=== PATIENT | male | born 1950 | race Caucasian/White ===

== ENCOUNTER 2019-06-16 09:07 | Outpatient (RCR) | payer MEDICAID, SELFPAY | END 2019-07-15 23:59 | disposition home or self-care (01) | LOC: WOUND 09:07 | PROVIDERS: Family Provider Nurse Practitioner; PCP Nurse Practitioner; Visit Provider Nurse Practitioner Family | DX: Z09 Encounter for follow-up examination after completed treatment for conditions other than malignant neoplasm (principal) | CPT/HCPCS: 99214; G0463 ==

== ENCOUNTER 2019-06-28 10:37 | Outpatient (CLI) | payer MEDICAID, SELFPAY ==
--- NOTE | 2019-06-28 10:46 | USCV_ITS ---
Jaime Olivares Age: 69 Gender: M : 1950 Exam Date: 06/28/2019 10:51 Ordering Phys: Marylou Song Technologist: [place] [facility] [place]ication: NON HEALING ULCER RIGHT LEFT Brachial 128.00 mmHg Brachial 127.00 mmHg Pressure (mmHg) Waveform Pressure (mmHg) Waveform 156.00 LOSS PREVENTION ASSOCIATE 128.00 119.00 DPA 146.00 1.22 Ankle/Brachial Index 1.14 113.00 Pre-Exercise Toe Pressure 112.00 0.88 Pre-Exercise Toe/Brachial Index 0.88 FINDINGS Normal resting ABIs bilaterally Normal resting TBIs bilaterally CONCLUSIONS No significant arterial obstruction, based on the above findings Dr Lilly Rowell MD [facility] (Electronically Signed) Final Date: 28 June 2019 19:33 S
== END 2019-06-28 10:38 | disposition home or self-care (01) ==
PROVIDERS: Family Provider Nurse Practitioner; PCP Nurse Practitioner; Visit Provider Nurse Practitioner Family
DX: M79.605 Pain in left leg (principal); M79.604 Pain in right leg
CPT/HCPCS: 93922

== ENCOUNTER → 2019-07-18 09:35 | Outpatient (BNVA) | payer MEDICAID, SELFPAY | PROVIDERS: Family Provider Nurse Practitioner; PCP Nurse Practitioner; Referring Provider Nurse Practitioner Family; Visit Provider Otolaryngology | DX: J38.3 Other diseases of vocal cords (principal); R49.0 Dysphonia; R13.10 Dysphagia, unspecified; J44.9 Chronic obstructive pulmonary disease, unspecified; K21.9 Gastro-esophageal reflux disease without esophagitis; F17.210 Nicotine dependence, cigarettes, uncomplicated | CPT/HCPCS: 31575; 99214 ==

== ENCOUNTER → 2019-08-11 10:08 | Outpatient (BNVA) | payer MEDICAID, SELFPAY | PROVIDERS: Family Provider Nurse Practitioner; PCP Nurse Practitioner; Visit Provider Otolaryngology | DX: J38.3 Other diseases of vocal cords (principal); R49.0 Dysphonia; R13.10 Dysphagia, unspecified; J44.9 Chronic obstructive pulmonary disease, unspecified; K21.9 Gastro-esophageal reflux disease without esophagitis; J30.0 Vasomotor rhinitis; F17.210 Nicotine dependence, cigarettes, uncomplicated | CPT/HCPCS: 99214 ==

== ENCOUNTER → 2019-08-15 15:04 | Outpatient (BNVA) | payer MEDICAID, SELFPAY | PROVIDERS: Family Provider Nurse Practitioner; PCP Nurse Practitioner; Visit Provider Nurse Practitioner Family | DX: Z01.818 Encounter for other preprocedural examination (principal); J43.9 Emphysema, unspecified; R11.0 Nausea | CPT/HCPCS: 71046; 80053; 85025 ==

== ENCOUNTER 2019-08-17 14:00 | Outpatient (RCR) | payer MEDICAID, SELFPAY ==
[2019-08-17 15:20] LABS: ABG PH Result 7.39 (7.35-7.45); Alveolar-Arterial Oxygen Gradi 22.2 mmHg (5-10); Arterial Blood Gas Hematocrit 44.9 % (42-52); Base Excess ABG 7.5 mmol/L (-2.0-2.0); Blood Gas Allen Test Pos; Blood Gas Sample Site Radial, right; Blood Gas Sample Type Arterial; Carboxyhemoglobin 5.9 %THgb (0.4-20.1); HCO3 ABG 34.5 mmol/L (22-26); HGB O2 Sat 86.5 % (95-100); Ionized Calcium Level - ABG 1.2 mmol/L (1.1-1.4); Methemoglobin 0.8 % (0.4-1.5); Oxygen Device ROOM AIR; Oxygen Saturation ABG 92.7; Potassium Level - ABG 3.8 mmol/L (3.5-5.0); Total Hemoglobin 14.7 g/dL (14-18)
--- NOTE | 2019-08-17 16:20 | PFTS_ITS ---
Date of Study:08/17/19 Date of Dictation: MECHANICS: Forced vital capacity (FVC) is reduced. Forced expiratory volume in one second (FEV1) is reduced. FEV1/FVC is reduced. FLOW VOLUME LOOP: Reduced flow at all lung volumes with significant scooping. LUNG VOLUMES: Total lung capacity (TLC) is normal. Residual volume (RV) is increased. DIFFUSING CAPACITY FOR CARBON MONOXIDE: Moderately reduced but not corrected for hemoglobin. INTERPRETATION: The pulmonary function tests are consistent with very severe airflow obstruction. Lung volumes are consistent with air trapping. Gas exchange (DLCO) is moderately reduced. MTDD
== END 2019-09-13 23:59 | disposition home or self-care (01) ==
LOC: RT 14:00
PROVIDERS: Internal Medicine Critical Care Medicine; Family Provider Nurse Practitioner; PCP Nurse Practitioner; Visit Provider Nurse Practitioner Family
DX: J44.9 Chronic obstructive pulmonary disease, unspecified (principal); F17.210 Nicotine dependence, cigarettes, uncomplicated
CPT/HCPCS: 36600; 80051; 82810; 83986; 94010; 94060; 94726; 94729

== ENCOUNTER 2019-08-24 07:53 | Day surgery (SDC) | payer MEDICAID, SELFPAY ==
[2019-08-23 10:16] VITALS: BMI 30.9
[2019-08-24] VITALS (10 sets, daily range): BP systolic 133–150; BP diastolic 63–82; PULSE 77–88; RESP 15–24; TEMP 36.6–36.9; O2SAT 93–98
--- NOTE | 2019-08-24 08:12 | W.PM.OPSUD ---
Surgery/Procedure H&P Update DATE OF PROCEDURE: August 24, 2019 DATE H&P PERFORMED: 08/11/19 H&P UPDATE INFORMATION: I have reviewed H&P completed within last 30 days, I have examined patient prior to procedure and No changes to prior documentation PREOP DIAGNOSIS: Vocal cord lesion PLANNED PROCEDURE: Operation Date: 08/24/19 09:00 Proposed Procedures p Micro Direct Laryngoscopy [facility] ([id number], [id number])(Not Applicable) - Nikunj Benson MD s EGD(Not Applicable) - Nikunj Benson MD
[2019-08-24] MEDS: sodium chloride 0.9% 1,000 ML 30 ML IV (08:21)
--- NOTE | 2019-08-24 09:37 | P.ANESASSM_ITS ---
Pre-Anesthetic Assessment Pre-Anesthetic Assessment: Height/Weight: Height 1.91 m Weight 112.491 kg Temp Pulse Resp BP Pulse Ox 98.1 F 77 24 H 143/82 98 08/24/19 08:16 08/24/19 08:16 08/24/19 08:16 08/24/19 08:16 08/24/19 08:16 Preop Diagnosis: Vocal cord lesion Proposed Procedure: Operation Date: 08/24/19 09:00 Proposed Procedures p Micro Direct Laryngoscopy [facility] ([id number], [id number])(Not Applicable) - Nikunj Benson MD s EGD(Not Applicable) - Nikunj Benson MD Was Beta Soledad taken within 24 hours: N/A Last intake: Intake Last Liquid Date 08/23/19 Last Liquid Time 22:00 Last Solid Date 08/23/19 Last Solid Time 22:00 Social: Social History: Tobacco and No alcohol Exam: Pre-Anes Outpt Exam: alert, oriented x 3, clear to auscultation bilaterally and regular rate & rhythm Airway: Submandibular: WNL Cervical ROM: Other (Limited ROM) Dentition: False Pulmonary: Pulmonary: COPD (Home O2 4L) Comments: Chronic steroids CV/HEM: CV/HEM: CHF Comments: Very limited functional ability, pedal edema : : None reported Hepatic: Hepatic: None reported GI: GI: GERD Metabolic: Metabolic: Morbid obesity Musc/skel: Musc/skel: Lower Back Pain Comments: Chronic opioid Neuropsych: Neuropsych: None reported Anesthetic Plan: ASA status: 4 Anesthesia: General Risk of > 500 ml blood loss (7ml/kg in children): No Meds/Allergies Current Medications: Current Medications Generic Name Dose Route Start Last Admin Trade Name Freq PRN Reason Stop Dose Admin Sodium Chloride 1,000 mls @ 30 ml s/hr 08/24/19 08:00 08/24/19 08:21 Sodium Chloride 0.9% IV 08/25/19 07:59 30 mls/hr .Q24H VIMAL Administration PFSH Anesthesia PFSH: Medical History (Updated 08/23/19 @ 16:35 by Kaila Reyes MD) Acquired bilateral hammer toes Acute diverticulitis Bee sting allergy Bilateral bunions Bulging lumbar disc Chronic bilateral low back pain Chronic low back pain Chronic nausea Chronic respiratory failure with hypoxia COPD (chronic obstructive pulmonary disease) Degenerative disc disease Dysphagia, unspecified Emphysema, unspecified GERD (gastroesophageal reflux disease) GERD (gastroesophageal reflux disease) History of colon cancer Lesion of true vocal cord Lower extremity edema Mixed hyperlipidemia Nicotine dependence, cigarettes, uncomplicated Onychomycosis MANISH (obstructive sleep apnea) Other specified joint disorders, right shoulder PAD (peripheral artery disease) Polyneuropathy, unspecified Sebaceous cyst of scrotum Segmental and somatic dysfunction of rib cage Vasomotor rhinitis Venous reflux Social History Smoking and tobacco status: current every day smoker cigarettes Years cigarettes smoked: 50 [ Other cigarette details: less than 1/2 pack ] and e- cigarettes E-Cigarette Details: vaporizer device, with nicotine and without nicotine Alcohol intake: never Lives independently: Yes Household members: spouse Marital status: Current occupational status: retired History of recent travel: No Current gender identity: Male Data Anesthesia Cardiac Studies: No Data to Display
--- NOTE | 2019-08-24 09:56 | W.PM.OPSUD ---
Surgery/Procedure H&P Update DATE OF PROCEDURE: August 24, 2019 DATE H&P PERFORMED: 08/23/19 H&P UPDATE INFORMATION: I have reviewed H&P completed within last 30 days, I have examined patient prior to procedure and No changes to prior documentation PREOP DIAGNOSIS: Vocal cord lesion PLANNED PROCEDURE: Operation Date: 08/24/19 09:00 Proposed Procedures p Micro Direct Laryngoscopy [facility] ([id number])(Not Applicable) - Nikunj Benson MD s EGD(Not Applicable) - Nikunj Benson MD
--- NOTE | 2019-08-24 11:03 | PM.OP ---
Operative Report Date of procedure: August 24, 2019 Pre-op Diagnosis: Vocal cord lesion Post-op diagnosis: same Post-op Findings: Bilateral vocal cord exophytic lesion Procedure Done: Esophagogastroduodenoscopy with biopsy of gastric and esophageal mucosa, MicroDirect laryngoscopy with removal of vocal cord lesions Specimens removed/disposition: Bilateral vocal cord lesions, mid esophagus, distal esophagus, gastric biopsy Surgeon: Nikunj Benson Anesthesia: General Complications: None Condition: stable Disposition: PACU Brief History: Mr. Olivares is a 69-year-old male with severe COPD who presents with exophytic lesion on the vocal folds Procedure: The patient was taken to the operating room and under satisfactory general endotracheal anesthesia of the gastroscope was introduced into the post cricoid area. The esophagus stomach and duodenum were examined. The exam was significant for an erosive distal esophagitis extending 1 cm superiorly and encompassing about 20% of the circumference of the distal esophagus from 6:00 to 8:00. The gastric mucosa also showed inflammatory changes. The esophagus also demonstrated to regularization without improve movement or resolution with insufflation. The duodenal mucosa was unremarkable. Biopsies were taken of the gastric distal esophageal and mid esophageal mucosa. The laryngoscope was used to examine the posterior pharyngeal wall lateral pharyngeal wall Endo and excellent larynx. The exam was significant for an exophytic lesion on the left vocal fold right vocal fold and anterior cord. Pattern Layout Worker biopsies were taken these were sent separately for analysis. The debrider was used to then remove the bulk of the lesion. Blood loss was minimal the patient tolerated the procedure well no complications occurred he was allowed awaken and taken to the recovery room where he was observed during the observation time postoperative care instructions and counseling were given to the patient and his . Once all parties verbalized understanding of all instructions and once the patient met discharge criteria he was discharged in satisfactory and stable condition.
--- NOTE | 2019-08-24 11:25 | SUR.PHASEI ---
1114 PATIENT TO PACU AT THIS TIME. RR EVEN AND UNLABORED, ORAL AIRWAY IN PLACE. NC O2, SPO2 95%. PATIENT NOTED TO BE SLEEPING, AIRWAY PROTECTED.
--- NOTE | 2019-08-24 11:46 | PC.NURSE ---
1146- ORAL AIRWAY OUT. CANNULA AT 4LPM, SAT 96%
--- NOTE | 2019-08-24 13:13 | PM.PACU ---
PACU note Post-Anesthesia Exam: awake and vital signs stable Disposition: discharged
== END 2019-08-24 13:29 | disposition home or self-care (01) ==
PROVIDERS: Family Provider Nurse Practitioner; Visit Provider Otolaryngology
PROC: 0CJS8ZZ Inspection of Larynx, Via Natural or Artificial Opening Endoscopic (ICD-10-PCS; CPT 31541; principal; 2019-08-24 09:00)
PROC: 0DJ08ZZ Inspection of Upper Intestinal Tract, Via Natural or Artificial Opening Endoscopic (ICD-10-PCS; CPT 43235; 2019-08-24 09:00)
DX: J38.3 Other diseases of vocal cords (principal); Z99.81 Dependence on supplemental oxygen; I50.9 Heart failure, unspecified; K21.9 Gastro-esophageal reflux disease without esophagitis; E66.01 Morbid (severe) obesity due to excess calories; Z68.31 Body mass index [BMI] 31.0-31.9, adult; J43.9 Emphysema, unspecified; Z85.038 Personal history of other malignant neoplasm of large intestine; E78.2 Mixed hyperlipidemia; G47.33 Obstructive sleep apnea (adult) (pediatric); F17.210 Nicotine dependence, cigarettes, uncomplicated
CPT/HCPCS: 31541; 43239; 12345; 88305; J1100; J2405; J2704; J3535; J7030

== ENCOUNTER 2019-11-09 06:50 | Outpatient (RCR) | payer MEDICAID, SELFPAY ==
--- NOTE | 2019-11-09 | CT_ITS ---
Radiation Therapy Planning CT images; total exam DLP: 445.55 mGy-cm MTDD
== END 2019-11-13 23:59 | disposition home or self-care (01) ==
LOC: ONCMED 06:50
PROVIDERS: PCP Nurse Practitioner; Visit Provider Radiology Radiation Oncology
DX: B37.9 Candidiasis, unspecified (principal); J96.10 Chronic respiratory failure, unspecified whether with hypoxia or hypercapnia; J38.7 Other diseases of larynx; Z74.09 Other reduced mobility
CPT/HCPCS: 77290; 77334

== ENCOUNTER 2019-12-13 06:50 | Outpatient (RCR) | payer MEDICAID, SELFPAY ==
--- NOTE | 2019-11-22 11:14 | N.ONRAD NP_ITS ---
Radiation Oncology Weekly Treatment Management Patient: Jaime Olivares MR#: [id number] : 1950> Age: 69> Sex: Male Dictated by: India Gan Date of Service: 11/22/2019 Referring Physician(s) : Dr. 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 The patients has had Course: Glottis 63Gy Treatment Site: Glottis 63Gy, Ref. ID: [id number], Energy: 6X, Dose/Fx (cGy): 225, #Fx: , Dose Correction (cGy): 0, Total Dose (cGy): 1,125, Start Date: 11/16/2019, Elapsed Days: 6. Patient Has complaint of having mouth sores. Patient was seen at the [facility] and prescribed Nystatin with Lidocaine for it. Nursing assessment of patient as follows: Constitutional Complains of mild fatigue. Denies lack of appetite, fever and night sweats. ENMT Complains of stomatitis. Denies dysphagia, ear pain, mouth dryness and altered taste. Respiratory Complains of cough which is non-productive. Complains of dyspnea on 4 L 02. Complains of wheezing. Questions encouraged and answered. I encouraged patient to call with any concerns. Patient verbalized understanding and denied any further needs at this time. Vital Signs: Performed on 11/22/2019 10:53 AM BMI - 32.473 kg/m2 (high), Height - 75.00 in, Weight - 259.8 lbs, Temperature - 97.4 f, Pulse - 80, Respiration - 22, O2 Sat - 97 %, Pain - 0 and BP - 122/ 74 mm(hg). Signed by: India Gan>11/22/2019 11:13:05 AM <<Signature on File>>
--- NOTE | 2019-11-29 12:18 | ONCRAD TMN_ITS ---
Radiation Oncology Weekly Treatment Management Patient: Jaime Olivares MR#: [id number] : 1950> Age: 69> Sex: Male Dictated by: Dr. Markie Swanson Date of Service: 11/29/2019 Referring Physician(s) : Dr. 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 ID: [id number], Energy: 6X, Dose/Fx (cGy): 225, #Fx: , Dose Correction (cGy): 0, Total Dose (cGy): 2,250, Start Date: 11/16/2019, End Date: 11/29/2019, Elapsed Days: 13 Current Complaints/Interval History: Sore throat is his main complaint. He states that his pain was beginning to improve after his biopsy and then it began to worsen again after starting radiation. He has no trouble swallowing but does notice discomfort with swallowing any type of liquid or food. He also notices more irritation and dryness when he awakens in the morning. His oxygen needs are unchanged and he has not experienced any increase in dyspnea. His hoarseness is stable and has been present for at least a few months. Constitutional Complains of mild fatigue. Denies lack of appetite, fever and night sweats. ENMT Complains of dysphagia, mouth dryness and altered taste. Denies ear pain and stomatitis. Neck Denies neck pain. Integumentary No redness to the neck Respiratory Complains of cough, dyspnea on 6 liters of 02 and wheezing. Current Medications: Advair Diskus, albuterol Sulfate, valium, xyzal. Allergies: fentaNYL, Gabapentin, Methadone HCl and Penicillins. Vital Signs: Performed on 11/29/2019 11:04 AM BMI - 32.598 kg/m2 (high), Height - 75.00 in, Weight - 260.8 lbs, Temperature - 98.8 f, Pulse - 66, Respiration - 24, O2 Sat - 93 % (low), Pain - 9 and BP - 113/ 57 mm(hg)(/low). Physical Exam: Appears stable, no skin erythema or desquamation. Chronically ill. Confined to a wheelchair. Skin of his neck has no irritation. Oral cavity and oropharynx exam reveals no evidence of yeast or viral ulcerations. Performance Status: 3 - Capable of only limited self-care, confined to bed or chair more than 50% of waking hours. (ECOG) Lab: None pending in Radiation Oncology. Imaging: No new diagnostic imaging was performed since the last weekly treatment visit. All radiation therapy related imaging (including but not limited to kV, MV, and CBCT generated images) was reviewed. Appropriate changes, if any, were made to assure accurate target localization. Impression/Plan: Tolerating treatment reasonably well with expected sore throat . I discussed that it will last throughout treatment and for at least 2 to 3weeks following the completion of treatment. For treatment we will start with Magic mouthwash. He will probably need narcotics later in treatment.. Continue treatment as planned. Will call a prescription for Magic mouthwash to his pharmacy in [place]. CPT: 60328 Signed by: Dr. Markie Swanson>11/29/2019 12:17:22 PM <<Signature on File>>
--- NOTE | 2019-12-06 10:32 | ONCRAD TMN_ITS ---
Radiation Oncology Weekly Treatment Management Patient: Jaime Olivares MR#: [id number] : 1950> Age: 69> Sex: Male Dictated by: Dr. Markie Swanson Date of Service: 12/06/2019 Referring Physician(s) : Dr. 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 ID: [id number], Energy: 6X, Dose/Fx (cGy): 225, #Fx: , Dose Correction (cGy): 0, Total Dose (cGy): 3,150, Start Date: 11/16/2019, Elapsed Days: 20 Chief Complaint/History of Present Illness: He seemed drowsy when I went in the room, but he then proceeded to discuss his past history of evaluations by Dr. Chavez and Dr. Benson. He questioned whether his pathology is truly cancer. 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 I discussed that with him. His pain with swallowing is stable. His voice continues to be hoarse, although it is better this week than last week. I discussed these problems with him. I told him that he will likely be very hoarse, possibly down to a whisper, by the time he finishes radiation. We discussed that the voice usually recovers slowly over 6 weeks. We then discussed the sore throat. He is getting benefit from Magic mouthwash. He asked about the timing of resolution of the sore throat. I told him it would take 2 to 3 weeks to improve. I told him that there may still be some discomfort even at that point. His throat is clear on examination. His neck is free of lymphadenopathy. He has noticed some swelling on the right at times. I do not detect any today. He is developing a skin reaction with hyperpigmentation and moderate erythema. Aquaphor was recommended. Current Medications: Advair Diskus, albuterol Sulfate, valium, xyzal. Allergies: fentaNYL, Gabapentin, Methadone HCl and Penicillins. Current Complaints/Review of Systems: Constitutional - Complains of lack of appetite off and on. Complains of severe fatigue. Denies fever and night sweats. ENMT - Complains of dysphagia. Denies ear pain, mouth dryness, stomatitis and altered taste. Neck - Complains of swelling of the neck on the right side of the neck. Denies neck pain. Integumentary - Has brisk redness to the neck. Respiratory - Complains of cough which is non-productive. Complains of dyspnea and is on 6 L of 02. Complains of wheezing. Vital Signs: Performed on 12/06/2019 10:01 AM BMI - 33.073 kg/m2 (high), Height - 75.00 in, Weight - 264.6 lbs, Temperature - 98.2 f, Pulse - 79, Respiration - 16, O2 Sat - 93 % (low), Pain - 8 and BP - 100/ 68 mm(hg). Physical Exam: Appears stable, no skin erythema or desquamation. Performance Status: 3 - Capable of only limited self-care, confined to bed or chair more than 50% of waking hours. (ECOG) Lab: None pending in Radiation Oncology. Imaging: No new diagnostic imaging was performed since the last weekly treatment visit. All radiation therapy related imaging (including but not limited to kV, MV, and CBCT generated images) was reviewed. Appropriate changes, if any, were made to assure accurate target localization. Impression/Plan: Tolerating treatment with expected side effects. Continue treatment as planned. CPT: 74380 Signed by: Dr. Markie Swanson>12/06/2019 10:31:07 AM <<Signature on File>>
--- NOTE | 2019-12-13 10:48 | ONCRAD TMN_ITS ---
Radiation Oncology Weekly Treatment Management Patient: Jaime Olivares MR#: [id number] : 1950> Age: 69> Sex: Male Dictated by: Dr. Markie Swanson Date of Service: 12/13/2019 Referring Physician(s) : Dr. 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 ID: [id number], Energy: 6X, Dose/Fx (cGy): 225, #Fx: , Dose Correction (cGy): 0, Total Dose (cGy): 3,933.7, Start Date: 11/16/2019, Elapsed Days: 27 Chief Complaint/History of Present Illness: Mr. Olivares is slightly better than when he was last seen. His voice is stronger. Magic mouthwash is helping his sore throat. He has no discomfort of the skin of the neck. His weight is up about 14 pounds since his last evaluation. He states he is not on any fluid pills. He denies increasing the salt in his diet. The weight gain has not resulted in any pulmonary symptoms. His states that he has had problems with nausea. He was on promethazine in the past. That stopped working and his family physician recently put him on another medication that is not working. They say it is a nausea medication and not an acid teacher vocational training. I asked that they call in the name of the recently prescribed nausea medication. I told Mr. Olivares we will consider calling in an alternate to his drugstore. Current Medications: Advair Diskus, albuterol Sulfate, mouthwash Compounding Base, valium, xyzal. Allergies: fentaNYL, Gabapentin, Methadone HCl and Penicillins. Current Complaints/Review of Systems: Constitutional - Complains of severe fatigue. Complains of change in weight in which his weight is up 14.2 lbs. since last OTV. Denies lack of appetite, fever and night sweats. ENMT - Complains of dysphagia and stomatitis. Denies ear pain, mouth dryness and altered taste. Neck - Denies neck pain. Integumentary - Denies rash. Has small spot of desquamtion to the left side of the neck. Respiratory - Complains of cough which is non-productive. Complains of dyspnea and is on 6L 02. Complains of wheezing. Denies hiccoughs. Vital Signs: Performed on 12/13/2019 9:49 AM BMI - 34.923 kg/m2 (high), Height - 75.00 in, Weight - 279.4 lbs, Temperature - 97.4 f, Pulse - 79, Respiration - 24, O2 Sat - 98 %, Pain - 6 and BP - 113/ 67 mm(hg). Physical Exam: Appears stable, no skin erythema or desquamation. Moderate erythema of the skin of the neck in the treatment area. His oral cavity and oropharynx are free of ulceration, yeast, or lesions. Performance Status: 3 - Capable of only limited self-care, confined to bed or chair more than 50% of waking hours. (ECOG) Lab: None pending in Radiation Oncology. Imaging: No new diagnostic imaging was performed since the last weekly treatment visit. All radiation therapy related imaging (including but not limited to kV, MV, and CBCT generated images) was reviewed. Appropriate changes, if any, were made to assure accurate target localization. Impression/Plan: Tolerating treatment well with expected side effects. Continue treatment as planned. We discussed that his hoarseness is likely to worsen before he finishes treatment. I told him it may take 4 to 6 weeks after treatment for his voice to improve. We will continue Magic mouthwash for the sore throat. He has Aquaphor to apply to the skin reaction. We may give him an alternate nausea medication. CPT: 16249 Signed by: Dr. Markie Swanson>12/13/2019 10:46:51 AM <<Signature on File>>
== END 2019-12-13 23:59 | disposition home or self-care (01) ==
LOC: ONCMED 06:50
PROVIDERS: PCP Nurse Practitioner; Visit Provider Specialist
DX: Z51.0 Encounter for antineoplastic radiation therapy (principal); C32.0 Malignant neoplasm of glottis; I73.9 Peripheral vascular disease, unspecified; G47.33 Obstructive sleep apnea (adult) (pediatric); E87.2 Acidosis; J30.0 Vasomotor rhinitis; J38.3 Other diseases of vocal cords; K21.9 Gastro-esophageal reflux disease without esophagitis; J44.9 Chronic obstructive pulmonary disease, unspecified; Z79.899 Other long term (current) drug therapy
CPT/HCPCS: 77295; 77300; 77334; 77336; 77387; 77412

== ENCOUNTER 2019-12-30 07:29 | Outpatient (RCR) | payer MEDICAID, SELFPAY ==
--- NOTE | 2019-12-21 13:42 | ONCRAD TMN_ITS ---
Radiation Oncology Weekly Treatment Management Patient: Jaime Olivares MR#: [id number] : 1950 Age: 69 Sex: Male Dictated by: Dr. Juan Diego Roe Date of Service: 12/21/2019 Referring Physician(s) : Dr. 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 ID: [id number], Energy: 6X, Dose/Fx (cGy): 225, #Fx: , Dose Correction (cGy): 0, Total Dose (cGy): 4,833.7, Start Date: 11/16/2019, Elapsed Days: 35 Chief Complaint/History of Present Illness: The patient reports that his voice is stronger, and he no longer has painful swallowing. The patient's weight is down 10.4 pounds this prior week while the patient is undergoing Lasix therapy. The patient reports that his appetite is not diminished. Current Medications: Advair Diskus, albuterol Sulfate, mouthwash Compounding Base, prochlorperazine Maleate, valium, xyzal. Allergies: fentaNYL, Gabapentin, Methadone HCl and Penicillins. Current Complaints/Review of Systems: Constitutional - Complains of severe fatigue. Complains of change in weight in which he had a loss 10.4 lbs. from last week related to fluid loss and being prescribed Lasix for 3 days.. Denies lack of appetite, fever and night sweats. ENMT - Complains of mouth dryness. Denies dysphagia but has occasoinal odynophagia, ear pain, stomatitis and altered taste. Neck - Denies neck pain. Integumentary - Has redness to the neck. Vital Signs: Performed on 12/21/2019 9:47 AM BMI - 33.598 kg/m2 (high), Height - 75.00 in, Weight - 268.8 lbs, Temperature - 97.5 f, Pulse - 84, Respiration - 24, O2 Sat - 100 %, Pain - 0 and BP - 122/ 69 mm(hg). Physical Exam: Erythema and dry desquamation is appreciated on the skin overlying the glottic larynx. Performance Status: 3 - Capable of only limited self-care, confined to bed or chair more than 50% of waking hours. (ECOG) Lab: None pending in Radiation Oncology. Imaging: No new diagnostic imaging was performed since the last weekly treatment visit. All radiation therapy related imaging (including but not limited to kV, MV, and CBCT generated images) was reviewed. Appropriate changes, if any, were made to assure accurate target localization. Impression/Plan: Tolerating treatment well with expected side effects. The patient does not require pain medication optimization at this time. Continue treatment as planned. CPT: 34780 Signed by: Dr. Juan Diego Roe>12/21/2019 1:41:49 PM <<Signature on File>>
--- NOTE | 2019-12-27 17:29 | ONCRAD TMN_ITS ---
Radiation Oncology Weekly Treatment Management Patient: Jaime Olivares MR#: [id number] : 1950> Age: 69> Sex: Male Dictated by: Dr. Juan Diego Roe Date of Service: 12/27/2019 Referring Physician(s) : Dr. 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 ID: [id number], Energy: 6X, Dose/Fx (cGy): 225, #Fx: , Dose Correction (cGy): 0, Total Dose (cGy): 5,733.7, Start Date: 11/16/2019, Elapsed Days: 41 Interim History: The patient reports that he has occasional odynophagia, but it is improving. He reports no neck pain. Current Medications: Advair Diskus, albuterol Sulfate, mouthwash Compounding Base, prochlorperazine Maleate, valium, xyzal. Allergies: fentaNYL, Gabapentin, Methadone HCl and Penicillins. Current Complaints/Review of Systems: Vital Signs: Performed on 12/27/2019 11:42 AM BMI - 34.298 kg/m2 (high), Height - 75.00 in, Weight - 274.4 lbs, Temperature - 98.5 f, Pulse - 88, Respiration - 2, O2 Sat - 93 % (low), Pain - 10 and BP - 129/ 64 mm(hg)(/low). Physical Exam: Bright erythema is appreciated on the bilateral neck, there is no evidence of moist desquamation. Performance Status: 3 - Capable of only limited self-care, confined to bed or chair more than 50% of waking hours. (ECOG) Lab: None pending in Radiation Oncology. Imaging: . All radiation therapy related imaging (including but not limited to kV, MV, and CBCT generated images) was reviewed. Appropriate changes, if any, were made to assure accurate target localization. Impression/Plan: Tolerating treatment well with expected side effects. Continue treatment as planned. CPT: 17776 Signed by: Dr. Juan Diego Roe>12/27/2019 5:27:28 PM <<Signature on File>>
== END 2020-01-13 23:59 | disposition home or self-care (01) ==
LOC: ONCMED 07:29
PROVIDERS: PCP Nurse Practitioner; Visit Provider Radiology Radiation Oncology
DX: Z51.0 Encounter for antineoplastic radiation therapy (principal); C32.0 Malignant neoplasm of glottis
CPT/HCPCS: 77336; 77387; 77412

== ENCOUNTER → 2020-01-18 08:47 | Outpatient (BNVA) | payer MEDICAID, SELFPAY | PROVIDERS: PCP Nurse Practitioner; Visit Provider Nurse Practitioner | DX: R60.0 Localized edema (principal) | CPT/HCPCS: 80048; 83735; 83880 ==

== ENCOUNTER 2020-02-06 06:18 | Outpatient (RCR) | payer MEDICAID, SELFPAY ==
--- NOTE | 2020-02-07 12:40 | ONCRAD EPV_ITS ---
Radiation Oncology Established Patient Visit Patient: Elise Sandoval [id number] : 1950> Age: 70> Sex: Male> Dictated by: Dr. Juan Diego Roe Date of Service: 02/06/2020 Referring Physician(s) : Dr. 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 ID: [id number], Energy: 6X, Dose/Fx (cGy): 225, #Fx: , Dose Correction (cGy): 0, Total Dose (cGy): 6,183.7, Start Date: 11/16/2019, End Date: 12/29/2019, Elapsed Days: 43 Treatment Site: Glottis 63Gy, Ref. ID: [id number], Energy: 6X, Dose/Fx (cGy): 116.3, #Fx: , Dose Correction (cGy): 0, Total Dose (cGy): 116.3, Start Date: 12/30/2019, End Date: 12/30/2019, Elapsed Days: 0 Current History: The patient is seen in follow-up approximately 1 month after completing radiation therapy. He reports that his swallowing has significantly improved. He has no complaints aside from fatigue and bilateral lower extremity edema. Current Medications: Advair Diskus, albuterol Sulfate, lasix, mouthwash Compounding Base, valium, xyzal. Allergies: fentaNYL, Gabapentin, Methadone HCl and Penicillins. Current Complaints / Review of Systems: Constitutional - Complains of severe fatigue. Denies lack of appetite, fever, night sweats and change in weight. Eyes - Denies blurred vision. ENMT - Complains of mouth dryness occasionally. Denies dysphagia, ear pain, stomatitis and altered taste. Neck - Denies neck pain. Integumentary - Denies rash. Cardiovascular - Complains of edema in the both feet and ankles. Denies arrhythmias and chest pain. Respiratory - Complains of a moderate cough which is non-productive. Complains of dyspnea on 4 L 02. Complains of wheezing. Denies hemoptysis. Gastrointestinal - Denies abdominal pain, constipation, diarrhea, heartburn / dyspepsia, melena / GI bleeding, nausea and vomiting. Genitourinary (M) - Denies dysuria, frequency, nocturia and urgency. Musculoskeletal - Complains of joint pain genralized all over and muscle weakness. Denies bone pain. Neurologic - Denies dizziness and headaches. Psychiatric - Complains of depression. Endocrine - Denies diabetes and thyroid disease. Hematologic/Lymphatic - Denies tender or enlarged lymph nodes.. Vital Signs: Performed on 02/06/2020 8:22 AM BMI - 34.698 kg/m2 (high), Height - 75.00 in, Weight - 277.6 lbs, Temperature - 98.8 f, Pulse - 82, Respiration - 22, O2 Sat - 93 % (low), Pain - 10 and BP - 138/ 81 mm(hg). Physical Exam: General: Alert and oriented x 3. No acute distress. HEENT: Normocephalic, atraumatic. Extraocular Movements Intact: Pupils Equal, Round, Reactive to Light and Accommodation: Sclerae anicteric. Oral cavity is clear without lesions, masses or ulcers. NECK: Supple without supraclavicular or jugular lymphadenopathy. LUNGS: Clear to auscultation bilaterally without rales, rhonchi or wheeze. HEART: Regular rate and rhythm, normal S1 and S2 without murmur, gallop or rub. MUSCULOSKELETAL: No tenderness or percussion pain over the axial skeleton, scapulae or pelvis. EXTREMITIES: Bilateral lower extremity edema is appreciated. NEUROLOGIC: Cranial nerves II ???XII are grossly intact. Normal sensation, strength 5/5 in all extremities, normal gait, no ataxia. Performance Status: 3 - Capable of only limited self-care, confined to bed or chair more than 50% of waking hours. (ECOG) Lab: None pending. Pathology: Primary, c32.0 - malignant neoplasm of glottis, Diagnosed 10/20/2019 (active) stage 0, tis, n0, m0. Imaging: See HPI Impression: The patient is a 70-year-old male who completed radiation therapy for management of Tis carcinoma of the glottic larynx. His acute side effects from radiation therapy are resolving well. I plan to follow-up in 2 months with a nasolaryngoscopy at that time. Signed by: 02/07/2020 12:40:09 PM <<Signature on File>> Time spent with patient: CPT Code: CPT Code:
== END 2020-02-13 23:59 | disposition home or self-care (01) ==
LOC: ONCMED 06:18
PROVIDERS: PCP Nurse Practitioner; Visit Provider Radiology Radiation Oncology
DX: C32.0 Malignant neoplasm of glottis (principal)

== ENCOUNTER 2020-04-04 08:39 | Outpatient (CLI) | payer MEDICAID, SELFPAY ==
--- NOTE | 2020-04-04 12:04 | ONCRAD EPV_ITS ---
Radiation Oncology Established Patient Visit Patient: Elise Sandoval [id number] : 1950> Age: 70> Sex: Male> Dictated by: Dr. Juan Diego Roe Date of Service: 04/04/2020 Referring Physician(s) : Dr. 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 (Moderate dysplasia was observed on the left true cord, and high-grade dysplasia was observed in the larynx biopsy). Treatment rendered: 63 Gy in 29 fractions. This consisted of 61.837 Gy in 28 fractions of 2.25 Gy/fraction (11/16/19 ??? 12/29/19). Due to a maintenance issue with the treating LINAC, the remaining 1.163 Gy was delivered in 1 fraction on 12/30/2019. Current History: The patient is seen today in follow-up and he reports persistent pain in his throat, and odynophagia to solids and liquids. He reports having recently been diagnosed with oral thrush which was treated with a mouthwash compounding base by his primary care physician. The patient reports that symptoms moderately improved with this medication. Current Medications: Advair Diskus, albuterol Sulfate, clindamycin HCl, lasix, lidocaine HCl, magnesium, mouthwash Compounding Base, markell-Synephrine Cold & Sinus, potassium Chloride ER, valium, xyzal. Allergies: fentaNYL, Gabapentin, Methadone HCl and Penicillins. Current Complaints / Review of Systems: Constitutional - Complains of moderate fatigue. Complains of change in weight down about 30 lbs. from fluid loss in bilateral lower extremity. Denies lack of appetite, fever and night sweats. Eyes - Denies blurred vision. ENMT - Complains of dysphagia and also has odynophagia, mouth dryness and altered taste but is improving. Denies ear pain, problems with hearing, stomatitis and tinnitus. Neck - Denies neck pain, decreased range of motion and swelling of the neck. Integumentary - Denies rash. Cardiovascular - Complains of edema in the left leg. Denies arrhythmias and chest pain. Respiratory - Complains of a mild cough which is productive. Complains of dyspnea on 4 L 02. Complains of wheezing. Denies hemoptysis and hiccoughs. Gastrointestinal - Complains of occasional constipation. Denies abdominal pain, diarrhea, heartburn / dyspepsia, melena / GI bleeding and vomiting. Genitourinary (M) - Complains of nocturia occasionally. Denies dysuria, frequency and urgency. Musculoskeletal - Complains of joint pain in the back and generalized all over. Complains of generalized muscle weakness. Denies bone pain. Neurologic - Denies dizziness and headaches. Endocrine - Denies diabetes and thyroid disease. Hematologic/Lymphatic - Denies tender or enlarged lymph nodes.. Vital Signs: Performed on 04/04/2020 9:00 AM BMI - 29.948 kg/m2 (high), Height - 75.00 in, Weight - 239.6 lbs, Temperature - 98.8 f, Pulse - 97, Respiration - 22, O2 Sat - 95 % (low), Pain - 8 and BP - 106/ 70 mm(hg). Physical Exam: General: Alert and oriented x 3. No acute distress. HEENT: Normocephalic, atraumatic. Extraocular Movements Intact: Pupils Equal, Round, Reactive to Light and Accommodation: Sclerae anicteric. Oral cavity is clear without lesions, masses or ulcers. NECK: Supple without supraclavicular or jugular lymphadenopathy. LUNGS: Clear to auscultation bilaterally without rales, rhonchi or wheeze. HEART: Regular rate and rhythm, normal S1 and S2 without murmur, gallop or rub. MUSCULOSKELETAL: No tenderness or percussion pain over the axial skeleton, scapulae or pelvis. NEUROLOGIC: Cranial nerves II ???XII are grossly intact. Normal sensation, strength 5/5 in all extremities, normal gait, no ataxia. Nasolaryngoscopy: Prior to nasolaryngoscopy, a 50/50 solution of 1% lidocaine and 0.5% Markell-Synephrine was atomized into the bilateral nostrils. Nasolaryngoscopy was completed with entrance into the right naris. There was no mucosal irregularity within the nasopharynx, oropharynx, or supraglottic larynx. There was no exophytic lesion on the right cord, left cord, or anterior commissure. However, there was physical exam findings consistent with Angelina on the bilateral true vocal cords (right greater than left). Vocal cords moved freely bilaterally, and the bilateral piriform sinuses were without mucosal irregularity. Performance Status: 3 - Capable of only limited self-care, confined to bed or chair more than 50% of waking hours. (ECOG) Lab: None pending. Pathology: Primary, c32.0 - malignant neoplasm of glottis, Diagnosed 10/20/2019 (active) stage 0, tis, n0, m0. 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 The patient has no clinical exam findings consistent with disease persistence. However, nasolaryngoscopy revealed physical exam findings consistent with Angelina on the bilateral true vocal cords (right greater than left). A prescription for Diflucan was written, 200 mg day 1, 100 mg/day x 13 days. I plan to follow-up with the patient in 2 weeks with a repeat nasolaryngoscopy. Signed by: 04/04/2020 12:02:46 PM <<Signature on File>> Time spent with patient: CPT Code: CPT Code:
== END 2020-04-04 08:40 | disposition home or self-care (01) ==
PROVIDERS: PCP Nurse Practitioner; Visit Provider Radiology Radiation Oncology
DX: C32.0 Malignant neoplasm of glottis (principal)

== ENCOUNTER 2020-04-19 06:38 | Outpatient (CLI) | payer MEDICAID, SELFPAY ==
--- NOTE | 2020-04-19 11:25 | ONCRAD EPV_ITS ---
Radiation Oncology Established Patient Visit Patient: Elise Sandoval [id number] : 1950 Age: 70 Sex: Male Dictated by: Dr. Juan Diego Roe Date of Service: 04/19/2020 Referring Physician(s) : Dr. 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 (Moderate dysplasia was observed on the left true cord, and high-grade dysplasia was observed in the larynx biopsy). Treatment rendered: 63 Gy in 29 fractions. This consisted of 61.837 Gy in 28 fractions of 2.25 Gy/fraction (11/16/19 ??? 12/29/19). Due to a maintenance issue with the treating LINAC, the remaining 1.163 Gy was delivered in 1 fraction on 12/30/2019. Current History: The patient continues to smoke and he reports odynophagia. However, physical exam demonstrates mild laryngeal swelling, a resolved laryngeal candidal infection, and no evidence of malignancy in the true vocal cords. Current Medications: Advair Diskus, albuterol Sulfate, celeXA, clindamycin HCl, diflucan, lasix, lidocaine HCl, magnesium, mouthwash Compounding Base, markell-Synephrine Cold & Sinus, oxyCONTIN, oxyCONTIN, potassium Chloride ER, promethazine HCl, valium, xyzal. Allergies: fentaNYL, Gabapentin, Methadone HCl and Penicillins. Current Complaints / Review of Systems: Constitutional - Complains of mild fatigue. Denies lack of appetite, fever and night sweats. Eyes - Denies blurred vision and double vision. ENMT - Complains of dysphagia in the morning, mouth dryness and altered taste. Denies ear pain and stomatitis. Neck - Denies neck pain and decreased range of motion. Integumentary - Denies rash. Cardiovascular - Denies chest pain. Respiratory - Complains of a mild cough which is non-productive. Complains of dyspnea on 4 L 02. Complains of wheezing. Denies hiccoughs. Gastrointestinal - Complains of occasional constipation. Complains of nausea. Denies abdominal pain, diarrhea, heartburn / dyspepsia and vomiting. Genitourinary (M) - Denies dysuria, frequency and urgency. Musculoskeletal - Complains of joint pain generalzied all over. Complains of generalized muscle weakness. Denies bone pain. Neurologic - Complains of frequent dizziness. Denies headaches. Endocrine - Denies diabetes and thyroid disease. Hematologic/Lymphatic - Denies tender or enlarged lymph nodes.. Vital Signs: Performed on 04/19/2020 10:40 AM BMI - 30.473 kg/m2 (high), Height - 75.00 in, Weight - 243.8 lbs, Temperature - 98.5 f, Pulse - 96, Respiration - 22, O2 Sat - 92 % (low), Pain - 7 and BP - 105/ 71 mm(hg). Physical Exam: General: Alert and oriented x 3. No acute distress. HEENT: Normocephalic, atraumatic. Extraocular Movements Intact: Pupils Equal, Round, Reactive to Light and Accommodation: Sclerae anicteric. Oral cavity is clear without lesions, masses or ulcers. NECK: Supple without supraclavicular or jugular lymphadenopathy. LUNGS: Clear to auscultation bilaterally without rales, rhonchi or wheeze. HEART: Regular rate and rhythm, normal S1 and S2 without murmur, gallop or rub. MUSCULOSKELETAL: No tenderness or percussion pain over the axial skeleton, scapulae or pelvis. ABDOMEN: Soft, nontender, nondistended without masses or organomegaly. Bowell sounds are present. EXTREMITIES: No peripheral edema is identified. Limited motor and sensory examination are grossly intact and symmetric bilaterally. NEUROLOGIC: Cranial nerves II ???XII are grossly intact. Normal sensation, strength 5/5 in all extremities, normal gait, no ataxia. Nasolaryngoscopy: The nasal cavity and nasopharynx was prepped with a 50-50 solution of 2% lidocaine and 0.5% Markell-Synephrine. The fiberoptic nasolaryngoscopy scope was placed into the right naris, the nasopharynx, oropharynx, supraglottic larynx, and piriform sinuses, were evaluated and there was no mucosal irregularity. The airway was patent, vocal cords were freely mobile bilaterally, and there was no evidence of irregularity on the right or left true vocal cord. Previously observed laryngeal candidal infection has resolved. Performance Status: 3 - Capable of only limited self-care, confined to bed or chair more than 50% of waking hours. 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 He was treated with radiation therapy to a total dose of 63 Gy (completed 12/30/2019). In follow-up today, there is no clinical or radiographic evidence of disease recurrence. The patient was strongly recommended to discontinue smoking, and continue surveillance with nasolaryngoscopy every 3 months. It is my understanding that the new radiation oncologist, Dr Templeton, does not conduct nasolaryngoscopy surveillance, but the [facility] is supposed to get a new ENT specialist in the near future. Our office will help facilitate ensuring that the patient receives adequate routine oncologic surveillance. I recommended that the patient follow-up with us in 3 months. Signed by Juan Diego Roe MD: 04/19/2020 11:23:58 AM <<Signature on File>> Time spent with patient: CPT Code: CPT Code:
== END 2020-04-19 06:39 | disposition home or self-care (01) ==
LOC: ONCMED 06:38
PROVIDERS: PCP Nurse Practitioner; Visit Provider Radiology Radiation Oncology
DX: C32.0 Malignant neoplasm of glottis (principal)

== ENCOUNTER 2020-07-05 14:34 | Inpatient (IN) | payer MEDICAID, SELFPAY ==
[2020-07-05] VITALS (33 sets, daily range): BP systolic 87–147; BP diastolic 57–95; PULSE 57–103; RESP 14–26; TEMP 36.3; O2SAT 92–100; BMI 33.7
--- NOTE | 2020-07-05 14:56 | XR_ITS ---
WS: [id number] Portable AP semiupright chest, 07/05/2020 Clinical Data: dyspnea Comparison: PA and lateral chest, 08/15/2019. Findings: The heart is enlarged. No nodules, masses or effusions are seen. The aortic arch and descen ding aorta shows tortuosity and calcification. There are old right rib fractures of the third through seventh ribs. No pneumonia or pneumothorax is present. The pulmonary vascularity is not increased. T here are monitor leads on the chest wall. There is an orthopedic anchor in the right humeral head. XR/XR chest 1V portable [id number] Impression: 1. Cardiomegaly. 2. Atherosclerosis.
--- NOTE | 2020-07-05 14:56 | CTR_ITS ---
PROCEDURE INFORMATION: Exam: CT Head Without Contrast Exam date and time: 07/05/2020 6:59 PM Age: 70 years old Clinical indication: Altered mental status/memory loss; Patient HX: PT intubated TECHNIQUE: Imaging protocol: Computed tomography of the head without contrast. Total images: 322 Radiation optimization: All CT scans at this facility use at least one of these dose optimization techniques: automated exposure control; mA and/or kV adjustment per patient size (includes targeted exams where dose is matched to clinical indication); or iterative reconstruction. COMPARISON: No relevant prior studies available. RADIATION DOSE METRICS: Total DLP (mGy-cm): 998.29 FINDINGS: Tubes, catheters and devices: Endotracheal tube. Nasogastric tube. Brain: No evidence of active or acute intracranial pathologic process, hemorrhage, or trauma. Cerebral and cerebellar atrophy with ventricular dilatation greater than that anticipated for patient's chronological age. No mass effect. No midline shift. Mild small vessel ischemic disease with senile periventricular leukomalacia. Cerebral ventricles: No ventriculomegaly. Bones/joints: Unremarkable. No acute fracture. Paranasal sinuses: Visualized sinuses are unremarkable. No fluid levels. Mastoid air cells: Visualized mastoid air cells are well aerated. Soft tissues: Unremarkable. CT/CT head wo con* [id number] IMPRESSION: No evidence of active or acute intracranial pathologic process, hemorrhage, or trauma. Radiation Dose CTDIVOL = (mGy): DLP = 998.29 (mGy-cm)
--- NOTE | 2020-07-05 15:02 | ECG_ITS ---
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 Measurements Intervals [place] Rate: 79 P: 81 SC: 152 QRS: -82 QRSD: 121 T: 157 QT: 335 QTc: 386 Interpretive Statements SINUS RHYTHM WITH OCCASIONAL SUPRAVENTRICULAR PREMATURE COMPLEXES POSSIBLE LEFT ATRIAL ENLARGEMENT [-0.1mV P WAVE IN V1/V2] RIGHT BUNDLE BRANCH BLOCK [120+ ms QRS DURATION, UPRIGHT V1, 40+ ms S IN I/aVL/V4/V5/V6] INFERIOR MYOCARDIAL INFARCTION [40+ ms Q WAVE AND/OR ST/T ABNORMALITY IN II/aVF], PROBABLY OLD Compared to ECG 07/05/2020 23:55:29 Right bundle-branch block now present Ventricular premature complex(es) no longer present Left-axis deviation no longer present Myocardial infarct finding still present Electronically Signed On 07-06-2020 19:13:01 MEDICAL HEALTH RESEARCHER by Lilly Rowell M.D. [id number]
[2020-07-05] MEDS: iohexol 350 mg/mL 100 mL Btl IV (15:15)
[2020-07-05 15:25] LABS: Urine Appearance Hazy (CLEAR); Urine Color Dark Yellow (Yellow)
[2020-07-05 15:26] LABS: Add Urine Microscopic? YES; Bilirubin Urine 1+ (Negative); Blood Urine 2+ (Negative); Glucose Urine UA Norm (Normal); Ketones Urine Negative (Negative); Leukocyte Esterase Urine Negative (Negative); Nitrate Urine Negative (Negative); Protein Urine Neg (Negative); Urobilinogen Urine 4 mg/dL (Negative); pH Urine 5 (5-7)
[2020-07-05 15:32] LABS: Basophils % 0.1 %; Hematocrit 44.5 % (42.0-52.0); Lymphocytes # 0.7 10^3/uL (0.8-4.8); Lymphocytes % 6.3 %; Mean Corpuscular HGB Conc 31.5 g/dL (30.0-36.0); Mean Corpuscular Hemoglobin 28.3 pg (28.0-34.0); Mean Corpuscular Volume 89.9 fL (80-94); Mean Platelet Volume 11.4 fL (7.4-10.4); Monocytes # 0.8 10^3/uL (0.2-0.9); Monocytes % 7.5 %; Neutrophils # 9.42 10^3/uL (1.8-7.7); Neutrophils % 85.3 %; Nucleated Red Blood Cells # 0.1 /100WBC; Nucleated Red Blood Cells % 0.5 %; Platelet Count 183 10^3/cmm (130-400); Red Blood Count 4.95 10^6/uL (4.1-5.3); Red Cell Distribution Width 14.4 % (12.1-15.1); White Blood Count 11.1 10^3/uL (4.0-10.0)
[2020-07-05 15:40] LABS: INR 1.65 (0.8-1.2)
[2020-07-05 15:42] LABS: D Dimer 2.84 ug/mIFEU (0-0.59)
[2020-07-05 15:43] LABS: ABG PH Result 7.33 (7.35-7.45); Arterial Blood Gas Hematocrit 43.9 % (42-52); Base Excess ABG 8.8 mmol/L (-2.0-2.0); Blood Gas Allen Test Pos; Blood Gas Operator Identificat BD; Blood Gas Sample Site Brachial, right; Blood Gas Sample Type Arterial; Carboxyhemoglobin 4.6 %THgb (0.4-20.1); HCO3 ABG 37.9 mmol/L (22-26); HGB O2 Sat 91.2 % (95-100); Methemoglobin 0.8 % (0.4-1.5); Oxygen Device BIPAP; PO2 ABG 89.6 mmHg (80.0-100.0); Total Hemoglobin 14.3 g/dL (14-18)
[2020-07-05 15:44] LABS: ABG PCO2 72.8 mmHg (35-45)
[2020-07-05 15:45] LABS: Add Urine Culture? No; Amorphous Sediment Urine 1+ /hpf; Bacteria Urine TRACE /hpf; Hyaline Casts Urine 15-25 /lpf; RBC Urine 0-4 /hpf (0-2); Squamous Epithelial Cell Urine 0-4 /hpf (0-5); WBC Urine 0-4 /hpf (0-5)
[2020-07-05 15:49] LABS: Influenza A by IFA Negative (Negative); Influenza B by IFA Negative (Negative)
[2020-07-05] MEDS: FUROsemide 10 mg/mL SDV 4mL 40 MG IVP (15:54)
[2020-07-05] MEDS: levofloxacin-dextrose 5 % 750 MG/150 ML PREMIX 100 MG IV (15:54)
[2020-07-05] MEDS: LORazepam 2 mg/mL INJ 1 mL 0.5 MG IVP (15:54)
[2020-07-05 16:03] LABS: SARS Covid-2 Antigen Negative (Negative)
[2020-07-05 16:19] LABS: Albumin Level 3.5 g/dL (3.5-5.2); Alcohol Level < 10 mg/dL (0-10); Alkaline Phosphatase 186 IU/L (40-130); Calcium 8.2 mg/dL (8.5-10.5); Carbon Dioxide 32 mmol/L (22-29); Chloride 77 mmol/L (98-107); Glomerular Filtration Rate 20.9 mL/min (90-130); Glucose 149 mg/dL (65-115); NT Pro B Type Natriuretic Pept 20066 pg/mL (0-125); Sodium 125 mmol/L (136-145); Total Bilirubin 1.8 mg/dL (0.15-1.2); Total Protein 6.5 g/dL (6.6-8.7); Troponin(5th) Baseline 474 ng/L (0-15)
[2020-07-05 16:20] LABS: Alanine Aminotransferase 397 U/L (0-41); Anion Gap 20.6 (5-19); Aspartate Amino Transferase 76 U/L (0-40); Potassium 4.6 mmol/L (3.5-5.1)
[2020-07-05 16:33] LABS: Blood Urea Nitrogen 136 mg/dL (8-23); Osmolality Calculated 307 mOsm/kg (285-295)
--- NOTE | 2020-07-05 16:48 | PC.PHAR ---
pt unable to verify medications-called pts and no answer-medications entered are meds that were previously filled at [facility] and there are some meds that were already entered on a previous entered med list- see pharmacy comments for which ones have been filled recently and which meds were already entered
--- NOTE | 2020-07-05 17:02 | ECG_ITS ---
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: : 1950 Requested By: Prakash Maldonado Order Number: [id number] Reading MD: ELIAN SUN Measurements Intervals [place] Rate: 67 P: 83 [place]: 189 QRS: -83 QRSD: 117 T: -4 QT: 422 QTc: 446 Interpretive Statements SINUS RHYTHM WITH OCCASIONAL VENTRICULAR PREMATURE COMPLEXES POSSIBLE LEFT ATRIAL ENLARGEMENT [-0.1mV P WAVE IN V1/V2] PATTERN CONSISTENT WITH PULMONARY DISEASE INFERIOR MYOCARDIAL INFARCTION , PROBABLY OLD [40+ ms Q WAVE AND/OR ST/T ABNORMALITY IN II/aVF] Compared to ECG 02/18/2018 16:17:26 Ventricular premature complex(es) now present Myocardial infarct finding now present Left-axis deviation no longer present Electronically Signed On 07-05-2020 18:02:14 DIRECTOR GOVERNMENT by ELIAN SUN [id number]
[2020-07-05] MEDS: succinylcholine 20 mg/mL SDV 10mL 100 MG IVP (17:03)
--- NOTE | 2020-07-05 17:09 | XR_ITS ---
WS: [id number] Portable AP upright chest, 07/05/2020, 1729 hours Clinical Data: post intubation Comparison: Portable chest, 07/05/2020 1509 hours Findings: The endotracheal tube is above the emily. The nasogastric tube appears to end of the stoma ch. The heart is enlarged but smaller. The old right rib fractures are seen. The pulmonary vasculari ty is not increased. No pneumonia or pneumothorax is seen. Monitor leads are on the chest wall. XR/XR chest 1V portable [id number] Impression: Satisfactory placement of endotracheal tube and nasogastric tube.
[2020-07-05] MEDS: midazolam 1 mg/mL INJ 2 mL 2.5 MG IVP (17:25)
--- NOTE | 2020-07-05 17:27 | PC.NURSE ---
Pt set up for RSI at 1700. Pt given Succ and Etomidate at 1703, 8.0 tube placed at 1704, 22 at the lip. Versed gtt started at 4ml/hr at 1710, Fentanyl gtt started at 25 mcg/hr at 1718, 18Fr OG placed at 1713, post-intubation XR done at 1727. Vent settings: TV 550, peep 10, RR 16, FiO2 50%.
--- NOTE | 2020-07-05 17:33 | W.ED.AMS ---
HPI - Altered Mental Status General: Chief Complaint: Altered Mental Status Stated Complaint: SOB/AMS/ + COUGH Time Seen by Provider: 07/05/20 14:51 History of Present Illness: HPI narrative: The patient is a 70-year-old male with severe COPD and chronic respiratory failure on 5 L of O2 at baseline, obstructive sleep apnea, CHF, peripheral arterial disease. He comes to the ER after he had an episode of altered mental status at home. EMS said his saturation was 70% on his oxygen. On arrival he is pretty lethargic and answers some questions appropriately but gets sleepy and he is satting 92% on his 5 L oxygen. He has shallow respirations and as he tends to fall asleep he respirations even less frequently. BiPAP was placed on him which did help oxygenate and ventilate him however the initial ABG was done right before the BiPAP was placed and still showed elevated CO2. His respiratory status slightly improved after the BiPAP placement and he became altered attempting to strike the nurse. 0.5 mg Ativan was given IV and he quickly fell asleep. His respiratory troubles continued and the decision was made to intubate him. He was sedated with 100 succinylcholine and 20 etomidate and achieved good sedation. During that time I used a [id number] to preoxygenate him with 100% O2. I used a laryngoscope and intubated him on the first attempt with an 8 oh ET tube 23cm at the gumline. Bilateral breath sounds were reduced but audible bilaterally consistent with his severe COPD. Saturating 100%. Postintubation blood pressure 110 systolic and stable. Patient tolerated well. Discussed patient's care and admission to the ICU with Dr. aMlagon who accepted to ICU. Review of Systems General: Reports: ROS unobtainable due to mental status [facility] ED PFSH: Medical History Acquired bilateral hammer toes Acute diverticulitis Bee sting allergy Bilateral bunions Bulging lumbar disc Chronic bilateral low back pain Chronic erythematous candidosis Chronic low back pain Chronic nausea Chronic respiratory failure with hypoxia COPD (chronic obstructive pulmonary disease) Degenerative disc disease Dysphagia, unspecified Emphysema, unspecified GERD (gastroesophageal reflux disease) History of colon cancer Hypersomnia Lesion of true vocal cord Lower extremity edema Mixed hyperlipidemia Nicotine dependence, cigarettes, uncomplicated Nocturia Onychomycosis MANISH (obstructive sleep apnea) Other specified joint disorders, right shoulder PAD (peripheral artery disease) Polyneuropathy, unspecified Sebaceous cyst of scrotum Segmental and somatic dysfunction of rib cage Blanco-Isaac syndrome Vasomotor rhinitis Venous reflux Surgical History H/O foot surgery H/O hernia repair History of back surgery History of cholecystectomy History of esophagogastroduodenoscopy (EGD) History of partial colectomy Family History Mother , Age 73 Hodgkin disease Cancer Father , Age 67 Stroke Social History Smoking and tobacco status: former smoker Quit status (tobacco): has quit using tobacco Year quit tobacco: 2019 - 1PPD x 50 Years Former quit date comment: Smokes non-nicotine vape Alcohol intake: never Desire information about alcohol rehabilitation?: No Counseling given: No Desire information about substance/drug rehabilitation?: No Counseling given: No Lives independently: Yes Household members: spouse Marital status: Highest education level completed: Some College, No Degree service: No Current occupational status: retired History of recent travel: No Current gender identity: Male Physical Exam Const: EXAM LIMITATIONS: altered mental status GENERAL APPEARANCE: in distress, combative, lethargic, ill appearing and Edematous NUTRITIONAL APPEARANCE: obese ORIENTATION/CONSCIOUSNESS: Yes confused and Yes lethargic HENMT: COMMON NORMALS: normocephalic, external ears normal and Normal external nose present HEAD & SCALP: normal to inspection and normocephalic NOSE: Normal external nose present EXTERNAL EAR: Yes external ears normal MOUTH: Normal oral and palatal mucosa present THROAT: posterior oropharynx normal Eye: COMMON NORMALS: Equal, round and reactive pupils present and EOMs intact bilaterally GENERAL EYE: appearance normal, both eyes and all related structures PUPIL: Yes Equal, round and reactive pupils present Neck/C-Spine: COMMON NORMALS: full ROM, no lymphadenopathy, no meningeal signs and no JVD GENERAL: Yes normal visual inspection Lymph: LYMPHATIC: no lymphadenopathy noted Chest: COMMONS NORMALS: normal inspection of the chest and normal palpation of entire chest wall Cardio: COMMON NORMALS: no JVD, regular rate, regular rhythm, S1 normal heart sound present, S2 normal heart sound present and Peripheral pulses 2+ throughout RATE: regular rate RHYTHM: regular rhythm HEART SOUNDS: S1 normal heart sound present and S2 normal heart sound present PERIPHERAL PULSES: Peripheral pulses 2+ throughout GI: COMMON NORMALS: Normal to inspection, nondistended, normoactive bowel sounds present, Soft to palpation, non-tender and no masses INSPECTION: Yes normal to inspection PALPATION: Yes Soft to palpation : COMMON NORMALS: Yes no CVA tenderness BLADDER/KIDNEY EXAM: Yes no CVA tenderness Back/Pelvis: COMMON NORMALS: no CVA tenderness, thoracic and lumbar spine normal to inspection, no thoracic nor lumbar tenderness and thoraco-lumbar ROM normal Extremity: COMMON NORMALS: normal to inspection, full ROM, capillary refill normal, no joint enlargement and no pedal edema GENERAL: Yes normal exam except as noted Neuro: SENSORIUM/ORIENTATION: Yes lethargic, Yes somnolent and Yes fluctuating sensorium MENINGEAL SIGNS: Yes no meningeal signs GAIT: Yes Unable to assess gait and Yes Other gait observations present (He stood to urinat on arrival.) MOTOR EXAM: 5/5 motor strength present throughout Psych: APPEARANCE: Yes unkempt and Yes disheveled ATTITUDE: Yes uncooperative and Yes agitated ACTIVITY/MOTOR BEHAVIOR: Yes psychomotor agitation and Yes restless Skin: NARRATIVE SKIN EXAM: 3+ bilateral lower extremity pitting edema to the mid thigh. Both lower extremities at the feet are erythematous and the left one is warm and erythematous. Possible cellulitis versus vascular congestion related to edema and peripheral vascular disease Urinary Catheter Management^: [place]: Cath Placed During This Visit: yes Urinary Catheter Date of Insertion: 07/05/20 Urinary Catheter Time of Insertion: 15:50 Procedures Intubation Time out performed: Yes sedative: Etomidate Mg Given: 20 paralytic: Succinylcholine Mg Given: 100 Laryngoscope: fiber optic video scope ET Tube Size: 8 ET Tube Uncuffed: No Tube Secured Depth (cm): 23 Tube Secured Location: teeth Tube Placement Confirmation: visualized tube passing through cords, equal breath sounds bilaterally, no breath sounds over epigastrium and confirmation by capnometry Patient Tolerated Procedure: well Intubation Complications: none Course Vital Signs: Vital signs: Vital Signs Temperature 97.4 F L 07/05/20 14:37 Pulse Rate 71 07/05/20 22:00 Respiratory Rate 16 07/05/20 21:00 Blood Pressure 133/84 07/05/20 22:00 Pulse Oximetry 97 07/05/20 22:00 MDM - Altered Mental Status MDM Narrative: Medical decision making narrative: On arrival he is pretty lethargic and answers some questions appropriately but gets sleepy and he is satting 92% on his 5 L oxygen. He has shallow respirations and as he tends to fall asleep he respirations even less frequently. BiPAP was placed on him which did help oxygenate and ventilate him however the initial ABG was done right before the BiPAP was placed and still showed elevated CO2. His respiratory status slightly improved after the BiPAP placement and he became altered attempting to strike the nurse. 0.5 mg Ativan was given IV and he quickly fell asleep. His respiratory troubles continued and the decision was made to intubate him. He was sedated with 100 succinylcholine and 20 etomidate and achieved good sedation. During that time I used a [id number] to preoxygenate him with 100% O2. I used a laryngoscope and intubated him on the first attempt with an 8 oh ET tube 23cm at the gumline. Bilateral breath sounds were reduced but audible bilaterally consistent with his severe COPD. Saturating 100%. Postintubation blood pressure 110 systolic and stable. Patient tolerated well. Discussed patient's care and admission to the ICU with Dr. Malagon who accepted to ICU. Lab Data: Labs: Lab Results 07/05/20 07/05/20 07/05/20 Range/Units 15:00 15:00 15:00 WBC 11.1 H (4.0-10.0) 10^3/ uL RBC 4.95 (4.1-5.3) 10^6/u L Hgb 14.0 (11.7-16.6) g/dL Hct 44.5 (42.0-52.0) % MCV 89.9 (80-94) fL MCH 28.3 (28.0-34.0) pg MCHC 31.5 (30.0-36.0) g/dL RDW 14.4 (12.1-15.1) % Plt Count 183 (130-400) 10^3/c mm MPV 11.4 H (7.4-10.4) fL Neut % (Auto) 85.3 % Lymph % (Auto) 6.3 % [place] % (Auto) 7.5 % Eos % (Auto) 0.0 % Baso % (Auto) 0.1 % Neut # (Auto) 9.42 H (1.8-7.7) 10^3/u L Lymph # (Auto) 0.7 L (0.8-4.8) 10^3/u L [place] # (Auto) 0.8 (0.2-0.9) 10^3/u L Eos # (Auto) 0.0 (0.0-0.8) 10^3/u L Baso # (Auto) 0.0 (0.0-0.1) 10^3/u L Nucleated RBC % (a uto) 0.5 % Nucleated RBCs # 0.1 /100WBC PT 20.10 H (12.1-14.9) SECO NDS INR 1.65 H (0.8-1.2) D-Dimer 2.84 H (0-0.59) ug/mIFE U Specimen Type Sample Site ABG pH (7.35-7.45) ABG pCO2 (35-45) mmHg ABG pO2 (80.0-100.0) mmH g ABG HCO3 (22-26) mmol/L ABG Base Excess (-2.0-2.0) mmol/ L [place] Test Hematocrit (42-52) % Hgb O2 Saturation (95-100) % Carboxyhemoglobin (0.4-20.1) %THgb Methemoglobin (0.4-1.5) % Total Hemoglobin (14-18) g/dL O2 Delivery Device FiO2 % PEEP cmH20 Fire Support Man ID Sodium 125 L (136-145) mmol/L Potassium 4.6 (3.5-5.1) mmol/L Chloride 77 L (98-107) mmol/L Carbon Dioxide 32 H (22-29) mmol/L Anion Gap 20.6 H (5-19) BUN 136 H* D (8-23) mg/dL Creatinine 3.0 H (0.7-1.2) mg/dL GFR Calculation 20.9 L (90-130) mL/min Glucose 149 H (65-115) mg/dL Calculated Osmolal ity 307 H (285-295) mOsm/k g Lactate (0.5-2.2) mmol/L Calcium 8.2 L (8.5-10.5) mg/dL Total Bilirubin 1.8 H (0.15-1.2) mg/dL AST 76 H (0-40) U/L ALT 397 H (0-41) U/L Alkaline Phosphata se 186 H (40-130) IU/L Creatine Kinase Troponin T Baselin e (0-15) ng/L Troponin T 120 Min [place] (0-15) ng/L Delta Troponin T (0-10) ABS# NT-Pro-B Natriuret Pep 36820 H (0-125) pg/mL Total Protein 6.5 L (6.6-8.7) g/dL Albumin 3.5 (3.5-5.2) g/dL Globulin 3.0 (1.3-4.6) g/dL Procalcitonin (0-0.5) ng/mL Urine Color (Yellow) Urine Appearance (CLEAR) Urine pH (5-7) Ur Specific Gravit y (1.005-1.030) Urine Protein (Negative) Urine Glucose (UA) (Normal) Urine Ketones (Negative) Urine Blood (Negative) Urine Nitrate (Negative) Urine Bilirubin (Negative) Urine Urobilinogen (Negative) mg/dL Ur Leukocyte Isabel ase (Negative) Urine RBC (0-2) /hpf Urine WBC (0-5) /hpf Ur Squamous Epith Cells (0-5) /hpf Amorphous Sediment /hpf Urine Bacteria (NONE) /hpf Hyaline Casts /lpf Ethyl Alcohol < 10 (0-10) mg/dL Influenza Type A A g (Negative) Influenza Type B A g (Negative) SARS-CoV-2 Ag (Rap id) (Negative) 07/05/20 07/05/20 07/05/20 Range/Units 15:00 15:00 15:00 WBC (4.0-10.0) 10^3/ uL RBC (4.1-5.3) 10^6/u L Hgb (11.7-16.6) g/dL Hct (42.0-52.0) % MCV (80-94) fL MCH (28.0-34.0) pg MCHC (30.0-36.0) g/dL RDW (12.1-15.1) % Plt Count (130-400) 10^3/c mm MPV (7.4-10.4) fL Neut % (Auto) % Lymph % (Auto) % [place] % (Auto) % Eos % (Auto) % Baso % (Auto) % Neut # (Auto) (1.8-7.7) 10^3/u L Lymph # (Auto) (0.8-4.8) 10^3/u L [place] # (Auto) (0.2-0.9) 10^3/u L Eos # (Auto) (0.0-0.8) 10^3/u L Baso # (Auto) (0.0-0.1) 10^3/u L Nucleated RBC % (a uto) % Nucleated RBCs # /100WBC PT (12.1-14.9) SECO NDS INR (0.8-1.2) D-Dimer (0-0.59) ug/mIFE U Specimen Type Sample Site ABG pH (7.35-7.45) ABG pCO2 (35-45) mmHg ABG pO2 (80.0-100.0) mmH g ABG HCO3 (22-26) mmol/L ABG Base Excess (-2.0-2.0) mmol/ L [place] Test Hematocrit (42-52) % Hgb O2 Saturation (95-100) % Carboxyhemoglobin (0.4-20.1) %THgb Methemoglobin (0.4-1.5) % Total Hemoglobin (14-18) g/dL O2 Delivery Device FiO2 % PEEP cmH20 Fire Support Man ID Sodium (136-145) mmol/L Potassium (3.5-5.1) mmol/L Chloride (98-107) mmol/L Carbon Dioxide (22-29) mmol/L Anion Gap (5-19) BUN (8-23) mg/dL Creatinine (0.7-1.2) mg/dL GFR Calculation (90-130) mL/min Glucose (65-115) mg/dL Calculated Osmolal ity (285-295) mOsm/k g Lactate 2.0 (0.5-2.2) mmol/L Calcium (8.5-10.5) mg/dL Total Bilirubin (0.15-1.2) mg/dL AST (0-40) U/L ALT (0-41) U/L Alkaline Phosphata se (40-130) IU/L Creatine Kinase Troponin T Baselin e 474 H* (0-15) ng/L Troponin T 120 Min [place] (0-15) ng/L Delta Troponin T (0-10) ABS# NT-Pro-B Natriuret Pep (0-125) pg/mL Total Protein (6.6-8.7) g/dL Albumin (3.5-5.2) g/dL Globulin (1.3-4.6) g/dL Procalcitonin (0-0.5) ng/mL Urine Color Dark yellow (Yellow) Urine Appearance Hazy A (CLEAR) Urine pH 5 (5-7) Ur Specific Gravit y 1.020 (1.005-1.030) Urine Protein Neg (Negative) Urine Glucose (UA) Norm (Normal) Urine Ketones Negative (Negative) Urine Blood 2+ H (Negative) Urine Nitrate Negative (Negative) Urine Bilirubin 1+ H (Negative) Urine Urobilinogen 4 H (Negative) mg/dL Ur Leukocyte Isabel ase Negative (Negative) Urine RBC 0-4 H (0-2) /hpf Urine WBC 0-4 H (0-5) /hpf Ur Squamous Epith Cells 0-4 H (0-5) /hpf Amorphous Sediment 1+ /hpf Urine Bacteria Trace (NONE) /hpf Hyaline Casts 15-25 H /lpf Ethyl Alcohol (0-10) mg/dL Influenza Type A A g (Negative) Influenza Type B A g (Negative) SARS-CoV-2 Ag (Rap id) (Negative) 07/05/20 07/05/20 07/05/20 Range/Units 15:00 15:00 15:20 WBC (4.0-10.0) 10^3/ uL RBC (4.1-5.3) 10^6/u L Hgb (11.7-16.6) g/dL Hct (42.0-52.0) % MCV (80-94) fL MCH (28.0-34.0) pg MCHC (30.0-36.0) g/dL RDW (12.1-15.1) % Plt Count (130-400) 10^3/c mm MPV (7.4-10.4) fL Neut % (Auto) % Lymph % (Auto) % [place] % (Auto) % Eos % (Auto) % Baso % (Auto) % Neut # (Auto) (1.8-7.7) 10^3/u L Lymph # (Auto) (0.8-4.8) 10^3/u L [place] # (Auto) (0.2-0.9) 10^3/u L Eos # (Auto) (0.0-0.8) 10^3/u L Baso # (Auto) (0.0-0.1) 10^3/u L Nucleated RBC % (a uto) % Nucleated RBCs # /100WBC PT (12.1-14.9) SECO NDS INR (0.8-1.2) D-Dimer (0-0.59) ug/mIFE U Specimen Type Sample Site ABG pH (7.35-7.45) ABG pCO2 (35-45) mmHg ABG pO2 (80.0-100.0) mmH g ABG HCO3 (22-26) mmol/L ABG Base Excess (-2.0-2.0) mmol/ L [place] Test Hematocrit (42-52) % Hgb O2 Saturation (95-100) % Carboxyhemoglobin (0.4-20.1) %THgb Methemoglobin (0.4-1.5) % Total Hemoglobin (14-18) g/dL O2 Delivery Device FiO2 % PEEP cmH20 Fire Support Man ID Sodium (136-145) mmol/L Potassium (3.5-5.1) mmol/L Chloride (98-107) mmol/L Carbon Dioxide (22-29) mmol/L Anion Gap (5-19) BUN (8-23) mg/dL Creatinine (0.7-1.2) mg/dL GFR Calculation (90-130) mL/min Glucose (65-115) mg/dL Calculated Osmolal ity (285-295) mOsm/k g Lactate (0.5-2.2) mmol/L Calcium (8.5-10.5) mg/dL Total Bilirubin (0.15-1.2) mg/dL AST (0-40) U/L ALT (0-41) U/L Alkaline Phosphata se (40-130) IU/L Creatine Kinase Cancelled 832 H* Troponin T Baselin e (0-15) ng/L Troponin T 120 Min [place] (0-15) ng/L Delta Troponin T (0-10) ABS# NT-Pro-B Natriuret Pep (0-125) pg/mL Total Protein (6.6-8.7) g/dL Albumin (3.5-5.2) g/dL Globulin (1.3-4.6) g/dL Procalcitonin 0.34 (0-0.5) ng/mL Urine Color (Yellow) Urine Appearance (CLEAR) Urine pH (5-7) Ur Specific Gravit y (1.005-1.030) Urine Protein (Negative) Urine Glucose (UA) (Normal) Urine Ketones (Negative) Urine Blood (Negative) Urine Nitrate (Negative) Urine Bilirubin (Negative) Urine Urobilinogen (Negative) mg/dL Ur Leukocyte Isabel ase (Negative) Urine RBC (0-2) /hpf Urine WBC (0-5) /hpf Ur Squamous Epith Cells (0-5) /hpf Amorphous Sediment /hpf Urine Bacteria (NONE) /hpf Hyaline Casts /lpf Ethyl Alcohol (0-10) mg/dL Influenza Type A A g Negative (Negative) Influenza Type B A g Negative (Negative) SARS-CoV-2 Ag (Rap id) (Negative) 07/05/20 07/05/20 07/05/20 Range/Units 15:20 15:32 17:15 WBC (4.0-10.0) 10^3/ uL RBC (4.1-5.3) 10^6/u L Hgb (11.7-16.6) g/dL Hct (42.0-52.0) % MCV (80-94) fL MCH (28.0-34.0) pg MCHC (30.0-36.0) g/dL RDW (12.1-15.1) % Plt Count (130-400) 10^3/c mm MPV (7.4-10.4) fL Neut % (Auto) % Lymph % (Auto) % [place] % (Auto) % Eos % (Auto) % Baso % (Auto) % Neut # (Auto) (1.8-7.7) 10^3/u L Lymph # (Auto) (0.8-4.8) 10^3/u L [place] # (Auto) (0.2-0.9) 10^3/u L Eos # (Auto) (0.0-0.8) 10^3/u L Baso # (Auto) (0.0-0.1) 10^3/u L Nucleated RBC % (a uto) % Nucleated RBCs # /100WBC PT (12.1-14.9) SECO NDS INR (0.8-1.2) D-Dimer (0-0.59) ug/mIFE U Specimen Type Arterial Sample Site Brachial, right ABG pH 7.33 L (7.35-7.45) ABG pCO2 72.8 H* (35-45) mmHg ABG pO2 89.6 (80.0-100.0) mmH g ABG HCO3 37.9 H (22-26) mmol/L ABG Base Excess 8.8 H (-2.0-2.0) mmol/ L [place] Test Pos Hematocrit 43.9 (42-52) % Hgb O2 Saturation 91.2 L (95-100) % Carboxyhemoglobin 4.6 (0.4-20.1) %THgb Methemoglobin 0.8 (0.4-1.5) % Total Hemoglobin 14.3 (14-18) g/dL O2 Delivery Device Bipap FiO2 40.0 % PEEP 10.0 cmH20 Fire Support Man ID Bd Sodium (136-145) mmol/L Potassium (3.5-5.1) mmol/L Chloride (98-107) mmol/L Carbon Dioxide (22-29) mmol/L Anion Gap (5-19) BUN (8-23) mg/dL Creatinine (0.7-1.2) mg/dL GFR Calculation (90-130) mL/min Glucose (65-115) mg/dL Calculated Osmolal ity (285-295) mOsm/k g Lactate (0.5-2.2) mmol/L Calcium (8.5-10.5) mg/dL Total Bilirubin (0.15-1.2) mg/dL AST (0-40) U/L ALT (0-41) U/L Alkaline Phosphata se (40-130) IU/L Creatine Kinase Troponin T Baselin e (0-15) ng/L Troponin T 120 Min [place] 480.6 H (0-15) ng/L Delta Troponin T 6.6 (0-10) ABS# NT-Pro-B Natriuret Pep (0-125) pg/mL Total Protein (6.6-8.7) g/dL Albumin (3.5-5.2) g/dL Globulin (1.3-4.6) g/dL Procalcitonin (0-0.5) ng/mL Urine Color (Yellow) Urine Appearance (CLEAR) Urine pH (5-7) Ur Specific Gravit y (1.005-1.030) Urine Protein (Negative) Urine Glucose (UA) (Normal) Urine Ketones (Negative) Urine Blood (Negative) Urine Nitrate (Negative) Urine Bilirubin (Negative) Urine Urobilinogen (Negative) mg/dL Ur Leukocyte Isabel ase (Negative) Urine RBC (0-2) /hpf Urine WBC (0-5) /hpf Ur Squamous Epith Cells (0-5) /hpf Amorphous Sediment /hpf Urine Bacteria (NONE) /hpf Hyaline Casts /lpf Ethyl Alcohol (0-10) mg/dL Influenza Type A A g (Negative) Influenza Type B A g (Negative) SARS-CoV-2 Ag (Rap id) Negative (Negative) Critical Care Time Critical Care Time: Critical Care Time: Yes Total Critical Care Time: 120 Attestation: Patient in severe respiratory distress and decompensated as well as developed severe hypotension during the process. He was sedated and intubated and drips were managed as well as admitted to the ICU. Approximate time of critical care 2 hours Discharge Plan Discharge Patient Disposition: Admitted As Inpatient Admit Provider: Oliverio Malagon Coding Level of Care Code ED Environmental Adviser for g Fwd Exam Comprehensive
--- NOTE | 2020-07-05 17:45 | PC.NURSE ---
EKG done at 1745 and shown to ER doctor
[2020-07-05 17:55] LABS: Troponin 5 2HR Delta 6.6 ABS# (0-10)
--- NOTE | 2020-07-05 18:09 | PM.HP ---
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 History was obtained from review of records and discussion with ER staff. Patient was apparently found to have oxygen saturation in mid 70s with increasing o2 requirement. Upon arrival to ER he was placed on BiPAP. Initial laboratory work up showed a WBC of 11.1, hemoglobin of 14.0, hematocrit 44.5 and platelet count of 183. Sodium 125, potassium 4.6, chloride 77, bicarb 32, BUN 136 and creatinine of 3.0. Lactic acid of 2.0. AST of 76, ALT of 397 and alkaline phosphatase of 186. Troponin T 474 - > 480.6, Delta troponin T of 6.6. ProBNP of 20,006. INR of 1.65, D-dimer of 2.84. Initial ABG on BiPAP of 7.33, PCO2 of 72.8, Po2 of 89.6, bicarb of 37.9. Patient was not tolerating Bipap due to agitation. He was subsequently intubated on placed on mechanical ventilation. Was noted to have hypotension as well after sedative medications for which he was started on Levophed. He was placed on versed and fentanyl for sedation. Imaging studies included a chest x-ray which showed cardiomegaly, pulmonary vascularity appeared normal with no evidence of pneumothorax or infiltrates. Head CT was also ordered and pending at the time of my eval. In addition to above patient was also given Lasix 40 mg IV x 1 and Levaquin 750 mg IV x 1. Review of Systems General: Reports: ROS unobtainable due to medical condition Medications/Allergies Home Medications Medication Instructions Recorded Confirmed Last Taken Type albuterol sulfate 2.5 mg INHALATION QID PRN 06/21/19 07/05/20 08/23/19 History butenafine 1 % topical cream 1 applic TOPICAL BID PRN 06/21/19 07/05/20 08/23/19 History cyclosporine 0.05 % eye drops 1 drop OPHTHALMIC (EYE) Q12H 06/21/19 07/05/20 08/23/19 History epinephrine 0.3 mg/0.3 mL 0.3 mg IM ONCE 06/21/19 07/05/20 Unknown History injection, auto-injector fluticasone propionate 50 2 spray INTRANASAL BID ml 06/21/19 07/05/20 08/23/19 History mcg/actuation nasal spray,suspension budesonide 0.5 mg/2 mL suspension 0.5 mg INHALATION BID 90 Days #360 09/12/19 07/05/20 Unknown Rx for nebulization ml prochlorperazine maleate 5 mg 5 mg PO QID PRN 12/15/19 07/05/20 Unknown History tablet mupirocin 2 % topical ointment 1 applic TOPICAL BID #22 gm 01/18/20 07/05/20 Unknown Rx walker with seat /wheels #1 ea 01/20/20 07/05/20 Unknown Rx montelukast 10 mg tablet 10 mg PO DAILY #30 tab 01/23/20 07/05/20 Unknown Rx carbamide peroxide 6.5 % ear drops 10 drop EAR-BOTH DAILY 4 Days #30 02/16/20 07/05/20 Unknown Rx ml ipratropium 0.5 mg-albuterol 3 mg See Rx Instructions .ROUTE 02/21/20 07/05/20 Unknown Rx (2.5 mg base)/3 mL nebulization .COMPLEX #360 ml soln cetirizine 10 mg tablet 10 mg PO DAILY PRN 30 Days #30 tab 02/29/20 07/05/20 Unknown Rx albuterol sulfate 90 mcg/actuation See Rx Instructions .ROUTE 03/26/20 07/05/20 Unknown Rx aerosol inhaler .COMPLEX #8.5 gm furosemide 20 mg tablet 40 mg PO DAILY PRN #60 tab 04/03/20 07/05/20 Unknown Rx fluconazole 100 mg tablet 100 mg PO DAILY 04/04/20 07/05/20 Unknown History magnesium L-lactate 84 mg See Rx Instructions .ROUTE 04/13/20 07/05/20 Unknown Rx tablet,extended release .COMPLEX #30 tab potassium chloride 20 mEq See Rx Instructions .ROUTE 04/13/20 07/05/20 Unknown Rx tablet,extended release .COMPLEX #30 tab citalopram 20 mg tablet 20 mg PO DAILY 30 Days #30 tab 05/08/20 07/05/20 Unknown Rx metolazone 2.5 mg tablet See Rx Instructions .ROUTE 05/08/20 07/05/20 Unknown Rx .COMPLEX #30 tab azithromycin 500 mg tablet 500 mg PO .QOD 30 Days #15 tab 05/15/20 07/05/20 Unknown Rx levofloxacin 750 mg tablet 750 mg PO DAILY 5 Days #5 tab 05/15/20 07/05/20 Unknown Rx finasteride 5 mg tablet 5 mg PO DAILY 30 Days #30 tab 05/23/20 07/05/20 Unknown Rx promethazine 25 mg tablet 25 mg PO Q6H PRN #14 tab 05/30/20 07/05/20 Unknown Rx diazepam 10 mg tablet 10 mg PO DAILY PRN 60 Days #60 tab 06/05/20 07/05/20 Unknown Rx prednisone 5 mg tablet 5 mg PO DAILY #30 tab 06/20/20 07/05/20 Unknown Rx lidocaine HCl 2 % mucosal solution See Rx Instructions .ROUTE 06/28/20 07/05/20 Unknown Rx .COMPLEX #100 ml nystatin 100,000 unit/mL oral 5 ml PO QID 30 Days #600 ml 06/28/20 07/05/20 Unknown Rx suspension pantoprazole 40 mg tablet,delayed 40 mg PO DAILY 30 Days #30 tab 06/28/20 07/05/20 Unknown Rx release sucralfate 100 mg/mL oral 10 ml PO QID 30 Days #1200 ml 06/28/20 07/05/20 Unknown Rx suspension azelastine 1 - 2 spray INTRANASAL BID 07/05/20 07/05/20 Unknown History carbamazepine 100 mg PO DAILY 07/05/20 07/05/20 Unknown History morphine 30 mg PO TID PRN 07/05/20 07/05/20 Unknown History ondansetron HCl 8 mg PO BID PRN 07/05/20 07/05/20 Unknown History oxycodone [OxyContin] 60 mg PO Q12H 07/05/20 07/05/20 Unknown History Allergies Allergy/AdvReac Type Severity Reaction Status Date / Time methadone Allergy Severe ALGY-Swell Verified 06/05/20 14:55 Lip/Tongue/Throat bee venom protein (honey bee) Allergy ALGY-Anaphy Verified 06/05/20 14:55 laxis Penicillins Allergy Unknown Verified 06/05/20 14:55 fentanyl AdvReac ADR-Shakine Verified 06/05/20 14:55 ss gabapentin [From Neurontin] AdvReac Unknown Verified 06/05/20 14:55 PFSH Acute PFSH: Medical History (Updated 07/05/20 @ 19:29 by Oliverio Malagon MD) Acquired bilateral hammer toes Acute diverticulitis Bee sting allergy Bilateral bunions Bulging lumbar disc Chronic bilateral low back pain Chronic erythematous candidosis Chronic low back pain Chronic nausea Chronic respiratory failure with hypoxia COPD (chronic obstructive pulmonary disease) Degenerative disc disease Dysphagia, unspecified Emphysema, unspecified GERD (gastroesophageal reflux disease) History of colon cancer Hypersomnia Lesion of true vocal cord Lower extremity edema Mixed hyperlipidemia Nicotine dependence, cigarettes, uncomplicated Nocturia Onychomycosis MANISH (obstructive sleep apnea) Other specified joint disorders, right shoulder PAD (peripheral artery disease) Polyneuropathy, unspecified Sebaceous cyst of scrotum Segmental and somatic dysfunction of rib cage Blanco-Isaac syndrome Vasomotor rhinitis Venous reflux Surgical History H/O foot surgery H/O hernia repair History of back surgery History of cholecystectomy History of esophagogastroduodenoscopy (EGD) History of partial colectomy Family History Mother , Age 73 Hodgkin disease Cancer Father , Age 67 Stroke Social History Smoking and tobacco status: former smoker Quit status (tobacco): has quit using tobacco Year quit tobacco: 2019 - 1PPD x 50 Years Former quit date comment: Smokes non-nicotine vape Alcohol intake: never Desire information about alcohol rehabilitation?: No Counseling given: No Desire information about substance/drug rehabilitation?: No Counseling given: No Lives independently: Yes Household members: spouse Marital status: Highest education level completed: Some College, No Degree service: No Current occupational status: retired History of recent travel: No Current gender identity: Male Vitals/I&O/Wt Last Vital Signs Temp 97.4 F L 07/05/20 14:37 Pulse 62 07/05/20 18:03 Resp 18 07/05/20 18:03 BP 87/59 07/05/20 18:03 Pulse Ox 94 07/05/20 18:03 07/05/20 07/05/20 07/05/20 06:59 14:59 22:59 Intake Total 3.908 / 3.908 Balance 3.908 / 3.908 Weight last 48 hrs Weight 122.47 kg Physical Exam Narrative: EXAM NARRATIVE: General : Intubated on MV HEENT - ET tube at 22 Chest - vented sounds CVS : Distant heart sounds ABD ; Non-distended Ext : Bilateral LE with chronic wound, dependent rubra L>R Neuro: unable to assess Urinary Catheter Management^: [place]: Cath Placed During This Visit: yes Reason for Continuing Indwelling Catheter: Other Urinary Catheter Date of Insertion: 07/05/20 Urinary Catheter Time of Insertion: 15:50 Data : 07/05/20 15:00 07/05/20 15:00 Micro: Microbiology 07/05/20 15:10 Blood Culture - Preliminary Blood SPECIMEN COLLECTED 07/05/20 15:00 Blood Culture - Preliminary Blood SPECIMEN COLLECTED A&P Assessment and plan (1) Acute respiratory failure with hypoxia and hypercapnia: Status: Acute (2) Acute renal failure: Status: Acute (3) Cellulitis: Status: Acute (4) Chronic respiratory failure: Status: Acute (5) PAD (peripheral artery disease): Status: Acute (6) Mixed hyperlipidemia: Status: Acute (7) Lesion of true vocal cord: Status: Acute (8) Chronic bilateral low back pain: Status: Chronic Qualifiers: Sciatica presence: with sciatica Sciatica laterality: bilateral sciatica Qualified Code(s): M54.42 - Lumbago with sciatica, left side; M54.41 - Lumbago with sciatica, right side; G89.29 - Other chronic pain (9) Lower extremity edema: Status: Chronic (10) Transaminitis: Status: Acute (11) COPD (chronic obstructive pulmonary disease): Status: Chronic Qualifiers: COPD type: unspecified COPD Qualified Code(s): J44.9 - Chronic obstructive pulmonary disease, unspecified (12) Hyponatremia: Status: Acute Acute on chronic hypoxemic hypercapnia respiratory failure 02/Steroid dependent COPD exacerbation Sepsis suspected due to left lower extremity cellulitis Acute unspecified HF exacerbation Non-ST elevation AK Acute renal failure / Hyponatrremia Elevated D-Dimer Elevated LFTs Vocal cord malignancy s/p Chemo-radiation Hx of Colon cancer s/p p.colectomy Obstructive sleep apnea Peripheral arterial disease Polyneuropathy Gasteroesophageal reflux disease disease DVT pox Plan: Intubated / Mechanical ventilation Follow up on post intubation ABG Elevated d-dimer Start on heparin get Bronchodilator tx Pulmicort 0.5 mg Inh BID Will consider adding solumedrol Rapid COVID negative PCR ordered pending Repeat chest x-ray and abg in am Consider pulmonary consult Consider adding IV steroids No evidence of pneumonia Suspected fluid overload s/p Lasix 40 mg IV x 1 in ER Will hold further diuresis Ventura inserted Consult Nephrology Renal dose meds Renal US in am Broad spectrum abx Chronic immunosuppression - Vancomycin pharmacy to dose - Primixin 500 mg IV q6r Follow upon blood culture x 2 Sputum culture Check Procalcitonin Follow up on 6hr troponin No sig uptrend possibly related to sepsis/renal failure ECHO ordered - pending Hold on further diuresis Cardiology consulted Trend LFTs Hepatitis panel Abd imaging if worsening Repeat CBC/CMP/ABG/Lactic acid/ procalcitonin/troponin/TSH in AM Attestations Medical Necessity Statement*: Patient require over 2 midnight stay in hospital for evaluation and treatment of hypoxic respiratory failure requiring mechanical ventilation, elevated troponin, acute renal insufficiency, sepsis and elevated troponins. Time Spent in Patient Care: Greater than 35 minutes (>than 50% of time spent in counselling and/or direct pt care on unit). Coding Level of Care Code Acute Customer Service Technician for Chg Fwd Diagnoses Acute respiratory failure with hypoxia and hypercapnia J96.01; J96.02 Acute renal failure N17.9 Cellulitis L03.90 Chronic respiratory failure J96.10 PAD (peripheral artery disease) I73.9 Mixed hyperlipidemia E78.2 Lesion of true vocal cord J38.3 Chronic bilateral low back pain M54.42; M54.41; G89.29 Sciatica presence: with sciatica Sciatica laterality: bilateral sciatica Lower extremity edema R60.0 Transaminitis R74.01 COPD (chronic obstructive pulmonary disease) J44.9 COPD type: unspecified COPD Hyponatremia E87.1
[2020-07-05 18:12] LABS: Troponin 5 2HR 480.6 ng/L (0-15)
--- NOTE | 2020-07-05 18:13 | PC.NURSE ---
ICU called to give report. No report able to be given at this time due to nurse being busy. Will attempt to call report again in a bit.
[2020-07-05] MEDS: heparin 5,000 unit/mL INJ 1 mL 5000 UNIT SUBCUT (18:24)
[2020-07-05] MEDS: famotidine 20 mg/2 mL INJ IVP (18:24)
--- NOTE | 2020-07-05 20:05 | PM.CONSULT ---
Providers/Reason For Consult Consulting Physican/Specialty*: Sienna Gan DO, telenephrology Reason for Consult*: Acute Kidney Injury Attending Physician: Oliverio Malagon History of Present Illness History of Present Illness Jaime Olivares is a 70 year old male presented with respiratory distress, intubated. Review of Systems General: Reports: ROS unobtainable due to endotracheal tube Meds/Allergies Home Medications and Allergies Home Medications Medication Instructions Recorded Confirmed Last Taken Type albuterol sulfate 2.5 mg INHALATION QID PRN 06/21/19 07/05/20 08/23/19 History butenafine 1 % topical cream 1 applic TOPICAL BID PRN 06/21/19 07/05/20 08/23/19 History cyclosporine 0.05 % eye drops 1 drop OPHTHALMIC (EYE) Q12H 06/21/19 07/05/20 08/23/19 History epinephrine 0.3 mg/0.3 mL 0.3 mg IM ONCE 06/21/19 07/05/20 Unknown History injection, auto-injector fluticasone propionate 50 2 spray INTRANASAL BID ml 06/21/19 07/05/20 08/23/19 History mcg/actuation nasal spray,suspension budesonide 0.5 mg/2 mL suspension 0.5 mg INHALATION BID 90 Days #360 09/12/19 07/05/20 Unknown Rx for nebulization ml prochlorperazine maleate 5 mg 5 mg PO QID PRN 12/15/19 07/05/20 Unknown History tablet mupirocin 2 % topical ointment 1 applic TOPICAL BID #22 gm 01/18/20 07/05/20 Unknown Rx walker with seat /wheels #1 ea 01/20/20 07/05/20 Unknown Rx montelukast 10 mg tablet 10 mg PO DAILY #30 tab 01/23/20 07/05/20 Unknown Rx carbamide peroxide 6.5 % ear drops 10 drop EAR-BOTH DAILY 4 Days #30 02/16/20 07/05/20 Unknown Rx ml ipratropium 0.5 mg-albuterol 3 mg See Rx Instructions .ROUTE 02/21/20 07/05/20 Unknown Rx (2.5 mg base)/3 mL nebulization .COMPLEX #360 ml soln cetirizine 10 mg tablet 10 mg PO DAILY PRN 30 Days #30 tab 02/29/20 07/05/20 Unknown Rx albuterol sulfate 90 mcg/actuation See Rx Instructions .ROUTE 03/26/20 07/05/20 Unknown Rx aerosol inhaler .COMPLEX #8.5 gm furosemide 20 mg tablet 40 mg PO DAILY PRN #60 tab 04/03/20 07/05/20 Unknown Rx fluconazole 100 mg tablet 100 mg PO DAILY 04/04/20 07/05/20 Unknown History magnesium L-lactate 84 mg See Rx Instructions .ROUTE 04/13/20 07/05/20 Unknown Rx tablet,extended release .COMPLEX #30 tab potassium chloride 20 mEq See Rx Instructions .ROUTE 04/13/20 07/05/20 Unknown Rx tablet,extended release .COMPLEX #30 tab citalopram 20 mg tablet 20 mg PO DAILY 30 Days #30 tab 05/08/20 07/05/20 Unknown Rx metolazone 2.5 mg tablet See Rx Instructions .ROUTE 05/08/20 07/05/20 Unknown Rx .COMPLEX #30 tab azithromycin 500 mg tablet 500 mg PO .QOD 30 Days #15 tab 05/15/20 07/05/20 Unknown Rx levofloxacin 750 mg tablet 750 mg PO DAILY 5 Days #5 tab 05/15/20 07/05/20 Unknown Rx finasteride 5 mg tablet 5 mg PO DAILY 30 Days #30 tab 05/23/20 07/05/20 Unknown Rx promethazine 25 mg tablet 25 mg PO Q6H PRN #14 tab 05/30/20 07/05/20 Unknown Rx diazepam 10 mg tablet 10 mg PO DAILY PRN 60 Days #60 tab 06/05/20 07/05/20 Unknown Rx prednisone 5 mg tablet 5 mg PO DAILY #30 tab 06/20/20 07/05/20 Unknown Rx lidocaine HCl 2 % mucosal solution See Rx Instructions .ROUTE 06/28/20 07/05/20 Unknown Rx .COMPLEX #100 ml nystatin 100,000 unit/mL oral 5 ml PO QID 30 Days #600 ml 06/28/20 07/05/20 Unknown Rx suspension pantoprazole 40 mg tablet,delayed 40 mg PO DAILY 30 Days #30 tab 06/28/20 07/05/20 Unknown Rx release sucralfate 100 mg/mL oral 10 ml PO QID 30 Days #1200 ml 06/28/20 07/05/20 Unknown Rx suspension azelastine 1 - 2 spray INTRANASAL BID 07/05/20 07/05/20 Unknown History carbamazepine 100 mg PO DAILY 07/05/20 07/05/20 Unknown History morphine 30 mg PO TID PRN 07/05/20 07/05/20 Unknown History ondansetron HCl 8 mg PO BID PRN 07/05/20 07/05/20 Unknown History oxycodone [OxyContin] 60 mg PO Q12H 07/05/20 07/05/20 Unknown History Allergies Allergy/AdvReac Type Severity Reaction Status Date / Time methadone Allergy Severe ALGY-Swell Verified 06/05/20 14:55 Lip/Tongue/Throat bee venom protein (honey bee) Allergy ALGY-Anaphy Verified 06/05/20 14:55 laxis Penicillins Allergy Unknown Verified 06/05/20 14:55 fentanyl AdvReac ADR-Shakine Verified 06/05/20 14:55 ss gabapentin [From Neurontin] AdvReac Unknown Verified 06/05/20 14:55 Current Medications Current Medications Generic Name Dose Route Start Last Admin Trade Name Freq PRN Reason Stop Dose Admin Famotidine 20 mg 07/05/20 18:00 07/05/20 18:24 Famotidine 20 Mg/2 Ml Inj IVP 20 mg Q12H VIMAL Administration Midazolam HCl 100 mg/ Sodium 100 mls @ 0 mls/hr 07/05/20 16:30 07/05/20 18:03 Chloride IV 6 mg/hr .Q0M VIMAL 6 mls/hr Titration Protocol Per Protocol Fentanyl 1,000 mcg/ Sodium 100 mls @ 0 mls/hr 07/05/20 16:30 07/05/20 17:27 Chloride IV 50 mcg/hr .Q0M VIMAL 5 mls/hr Titration Protocol Per Protocol Norepinephrine Bitartrate 4 mg 254 mls @ 0 mls/hr 07/05/20 16:45 07/05/20 16:48 / Dextrose IV 2 mcg/min .Q0M VIMAL 7.6 mls/hr Administration Protocol Per Protocol Imipenem/Cilastatin Sodium 250 100 mls @ 200 mls/hr 07/05/20 20:00 07/05/20 20:04 mg/ Sodium Chloride IV 200 mls/hr Q6H VIMAL Administration Protocol PFSH Acute PFSH: Medical History Acquired bilateral hammer toes Acute diverticulitis Bee sting allergy Bilateral bunions Bulging lumbar disc Chronic bilateral low back pain Chronic erythematous candidosis Chronic low back pain Chronic nausea Chronic respiratory failure with hypoxia COPD (chronic obstructive pulmonary disease) Degenerative disc disease Dysphagia, unspecified Emphysema, unspecified GERD (gastroesophageal reflux disease) History of colon cancer Hypersomnia Lesion of true vocal cord Lower extremity edema Mixed hyperlipidemia Nicotine dependence, cigarettes, uncomplicated Nocturia Onychomycosis MANISH (obstructive sleep apnea) Other specified joint disorders, right shoulder PAD (peripheral artery disease) Polyneuropathy, unspecified Sebaceous cyst of scrotum Segmental and somatic dysfunction of rib cage Blanco-Isaac syndrome Vasomotor rhinitis Venous reflux Surgical History H/O foot surgery H/O hernia repair History of back surgery History of cholecystectomy History of esophagogastroduodenoscopy (EGD) History of partial colectomy Family History Mother , Age 73 Hodgkin disease Cancer Father , Age 67 Stroke Social History Smoking and tobacco status: former smoker Quit status (tobacco): has quit using tobacco Year quit tobacco: 2020 - 1PPD x 50 Years Former quit date comment: Smokes non-nicotine vape Alcohol intake: never Desire information about alcohol rehabilitation?: No Counseling given: No Desire information about substance/drug rehabilitation?: No Counseling given: No Lives independently: Yes Household members: spouse Marital status: Highest education level completed: Some College, No Degree service: No Current occupational status: retired History of recent travel: No Current gender identity: Male Vitals/I&O/Wt Last Vital Signs Temp 97.4 F L 07/05/20 14:37 Pulse 57 L 07/05/20 18:41 Resp 17 07/05/20 18:41 BP 102/72 07/05/20 18:41 Pulse Ox 96 07/05/20 18:41 07/05/20 07/05/20 07/05/20 06:59 14:59 22:59 Intake Total 153.908 / 153.908 Balance 153.908 / 153.908 Weight last 48 hrs Weight 122.47 kg Physical Exam Extremity: GENERAL: Yes edema Urinary Catheter Management^: [place]ru[place]: Cath Placed During This Visit: yes Reason for Continuing Indwelling Catheter: Other Urinary Catheter Date of Insertion: 07/05/20 Urinary Catheter Time of Insertion: 15:50 Data Labs: Other Labs: BNP 20,066 bilirubin 1.8, ALT 397, AST 76 calcium 8.2 7.33/72.8/89.6 BiPAP 405, +10 peep Micro: Micro: Microbiology 07/05/20 15:10 Blood Culture - Pr eliminary Blood SPECIMEN [facility] 07/05/20 15:00 Blood Culture - Pr eliminary Blood SPECIMEN [facility] Imaging^: CXR: Radiologist's impression: cardiomegaly, no infiltrates A&P Additional A&P Information 1. Acute kidney injury, possibly due to volume depletion (furosemide and metalozone). Baseline serum Cr 0.9 mg/dL Jan 2020. Pruitt in, urine output 700 ml 2. Hypovolemic hyponatremia 3. Acute hypercarbic respiratory failure, history of O2 dependent COPD 4. Liver function test abnormalities Rec: IVF hydration with NSS, pruitt, renal ultrasound, urine lytes, CK Consult Attestations Medical Necessity Statement: criticlly ill in ICU Time Spent in Patient Care: 16 - 35 minutes Coding Level of Care Code Acute Learning Design Specialist for Seymour Whitfield
[2020-07-05 20:39] LABS: Procalcitonin 0.34 ng/mL (0-0.5)
[2020-07-05] MEDS: vancomycin 1,500 MG/300 ML PIGGYBACK 200 MG IV (20:39)
[2020-07-05] MEDS: sodium chloride 0.9% 1,000 ML 125 ML IV (20:49)
--- NOTE | 2020-07-05 21:02 | ECG_ITS ---
[facility] Test Date: 2020-07-05 Pat Name: Jaime Olivares Department: Room: [facility] Gender: Male Banking Assistant: : 1950 Requested By: Prakash Maldonado Order Number: [id number] Nora MD: Lilly Rowell M.D. Measurements Intervals [place] Rate: 74 P: 77 TX: 184 QRS: -78 QRSD: 117 T: 43 QT: 379 QTc: 422 Interpretive Statements SINUS RHYTHM WITH OCCASIONAL VENTRICULAR PREMATURE COMPLEXES WITH OCCASIONAL SUPRAVENTRICULAR PREMATURE COMPLEXES Possible right atrial enlargement POSSIBLE LEFT ATRIAL ENLARGEMENT [-0.1mV P WAVE IN V1/V2] MARKED LEFT AXIS DEVIATION [QRS AXIS < -30] INFERIOR MYOCARDIAL INFARCTION [40+ ms Q WAVE AND/OR ST/T ABNORMALITY IN II/aVF], PROBABLY OLD INTERPRETATION BASED ON A DEFAULT AGE OF 40 YEARS Compared to ECG 07/05/2020 17:40:51 Left-axis deviation now present Myocardial infarct finding still present Electronically Signed On 07-06-2020 19:14:28 PROPOSAL SPECIALIST by Lilly Rowell M.D. [id number]
[2020-07-05 21:32] LABS: Partial Thromboplastin Time 31.6 SECONDS (23.9-36.7)
[2020-07-05] MEDS: heparin drip 25,000 UNIT/500 ML PREMIX 34 UNIT IV (21:33)
[2020-07-05 22:06] LABS: Troponin 5 6HR 426.3 ng/L (0-15); Troponin 5 6HR Delta -47.7 ng/L (0-12)
[2020-07-05 22:07] LABS: Creatine Phosphokinase 832 U/L (39-308)
[2020-07-05 23:34] LABS: Creatinine Urine, Random 19 mg/dL (39-259); Urine Random Sodium 45 mmol/L
[2020-07-05] MEDS: budesonide 0.5 mg/2 mL Neb INHALATION (23:48)
[2020-07-06] VITALS (74 sets, daily range): BP systolic 76–141; BP diastolic 50–81; PULSE 60–105; RESP 12–16; TEMP 37.1–37.2; O2SAT 91–97; BMI 32.5
[2020-07-06 03:44] LABS: Basophils % 0.3 %; Hematocrit 40.9 % (42.0-52.0); Hemoglobin 13.3 g/dL (11.7-16.6); Lymphocytes # 1.5 10^3/uL (0.8-4.8); Lymphocytes % 9.6 %; Mean Corpuscular HGB Conc 32.5 g/dL (30.0-36.0); Mean Corpuscular Hemoglobin 28.7 pg (28.0-34.0); Mean Corpuscular Volume 88.3 fL (80-94); Mean Platelet Volume 11.4 fL (7.4-10.4); Monocytes # 1.5 10^3/uL (0.2-0.9); Monocytes % 9.5 %; Neutrophils # 12.32 10^3/uL (1.8-7.7); Neutrophils % 79.4 %; Nucleated Red Blood Cells # 0.1 /100WBC; Nucleated Red Blood Cells % 0.6 %; Red Blood Count 4.63 10^6/uL (4.1-5.3); Red Cell Distribution Width 14.3 % (12.1-15.1); White Blood Count 15.5 10^3/uL (4.0-10.0)
[2020-07-06 03:54] LABS: Platelet Count 132 10^3/cmm (130-400)
[2020-07-06] MEDS: sodium chloride 0.9% 1,000 ML 125 ML IV (04:11)
[2020-07-06 04:12] LABS: Partial Thromboplastin Time 57.2 SECONDS (23.9-36.7)
[2020-07-06 04:16] LABS: Alanine Aminotransferase 257 U/L (0-41); Albumin Level 2.7 g/dL (3.5-5.2); Alkaline Phosphatase 133 IU/L (40-130); Calcium 7.1 mg/dL (8.5-10.5); Carbon Dioxide 33 mmol/L (22-29); Chloride 87 mmol/L (98-107); Globulin 2.2 g/dL (1.3-4.6); Glomerular Filtration Rate 33.4 mL/min (90-130); Glucose 125 mg/dL (65-115); Osmolality Calculated 311 mOsm/kg (285-295); Sodium 134 mmol/L (136-145); Total Bilirubin 1.9 mg/dL (0.15-1.2); Total Protein 4.9 g/dL (6.6-8.7)
[2020-07-06 04:37] LABS: ABG PCO2 55.7 mmHg (35-45); Arterial Blood Gas Hematocrit 44.8 % (42-52); Base Excess ABG 16.9 mmol/L (-2.0-2.0); Blood Gas Allen Test Pos; Blood Gas Operator Identificat JB; Blood Gas Sample Site Brachial, right; Blood Gas Sample Type Arterial; Blood Gas Tidal Volume 0.55; HCO3 ABG 43.2 mmol/L (22-26); Oxygen Device VENT; PO2 ABG 60.7 mmHg (80.0-100.0)
[2020-07-06] MEDS: famotidine 20 mg/2 mL INJ IVP ×2 (05:07→17:51)
[2020-07-06 05:29] LABS: Anion Gap 17.2 (5-19); Aspartate Amino Transferase 59 U/L (0-40); Blood Urea Nitrogen 102 mg/dL (8-23); Potassium 3.2 mmol/L (3.5-5.1)
[2020-07-06 06:18] LABS: Hepatitis A Antibody IgM Non-Reactive (Nonreactive); Hepatitis B Core IgM Non-Reactive (Nonreactive); Hepatitis B Surface Antigen Non-Reactive (Nonreactive); Hepatitis C Virus Antibody Non-Reactive (Nonreactive)
[2020-07-06] MEDS: budesonide 0.5 mg/2 mL Neb INHALATION ×2 (07:27→19:39)
--- NOTE | 2020-07-06 08:38 | PM.PN ---
Subjective Subjective: Interval history: sedated on ventilator Medications: Reviewed: Yes Vitals/I&O/Wt Last Vital Signs Temp 97.4 F L 07/05/20 14:37 Pulse 69 07/06/20 07:35 Resp 12 07/06/20 07:35 BP 91/63 07/06/20 06:00 Pulse Ox 95 07/06/20 07:33 07/05/20 07/06/20 07/06/20 22:59 06:59 14:59 Intake Total 343.905 / 829.315 7607.041 / 2145.946 Output Total 2600 / 2600 Balance 343.905 / 343.905 -797.959 / -454.054 Weight last 48 hrs Weight 117.934 kg Weight 122.47 kg Physical Exam Const: COMMON NORMALS: no acute distress Extremity: GENERAL: Yes edema (1-2+ legs with redness) Urinary Catheter Management^: [place]: Cath Placed During This Visit: yes Reason for Continuing Indwelling Catheter: Accurate Measurement of Urinary Output in Critically Ill Patients Urinary Catheter Date of Insertion: 07/05/20 Urinary Catheter Time of Insertion: 15:50 Data : 07/06/20 03:31 07/06/20 03:31 Other Labs: urine sodium 45 (after IV lasix) CK 832 albumin 2.7, calcium 7.1, sara Ca 8.3 Micro: Microbiology 07/05/20 17:00 Gram Stain - Final Sputum - Endotracheal Tube Aspirate 07/05/20 15:10 Blood Culture - Preliminary Blood SPECIMEN COLLECTED 07/05/20 15:00 Blood Culture - Preliminary Blood SPECIMEN COLLECTED ABG Interpretation 1: 7.50/55.7/60.7 50% + 10 PEEP A&P Additional A&P Information 1. Acute kidney injury, possibly due to volume depletion (furosemide and metalozone). Baseline serum Cr 0.9 mg/dL Jan 2020. Excellent urine output, BUN and Cr improving 2. Hyponatremia improving 3. Hypochloremic metabolic alkalosis, hypokalemia 4. Acute hypercarbic respiratory failure, history of O2 dependent COPD 5. Liver function test abnormalities 6. Mild rhabdomyolysis Rec: Reduce IVF hydration, renal ultrasound, repeat CK, check vanco level (hold vanco and dose by level), replace KCl, check Mg, phos, continue to hold diuretics Attestations Medical Necessity Statement*: critically ill in ICU Time Spent in Patient Care: Greater than 35 minutes Coding Level of Care Code Acute Transplant Rn for Seymour Whitfield
[2020-07-06] MEDS: potassium chloride premix 100 ML 50 MEQ IV (09:56)
[2020-07-06 10:50] LABS: Magnesium 1.5 mg/dL (1.7-2.3)
[2020-07-06] MEDS: ipratropium-albuterol 3 mL Neb INHALATION ×3 (11:26→19:39)
[2020-07-06] MEDS: sodium chloride 0.9% 1,000 ML 50 ML IV (11:48)
--- NOTE | 2020-07-06 11:49 | P.PN_ITS ---
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 History was obtained from review of records and discussion with ER staff. Patient was apparently found to have oxygen saturation in mid 70s with increasing o2 requirement. Upon arrival to ER he was placed on BiPAP. Initial laboratory work up showed a WBC of 11.1, hemoglobin of 14.0, hematocrit 44.5 and platelet count of 183. Sodium 125, potassium 4.6, chloride 77, bicarb 32, BUN 136 and creatinine of 3.0. Lactic acid of 2.0. AST of 76, ALT of 397 and alkaline phosphatase of 186. Troponin T 474 - > 480.6, Delta troponin T of 6.6. ProBNP of 20,006. INR of 1.65, D-dimer of 2.84. Initial ABG on BiPAP of 7.33, PCO2 of 72.8, Po2 of 89.6, bicarb of 37.9. Patient was not tolerating Bipap due to agitation. He was subsequently intubated on placed on mechanical ventilation. Was noted to have hypotension as well after sedative medications for which he was started on Levophed. He was placed on versed and f entanyl for sedation. Imaging studies included a chest x-ray which showed cardiomegaly, pulmonary v ascularity appeared normal with no evidence of pneumothorax or infiltrates. Head CT was also ordered and pending at the time of my eval. In addition to above patient was also given Lasix 40 mg IV x 1 and Levaquin 750 mg IV x 1. Upon admission he was started on broad spectrum antibiotics for suspected R>L cellulitis however patient did have underlying dependent rubra with chronic lymphedema/wounds. Blood cultures were drawn. Due to elevated troponin the trend of which was not indicative of acs he was started on heparin gtt. Also due to elevated d-dimer with inablity to entirely rule out acute PE however given the decrease of hypoxemia with out any chest x-ray findings of pulmonary edema possiblity of acute PE was high. Nephrology was also consulted due to worsening acute renal function. He was given lasix in ER however appeared for me intravascularly dry. Was started on IVF. He continued to require levophed to mantain MAP of greater than 65. 07/06/20 Overnight patient remained intubated on mechanical vent. He was started on broad spectrum antibiotics for suspected R>L cellulitis however patient did have underlying dependent rubra with chronic lymphedema/wounds. Blood cultures were drawn. Due to elevated troponin the trend of which was not indicative of acs he was started on heparin gtt. Also due to elevated d-dimer with inablity to entirely rule out acute PE however given the decrease of hypoxemia with out any chest x-ray findings of pulmonary edema possiblity of acute PE was high. Nephrology was also consulted due to worsening acute renal function. He was given lasix in ER however appeared for me intravascularly dry. Was started on IVF. He continued to require levophed to mantain MAP of greater than 65. Medications: Reviewed: Yes Vitals/I&O/Wt Last Vital Signs Temp 98.7 F 07/06/20 07:00 Pulse 80 07/06/20 11:38 Resp 12 07/06/20 11:39 BP 109/66 07/06/20 10:45 Pulse Ox 93 07/06/20 11:37 07/05/20 07/06/20 07/06/20 22:59 06:59 14:59 Intake Total 343.905 / 428.448 4181.041 / 2145.946 902.083 / 902.083 Output Total 2600 / 2600 Balance 343.905 / 343.905 -797.959 / -454.054 902.083 / 902.083 Weight last 48 hrs Weight 117.934 kg Weight 122.47 kg Physical Exam Narrative: EXAM NARRATIVE: General : Intubated on MV HEENT - ET tube at 22 Chest - vented sounds CVS : Distant heart sounds ABD ; Non-distended Ext : Bilateral LE with chronic wound, dependent rubra L>R Neuro: unable to assess Urinary Catheter Management^: Vent[place]: Cath Placed During This Visit: yes Reason for Continuing Indwelling Catheter: Accurate Measurement of Urinary Outpu t in Critically Ill Patients Urinary Catheter Date of Insertion: 07/05/20 Urinary Catheter Time of Insertion: 15:50 Data : 07/06/20 03:31 07/06/20 03:31 Micro: Microbiology 07/05/20 17:00 Gram Stain - Final Sputum - Endotracheal Tube Aspirate 07/05/20 15:10 Blood Culture - Preliminary Blood SPECIMEN COLLECTED 07/05/20 15:00 Blood Culture - Preliminary Blood SPECIMEN COLLECTED A&P Assessment and plan (1) Acute respiratory failure with hypoxia and hypercapnia: Status: Acute (2) Acute renal failure: Status: Acute (3) Cellulitis: Status: Acute (4) Chronic respiratory failure: Status: Acute (5) PAD (peripheral artery disease): Status: Acute (6) Mixed hyperlipidemia: Status: Acute (7) Lesion of true vocal cord: Status: Acute (8) Chronic bilateral low back pain: Status: Chronic Qualifiers: Sciatica presence: with sciatica Sciatica laterality: bilateral sciatica Qualified Code(s): M54.42 - Lumbago with sciatica, left side; M54.41 - Lumbago with sciatica, right side; G89.29 - Other chronic pain (9) Lower extremity edema: Status: Chronic (10) Transaminitis: Status: Acute (11) COPD (chronic obstructive pulmonary disease): Status: Chronic Qualifiers: COPD type: unspecified COPD Qualified Code(s): J44.9 - Chronic obstructive pulmonary disease, unspecified (12) Hyponatremia: Status: Acute Acute on chronic hypoxemic hypercapnia respiratory failure - Intubated on MV - Fentanyl/versed for sedation - RASS of - 2 - ABG : Ph 7.50, PCO2 of 55.7, Po2 60.7, HCO3 of 43.2 on Fio2 of 50%, PEEP 10 - Chest x-ray in am - Start Duoneb q6r scheduled - Pulmicort 0.5 mg INH BID - Will add Solu-medrol 40 mg IV q8hr - Consider pulmonary consult 02/Steroid dependent COPD exacerbation - Management as noted above - Low suspicion of underlying bacterial pneumonia - Empirically on abx - May consider pulmonary consult Sepsis suspected due to left lower extremity cellulitis - Le cellulitis vs dependent rubra given hx of chronic lymphedema - Continue vancomycin/primixin for now - Follow up on blood culture - Pro-calcitonin negative howver - Will likely de-escalate abx in next 1-2 days if afebrile and culture negative Acute unspecified HF exacerbation - Cardiomegaly noted on chest x-ray - Increasing LE edema - Holding diuresis due to renal failure - Follow upon ECHO - ProBMP - Non-ST elevation HI - Troponin 474 ->480-> 426 - On IV heparin gtt - Cardiology consulted - ECHO pending Acute renal failure / Hyponatremia / Mild rhabdomyolysis - Creatinine 3.0 > 2.0 - CK 832 - NA - 125-134 - U/O improving 0.92 ml/kg/hr - 2600 output since admit - BMP in am - Nephrology on board Hypokalemia, Hypomagnesemia - K 3.2, Mg.1.5 - Replace - BMP in am - Mg level in am Elevated D-Dimer - Possible PE - Heparin gtt - Consider VQ scan Elevated LFTs - Etiology unclear - AST 76-59 - ALT 397-257 - Hepatitis panel negative - Will order RUQ US - CMP in am Additional medical History Vocal cord malignancy s/p Chemo-radiation Hx of Colon cancer s/p p.colectomy Obstructive sleep apnea Peripheral arterial disease Polyneuropathy Gasteroesophageal reflux disease disease DVT ppx on heparin gtt Attestations Medical Necessity Statement*: Continue hospitalization for ongoing evaluation and treatment of hypoxic respiratory failure requiring mechanical ventilation, elevated troponin, acute renal insufficiency, sepsis and elevated troponins. Time Spent in Patient Care: Greater than 35 minutes (>than 50% of time spent in counselling and/or direct pt care on unit) . 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
--- NOTE | 2020-07-06 12:02 | PC.RESP ---
Pulmonary Rehab information sent to patient.
--- NOTE | 2020-07-06 12:10 | US_ITS ---
WS: [id number] Complete ABDOMINAL ULTRASOUND HISTORY: RUQ, elevated LFT COMPARISON: 04/28/2016. Very limited evaluation of the abdominal structures. Liver: 21.5 cm in length. Enlarged liver. Indeterminate for cyst adjacent to the liver. This could be external to the liver. There is a small amount of subcapsular fluid. Gallbladder: Not visualized. May have been surgically removed. Pancreas: Not visualized. CBD: 0.5 cm. Right kidney: 12.4 cm x 6.2 cm x 5.3 cm. Poorly visualized kidney. Increased echogenicity. No obstru ction. Left kidney: 12.4 cm x 5.8 cm x 5.2 cm. Poorly visualized. Increased echogenicity. Lobulated contour to the superior pole may be a renal mass. Spleen: Normal size and echogenicity. Abdominal aorta and IVC are within normal limits. No ascites. US/US abdomen complete* [id number] IMPRESSION: 1. Very limited evaluation of the abdominal structures due to body habitus. 2. Gallbladder not identified. May have been surgically removed. 3. No hydronephrosis. 4. Indeterminate for mass upper pole LEFT kidney. 5. Cystic area adjacent to the liver. This may be within the liver or external to the liver. CT is being performed later today.
[2020-07-06] MEDS: magnesium sulfate premix 2 GM/50 ML PIGGYBACK IV (12:42)
--- NOTE | 2020-07-06 13:10 | XR_ITS ---
WS: [id number] Portable AP upright chest, 07/06/2020 Clinical Data: picc placement Comparison: Portable chest, 07/05/2020 Findings: The right PICC line has been inserted and it ends in the superior vena cava at the level of the right seventh rib. No pneumothorax is seen. The remainder of the chest shows no change. XR/XR chest 1V portable [id number] Impression: Satisfactory placement of right PICC line.
--- NOTE | 2020-07-06 13:27 | CTR_ITS ---
PROCEDURE INFORMATION: Exam: CT Abdomen And Pelvis Without Contrast Exam date and time: 07/06/2020 5:47 PM Age: 70 years old Clinical indication: Abdominal pain; Generalized; Prior surgery; Surgery type: Gb, back, hernia, colectomy; Additional info: Abdominal pain, renal failure, transaminitis TECHNIQUE: Imaging protocol: Computed tomography of the abdomen and pelvis without contrast. Total images: 269 Radiation optimization: All CT scans at this facility use at least one of these dose optimization techniques: automated exposure control; mA and/or kV adjustment per patient size (includes targeted exams where dose is matched to clinical indication); or iterative reconstruction. COMPARISON: CT abdomen pelvis w con* [id number] 11/02/2018 12:29 PM RADIATION DOSE METRICS: Total DLP (mGy-cm): 1818.5 FINDINGS: Tubes, catheters and devices: Nasogastric tube tip at the level of fundus of the stomach. Epidural pain stimulator. Lungs: Near complete left lower lobe atelectasis. Scant left pleural effusion. Evidence of antecedent granulomatous disease. COPD/chronic bronchitis. Liver: No visible hepatic mass or cystic structure. Rare calcified granuloma. Gallbladder and bile ducts: Status post cholecystectomy. Pancreas: Pancreatic atrophy. No visible pancreatic ductal ectasia. Spleen: Splenic calcified granulomas of antecedent disease. Adrenal glands: Stable 27 mm left adrenal adenoma. No follow-up recommended. Kidneys and ureters: Stable simple cyst superior pole left kidney measuring approximately 15 mm in maximum diameter. No follow-up recommended. No visible hydronephrosis or perinephric fluid bilaterally. No very tiny focus of nonobstructing calyceal nephrolithiasis equator left kidney under 2 mm. Stomach and bowel: Nonobstructive bowel pattern. No visible significant adynamic or reactive ileus. Intact transverse colon anastomotic sutures. Minimal diverticulosis coli without visible evidence for acute diverticulitis. Appendix: The appendix is visualized and appears noninflamed. Intraperitoneal space: Small amount of free fluid in the pouch of Anita. No visible pneumoperitoneum. Vasculature: Cardiomegaly with advanced 3 vessel coronary artery disease. No visible pericardial effusion. The abdominal aorta is nonaneurysmal. Advanced arterial sclerotic disease. Lymph nodes: Unremarkable. No enlarged lymph nodes. Urinary bladder: Ventura catheter within the urinary bladder. Tiny amount of free air within the lumen of the urinary bladder which may be iatrogenic. Cannot exclude cystitis. Reproductive: Unremarkable as visualized. Bones/joints: No visible acute osseous abnormality. Old right rib fractures. Inter pedicle screw and side bar fixation L4 and L5. Intervertebral disc prosthesis L4/L5. Soft tissues: Obesity. Other findings: Quantum mottle artifact which degrades image quality in detail. CT/CT abdomen pelvis wo con [id number] IMPRESSION: 1. Currently no visible evidence of acute abdominal or pelvic pathologic process. 2. Near complete left lower lobe atelectasis. 3. Scant left pleural effusion. 4. Stable left adrenal adenoma. No follow-up recommended. 5. Tiny focus of nonobstructing calyceal nephrolithiasis left kidney under 2 mm. 6. Small amount of free fluid the pouch of Harrison. 7. Cardiomegaly with advanced 3 vessel coronary artery disease. 8. Ventura catheter within the urinary bladder. Tiny amount of free air within the lumen of the urinary bladder which may be iatrogenic. Cannot exclude cystitis. 9. Other nonurgent, nonemergent, chronic, postoperative, and age related findings as detailed in text above. Radiation Dose CTDIVOL = (mGy): DLP = 1818.5 (mGy-cm)
[2020-07-06] MEDS: heparin drip 25,000 UNIT/500 ML PREMIX 27 UNIT IV (13:30)
--- NOTE | 2020-07-06 14:28 | P.CONIM_ITS ---
Providers/Reason For Consult Consulting Physican/Specialty*: Luke Rowell MD/cardiology Reason for Consult*: Patient with respiratory distress, elevated troponin T and BNP Attending Physician: Oliverio Malagon History of Present Illness History of Present Illness Jaime Olivares is a 70 year old male who is admitted to hospital through the [facility] room where he presented with complaints of respiratory distress and altered mental status. Patient was found to be hypoxic. He also had features of renal failure. He was intubated in the emergency room and is subsequently admitted to the hospital for further evaluation and management. Patient is ventilator and is sedated. Information is from the medical records. This patient has a history of COPD and obstructive sleep apnea. He has been having worsening shortness of breath lately and is being followed up in pulmonology clinic by Dr. Kam. He also has been having swelling of the lower extremities for the last several months. He has been taking diuretics as an outpatient for the swelling. He has a history of chronic venous stasis and stasis dermatitis. He is on chronic oxygen therapy at home. Apparently his shortness of breath started gradually getting worse. On the day of admission, he was found to have altered mental status. For that reason, the EMS was called in. His oxygen saturation was around 70% based on the EMS records. He was found to be confused and drowsy in the emergency room. He was placed on BiPAP. Initially there was some improvement in his oxygenation. But then it started getting worse again. For that reason, he was intubated in the emergency room. Patient had an elevated BNP in the 4000, in January of this year. He had normal LV ejection fraction in 2010. He has not had a recent cardiac work-up. He also is known to have peripheral artery disease. 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 He is undergoing radiation treatment. He has no documented history for coronary artery disease or myocardial infarction. His initial troponin T was in the 400s. 2-hour delta was 6.0. 6- hour delta was -46. His initial BNP was in the 20,000 range. He had an echocardiogram done which revealed an LV ejection fraction around 30%. He had a concentric left ventricular hypertrophy with a diffuse hypokinesia. Dilated right ventricle with a severe diffuse hypokinesia and somewhat paradoxical interventricular septum. Features may suggest acute pressure overload in the right ventricle. Review of Systems Narrative: CONSTITUTIONAL: No fever or chills. Progressive shortness of breath as mentioned above EYES: No blurring of vision or other visual disturbances lately. ENT: Vocal cord tumor as mentioned above CARDIOVASCULAR: As mentioned above. RESPIRATORY: As mentioned above GASTROINTESTINAL: No hematemesis or melena. GENITOURINARY: Patient was found to be in acute renal failure at the time of admission INTEGUMENTARY: No skin rashes or history of skin cancer. NEURO: Altered mental status as mentioned above PSYCHIATRIC: No history of psychosis or major depression. HEMATOLOGIC: No bleeding disorders or significant anemia. ENDOCRINE: No history for diabetes MUSCULOSKELETAL: No recent joint pain or swelling. ALLERGY/IMMUNOLOGY: As mentioned above. Meds/Allergies Home Medications and Allergies Home Medications Medication Instructions Recorded Confirmed Last Taken Type albuterol sulfate 2.5 mg INHALATION QID PRN 06/21/19 07/05/20 08/23/19 History butenafine 1 % topical cream 1 applic TOPICAL BID PRN 06/21/19 07/05/20 08/23/19 History cyclosporine 0.05 % eye drops 1 drop OPHTHALMIC (EYE) Q12H 06/21/19 07/05/20 08/23/19 History epinephrine 0.3 mg/0.3 mL 0.3 mg IM ONCE 06/21/19 07/05/20 Unknown History injection, auto-injector fluticasone propionate 50 2 spray INTRANASAL BID ml 06/21/19 07/05/20 08/23/19 History mcg/actuation nasal spray,suspension budesonide 0.5 mg/2 mL suspension 0.5 mg INHALATION BID 90 Days #360 09/12/19 07/05/20 Unknown Rx for nebulization ml prochlorperazine maleate 5 mg 5 mg PO QID PRN 12/15/19 07/05/20 Unknown History tablet mupirocin 2 % topical ointment 1 applic TOPICAL BID #22 gm 01/18/20 07/05/20 Unknown Rx walker with seat /wheels #1 ea 01/20/20 07/05/20 Unknown Rx montelukast 10 mg tablet 10 mg PO DAILY #30 tab 01/23/20 07/05/20 Unknown Rx carbamide peroxide 6.5 % ear drops 10 drop EAR-BOTH DAILY 4 Days #30 02/16/20 07/05/20 Unknown Rx ml ipratropium 0.5 mg-albuterol 3 mg See Rx Instructions .ROUTE 02/21/20 07/05/20 Unknown Rx (2.5 mg base)/3 mL nebulization .COMPLEX #360 ml soln cetirizine 10 mg tablet 10 mg PO DAILY PRN 30 Days #30 tab 02/29/20 07/05/20 Unknown Rx albuterol sulfate 90 mcg/actuation See Rx Instructions .ROUTE 03/26/20 07/05/20 Unknown Rx aerosol inhaler .COMPLEX #8.5 gm furosemide 20 mg tablet 40 mg PO DAILY PRN #60 tab 04/03/20 07/05/20 Unknown Rx fluconazole 100 mg tablet 100 mg PO DAILY 04/04/20 07/05/20 Unknown History magnesium L-lactate 84 mg See Rx Instructions .ROUTE 04/13/20 07/05/20 Unknown Rx tablet,extended release .COMPLEX #30 tab potassium chloride 20 mEq See Rx Instructions .ROUTE 04/13/20 07/05/20 Unknown Rx tablet,extended release .COMPLEX #30 tab citalopram 20 mg tablet 20 mg PO DAILY 30 Days #30 tab 05/08/20 07/05/20 Unknown Rx metolazone 2.5 mg tablet See Rx Instructions .ROUTE 05/08/20 07/05/20 Unknown Rx .COMPLEX #30 tab azithromycin 500 mg tablet 500 mg PO .QOD 30 Days #15 tab 05/15/20 07/05/20 Unknown Rx levofloxacin 750 mg tablet 750 mg PO DAILY 5 Days #5 tab 05/15/20 07/05/20 Unknown Rx finasteride 5 mg tablet 5 mg PO DAILY 30 Days #30 tab 05/23/20 07/05/20 Unknown Rx promethazine 25 mg tablet 25 mg PO Q6H PRN #14 tab 05/30/20 07/05/20 Unknown Rx diazepam 10 mg tablet 10 mg PO DAILY PRN 60 Days #60 tab 06/05/20 07/05/20 Unknown Rx prednisone 5 mg tablet 5 mg PO DAILY #30 tab 06/20/20 07/05/20 Unknown Rx lidocaine HCl 2 % mucosal solution See Rx Instructions .ROUTE 06/28/20 07/05/20 Unknown Rx .COMPLEX #100 ml nystatin 100,000 unit/mL oral 5 ml PO QID 30 Days #600 ml 06/28/20 07/05/20 Unknown Rx suspension pantoprazole 40 mg tablet,delayed 40 mg PO DAILY 30 Days #30 tab 06/28/20 07/05/20 Unknown Rx release sucralfate 100 mg/mL oral 10 ml PO QID 30 Days #1200 ml 06/28/20 07/05/20 Unknown Rx suspension azelastine 1 - 2 spray INTRANASAL BID 07/05/20 07/05/20 Unknown History carbamazepine 100 mg PO DAILY 07/05/20 07/05/20 Unknown History morphine 30 mg PO TID PRN 07/05/20 07/05/20 Unknown History ondansetron HCl 8 mg PO BID PRN 07/05/20 07/05/20 Unknown History oxycodone [OxyContin] 60 mg PO Q12H 07/05/20 07/05/20 Unknown History Allergies Allergy/AdvReac Type Severity Reaction Status Date / Time methadone Allergy Severe ALGY-Swell Verified 06/05/20 14:55 Lip/Tongue/Throat bee venom protein (honey bee) Allergy ALGY-Anaphy Verified 06/05/20 14:55 laxis Penicillins Allergy Unknown Verified 06/05/20 14:55 fentanyl AdvReac ADR-Shakine Verified 06/05/20 14:55 ss gabapentin [From Neurontin] AdvReac Unknown Verified 06/05/20 14:55 Current Medications Current Medications Generic Name Dose Route Start Last Admin Trade Name Freq PRN Reason Stop Dose Admin Albuterol/Ipratropium 3 ml 07/06/20 10:17 07/06/20 11:26 Ipratropium-Albuterol 3 Ml Neb INHALATION 3 ml Q4H.RESPIRATORY PRN Administration SHORTNESS OF BREATH Budesonide 0.5 mg 07/05/20 20:00 07/06/20 07:27 Budesonide 0.5 Mg/2 Ml Neb INHALATION 0.5 mg BID.RESPIRATORY VIMAL Administration Famotidine 20 mg 07/05/20 18:00 07/06/20 05:07 Famotidine 20 Mg/2 Ml Inj IVP 20 mg Q12H VIMAL Administration Midazolam HCl 100 mg/ Sodium 100 mls @ 0 mls/hr 07/05/20 16:30 07/06/20 14:23 Chloride IV Infused .Q0M VIMAL Titration Protocol Per Protocol Fentanyl 1,000 mcg/ Sodium 100 mls @ 0 mls/hr 07/05/20 16:30 07/06/20 08:12 Chloride IV 120 mcg/hr .Q0M VIMAL 12 mls/hr Administration Protocol Per Protocol Norepinephrine Bitartrate 4 mg 254 mls @ 0 mls/hr 07/05/20 16:45 07/06/20 05:53 / Dextrose IV 3 mcg/min .Q0M VIMAL 11.4 mls/hr Titration Protocol Per Protocol Heparin Sodium/Sodium Chloride 25,000 unit in 500 mls @ 0 mls/hr 07/05/20 19:00 07/06/20 13:30 Heparin Drip IV 11.02 unit/kg/hr .Q0M VIMAL 27 mls/hr Administration Protocol Per Protocol Vancomycin/PEG/NADA/Lysine/Water 1,500 mg in 300 mls @ 200 mls/hr 07/05/20 20:30 07/05/20 23:36 Vancocin IV Infused Q24H VIMAL Infusion Sodium Chloride 1,000 mls @ 50 mls/hr 07/05/20 20:30 07/06/20 11:48 Sodium Chloride 0.9% IV 50 mls/hr .Q20H VIMAL Administration Imipenem/Cilastatin Sodium 500 100 mls @ 200 mls/hr 07/06/20 14:00 07/06/20 13:59 mg/ Sodium Chloride IV 200 mls/hr Q8H VIMAL Administration Protocol Methylprednisolone Sodium Succinate 40 mg 07/06/20 13:00 07/06/20 12:43 Methylprednisolone Sod Succ 40 Mg/Ml Inj IVP 40 mg Q8H VIMAL Administration PFSH Acute PFSH: Medical History (Updated 07/06/20 @ 15:00 by Lilly Rowell MD) Acquired bilateral hammer toes Acute diverticulitis Bee sting allergy Bilateral bunions Bulging lumbar disc Chronic bilateral low back pain Chronic erythematous candidosis Chronic low back pain Chronic nausea Chronic respiratory failure with hypoxia COPD (chronic obstructive pulmonary disease) Degenerative disc disease Dysphagia, unspecified Emphysema, unspecified GERD (gastroesophageal reflux disease) History of colon cancer Hypersomnia Lesion of true vocal cord Lower extremity edema Mixed hyperlipidemia Nicotine dependence, cigarettes, uncomplicated Nocturia Onychomycosis MANISH (obstructive sleep apnea) Other specified joint disorders, right shoulder PAD (peripheral artery disease) Polyneuropathy, unspecified Sebaceous cyst of scrotum Segmental and somatic dysfunction of rib cage Blanco-Isaac syndrome Vasomotor rhinitis Venous reflux Surgical History H/O foot surgery H/O hernia repair History of back surgery History of cholecystectomy History of esophagogastroduodenoscopy (EGD) History of partial colectomy Family History Mother , Age 73 Hodgkin disease Cancer Father , Age 67 Stroke Social History Smoking and tobacco status: former smoker Quit status (tobacco): has quit using tobacco Year quit tobacco: 2020 - 1PPD x 50 Years Former quit date comment: Smokes non-nicotine vape Alcohol intake: never Desire information about alcohol rehabilitation?: No Counseling given: No Desire information about substance/drug rehabilitation?: No Counseling given: No Lives independently: Yes Household members: spouse Marital status: Highest education level completed: Some College, No Degree service: No Current occupational status: retired History of recent travel: No Current gender identity: Male Vitals/I&O/Wt Last Vital Signs Temp 98.7 F 07/06/20 07:00 Pulse 63 07/06/20 13:15 Resp 12 07/06/20 13:40 BP 100/60 07/06/20 12:30 Pulse Ox 92 07/06/20 13:15 07/05/20 07/06/20 07/06/20 22:59 06:59 14:59 Intake Total 343.905 / 135.319 8707.041 / 2145.946 1448.817 / 1448.817 Output Total 2600 / 2600 1250 / 1250 Balance 343.905 / 343.905 -797.959 / -454.054 198.817 / 198.817 Weight last 48 hrs Weight 260 lb Weight 270 lb Physical Exam Narrative: EXAM NARRATIVE: GENERAL: The patient is intubated and sedated. HEENT: Minimal pallor with no icterus. NECK: Trachea appears to be central. No masses noted. No JVD or thyromegaly appreciated. No carotid bruit. RESPIRATORY: Breath sounds are bilaterally with occasional coarse crackles. BREASTS: Deferred. HEART: Heart sounds are muffled. No significant murmurs appreciated. No pericardial rub. ABDOMEN: No vessel pulsations or distention. No tenderness. No organomegaly appreciated. No abdominal bruit. Bowel sounds are normally heard. : Deferred. RECTAL: Deferred. LYMPHATIC: No lymphadenopathy noted in the neck . EXTREMITIES: 2-3+ edema both lower extremities. Diffuse erythema , features of chronic venous stasis and some blisters in the both lower extremities. Could not feel the peripheral pulses. MUSCULOSKELETAL: No acute joint deformities or swelling SKIN: As mentioned above NEUROPSYCHIATRIC: Patient is intubated and sedated. Urinary Catheter Management^: [place]: Cath Placed During This Visit: yes Reason for Continuing Indwelling Catheter: Accurate Measurement of Urinary Output in Critically Ill Patients Urinary Catheter Date of Insertion: 07/05/20 Urinary Catheter Time of Insertion: 15:50 Data Labs: Other Labs: Laboratory Last Values WBC 15.5 10^3/uL (4.0 -10.0) H 07/06/20 03:31 RBC 4.63 10^6/uL (4.1 -5.3) 07/06/20 03:31 Hgb 13.3 g/dL (11.7-1 6.6) 07/06/20 03:31 Hct 40.9 % (42.0-52.0 ) L 07/06/20 03:31 MCV 88.3 fL (80-94) 07/06/20 03:31 MCH 28.7 pg (28.0-34. 0) 07/06/20 03:31 MCHC 32.5 g/dL (30.0-3 6.0) 07/06/20 03:31 RDW 14.3 % (12.1-15.1 ) 07/06/20 03:31 Plt Count 132 10^3/cmm (130 -400) 07/06/20 03:31 MPV 11.4 fL (7.4-10.4 ) H 07/06/20 03:31 Neut % (Auto) 79.4 % 07/06/20 03:31 Lymph % (Auto) 9.6 % 07/06/20 03:31 [place] % (Auto) 9.5 % 07/06/20 03:31 Eos % (Auto) 0.0 % 07/06/20 03:31 Baso % (Auto) 0.3 % 07/06/20 03:31 Neut # (Auto) 12.32 10^3/uL (1. 8-7.7) H 07/06/20 03:31 Lymph # (Auto) 1.5 10^3/uL (0.8- 4.8) 07/06/20 03:31 [place] # (Auto) 1.5 10^3/uL (0.2- 0.9) H 07/06/20 03:31 Eos # (Auto) 0.0 10^3/uL (0.0- 0.8) 07/06/20 03:31 Baso # (Auto) 0.0 10^3/uL (0.0- 0.1) 07/06/20 03:31 Nucleated RBC % (a uto) 0.6 % 07/06/20 03:31 Nucleated RBCs # 0.1 /100WBC 07/06/20 03:31 PT 20.10 SECONDS (12 .1-14.9) H 07/05/20 15:00 INR 1.65 (0.8-1.2) H 07/05/20 15:00 APTT 117.0 SECONDS (23 .9-36.7) H D 07/06/20 12:20 D-Dimer 2.84 ug/mIFEU (0- 0.59) H 07/05/20 15:00 Specimen Type Arterial 07/06/20 04:23 Sample Site Brachial, right 07/06/20 04:23 ABG pH 7.50 (7.35-7.45) H 07/06/20 04:23 ABG pCO2 55.7 mmHg (35-45) H 07/06/20 04:23 ABG pO2 60.7 mmHg (80.0-1 00.0) L 07/06/20 04:23 ABG HCO3 43.2 mmol/L (22-2 6) H 07/06/20 04:23 ABG Base Excess 16.9 mmol/L (-2.0 -2.0) H 07/06/20 04:23 Placido Test Pos 07/06/20 04:23 Hematocrit 44.8 % (42-52) 07/06/20 04:23 Hgb O2 Saturation 91.2 % (95-100) L 07/05/20 15:32 Carboxyhemoglobin 4.6 %THgb (0.4-20 .1) 07/05/20 15:32 Methemoglobin 0.8 % (0.4-1.5) 07/05/20 15:32 Total Hemoglobin 14.3 g/dL (14-18) 07/05/20 15:32 O2 Delivery Device Vent 07/06/20 04:23 FiO2 50.0 % 07/06/20 04:23 Tidal Volume 0.55 07/06/20 04:23 PEEP 10.0 cmH20 07/06/20 04:23 Floor Coverer Apprentice ID Rich 07/06/20 04:23 Sodium 134 mmol/L (136-1 45) L 07/06/20 03:31 Potassium 3.2 mmol/L (3.5-5 .1) L 07/06/20 03:31 Chloride 87 mmol/L (98-107 ) L 07/06/20 03:31 Carbon Dioxide 33 mmol/L (22-29) H 07/06/20 03:31 Anion Gap 17.2 (5-19) 07/06/20 03:31 BUN 102 mg/dL (8-23) H* 07/06/20 03:31 Creatinine 2.0 mg/dL (0.7-1. 2) H 07/06/20 03:31 GFR Calculation 33.4 mL/min (90-1 30) L 07/06/20 03:31 Glucose 125 mg/dL (65-115 ) H 07/06/20 03:31 Calculated Osmolal ity 311 mOsm/kg (285- 295) H 07/06/20 03:31 Lactate 2.0 mmol/L (0.5-2 .2) 07/05/20 15:00 Calcium 7.1 mg/dL (8.5-10 .5) L 07/06/20 03:31 Magnesium 1.5 mg/dL (1.7-2. 3) L 07/06/20 03:31 Total Bilirubin 1.9 mg/dL (0.15-1 .2) H 07/06/20 03:31 AST 59 U/L (0-40) H 07/06/20 03:31 ALT 257 U/L (0-41) H 07/06/20 03:31 Alkaline Phosphata se 133 IU/L (40-130) H 07/06/20 03:31 Creatine Kinase 832 U/L (39-308) H* 07/05/20 15:00 Creatine Kinase Cancelled 07/05/20 15:00 Troponin T Baselin e 474 ng/L (0-15) H* 07/05/20 15:00 Troponin T 120 Min [place] 480.6 ng/L (0-15) H 07/05/20 17:15 Delta Troponin T 6.6 ABS# (0-10) 07/05/20 17:15 Troponin T Hi Sens 6Hr 426.3 ng/L (0-15) H 07/05/20 20:48 Troponin T Hi Sens 6Hr Delta -47.7 ng/L (0-12) L 07/05/20 20:48 NT-Pro-B Natriuret Pep 98736 pg/mL (0-12 5) H 07/05/20 15:00 Total Protein 4.9 g/dL (6.6-8.7 ) L D 07/06/20 03:31 Albumin 2.7 g/dL (3.5-5.2 ) L 07/06/20 03:31 Globulin 2.2 g/dL (1.3-4.6 ) 07/06/20 03:31 Procalcitonin 0.34 ng/mL (0-0.5 ) 07/05/20 15:00 Urine Color Dark yellow (Yel low) 07/05/20 15:00 Urine Appearance Hazy (CLEAR) A 07/05/20 15:00 Urine pH 5 (5-7) 07/05/20 15:00 Ur Specific Gravit y 1.020 (1.005-1.0 30) 07/05/20 15:00 Urine Protein Neg (Negative) 07/05/20 15:00 Urine Glucose (UA) Norm (Normal) 07/05/20 15:00 Urine Ketones Negative (Negati ve) 07/05/20 15:00 Urine Blood 2+ (Negative) H 07/05/20 15:00 Urine Nitrate Negative (Negati ve) 07/05/20 15:00 Urine Bilirubin 1+ (Negative) H 07/05/20 15:00 Urine Urobilinogen 4 mg/dL (Negative ) H 07/05/20 15:00 Ur Leukocyte Isabel ase Negative (Negati ve) 07/05/20 15:00 Urine RBC 0-4 /hpf (0-2) H 07/05/20 15:00 Urine WBC 0-4 /hpf (0-5) H 07/05/20 15:00 Ur Squamous Epith Cells 0-4 /hpf (0-5) H 07/05/20 15:00 Amorphous Sediment 1+ /hpf 07/05/20 15:00 Urine Bacteria Trace /hpf (NONE) 07/05/20 15:00 Hyaline Casts 15-25 /lpf H 07/05/20 15:00 Ur Random Sodium 45 mmol/L 07/05/20 21:22 Urine Creatinine 19 mg/dL (39-259) L 07/05/20 21:22 Ethyl Alcohol < 10 mg/dL (0-10) 07/05/20 15:00 Hepatitis A IgM Ab Non-reactive (No nreactive) 07/06/20 04:30 Hep Bs Antigen Non-reactive (No nreactive) 07/06/20 04:30 Hep B Core IgM Ab Non-reactive (No nreactive) 07/06/20 04:30 Hepatitis C Antibo dy Non-reactive (No nreactive) 07/06/20 04:30 Influenza Type A A g Negative (Negati ve) 07/05/20 15:20 Influenza Type B A g Negative (Negati ve) 07/05/20 15:20 SARS-CoV-2 Ag (Rap id) Negative (Negati ve) 07/05/20 15:20 Echocardiogram revealed Diffuse hypokinesia of the left ventricle with ejection fraction of around 30%. Moderate left ventricular hypertrophy. Dilated right ventricle with a severe diffuse hypokinesia, features suggesting ventricular pressure overload Mildly dilated right atrium. Could not estimate the PA pressure because of the poor Doppler signals Minimally thickened aortic and mitral valves. There is no pericardial effusion. There are no intracardiac masses. No previous studies available for comparison EKG revealed Sinus rhythm with occasional ventricular and supraventricular ectopics. Features of biatrial enlargement. Left axis deviation. Right ventricular conduction delay Micro: Micro: Microbiology 07/05/20 17:00 Gram Stain - Final Sputum - Endotrac heal Tube Aspirate 07/05/20 15:10 Blood Culture - Pr eliminary Blood [facility] 07/05/20 15:00 Blood Culture - Pr eliminary Blood [facility] A&P Assessment and plan (1) Elevated troponin: The etiology of the elevated troponin T is not clear. The EKG does not show any acute ischemic changes. The severe RV dysfunction, LV dysfunction , acute renal failure, etc. are contributing factors. Most likely it is a type II MA. In view of the history of peripheral artery disease, a non-ST elevation myocardial infarction cannot be excluded. Status: Acute (2) Acute cor pulmonale: Most likely, this patient may have an acute pulmonary embolism. He seems to have all the predisposing factors. Most likely this might have contributed to the current clinical condition. Currently the patient is on a low-dose of Levophed. May consider adding IV Dobutrex 5 mics per KG per minute to improve the cardiac output, if there is any worsening of the hemodynamic status. Status: Acute (3) Cardiomyopathy: It is not clear as to how long this patient had LV dysfunction. He has not had any recent echocardiogram. This need to be closely monitored. Status: Acute Qualifiers: Cardiomyopathy type: unspecified Qualified Code(s): I42.9 - Cardiomyopathy, unspecified (4) Acute renal failure: Right ventricular failure, LV dysfunction, hypoxia, hypotension, etc. are contributing factors. Status: Acute Qualifiers: Acute renal failure type: with acute tubular necrosis Qualified Code(s): N17.0 - Acute kidney failure with tubular necrosis (5) Acute respiratory failure with hypoxia and hypercapnia: Patient is on the ventilator . May continue on the treatment measures. Status: Acute (6) Cellulitis: ? Chronic Status: Acute Qualifiers: Site of cellulitis: extremity Site of cellulitis of extremity: lower ex tremity Laterality: unspecified laterality Qualified Code(s): L03.119 - Cellulitis of unspecified part of limb Additional A&P Information I agree with the IV heparin. Also may be started on p.o. aspirin through NG tube. Discussed with Dr. Aragon This patient may benefit from selective thrombolysis/thrombectomy, if the pulmonary embolism is confirmed. The feasibility of doing a CT angiogram need to be discussed with the nephrology service. To be appropriate to get Dr. Kam, patient's peoplesoft financials also get involved in his care. Patient is a current cardiovascular status was discussed with his . I answered her questions to her satisfaction. Consult Attestations Medical Necessity Statement: Patient's condition is critical. He requires close monitoring in the ICU Coding Level of Care Code Acute Production Sorter for Chg Fwd History Comprehensive Medical Decision Making High Complexity Diagnoses Elevated troponin R77.8 Acute cor pulmonale I26.09 Cardiomyopathy I42.9 Cardiomyopathy type: unspecified Acute renal failure N17.0 Acute renal failure type: with acute tubular necrosis Acute respiratory failure with hypoxia and hypercapnia J96.01; J96.02 Cellulitis L03.119 Site of cellulitis: extremity Site of cellulitis of extremity: lower extremity Laterality: unspecified laterality Time Spent (min) 65
[2020-07-06] MEDS: FUROsemide 10 mg/mL SDV 4mL 40 MG IVP (15:45)
[2020-07-06 18:28] LABS: Partial Thromboplastin Time 57.3 SECONDS (23.9-36.7)
--- NOTE | 2020-07-06 18:58 | PC.NURSE ---
[address] Gan, tele-nephrology, reported potassium level. Discussed swelling, I&O, and plan of care. Orders for replacement and to decrease IVF. 1110 Reported Mg level to Dr. Malagon. Orders for replacement. 1145 Called lab for PTT draw. [address] Malagon to clarify orders for VQ scan, unable to be done because patient is on the ventilator. [address] with RT and DAVID Cisneros. Patient tolerated well.
--- NOTE | 2020-07-06 19:02 | USCV_ITS ---
Jaime Olivares Age: 70 Gender: M : 1950 Exam Date: 07/06/2020 05:56 Ordering Phys: Oliverio Malagon MD Technologist: Yeison Navas [place] [facility] [place]: Cardiomegaly BP: 91 / 63 HR: 74 Rhythm: Sinus Technical Quality: Technically difficult study - limited windows MEASUREMENTS (Male / Female) Normal Values 2D ECHO LV Diastolic Diameter PLAX 4.1 cm 4.2 - 5.9 / 3.9 - 5.3 cm LV Systolic Diameter PLAX 3.5 cm IVS Diastolic Thickness 1.8 cm 0.6 - 1.0 / 0.6 - 0.9 cm IVS Systolic Thickness 2.0 cm LVPW Diastolic Thickness 1.8 cm 0.6 - 1.0 / 0.6 - 0.9 cm LVPW Systolic Thickness 2.3 cm LVOT Diameter 2.0 cm LV Ejection Fraction 2D Teich 28.4 % LA Diameter 3.6 cm Aorta at Sinotubular Diameter 3.4 cm M-MODE LV Diastolic Diameter MM 3.8 cm 4.2 - 5.9 / 3.9 - 5.3 cm LV Systolic Diameter MM 2.8 cm LV Ejection Fraction MM Teich 52.3 % IVS Diastolic Thickness MM 2.1 cm 0.6 - 1.0 / 0.6 - 0.9 cm IVS Systolic Thickness MM 2.3 cm LVPW Diastolic Thickness MM 2.3 cm 0.6 - 1.0 / 0.6 - 0.9 cm LVPW Systolic Thickness MM 2.5 cm Aortic Annulus Diameter 3.9 cm LA Ao Ratio MM 1.0 MV E Point Septal Separation 0.9 cm DOPPLER AV Peak Velocity 102.0 cm/s LVOT Peak Velocity 101.0 cm/s AV Area Cont Eq vti 3.2 cm squared AV Area Cont Eq pk 3.2 cm squared MV Area PHT 4.8 cm squared Mitral E to A Ratio 0.5 MV E' Velocity 16.8 cm/s Mitral E to MV E' Ratio 6.5 Mitral E to LV E' Lateral Ratio 4.7 Mitral E to LV E' Septal Ratio 10.9 TR Peak Velocity 249.0 cm/s TR Peak Gradient 24.8 mmHg TV Peak E Velocity 72.0 cm/s Right Atrial Pressure 15.0 mmHg Pulmonary Artery Systolic Pressu 39.8 mmHg PV Peak Velocity 42.0 cm/s FINDINGS Left Ventricle Moderate concentric left renal hypertrophy with diminished ejection fraction of around 35%. Diffuse hypokinesia left ventrinormal left ventricular cavity size. The interventricular septum appears to be flattened Right Ventricle Mildly dilated left ventricle with markedly diminished ejection fraction Right Atrium Mildly increased right atrial size. Left Atrium Normal left atrial size. Mitral Valve No gross abnormalities noted Aortic Valve Thickened aortic valve. Tricuspid Valve No gross abnormalities noted Pulmonic Valve No gross abnormalities noted Pericardium No pericardial effusion. Aorta Aortic root, measuring 4.3 cm at the level of the sinuses.plaque seen in the ascending aorta. CONCLUSIONS Diffuse hypokinesia of the left ventricle with ejection fraction of around 30%. Moderate left ventricular hypertrophy. Dilated right ventricle with a severe diffuse hypokinesia, features suggesting ventricular pressure overload Mildly dilated right atrium. Could not estimate the PA pressure because of the poor Doppler signals Minimally thickened aortic and mitral valves. There is no pericardial effusion. There are no intracardiac masses. No previous studies available for comparison Dr Lilly Rowell MD FACC (Electronically Signed) Final Date: 06 July 2020 13:29 S
--- NOTE | 2020-07-06 19:57 | PC.NURSE ---
Patient resting in bed with eyes closed. Patient is intubated, tube 8.0 and 24 @ the lip. No s/s of distress. V/S are all WNL. Call light within reach. Continue care.
[2020-07-06 20:48] LABS: Anion Gap 13.3 (5-19); Chloride 86 mmol/L (98-107); Creatinine Clr Calc Pharmacy 69.9097; Glomerular Filtration Rate 50.4 mL/min (90-130); Glucose 161 mg/dL (65-115); Osmolality Calculated 319 mOsm/kg (285-295); Potassium 3.3 mmol/L (3.5-5.1); Sodium 140 mmol/L (136-145)
[2020-07-06 20:50] LABS: Blood Urea Nitrogen 85 mg/dL (8-23); Carbon Dioxide 44 mmol/L (22-29)
[2020-07-06 20:58] LABS: Vancomycin Random 6.5 ug/mL (20.0-40.0)
--- NOTE | 2020-07-06 23:06 | PC.NURSE ---
PAIN PUMP: Patients called to check on patients condition, and pain pump inserted in patients stomach approximately 15 years ago, but pain medication was refilled approximately 5 days before this hospital stay. Patients states morphine and a muscle relaxer is what is in the pump.
--- NOTE | 2020-07-06 23:37 | PC.NURSE ---
Addendum entered by Ron Perez RN 07/06/20 23:40: Verified wasted medication according to documented amount per Radha Grossman RN Original Note: Waste: This nurse wasted 6.2 mL of fentanyl witnessed by Ron Perez RN.
[2020-07-07] VITALS (90 sets, daily range): BP systolic 71–138; BP diastolic 42–78; PULSE 69–105; RESP 12–16; TEMP 36.4–37.9; O2SAT 91–97
[2020-07-07] MEDS: ipratropium-albuterol 3 mL Neb INHALATION ×6 (00:56→20:13)
[2020-07-07] MEDS: FUROsemide 10 mg/mL SDV 4mL 40 MG IVP (01:45)
[2020-07-07 03:26] LABS: Basophils % 0.1 %; Hematocrit 49.6 % (42.0-52.0); Hemoglobin 15.1 g/dL (11.7-16.6); Lymphocytes # 0.2 10^3/uL (0.8-4.8); Lymphocytes % 1.2 %; Mean Corpuscular HGB Conc 30.4 g/dL (30.0-36.0); Mean Corpuscular Hemoglobin 28.2 pg (28.0-34.0); Mean Corpuscular Volume 92.5 fL (80-94); Mean Platelet Volume 10.5 fL (7.4-10.4); Monocytes # 0.3 10^3/uL (0.2-0.9); Monocytes % 1.9 %; Neutrophils % 96.4 %; Nucleated Red Blood Cells % 0.1 %; Platelet Count 161 10^3/cmm (130-400); Red Blood Count 5.36 10^6/uL (4.1-5.3); Red Cell Distribution Width 14.4 % (12.1-15.1); White Blood Count 13.9 10^3/uL (4.0-10.0)
[2020-07-07 04:07] LABS: Alanine Aminotransferase 211 U/L (0-41); Albumin Level 3.2 g/dL (3.5-5.2); Alkaline Phosphatase 158 IU/L (40-130); Anion Gap 14.2 (5-19); Aspartate Amino Transferase 44 U/L (0-40); Blood Urea Nitrogen 76 mg/dL (8-23); Chloride 84 mmol/L (98-107); Creatine Phosphokinase 117 U/L (39-308); Globulin 3.2 g/dL (1.3-4.6); Glomerular Filtration Rate 60.2 mL/min (90-130); Glucose 213 mg/dL (65-115); Magnesium 1.6 mg/dL (1.7-2.3); Osmolality Calculated 311 mOsm/kg (285-295); Phosphorus 4.3 mg/dL (2.5-4.5); Potassium 3.2 mmol/L (3.5-5.1); Sodium 136 mmol/L (136-145); Total Bilirubin 2.1 mg/dL (0.15-1.2); Total Protein 6.4 g/dL (6.6-8.7)
[2020-07-07 04:16] LABS: Carbon Dioxide 41 mmol/L (22-29)
[2020-07-07] MEDS: famotidine 20 mg/2 mL INJ IVP ×2 (05:00→17:56)
[2020-07-07 05:05] LABS: ABG PH Result 7.44 (7.35-7.45); Arterial Blood Gas Hematocrit 47.3 % (42-52); Base Excess ABG 20.8 mmol/L (-2.0-2.0); Blood Gas Allen Test Pos; Blood Gas Sample Site Radial, right; Blood Gas Sample Type Arterial; HCO3 ABG 50.1 mmol/L (22-26); Oxygen Device VENT; PO2 ABG 79.1 mmHg (80.0-100.0)
[2020-07-07 05:16] LABS: ABG PCO2 74.1 mmHg (35-45)
[2020-07-07] MEDS: budesonide 0.5 mg/2 mL Neb INHALATION ×2 (08:28→20:13)
--- NOTE | 2020-07-07 08:31 | PC.NURSE ---
Pt Versed stopped in preparation for sedation vacation and to check mentation. Currently pt does not respond to sternal rub.
[2020-07-07] MEDS: heparin drip 25,000 UNIT/500 ML PREMIX 27 UNIT IV ×2 (08:40→11:37)
--- NOTE | 2020-07-07 10:06 | PM.PN ---
Subjective Subjective: Interval history: remains intubated Medications: Reviewed: Yes Vitals/I&O/Wt Last Vital Signs Temp 99.4 F 07/07/20 04:00 Pulse 86 07/07/20 08:40 Resp 14 07/07/20 09:21 BP 96/57 07/07/20 08:00 Pulse Ox 95 07/07/20 08:30 07/06/20 07/07/20 07/07/20 22:59 06:59 14:59 Intake Total 90.6 / 1639.417 500.625 / 2140.042 500 / 500 Output Total 2900 / 4150 1850 / 6000 Balance -2809.4 / -2510.583 -1349.375 / -3859.958 500 / 500 Weight last 48 hrs Weight 113.2 kg Weight 117.934 kg Weight 122.47 kg Physical Exam Urinary Catheter Management^: [place]: Cath Placed During This Visit: yes Reason for Continuing Indwelling Catheter: Accurate Measurement of Urinary Output in Critically Ill Patients Urinary Catheter Date of Insertion: 07/05/20 Urinary Catheter Time of Insertion: 15:50 Data : 07/07/20 03:07 07/07/20 03:07 Other Labs: CK 117, Ca 9, Mg 1.6, phos 4.3 Micro: Microbiology 07/05/20 15:10 Blood Culture - Preliminary Blood NEGATIVE TO DATE 07/05/20 15:00 Blood Culture - Preliminary Blood NEGATIVE TO DATE 07/05/20 17:00 Gram Stain - Final Sputum - Endotracheal Tube Aspirate Echo: Radiologist's impression: Diffuse hypokinesia of the left ventricle with ejection fraction of around 30%. Moderate left ventricular hypertrophy. Dilated right ventricle with a severe diffuse hypokinesia, features suggesting ventricular pressure overload Mildly dilated right atrium. Could not estimate the PA pressure because of the poor Doppler signals Minimally thickened aortic and mitral valves. There is no pericardial effusion. There are no intracardiac masses. No previous studies available for comparison CT Abd/Pel: Radiologist's impression: Adrenal glands: Stable 27 mm left adrenal adenoma. No follow-up recommended. Kidneys and ureters: Stable simple cyst superior pole left kidney measuring approximately 15 mm in maximum diameter. No follow-up recommended. No visible hydronephrosis or perinephric fluid bilaterally. No very tiny focus of nonobstructing calyceal nephrolithiasis equator left kidney under 2 mm. ABG Interpretation 1: 7.44/74/ AC 12, 50% A&P Additional A&P Information 1. Acute kidney injury, improving. Excellent urine output. 2. Hyponatremia resolved 3. Hypochloremic metabolic alkalosis, hypokalemia 4. Acute hypercarbic respiratory failure, history of O2 dependent COPD 5. Liver function test abnormalities 6. Mild rhabdomyolysis, resolved 7. Biventricular heart failure Rec: Aggressively replace KCl, replace Mg, hold diuretics for now. Increase respiratory rate if possible to reduce pCO2 Attestations Medical Necessity Statement*: critically ill in ICU Time Spent in Patient Care: 16 - 35 minutes Coding Level of Care Code Acute Co Supervisor Grounds [employer] Landscape for Seymour Whitfield
--- NOTE | 2020-07-07 10:14 | XRR_ITS ---
PROCEDURE INFORMATION: Exam: XR Chest, 1 View Exam date and time: 07/07/2020 10:34 AM Age: 70 years old Clinical indication: Device placement; Ett placement (vent status); Additional info: On vent TECHNIQUE: Imaging protocol: XR of the chest Views: 1 view. COMPARISON: CR XR chest 1V portable [id number] 07/06/2020 1:26 PM FINDINGS: Tubes, catheters and devices: Endotracheal tube tip again at the level of the clavicular heads approximately 10 cm cephalad to the emily. Right upper extremity PICC with tip overlying the mid to distal SVC. Enteric tube tip near the gastric fundus. Lungs/pleura: Pulmonary vascular congestion with small left effusion and associated atelectasis redemonstrated. Question trace right effusion. No new consolidation. No visible pneumothorax. Heart/Mediastinum: Cardiac silhouette upper normal. Normal mediastinal contours. Bones/joints: No acute findings appreciated. Old right rib fractures redemonstrated. XR/XR chest 1V portable [id number] IMPRESSION: 1. No significant change in position of lines and tubes. Endotracheal tube tip approximately 10 cm cephalad to the emily. 2. Evidence of mild pulmonary edema and small left effusion with atelectasis.
[2020-07-07 11:05] LABS: Basophils % 0.1 %; Hematocrit 45.7 % (42.0-52.0); Hemoglobin 14.6 g/dL (11.7-16.6); Lymphocytes # 0.3 10^3/uL (0.8-4.8); Mean Corpuscular HGB Conc 31.9 g/dL (30.0-36.0); Mean Corpuscular Hemoglobin 28.4 pg (28.0-34.0); Mean Corpuscular Volume 88.9 fL (80-94); Mean Platelet Volume 11.1 fL (7.4-10.4); Monocytes # 0.5 10^3/uL (0.2-0.9); Monocytes % 3.4 %; Neutrophils # 13.63 10^3/uL (1.8-7.7); Nucleated Red Blood Cells % 0.1 %; Platelet Count 169 10^3/cmm (130-400); Red Blood Count 5.14 10^6/uL (4.1-5.3); Red Cell Distribution Width 14.5 % (12.1-15.1); White Blood Count 14.5 10^3/uL (4.0-10.0)
[2020-07-07 11:24] LABS: Partial Thromboplastin Time 80.1 SECONDS (23.9-36.7)
[2020-07-07] MEDS: potassium chloride premix 100 ML 25 MEQ IV ×2 (11:37→17:56)
[2020-07-07] MEDS: magnesium sulfate premix 2 GM/50 ML PIGGYBACK IV (11:38)
--- NOTE | 2020-07-07 11:53 | PC.NURSE ---
med delay-casualty underwriter did not realize a new order was put in for pt to receive mag or k+ until it was already 1 hour late do to other pt care.
[2020-07-07 13:42] LABS: Alveolar-Arterial Oxygen Gradi 27.3 mmHg (5-10); Arterial Blood Gas Hematocrit 45.9 % (42-52); Base Excess ABG 23.3 mmol/L (-2.0-2.0); Blood Gas Allen Test Pos; Blood Gas Operator Identificat CAK; Blood Gas Sample Site Radial, left; Blood Gas Sample Type Arterial; Carboxyhemoglobin 1.5 %THgb (0.4-20.1); HCO3 ABG 51.4 mmol/L (22-26); HGB O2 Sat 93.2 % (95-100); Ionized Calcium Level - ABG 1.2 mmol/L (1.1-1.4); Methemoglobin 0.2 % (0.4-1.5); Oxygen Device VENT; Oxygen Saturation ABG 94.8; Potassium Level - ABG 3.3 mmol/L (3.5-5.0)
[2020-07-07 13:45] LABS: ABG PCO2 66.6 mmHg (35-45)
--- NOTE | 2020-07-07 13:55 | PC.NURSE ---
Pressure injury noted to left bottom, lateral foot. Area is very boggy and appears to be blistered. Heels have been floated except for the last turn to the left at 1200. Turned again at this time and elevated feet, floated heels at this time.
--- NOTE | 2020-07-07 14:52 | PC.NURSE ---
Pt continues to not respond to verbal stimuli. Sedation remains off.
--- NOTE | 2020-07-07 15:31 | PM.PN ---
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 History was obtained from review of records and discussion with ER staff. Patient was apparently found to have oxygen saturation in mid 70s with increasing o2 requirement. Upon arrival to ER he was placed on BiPAP. Initial laboratory work up showed a WBC of 11.1, hemoglobin of 14.0, hematocrit 44.5 and platelet count of 183. Sodium 125, potassium 4.6, chloride 77, bicarb 32, BUN 136 and creatinine of 3.0. Lactic acid of 2.0. AST of 76, ALT of 397 and alkaline phosphatase of 186. Troponin T 474 - > 480.6, Delta troponin T of 6.6. ProBNP of 20,006. INR of 1.65, D-dimer of 2.84. Initial ABG on BiPAP of 7.33, PCO2 of 72.8, Po2 of 89.6, bicarb of 37.9. Patient was not tolerating Bipap due to agitation. He was subsequently intubated on placed on mechanical ventilation. Was noted to have hypotension as well after sedative medications for which he was started on Levophed. He was placed on versed and fentanyl for sedation. Imaging studies included a chest x-ray which showed cardiomegaly, pulmonary vascularity appeared normal with no evidence of pneumothorax or infiltrates. Head CT was also ordered and pending at the time of my eval. In addition to above patient was also given Lasix 40 mg IV x 1 and Levaquin 750 mg IV x 1. Upon admission he was started on broad spectrum antibiotics for suspected R>L cellulitis however patient did have underlying dependent rubra with chronic lymphedema/wounds. Blood cultures were drawn. Due to elevated troponin the trend of which was not indicative of acs he was started on heparin gtt. Also due to elevated d-dimer with inablity to entirely rule out acute PE however given the decrease of hypoxemia with out any chest x-ray findings of pulmonary edema possiblity of acute PE was high. Nephrology was also consulted due to worsening acute renal function. He was given lasix in ER however appeared for me intravascularly dry. Was started on IVF. He continued to require levophed to mantain MAP of greater than 65. 07/06/20 Overnight patient remained intubated on mechanical vent. He was started on broad spectrum antibiotics for suspected R>L cellulitis however patient did have underlying dependent rubra with chronic lymphedema/wounds. Blood cultures were drawn. Due to elevated troponin the trend of which was not indicative of acs he was started on heparin gtt. Also due to elevated d-dimer with inablity to entirely rule out acute PE however given the decrease of hypoxemia with out any chest x-ray findings of pulmonary edema possiblity of acute PE was high. Nephrology was also consulted due to worsening acute renal function. He was given lasix in ER however was started on IV fluids after seen by Nephrology. 07/07/2020 Patient was started on IV Lasix last evening. Noted to have 6 L urine output. Was weaned off her sed and transition to Precedex. Of 2 sets remained stable. Continue to require IV Levophed. Medications: Reviewed: Yes Vitals/I&O/Wt Last Vital Signs Temp 99.6 F 07/07/20 20:00 Pulse 75 07/07/20 20:15 Resp 12 07/07/20 20:15 BP 100/60 07/07/20 20:15 Pulse Ox 93 07/07/20 20:15 07/07/20 07/07/20 07/07/20 06:59 14:59 22:59 Intake Total 600.625 / 2240.042 799.65 / 799.65 249.905 / 1049.555 Output Total 1850 / 6000 600 / 600 Balance -1249.375 / -3759.958 199.65 / 199.65 249.905 / 449.555 Weight last 48 hrs Weight 113.2 kg Weight 117.934 kg Physical Exam Narrative: EXAM NARRATIVE: General : Intubated on MV HEENT - ET tube at 22 Chest - vented sounds CVS : Distant heart sounds ABD ; Non-distended Ext : Bilateral LE with chronic wound, dependent rubra L>R Neuro: unable to assess Urinary Catheter Management^: [place]: Cath Placed During This Visit: yes Reason for Continuing Indwelling Catheter: Accurate Measurement of Urinary Output in Critically Ill Patients Urinary Catheter Date of Insertion: 07/05/20 Urinary Catheter Time of Insertion: 15:50 Data : 07/07/20 10:20 07/07/20 18:00 Micro: Microbiology 07/05/20 17:00 Gram Stain - Final Sputum - Endotracheal Tube Aspirate Sputum Culture - Preliminary A&P Assessment and plan (1) Acute respiratory failure with hypoxia and hypercapnia: Status: Acute (2) Acute renal failure: Status: Acute Qualifiers: Acute renal failure type: with acute tubular necrosis Qualified Code(s): N17.0 - Acute kidney failure with tubular necrosis (3) Cellulitis: Status: Acute Qualifiers: Site of cellulitis: extremity Site of cellulitis of extremity: lower extremity Laterality: unspecified laterality Qualified Code(s): L03.119 - Cellulitis of unspecified part of limb (4) Chronic respiratory failure: Status: Acute (5) PAD (peripheral artery disease): Status: Acute (6) Mixed hyperlipidemia: Status: Acute (7) Lesion of true vocal cord: Status: Acute (8) Chronic bilateral low back pain: Status: Chronic Qualifiers: Sciatica presence: with sciatica Sciatica laterality: bilateral sciatica Qualified Code(s): M54.42 - Lumbago with sciatica, left side; M54.41 - Lumbago with sciatica, right side; G89.29 - Other chronic pain (9) Lower extremity edema: Status: Chronic (10) Transaminitis: Status: Acute (11) COPD (chronic obstructive pulmonary disease): Status: Chronic Qualifiers: COPD type: unspecified COPD Qualified Code(s): J44.9 - Chronic obstructive pulmonary disease, unspecified (12) Hyponatremia: Status: Acute Acute on chronic hypoxemic hypercapnia respiratory failure - Intubated on MV - Fentanyl at 100 mcg/hr - D/c versed - Started on precedex - Chest x-ray in am - Duoneb q6r scheduled - Pulmicort 0.5 mg INH BID - Solu-medrol 40 mg IV q8hr - Consider pulmonary consult 02/Steroid dependent COPD exacerbation - Management as noted above - Low suspicion of underlying bacterial pneumonia - Empirically on abx - Primexin - May consider pulmonary consult Acute systolic HF with cor pulmonale - Cardiomegaly noted on chest x-ray - Increasing LE edema - Lasix 40 mg IV BID ordered - held by nephro - ECHO - EF 45, with severe RV dysfunction - ProBMP - - Net negative 4L balance - Replace Lytes Non-ST elevation OH - Troponin 474 ->480-> 426 - On IV heparin gtt - Cardiology consulted - ECHO pending Acute renal failure - Resolved - Creatinine 3.0 > 2.0 - > 1.2 - CK 832 - 6L output overnight - BMP in am - Nephrology on board Hypokalemia, Hypomagnesemia - K 3.2, Mg.1.5 - Replaced - BMP in am - Mg level in am Elevated D-Dimer - Possible PE - Heparin gtt - If Cr Remains stable - Will get CTA chest Elevated LFTs - Improving - Etiology likely due to right heart failure/passive congestion - AST 76-59 - ALT 397-257 - Hepatitis panel negative - CT abd/pelvis - stable Additional medical History Vocal cord malignancy s/p Chemo-radiation Hx of Colon cancer s/p p.colectomy Obstructive sleep apnea Peripheral arterial disease Polyneuropathy Gasteroesophageal reflux disease disease DVT ppx on heparin gtt Attestations Medical Necessity Statement*: Continue hospitalization for management of hypoxic respiratory failure requiring mechanical ventilation in fluid over requiring diuresis Time Spent in Patient Care: Greater than 35 minutes (>than 50% of time spent in counselling and/or direct pt care on unit). Critical Care Time: Critical Care Time (min): 75 Coding Level of Care Code Acute Senior Oracle Adf Developer for g Fwd Diagnoses Acute respiratory failure with hypoxia and hypercapnia J96.01; J96.02 Acute renal failure N17.0 Acute renal failure type: with acute tubular necrosis Cellulitis L03.119 Site of cellulitis: extremity Site of cellulitis of extremity: lower extremity Laterality: unspecified laterality Chronic respiratory failure J96.10 PAD (peripheral artery disease) I73.9 Mixed hyperlipidemia E78.2 Lesion of true vocal cord J38.3 Chronic bilateral low back pain M54.42; M54.41; G89.29 Sciatica presence: with sciatica Sciatica laterality: bilateral sciatica Lower extremity edema R60.0 Transaminitis R74.01 COPD (chronic obstructive pulmonary disease) J44.9 COPD type: unspecified COPD Hyponatremia E87.1
--- NOTE | 2020-07-07 17:13 | P.PN_ITS ---
Subjective Subjective: Interval history: Covid test is pending, letter stable. Vitals/I&O/Wt Last Vital Signs Temp 100.2 F H 07/07/20 17:04 Pulse 84 07/07/20 16:15 Resp 12 07/07/20 15:25 BP 112/61 07/07/20 16:15 Pulse Ox 93 07/07/20 16:15 07/07/20 07/07/20 07/07/20 06:59 14:59 22:59 Intake Total 600.625 / 2240.042 799.65 / 799.65 Output Total 1850 / 6000 600 / 600 Balance -1249.375 / -3759.958 199.65 / 199.65 Weight last 48 hrs Weight 249 lb 9 oz Weight 260 lb Physical Exam Narrative: EXAM NARRATIVE: Please note that I have not examined the patient since he is on Covid precautions. Rounding over the patient in the ICU with the nurse and to my colleagues note and labs Urinary Catheter Management^: [place]: Cath Placed During This Visit: yes Reason for Continuing Indwelling Catheter: Accurate Measurement of Urinary Ou tput in Critically Ill Patients Urinary Catheter Date of Insertion: 07/05/20 Urinary Catheter Time of Insertion: 15:50 Data : 07/07/20 10:20 07/07/20 03:07 Micro: Microbiology 07/05/20 17:00 Gram Stain - Final Sputum - Endotracheal Tube Aspirate Sputum Culture - Preliminary 07/05/20 15:10 Blood Culture - Preliminary Blood NEGATIVE TO DATE 07/05/20 15:00 Blood Culture - Preliminary Blood NEGATIVE TO DATE A&P Assessment and plan (1) Cardiomyopathy: Appear to be stable. Biventricular failure with severely depressed LV function and RV function. Currently stable intubated. Continue current regimen. Status: Acute Qualifiers: Cardiomyopathy type: unspecified Qualified Code(s): I42.9 - Cardiomyopathy, unspecified (2) Acute cor pulmonale: Most likely COPD/pulmonary patient is on anticoagulation and pulmonary on board Status: Acute (3) Acute renal failure: Improving. Nephrology on board Status: Acute Qualifiers: Acute renal failure type: with acute tubular necrosis Qualified Code(s): N17.0 - Acute kidney failure with tubular necrosis Attestations Medical Necessity Statement*: Require continuation hospitalization for above defined care. Coding Level of Care Code Established Pt Acute Regional Sales Consultant for Chg Fwd Patient Type Established History Detailed Medical Decision Making High Complexity Diagnoses Cardiomyopathy I42.9 Cardiomyopathy type: unspecified Acute cor pulmonale I26.09 Acute renal failure N17.0 Acute renal failure type: with acute tubular necrosis
[2020-07-07 17:19] LABS: Quest SARS-CoV-2 RNA NOT DETECTED (NOT DETECTED)
[2020-07-07 18:38] LABS: Partial Thromboplastin Time 56.9 SECONDS (23.9-36.7)
[2020-07-07 18:46] LABS: Anion Gap 7.5 (5-19); Blood Urea Nitrogen 72 mg/dL (8-23); Calcium 9.3 mg/dL (8.5-10.5); Chloride 88 mmol/L (98-107); Glomerular Filtration Rate 66.6 mL/min (90-130); Glucose 193 mg/dL (65-115); Osmolality Calculated 316 mOsm/kg (285-295); Potassium 3.5 mmol/L (3.5-5.1); Sodium 140 mmol/L (136-145)
[2020-07-07 18:51] LABS: Carbon Dioxide 48 mmol/L (22-29)
--- NOTE | 2020-07-07 18:52 | PC.NURSE ---
Pt and Dr. Tan notified that pt was negative for covid.
[2020-07-08] VITALS (96 sets, daily range): BP systolic 89–132; BP diastolic 47–84; PULSE 55–81; RESP 12; TEMP 36.4–36.9; O2SAT 88–97
[2020-07-08] MEDS: ipratropium-albuterol 3 mL Neb INHALATION ×7 (00:05→23:26)
[2020-07-08 04:42] LABS: Basophils % 0.1 %; Eosinophils % 0.1 %; Hematocrit 49.5 % (42.0-52.0); Hemoglobin 14.8 g/dL (11.7-16.6); Lymphocytes # 0.5 10^3/uL (0.8-4.8); Lymphocytes % 2.7 %; Mean Corpuscular HGB Conc 29.9 g/dL (30.0-36.0); Mean Corpuscular Hemoglobin 28.4 pg (28.0-34.0); Mean Corpuscular Volume 94.8 fL (80-94); Mean Platelet Volume 10.9 fL (7.4-10.4); Monocytes # 0.7 10^3/uL (0.2-0.9); Monocytes % 4.2 %; Neutrophils # 15.49 10^3/uL (1.8-7.7); Neutrophils % 92.3 %; Nucleated Red Blood Cells % 0 %; Platelet Count 153 10^3/cmm (130-400); Red Blood Count 5.22 10^6/uL (4.1-5.3); Red Cell Distribution Width 14.6 % (12.1-15.1); White Blood Count 16.8 10^3/uL (4.0-10.0)
[2020-07-08] MEDS: famotidine 20 mg/2 mL INJ IVP ×2 (05:02→18:16)
[2020-07-08 05:24] LABS: Procalcitonin 0.13 ng/mL (0-0.5)
[2020-07-08 05:36] LABS: Alanine Aminotransferase 126 U/L (0-41); Albumin Level 2.9 g/dL (3.5-5.2); Alkaline Phosphatase 118 IU/L (40-130); Anion Gap 10.4 (5-19); Aspartate Amino Transferase 31 U/L (0-40); Blood Urea Nitrogen 69 mg/dL (8-23); Calcium 9.4 mg/dL (8.5-10.5); Chloride 91 mmol/L (98-107); Globulin 3.3 g/dL (1.3-4.6); Glomerular Filtration Rate 74.3 mL/min (90-130); Glucose 203 mg/dL (65-115); Magnesium 2.1 mg/dL (1.7-2.3); Osmolality Calculated 322 mOsm/kg (285-295); Phosphorus 2.4 mg/dL (2.5-4.5); Potassium 3.4 mmol/L (3.5-5.1); Sodium 143 mmol/L (136-145); Total Bilirubin 1.6 mg/dL (0.15-1.2); Total Protein 6.2 g/dL (6.6-8.7)
--- NOTE | 2020-07-08 06:05 | PC.NURSE ---
Uneventful Shift: Patient resting in bed at this time, no s/s of distress or pain. Levo currently paused to try to wean patient completely off medication if tolerated. Continue care.
[2020-07-08 06:09] LABS: Carbon Dioxide 45 mmol/L (22-29)
[2020-07-08 06:11] LABS: ABG PCO2 59.5 mmHg (35-45); ABG PH Result 7.55 (7.35-7.45); Base Excess ABG 24.8 mmol/L (-2.0-2.0); Blood Gas Allen Test Pos; Blood Gas Operator Identificat JB; Blood Gas Sample Site Radial, right; Blood Gas Sample Type Arterial; HCO3 ABG 51.8 mmol/L (22-26); Oxygen Device VENT; PO2 ABG 79.6 mmHg (80.0-100.0)
[2020-07-08] MEDS: heparin drip 25,000 UNIT/500 ML PREMIX 25 UNIT IV (06:14)
--- NOTE | 2020-07-08 06:15 | PC.NURSE ---
Patient did not tolerate Levo being paused and MAP dropped below 60. Levo currently back on and running at 1 mcg/min. Continue care.
--- NOTE | 2020-07-08 06:16 | PC.NURSE ---
Critical CO2 level called from lab and reported to Dr. Whiting, no new orders at this time, due to results being an expected finding from previous labs.
--- NOTE | 2020-07-08 07:00 | XRR_ITS ---
PROCEDURE INFORMATION: Exam: XR Chest, 1 View Exam date and time: 07/08/2020 4:04 AM Age: 70 years old Clinical indication: Shortness of breath; Additional info: Respiratory failure TECHNIQUE: Imaging protocol: XR of the chest Views: 1 view. COMPARISON: CR (CHEST, ) 07/07/2020 10:34 AM FINDINGS: Tubes, catheters and devices: There is stable position of life support tubing. Lungs: See Pleural space finding. Pleural space: The hemidiaphragms are obscured likely secondary to small bilateral pleural effusions. There are some linear opacities present predominately in the left lower hemithorax likely representing atelectasis. Heart/Mediastinum: Unremarkable. No cardiomegaly. Bones/joints: There is evidence of healed right rib fractures. XR/XR chest 1V portable [id number] IMPRESSION: 1. There are small bilateral pleural effusions, left slightly larger than right. 2. Linear opacities are seen in the left lower hemithorax likely representing atelectasis.
[2020-07-08] MEDS: budesonide 0.5 mg/2 mL Neb INHALATION ×2 (07:37→20:08)
[2020-07-08 08:17] LABS: Partial Thromboplastin Time 66.6 SECONDS (23.9-36.7)
--- NOTE | 2020-07-08 10:06 | P.PN_ITS ---
Subjective Subjective: Interval history: improving, tapering off pressor and sedation Medications: Reviewed: Yes Vitals/I&O/Wt Last Vital Signs Temp 98.4 F 07/08/20 00:35 Pulse 67 07/08/20 09:00 Resp 12 07/08/20 09:07 BP 96/58 07/08/20 09:00 Pulse Ox 93 07/08/20 09:00 07/07/20 07/08/20 07/08/20 22:59 06:59 14:59 Intake Total 249.905 / 1149.555 822.31 / 1971.865 83.833 / 83.833 Output Total 1000 / 1600 400 / 400 Balance 249.905 / 549.555 -177.69 / 371.865 -316.167 / -316.167 Weight last 48 hrs Weight 113.88 kg Weight 113.2 kg Physical Exam Narrative: EXAM NARRATIVE: intubated Extremity: GENERAL: No edema Urinary Catheter Management^: [place]: Cath Placed During This Visit: yes Reason for Continuing Indwelling Catheter: Accurate Measurement of Urinary Output in Critically Ill Patients Urinary Catheter Date of Insertion: 07/05/20 Urinary Catheter Time of Insertion: 15:50 Data : 07/08/20 04:12 07/08/20 04:12 Other Labs: phos 2.9, calcium 9.4, Mg 2.1 Micro: Microbiology 07/05/20 17:00 Gram Stain - Final Sputum - Endotracheal Tube Aspirate Sputum Culture - Final CXR: Radiologist's impression: 1. There are small bilateral pleural effusions, left slightly larger than right. 2. Linear opacities are seen in the left lower hemithorax likely representing a telectasis. ABG Interpretation 1: 7.55/59.5/79.6 50%, +10 PEEP A&P Additional A&P Information 1. Acute kidney injury, improving. Excellent urine output. 2. Hypochloremic metabolic alkalosis, hypokalemia 3. Acute hypercarbic respiratory failure, history of O2 dependent COPD 4. Biventricular heart failure Rec: Continue to replace KCl, one dose diamox IV ordered. repeat bmp later today Attestations Medical Necessity Statement*: critically ill ICU Time Spent in Patient Care: 16 - 35 minutes Coding Level of Care Code Acute Operating Cost Clerk for Seymour Whitfield
--- NOTE | 2020-07-08 10:50 | CTR_ITS ---
PROCEDURE INFORMATION: Exam: CT Angiography Chest With Contrast Exam date and time: 07/08/2020 11:00 AM Age: 70 years old Clinical indication: Shortness of breath; Additional info: Suspected pe TECHNIQUE: Imaging protocol: Computed tomographic angiography of the chest with intravenous contrast. 3D rendering (Not supervised by radiologist): MIP and/or 3D reconstructed images were created by the technologist. Radiation optimization: All CT scans at this facility use at least one of these dose optimization techniques: automated exposure control; mA and/or kV adjustment per patient size (includes targeted exams where dose is matched to clinical indication); or iterative reconstruction. Contrast material: OMNI 350; Contrast volume: 95 ml; Contrast route: INTRAVENOUS (IV); COMPARISON: CTA Chest-Pulmonary Emb [id number] 10/25/2013 9:12 PM RADIATION DOSE METRICS: Total DLP (mGy-cm): 646.87 FINDINGS: Tubes, catheters and devices: The endotracheal tube tip is in the upper thoracic trachea. The feeding tube enters the stomach with the tip in the mid gastric body. Intraspinal medication catheter in the lower thoracic spine. Pulmonary arteries: Normal. No pulmonary emboli. Aorta: No aortic aneurysm. No aortic dissection. Lungs: Short segment bilateral lower lobe endobronchial occlusions. Left lower lobe partial atelectasis, sparing the superior segment. Bilateral apical pulmonary mild pleuroparenchymal scarring. Mild focal right posterior apical pulmonary paraseptal emphysema. Medial left lower lobe pulmonary calcified granulomas. Right upper lobe calcified pulmonary parenchymal granuloma. Pleural space: Small left pleural effusion. No pneumothorax. Heart: Mitral annular calcification is present. Left main, LAD, LCx and RCA calcified coronary atherosclerosis. Lymph nodes: No enlarged lymph nodes. Liver: Left lobe hepatic calcified granuloma. Gallbladder and bile ducts: The gallbladder is surgically absent, with metallic clips in the gallbladder fossa. Spleen: Calcified splenic granuloma. Adrenals: 2.8 x 2.3 cm left adrenal nodule, stable. Kidneys and ureters: Left renal upper pole 4.8 cm probable cyst. No specific followup required/recommended. Intraperitoneal space: Minimal right subdiaphragmatic ascites. Bones/joints: Multiple healed chronic right rib fractures. Chronic nonunion posterolateral right 7th rib fracture. Diffuse osteopenia. Mild chronic T8 vertebral body compression deformity. Soft tissues: Unremarkable. CT/CT angio chest PE protcl [id number] IMPRESSION: 1. No pulmonary embolism identified. 2. Short segment bilateral lower lobe probable endobronchial mucous plugging. 3. Bilateral lower lobe partial atelectasis, sparing the superior segment. 4. Small left pleural effusion. 5. Coronary atherosclerosis. 6. Left adrenal nodule, stable. 7. Prior cholecystectomy. 8. Minimal nonspecific right subdiaphragmatic ascites. COMMENTS: Consistent with the [employer]'s Incidental Findings Committee white paper (J Am Jeevan Radiol 2018): Any incidental renal lesion less than 1 cm or classified as too small to characterize, or any incidental cystic renal lesion characterized as simple-appearing, is likely benign. No follow-up imaging is recommended for these lesions per consensus recommendations based on imaging criteria. Radiation Dose CTDIVOL = (mGy): DLP = 646.87 (mGy-cm)
--- NOTE | 2020-07-08 11:03 | PC.NURSE ---
K chlor order was cancelled by Dr. Malagon. STating to only given the K phos.
[2020-07-08] MEDS: potassium phosphate (mEq K) 20 MEQ in sodium chloride 0.9% (100 ml) 104.5454 ML 27.3 MEQ IV ×2 (11:13→13:49)
[2020-07-08] MEDS: iohexol 350 mg/mL 100 mL Btl IV (11:43)
--- NOTE | 2020-07-08 12:20 | PC.NURSE ---
med delay do to prepping pt and taking him for CTA
[2020-07-08] MEDS: dexmedetomidine 400 MCG in sodium chloride 0.9% (100 ml) 100 ML 8.8 MCG IV (13:49)
--- NOTE | 2020-07-08 15:26 | PM.PN ---
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 History was obtained from review of records and discussion with ER staff. Patient was apparently found to have oxygen saturation in mid 70s with increasing o2 requirement. Upon arrival to ER he was placed on BiPAP. Initial laboratory work up showed a WBC of 11.1, hemoglobin of 14.0, hematocrit 44.5 and platelet count of 183. Sodium 125, potassium 4.6, chloride 77, bicarb 32, BUN 136 and creatinine of 3.0. Lactic acid of 2.0. AST of 76, ALT of 397 and alkaline phosphatase of 186. Troponin T 474 - > 480.6, Delta troponin T of 6.6. ProBNP of 20,006. INR of 1.65, D-dimer of 2.84. Initial ABG on BiPAP of 7.33, PCO2 of 72.8, Po2 of 89.6, bicarb of 37.9. Patient was not tolerating Bipap due to agitation. He was subsequently intubated on placed on mechanical ventilation. Was noted to have hypotension as well after sedative medications for which he was started on Levophed. He was placed on versed and fentanyl for sedation. Imaging studies included a chest x-ray which showed cardiomegaly, pulmonary vascularity appeared normal with no evidence of pneumothorax or infiltrates. Head CT was also ordered and pending at the time of my eval. In addition to above patient was also given Lasix 40 mg IV x 1 and Levaquin 750 mg IV x 1. Upon admission he was started on broad spectrum antibiotics for suspected R>L cellulitis however patient did have underlying dependent rubra with chronic lymphedema/wounds. Blood cultures were drawn. Due to elevated troponin the trend of which was not indicative of acs he was started on heparin gtt. Also due to elevated d-dimer with inablity to entirely rule out acute PE however given the decrease of hypoxemia with out any chest x-ray findings of pulmonary edema possiblity of acute PE was high. Nephrology was also consulted due to worsening acute renal function. He was given lasix in ER however appeared for me intravascularly dry. Was started on IVF. He continued to require levophed to mantain MAP of greater than 65. 07/06/20 Overnight patient remained intubated on mechanical vent. He was started on broad spectrum antibiotics for suspected R>L cellulitis however patient did have underlying dependent rubra with chronic lymphedema/wounds. Blood cultures were drawn. Due to elevated troponin the trend of which was not indicative of acs he was started on heparin gtt. Also due to elevated d-dimer with inablity to entirely rule out acute PE however given the decrease of hypoxemia with out any chest x-ray findings of pulmonary edema possiblity of acute PE was high. Nephrology was also consulted due to worsening acute renal function. He was given lasix in ER however was started on IV fluids after seen by Nephrology. 07/07/2020 Patient was started on IV Lasix last evening. Noted to have 6 L urine output. Was weaned off her sed and transition to Precedex. Of 2 sets remained stable. Continue to require IV Levophed. 07/08/2020 Overnight no new clinical events. Patient remained on FiO2 of 50%. Noted to have 1400 mL output overnight. In a.m. he was weaned off Precedex. Did not have any fever overnight. Remained on low-dose of Precedex. Lasix were held by nephrology. Was given a dose of diamox. CT chest PE protocol was performed which did not show any evidence of acute embolism. heparin drip was discontinued. Medications: Reviewed: Yes Vitals/I&O/Wt Last Vital Signs Temp 98.4 F 07/08/20 00:35 Pulse 60 07/08/20 15:08 Resp 12 07/08/20 15:04 BP 96/56 07/08/20 12:45 Pulse Ox 90 07/08/20 15:03 07/08/20 07/08/20 07/08/20 06:59 14:59 22:59 Intake Total 822.31 / 1971.865 330.660 / 330.660 Output Total 1000 / 1600 400 / 400 Balance -177.69 / 371.865 -69.340 / -69.340 Weight last 48 hrs Weight 113.88 kg Weight 113.2 kg Physical Exam Narrative: EXAM NARRATIVE: General : Intubated on MV HEENT - ET tube at 22 Chest - vented sounds CVS : Distant heart sounds ABD ; Non-distended Ext : Bilateral LE with chronic wound, dependent rubra L>R Neuro: unable to assess Urinary Catheter Management^: [place]: Cath Placed During This Visit: yes Reason for Continuing Indwelling Catheter: Accurate Measurement of Urinary Output in Critically Ill Patients Urinary Catheter Date of Insertion: 07/05/20 Urinary Catheter Time of Insertion: 15:50 Data : 07/08/20 04:12 07/08/20 04:12 Micro: Microbiology 07/05/20 17:00 Gram Stain - Final Sputum - Endotracheal Tube Aspirate Sputum Culture - Final A&P Assessment and plan (1) Acute respiratory failure with hypoxia and hypercapnia: Status: Acute (2) Acute renal failure: Status: Acute Qualifiers: Acute renal failure type: with acute tubular necrosis Qualified Code(s): N17.0 - Acute kidney failure with tubular necrosis (3) Cellulitis: Status: Acute Qualifiers: Laterality: unspecified laterality Site of cellulitis: extremity Site of cellulitis of extremity: lower extremity Qualified Code(s): L03.119 - Cellulitis of unspecified part of limb (4) Chronic respiratory failure: Status: Acute (5) PAD (peripheral artery disease): Status: Acute (6) Mixed hyperlipidemia: Status: Acute (7) Lesion of true vocal cord: Status: Acute (8) Chronic bilateral low back pain: Status: Chronic Qualifiers: Sciatica laterality: bilateral sciatica Sciatica presence: with sciatica Qualified Code(s): M54.42 - Lumbago with sciatica, left side; M54.41 - Lumbago with sciatica, right side; G89.29 - Other chronic pain (9) Lower extremity edema: Status: Chronic (10) Transaminitis: Status: Acute (11) COPD (chronic obstructive pulmonary disease): Status: Chronic Qualifiers: COPD type: unspecified COPD Qualified Code(s): J44.9 - Chronic obstructive pulmonary disease, unspecified (12) Hyponatremia: Status: Acute Acute on chronic hypoxemic hypercapnia respiratory failure - On 6 L of o2 at baseline - Intubated on MV on arrival - Fentanyl at 100 mcg/hr - Precedex gtt - Chest x-ray in am - Duoneb q6r scheduled - Pulmicort 0.5 mg INH BID - Solu-medrol 40 mg IV q8hr - Wean Fio2 currently at 50%, PCV. RR 12. - Repeat ABG in am 02/Steroid dependent COPD exacerbation - Management as noted above - Low suspicion of underlying bacterial pneumonia - Empirically on abx - Primexin - Will de-escalate baseline on clinical course Acute systolic HF with cor pulmonale - Cardiomegaly noted on chest x-ray - Improving LE edema - Lasix 40 mg IV BID ordered - held by nephro on 07/07 - ECHO - EF 45, with severe RV dysfunction - ProBMP - - Net negative balance - Replace Lytes - Check weight in am Non-ST elevation HI - Likely type 2, trend not consistent with ACS - Troponin 474 ->480-> 426 - On IV heparin gtt - Cardiology consulted - ECHO noted - no RWM abnormality - Will likely require ischemic work up once stable Acute renal failure / Hypochloremic Metabolic alkalosis - Creatinine 3.0 > 2.0 - > 1.2 - 1.0 - CK 832 - 1400 cc outut overnight - BMP in am - Nephrology on board - Was given diamox today per nephrology - Likely compensatory to respiratory with component of diuretics Hypokalemia, Hypomagnesemia - continue replacement - BMP in am - Mg level in am Elevated D-Dimer - PE ruled out - Discontinue Heparin gtt - Start heparin 5000 units Q8hr for dvt ppx Elevated LFTs - Improving - Etiology likely due to right heart failure/passive congestion - AST 76-59 - 31 - ALT 397-257 - 126 - Hepatitis panel negative - CT abd/pelvis - stable Additional medical History Vocal cord malignancy s/p Chemo-radiation Hx of Colon cancer s/p p.colectomy Obstructive sleep apnea Peripheral arterial disease Polyneuropathy Gasteroesophageal reflux disease disease DVT ppx on heparin gtt Attestations Medical Necessity Statement*: Continue hospitalization for management of respiratory failure requiring mechanical ventilation Time Spent in Patient Care: Greater than 35 minutes (>than 50% of time spent in counselling and/or direct pt care on unit). 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01 COPD (chronic obstructive pulmonary disease) J44.9 COPD type: unspecified COPD Hyponatremia E87.1
--- NOTE | 2020-07-08 15:30 | PC.NURSE ---
wasted 90 cc of fentynl
--- NOTE | 2020-07-08 16:18 | PM.PN ---
Subjective Subjective: Interval history: Patient is intubated and sedated FiO2 40% Medications: Reviewed: Yes Vitals/I&O/Wt Last Vital Signs Temp 97.5 F L 07/08/20 14:30 Pulse 63 07/08/20 16:00 Resp 12 07/08/20 15:04 BP 101/47 07/08/20 16:00 Pulse Ox 97 07/08/20 16:00 07/08/20 07/08/20 07/08/20 06:59 14:59 22:59 Intake Total 822.31 / 1971.865 330.660 / 330.660 18.04 / 348.700 Output Total 1000 / 1600 400 / 400 Balance -177.69 / 371.865 -69.340 / -69.340 18.04 / -51.300 Weight last 48 hrs Weight 251 lb 1 oz Weight 249 lb 9 oz Physical Exam Narrative: EXAM NARRATIVE: GENERAL: Patient is intubated on vent. He is sedated NECK: No jugular vein distension. HEENT: No cyanosis. No icterus. No pallor. HEART: Regular S1 and S2. No murmur, rub or gallop. LUNGS: Clear to auscultate bilaterally. ABDOMEN: Soft, nondistended. CENTRAL NERVOUS SYSTEM: Grossly nonfocal. EXTREMITIES: Lower extremities without edema bilaterally. Urinary Catheter Management^: [place]: Cath Placed During This Visit: yes Reason for Continuing Indwelling Catheter: Accurate Measurement of Urinary Output in Critically Ill Patients Urinary Catheter Date of Insertion: 07/05/20 Urinary Catheter Time of Insertion: 15:50 Data : 07/08/20 04:12 07/08/20 04:12 Micro: Microbiology 07/05/20 17:00 Gram Stain - Final Sputum - Endotracheal Tube Aspirate Sputum Culture - Final A&P Assessment and plan (1) Cardiomyopathy: stable biventricular failure, continue current regimen Status: Acute Qualifiers: Cardiomyopathy type: unspecified Qualified Code(s): I42.9 - Cardiomyopathy, unspecified (2) Acute cor pulmonale: Most likely secondary COPD CT scan negative for PE Status: Acute (3) Acute renal failure: Improved. Nephrology is on board Status: Acute Qualifiers: Acute renal failure type: with acute tubular necrosis Qualified Code(s): N17.0 - Acute kidney failure with tubular necrosis Attestations Medical Necessity Statement*: Patient require continuation hospitalization for above defined care. 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
[2020-07-08 16:43] LABS: Partial Thromboplastin Time 64.6 SECONDS (23.9-36.7)
--- NOTE | 2020-07-08 16:56 | PC.NURSE ---
wasted 90 ml Versed with CHARLOTTE Abdi RN.
--- NOTE | 2020-07-08 18:44 | PC.NURSE ---
Pt's Heparin stopped. Messaged Dr. Malagon when order came through to get additional VTE for pt. No new order yet. Additional VOALT sent at this time.
[2020-07-08] MEDS: heparin 5,000 unit/mL INJ 1 mL 5000 UNIT SUBCUT (19:07)
[2020-07-08 19:54] LABS: Anion Gap 7.9 (5-19); Blood Urea Nitrogen 62 mg/dL (8-23); Calcium 9.2 mg/dL (8.5-10.5); Chloride 92 mmol/L (98-107); Glomerular Filtration Rate 112.1 mL/min (90-130); Glucose 178 mg/dL (65-115); Osmolality Calculated 316 mOsm/kg (285-295); Sodium 142 mmol/L (136-145)
[2020-07-08 20:03] LABS: Carbon Dioxide 45 mmol/L (22-29); Potassium 2.9 mmol/L (3.5-5.1)
[2020-07-08] MEDS: potassium chloride premix 100 ML 25 MEQ IV (20:38)
[2020-07-09] VITALS (67 sets, daily range): BP systolic 82–153; BP diastolic 47–86; PULSE 57–75; RESP 7–16; TEMP 36–36.7; O2SAT 75–97
--- NOTE | 2020-07-09 00:01 | PC.NURSE ---
Patient resting in bed, pruitt in place and draining appropriately. No s/s of distress, continue care.
[2020-07-09] MEDS: potassium chloride premix 100 ML 25 MEQ IV (00:21)
--- NOTE | 2020-07-09 02:00 | PC.NURSE ---
Patient still resting quietly, continue care.
[2020-07-09] MEDS: heparin 5,000 unit/mL INJ 1 mL 5000 UNIT SUBCUT ×3 (02:47→18:34)
[2020-07-09] MEDS: ipratropium-albuterol 3 mL Neb INHALATION ×4 (03:20→20:34)
[2020-07-09 04:40] LABS: Basophils % 0.1 %; Hematocrit 51.8 % (42.0-52.0); Hemoglobin 15.4 g/dL (11.7-16.6); Lymphocytes # 0.4 10^3/uL (0.8-4.8); Lymphocytes % 2.7 %; Mean Corpuscular HGB Conc 29.7 g/dL (30.0-36.0); Mean Corpuscular Hemoglobin 27.9 pg (28.0-34.0); Mean Corpuscular Volume 93.8 fL (80-94); Mean Platelet Volume 11.5 fL (7.4-10.4); Monocytes # 0.6 10^3/uL (0.2-0.9); Neutrophils # 14.02 10^3/uL (1.8-7.7); Neutrophils % 92.7 %; Nucleated Red Blood Cells % 0 %; Platelet Count 129 10^3/cmm (130-400); Red Blood Count 5.52 10^6/uL (4.1-5.3); Red Cell Distribution Width 14.6 % (12.1-15.1); White Blood Count 15.1 10^3/uL (4.0-10.0)
[2020-07-09] MEDS: famotidine 20 mg/2 mL INJ IVP ×2 (05:20→18:34)
[2020-07-09 05:23] LABS: Blood Urea Nitrogen 62 mg/dL (8-23); Calcium 9.4 mg/dL (8.5-10.5); Chloride 94 mmol/L (98-107); Glomerular Filtration Rate 96.1 mL/min (90-130); Glucose 196 mg/dL (65-115); Osmolality Calculated 319 mOsm/kg (285-295); Phosphorus 3.4 mg/dL (2.5-4.5); Sodium 143 mmol/L (136-145)
--- NOTE | 2020-07-09 05:48 | PC.NURSE ---
Uneventful shift, linen change, gustavo care, and personal hygiene performed. Continue care.
[2020-07-09 06:01] LABS: Carbon Dioxide 44 mmol/L (22-29)
[2020-07-09 06:03] LABS: Anion Gap 8.4 (5-19); Potassium 3.4 mmol/L (3.5-5.1)
[2020-07-09] MEDS: budesonide 0.5 mg/2 mL Neb INHALATION ×2 (08:20→20:34)
--- NOTE | 2020-07-09 08:54 | PC.NURSE ---
Norepinephrine was restarted by Janel HERNANDEZ, charted under Ava FRY by accident. Unable to undo action. Pharmacy called and notified.
--- NOTE | 2020-07-09 09:07 | PC.CHAP ---
Pastoral Care Encounter/Spiritual Assessment Type of Contact [] Declined heating and ventilating drafter visit [] Patient/Family/Request visit [] Outpatient visit [] Follow-up visit [] Physician referral [] Code/Alert [x] Routine visit [] Staff referral [] Actively dying [] Patient sleeping [] Family support [] [] Out of room [] Palliative care [] [] Receiving care in room [] Pre-surgical visit [] Trauma [] Long length of stay [x] ICU visit [x] Other: outside room Relational/Emotional Strength [] Patient feels connected with others/family/visitors/staff [] Distress [] Loneliness/isolation [] Abandonment Spirituality of Patient [] Person of Jessica [] Attends Spiritism of their Jessica [] Believes in Prayer [] Reads Bible or Denominational materials [] There are Spiritual issues to be addressed Customer Service Assistant Interventions [x] Prayer [] Active listening [] Non-anxious presence [] Spiritual/emotional support [] Crisis/trauma care [] Spiritual counseling [] Bereavement support [] Provided bereavement packet [] Provided Bible/devotional materials [] Provided toy/stuffed animal, coloring book to patient or family member [] Provided Communion [] Anointing/[place] [] Salvation [x] Completed spiritual assessment [] Other: Impact on Illness or Injury [] Angry [] Fearful [] Anxious [] Often cries [] Exhaustion [] Unable to work [] Unable to attend islam [] Unable to walk/stand [] Unable to read [] Unable to drive [] Unable to eat/drink [] Unable to sleep [] Unable to be with family [] Patient intubated [] Other: Summary Time spent with patient
--- NOTE | 2020-07-09 09:22 | PC.NURSE ---
Pt hooked up to melanie, medication not started yet, SBP 98. Medication held at this time.
--- NOTE | 2020-07-09 11:19 | PC.NURSE ---
med not scanned on morning meds do to 4 staff nurses and each nurse has 1 resident and 1 student. Not enough scanners or computers to give medications within the time frame.
[2020-07-09 11:31] LABS: ABG PCO2 59.5 mmHg (35-45); ABG PH Result 7.51 (7.35-7.45); Alveolar-Arterial Oxygen Gradi 20.5 mmHg (5-10); Arterial Blood Gas Hematocrit 47.8 % (42-52); Base Excess ABG 19.7 mmol/L (-2.0-2.0); Blood Gas Allen Test Pos; Blood Gas Operator Identificat CAK; Blood Gas Sample Site Brachial, left; Blood Gas Sample Type Arterial; Carboxyhemoglobin 1.1 %THgb (0.4-20.1); HCO3 ABG 46.8 mmol/L (22-26); HGB O2 Sat 95.6 % (95-100); Ionized Calcium Level - ABG 1.2 mmol/L (1.1-1.4); Methemoglobin 0.7 % (0.4-1.5); Oxygen Device VENT; Oxygen Saturation ABG 97.3; PO2 ABG 86.8 mmHg (80.0-100.0); Potassium Level - ABG 3.1 mmol/L (3.5-5.0); Total Hemoglobin 15.6 g/dL (14-18)
--- NOTE | 2020-07-09 11:44 | PC.NURSE ---
Dr Malagon in room when NS was going to be started. He requested that not be given and states that he will talk to Dr. Ordonez regarding the order.
--- NOTE | 2020-07-09 11:45 | PC.NURSE ---
Pt not responding to verbal stimuli at this time. Black emesis noted in NG tube, this was reported to Dr. Malagon.
--- NOTE | 2020-07-09 11:47 | P.PN_ITS ---
Subjective Subjective: Interval history: interval events noted, remains intubated, mechanically ventilated. Vent settings reviewed, FiO2 45%, PEEP of 5, currently doing well on spontaneous breathing trials. Hemodynamics remain robust. Medications: Reviewed: Yes Vitals/I&O/Wt Last Vital Signs Temp 97.3 F L 07/09/20 10:00 Pulse 66 07/09/20 10:00 Resp 8 L 07/09/20 11:35 BP 106/67 07/09/20 10:00 Pulse Ox 93 07/09/20 10:00 07/08/20 07/09/20 07/09/20 22:59 06:59 14:59 Intake Total 118.04 / 548.700 292.917 / 841.617 0.855 / 0.855 Output Total 650 / 1050 Balance -531.96 / -501.300 292.917 / -208.383 0.855 / 0.855 Weight last 48 hrs Weight 110.421 kg Weight 113.88 kg Physical Exam Narrative: EXAM NARRATIVE: Constitutional: comfortable on the vent HEENT: Wet mucosa, no jvp, non icteric Lungs: Bilaterally clear without discernible wheeze, rales in all lung zones CVS: S1 S2, no murmurs Abdo: Soft, BS ok Ext 4: Minimal edema, peripheral perfusion with no cyanosis Neurological: Grossly non-focal Urinary Catheter Management^: [place]: Cath Placed During This Visit: yes Reason for Continuing Indwelling Catheter: Accurate Measurement of Urinary Output in Critically Ill Patients Urinary Catheter Date of Insertion: 07/05/20 Urinary Catheter Time of Insertion: 15:50 Data : 07/09/20 04:13 07/09/20 04:13 Micro: Microbiology 07/05/20 17:00 Gram Stain - Final Sputum - Endotracheal Tube Aspirate Sputum Culture - Final A&P Additional A&P Information 1. Acute kidney injury renal function remains stable 2. Lytes met alkalosis; redose diamox and will give gentle ivf with NS 3. VDRF; weaning, hopefully will come off the vent today Dhiraj Shi MD Nephrology [phone] Patient seen and examined via telemedicine, with the assistance of the bedside RN > 25 min spent in evaluation and mgmt of patient Attestations Medical Necessity Statement*: eval for JES Coding Level of Care Code Acute Staff Command And Control Officer for Chg Roseann
--- NOTE | 2020-07-09 14:17 | P.PN_ITS ---
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 History was obtained from review of records and discussion with ER staff. Patient was apparently found to have oxygen saturation in mid 70s with increasing o2 requirement. Upon arrival to ER he was placed on BiPAP. Initial laboratory work up showed a WBC of 11.1, hemoglobin of 14.0, hematocrit 44.5 and platelet count of 183. Sodium 125, potassium 4.6, chloride 77, bicarb 32, BUN 136 and creatinine of 3.0. Lactic acid of 2.0. AST of 76, ALT of 397 and alkaline phosphatase of 186. Troponin T 474 - > 480.6, Delta troponin T of 6.6. ProBNP of 20,006. INR of 1.65, D-dimer of 2.84. Initial ABG on BiPAP of 7.33, PCO2 of 72.8, Po2 of 89.6, bicarb of 37.9. Patient was not tolerating Bipap due to agitation. He was subsequently intubated on placed on mechanical ventilation. Was noted to have hypotension as well after sedative medications for which he was started on Levophed. He was placed on versed and f entanyl for sedation. Imaging studies included a chest x-ray which showed cardiomegaly, pulmonary v ascularity appeared normal with no evidence of pneumothorax or infiltrates. Head CT was also ordered and pending at the time of my eval. In addition to above patient was also given Lasix 40 mg IV x 1 and Levaquin 750 mg IV x 1. Upon admission he was started on broad spectrum antibiotics for suspected R>L cellulitis however patient did have underlying dependent rubra with chronic lymphedema/wounds. Blood cultures were drawn. Due to elevated troponin the trend of which was not indicative of acs he was started on heparin gtt. Also due to elevated d-dimer with inablity to entirely rule out acute PE however given the decrease of hypoxemia with out any chest x-ray findings of pulmonary edema possiblity of acute PE was high. Nephrology was also consulted due to worsening acute renal function. He was given lasix in ER however appeared for me intravascularly dry. Was started on IVF. He continued to require levophed to mantain MAP of greater than 65. 07/06/20 Overnight patient remained intubated on mechanical vent. He was started on broad spectrum antibiotics for suspected R>L cellulitis however patient did have underlying dependent rubra with chronic lymphedema/wounds. Blood cultures were drawn. Due to elevated troponin the trend of which was not indicative of acs he was started on heparin gtt. Also due to elevated d-dimer with inablity to entirely rule out acute PE however given the decrease of hypoxemia with out any chest x-ray findings of pulmonary edema possiblity of acute PE was high. Nephrology was also consulted due to worsening acute renal function. He was given lasix in ER however was started on IV fluids after seen by Nephrology. 07/07/2020 Patient was started on IV Lasix last evening. Noted to have 6 L urine output. Was weaned off her sed and transition to Precedex. Of 2 sets remained stable. Continue to require IV Levophed. 07/08/2020 Overnight no new clinical events. Patient remained on FiO2 of 50%. Noted to have 1400 mL output overnight. In a.m. he was weaned off Precedex. Did not have any fever overnight. Remained on low-dose of Precedex. Lasix were held by nephrology. Was given a dose of diamox. CT chest PE protocol was performed whi ch did not show any evidence of acute embolism. heparin drip was discontinued. 07/09/2020 No clinical events overnight, patient was weaned off sedation and on pressure support this am, still very drowsy. Fio2 was weaned to 45%, PEEP of 5. Was arousable however with stimulation and followed commands. Would fall back asleep. Medications: Reviewed: Yes Vitals/I&O/Wt Last Vital Signs Temp 97.3 F L 07/09/20 10:00 Pulse 66 07/09/20 10:00 Resp 8 L 07/09/20 13:32 BP 106/67 07/09/20 10:00 Pulse Ox 93 07/09/20 10:00 07/08/20 07/09/20 07/09/20 22:59 06:59 14:59 Intake Total 118.04 / 548.700 292.917 / 841.617 0.855 / 0.855 Output Total 650 / 1050 Balance -531.96 / -501.300 292.917 / -208.383 0.855 / 0.855 Weight last 48 hrs Weight 110.421 kg Weight 113.88 kg Physical Exam Narrative: EXAM NARRATIVE: General : Intubated on MV HEENT - ET tube at 22 Chest - vented sounds CVS : Distant heart sounds ABD ; Non-distended Ext : Bilateral LE with chronic wound, dependent rubra L>R Neuro: unable to assess Urinary Catheter Management^: [place]: Cath Placed During This Visit: yes Reason for Continuing Indwelling Catheter: Accurate Measurement of Urinary Output in Critically Ill Patients Urinary Catheter Date of Insertion: 07/05/20 Urinary Catheter Time of Insertion: 15:50 Data : 07/09/20 04:13 07/09/20 04:13 Micro: Microbiology 07/05/20 17:00 Gram Stain - Final Sputum - Endotracheal Tube Aspirate Sputum Culture - Final A&P Assessment and plan (1) Acute respiratory failure with hypoxia and hypercapnia: Status: Acute (2) Acute renal failure: Status: Acute Qualifiers: Acute renal failure type: with acute tubular necrosis Qualified Code(s): N17.0 - Acute kidney failure with tubular necrosis (3) Cellulitis: Status: Acute Qualifiers: Site of cellulitis: extremity Site of cellulitis of extremity: lower extremity Laterality: unspecified laterality Qualified Code(s): L03.119 - Cellulitis of unspecified part of limb (4) Chronic respiratory failure: Status: Acute (5) PAD (peripheral artery disease): Status: Acute (6) Mixed hyperlipidemia: Status: Acute (7) Lesion of true vocal cord: Status: Acute (8) Chronic bilateral low back pain: Status: Chronic Qualifiers: Sciatica presence: with sciatica Sciatica laterality: bilateral sciatica Qualified Code(s): M54.42 - Lumbago with sciatica, left side; M54.41 - Lumbago with sciatica, right side; G89.29 - Other chronic pain (9) Lower extremity edema: Status: Chronic (10) Transaminitis: Status: Acute (11) COPD (chronic obstructive pulmonary disease): Status: Chronic Qualifiers: COPD type: unspecified COPD Qualified Code(s): J44.9 - Chronic obstructive pulmonary disease, unspecified (12) Hyponatremia: Status: Acute Acute on chronic hypoxemic hypercapnia respiratory failure - On 6 L of o2 at baseline - Intubated on MV on arrival - Fentanyl / Precedex - Chest x-ray in am - CTA chest - no PE - Duoneb q6r scheduled - Pulmicort 0.5 mg INH BID - Solu-medrol 40 mg IV q8hr - Wean Fio2 currently at 50%, PCV. RR 12. - Weaning trial today, off sedation - Continue on pressure support - Will possible need HFNC post extubation 02/Steroid dependent COPD exacerbation - Management as noted above - Low suspicion of underlying bacterial pneumonia - Empirically on abx - Primexin - Will de-escalate baseline on clinical course Acute systolic HF with cor pulmonale - Cardiomegaly noted on chest x-ray - Improving LE edema - Lasix 40 mg IV BID ordered - held by nephro on 07/07 - On Diamox - ECHO - EF 45, with severe RV dysfunction - ProBMP - - Net negative balance - Replace Lytes - Check weight in am Non-ST elevation VT - Likely type 2, trend not consistent with ACS - Troponin 474 ->480-> 426 - Cardiology consulted - ECHO noted - no RWM abnormality - Will likely require ischemic work up once stable Acute renal failure / Hypochloremic Metabolic alkalosis - Creatinine 3.0 > 2.0 - > 1.2 - 1.0 - 0.8 - CK 832 - 650 cc outut overnight - u/o 0.25 ml/kg/hr - BMP in am - Nephrology on board - Was given diamox today per nephrology - D/w Nephrology - ok to hold IVF Hypokalemia, Hypomagnesemia - continue replacement - BMP in am - Mg level in am Elevated D-Dimer - PE ruled out - Discontinue Heparin gtt -heparin 5000 units Q8hr for dvt ppx Elevated LFTs - Improving - Etiology likely due to right heart failure/passive congestion - AST 76-59 - 31 - ALT 397-257 - 126 - Hepatitis panel negative - CT abd/pelvis - stable Additional medical History Vocal cord malignancy s/p Chemo-radiation Hx of Colon cancer s/p p.colectomy Obstructive sleep apnea Peripheral arterial disease Polyneuropathy Gasteroesophageal reflux disease disease DVT ppx on heparin gtt Attestations Medical Necessity Statement*: Continue hospitalization for management of respiratory failure rq ventilation Time Spent in Patient Care: Greater than 35 minutes (>than 50% of time spent in counselling and/or direct pt care on unit) . Coding Level of Care Code Acute Charge Account Authorizer for Seymour Fwd Diagnoses Acute respiratory failure with hypoxia and hypercapnia J96.01; J96.02 Acute renal failure N17.0 Acute renal failure type: with acute tubular necrosis Cellulitis L03.119 Site of cellulitis: extremity Site of cellulitis of extremity: lower extremity Laterality: unspecified laterality Chronic respiratory failure J96.10 PAD (peripheral artery disease) I73.9 Mixed hyperlipidemia E78.2 Lesion of true vocal cord J38.3 Chronic bilateral low back pain M54.42; M54.41; G89.29 Sciatica presence: with sciatica Sciatica laterality: bilateral sciatica Lower extremity edema R60.0 Transaminitis R74.01 COPD (chronic obstructive pulmonary disease) J44.9 COPD type: unspecified COPD Hyponatremia E87.1
[2020-07-09] MEDS: acetaZOLAMIDE 250 mg Tablet PO (15:25)
--- NOTE | 2020-07-09 15:26 | PC.NURSE ---
Med late do to underwriter solicitation director getting surgical pt back and unable to get away to administer.
--- NOTE | 2020-07-09 21:29 | P.PN_ITS ---
Subjective Subjective: Interval history: 70 yo man with PMHx of severe emphysema oxygen dependent, lung cancer and colon cancer (transverse colon cancer s/p Sx in 08/2017) and h/o preserved LV fun ction, PAD, smoker and chronic leg edema. 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 He presented to [facility] via EMS with complaints of respiratory distress and altered mental status. He was intubated in the emergency room and is subsequently admitted to the hospital for further evaluation and management. He has been having worsening shortness of breath,swelling of the lower extremities for the last several months. He was taking diuretics as an outpatient for the swelling that did not help and as per UO decreased even more. On the day of admission, he was found to have altered mental status. For that reason, the EMS was called in. His oxygen saturation was around 70% based on the EMS records. Cardiology and renal were consulted. He received lasix 40 mg IV x 1 followed by 1 L IVF and then lasix 40 mg IV x1 on 07/06 and 07/07. He underwent echo that showed decreased LV function and RV function. CT chest PE protocol was performed which did not show any evidence of acute embolism. heparin drip was discontinued. 07/09/2020 Overnight no new clinical events. He is -6L LOS. Patient remains on FiO2 of 45%. Lasix d/c ed by nephrology for contraction alkalosis. He has received 2 doses of diamox. Medications: Reviewed: Yes Medication Review Details: Current Medications Albuterol/Ipratropium (Ipratropium-Albuterol 3 Ml Neb) 3 ml INHALATION Q4H.RESPIRATORY PRN PRN Reason: SHORTNESS OF BREATH Last Admin: 07/09/20 20:34 Dose: 3 ml Documented by: Budesonide (Budesonide 0.5 Mg/2 Ml Neb) 0.5 mg INHALATION BID.RESPIRATORY VIMAL Last Admin: 07/09/20 20:34 Dose: 0.5 mg Documented by: Famotidine (Famotidine 20 Mg/2 Ml Inj) 20 mg IVP Q12H VIMAL Last Admin: 07/09/20 18:34 Dose: 20 mg Documented by: Heparin Sodium (Beef Lung) (Heparin 5,000 Unit/Ml Inj 1 Ml) 5,000 unit SUBCUT Q8H VIMAL Last Admin: 07/09/20 18:34 Dose: 5,000 unit Documented by: Rocuronium [place] 250 mg/ (Sodium Chloride) 250 mls @ 0 mls/hr IV .Q0M VIMAL; Protocol Norepinephrine Bitartrate 4 mg (/ Dextrose) 254 mls @ 0 mls/hr IV .Q0M VIMAL; Protocol Last Titration: 07/09/20 09:14 Dose: 0 mcg/min, 0 mls/hr Documented by: Dexmedetomidine HCl 400 mcg/ (Sodium Chloride) 104 mls @ 0 mls/hr IV .Q0M VIMAL; Protocol Last Titration: 07/08/20 15:52 Dose: 0.1 mcg/kg/hr, 2.9 mls/hr Documented by: Imipenem/Cilastatin Sodium 500 (mg/ Sodium Chloride) 100 mls @ 200 mls/hr IV Q6H VIMAL; Protocol Last Admin: 07/09/20 18:34 Dose: 200 mls/hr Documented by: Fentanyl 1,000 mcg/ Sodium (Chloride) 100 mls @ 0 mls/hr IV .Q0M VIMAL; Protocol Methylprednisolone Sodium Succinate (Methylprednisolone Sod Succ 40 Mg/Ml Inj) 40 mg IVP Q8H VIMAL Last Admin: 07/09/20 20:09 Dose: 40 mg Documented by: Ondansetron HCl (Ondansetron 2 Mg/Ml Sdv 2 Ml) 4 mg IVP Q6H PRN PRN Reason: NAUSEA AND VOMITING Vitals/I&O/Wt Last Vital Signs Temp 968 F H 07/09/20 20:00 Pulse 61 07/09/20 20:35 Resp 10 L 07/09/20 20:36 BP 110/56 07/09/20 20:00 Pulse Ox 93 07/09/20 20:35 07/09/20 07/09/20 07/09/20 06:59 14:59 22:59 Intake Total 292.917 / 841.617 100.855 / 100.855 Output Total 350 / 350 350 / 700 Balance 292.917 / -208.383 -249.145 / -249.145 -350 / -599.145 Weight last 48 hrs Weight 243 lb 7 oz Weight 251 lb 1 oz Physical Exam Narrative: EXAM NARRATIVE: GENERAL: Patient is intubated on vent and sedated NECK: No jugular vein distension appreciated. HEENT: No cyanosis. No icterus. No pallor. HEART: Regular S1 and S2. No murmur, rub or gallop. LUNGS: Clear to auscultate bilaterally anteriorly ABDOMEN: Soft, nondistended. CENTRAL NERVOUS SYSTEM: sedated EXTREMITIES: Lower extremities 1-2+ edema bilaterally. Urinary Catheter Management^: [place]: Cath Placed During This Visit: yes Reason for Continuing Indwelling Catheter: Accurate Measurement of Urinary Output in Critically Ill Patients Urinary Catheter Date of Insertion: 07/05/20 Urinary Catheter Time of Insertion: 15:50 Data : 07/09/20 04:13 07/09/20 04:13 Other data: # CTA abdominal aorta with run off (12/2007): Extensive plaque in distal portion of abdominal aorta at level of bifurcation. Extensive plaque in right common illiac and right external illiac as well as left common illiac artery. 40-50% stenosis in common branch feeding right peroneal and posterior tibial artery with narrowing and attenuation of peroneal artery and complete occlusion 8 cm above right ankle. 40% stenosis of right renal artery. # TTE ( 06/2020) CONCLUSIONS Diffuse hypokinesia of the left ventricle with ejection fraction of around 30%. Moderate left ventricular hypertrophy. Dilated right ventricle with a severe diffuse hypokinesia, features suggesting ventricular pressure overload Mildly dilated right atrium. Could not estimate the PA pressure because of the poor Doppler signals Minimally thickened aortic and mitral valves. There is no pericardial effusion. There are no intracardiac masses. No previous studies available for comparison A&P Assessment and plan (1) Cardiomyopathy: newly diagnosed drop in LV function. -echo was ordered as outpatient and was never scheduled as outpatient -He will require further w/u once stable. Status: Acute Qualifiers: Cardiomyopathy type: unspecified Qualified Code(s): I42.9 - Cardiomyopathy, unspecified (2) Acute cor pulmonale: Most likely secondary COPD CT scan negative for PE Status: Acute (3) Acute renal failure: Improved. Nephrology is on board Status: Acute Qualifiers: Acute renal failure type: with acute tubular necrosis Qualified Code(s): N17.0 - Acute kidney failure with tubular necrosis (4) Elevated troponin: Status: Acute Additional A&P Information Acute on chronic respiratory failure HTN Chronic respiratory failure COPD PAD SCC of vocal cord MANISH Abnormal liver enzymes Hypokalemia HYpomagnesemia Attestations Medical Necessity Statement*: remains intubated and in ICU Coding Level of Care Code Acute Hide Inspector for g Fwd Diagnoses Cardiomyopathy I42.9 Cardiomyopathy type: unspecified Acute cor pulmonale I26.09 Acute renal failure N17.0 Acute renal failure type: with acute tubular necrosis Elevated troponin R77.8
[2020-07-10] VITALS (60 sets, daily range): BP systolic 92–153; BP diastolic 51–84; PULSE 52–94; RESP 10–20; TEMP 36.1–37.1; O2SAT 80–96
[2020-07-10] MEDS: dexmedetomidine 400 MCG in sodium chloride 0.9% (100 ml) 100 ML IV (02:21)
[2020-07-10] MEDS: heparin 5,000 unit/mL INJ 1 mL 5000 UNIT SUBCUT ×3 (02:39→17:49)
[2020-07-10 04:45] LABS: ABG PH Result 7.47 (7.35-7.45); Arterial Blood Gas Hematocrit 47.9 % (42-52); Base Excess ABG 18.7 mmol/L (-2.0-2.0); Blood Gas Allen Test Pos; Blood Gas Sample Type Arterial; HCO3 ABG 46.5 mmol/L (22-26); PO2 ABG 70.6 mmHg (80.0-100.0)
[2020-07-10 04:46] LABS: Blood Gas Sample Site Brachial, right
[2020-07-10 04:47] LABS: Blood Gas Operator Identificat JB; Blood Gas Tidal Volume 0.45; Oxygen Device VENT
[2020-07-10 04:48] LABS: ABG PCO2 63.5 mmHg (35-45)
[2020-07-10] MEDS: famotidine 20 mg/2 mL INJ IVP ×2 (05:07→17:44)
--- NOTE | 2020-07-10 05:54 | PC.NURSE ---
Uneventful shift: No changes throughout the night. Continue care.
--- NOTE | 2020-07-10 05:57 | PC.NURSE ---
Patients does not want patient extubated without her present, due to risk of not being able to come off the vent. Also patients would like to be called on her landline if before 0800 due to her cell not loud enough to wake her up.
[2020-07-10] MEDS: ipratropium-albuterol 3 mL Neb INHALATION ×3 (07:58→20:14)
[2020-07-10] MEDS: budesonide 0.5 mg/2 mL Neb INHALATION ×2 (07:58→20:14)
--- NOTE | 2020-07-10 09:15 | PC.CHAP ---
Pastoral Care Encounter/Spiritual Assessment Type of Contact [] Declined vp sales visit [] Patient/Family/Request visit [] Outpatient visit [] Follow-up visit [] Physician referral [] Code/Alert [x] Routine visit [] Staff referral [] Actively dying [] Patient sleeping [] Family support [] [] Out of room [] Palliative care [] [x Receiving care in room [] Pre-surgical visit [] Trauma [] Long length of stay [x] ICU visit [x] Other: patient still on respirator Relational/Emotional Strength [] Patient feels connected with others/family/visitors/staff [] Distress [] Loneliness/isolation [] Abandonment Spirituality of Patient [] Person of Jessica [] Attends Sikh of their Jessica [] Believes in Prayer [] Reads Bible or Sabianist materials [] There are Spiritual issues to be addressed Business Technology Architect Interventions [x] Prayer [] Active listening [] Non-anxious presence [] Spiritual/emotional support [] Crisis/trauma care [] Spiritual counseling [] Bereavement support [] Provided bereavement packet [] Provided Bible/devotional materials [] Provided toy/stuffed animal, coloring book to patient or family member [] Provided Communion [] Anointing/[place] [] Salvation [x] Completed spiritual assessment [] Other: Impact on Illness or Injury [] Angry [] Fearful [] Anxious [] Often cries [] Exhaustion [] Unable to work [] Unable to attend adventism [] Unable to walk/stand [] Unable to read [] Unable to drive [] Unable to eat/drink [] Unable to sleep [] Unable to be with family [] Patient intubated [] Other: Summary Time spent with patient
[2020-07-10] MEDS: acetaZOLAMIDE 250 mg Tablet PO (10:23)
--- NOTE | 2020-07-10 10:42 | PM.PN ---
Subjective Subjective: Interval history: No new issues overnight. Remains stable. Ventilatory settings noted, FiO2 45%, PEEP of 10. Urine output 1600 cc yesterday. Remains clinically euvolemic on appearance. Medications: Reviewed: Yes Medication Review Details: Current Medications Albuterol/Ipratropium (Ipratropium-Albuterol 3 Ml Neb) 3 ml INHALATION Q4H.RESPIRATORY PRN PRN Reason: SHORTNESS OF BREATH Last Admin: 07/09/20 20:34 Dose: 3 ml Documented by: Budesonide (Budesonide 0.5 Mg/2 Ml Neb) 0.5 mg INHALATION BID.RESPIRATORY VIMAL Last Admin: 07/09/20 20:34 Dose: 0.5 mg Documented by: Famotidine (Famotidine 20 Mg/2 Ml Inj) 20 mg IVP Q12H VIMAL Last Admin: 07/09/20 18:34 Dose: 20 mg Documented by: Heparin Sodium (Beef Lung) (Heparin 5,000 Unit/Ml Inj 1 Ml) 5,000 unit SUBCUT Q8H VIMAL Last Admin: 07/09/20 18:34 Dose: 5,000 unit Documented by: Rocuronium [place] 250 mg/ (Sodium Chloride) 250 mls @ 0 mls/hr IV .Q0M VIMAL; Protocol Norepinephrine Bitartrate 4 mg (/ Dextrose) 254 mls @ 0 mls/hr IV .Q0M VIMAL; Protocol Last Titration: 07/09/20 09:14 Dose: 0 mcg/min, 0 mls/hr Documented by: Dexmedetomidine HCl 400 mcg/ (Sodium Chloride) 104 mls @ 0 mls/hr IV .Q0M VIMAL; Protocol Last Titration: 07/08/20 15:52 Dose: 0.1 mcg/kg/hr, 2.9 mls/hr Documented by: Imipenem/Cilastatin Sodium 500 (mg/ Sodium Chloride) 100 mls @ 200 mls/hr IV Q6H VIMAL; Protocol Last Admin: 07/09/20 18:34 Dose: 200 mls/hr Documented by: Fentanyl 1,000 mcg/ Sodium (Chloride) 100 mls @ 0 mls/hr IV .Q0M VIMAL; Protocol Methylprednisolone Sodium Succinate (Methylprednisolone Sod Succ 40 Mg/Ml Inj) 40 mg IVP Q8H VIMAL Last Admin: 07/09/20 20:09 Dose: 40 mg Documented by: Ondansetron HCl (Ondansetron 2 Mg/Ml Sdv 2 Ml) 4 mg IVP Q6H PRN PRN Reason: NAUSEA AND VOMITING Vitals/I&O/Wt Last Vital Signs Temp 98.5 F 07/10/20 08:00 Pulse 59 L 07/10/20 10:30 Resp 11 L 07/10/20 08:09 BP 130/70 07/10/20 10:30 Pulse Ox 91 07/10/20 10:30 07/09/20 07/10/20 07/10/20 22:59 06:59 14:59 Intake Total 185.96 / 286.815 300.048 / 586.863 Output Total 350 / 700 650 / 1350 250 / 250 Balance -164.04 / -413.185 -349.952 / -763.137 -250 / -250 Weight last 48 hrs Weight 115.836 kg Weight 110.421 kg Physical Exam Narrative: EXAM NARRATIVE: Constitutional: comfortable on the vent HEENT: Wet mucosa, no jvp, non icteric Lungs: Bilaterally clear without discernible wheeze, rales in all lung zones CVS: S1 S2, no murmurs Abdo: Soft, BS ok Ext 4: Minimal edema, peripheral perfusion with no cyanosis Neurological: Grossly non-focal Urinary Catheter Management^: [place]: Cath Placed During This Visit: yes Reason for Continuing Indwelling Catheter: Accurate Measurement of Urinary Output in Critically Ill Patients Urinary Catheter Date of Insertion: 07/05/20 Urinary Catheter Time of Insertion: 15:50 Data : 07/09/20 04:13 07/09/20 04:13 A&P Additional A&P Information 1. Acute kidney injury renal function remains stable 2. Lytes Lytes pending, redose diamox 3. VDRF; weaning, hopefully will come off the vent today Dhiraj Shi MD Nephrology [phone] Patient seen and examined via telemedicine, with the assistance of the bedside RN > 25 min spent in evaluation and mgmt of patient Attestations Medical Necessity Statement*: eval for JES Coding Level of Care Code Acute Assistant Food Service Director for Seymour [place]
[2020-07-10 10:46] LABS: Blood Urea Nitrogen 64 mg/dL (8-23); Calcium 9.2 mg/dL (8.5-10.5); Chloride 99 mmol/L (98-107); Glomerular Filtration Rate 96.1 mL/min (90-130); Glucose 144 mg/dL (65-115); Osmolality Calculated 329 mOsm/kg (285-295); Phosphorus 4.5 mg/dL (2.5-4.5); Sodium 149 mmol/L (136-145)
[2020-07-10 10:51] LABS: Carbon Dioxide 45 mmol/L (22-29)
[2020-07-10 10:52] LABS: Anion Gap 8.7 (5-19); Potassium 3.7 mmol/L (3.5-5.1)
--- NOTE | 2020-07-10 11:46 | PM.PN ---
Subjective Subjective: Interval history: 70 yo man with PMHx of severe emphysema oxygen dependent, lung cancer and colon cancer (transverse colon cancer s/p Sx in 08/2017) and h/o preserved LV function, PAD, smoker and chronic leg edema. 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 He presented to [facility] ER via EMS with complaints of respiratory distress and altered mental status. He was intubated in the emergency room and is subsequently admitted to the hospital for further evaluation and management. He has been having worsening shortness of breath,swelling of the lower extremities for the last several months. He was taking diuretics as an outpatient for the swelling that did not help and as per UO decreased even more. On the day of admission, he was found to have altered mental status. For that reason, the EMS was called in. His oxygen saturation was around 70% based on the EMS records. Cardiology and renal were consulted. He received lasix 40 mg IV x 1 followed by 1 L IVF and then lasix 40 mg IV x1 on 07/06 and 07/07. He underwent echo that showed decreased LV function and RV function. CT chest PE protocol was performed which did not show any evidence of acute embolism. heparin drip was discontinued. 07/10/2020 Overnight no new clinical events. Patient remains on FiO2 of 45%. Lasix d/c ed by nephrology for contraction alkalosis. He has received 3 doses of diamox. Urine output 1350 mL yesterday -760 mL. He is -4.5L LOS. ABG today with pH of 7.47, PCO2 63.5, PO2 71 at PEEP of 5 and FiO2 of 0.45. PACs and short runs of PSVT noted on telemetry. Medications: Reviewed: Yes Medication Review Details: Current Medications Albuterol/Ipratropium (Ipratropium-Albuterol 3 Ml Neb) 3 ml INHALATION Q4H.RESPIRATORY PRN PRN Reason: SHORTNESS OF BREATH Last Admin: 07/10/20 07:58 Dose: 3 ml Documented by: Budesonide (Budesonide 0.5 Mg/2 Ml Neb) 0.5 mg INHALATION BID.RESPIRATORY VIMAL Last Admin: 07/10/20 07:58 Dose: 0.5 mg Documented by: Famotidine (Famotidine 20 Mg/2 Ml Inj) 20 mg IVP Q12H VIMAL Last Admin: 07/10/20 05:07 Dose: 20 mg Documented by: Heparin Sodium (Beef Lung) (Heparin 5,000 Unit/Ml Inj 1 Ml) 5,000 unit SUBCUT Q8H [facility] Last Admin: 07/10/20 10:22 Dose: 5,000 unit Documented by: Rocuronium [place] 250 mg/ (Sodium Chloride) 250 mls @ 0 mls/hr IV .Q0M VIMAL; Protocol Norepinephrine Bitartrate 4 mg (/ Dextrose) 254 mls @ 0 mls/hr IV .Q0M VIMAL; Protocol Last Titration: 07/09/20 09:14 Dose: 0 mcg/min, 0 mls/hr Documented by: Dexmedetomidine HCl 400 mcg/ (Sodium Chloride) 104 mls @ 0 mls/hr IV .Q0M VIMAL; Protocol Last Titration: 07/10/20 02:22 Dose: 0 mcg/kg/hr, 0 mls/hr Documented by: Imipenem/Cilastatin Sodium 500 (mg/ Sodium Chloride) 100 mls @ 200 mls/hr IV Q6H VIMAL; Protocol Last Infusion: 07/10/20 11:00 Dose: Infused Documented by: Fentanyl 1,000 mcg/ Sodium (Chloride) 100 mls @ 0 mls/hr IV .Q0M VIMAL; Protocol Methylprednisolone Sodium Succinate (Methylprednisolone Sod Succ 40 Mg/Ml Inj) 40 mg IVP Q8H [facility] Last Admin: 07/10/20 04:43 Dose: 40 mg Documented by: Ondansetron HCl (Ondansetron 2 Mg/Ml Sdv 2 Ml) 4 mg IVP Q6H PRN PRN Reason: NAUSEA AND VOMITING Vitals/I&O/Wt Last Vital Signs Temp 98.5 F 07/10/20 08:00 Pulse 59 L 07/10/20 10:30 Resp 20 H 07/10/20 11:12 BP 130/70 07/10/20 10:30 Pulse Ox 91 07/10/20 10:30 07/09/20 07/10/20 07/10/20 22:59 06:59 14:59 Intake Total 185.96 / 286.815 300.048 / 586.863 Output Total 350 / 700 650 / 1350 250 / 250 Balance -164.04 / -413.185 -349.952 / -763.137 -250 / -250 Weight last 48 hrs Weight 255 lb 6 oz Weight 243 lb 7 oz Physical Exam Narrative: EXAM NARRATIVE: GENERAL: Patient is intubated on vent and sedated. NECK: No jugular vein distension appreciated. HEENT: No cyanosis. No icterus. No pallor. HEART: Regular S1 and S2. No murmur, rub or gallop. LUNGS: Clear to auscultate bilaterally anteriorly ABDOMEN: Soft, nondistended. CENTRAL NERVOUS SYSTEM: sedated EXTREMITIES: Lower extremities trace-1+ edema bilaterally. Bilateral leg chronic discoloration Urinary Catheter Management^: [place]: Cath Placed During This Visit: yes Reason for Continuing Indwelling Catheter: Accurate Measurement of Urinary Output in Critically Ill Patients Urinary Catheter Date of Insertion: 07/05/20 Urinary Catheter Time of Insertion: 15:50 Data : 07/09/20 04:13 07/10/20 10:00 Other Labs: Laboratory Tests 07/05/20 07/05/20 07/08/20 15:00 15:00 04:12 Sodium 125 L Carbon Dioxide 32 H BUN 136 H* D Creatinine 3.0 H AST 76 H 31 ALT 397 H 126 H Alkaline Phosphatase 186 H 118 Troponin T Baseline 474 H* Attestation for Other Data: I personally reviewed and interpreted the following: Other data: # TTE ( 06/2020) CONCLUSIONS Diffuse hypokinesia of the left ventricle with ejection fraction of around 30%. Moderate left ventricular hypertrophy. Dilated right ventricle with a severe diffuse hypokinesia, features suggesting ventricular pressure overload Mildly dilated right atrium. Could not estimate the PA pressure because of the poor Doppler signals Minimally thickened aortic and mitral valves. There is no pericardial effusion. There are no intracardiac masses. No previous studies available for comparison. #CTA chest 08 July 2020 IMPRESSION: 1. No pulmonary embolism identified. 2. Short segment bilateral lower lobe probable endobronchial mucous plugging. 3. Bilateral lower lobe partial atelectasis, sparing the superior segment. 4. Small left pleural effusion. 5. Coronary atherosclerosis. 6. Left adrenal nodule, stable. 7. Prior cholecystectomy. 8. Minimal nonspecific right subdiaphragmatic ascites. A&P Assessment and plan (1) Cardiomyopathy: newly diagnosed drop in LV function. -echo was ordered but was never scheduled as outpatient -He will require further w/u once stable. Status: Acute Qualifiers: Cardiomyopathy type: unspecified Qualified Code(s): I42.9 - Cardiomyopathy, unspecified (2) Acute cor pulmonale: Most likely secondary to COPD; CT scan negative for PE Status: Acute (3) Acute renal failure: Improved. Nephrology is on board Status: Acute Qualifiers: Acute renal failure type: with acute tubular necrosis Qualified Code(s): N17.0 - Acute kidney failure with tubular necrosis (4) Elevated troponin: Status: Acute Additional A&P Information Acute on chronic respiratory failure HTN Chronic respiratory failure COPD PAD SCC of vocal cord MANISH Abnormal liver enzymes Hypokalemia HYpomagnesemia Attestations Medical Necessity Statement*: remains intubated and in ICU Coding Level of Care Code Acute Relationship Management Lead for [facility] Fwd Diagnoses Cardiomyopathy I42.9 Cardiomyopathy type: unspecified Acute cor pulmonale I26.09 Acute renal failure N17.0 Acute renal failure type: with acute tubular necrosis Elevated troponin R77.8
--- NOTE | 2020-07-10 14:13 | PM.PN ---
Subjective Subjective: Interval history: Background: This is a 70-year-old gentleman well-known to me from his multiple office visit in the past. In short, the patient has very severe airflow obstruction on pulmonary function test, gold class D COPD, chronic hypoxic and hypercapnic respiratory failure. As outpatient, the patient is on triple nebulized therapy, chronic antibiotic therapy for suppression of recurrent exacerbation. Over the past few months, the patient has been suffering from cor pulmonale. I had diurese the patient with Lasix and metolazone as outpatient. The patient had reported significant improvement over the months however it appears that lately the patient's respiratory status was getting worse. The patient presented to the hospital on July 05 with acute on chronic hypoxic and hypercapnic respiratory failure requiring intubation mechanical ventilation. An echocardiogram performed at that time revealed reduction of LV function as well as RV dysfunction with suspicion for pressure and volume overload. A diagnosis of pulmonary embolism was suspected. Since then, the patient had been adequately diuresed, a CT angiogram did not reveal any evidence of pulmonary embolism. Currently the patient is on pressure support ventilation. The primary problem right now is metabolic alkalosis secondary to diuresis. The patient baseline CO2 is in the 60s. His baseline bicarbonate level is low 30s. The patient underwent aggressive diuresis with subsequent development of hyponatremia as well as metabolic alkalosis. His bicarbonate level today is 45. The patient had been receiving oral acetazolamide for the past couple of days. His arterial blood gas this morning revealed a pH of 7.47, PCO2 of 63.5, PO2 of 70 on 45% FiO2. The patient was seen and examined in ICU. Was able to respond to my vocal commands. He appeared comfortable. Medications: Reviewed: Yes Vitals/I&O/Wt Last Vital Signs Temp 98.7 F 07/10/20 12:00 Pulse 94 07/10/20 13:52 Resp 15 07/10/20 13:52 BP 108/68 07/10/20 13:00 Pulse Ox 92 07/10/20 13:52 07/09/20 07/10/20 07/10/20 22:59 06:59 14:59 Intake Total 185.96 / 286.815 300.048 / 586.863 100 / 100 Output Total 350 / 700 650 / 1350 500 / 500 Balance -164.04 / -413.185 -349.952 / -763.137 -400 / -400 Weight last 48 hrs Weight 255 lb 6 oz Weight 243 lb 7 oz Physical Exam Narrative: EXAM NARRATIVE: General: Patient is intubated and able to follow simple commands Neck: Jugular venous distention Respiratory: Auscultation: Reduced breath sound bilaterally, no crackles or wheezing occasional rhonchi Cardiovascular: Regular rate and rhythm, S1-S2 present, bilateral peripheral edema Abdomen: Soft, nontender, nondistended, positive bowel sound Skin: Mild redness in bilateral lower extremity Neuro: Patient is intubated and sedated, able to follow simple commands Urinary Catheter Management^: [place]: Cath Placed During This Visit: yes Reason for Continuing Indwelling Catheter: Accurate Measurement of Urinary Output in Critically Ill Patients Urinary Catheter Date of Insertion: 07/05/20 Urinary Catheter Time of Insertion: 15:50 Data : 07/09/20 04:13 07/10/20 10:00 Attestation for Other Data: I personally reviewed and interpreted the following: Other data: I have reviewed the patient laboratory microbiologic and radiologic data. His mild leukocytosis likely secondary to corticosteroid therapy. The patient has hypernatremia and metabolic alkalosis with elevated BUN. A&P Assessment and plan (1) Cor pulmonale: This is a 70-year-old gentleman with severe airflow obstruction, chronic hypoxic and hypercapnic respiratory failure was hospitalized with acute on chronic worsening of cor pulmonale. Initially, there was a concern for pulmonary embolism however on the CT angiogram there was no evidence of that. The patient had initially received full dose anticoagulation therapy and currently on prophylactic dose heparin. The patient had been diuresed well. The patient is several liters negative with the diuresis. He still has moderate degree of bilateral lower extremity swelling. As result of the diuresis, the patient has developed hyponatremia and metabolic alkalosis. Status: Acute (2) Hypernatremia: I am going to start the patient on free water flush to 250cc every 6 hours. We will get a BMP at 10 PM tonight. Status: Acute (3) Metabolic alkalosis: The etiology of the alkalosis is primarily metabolic alkalosis. I have reviewed the patient's past medical record. His baseline CO2 is 60 and baseline bicarb level is low 30s. Given the current bicarb level of 45 and a PCO2 level of 63 the patient is likely trying to compensate for the metabolic alkalosis. At this point, I am going to give the patient a one-time IV dose of acetazolamide which will likely decrease the serum bicarbonate level and the level of the metabolic alkalosis. The patient is on pressure support ventilation and I am hoping that he will be able to compensate and bring his pH down to closer to 7.33 which is his baseline. Status: Acute (4) Acute respiratory failure with hypoxia and hypercapnia: The patient is currently getting treated for an episode of COPD exacerbation. He has been receiving corticosteroid Solu-Medrol 40 mg 3 times a day. I have cut it down to 40 mg daily starting tomorrow morning. There is no evidence of any skin and soft tissue infection. No evidence of resistant gram-negative or MRSA infection. The patient will receive levofloxacin for total of 3 days which will complete a 7-day therapy. Status: Acute (5) COPD (chronic obstructive pulmonary disease): The patient is currently on DuoNeb and Pulmicort. I am hoping to extubate the patient tomorrow morning. Status: Chronic Qualifiers: COPD type: unspecified COPD Qualified Code(s): J44.9 - Chronic obstructive pulmonary disease, unspecified Attestations Medical Necessity Statement*: Defer to the primary team Coding Level of Care Code Acute Otr [employer] for [facility] Diagnoses Cor pulmonale I27.81 Hypernatremia E87.0 Metabolic alkalosis E87.3 Acute respiratory failure with hypoxia and hypercapnia J96.01; J96.02 COPD (chronic obstructive pulmonary disease) J44.9 COPD type: unspecified COPD
--- NOTE | 2020-07-10 14:16 | P.PN_ITS ---
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 History was obtained from review of records and discussion with ER staff. Patient was apparently found to have oxygen saturation in mid 70s with increasing o2 requirement. Upon arrival to ER he was placed on BiPAP. Initial laboratory work up showed a WBC of 11.1, hemoglobin of 14.0, hematocrit 44.5 and platelet count of 183. Sodium 125, potassium 4.6, chloride 77, bicarb 32, BUN 136 and creatinine of 3.0. Lactic acid of 2.0. AST of 76, ALT of 397 and alkaline phosphatase of 186. Troponin T 474 - > 480.6, Delta troponin T of 6.6. ProBNP of 20,006. INR of 1.65, D-dimer of 2.84. Initial ABG on BiPAP of 7.33, PCO2 of 72.8, Po2 of 89.6, bicarb of 37.9. Patient was not tolerating Bipap due to agitation. He was subsequently intubated on placed on mechanical ventilation. Was noted to have hypotension as well after sedative medications for which he was started on Levophed. He was placed on versed and f entanyl for sedation. Imaging studies included a chest x-ray which showed cardiomegaly, pulmonary v ascularity appeared normal with no evidence of pneumothorax or infiltrates. Head CT was also ordered and pending at the time of my eval. In addition to above patient was also given Lasix 40 mg IV x 1 and Levaquin 750 mg IV x 1. Upon admission he was started on broad spectrum antibiotics for suspected R>L cellulitis however patient did have underlying dependent rubra with chronic lymphedema/wounds. Blood cultures were drawn. Due to elevated troponin the trend of which was not indicative of acs he was started on heparin gtt. Also due to elevated d-dimer with inablity to entirely rule out acute PE however given the decrease of hypoxemia with out any chest x-ray findings of pulmonary edema possiblity of acute PE was high. Nephrology was also consulted due to worsening acute renal function. He was given lasix in ER however appeared for me intravascularly dry. Was started on IVF. He continued to require levophed to mantain MAP of greater than 65. 07/06/20 Overnight patient remained intubated on mechanical vent. He was started on broad spectrum antibiotics for suspected R>L cellulitis however patient did have underlying dependent rubra with chronic lymphedema/wounds. Blood cultures were drawn. Due to elevated troponin the trend of which was not indicative of acs he was started on heparin gtt. Also due to elevated d-dimer with inablity to entirely rule out acute PE however given the decrease of hypoxemia with out any chest x-ray findings of pulmonary edema possiblity of acute PE was high. Nephrology was also consulted due to worsening acute renal function. He was given lasix in ER however was started on IV fluids after seen by Nephrology. 07/07/2020 Patient was started on IV Lasix last evening. Noted to have 6 L urine output. Was weaned off her sed and transition to Precedex. Of 2 sets remained stable. Continue to require IV Levophed. 07/08/2020 Overnight no new clinical events. Patient remained on FiO2 of 50%. Noted to have 1400 mL output overnight. In a.m. he was weaned off Precedex. Did not have any fever overnight. Remained on low-dose of Precedex. Lasix were held by nephrology. Was given a dose of diamox. CT chest PE protocol was performed whi ch did not show any evidence of acute embolism. heparin drip was discontinued. 07/09/2020 No clinical events overnight, patient was weaned off sedation and on pressure support this am, still very drowsy. Fio2 was weaned to 45%, PEEP of 5. Was arousable however with stimulation and followed commands. Would fall back asleep. 07/10/2020 No new clinical events overnight. Patient was at MMV. FiO2 of 45%. Peep of 5. Was off sedation. Medications: Reviewed: Yes Medication Review Details: Current Medications Albuterol/Ipratropium (Ipratropium-Albuterol 3 Ml Neb) 3 ml INHALATION Q4H. RESPIRATORY PRN PRN Reason: SHORTNESS OF BREATH Last Admin: 07/10/20 07:58 Dose: 3 ml Documented by: Budesonide (Budesonide 0.5 Mg/2 Ml Neb) 0.5 mg INHALATION BID.RESPIRATORY VIMAL Last Admin: 07/10/20 07:58 Dose: 0.5 mg Documented by: Famotidine (Famotidine 20 Mg/2 Ml Inj) 20 mg IVP Q12H VIMAL Last Admin: 07/10/20 05:07 Dose: 20 mg Documented by: Heparin Sodium (Beef Lung) (Heparin 5,000 Unit/Ml Inj 1 Ml) 5,000 unit SUBCUT Q8H VIMAL Last Admin: 07/10/20 10:22 Dose: 5,000 unit Documented by: Rocuronium [place] 250 mg/ (Sodium Chloride) 250 mls @ 0 mls/hr IV .Q0M VIMAL; Protocol Norepinephrine Bitartrate 4 mg (/ Dextrose) 254 mls @ 0 mls/hr IV .Q0M VIMAL; Protocol Last Titration: 07/09/20 09:14 Dose: 0 mcg/min, 0 mls/hr Documented by: Dexmedetomidine HCl 400 mcg/ (Sodium Chloride) 104 mls @ 0 mls/hr IV .Q0M VIMAL; Protocol Last Titration: 07/10/20 02:22 Dose: 0 mcg/kg/hr, 0 mls/hr Documented by: Imipenem/Cilastatin Sodium 500 (mg/ Sodium Chloride) 100 mls @ 200 mls/hr IV Q6H VIMAL; Protocol Last Infusion: 07/10/20 11:00 Dose: Infused Documented by: Fentanyl 1,000 mcg/ Sodium (Chloride) 100 mls @ 0 mls/hr IV .Q0M VIMAL; Protocol Methylprednisolone Sodium Succinate (Methylprednisolone Sod Succ 40 Mg/Ml Inj) 40 mg IVP Q8H VIMAL Last Admin: 07/10/20 04:43 Dose: 40 mg Documented by: Ondansetron HCl (Ondansetron 2 Mg/Ml Sdv 2 Ml) 4 mg IVP Q6H PRN PRN Reason: NAUSEA AND VOMITING Vitals/I&O/Wt Last Vital Signs Temp 98.7 F 07/10/20 12:00 Pulse 94 07/10/20 13:52 Resp 15 07/10/20 13:52 BP 108/68 07/10/20 13:00 Pulse Ox 92 07/10/20 13:52 07/09/20 07/10/20 07/10/20 22:59 06:59 14:59 Intake Total 185.96 / 286.815 300.048 / 586.863 100 / 100 Output Total 350 / 700 650 / 1350 500 / 500 Balance -164.04 / -413.185 -349.952 / -763.137 -400 / -400 Weight last 48 hrs Weight 115.836 kg Weight 110.421 kg Physical Exam Narrative: EXAM NARRATIVE: General : Intubated on MV HEENT - ET tube at 22 Chest - vented sounds CVS : Distant heart sounds ABD ; Non-distended Ext : Bilateral LE with chronic wound, dependent rubra L>R Neuro: unable to assess Urinary Catheter Management^: [place]: Cath Placed During This Visit: yes Reason for Continuing Indwelling Catheter: Accurate Measurement of Urinary Output in Critically Ill Patients Urinary Catheter Date of Insertion: 07/05/20 Urinary Catheter Time of Insertion: 15:50 Data : 07/09/20 04:13 07/10/20 10:00 A&P Assessment and plan (1) Acute respiratory failure with hypoxia and hypercapnia: Status: Acute (2) Acute renal failure: Status: Acute Qualifiers: Acute renal failure type: with acute tubular necrosis Qualified Code(s): N17.0 - Acute kidney failure with tubular necrosis (3) Cellulitis: Status: Acute Qualifiers: Site of cellulitis: extremity Site of cellulitis of extremity: lower extremity Laterality: unspecified laterality Qualified Code(s): L03.119 - Cellulitis of unspecified part of limb (4) Chronic respiratory failure: Status: Acute (5) PAD (peripheral artery disease): Status: Acute (6) Mixed hyperlipidemia: Status: Acute (7) Lesion of true vocal cord: Status: Acute (8) Chronic bilateral low back pain: Status: Chronic Qualifiers: Sciatica presence: with sciatica Sciatica laterality: bilateral sciatica Qualified Code(s): M54.42 - Lumbago with sciatica, left side; M54.41 - Lumbago with sciatica, right side; G89.29 - Other chronic pain (9) Lower extremity edema: Status: Chronic (10) Transaminitis: Status: Acute (11) COPD (chronic obstructive pulmonary disease): Status: Chronic Qualifiers: COPD type: unspecified COPD Qualified Code(s): J44.9 - Chronic obstructive pulmonary disease, unspecified (12) Hyponatremia: Status: Acute Acute on chronic hypoxemic hypercapnia respiratory failure - On 6 L of o2 at baseline - Intubated on MV on arrival - Fentanyl / Precedex - Chest x-ray in am - CTA chest - no PE - Duoneb q6r scheduled - Pulmicort 0.5 mg INH BID - Solu-medrol 40 mg IV q8hr - Wean Fio2 currently at 45%, PCV. RR 12. - D/w pulmonary - will continue vent - Attempt to extubate in am 02/Steroid dependent COPD exacerbation - Management as noted above - Low suspicion of underlying bacterial pneumonia - Empirically on abx - Primexin - Will de-escalate baseline on clinical course Acute systolic HF with cor pulmonale - Cardiomegaly noted on chest x-ray - Improving LE edema - Lasix 40 mg IV BID ordered - held by nephro on 07/07 - On Diamox - ECHO - EF 45, with severe RV dysfunction - ProBMP - - Net negative balance - Replace Lytes Non-ST elevation NV - Likely type 2, trend not consistent with ACS - Troponin 474 ->480-> 426 - Cardiology consulted - ECHO noted - no RWM abnormality - Will likely require ischemic work up once stable Acute renal failure / Hypochloremic Metabolic alkalosis - Creatinine 3.0 > 2.0 - > 1.2 - 1.0 - 0.8 - CK 832 - 650 cc outut overnight - u/o 0.25 ml/kg/hr - BMP in am - Nephrology on board - lasix was stopped on diamox Hypokalemia, Hypomagnesemia - continue replacement - BMP in am - Mg level in am Elevated D-Dimer - PE ruled out - Discontinue Heparin gtt -heparin 5000 units Q8hr for dvt ppx Elevated LFTs - Improving - Etiology likely due to right heart failure/passive congestion - AST 76-59 - 31 - ALT 397-257 - 126 - Hepatitis panel negative - CT abd/pelvis - stable Additional medical History Vocal cord malignancy s/p Chemo-radiation Hx of Colon cancer s/p p.colectomy Obstructive sleep apnea Peripheral arterial disease Polyneuropathy Gasteroesophageal reflux disease disease DVT ppx on heparin gtt Attestations Medical Necessity Statement*: Continue hospitalization for management of hypox ic respiratory failure requiring mechanical ventilation Time Spent in Patient Care: Greater than 35 minutes Coding Level of Care Code Acute Barometers Calibrator for [facility] Diagnoses Acute respiratory failure with hypoxia and hypercapnia J96.01; J96.02 Acute renal failure N17.0 Acute renal failure type: with acute tubular necrosis Cellulitis L03.119 Site of cellulitis: extremity Site of cellulitis of extremity: lower extremity Laterality: unspecified laterality Chronic respiratory failure J96.10 PAD (peripheral artery disease) I73.9 Mixed hyperlipidemia E78.2 Lesion of true vocal cord J38.3 Chronic bilateral low back pain M54.42; M54.41; G89.29 Sciatica presence: with sciatica Sciatica laterality: bilateral sciatica Lower extremity edema R60.0 Transaminitis R74.01 COPD (chronic obstructive pulmonary disease) J44.9 COPD type: unspecified COPD Hyponatremia E87.1
[2020-07-10] MEDS: acetaZOLAMIDE 250 mg Tablet 500 MG PO (15:43)
[2020-07-10] MEDS: levoFLOXacin 750 mg Tablet PO (17:43)
[2020-07-10 22:37] LABS: Anion Gap 9.8 (5-19); Blood Urea Nitrogen 72 mg/dL (8-23); Calcium 8.9 mg/dL (8.5-10.5); Chloride 102 mmol/L (98-107); Glomerular Filtration Rate 96.1 mL/min (90-130); Glucose 151 mg/dL (65-115); Osmolality Calculated 334 mOsm/kg (285-295); Phosphorus 3.7 mg/dL (2.5-4.5); Sodium 150 mmol/L (136-145)
[2020-07-10 22:41] LABS: Carbon Dioxide 41 mmol/L (22-29); Potassium 2.8 mmol/L (3.5-5.1)
[2020-07-10] MEDS: potassium chloride premix 100 ML 25 MEQ IV (22:52)
[2020-07-11] VITALS (58 sets, daily range): BP systolic 68–161; BP diastolic 42–105; PULSE 53–143; RESP 10–26; TEMP 36.4–38.1; O2SAT 85–94
[2020-07-11] MEDS: heparin 5,000 unit/mL INJ 1 mL 5000 UNIT SUBCUT ×3 (02:43→17:56)
[2020-07-11] MEDS: potassium chloride premix 100 ML 25 MEQ IV (02:43)
[2020-07-11 04:57] LABS: ABG PCO2 58.1 mmHg (35-45); ABG PH Result 7.45 (7.35-7.45); Arterial Blood Gas Hematocrit 48.7 % (42-52); Base Excess ABG 13.6 mmol/L (-2.0-2.0); Blood Gas Sample Site Brachial, left; Blood Gas Sample Type Arterial; Blood Gas Tidal Volume 0.45; HCO3 ABG 40.7 mmol/L (22-26); Oxygen Device VENT; PO2 ABG 74.3 mmHg (80.0-100.0)
[2020-07-11] MEDS: famotidine 20 mg/2 mL INJ IVP ×2 (05:06→17:55)
[2020-07-11] MEDS: levoFLOXacin 750 mg Tablet PO (05:06)
[2020-07-11 05:09] LABS: Basophils % 0.1 %; Eosinophils % 0.1 %; Hematocrit 52.7 % (42.0-52.0); Hemoglobin 15.1 g/dL (11.7-16.6); Lymphocytes # 0.5 10^3/uL (0.8-4.8); Lymphocytes % 2.5 %; Mean Corpuscular HGB Conc 28.7 g/dL (30.0-36.0); Mean Corpuscular Volume 97.6 fL (80-94); Mean Platelet Volume 11.6 fL (7.4-10.4); Monocytes # 0.9 10^3/uL (0.2-0.9); Monocytes % 4.6 %; Neutrophils # 17.55 10^3/uL (1.8-7.7); Neutrophils % 91.4 %; Nucleated Red Blood Cells % 0 %; Platelet Count 98 10^3/cmm (130-400); White Blood Count 19.2 10^3/uL (4.0-10.0)
[2020-07-11 05:38] LABS: Alanine Aminotransferase 43 U/L (0-41); Albumin Level 2.9 g/dL (3.5-5.2); Alkaline Phosphatase 97 IU/L (40-130); Anion Gap 8.4 (5-19); Aspartate Amino Transferase 35 U/L (0-40); Blood Urea Nitrogen 69 mg/dL (8-23); Carbon Dioxide 40 mmol/L (22-29); Chloride 105 mmol/L (98-107); Globulin 2.7 g/dL (1.3-4.6); Glomerular Filtration Rate 96.1 mL/min (90-130); Glucose 133 mg/dL (65-115); Osmolality Calculated 332 mOsm/kg (285-295); Potassium 3.4 mmol/L (3.5-5.1); Sodium 150 mmol/L (136-145); Total Bilirubin 1.1 mg/dL (0.15-1.2); Total Protein 5.6 g/dL (6.6-8.7)
[2020-07-11] MEDS: LORazepam 2 mg/mL INJ 1 mL 4 MG IVP (05:55)
--- NOTE | 2020-07-11 07:00 | XR_ITS ---
WS: [id number] Exam: XR chest 1V portable [id number] Date/Time of Exam: 07/11/2020 7:00 AM Reason For Exam: respiratory failure Comparison 07/08/2020. ET tube is in place in satisfactory position. An NG tube extends to the below the diaphragm but the t ip is not visible. Increasing infiltrate in the left lower lobe since prior study. The heart is enlar ged. Pulmonary vascularity is increased. Small bibasal pleural effusions unchanged. No pneumothorax. A right-sided PICC line ends in the lower one third of the SVC in good position. Monitoring leads sup erimpose the chest. XR/XR chest 1V portable [id number] IMPRESSION: 1. Increasing infiltrate and atelectasis in the left lower lobe since prior ki dy. 2. Cardiac enlargement with increased pulmonary vascularity. Some degree of car diac decompensation is suggested. 3. Small bibasal pleural effusions most marked on the left.
[2020-07-11] MEDS: budesonide 0.5 mg/2 mL Neb INHALATION ×2 (07:24→19:29)
[2020-07-11] MEDS: ipratropium-albuterol 3 mL Neb INHALATION ×4 (07:24→19:29)
--- NOTE | 2020-07-11 08:13 | P.PN_ITS ---
Subjective Subjective: Interval history: The patient was seen and examined this morning. Overnight, the patient did well. He was more awake responsive. Appears that this morning the patient was agitated, wanted to get extubated. He was sedated with fentanyl and Ativan by the overnight team. This morning when I examined the patient he was not responsive. The patient is on pressure support ventilation. His blood gas this morning revealed a pH of 7.45, PCO2 of 58, PO2 of 74 on 45% FiO2. Sodium is 150. Overall, the patient was about 500 cc negative yesterday. He received a total of 750 mg of acetazolamide. Medications: Reviewed: Yes Vitals/I&O/Wt Last Vital Signs Temp 97.6 F 07/11/20 04:00 Pulse 95 07/11/20 07:35 Resp 19 H 07/11/20 07:36 BP 161/104 07/11/20 06:00 Pulse Ox 90 07/11/20 07:35 07/10/20 07/11/20 07/11/20 22:59 06:59 14:59 Intake Total 536.373 / 491.161 7482.25 / 1692.623 Output Total 1250 / 1750 650 / 2400 Balance -713.627 / -1113.627 406.25 / -707.377 Weight last 48 hrs Weight 257 lb Weight 255 lb 6 oz Physical Exam Narrative: EXAM NARRATIVE: General: Patient is intubated, was sedated, not following any commands Neck: Jugular venous distention Respiratory: Auscultation: Reduced breath sound bilaterally, no crackles or wheezing or rhonchi Cardiovascular: Regular rate and rhythm, S1-S2 present, bilateral peripheral edema Abdomen: Soft, nontender, nondistended, positive bowel sound Skin: Mild redness in bilateral lower extremity Neuro: Patient is unresponsive at this time Urinary Catheter Management^: [place]: Cath Placed During This Visit: yes Reason for Continuing Indwelling Catheter: Accurate Measurement of Urinary Output in Critically Ill Patients Urinary Catheter Date of Insertion: 07/05/20 Urinary Catheter Time of Insertion: 15:50 Data : 07/11/20 04:46 07/11/20 04:46 Micro: Microbiology 07/05/20 15:00 Blood Culture - Final Blood NO GROWTH AFTER 5 DAYS 07/05/20 15:10 Blood Culture - Final Blood NO GROWTH AFTER 5 DAYS Attestation for Other Data: I personally reviewed and interpreted the following: Other data: I have reviewed the patient laboratory microbiologic and radiologic data. Overall the metabolic alkalosis is slowly getting better. His serum bicarbonate level today is 40. His serum sodium is 150 this morning. All microbiologic studies have been negative. A&P Assessment and plan (1) Cor pulmonale: This is a 70-year-old gentleman with severe airflow obstruction, chronic hypoxic and hypercapnic respiratory failure was hospitalized with acute on chronic worsening of cor pulmonale. Initially, there was a concern for pulmonary embolism however on the CT angiogram there was no evidence of that. The patient had initially received full dose anticoagulation therapy and currently on prophylactic dose heparin. The patient had been diuresed well. The patient is several liters negative with the diuresis. He still has moderate degree of bilateral lower extremity swelling. As result of the diuresis, the patient has developed hyponatremia and metabolic alkalosis. The metabolic alkalosis is better this morning after he was given acetazolamide yesterday however he still has a component of metabolic alkalosis. He is pH is 7.45 today. Status: Acute (2) Hypernatremia: The patient is going to need optimization of the free water regimen once he is extubated. Status: Acute (3) Metabolic alkalosis: The patient will need further diuresis when he is extubated. This is going to require a combination of loop diuretics and likely as needed acetazolamide. Status: Acute (4) Acute respiratory failure with hypoxia and hypercapnia: The primary objective at this point is to extubate the patient. Unfortunately, the patient had received sedative medications this morning and is unresponsive at this time. All his sedations have been turned off. I am hoping, that the patient will be more awake in the near future and will be ready to extubate him. Once we are able to extubate the patient, will optimize his diuretic regimen. Currently the patient is getting steroid and antibiotic therapy empirically. Status: Acute (5) COPD (chronic obstructive pulmonary disease): The patient is currently on DuoNeb and Pulmicort. Status: Chronic Qualifiers: COPD type: unspecified COPD Qualified Code(s): J44.9 - Chronic obstructive pulmonary disease, unspecified Attestations Medical Necessity Statement*: Will defer to the primary team Coding Level of Care Code Acute Security Systems Administrator for Chg Fwd Diagnoses Cor pulmonale I27.81 Hypernatremia E87.0 Metabolic alkalosis E87.3 Acute respiratory failure with hypoxia and hypercapnia J96.01; J96.02 COPD (chronic obstructive pulmonary disease) J44.9 COPD type: unspecified COPD
[2020-07-11] MEDS: potassium chloride oral liq 20 mEq/15 mL UDC 40 MEQ PO (08:41)
--- NOTE | 2020-07-11 08:52 | PM.PN ---
Subjective Subjective: Interval history: sedated, intubated, low dose pressers. unable to obtain ROS Medications: Reviewed: Yes Medication Review Details: Current Medications Albuterol/Ipratropium (Ipratropium-Albuterol 3 Ml Neb) 3 ml INHALATION Q4H.RESPIRATORY PRN PRN Reason: SHORTNESS OF BREATH Last Admin: 07/11/20 07:24 Dose: 3 ml Documented by: Budesonide (Budesonide 0.5 Mg/2 Ml Neb) 0.5 mg INHALATION BID.RESPIRATORY VIMAL Last Admin: 07/11/20 07:24 Dose: 0.5 mg Documented by: Famotidine (Famotidine 20 Mg/2 Ml Inj) 20 mg IVP Q12H VIMAL Last Admin: 07/11/20 05:06 Dose: 20 mg Documented by: Heparin Sodium (Beef Lung) (Heparin 5,000 Unit/Ml Inj 1 Ml) 5,000 unit SUBCUT Q8H VIMAL Last Admin: 07/11/20 02:43 Dose: 5,000 unit Documented by: Norepinephrine Bitartrate 4 mg (/ Dextrose) 254 mls @ 0 mls/hr IV .Q0M VIMAL; Protocol Last Titration: 07/11/20 08:32 Dose: 1 mcg/min, 3.8 mls/hr Documented by: Dexmedetomidine HCl 400 mcg/ (Sodium Chloride) 104 mls @ 0 mls/hr IV .Q0M VIMAL; Protocol Last Titration: 07/10/20 18:05 Dose: 0.2 mcg/kg/hr, 5.9 mls/hr Documented by: Fentanyl 1,000 mcg/ Sodium (Chloride) 100 mls @ 0 mls/hr IV .Q0M VIMAL; Protocol Last Admin: 07/11/20 01:55 Dose: 25 mcg/hr, 2.5 mls/hr Documented by: Levofloxacin (Levofloxacin 750 Mg Tablet) 750 mg PO DAILY@0600 VIMAL; Protocol Last Admin: 07/11/20 05:06 Dose: 750 mg Documented by: Methylprednisolone Sodium Succinate (Methylprednisolone Sod Succ 40 Mg/Ml Inj) 40 mg IVP DAILY [facility] Vitals/I&O/Wt Last Vital Signs Temp 97.6 F 07/11/20 04:00 Pulse 95 07/11/20 07:35 Resp 19 H 07/11/20 07:36 BP 161/104 07/11/20 06:00 Pulse Ox 90 01/27/21 07:35 07/10/20 07/11/20 07/11/20 22:59 06:59 14:59 Intake Total 536.373 / 943.215 0078.25 / 1692.623 11.653 / 11.653 Output Total 1250 / 1750 650 / 2400 Balance -713.627 / -1113.627 406.25 / -707.377 11.653 / 11.653 Weight last 48 hrs Weight 116.573 kg Weight 115.836 kg Physical Exam Narrative: EXAM NARRATIVE: intubated cpap/ps 10/ peep 5, fio2 45% heent- ncat, eomi anicteric neck supple lungs ronchi, poor air movement heart reg abd soft, nt, nd, + bs ext no edema neuro- sedtaed, responsive skin no rashes Urinary Catheter Management^: [place]: Cath Placed During This Visit: yes Reason for Continuing Indwelling Catheter: Accurate Measurement of Urinary Output in Critically Ill Patients Urinary Catheter Date of Insertion: 07/05/20 Urinary Catheter Time of Insertion: 15:50 Data : 07/11/20 04:46 07/11/20 04:46 Micro: Microbiology 07/05/20 15:00 Blood Culture - Final Blood NO GROWTH AFTER 5 DAYS 07/05/20 15:10 Blood Culture - Final Blood NO GROWTH AFTER 5 DAYS A&P Additional A&P Information 1. Acute kidney injury renal function improved 2. metabolic alkalosis and hypernatremia- effective intravascular volume depletion- please inc water repletion 3. hypokalemia- replete and monitor. keep mag above >2 4. VDRF; weaning per pulm 5. thrombocytopenia meds reviewed Patient seen and examined via telemedicine, with the assistance of the bedside RN > 25 min spent in evaluation and mgmt of patient Attestations Medical Necessity Statement*: electrolyte abnormalities, vdrf, hypokalemia, met alkalosis, vdrf per pulm Time Spent in Patient Care: 16 - 35 minutes Coding Level of Care Code Acute Enterprise Application Architect for Seymour Whitfield
--- NOTE | 2020-07-11 09:14 | PC.NURSE ---
Med verification-headline writer had a [employer] student. Forgot to save med administration and through medication in red bin and trash. Unable to rescan.
--- NOTE | 2020-07-11 09:28 | PC.NURSE ---
Intake 250 mL of free water
--- NOTE | 2020-07-11 09:51 | PC.CHAP ---
Pastoral Care Encounter/Spiritual Assessment Type of Contact [] Declined kiln charger visit [] Patient/Family/Request visit [] Outpatient visit [] Follow-up visit [] Physician referral [] Code/Alert [x] Routine visit [] Staff referral [] Actively dying [] Patient sleeping [] Family support [] [] Out of room [] Palliative care [] [] Receiving care in room [] Pre-surgical visit [] Trauma [] Long length of stay [x] ICU visit [] Other: Relational/Emotional Strength [] Patient feels connected with others/family/visitors/staff [] Distress [] Loneliness/isolation [] Abandonment Spirituality of Patient [] Person of Jessica [] Attends Scientologist of their Jessica [] Believes in Prayer [] Reads Bible or Rastafarian materials [] There are Spiritual issues to be addressed Furnishings Conservator Interventions [x] Prayer [] Active listening [] Non-anxious presence [] Spiritual/emotional support [] Crisis/trauma care [] Spiritual counseling [] Bereavement support [] Provided bereavement packet [] Provided Bible/devotional materials [] Provided toy/stuffed animal, coloring book to patient or family member [] Provided Communion [] Anointing/[place] [] Salvation [x] Completed spiritual assessment [] Other: Impact on Illness or Injury [] Angry [] Fearful [] Anxious [] Often cries [] Exhaustion [] Unable to work [] Unable to attend taoist [] Unable to walk/stand [] Unable to read [] Unable to drive [] Unable to eat/drink [] Unable to sleep [] Unable to be with family [] Patient intubated [] Other: Summary prayer from door entry.. patient unable to respond in any way.. Time spent with patient 5 min
[2020-07-11 13:24] LABS: ABG PH Result 7.33 (7.35-7.45); Alveolar-Arterial Oxygen Gradi 21.5 mmHg (5-10); Base Excess ABG 10.2 mmol/L (-2.0-2.0); Blood Gas Allen Test Pos; Blood Gas Operator Identificat BD; Blood Gas Sample Site Brachial, left; Blood Gas Sample Type Arterial; Carboxyhemoglobin 1.3 %THgb (0.4-20.1); HCO3 ABG 40.2 mmol/L (22-26); Ionized Calcium Level - ABG 1.2 mmol/L (1.1-1.4); Methemoglobin 0.8 % (0.4-1.5); Oxygen Device VENT; Oxygen Saturation ABG 91.9; PO2 ABG 68.8 mmHg (80.0-100.0); Potassium Level - ABG 4.1 mmol/L (3.5-5.0); Total Hemoglobin 16.6 g/dL (14-18)
[2020-07-11 13:25] LABS: ABG PCO2 75.7 mmHg (35-45)
--- NOTE | 2020-07-11 14:03 | P.PN_ITS ---
Subjective Subjective: Interval history: 70 yo man with PMHx of severe emphysema oxygen dependent, lung cancer and colon cancer (transverse colon cancer s/p Sx in 08/2017) and h/o preserved LV function, PAD, smoker and chronic leg edema. 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 [place] [facility] [place] with complaints of resp iratory distress and altered mental status. He was intubated in the emergency room and is subsequently admitted to the hospital for further evaluation and management. He has been having worsening shortness of breath,swelling of the lower extremities for the last several months. He was taking diuretics as an outpatient for the swelling that did not help and as per UO decreased even more. On the day of admission, he was found to have altered mental status. For that reason, the EMS was called in. His oxygen saturation was around 70% based on the EMS records. Cardiology and renal were consulted. He received lasix 40 mg IV x 1 followed by 1 L IVF and then lasix 40 mg IV x1 on 07/06 and 07/07. He underwent echo that showed decreased LV function and RV function. CT chest PE protocol was performed which did not show any evidence of acute embolism. heparin drip was discontinued. 07/11/2020 Overnight no new clinical events. Patient remains on FiO2 of 45%. Lasix d/c ed by nephrology for contraction alkalosis. He received diamox 750 mg yesterday. Urine output 2400 mL yesterday -700 mL. He is -5.9L LOS. ABG this morning pH of 7.45, PCO2 58, PO2 74 on FiO2 0.45, PEEP of 5 PACs and short runs of PSVT noted on telemetry. He is currently in sinus tachycardia He was drowsy this morning after ativan for agitation early this morning and even off sedation his mental status did not improve completely. He is not following any commands and hence extubation was held. Medications: Reviewed: Yes Medication Review Details: Current Medications Albuterol/Ipratropium (Ipratropium-Albuterol 3 Ml Neb) 3 ml INHALATION Q4H.RESPIRATORY PRN PRN Reason: SHORTNESS OF BREATH Last Admin: 07/10/20 07:58 Dose: 3 ml Documented by: Budesonide (Budesonide 0.5 Mg/2 Ml Neb) 0.5 mg INHALATION BID.RESPIRATORY VIMAL Last Admin: 07/10/20 07:58 Dose: 0.5 mg Documented by: Famotidine (Famotidine 20 Mg/2 Ml Inj) 20 mg IVP Q12H VIMAL Last Admin: 07/10/20 05:07 Dose: 20 mg Documented by: Heparin Sodium (Beef Lung) (Heparin 5,000 Unit/Ml Inj 1 Ml) 5,000 unit SUBCUT Q8H VIMAL Last Admin: 07/10/20 10:22 Dose: 5,000 unit Documented by: Rocuronium [place] 250 mg/ (Sodium Chloride) 250 mls @ 0 mls/hr IV .Q0M VIMAL; Protocol Norepinephrine Bitartrate 4 mg (/ Dextrose) 254 mls @ 0 mls/hr IV .Q0M VIMAL; Protocol Last Titration: 07/09/20 09:14 Dose: 0 mcg/min, 0 mls/hr Documented by: Dexmedetomidine HCl 400 mcg/ (Sodium Chloride) 104 mls @ 0 mls/hr IV .Q0M VIMAL; Protocol Last Titration: 07/10/20 02:22 Dose: 0 mcg/kg/hr, 0 mls/hr Documented by: Imipenem/Cilastatin Sodium 500 (mg/ Sodium Chloride) 100 mls @ 200 mls/hr IV Q6H VIMAL; Protocol Last Infusion: 07/10/20 11:00 Dose: Infused Documented by: Fentanyl 1,000 mcg/ Sodium (Chloride) 100 mls @ 0 mls/hr IV .Q0M VIMAL; Protocol Methylprednisolone Sodium Succinate (Methylprednisolone Sod Succ 40 Mg/Ml Inj) 40 mg IVP Q8H VIMAL Last Admin: 07/10/20 04:43 Dose: 40 mg Documented by: Ondansetron HCl (Ondansetron 2 Mg/Ml Sdv 2 Ml) 4 mg IVP Q6H PRN PRN Reason: NAUSEA AND VOMITING Vitals/I&O/Wt Last Vital Signs Temp 99.1 F 07/11/20 13:00 Pulse 123 H 07/11/20 13:00 Resp 12 07/11/20 11:04 BP 134/86 07/11/20 13:00 Pulse Ox 92 07/11/20 13:00 07/10/20 07/11/20 07/11/20 22:59 06:59 14:59 Intake Total 536.373 / 396.139 6102.25 / 1692.623 261.653 / 261.653 Output Total 1250 / 1750 650 / 2400 700 / 700 Balance -713.627 / -1113.627 406.25 / -707.377 -438.347 / -438.347 Weight last 48 hrs Weight 257 lb Weight 255 lb 6 oz Physical Exam Narrative: EXAM NARRATIVE: GENERAL: Patient is intubated on vent. NECK: No jugular vein distension appreciated. HEENT: No cyanosis. No icterus. No pallor. HEART: Regular S1 and S2. No murmur, rub or gallop. LUNGS: Clear to auscultate bilaterally anteriorly ABDOMEN: Soft, nondistended. CENTRAL NERVOUS SYSTEM: Patient is not following commands, spontaneous movements of extremities + EXTREMITIES: Lower extremities 1+ edema bilaterally. Bilateral leg chronic discoloration Urinary Catheter Management^: [place]: Cath Placed During This Visit: yes Reason for Continuing Indwelling Catheter: Accurate Measurement of Urinary Output in Critically Ill Patients Urinary Catheter Date of Insertion: 07/05/20 Urinary Catheter Time of Insertion: 15:50 Data : 07/11/20 04:46 07/11/20 04:46 Micro: Microbiology 07/05/20 15:00 Blood Culture - Final Blood NO GROWTH AFTER 5 DAYS 07/05/20 15:10 Blood Culture - Final Blood NO GROWTH AFTER 5 DAYS A&P Assessment and plan (1) Cardiomyopathy: newly diagnosed drop in LV function. -echo was ordered but was never scheduled as outpatient -He will require further w/u once stable. Status: Acute Qualifiers: Cardiomyopathy type: unspecified Qualified Code(s): I42.9 - Cardiomyopathy, unspecified (2) Acute cor pulmonale: Most likely secondary to COPD; CT scan negative for PE Status: Acute (3) Acute renal failure: Improved. Nephrology is on board Status: Acute Qualifiers: Acute renal failure type: with acute tubular necrosis Qualified Code(s): N17.0 - Acute kidney failure with tubular necrosis (4) Elevated troponin: NSTEMI type II in setting of renal failure and respiratory failure Status: Acute Additional A&P Information Acute on chronic respiratory failure Hypernatremia Metabolic alkalosis HTN COPD PAD SCC of vocal cord MANISH Abnormal liver enzymes Hypokalemia Attestations Medical Necessity Statement*: remains intubated and in ICU Coding Level of Care Code Acute System Integration Engineer for Chg Fwd Diagnoses Cardiomyopathy I42.9 Cardiomyopathy type: unspecified Acute cor pulmonale I26.09 Acute renal failure N17.0 Acute renal failure type: with acute tubular necrosis Elevated troponin R77.8
[2020-07-11] MEDS: dexmedetomidine 400 MCG in sodium chloride 0.9% (100 ml) 100 ML 20.6 MCG IV (16:03)
--- NOTE | 2020-07-11 16:54 | P.PN_ITS ---
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 History was obtained from review of records and discussion with ER staff. Patient was apparently found to have oxygen saturation in mid 70s with increasing o2 requirement. Upon arrival to ER he was placed on BiPAP. Initial laboratory work up showed a WBC of 11.1, hemoglobin of 14.0, hematocrit 44.5 and platelet count of 183. Sodium 125, potassium 4.6, chloride 77, bicarb 32, BUN 136 and creatinine of 3.0. Lactic acid of 2.0. AST of 76, ALT of 397 and alkaline phosphatase of 186. Troponin T 474 - > 480.6, Delta troponin T of 6.6. ProBNP of 20,006. INR of 1.65, D-dimer of 2.84. Initial ABG on BiPAP of 7.33, PCO2 of 72.8, Po2 of 89.6, bicarb of 37.9. Patient was not tolerating Bipap due to agitation. He was subsequently intubated on placed on mechanical ventilation. Was noted to have hypotension as well after sedative medications for which he was started on Levophed. He was placed on versed and f entanyl for sedation. Imaging studies included a chest x-ray which showed cardiomegaly, pulmonary v ascularity appeared normal with no evidence of pneumothorax or infiltrates. Head CT was also ordered and pending at the time of my eval. In addition to above patient was also given Lasix 40 mg IV x 1 and Levaquin 750 mg IV x 1. Upon admission he was started on broad spectrum antibiotics for suspected R>L cellulitis however patient did have underlying dependent rubra with chronic lymphedema/wounds. Blood cultures were drawn. Due to elevated troponin the trend of which was not indicative of acs he was started on heparin gtt. Also due to elevated d-dimer with inablity to entirely rule out acute PE however given the decrease of hypoxemia with out any chest x-ray findings of pulmonary edema possiblity of acute PE was high. Nephrology was also consulted due to worsening acute renal function. He was given lasix in ER however appeared for me intravascularly dry. Was started on IVF. He continued to require levophed to mantain MAP of greater than 65. 07/06/20 Overnight patient remained intubated on mechanical vent. He was started on broad spectrum antibiotics for suspected R>L cellulitis however patient did have underlying dependent rubra with chronic lymphedema/wounds. Blood cultures were drawn. Due to elevated troponin the trend of which was not indicative of acs he was started on heparin gtt. Also due to elevated d-dimer with inablity to entirely rule out acute PE however given the decrease of hypoxemia with out any chest x-ray findings of pulmonary edema possiblity of acute PE was high. Nephrology was also consulted due to worsening acute renal function. He was given lasix in ER however was started on IV fluids after seen by Nephrology. 07/07/2020 Patient was started on IV Lasix last evening. Noted to have 6 L urine output. Was weaned off her sed and transition to Precedex. Of 2 sets remained stable. Continue to require IV Levophed. 07/08/2020 Overnight no new clinical events. Patient remained on FiO2 of 50%. Noted to have 1400 mL output overnight. In a.m. he was weaned off Precedex. Did not have any fever overnight. Remained on low-dose of Precedex. Lasix were held by nephrology. Was given a dose of diamox. CT chest PE protocol was performed whi ch did not show any evidence of acute embolism. heparin drip was discontinued. 07/09/2020 No clinical events overnight, patient was weaned off sedation and on pressure support this am, still very drowsy. Fio2 was weaned to 45%, PEEP of 5. Was arousable however with stimulation and followed commands. Would fall back asleep. 07/10/2020 No new clinical events overnight. Patient was at MMV. FiO2 of 45%. Peep of 5. Was off sedation. 07/11/2020 Patient was again started on weaning trial earlier at the time of my evaluation. Once sedation was weaned off patient had become tachycardic can became tachypneic. Eventually restarted on sedation and full vent support. Noted to have low-grade fevers overnight. Medications: Reviewed: Yes Medication Review Details: Current Medications Albuterol/Ipratropium (Ipratropium-Albuterol 3 Ml Neb) 3 ml INHALATION Q4H.RESPIRATORY PRN PRN Reason: SHORTNESS OF BREATH Last Admin: 07/10/20 07:58 Dose: 3 ml Documented by: Budesonide (Budesonide 0.5 Mg/2 Ml Neb) 0.5 mg INHALATION BID.RESPIRATORY VIMAL Last Admin: 07/10/20 07:58 Dose: 0.5 mg Documented by: Famotidine (Famotidine 20 Mg/2 Ml Inj) 20 mg IVP Q12H VIMAL Last Admin: 07/10/20 05:07 Dose: 20 mg Documented by: Heparin Sodium (Beef Lung) (Heparin 5,000 Unit/Ml Inj 1 Ml) 5,000 unit SUBCUT Q8H VIMAL Last Admin: 07/10/20 10:22 Dose: 5,000 unit Documented by: Rocuronium [place] 250 mg/ (Sodium Chloride) 250 mls @ 0 mls/hr IV .Q0M VMIAL; Protocol Norepinephrine Bitartrate 4 mg (/ Dextrose) 254 mls @ 0 mls/hr IV .Q0M VIMAL; Protocol Last Titration: 07/09/20 09:14 Dose: 0 mcg/min, 0 mls/hr Documented by: Dexmedetomidine HCl 400 mcg/ (Sodium Chloride) 104 mls @ 0 mls/hr IV .Q0M VIMAL; Protocol Last Titration: 07/10/20 02:22 Dose: 0 mcg/kg/hr, 0 mls/hr Documented by: Imipenem/Cilastatin Sodium 500 (mg/ Sodium Chloride) 100 mls @ 200 mls/hr IV Q6H VIMAL; Protocol Last Infusion: 07/10/20 11:00 Dose: Infused Documented by: Fentanyl 1,000 mcg/ Sodium (Chloride) 100 mls @ 0 mls/hr IV .Q0M VIMAL; Protocol Methylprednisolone Sodium Succinate (Methylprednisolone Sod Succ 40 Mg/Ml Inj) 40 mg IVP Q8H VIMAL Last Admin: 07/10/20 04:43 Dose: 40 mg Documented by: Ondansetron HCl (Ondansetron 2 Mg/Ml Sdv 2 Ml) 4 mg IVP Q6H PRN PRN Reason: NAUSEA AND VOMITING Vitals/I&O/Wt Last Vital Signs Temp 99.1 F 07/11/20 13:00 Pulse 115 H 07/11/20 16:02 Resp 25 H 07/11/20 16:02 BP 134/86 07/11/20 13:00 Pulse Ox 92 07/11/20 16:02 07/11/20 07/11/20 07/11/20 06:59 14:59 22:59 Intake Total 1123.829 / 1760.202 261.653 / 261.653 Output Total 650 / 2400 700 / 700 Balance 473.829 / -639.798 -438.347 / -438.347 Weight last 48 hrs Weight 116.573 kg Weight 115.836 kg Physical Exam Narrative: EXAM NARRATIVE: General : Intubated on MV HEENT - ET tube at 22 Chest - vented sounds CVS : Distant heart sounds ABD ; Non-distended Ext : Bilateral LE with chronic wound, dependent rubra L>R Neuro: unable to assess Urinary Catheter Management^: [place]: Cath Placed During This Visit: yes Reason for Continuing Indwelling Catheter: Accurate Measurement of Urinary Output in Critically Ill Patients Urinary Catheter Date of Insertion: 07/05/20 Urinary Catheter Time of Insertion: 15:50 Data : 07/11/20 04:46 07/11/20 04:46 Micro: Microbiology 07/05/20 15:00 Blood Culture - Final Blood NO GROWTH AFTER 5 DAYS 07/05/20 15:10 Blood Culture - Final Blood NO GROWTH AFTER 5 DAYS A&P Assessment and plan (1) Acute respiratory failure with hypoxia and hypercapnia: Status: Acute (2) Acute renal failure: Status: Acute Qualifiers: Acute renal failure type: with acute tubular necrosis Qualified Code(s): N17.0 - Acute kidney failure with tubular necrosis (3) Cellulitis: Status: Acute Qualifiers: Site of cellulitis: extremity Site of cellulitis of extremity: lower extremity Laterality: unspecified laterality Qualified Code(s): L03.119 - Cellulitis of unspecified part of limb (4) Chronic respiratory failure: Status: Acute (5) PAD (peripheral artery disease): Status: Acute (6) Mixed hyperlipidemia: Status: Acute (7) Lesion of true vocal cord: Status: Acute (8) Chronic bilateral low back pain: Status: Chronic Qualifiers: Sciatica presence: with sciatica Sciatica laterality: bilateral s ciatica Qualified Code(s): M54.42 - Lumbago with sciatica, left side; M54.41 - Lumbago with sciatica, right side; G89.29 - Other chronic pain (9) Lower extremity edema: Status: Chronic (10) Transaminitis: Status: Acute (11) COPD (chronic obstructive pulmonary disease): Status: Chronic Qualifiers: COPD type: unspecified COPD Qualified Code(s): J44.9 - Chronic obstructive pulmonary disease, unspecified (12) Hyponatremia: Status: Acute Acute on chronic hypoxemic hypercapnia respiratory failure - On 6 L of o2 at baseline / Trilogy at home - Intubated on MV on arrival - Fentanyl / Precedex - CTA chest - no PE - Duoneb q6r scheduled - Pulmicort 0.5 mg INH BID - Solu-medrol 40 mg IV q8hr - Wean Fio2 currently at 45%, - D/w pulmonary - Did not pass wean trial - Will re-attempt wean in am 02/Steroid dependent COPD exacerbation - Management as noted above - Low suspicion of underlying bacterial pneumonia - Empirically on abx - Primexin - Stopped - Started no Levaquin 750 mg daily - Leukocytosis likely steriod induced Acute systolic HF with cor pulmonale - Cardiomegaly noted on chest x-ray - Improving LE edema - Lasix 40 mg IV BID ordered - held by nephro on 07/07 - S/p Diamox x 4 days - ECHO - EF 45, with severe RV dysfunction - ProBMP - - Net negative balance - Replace Lytes - Hold diuresis for now Non-ST elevation IN - Troponin 474 ->480-> 426 - Cardiology consulted - ECHO noted - no RWM abnormality - Will likely require ischemic work up once stable Acute renal failure / Hypochloremic Metabolic alkalosis - Creatinine 3.0 > 2.0 - > 1.2 - 1.0 - 0.8 - CK 832 on admit - BMP in am - Nephrology on board - Diuresis on hold Hypernatremia - Na 143- > 150 - Started on Free h2o fluses - Repeat BMP in Am Hypokalemia, - Replaced - Repeat in AM - K. 3.4 today Elevated D-Dimer - PE ruled out - Discontinue Heparin gtt -heparin 5000 units Q8hr for dvt ppx Elevated LFTs - Improving - Etiology likely due to right heart failure/passive congestion - AST 76-59 - 31 - ALT 397-257 - 126 - Hepatitis panel negative - CT abd/pelvis - stable Additional medical History Vocal cord malignancy s/p Chemo-radiation Hx of Colon cancer s/p p.colectomy Obstructive sleep apnea Peripheral arterial disease Polyneuropathy Gasteroesophageal reflux disease disease DVT ppx on heparin 5000 units Q8hr Attestations Medical Necessity Statement*: will continue hospitalization for management of respiratory failure requiring mechanical ventilation Time Spent in Patient Care: Greater than 35 minutes (>than 50% of time spent in counselling and/or direct pt care on unit) . 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 [employer] Diagnoses Acute respiratory failure with hypoxia and hypercapnia J96.01; J96.02 Acute renal failure N17.0 Acute renal failure type: with acute tubular necrosis Cellulitis L03.119 Site of cellulitis: extremity Site of cellulitis of extremity: lower extremity Laterality: unspecified laterality Chronic respiratory failure J96.10 PAD (peripheral artery disease) I73.9 Mixed hyperlipidemia E78.2 Lesion of true vocal cord J38.3 Chronic bilateral low back pain M54.42; M54.41; G89.29 Sciatica presence: with sciatica Sciatica laterality: bilateral sciatica Lower extremity edema R60.0 Transaminitis R74.01 COPD (chronic obstructive pulmonary disease) J44.9 COPD type: unspecified COPD Hyponatremia E87.1
[2020-07-11 19:03] LABS: Blood Urea Nitrogen 73 mg/dL (8-23); Calcium 8.8 mg/dL (8.5-10.5); Carbon Dioxide 40 mmol/L (22-29); Chloride 104 mmol/L (98-107); Glomerular Filtration Rate 96.1 mL/min (90-130); Glucose 129 mg/dL (65-115); Osmolality Calculated 331 mOsm/kg (285-295); Sodium 149 mmol/L (136-145)
[2020-07-11 19:15] LABS: Anion Gap 8.9 (5-19); Potassium 3.9 mmol/L (3.5-5.1)
[2020-07-11] MEDS: dexmedetomidine 400 MCG in sodium chloride 0.9% (100 ml) 100 ML 8.8 MCG IV (22:08)
[2020-07-12] VITALS (63 sets, daily range): BP systolic 72–144; BP diastolic 46–100; PULSE 65–120; RESP 8–30; TEMP 37.1–38.1; O2SAT 88–97
[2020-07-12] MEDS: ipratropium-albuterol 3 mL Neb INHALATION ×5 (00:11→20:16)
[2020-07-12] MEDS: dexmedetomidine 400 MCG in sodium chloride 0.9% (100 ml) 100 ML 8.8 MCG IV (02:09)
[2020-07-12] MEDS: heparin 5,000 unit/mL INJ 1 mL 5000 UNIT SUBCUT (02:10)
[2020-07-12 05:00] LABS: ABG PCO2 57.9 mmHg (35-45); ABG PH Result 7.44 (7.35-7.45); Arterial Blood Gas Hematocrit 49.2 % (42-52); Base Excess ABG 12.1 mmol/L (-2.0-2.0); Blood Gas Sample Site Brachial, left; Blood Gas Sample Type Arterial; Blood Gas Tidal Volume 0.45; HCO3 ABG 39.2 mmol/L (22-26); Oxygen Device VENT
[2020-07-12 05:08] LABS: Alanine Aminotransferase 37 U/L (0-41); Albumin Level 3.2 g/dL (3.5-5.2); Alkaline Phosphatase 97 IU/L (40-130); Anion Gap 10.7 (5-19); Aspartate Amino Transferase 32 U/L (0-40); Blood Urea Nitrogen 68 mg/dL (8-23); Calcium 9.3 mg/dL (8.5-10.5); Carbon Dioxide 39 mmol/L (22-29); Chloride 104 mmol/L (98-107); Glomerular Filtration Rate 96.1 mL/min (90-130); Glucose 107 mg/dL (65-115); Osmolality Calculated 330 mOsm/kg (285-295); Phosphorus 3.4 mg/dL (2.5-4.5); Potassium 3.7 mmol/L (3.5-5.1); Sodium 150 mmol/L (136-145); Total Bilirubin 1.5 mg/dL (0.15-1.2); Total Protein 6.2 g/dL (6.6-8.7)
[2020-07-12] MEDS: famotidine 20 mg/2 mL INJ IVP ×2 (05:31→17:19)
[2020-07-12] MEDS: levoFLOXacin 750 mg Tablet PO (05:31)
[2020-07-12] MEDS: budesonide 0.5 mg/2 mL Neb INHALATION ×2 (07:33→20:16)
--- NOTE | 2020-07-12 08:49 | XR_ITS ---
WS: [id number] Exam: XR chest 1V portable [id number] Date/Time of Exam: 07/12/2020 8:52 AM Reason For Exam: respiratory failure Comparison 07/11/2020. Bilateral pulmonary infiltrates are noted. There has been increased infiltrate in the mid right lung since the prior study. The heart is enlarged but unchanged in size. Bibasal pleural effusions. The yehuda ngs are fully inflated. Right-sided PICC line remains in good position. ET tube ends about 5 cm above the emily in satisfactory location. An NG tube barely enters the stomach. The side-port of the tube is probably near the gastroesophageal junction. Old right rib fractures. XR/XR chest 1V portable [id number] IMPRESSION: 1. Bilateral pulmonary infiltrates. There is increasing infiltrate in the mid r ight lung zone since the prior study. 2. ET tube and right PICC line remain in satisfactory position. 3. NG tube barely entering the stomach. Is recommended that the tube be advance d another 4 to 5 cm for optimal position.
--- NOTE | 2020-07-12 08:53 | PM.PN ---
Subjective Subjective: Interval history: The patient was seen and examined this morning. Overnight, the patient was sedated with Versed in addition to fentanyl. Precedex was discontinued. The patient was on volume control mechanical ventilation, tachypneic with severe auto PEEP and air trapping. I had switched the ventilatory mode to pressure support ventilation which resulted in immediate reduction of the respiratory rate, improvement of blood pressure and requirement of oxygen. The ET tube secretion has been thick. The patient also has evidence of left lower lung zone infiltrate on the chest x-ray from yesterday. His white count was also elevated at 19.2 yesterday. Unfortunately, the patient is unable to follow any commands at this point. The serum sodium had been 150 for the past 2 days. He was supposed to receive free water flush however I believe that was not done given his respiratory status. Medications: Reviewed: Yes Vitals/I&O/Wt Last Vital Signs Temp 99.6 F 07/12/20 04:00 Pulse 105 H 07/12/20 07:35 Resp 26 H 07/12/20 07:36 BP 97/58 07/12/20 06:00 Pulse Ox 95 07/12/20 07:35 07/11/20 07/12/20 07/12/20 22:59 06:59 14:59 Intake Total 604 / 865.653 158.520 / 1024.173 172.638 / 172.638 Output Total 1000 / 1700 Balance 604 / 165.653 -841.480 / -675.827 172.638 / 172.638 Weight last 48 hrs Weight 257 lb Physical Exam Narrative: EXAM NARRATIVE: General: Patient is intubated, and sedated, not following any commands Neck: No jugular venous distention observed today while the patient is supine Respiratory: Auscultation: Reduced breath sound bilaterally, almost silent chest, no crackles or wheezing or rhonchi Cardiovascular: Regular rate and rhythm, S1-S2 present, bilateral peripheral edema much improved compared to before Abdomen: Soft, nondistended, positive bowel sound Skin: Mild redness in bilateral lower extremity Neuro: Patient is unable to follow any commands Urinary Catheter Management^: [place]: Cath Placed During This Visit: yes Reason for Continuing Indwelling Catheter: Accurate Measurement of Urinary Output in Critically Ill Patients Urinary Catheter Date of Insertion: 07/05/20 Urinary Catheter Time of Insertion: 15:50 Data : 07/11/20 04:46 07/12/20 03:19 Attestation for Other Data: I personally reviewed and interpreted the following: Other data: I have reviewed the patient laboratory microbiologic and radiologic data. A&P Assessment and plan (1) Acute respiratory failure with hypoxia and hypercapnia: Unfortunately the patient has very severe airflow obstruction and he developed significant air trapping leading to hyperinflation, elevated intrathoracic pressure causing hypotension and tachycardia. The patient was on full control mechanical ventilation and with him being tachypneic that led to escalating degree of hyperinflation. The patient seems to be doing better on pressure support ventilation. I did not need to paralyze the patient. I am hoping that his mental status will improve and will be able to extubate him in the near future. However, there is a significant chance that the patient may fail extubation and might need tracheostomy. Status: Acute (2) Left lower lobe pneumonia: There is a new left lower lobe infiltrate with elevated white cell count. I am going to obtain a new endotracheal aspirate culture. The patient is on Levaquin I am starting him on cefepime. I will obtain a nasal MRSA PCR. Status: Acute (3) Cor pulmonale: This is a 70-year-old gentleman with severe airflow obstruction, chronic hypoxic and hypercapnic respiratory failure was hospitalized with acute on chronic worsening of cor pulmonale. There is no evidence of pulmonary embolism. The patient has been adequately diuresed. Yesterday overall the patient remained mildly negative without any diuretics. The bilateral lower extremity edema has also improved significantly. Status: Acute (4) Hypernatremia: We will continue with the free water flush. Status: Acute (5) Metabolic alkalosis: Slowly improving Status: Acute (6) COPD (chronic obstructive pulmonary disease): The patient is currently on DuoNeb and Pulmicort. I am going to start him on 10 mg of prednisone daily. He has received high-dose steroid since his admission. 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
[2020-07-12] MEDS: enoxaparin 40 mg/0.4 mL Syringe SUBCUT (09:30)
[2020-07-12] MEDS: predniSONE 10 mg Tablet PO (09:30)
--- NOTE | 2020-07-12 10:04 | PM.PN ---
Subjective Subjective: Interval history: intubated, sedated, not able to obtain a ROS Medications: Reviewed: Yes Medication Review Details: Current Medications Albuterol/Ipratropium (Ipratropium-Albuterol 3 Ml Neb) 3 ml INHALATION Q4H.RESPIRATORY PRN PRN Reason: SHORTNESS OF BREATH Last Admin: 07/12/20 07:33 Dose: 3 ml Documented by: Budesonide (Budesonide 0.5 Mg/2 Ml Neb) 0.5 mg INHALATION BID.RESPIRATORY VIMAL Last Admin: 07/12/20 07:33 Dose: 0.5 mg Documented by: Enoxaparin Sodium (Enoxaparin 40 Mg/0.4 Ml Syringe) 40 mg SUBCUT Q24H VIMAL Last Admin: 07/12/20 09:30 Dose: 40 mg Documented by: Famotidine (Famotidine 20 Mg/2 Ml Inj) 20 mg IVP Q12H VIMAL Last Admin: 07/12/20 05:31 Dose: 20 mg Documented by: Norepinephrine Bitartrate 4 mg (/ Dextrose) 254 mls @ 0 mls/hr IV .Q0M VIMAL; Protocol Last Titration: 07/12/20 08:23 Dose: 6 mcg/min, 22.9 mls/hr Documented by: Dexmedetomidine HCl 400 mcg/ (Sodium Chloride) 104 mls @ 0 mls/hr IV .Q0M VIMAL; Protocol Last Titration: 07/12/20 08:23 Dose: 0.2 mcg/kg/hr, 5.9 mls/hr Documented by: Fentanyl 1,000 mcg/ Sodium (Chloride) 100 mls @ 0 mls/hr IV .Q0M VIMAL; Protocol Last Admin: 07/12/20 09:29 Dose: 100 mcg/hr, 10 mls/hr Documented by: Midazolam HCl 100 mg/ Sodium (Chloride) 100 mls @ 0 mls/hr IV .Q0M VIMAL; Protocol Last Admin: 07/12/20 04:38 Dose: 3 mg/hr, 3 mls/hr Documented by: Cefepime HCl 1,000 mg/ Sodium (Chloride) 50 mls @ 100 mls/hr IV Q12H VIMAL; Protocol Levofloxacin (Levofloxacin 750 Mg Tablet) 750 mg PO DAILY@0600 VIMAL; Protocol Last Admin: 07/12/20 05:31 Dose: 750 mg Documented by: Prednisone (Prednisone 10 Mg Tablet) 10 mg PO DAILY [facility] Last Admin: 07/12/20 09:30 Dose: 10 mg Documented by: Vitals/I&O/Wt Last Vital Signs Temp 99.6 F 07/12/20 04:00 Pulse 110 H 07/12/20 09:30 Resp 10 L 07/12/20 09:30 BP 106/62 07/12/20 09:30 Pulse Ox 91 07/12/20 09:30 07/11/20 07/12/20 07/12/20 22:59 06:59 14:59 Intake Total 604 / 865.653 158.520 / 1024.173 430.888 / 430.888 Output Total 1000 / 1700 Balance 604 / 165.653 -841.480 / -675.827 430.888 / 430.888 Weight last 48 hrs Weight 116.573 kg Physical Exam Narrative: EXAM NARRATIVE: intubated cpap/ps 10/ peep 5, fio2 45% heent- ncat, eomi anicteric neck supple lungs ronchi, poor air movement heart reg abd soft, nt, nd, + bs ext no edema neuro- sedtaed, responsive skin no rashes Urinary Catheter Management^: [place]: Cath Placed During This Visit: yes Reason for Continuing Indwelling Catheter: Accurate Measurement of Urinary Output in Critically Ill Patients Urinary Catheter Date of Insertion: 07/05/20 Urinary Catheter Time of Insertion: 15:50 Data : 07/11/20 04:46 07/12/20 03:19 A&P Additional A&P Information 1. Acute kidney injury renal function improved 2. hypernatremia- effective intravascular volume depletion- please inc water repletion- on free water boluses, may benefit from 1/2 ns or D5W 3.hypercapneic resp acidosis per pulm metabolic compensation and likely met alkalosis from volume depletion 4. Left lower lobe pna 5. thrombocytopenia -likely from meds vs infection. 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
[2020-07-12] MEDS: cefepime 1,000 MG in sodium chloride 0.9% (plus) 50 ML 100 MG IV ×2 (10:22→20:34)
[2020-07-12] MEDS: dexmedetomidine 400 MCG in sodium chloride 0.9% (100 ml) 100 ML 17.7 MCG IV (11:15)
--- NOTE | 2020-07-12 12:34 | P.PN_ITS ---
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 History was obtained from review of records and discussion with ER staff. Patient was apparently found to have oxygen saturation in mid 70s with increasing o2 requirement. Upon arrival to ER he was placed on BiPAP. Initial laboratory work up showed a WBC of 11.1, hemoglobin of 14.0, hematocrit 44.5 and platelet count of 183. Sodium 125, potassium 4.6, chloride 77, bicarb 32, BUN 136 and creatinine of 3.0. Lactic acid of 2.0. AST of 76, ALT of 397 and alkaline phosphatase of 186. Troponin T 474 - > 480.6, Delta troponin T of 6.6. ProBNP of 20,006. INR of 1.65, D-dimer of 2.84. Initial ABG on BiPAP of 7.33, PCO2 of 72.8, Po2 of 89.6, bicarb of 37.9. Patient was not tolerating Bipap due to agitation. He was subsequently intubated on placed on mechanical ventilation. Was noted to have hypotension as well after sedative medications for which he was started on Levophed. He was placed on versed and f entanyl for sedation. Imaging studies included a chest x-ray which showed cardiomegaly, pulmonary v ascularity appeared normal with no evidence of pneumothorax or infiltrates. Head CT was also ordered and pending at the time of my eval. In addition to above patient was also given Lasix 40 mg IV x 1 and Levaquin 750 mg IV x 1. Upon admission he was started on broad spectrum antibiotics for suspected R>L cellulitis however patient did have underlying dependent rubra with chronic lymphedema/wounds. Blood cultures were drawn. Due to elevated troponin the trend of which was not indicative of acs he was started on heparin gtt. Also due to elevated d-dimer with inablity to entirely rule out acute PE however given the decrease of hypoxemia with out any chest x-ray findings of pulmonary edema possiblity of acute PE was high. Nephrology was also consulted due to worsening acute renal function. He was given lasix in ER however appeared for me intravascularly dry. Was started on IVF. He continued to require levophed to mantain MAP of greater than 65. 07/06/20 Overnight patient remained intubated on mechanical vent. He was started on broad spectrum antibiotics for suspected R>L cellulitis however patient did have underlying dependent rubra with chronic lymphedema/wounds. Blood cultures were drawn. Due to elevated troponin the trend of which was not indicative of acs he was started on heparin gtt. Also due to elevated d-dimer with inablity to entirely rule out acute PE however given the decrease of hypoxemia with out any chest x-ray findings of pulmonary edema possiblity of acute PE was high. Nephrology was also consulted due to worsening acute renal function. He was given lasix in ER however was started on IV fluids after seen by Nephrology. 07/07/2020 Patient was started on IV Lasix last evening. Noted to have 6 L urine output. Was weaned off her sed and transition to Precedex. Of 2 sets remained stable. Continue to require IV Levophed. 07/08/2020 Overnight no new clinical events. Patient remained on FiO2 of 50%. Noted to have 1400 mL output overnight. In a.m. he was weaned off Precedex. Did not have any fever overnight. Remained on low-dose of Precedex. Lasix were held by nephrology. Was given a dose of diamox. CT chest PE protocol was performed whi ch did not show any evidence of acute embolism. heparin drip was discontinued. 07/09/2020 No clinical events overnight, patient was weaned off sedation and on pressure support this am, still very drowsy. Fio2 was weaned to 45%, PEEP of 5. Was arousable however with stimulation and followed commands. Would fall back asleep. 07/10/2020 No new clinical events overnight. Patient was at MMV. FiO2 of 45%. Peep of 5. Was off sedation. 07/11/2020 Patient was again started on weaning trial earlier at the time of my evaluation. Once sedation was weaned off patient had become tachycardic can became tachypneic. Eventually restarted on sedation and full vent support. Noted to have low-grade fevers overnight. 07/12/20 Patient became agitated, tachypneic on fentanyl and Precedex. He was transitioned to Versed however this morning this was changed back to Precedex. He was also given a one time dose of seth. Patient was arousable and minimally follows commands. Medications: Reviewed: Yes Medication Review Details: Current Medications Albuterol/Ipratropium (Ipratropium-Albuterol 3 Ml Neb) 3 ml INHALATION Q4H.RESPIRATORY PRN PRN Reason: SHORTNESS OF BREATH Last Admin: 07/10/20 07:58 Dose: 3 ml Documented by: Budesonide (Budesonide 0.5 Mg/2 Ml Neb) 0.5 mg INHALATION BID.RESPIRATORY VIMAL Last Admin: 07/10/20 07:58 Dose: 0.5 mg Documented by: Famotidine (Famotidine 20 Mg/2 Ml Inj) 20 mg IVP Q12H VIMAL Last Admin: 07/10/20 05:07 Dose: 20 mg Documented by: Heparin Sodium (Beef Lung) (Heparin 5,000 Unit/Ml Inj 1 Ml) 5,000 unit SUBCUT Q8H VIMAL Last Admin: 07/10/20 10:22 Dose: 5,000 unit Documented by: Rocuronium Spruce 250 mg/ (Sodium Chloride) 250 mls @ 0 mls/hr IV .Q0M VIMAL; Protocol Norepinephrine Bitartrate 4 mg (/ Dextrose) 254 mls @ 0 mls/hr IV .Q0M VIMAL; Protocol Last Titration: 07/09/20 09:14 Dose: 0 mcg/min, 0 mls/hr Documented by: Dexmedetomidine HCl 400 mcg/ (Sodium Chloride) 104 mls @ 0 mls/hr IV .Q0M VIMAL; Protocol Last Titration: 07/10/20 02:22 Dose: 0 mcg/kg/hr, 0 mls/hr Documented by: Imipenem/Cilastatin Sodium 500 (mg/ Sodium Chloride) 100 mls @ 200 mls/hr IV Q6H VIMAL; Protocol Last Infusion: 07/10/20 11:00 Dose: Infused Documented by: Fentanyl 1,000 mcg/ Sodium (Chloride) 100 mls @ 0 mls/hr IV .Q0M VIMAL; Protocol Methylprednisolone Sodium Succinate (Methylprednisolone Sod Succ 40 Mg/Ml Inj) 40 mg IVP Q8H VIMAL Last Admin: 07/10/20 04:43 Dose: 40 mg Documented by: Ondansetron HCl (Ondansetron 2 Mg/Ml Sdv 2 Ml) 4 mg IVP Q6H PRN PRN Reason: NAUSEA AND VOMITING Vitals/I&O/Wt Last Vital Signs Temp 99.6 F 07/12/20 04:00 Pulse 107 H 07/12/20 11:30 Resp 10 L 07/12/20 11:30 BP 113/66 07/12/20 11:30 Pulse Ox 89 L 07/12/20 11:30 07/11/20 07/12/20 07/12/20 22:59 06:59 14:59 Intake Total 604 / 865.653 158.520 / 1024.173 787.106 / 787.106 Output Total 1000 / 1700 1450 / 1450 Balance 604 / 165.653 -841.480 / -675.827 -662.894 / -662.894 Weight last 48 hrs Weight 116.573 kg Physical Exam Narrative: EXAM NARRATIVE: General : Intubated on MV HEENT - ET tube at 22 Chest - vented sounds CVS : Distant heart sounds ABD ; Non-distended Ext : Bilateral LE with chronic wound, dependent rubra L>R Neuro: unable to assess Urinary Catheter Management^: [place]: Cath Placed During This Visit: yes Reason for Continuing Indwelling Catheter: Accurate Measurement of Urinary Output in Critically Ill Patients Urinary Catheter Date of Insertion: 07/05/20 Urinary Catheter Time of Insertion: 15:50 Data : 07/11/20 04:46 07/12/20 03:19 A&P Assessment and plan (1) Acute respiratory failure with hypoxia and hypercapnia: Status: Acute (2) Acute renal failure: Status: Acute Qualifiers: Acute renal failure type: with acute tubular necrosis Qualified Code(s): N17.0 - Acute kidney failure with tubular necrosis (3) Cellulitis: Status: Acute Qualifiers: Site of cellulitis: extremity Site of cellulitis of extremity: lower e xtremity Laterality: unspecified laterality Qualified Code(s): L03.119 - Cellulitis of unspecified part of limb (4) Chronic respiratory failure: Status: Acute (5) PAD (peripheral artery disease): Status: Acute (6) Mixed hyperlipidemia: Status: Acute (7) Lesion of true vocal cord: Status: Acute (8) Chronic bilateral low back pain: Status: Chronic Qualifiers: Sciatica presence: with sciatica Sciatica laterality: bilateral sciatica Qualified Code(s): M54.42 - Lumbago with sciatica, left side; M54.41 - Lumbago with sciatica, right side; G89.29 - Other chronic pain (9) Lower extremity edema: Status: Chronic (10) Transaminitis: Status: Acute (11) COPD (chronic obstructive pulmonary disease): Status: Chronic Qualifiers: COPD type: unspecified COPD Qualified Code(s): J44.9 - Chronic obstructive pulmonary disease, unspecified (12) Hyponatremia: Status: Acute Acute on chronic hypoxemic hypercapnia respiratory failure - On 6 L of o2 at baseline / Trilogy at home - Intubated on MV on arrival - Fentanyl / Precedex - D/C versed - Was given seth as well - CTA chest - no PE - Duoneb q6r scheduled - Pulmicort 0.5 mg INH BID - Solu-medrol 40 mg IV q8hr - changed to prednisone - Wean Fio2 currently at 70% on CPAP settings - Chest x-ray- Bilateral pulmonary infiltrates. There is increasing infiltrate in the mid right lung zone since the prior study. - Pulmonary on board and assisting with managemnt 02/Steroid dependent COPD exacerbation - Management as noted above - Low suspicion of underlying bacterial pneumonia - Empirically on abx - Primexin - Stopped - Started on Levaquin 750 mg daily - Cefepime added to regimen Acute systolic HF with cor pulmonale - Cardiomegaly noted on chest x-ray - Improving LE edema - Lasix 40 mg IV BID ordered - held by nephro on 07/07 - S/p Diamox x 4 days - ECHO - EF 45, with severe RV dysfunction - ProBMP - - Net negative balance -900cc - Replace Lytes Non-ST elevation NM - Troponin 474 ->480-> 426 - Cardiology consulted - ECHO noted - no RWM abnormality - Will likely require ischemic work up once stable Acute renal failure / Hypochloremic Metabolic alkalosis - Creatinine 3.0 > 2.0 - > 1.2 - 1.0 - 0.8 - CK 832 on admit - BMP in am - Nephrology on board - Diuresis on hold Hypernatremia - Na 143- > 150 - Started on Free h2o flushes - Repeat BMP in Am Hypokalemia, - Replaced - Repeat in AM - K. 3.4 - > 3.7 Elevated D-Dimer - PE ruled out - Discontinue Heparin gtt -heparin 5000 units Q8hr for dvt ppx Elevated LFTs - Improving - Etiology likely due to right heart failure/passive congestion - AST 76-59 - 31 - ALT 397-257 - 126 - Hepatitis panel negative - CT abd/pelvis - stable Additional medical History Vocal cord malignancy s/p Chemo-radiation Hx of Colon cancer s/p p.colectomy Obstructive sleep apnea Peripheral arterial disease Polyneuropathy Gasteroesophageal reflux disease disease DVT ppx on heparin 5000 units Q8hr - held Attestations Medical Necessity Statement*: Require further hospitalization for management of respiratory failure Coding Level of Care Code 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01 COPD (chronic obstructive pulmonary disease) J44.9 COPD type: unspecified COPD Hyponatremia E87.1
--- NOTE | 2020-07-12 13:46 | PC.NURSE ---
OG Tube advanced 5cm per CXR recommendation.
[2020-07-12] MEDS: dexmedetomidine 400 MCG in sodium chloride 0.9% (100 ml) 100 ML 23.5 MCG IV ×2 (18:18→22:24)
[2020-07-12 18:28] LABS: Basophils # 0.1 10^3/uL (0.0-0.1); Basophils % 0.3 %; Eosinophils # 0.1 10^3/uL (0.0-0.8); Eosinophils % 0.1 %; Hematocrit 53.2 % (42.0-52.0); Hemoglobin 15.3 g/dL (11.7-16.6); Lymphocytes # 0.7 10^3/uL (0.8-4.8); Lymphocytes % 1.7 %; Mean Corpuscular HGB Conc 28.8 g/dL (30.0-36.0); Mean Corpuscular Hemoglobin 27.9 pg (28.0-34.0); Mean Corpuscular Volume 96.9 fL (80-94); Mean Platelet Volume 11.5 fL (7.4-10.4); Monocytes # 2.3 10^3/uL (0.2-0.9); Monocytes % 5.8 %; Neutrophils # 36.34 10^3/uL (1.8-7.7); Neutrophils % 91.3 %; Nucleated Red Blood Cells % 0 %; Platelet Count 72 10^3/cmm (130-400); Red Blood Count 5.49 10^6/uL (4.1-5.3); Red Cell Distribution Width 14.8 % (12.1-15.1)
[2020-07-12 18:37] LABS: White Blood Count 39.8 10^3/uL (4.0-10.0)
[2020-07-12 18:41] LABS: Anion Gap 10.5 (5-19); Blood Urea Nitrogen 52 mg/dL (8-23); Calcium 8.8 mg/dL (8.5-10.5); Carbon Dioxide 36 mmol/L (22-29); Chloride 107 mmol/L (98-107); Glomerular Filtration Rate 112.1 mL/min (90-130); Glucose 127 mg/dL (65-115); Osmolality Calculated 326 mOsm/kg (285-295); Potassium 3.5 mmol/L (3.5-5.1); Sodium 150 mmol/L (136-145)
--- NOTE | 2020-07-12 19:16 | P.PN_ITS ---
Subjective Subjective: Interval history: Patient could not be extubated today. FiO2 requirement increased Medications: Reviewed: Yes Medication Review Details: Current Medications Albuterol/Ipratropium (Ipratropium-Albuterol 3 Ml Neb) 3 ml INHALATION Q4H.RESPIRATORY PRN PRN Reason: SHORTNESS OF BREATH Last Admin: 07/12/20 15:09 Dose: 3 ml Documented by: Budesonide (Budesonide 0.5 Mg/2 Ml Neb) 0.5 mg INHALATION BID.RESPIRATORY VIMAL Last Admin: 07/12/20 07:33 Dose: 0.5 mg Documented by: Enoxaparin Sodium (Enoxaparin 40 Mg/0.4 Ml Syringe) 40 mg SUBCUT Q24H VIMAL Last Admin: 07/12/20 09:30 Dose: 40 mg Documented by: Famotidine (Famotidine 20 Mg/2 Ml Inj) 20 mg IVP Q12H VIMAL Last Admin: 07/12/20 17:19 Dose: 20 mg Documented by: Norepinephrine Bitartrate 4 mg (/ Dextrose) 254 mls @ 0 mls/hr IV .Q0M VIMAL; Protocol Last Titration: 07/12/20 18:08 Dose: 4 mcg/min, 15.2 mls/hr Documented by: Dexmedetomidine HCl 400 mcg/ (Sodium Chloride) 104 mls @ 0 mls/hr IV .Q0M VIMAL; Protocol Last Admin: 07/12/20 18:18 Dose: 0.8 mcg/kg/hr, 23.5 mls/hr Documented by: Fentanyl 1,000 mcg/ Sodium (Chloride) 100 mls @ 0 mls/hr IV .Q0M VIMAL; Protocol Last Admin: 07/12/20 18:16 Dose: 75 mcg/hr, 7.5 mls/hr Documented by: Midazolam HCl 100 mg/ Sodium (Chloride) 100 mls @ 0 mls/hr IV .Q0M VIMAL; Protocol Last Titration: 07/12/20 15:52 Dose: 0 mg/hr, 0 mls/hr Documented by: Cefepime HCl 1,000 mg/ Sodium (Chloride) 50 mls @ 100 mls/hr IV Q12H VIMAL; Protocol Last Infusion: 07/12/20 13:00 Dose: Infused Documented by: Levofloxacin (Levofloxacin 750 Mg Tablet) 750 mg PO DAILY@0600 VIMAL; Protocol Last Admin: 07/12/20 05:31 Dose: 750 mg Documented by: Prednisone (Prednisone 10 Mg Tablet) 10 mg PO DAILY VIMAL Last Admin: 07/12/20 09:30 Dose: 10 mg Documented by: Vitals/I&O/Wt Last Vital Signs Temp 98.7 F 07/12/20 13:01 Pulse 82 07/12/20 17:00 Resp 12 07/12/20 17:00 BP 128/60 07/12/20 17:00 Pulse Ox 94 07/12/20 17:00 07/12/20 07/12/20 07/12/20 06:59 14:59 22:59 Intake Total 158.520 / 1024.173 986.758 / 986.758 484.969 / 1471.727 Output Total 1000 / 1700 1450 / 1450 650 / 2100 Balance -841.480 / -675.827 -463.242 / -463.242 -165.031 / -628.273 Weight last 48 hrs Weight 257 lb Physical Exam Narrative: EXAM NARRATIVE: GENERAL: Patient is intubated on vent. NECK: No jugular vein distension appreciated. HEENT: No cyanosis. No icterus. No pallor. HEART: Regular S1 and S2. No murmur, rub or gallop. LUNGS:coarse bilateral breath sounds ABDOMEN: Soft, nondistended. CENTRAL NERVOUS SYSTEM: sedated EXTREMITIES: Lower extremities 1+ edema bilaterally. Bilateral leg chronic discoloration Urinary Catheter Management^: [place]: Cath Placed During This Visit: yes Reason for Continuing Indwelling Catheter: Accurate Measurement of Urinary Output in Critically Ill Patients Urinary Catheter Date of Insertion: 07/05/20 Urinary Catheter Time of Insertion: 15:50 Data : 07/12/20 18:02 07/12/20 18:02 Micro: Microbiology 07/12/20 08:40 Gram Stain - Final Sputum - Endotracheal Tube Aspirate A&P Assessment and plan (1) Cardiomyopathy: newly diagnosed drop in LV function. -He will require further w/u once stable. Status: Acute Qualifiers: Cardiomyopathy type: unspecified Qualified Code(s): I42.9 - Cardiomyopathy, unspecified (2) Acute cor pulmonale: Most likely secondary to COPD; CT scan negative for PE Status: Acute (3) Acute renal failure: Improved. 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 Fwd Diagnoses Cardiomyopathy I42.9 Cardiomyopathy type: unspecified Acute cor pulmonale I26.09 Acute renal failure N17.0 Acute renal failure type: with acute tubular necrosis Elevated troponin R77.8
--- NOTE | 2020-07-12 19:35 | PC.NURSE ---
Shift summary Patient having gastric content coming out (onto bed) of OG tube when coughing. Physician notified, ordered to place OG to suction (until resolved, then clamped), 450ml returned. Also noted possible gastric content to be in ETT. Sputum C/S and Ceftinir ordered and given. Ordered to increase free water flushes to 250ml Q4H and Pulmicare bolus 250ml Q6H. Patient FIO2 75% to 45%, RR from 30s to 8-12 (physician order),weened off of versed. Fentanyl gtt had to be titrated up to 125 mcg/hr but down to 75 mcg/hr. Precedex up to 1.0 but down to 0.8. Levo down to 4. Patient turned Q2H. Dr. Kam ordered to use Precedex (1.5 max), titrate down fentanyl (200 mcg/hr max), and to use versed as last resort. VSS, irregular rhythm, did have brief episode for bradycardia (50s) for 3-4 minutes. updated on patient, possible extubation 07/13/20. Primary night nurse DAVID Tay, notified of plan/orders.
--- NOTE | 2020-07-12 21:12 | PC.NURSE ---
Phone call from Dr. Negin Hui stated he would come in clinical consultant tomorrow and check pt. stated pt should be weaned from fentanyl (attempt to reach 25 mcg/hr or less). Precedex may go to 1.5. Morphine 2 mg Q 2 hr was ordered for pain as fentanyl is titrated down. requested the RR not get too high so that extubation could be possible.
[2020-07-12] MEDS: morphine 4 mg/mL SDV 1 mL 2 MG IVP (22:16)
[2020-07-13] VITALS (60 sets, daily range): BP systolic 77–152; BP diastolic 47–87; PULSE 67–106; RESP 10–34; TEMP 36.1–40; O2SAT 86–97; BMI 32.1
[2020-07-13] MEDS: morphine 4 mg/mL SDV 1 mL 2 MG IVP ×2 (00:40→02:39)
[2020-07-13] MEDS: acetaminophen 650 mg Supp PR ×3 (01:18→09:19)
[2020-07-13] MEDS: dexmedetomidine 400 MCG in sodium chloride 0.9% (100 ml) 100 ML 29.4 MCG IV (02:42)
[2020-07-13 03:33] LABS: Alanine Aminotransferase 25 U/L (0-41); Albumin Level 2.4 g/dL (3.5-5.2); Alkaline Phosphatase 78 IU/L (40-130); Blood Urea Nitrogen 49 mg/dL (8-23); Calcium 8.5 mg/dL (8.5-10.5); Carbon Dioxide 31 mmol/L (22-29); Chloride 109 mmol/L (98-107); Globulin 2.8 g/dL (1.3-4.6); Glomerular Filtration Rate 112.1 mL/min (90-130); Glucose 108 mg/dL (65-115); Magnesium 1.7 mg/dL (1.7-2.3); Osmolality Calculated 324 mOsm/kg (285-295); Phosphorus 2.2 mg/dL (2.5-4.5); Sodium 150 mmol/L (136-145); Total Bilirubin 2.2 mg/dL (0.15-1.2); Total Protein 5.2 g/dL (6.6-8.7)
[2020-07-13 03:38] LABS: Anion Gap 14.1 (5-19); Aspartate Amino Transferase 26 U/L (0-40); Potassium 4.1 mmol/L (3.5-5.1)
[2020-07-13] MEDS: vancomycin 1,500 MG/300 ML PIGGYBACK 200 MG IV (03:40)
--- NOTE | 2020-07-13 03:57 | PC.NURSE ---
DR ANDREW PHONE CALL Ordered that fentanyl be turned off for now. Precedex should be slowly weaned. RT will do an ABG. Pt should be checked for responsiveness. will come assess pt and see if extubation will be possible this morning.
[2020-07-13 04:07] LABS: ABG PCO2 38.6 mmHg (35-45); Arterial Blood Gas Hematocrit 50.4 % (42-52); Blood Gas Allen Test Pos; Blood Gas Operator Identificat JB; Blood Gas Sample Site Radial, right; Blood Gas Sample Type Arterial; HCO3 ABG 36.1 mmol/L (22-26); Oxygen Device VENT
[2020-07-13 04:08] LABS: ABG PH Result 7.58 (7.35-7.45)
--- NOTE | 2020-07-13 04:43 | XR_ITS ---
WS: [id number] Exam: XR chest 1V portable [id number] Date/Time of Exam: 07/13/2020 5:04 AM Reason For Exam: respiratory failure Comparison 07/12/2020. Infiltrates again noted in the left lower lung zone in the mid right lung. Left pulmonary infiltrates have improved but no other significant change. Heart size is stable and within normal limits. Small left pleural effusion. The mediastinum is not widened. Endotracheal tube remains in satisfactory posi tion ending about 5 cm above the emily. An enteric tube extends below the diaphragm the tip is not v isible. Right-sided PICC line remains in satisfactory position. XR/XR chest 1V portable [id number] IMPRESSION: 1. Bilateral pulmonary infiltrates. Infiltrates in the left lower lung zones sh ow some improvement. No other change in the overall appearance the chest.
[2020-07-13] MEDS: famotidine 20 mg/2 mL INJ IVP ×2 (05:05→18:31)
[2020-07-13] MEDS: levoFLOXacin 750 mg Tablet PO (05:05)
--- NOTE | 2020-07-13 05:21 | P.PN_ITS ---
Subjective Subjective: Interval history: The patient was seen and examined this morning. Overnight the patient developed high-grade fever up to 104. He has also developed rash in bilateral upper extremity with some degree of swelling. His white count has jumped to 39,000 this morning with reduction in platelet down to 72,000. Interestingly, his blood gas this morning reveals improved oxygenation with development of respiratory alkalosis. Overnight the patient was getting tidal volumes more than a liter intermittently. Chest x-ray this morning reveals bilateral infiltrates predominantly in the left lower lobe. There is some infiltrate in the right lung as well. 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 He has a documented allergy to penicillin however I am unsure exactly what kind of allergy he has. The patient did receive cefepime yesterday for the first time and I wonder whether the rash and the fever is likely secondary to a drug reaction as well. Hemodynamically, the patient has remained more or less stable. He is on a small dose of Levophed. The patient continues to be hypernatremic with a sodium of 150. He is been getting free water flush however he might not have gotten all the doses as there was concern for the NG tube being in the esophagus and possibility of aspiration. Overnight, we are able to come down on fentanyl which was titrated off completely. Currently the patient is only on Precedex and seems to be doing well. He is still on pressure support ventilation with good tidal volume, oxygenation. Respiratory rate is variable between the low teens to 20s. Medications: Reviewed: Yes Vitals/I&O/Wt Last Vital Signs Temp 104 F H 07/13/20 04:56 Pulse 95 07/13/20 04:00 Resp 18 07/13/20 05:01 BP 132/87 07/13/20 04:00 Pulse Ox 96 07/13/20 04:00 07/12/20 07/12/20 07/13/20 14:59 22:59 06:59 Intake Total 986.758 / 986.758 727.039 / 1713.797 133.59 / 1847.387 Output Total 1450 / 1450 650 / 2100 37966 / 58732 Balance -463.242 / -463.242 77.039 / -386.203 -21523.41 / -64179.613 Weight last 48 hrs Weight 257 lb Physical Exam Narrative: EXAM NARRATIVE: General: Patient is intubated, and sedated with Precedex, not following any commands Neck: No jugular venous distention observed this morning Respiratory: Auscultation: Reduced breath sound bilaterally, almost silent chest, no crackles or wheezing or rhonchi Cardiovascular: Regular rate and rhythm, S1-S2 present, bilateral male peripheral edema Abdomen: Soft, nondistended, positive bowel sound Skin: Mild redness in bilateral lower extremity as well as warmth and swelling and redness in bilateral upper extremities Neuro: Patient is unable to follow any commands Urinary Catheter Management^: [place]: Cath Placed During This Visit: yes Reason for Continuing Indwelling Catheter: Accurate Measurement of Urinary Output in Critically Ill Patients Urinary Catheter Date of Insertion: 07/05/20 Urinary Catheter Time of Insertion: 15:50 Data : 07/12/20 18:02 07/13/20 02:30 Micro: Microbiology 07/13/20 02:30 Blood Culture - Preliminary Blood SPECIMEN COLLECTED 07/13/20 02:35 Blood Culture - Preliminary Blood SPECIMEN COLLECTED 07/12/20 08:40 Gram Stain - Final Sputum - Endotracheal Tube Aspirate Attestation for Other Data: I personally reviewed and interpreted the following: Other data: I have reviewed the patient's laboratory, microbiologic and radi ologic data. The chest x-ray from this morning reveals bilateral infiltrate. There is consolidation of the left lower lung zone and alveolar opacity in the right lung. However there is no dense consolidation. His white count has jumped to 39.8 with reduction in platelet which could certainly be in the setting of sepsis. The patient continues to be hyponatremic however the BUN is coming down. The Gram stain culture of the endotracheal aspirate from yesterday did not reveal any [place] organism. Blood cultures had been negative in the past. New cultures were drawn this morning. A&P Assessment and plan (1) Acute respiratory failure with hypoxia and hypercapnia: This morning, it appears that on pressure support ventilation the patient is achieving good tidal volume with a lower respiratory rate. The arterial blood gas this morning revealed respiratory alkalosis with improved oxygenation. Unfortunately, the patient has developed 104 fever likely secondary to pneumonia which is also affecting his mental status as well as making him tachypneic. At this point, patient is only on dexmedetomidine. I will continue to monitor him and if he has a mental status we might still be able to extubate him. Status: Acute (2) Left lower lobe pneumonia: The patient is now broadly covered with linezolid which will be started this evening. He received a dose of vancomycin this morning. He did receive cefepime yesterday. I wonder whether he had an allergic reaction leading to the rash in bilateral upper extremity. I have switched that to imipenem. We will continue with the levofloxacin to complete a 7-day course. Status: Acute (3) Cor pulmonale: The cor pulmonale is well controlled at this point. There is minimal bilateral lower extremity swelling. The patient has not received any diuretics yesterday. He might need gentle diuresis later today. Status: Acute (4) Hypernatremia: The patient has a 4.2 L free water deficit. I am going to start him on D5 drip at 50 cc an hour for 2 L as well as increase the free water flush to 100 cc every 6 hours. I will obtain a BMP at 4 PM today. Status: Acute (5) Metabolic alkalosis: The metabolic alkalosis has improved with withholding loop diuretics. Status: Acute (6) COPD (chronic obstructive pulmonary disease): The patient is currently on DuoNeb and Pulmicort. Given the possibility of a drug reaction, for now I will continue with Solu- Medrol 40 mg IV daily. Overall, this is a 70-year-old gentleman with very severe airflow obstruction from COPD, cor pulmonale has now developed a focal pneumonia with septic shock. The patient is currently on low-dose Levophed, broadly covered with antibiotic. He also has thrombocytopenia which could be secondary to the infection however the time course of thrombocytopenia does follow the time course of heparin- induced thrombocytopenia. I am going to discontinue all heparin products and start him on Arixtra. He also has hyponatremia which will be corrected with IV dextrose and free water flush. He will likely require initiation of diuretic regimen later today. 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
[2020-07-13] MEDS: dextrose 5% 1,000 ML 50 ML IV (05:32)
--- NOTE | 2020-07-13 05:46 | PC.NURSE ---
Addendum entered by Isis Savage RN 07/13/20 05:48: Witnessed waste of 60ml versed with Lillie Haile RN Original Note: VERSED WASTE 60 mL IV versed wasted with DAVID Marinelli
[2020-07-13] MEDS: dexmedetomidine 400 MCG in sodium chloride 0.9% (100 ml) 100 ML 17.7 MCG IV (06:01)
--- NOTE | 2020-07-13 06:59 | PC.NURSE ---
Addendum entered by Isis Savage RN 07/13/20 07:09: to extubate patient this am. Witnessed waste of 100 ml fentanyl gtt with Lillie Haile RN. Original Note: FENTANYL WASTE Wasted 100 mL fentanyl drip with DAVID Marinelli
[2020-07-13] MEDS: ipratropium-albuterol 3 mL Neb INHALATION ×3 (07:26→20:57)
[2020-07-13] MEDS: budesonide 0.5 mg/2 mL Neb INHALATION ×2 (07:26→20:57)
--- NOTE | 2020-07-13 07:27 | PC.NURSE ---
Patient has been extubated to bipap. Precedex stopped. Map is now 108 so nurse has started decreasing levophed. Patient is currently resting comfortably.
[2020-07-13 08:50] LABS: ABG PCO2 44.8 mmHg (35-45); ABG PH Result 7.52 (7.35-7.45); Arterial Blood Gas Hematocrit 47.8 % (42-52); Base Excess ABG 12.4 mmol/L (-2.0-2.0); Blood Gas Allen Test Pos; Blood Gas Operator Identificat CAK; Blood Gas Sample Site Radial, left; Blood Gas Sample Type Arterial; HCO3 ABG 36.9 mmol/L (22-26); Oxygen Device BIPAP; PO2 ABG 62.4 mmHg (80.0-100.0)
--- NOTE | 2020-07-13 09:00 | PM.PN ---
Subjective Subjective: Interval history: No on nasal cannula - states he is feeling better Medications: Reviewed: Yes Vitals/I&O/Wt Last Vital Signs Temp 101.7 F H 07/13/20 08:00 Pulse 100 07/13/20 08:00 Resp 20 H 07/13/20 08:00 BP 97/56 07/13/20 08:00 Pulse Ox 95 07/13/20 08:00 07/12/20 07/13/20 07/13/20 22:59 06:59 14:59 Intake Total 727.039 / 1713.797 647.145 / 2360.942 129.935 / 129.935 Output Total 650 / 2100 900 / 3000 400 / 400 Balance 77.039 / -386.203 -252.855 / -639.058 -270.065 / -270.065 Weight last 48 hrs Weight 116.573 kg Physical Exam Const: COMMON NORMALS: no acute distress GENERAL APPEARANCE: cooperative Extremity: GENERAL: Yes edema (trace) Urinary Catheter Management^: [place]: Cath Placed During This Visit: yes Reason for Continuing Indwelling Catheter: Accurate Measurement of Urinary Output in Critically Ill Patients Urinary Catheter Date of Insertion: 07/05/20 Urinary Catheter Time of Insertion: 15:50 Data : 07/12/20 18:02 07/13/20 02:30 Micro: Microbiology 07/13/20 02:30 Blood Culture - Preliminary Blood SPECIMEN COLLECTED 07/13/20 02:35 Blood Culture - Preliminary Blood SPECIMEN COLLECTED 07/12/20 08:40 Gram Stain - Final Sputum - Endotracheal Tube Aspirate A&P Additional A&P Information 1. Acute kidney injury, good urine output, serum creatinine baseline 2. Hypernatremia, increase IVF D5W, increase oral water intake 3. Hypophosphatemia, replace orally 4. 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
[2020-07-13] MEDS: fondaparinux 2.5 mg/0.5 mL Syringe SUBCUT (10:01)
--- NOTE | 2020-07-13 11:04 | PC.NURSE ---
Rolando removed BIpap mask to perform oral care. oral swabs to the mouth and lips. Patient maintained oxygen saturation of 90-91%. Nurse alerted DR greene and received orders to discontinue bi pap and put on 4 L NC.
--- NOTE | 2020-07-13 15:29 | PM.PN ---
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 History was obtained from review of records and discussion with ER staff. Patient was apparently found to have oxygen saturation in mid 70s with increasing o2 requirement. Upon arrival to ER he was placed on BiPAP. Initial laboratory work up showed a WBC of 11.1, hemoglobin of 14.0, hematocrit 44.5 and platelet count of 183. Sodium 125, potassium 4.6, chloride 77, bicarb 32, BUN 136 and creatinine of 3.0. Lactic acid of 2.0. AST of 76, ALT of 397 and alkaline phosphatase of 186. Troponin T 474 - > 480.6, Delta troponin T of 6.6. ProBNP of 20,006. INR of 1.65, D-dimer of 2.84. Initial ABG on BiPAP of 7.33, PCO2 of 72.8, Po2 of 89.6, bicarb of 37.9. Patient was not tolerating Bipap due to agitation. He was subsequently intubated on placed on mechanical ventilation. Was noted to have hypotension as well after sedative medications for which he was started on Levophed. He was placed on versed and fentanyl for sedation. Imaging studies included a chest x-ray which showed cardiomegaly, pulmonary vascularity appeared normal with no evidence of pneumothorax or infiltrates. Head CT was also ordered and pending at the time of my eval. In addition to above patient was also given Lasix 40 mg IV x 1 and Levaquin 750 mg IV x 1. Upon admission he was started on broad spectrum antibiotics for suspected R>L cellulitis however patient did have underlying dependent rubra with chronic lymphedema/wounds. Blood cultures were drawn. Due to elevated troponin the trend of which was not indicative of acs he was started on heparin gtt. Also due to elevated d-dimer with inablity to entirely rule out acute PE however given the decrease of hypoxemia with out any chest x-ray findings of pulmonary edema possiblity of acute PE was high. Nephrology was also consulted due to worsening acute renal function. He was given lasix in ER however appeared for me intravascularly dry. Was started on IVF. He continued to require levophed to mantain MAP of greater than 65. 07/06/20 Overnight patient remained intubated on mechanical vent. He was started on broad spectrum antibiotics for suspected R>L cellulitis however patient did have underlying dependent rubra with chronic lymphedema/wounds. Blood cultures were drawn. Due to elevated troponin the trend of which was not indicative of acs he was started on heparin gtt. Also due to elevated d-dimer with inablity to entirely rule out acute PE however given the decrease of hypoxemia with out any chest x-ray findings of pulmonary edema possiblity of acute PE was high. Nephrology was also consulted due to worsening acute renal function. He was given lasix in ER however was started on IV fluids after seen by Nephrology. 07/07/2020 Patient was started on IV Lasix last evening. Noted to have 6 L urine output. Was weaned off her sed and transition to Precedex. Of 2 sets remained stable. Continue to require IV Levophed. 07/08/2020 Overnight no new clinical events. Patient remained on FiO2 of 50%. Noted to have 1400 mL output overnight. In a.m. he was weaned off Precedex. Did not have any fever overnight. Remained on low-dose of Precedex. Lasix were held by nephrology. Was given a dose of diamox. CT chest PE protocol was performed which did not show any evidence of acute embolism. heparin drip was discontinued. 07/09/2020 No clinical events overnight, patient was weaned off sedation and on pressure support this am, still very drowsy. Fio2 was weaned to 45%, PEEP of 5. Was arousable however with stimulation and followed commands. Would fall back asleep. 07/10/2020 No new clinical events overnight. Patient was at MMV. FiO2 of 45%. Peep of 5. Was off sedation. 07/11/2020 Patient was again started on weaning trial earlier at the time of my evaluation. Once sedation was weaned off patient had become tachycardic can became tachypneic. Eventually restarted on sedation and full vent support. Noted to have low-grade fevers overnight. 07/12/20 Patient became agitated, tachypneic on fentanyl and Precedex. He was transitioned to Versed however this morning this was changed back to Precedex. He was also given a one time dose of seth. Patient was arousable and minimally follows commands. 07/13/20 Overnight patient was noted to have multiple fevers. T-max of 103.1?. Also suspected to have a possible adverse reaction to cefepime. Early in a.m. he was however extubated. He had transition to BiPAP and subsequently nasal cannula. Was still remaining confused. addition was started on D5. Sodium trended down to 148. Potassium of 3.0 which was replaced. Medications: Reviewed: Yes Medication Review Details: Current Medications Albuterol/Ipratropium (Ipratropium-Albuterol 3 Ml Neb) 3 ml INHALATION Q4H.RESPIRATORY PRN PRN Reason: SHORTNESS OF BREATH Last Admin: 07/10/20 07:58 Dose: 3 ml Documented by: Budesonide (Budesonide 0.5 Mg/2 Ml Neb) 0.5 mg INHALATION BID.RESPIRATORY VIMAL Last Admin: 07/10/20 07:58 Dose: 0.5 mg Documented by: Famotidine (Famotidine 20 Mg/2 Ml Inj) 20 mg IVP Q12H VIMAL Last Admin: 07/10/20 05:07 Dose: 20 mg Documented by: Heparin Sodium (Beef Lung) (Heparin 5,000 Unit/Ml Inj 1 Ml) 5,000 unit SUBCUT Q8H [facility]IMAL Last Admin: 07/10/20 10:22 Dose: 5,000 unit Documented by: Rocuronium [place] 250 mg/ (Sodium Chloride) 250 mls @ 0 mls/hr IV .Q0M [facility]; Protocol Norepinephrine Bitartrate 4 mg (/ Dextrose) 254 mls @ 0 mls/hr IV .Q0M [facility]; Protocol Last Titration: 07/09/20 09:14 Dose: 0 mcg/min, 0 mls/hr Documented by: Dexmedetomidine HCl 400 mcg/ (Sodium Chloride) 104 mls @ 0 mls/hr IV .Q0M [facility]; Protocol Last Titration: 07/10/20 02:22 Dose: 0 mcg/kg/hr, 0 mls/hr Documented by: Imipenem/Cilastatin Sodium 500 (mg/ Sodium Chloride) 100 mls @ 200 mls/hr IV Q6H [facility]; Protocol Last Infusion: 07/10/20 11:00 Dose: Infused Documented by: Fentanyl 1,000 mcg/ Sodium (Chloride) 100 mls @ 0 mls/hr IV .Q0M [facility]; Protocol Methylprednisolone Sodium Succinate (Methylprednisolone Sod Succ 40 Mg/Ml Inj) 40 mg IVP Q8H [facility] Last Admin: 07/10/20 04:43 Dose: 40 mg Documented by: Ondansetron HCl (Ondansetron 2 Mg/Ml Sdv 2 Ml) 4 mg IVP Q6H PRN PRN Reason: NAUSEA AND VOMITING Vitals/I&O/Wt Last Vital Signs Temp 97 F L 07/13/20 16:00 Pulse 86 07/13/20 19:00 Resp 26 H 07/13/20 19:00 BP 103/64 07/13/20 19:00 Pulse Ox 94 07/13/20 19:00 07/13/20 07/13/20 07/13/20 06:59 14:59 22:59 Intake Total 647.145 / 2360.942 651.897 / 651.897 100 / 751.897 Output Total 900 / 3000 400 / 400 600 / 1000 Balance -252.855 / -639.058 251.897 / 251.897 -500 / -248.103 Weight last 48 hrs Weight 116.573 kg Physical Exam Narrative: EXAM NARRATIVE: General : Extubated on NC, Confused HEENT - Grossly unremarkable Chest - Decreased BS bilaterally CVS : NSR ABD ; Non-distended Ext : Bilateral LE with chronic wound, dependent rubra L>R - Improved. Neuro: Moving all extremitis. Urinary Catheter Management^: [place]: Cath Placed During This Visit: yes Reason for Continuing Indwelling Catheter: Accurate Measurement of Urinary Output in Critically Ill Patients Urinary Catheter Date of Insertion: 07/05/20 Urinary Catheter Time of Insertion: 15:50 Data : 07/12/20 18:02 07/13/20 16:15 Micro: Microbiology 07/12/20 08:40 Gram Stain - Final Sputum - Endotracheal Tube Aspirate Sputum Culture - Preliminary 07/13/20 02:30 Blood Culture - Preliminary Blood SPECIMEN COLLECTED 07/13/20 02:35 Blood Culture - Preliminary Blood SPECIMEN COLLECTED A&P Assessment and plan (1) Acute respiratory failure with hypoxia and hypercapnia: Status: Acute (2) Acute renal failure: Status: Acute Qualifiers: Acute renal failure type: with acute tubular necrosis Qualified Code(s): N17.0 - Acute kidney failure with tubular necrosis (3) Cellulitis: Status: Acute Qualifiers: Site of cellulitis: extremity Site of cellulitis of extremity: lower extremity Laterality: unspecified laterality Qualified Code(s): L03.119 - Cellulitis of unspecified part of limb (4) Chronic respiratory failure: Status: Acute (5) PAD (peripheral artery disease): Status: Acute (6) Mixed hyperlipidemia: Status: Acute (7) Lesion of true vocal cord: Status: Acute (8) Chronic bilateral low back pain: Status: Chronic Qualifiers: Sciatica presence: with sciatica Sciatica laterality: bilateral sciatica Qualified Code(s): M54.42 - Lumbago with sciatica, left side; M54.41 - Lumbago with sciatica, right side; G89.29 - Other chronic pain (9) Lower extremity edema: Status: Chronic (10) Transaminitis: Status: Acute (11) COPD (chronic obstructive pulmonary disease): Status: Chronic Qualifiers: COPD type: unspecified COPD Qualified Code(s): J44.9 - Chronic obstructive pulmonary disease, unspecified (12) Hyponatremia: Status: Acute Acute on chronic hypoxemic hypercapnia respiratory failure - On 6 L of o2 at baseline / Trilogy at home - Intubated on MV on arrival - > Extubated on 07/13 - Weaning low dose precedex - CTA chest - no PE - Duoneb q6r scheduled - Pulmicort 0.5 mg INH BID - Solu-medrol 40 mg IV q8h - chnaged to daily - Chest x-ray- Bilateral pulmonary infiltrates. There is increasing infiltrate in the mid right lung zone since the prior study. - Wean o2 as tolerated, Use trilogy q - Pulmonary on board and assisting with management 02/Steroid dependent COPD exacerbation - Management as noted above - Bronchodilators Fevers suspected to possible HCAP - Cefepime stopped - Resumed on imipenum - Levaquin 750 mg daily - Follow up on culture - Procalcitonin in am - Chest x-ray in am Acute systolic HF with cor pulmonale - Cardiomegaly noted on chest x-ray - Improving LE edema - Lasix 40 mg IV BID ordered - held by nephro on 07/07 - S/p Diamox x 4 days - ECHO - EF 45, with severe RV dysfunction - ProBMP - - Net negative balance -900cc - Replace Lytes Non-ST elevation CA - Troponin 474 ->480-> 426 - Cardiology consulted - ECHO noted - no RWM abnormality - Will likely require ischemic work up once stable Acute renal failure - resolved. - Creatinine 3.0 > 2.0 - > 1.2 - 1.0 - 0.8 - CK 832 on admit - BMP in am - Nephrology on board - Diuresis on hold Hypernatremia - Na 143- > 150 - D5w wiht 0.45ns - Repeat BMP in Am Hypokalemia, - Replaced KCL 40 MEq x 1 today - Repeat in AM - K. 3.4 - > 3.7 - > 3.0 Elevated D-Dimer - PE ruled out - Discontinue Heparin gtt -heparin 5000 units Q8hr for dvt ppx Elevated LFTs - Improving - Etiology likely due to right heart failure/passive congestion - AST 76-59 - 31 - ALT 397-257 - 126 - Hepatitis panel negative - CT abd/pelvis - stable Additional medical History Vocal cord malignancy s/p Chemo-radiation Hx of Colon cancer s/p p.colectomy Obstructive sleep apnea Peripheral arterial disease Polyneuropathy Gasteroesophageal reflux disease disease DVT ppx on heparin 5000 units Q8hr - held Attestations Medical Necessity Statement*: continue hospitalization for management of respiratory failure, infectious process, hypernatremia, hypokalemia Time Spent in Patient Care: Greater than 35 minutes Coding Level of Care Code 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 [facility] Diagnoses Acute respiratory failure with hypoxia and hypercapnia J96.01; J96.02 Acute renal failure N17.0 Acute renal failure type: with acute tubular necrosis Cellulitis L03.119 Site of cellulitis: extremity Site of cellulitis of extremity: lower extremity Laterality: unspecified laterality Chronic respiratory failure J96.10 PAD (peripheral artery disease) I73.9 Mixed hyperlipidemia E78.2 Lesion of true vocal cord J38.3 Chronic bilateral low back pain M54.42; M54.41; G89.29 Sciatica presence: with sciatica Sciatica laterality: bilateral sciatica Lower extremity edema R60.0 Transaminitis R74.01 COPD (chronic obstructive pulmonary disease) J44.9 COPD type: unspecified COPD Hyponatremia E87.1
--- NOTE | 2020-07-13 16:34 | PC.NURSE ---
Pt worked with patient today PT stood at bedside. Oxygen saturation improved form 90% to 96% after PT. PT tolerated activity well. Linen changed performed while pt was up.
[2020-07-13 17:02] LABS: Blood Urea Nitrogen 46 mg/dL (8-23); Calcium 8.3 mg/dL (8.5-10.5); Carbon Dioxide 35 mmol/L (22-29); Chloride 105 mmol/L (98-107); Glucose 162 mg/dL (65-115); Osmolality Calculated 321 mOsm/kg (285-295); Sodium 148 mmol/L (136-145)
[2020-07-13] MEDS: potassium chloride premix 100 ML 25 MEQ IV (17:50)
--- NOTE | 2020-07-13 18:07 | P.PN_ITS ---
Subjective Subjective: Interval history: Patient extubated this morning. He is currently on NC and feels well. Medications: Reviewed: Yes Medication Review Details: Current Medications Acetaminophen (Acetaminophen 325 Mg Tablet) 325 - 650 mg PO Q4H PRN PRN Reason: MILD PAIN OR INCREASE TEMP Acetaminophen (Acetaminophen 650 Mg Supp) 650 mg WA Q4H PRN PRN Reason: MILD PAIN OR INCREASE TEMP Last Admin: 07/13/20 09:19 Dose: 650 mg Documented by: Albuterol/Ipratropium (Ipratropium-Albuterol 3 Ml Neb) 3 ml INHALATION Q4H.RESPIRATORY PRN PRN Reason: SHORTNESS OF BREATH Last Admin: 07/13/20 13:47 Dose: 3 ml Documented by: Budesonide (Budesonide 0.5 Mg/2 Ml Neb) 0.5 mg INHALATION BID.RESPIRATORY VIMAL Last Admin: 07/13/20 07:26 Dose: 0.5 mg Documented by: Famotidine (Famotidine 20 Mg/2 Ml Inj) 20 mg IVP Q12H VIMAL Last Admin: 07/13/20 05:05 Dose: 20 mg Documented by: Fondaparinux (Fondaparinux 2.5 Mg/0.5 Ml Syringe) 2.5 mg SUBCUT DAILY VIMAL Last Admin: 07/13/20 10:01 Dose: 2.5 mg Documented by: Norepinephrine Bitartrate 4 mg (/ Dextrose) 254 mls @ 0 mls/hr IV .Q0M VIMAL; Protocol Last Titration: 07/13/20 10:05 Dose: 0 mcg/min, 0 mls/hr Documented by: Dexmedetomidine HCl 400 mcg/ (Sodium Chloride) 104 mls @ 0 mls/hr IV .Q0M VIMAL; Protocol Last Titration: 07/13/20 12:15 Dose: 0 mcg/kg/hr, 0 mls/hr Documented by: Imipenem/Cilastatin Sodium 500 (mg/ Sodium Chloride) 100 mls @ 200 mls/hr IV Q6H VIMAL; Protocol Last Infusion: 07/13/20 16:31 Dose: Infused Documented by: Dextrose (D5w) 1,000 mls @ 75 mls/hr IV .[id number] VIMAL Last Infusion: 07/13/20 12:47 Dose: 75 mls/hr Documented by: Linezolid (Zyvox Premix) 600 mg in 300 mls @ 300 mls/hr IV Q12H [facility]; Protocol Potassium Chloride (K-Petey) 100 mls @ 25 mls/hr IV ONCE ONE Stop: 07/13/20 21:13 Last Admin: 07/13/20 17:50 Dose: 25 mls/hr Documented by: Levofloxacin (Levofloxacin 750 Mg Tablet) 750 mg PO DAILY@0600 [facility]; Protocol Last Admin: 07/13/20 05:05 Dose: 750 mg Documented by: Methylprednisolone Sodium Succinate (Methylprednisolone Sod Succ 40 Mg/Ml Inj) 40 mg IVP DAILY [facility] Last Admin: 07/13/20 08:57 Dose: 40 mg Documented by: Morphine Sulfate (Morphine 4 Mg/Ml Sdv 1 Ml) 2 mg IVP Q2H PRN PRN Reason: SEVERE PAIN Last Admin: 07/13/20 02:39 Dose: 2 mg Documented by: Potassium Phosphate (Phosphorus 250 Mg Tablet) 250 mg PO BID [facility] Vitals/I&O/Wt Last Vital Signs Temp 97 F L 07/13/20 16:00 Pulse 100 07/13/20 16:00 Resp 23 H 07/13/20 16:00 BP 95/47 07/13/20 16:00 Pulse Ox 94 07/13/20 16:00 07/13/20 07/13/20 07/13/20 06:59 14:59 22:59 Intake Total 647.145 / 2360.942 651.897 / 651.897 100 / 751.897 Output Total 900 / 3000 400 / 400 600 / 1000 Balance -252.855 / -639.058 251.897 / 251.897 -500 / -248.103 Weight last 48 hrs Weight 257 lb Physical Exam Narrative: EXAM NARRATIVE: GENERAL: Patient is extubated to MA NECK: No jugular vein distension appreciated. HEENT: No cyanosis. No icterus. No pallor. HEART: Regular S1 and S2. No murmur, rub or gallop. LUNGS:coarse bilateral breath sounds ABDOMEN: Soft, nondistended. CENTRAL NERVOUS SYSTEM: sedated EXTREMITIES: Lower extremities trace edema bilaterally. Bilateral leg chronic discoloration Urinary Catheter Management^: [place]: Cath Placed During This Visit: yes Reason for Continuing Indwelling Catheter: Accurate Measurement of Urinary Output in Critically Ill Patients Urinary Catheter Date of Insertion: 07/05/20 Urinary Catheter Time of Insertion: 15:50 Data : 07/12/20 18:02 07/13/20 16:15 Micro: Microbiology 07/12/20 08:40 Gram Stain - Final Sputum - Endotracheal Tube Aspirate Sputum Culture - Preliminary 07/13/20 02:30 Blood Culture - Preliminary Blood SPECIMEN COLLECTED 07/13/20 02:35 Blood Culture - Preliminary Blood SPECIMEN COLLECTED A&P Assessment and plan (1) Cardiomyopathy: newly diagnosed drop in LV function. -He will require further ischemic w/u once stable. Status: Acute Qualifiers: Cardiomyopathy type: unspecified Qualified Code(s): I42.9 - Cardiomyopathy, unspecified (2) Acute cor pulmonale: Most likely secondary to COPD; CT scan negative for PE Status: Acute (3) Acute renal failure: Improved. Nephrology is on board Status: Acute Qualifiers: Acute renal failure type: with acute tubular necrosis Qualified Code(s): N17.0 - Acute kidney failure with tubular necrosis (4) Elevated troponin: NSTEMI type II in setting of renal failure and respiratory failure Status: Acute Additional A&P Information Acute on chronic respiratory failure on vent Hypernatremia Metabolic alkalosis HTN COPD PAD SCC of vocal cord MANISH Abnormal liver enzymes Hypokalemia Attestations Medical Necessity Statement*: As per primary team Coding Level of Care Code Acute Program Director/Traffic Director for [facility] Diagnoses Cardiomyopathy I42.9 Cardiomyopathy type: unspecified Acute cor pulmonale I26.09 Acute renal failure N17.0 Acute renal failure type: with acute tubular necrosis Elevated troponin R77.8
[2020-07-13] MEDS: linezolid premix 600 MG/300 ML PREMIX 300 MG IV (18:32)
[2020-07-13] MEDS: phosphorus 250 mg Tablet PO (18:32)
[2020-07-14] VITALS (57 sets, daily range): BP systolic 94–146; BP diastolic 55–99; PULSE 84–137; RESP 16–30; TEMP 36.6–37.1; O2SAT 87–97
[2020-07-14] MEDS: dextrose 5% 1,000 ML 75 ML IV ×2 (00:35→14:44)
[2020-07-14] MEDS: ipratropium-albuterol 3 mL Neb INHALATION ×5 (02:04→21:10)
[2020-07-14] MEDS: linezolid premix 600 MG/300 ML PREMIX 300 MG IV ×2 (05:39→17:41)
[2020-07-14 05:40] LABS: Lactate (Lactic Acid level) 1.4 mmol/L (0.5-2.2)
[2020-07-14] MEDS: famotidine 20 mg/2 mL INJ IVP ×2 (05:40→17:41)
[2020-07-14] MEDS: levoFLOXacin 750 mg Tablet PO (05:40)
[2020-07-14 05:50] LABS: Procalcitonin 1.34 ng/mL (0-0.5)
[2020-07-14 06:07] LABS: Alanine Aminotransferase 20 U/L (0-41); Albumin Level 2.1 g/dL (3.5-5.2); Alkaline Phosphatase 61 IU/L (40-130); Anion Gap 12.7 (5-19); Aspartate Amino Transferase 18 U/L (0-40); Blood Urea Nitrogen 36 mg/dL (8-23); Calcium 7.9 mg/dL (8.5-10.5); Carbon Dioxide 30 mmol/L (22-29); Chloride 98 mmol/L (98-107); Globulin 2.5 g/dL (1.3-4.6); Glomerular Filtration Rate 165.4 mL/min (90-130); Glucose 374 mg/dL (65-115); Magnesium 1.4 mg/dL (1.7-2.3); Osmolality Calculated 310 mOsm/kg (285-295); Phosphorus 1.5 mg/dL (2.5-4.5); Sodium 138 mmol/L (136-145); Total Bilirubin 1.6 mg/dL (0.15-1.2); Total Protein 4.6 g/dL (6.6-8.7)
[2020-07-14 06:15] LABS: Potassium 2.7 mmol/L (3.5-5.1)
--- NOTE | 2020-07-14 06:50 | PC.NURSE ---
Critical lab of potassium 2.7 notified to MD customer solutions specialist.
--- NOTE | 2020-07-14 06:51 | PC.NURSE ---
Shift Summary: Pt rested off and on throughout shift. He frequently asks RN to let come and visit/stay with him. stated pt unable to understand why precautions are in place with strict visiting hours. O2 via NC was titrated up to 5L at one point, but has now been titrated back down to 4LNC. Pulse ox remained between 90-93%. Increased dyspnea noted with increased activity. Education given/reinforced on chin tuck when swallowing. RN worked with pt frequently on exercises regarding fingers to nose and mouth, etc. Pt often gets upset with needed assistance regarding pt care, but is easily calmed with reassurance from Nursing staff. 1275 (orange-dark red) u/o Report given to oncoming dayshift RN
--- NOTE | 2020-07-14 07:00 | XRR_ITS ---
PROCEDURE INFORMATION: Exam: XR Chest, 1 View Exam date and time: 07/14/2020 5:27 AM Age: 70 years old Clinical indication: Condition or disease; Lung condition and disease; Respiratory failure TECHNIQUE: Imaging protocol: XR of the chest Views: 1 view. COMPARISON: CR XR chest 1V portable [id number] 07/13/2020 5:18 AM FINDINGS: Tubes, catheters and devices: A right arm PICC is present in the SVC. Lungs: The bilateral pulmonary infiltrates are present especially in the left lung base. The left basilar infiltrate has worsened when compared to the previous study from 07/13/2020. Pleural spaces: Small effusions cannot be excluded. No pneumothorax is seen. Heart/Mediastinum: Unremarkable. No cardiomegaly. Bones/joints: Unremarkable. XR/XR chest 1V portable [id number] IMPRESSION: Bibasilar pulmonary infiltrates are present especially on the left side. The left basilar infiltrate has increased since previous study.
[2020-07-14] MEDS: lidocaine 1% 5 ML in potassium chloride premix 100 ML 25 ML IV (07:43)
[2020-07-14] MEDS: budesonide 0.5 mg/2 mL Neb INHALATION ×2 (07:48→21:11)
[2020-07-14] MEDS: fondaparinux 2.5 mg/0.5 mL Syringe SUBCUT (08:39)
[2020-07-14] MEDS: phosphorus 250 mg Tablet PO ×3 (08:40→20:33)
--- NOTE | 2020-07-14 09:48 | PM.PN ---
Subjective Subjective: Interval history: no new complaints. sitting up on edge of bed + new gross hematuria in [place] Medications: Reviewed: Yes Vitals/I&O/Wt Last Vital Signs Temp 98.5 F 07/14/20 04:30 Pulse 103 H 07/14/20 07:53 Resp 22 H 07/14/20 07:52 BP 94/76 07/14/20 06:00 Pulse Ox 96 07/14/20 07:53 07/13/20 07/14/20 07/14/20 22:59 06:59 14:59 Intake Total 1387.5 / 2039.397 100 / 2139.397 300 / 300 Output Total 1125 / 1525 750 / 2275 Balance 262.5 / 514.397 -650 / -135.603 300 / 300 Weight last 48 hrs Weight 116.574 kg Weight 116.573 kg Physical Exam Const: COMMON NORMALS: no acute distress GENERAL APPEARANCE: cooperative Extremity: GENERAL: No edema Urinary Catheter Management^: [place]: Cath Placed During This Visit: yes Reason for Continuing Indwelling Catheter: Accurate Measurement of Urinary Output in Critically Ill Patients Urinary Catheter Date of Insertion: 07/05/20 Urinary Catheter Time of Insertion: 15:50 Data : 07/12/20 18:02 07/14/20 04:50 Micro: Microbiology 07/12/20 08:40 Gram Stain - Final Sputum - Endotracheal Tube Aspirate Sputum Culture - Final 07/13/20 02:30 Blood Culture - Preliminary Blood NEGATIVE TO DATE 07/13/20 02:35 Blood Culture - Preliminary Blood NEGATIVE TO DATE ABG Interpretation 1: 7.52/44.8/62.4 Phos 1.5, Mg 1.4, albumin 2.1, Calcium Pinky 9.4 A&P Additional A&P Information 1. Acute kidney injury, good urine output, serum creatinine baseline 2. Hypernatremia, resolved 3. Hypophosphatemia, replacing orally, Kphos rider today 4. Hypercapneic respiratory failure, improving 5. Hypokalemia, metabolic alkalosis, IV K riders ordered for today 6. Hypomagnesemia - replace IV Attestations Medical Necessity Statement*: continues to require ICU care Time Spent in Patient Care: Greater than 35 minutes Coding Level of Care Code Acute Rehabilitation Services Manager for [facility] Roseann
--- NOTE | 2020-07-14 10:48 | P.PN_ITS ---
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 History was obtained from review of records and discussion with ER staff. Patient was apparently found to have oxygen saturation in mid 70s with increasing o2 requirement. Upon arrival to ER he was placed on BiPAP. Initial laboratory work up showed a WBC of 11.1, hemoglobin of 14.0, hematocrit 44.5 and platelet count of 183. Sodium 125, potassium 4.6, chloride 77, bicarb 32, BUN 136 and creatinine of 3.0. Lactic acid of 2.0. AST of 76, ALT of 397 and alkaline phosphatase of 186. Troponin T 474 - > 480.6, Delta troponin T of 6.6. ProBNP of 20,006. INR of 1.65, D-dimer of 2.84. Initial ABG on BiPAP of 7.33, PCO2 of 72.8, Po2 of 89.6, bicarb of 37.9. Patient was not tolerating Bipap due to agitation. He was subsequently intubated on placed on mechanical ventilation. Was noted to have hypotension as well after sedative medications for which he was started on Levophed. He was placed on versed and fentanyl for sedation. Imaging studies included a chest x-ray which showed cardiomegaly, pulmonary vascularity appeared normal with no evidence of pneumothorax or infiltrates. Head CT was also ordered and pending at the time of my eval. In addition to above patient was also given Lasix 40 mg IV x 1 and Levaquin 750 mg IV x 1. Upon admission he was started on broad spectrum antibiotics for suspected R>L cellulitis however patient did have underlying dependent rubra with chronic lymphedema/wounds. Blood cultures were drawn. Due to elevated troponin the trend of which was not indicative of acs he was started on heparin gtt. Also due to elevated d-dimer with inablity to entirely rule out acute PE however given the decrease of hypoxemia with out any chest x-ray findings of pulmonary edema possiblity of acute PE was high. Nephrology was also consulted due to worsening acute renal function. He was given lasix in ER however appeared for me intravascularly dry. Was started on IVF. He continued to require levophed to mantain MAP of greater than 65. 07/06/20 Overnight patient remained intubated on mechanical vent. He was started on broad spectrum antibiotics for suspected R>L cellulitis however patient did have underlying dependent rubra with chronic lymphedema/wounds. Blood cultures were drawn. Due to elevated troponin the trend of which was not indicative of acs he was started on heparin gtt. Also due to elevated d-dimer with inablity to entirely rule out acute PE however given the decrease of hypoxemia with out any chest x-ray findings of pulmonary edema possiblity of acute PE was high. Nephrology was also consulted due to worsening acute renal function. He was given lasix in ER however was started on IV fluids after seen by Nephrology. 07/07/2020 Patient was started on IV Lasix last evening. Noted to have 6 L urine output. Was weaned off her sed and transition to Precedex. Of 2 sets remained stable. Continue to require IV Levophed. 07/08/2020 Overnight no new clinical events. Patient remained on FiO2 of 50%. Noted to have 1400 mL output overnight. In a.m. he was weaned off Precedex. Did not have any fever overnight. Remained on low-dose of Precedex. Lasix were held by nephrology. Was given a dose of diamox. CT chest PE protocol was performed wh ich did not show any evidence of acute embolism. heparin drip was discontinued. 07/09/2020 No clinical events overnight, patient was weaned off sedation and on pressure support this am, still very drowsy. Fio2 was weaned to 45%, PEEP of 5. Was arousable however with stimulation and followed commands. Would fall back asleep. 07/10/2020 No new clinical events overnight. Patient was at MMV. FiO2 of 45%. Peep of 5. Was off sedation. 07/11/2020 Patient was again started on weaning trial earlier at the time of my evaluation. Once sedation was weaned off patient had become tachycardic can became tachypneic. Eventually restarted on sedation and full vent support. Noted to have low-grade fevers overnight. 07/12/20 Patient became agitated, tachypneic on fentanyl and Precedex. He was transitioned to Versed however this morning this was changed back to Precedex. He was also given a one time dose of seth. Patient was arousable and minimally follows commands. 07/13/20 Overnight patient was noted to have multiple fevers. T-max of 103.1?. Also suspected to have a possible adverse reaction to cefepime. Early in a.m. he was however extubated. He had transition to BiPAP and subsequently nasal cannula. Was still remaining confused. addition was started on D5. Sodium trended down to 148. Potassium of 3.0 which was replaced. 07/14 Extubated,no distress Medications: Reviewed: Yes Medication Review Details: Current Medications Albuterol/Ipratropium (Ipratropium-Albuterol 3 Ml Neb) 3 ml INHALATION Q4H.RESPIRATORY PRN PRN Reason: SHORTNESS OF BREATH Last Admin: 07/10/20 07:58 Dose: 3 ml Documented by: Budesonide (Budesonide 0.5 Mg/2 Ml Neb) 0.5 mg INHALATION BID.RESPIRATORY VIMAL Last Admin: 07/10/20 07:58 Dose: 0.5 mg Documented by: Famotidine (Famotidine 20 Mg/2 Ml Inj) 20 mg IVP Q12H VIMAL Last Admin: 07/10/20 05:07 Dose: 20 mg Documented by: Heparin Sodium (Beef Lung) (Heparin 5,000 Unit/Ml Inj 1 Ml) 5,000 unit SUBCUT Q8H VIMAL Last Admin: 07/10/20 10:22 Dose: 5,000 unit Documented by: Rocuronium [place] 250 mg/ (Sodium Chloride) 250 mls @ 0 mls/hr IV .Q0M VIMAL; Protocol Norepinephrine Bitartrate 4 mg (/ Dextrose) 254 mls @ 0 mls/hr IV .Q0M VIMAL; Protocol Last Titration: 07/09/20 09:14 Dose: 0 mcg/min, 0 mls/hr Documented by: Dexmedetomidine HCl 400 mcg/ (Sodium Chloride) 104 mls @ 0 mls/hr IV .Q0M VIMAL; Protocol Last Titration: 07/10/20 02:22 Dose: 0 mcg/kg/hr, 0 mls/hr Documented by: Imipenem/Cilastatin Sodium 500 (mg/ Sodium Chloride) 100 mls @ 200 mls/hr IV Q6H VIMAL; Protocol Last Infusion: 07/10/20 11:00 Dose: Infused Documented by: Fentanyl 1,000 mcg/ Sodium (Chloride) 100 mls @ 0 mls/hr IV .Q0M VIMAL; Protocol Methylprednisolone Sodium Succinate (Methylprednisolone Sod Succ 40 Mg/Ml Inj) 40 mg IVP Q8H [facility] Last Admin: 07/10/20 04:43 Dose: 40 mg Documented by: Ondansetron HCl (Ondansetron 2 Mg/Ml Sdv 2 Ml) 4 mg IVP Q6H PRN PRN Reason: NAUSEA AND VOMITING Vitals/I&O/Wt Last Vital Signs Temp 97.2 F L 07/15/20 10:00 Pulse 111 H 07/15/20 10:00 Resp 17 07/15/20 10:00 BP 142/91 07/15/20 10:00 Pulse Ox 96 07/15/20 10:00 07/14/20 07/15/20 07/15/20 22:59 06:59 14:59 Intake Total 814.0909 / 2574.0909 1587.5 / 4161.5909 340 / 340 Output Total 3525 / 3525 2600 / 6125 950 / 950 Balance -2710.9091 / -950.9091 -1012.5 / -1963.4091 -610 / -610 Weight last 48 hrs Weight 108.862 kg Weight 108.862 kg Weight 116.574 kg Physical Exam Narrative: EXAM NARRATIVE: General : Extubated on NC, Confused HEENT - Grossly unremarkable Chest - Decreased BS bilaterally CVS : NSR ABD ; Non-distended Ext : Bilateral LE with chronic wound, dependent rubra L>R - Improved. Neuro: Moving all extremitis. Urinary Catheter Management^: [place]: Cath Placed During This Visit: yes Reason for Continuing Indwelling Catheter: Accurate Measurement of Urinary Output in Critically Ill Patients Urinary Catheter Date of Insertion: 07/05/20 Urinary Catheter Time of Insertion: 15:50 Data : 07/15/20 03:46 07/15/20 03:46 Micro: Microbiology 07/14/20 14:00 Urine Culture - Preliminary Urine Catheterized 07/12/20 08:40 Gram Stain - Final Sputum - Endotracheal Tube Aspirate Sputum Culture - Final A&P Assessment and plan (1) Acute respiratory failure with hypoxia and hypercapnia: Status: Acute (2) Acute renal failure: Status: Acute Qualifiers: Acute renal failure type: with acute tubular necrosis Qualified Code(s): N17.0 - Acute kidney failure with tubular necrosis (3) Cellulitis: Status: Acute Qualifiers: Site of cellulitis: extremity Site of cellulitis of extremity: lower extremity Laterality: unspecified laterality Qualified Code(s): L03.119 - Cellulitis of unspecified part of limb (4) Chronic respiratory failure: Status: Acute (5) PAD (peripheral artery disease): Status: Acute (6) Mixed hyperlipidemia: Status: Acute (7) Lesion of true vocal cord: Status: Acute (8) Chronic bilateral low back pain: Status: Chronic Qualifiers: Sciatica presence: with sciatica Sciatica laterality: bilateral sci atica Qualified Code(s): M54.42 - Lumbago with sciatica, left side; M54.41 - Lumbago with sciatica, right side; G89.29 - Other chronic pain (9) Lower extremity edema: Status: Chronic (10) Transaminitis: Status: Acute (11) COPD (chronic obstructive pulmonary disease): Status: Chronic Qualifiers: COPD type: unspecified COPD Qualified Code(s): J44.9 - Chronic obstructive pulmonary disease, unspecified (12) Hyponatremia: Status: Acute Acute on chronic hypoxemic hypercapnia respiratory failure - On 6 L of o2 at baseline / Trilogy at home - Intubated on MV on arrival - > Extubated on 07/13 - Weaning low dose precedex - CTA chest - no PE - Duoneb q6r scheduled - Pulmicort 0.5 mg INH BID - Solu-medrol 40 mg IV q8h - chnaged to daily - Chest x-ray- Bilateral pulmonary infiltrates. There is increasing infiltrate in the mid right lung zone since the prior study. - Wean o2 as tolerated, Use trilogy q - Pulmonary on board and assisting with management 02/Steroid dependent COPD exacerbation - Management as noted above - Bronchodilators Fevers suspected to possible HCAP - Cefepime stopped - Resumed on imipenum - Levaquin 750 mg daily - Follow up on culture - Procalcitonin in am - Chest x-ray in am Acute systolic HF with cor pulmonale - Cardiomegaly noted on chest x-ray - Improving LE edema - Lasix 40 mg IV BID ordered - held by nephro on 07/07 - S/p Diamox x 4 days - ECHO - EF 45, with severe RV dysfunction - ProBMP - - Net negative balance -900cc - Replace Lytes Non-ST elevation CO - Troponin 474 ->480-> 426 - Cardiology consulted - ECHO noted - no RWM abnormality - Will likely require ischemic work up once stable Acute renal failure - resolved. - Creatinine 3.0 > 2.0 - > 1.2 - 1.0 - 0.8 - CK 832 on admit - BMP in am - Nephrology on board - Diuresis on hold Hypernatremia - Na 143- > 150 - D5w wiht 0.45ns - Repeat BMP in Am Hypokalemia, - Replaced KCL 40 MEq x 1 today - Repeat in AM - K. 3.4 - > 3.7 - > 3.0 Elevated D-Dimer - PE ruled out - Discontinue Heparin gtt -heparin 5000 units Q8hr for dvt ppx Elevated LFTs - Improving - Etiology likely due to right heart failure/passive congestion - AST 76-59 - 31 - ALT 397-257 - 126 - Hepatitis panel negative - CT abd/pelvis - stable Additional medical History Vocal cord malignancy s/p Chemo-radiation Hx of Colon cancer s/p p.colectomy Obstructive sleep apnea Peripheral arterial disease Polyneuropathy Gasteroesophageal reflux disease disease DVT ppx on heparin 5000 units Q8hr - held Attestations Medical Necessity Statement*: wiill need further hospitalization for management of respiratory failure Time Spent in Patient Care: Greater than 35 minutes Coding Level of Care Code Acute Vice President For Instruction for [facility] Fwd Diagnoses Acute respiratory failure with hypoxia and hypercapnia J96.01; J96.02 Acute renal failure N17.0 Acute renal failure type: with acute tubular necrosis Cellulitis L03.119 Site of cellulitis: extremity Site of cellulitis of extremity: lower extremity Laterality: unspecified laterality Chronic respiratory failure J96.10 PAD (peripheral artery disease) I73.9 Mixed hyperlipidemia E78.2 Lesion of true vocal cord J38.3 Chronic bilateral low back pain M54.42; M54.41; G89.29 Sciatica presence: with sciatica Sciatica laterality: bilateral sciatica Lower extremity edema R60.0 Transaminitis R74.01 COPD (chronic obstructive pulmonary disease) J44.9 COPD type: unspecified COPD Hyponatremia E87.1
[2020-07-14] MEDS: magnesium sulfate premix 4 GM/100 ML PREMIX IV (11:48)
[2020-07-14 14:40] LABS: Bilirubin Urine Neg (Negative); Blood Urine 3+ (Negative); Glucose Urine UA Norm (Normal); Ketones Urine Negative (Negative); Leukocyte Esterase Urine Negative (Negative); Nitrate Urine Negative (Negative); Protein Urine 1+ (Negative); RBC Urine TOO NUMEROUS TO CNT /hpf (0-2); Specific Gravity, Urine 1.015 (1.005-1.030); Urine Appearance SL Hazy (CLEAR); Urine Color Red (Yellow); Urobilinogen Urine 1 mg/dL (Negative); pH Urine 7 (5-7)
[2020-07-14 14:41] LABS: Add Urine Culture? Yes; Bacteria Urine 1+ /hpf
--- NOTE | 2020-07-14 16:01 | P.PN_ITS ---
Subjective Subjective: Interval history: Patient was extubated yesterday. He denies any complaints of chest pain. He is short of breath. Has gross hematuria. WBC count is significantly elevated. Has crackles bilaterally. Vitals/I&O/Wt Last Vital Signs Temp 98.5 F 07/14/20 04:30 Pulse 93 07/14/20 15:35 Resp 20 H 07/14/20 15:34 BP 126/70 07/14/20 14:00 Pulse Ox 94 07/14/20 15:34 07/14/20 07/14/20 07/14/20 06:59 14:59 22:59 Intake Total 100 / 2139.397 1760 / 1760 Output Total 750 / 2275 Balance -650 / -058.295 2513 / 1760 Weight last 48 hrs Weight 257 lb 0.034 oz Weight 257 lb Physical Exam Narrative: EXAM NARRATIVE: GENERAL: Patient is alert, awake and oriented x3. [] NECK: No jugular vein distension. [] HEENT: No cyanosis. No icterus. No pallor. [] HEART: Regular S1 and S2. No murmur, rub or gallop. [] LUNGS: Clear to auscultate bilaterally. [] ABDOMEN: Soft, nontender and nondistended. Positive bowel sounds. No guarding, rebound or tenderness. [] CENTRAL NERVOUS SYSTEM: Grossly nonfocal. [] EXTREMITIES: Lower extremities with 1+ edema bilaterally. Pulses palpable in the lower extremities, both dorsalis pedis and posterior tibial. [] Urinary Catheter Management^: [place]: Cath Placed During This Visit: yes Reason for Continuing Indwelling Catheter: Accurate Measurement of Urinary Output in Critically Ill Patients Urinary Catheter Date of Insertion: 07/05/20 Urinary Catheter Time of Insertion: 15:50 Data : 07/12/20 18:02 07/14/20 04:50 Micro: Microbiology 07/12/20 08:40 Gram Stain - Final Sputum - Endotracheal Tube Aspirate Sputum Culture - Final 07/13/20 02:30 Blood Culture - Preliminary Blood NEGATIVE TO DATE 07/13/20 02:35 Blood Culture - Preliminary Blood NEGATIVE TO DATE A&P Assessment and plan (1) Cardiomyopathy: newly diagnosed drop in LV function. -He will require further ischemic w/u once stable. We will start IV Lasix. We will need to monitor potassium and magnesium closely and replace as needed. Strict I&O's. Will titrate Lasix based on response and renal function. Status: Acute Qualifiers: Cardiomyopathy type: unspecified Qualified Code(s): I42.9 - Cardiomyopathy, unspecified (2) Acute cor pulmonale: Most likely secondary to COPD; CT scan negative for PE Status: Acute (3) Acute renal failure: Improved. Nephrology is on board Status: Acute Qualifiers: Acute renal failure type: with acute tubular necrosis Qualified Code(s): N17.0 - Acute kidney failure with tubular necrosis (4) Elevated troponin: NSTEMI type II in setting of renal failure and respiratory failure Status: Acute Additional A&P Information Acute on chronic respiratory failure on vent Hypernatremia Metabolic alkalosis HTN COPD PAD SCC of vocal cord MANISH Abnormal liver enzymes Hypokalemia Attestations Medical Necessity Statement*: Care expected to cross 2 midnights. Coding Level of Care Code Acute Deck And Hull Assembler for [facility] Fwd Diagnoses Cardiomyopathy I42.9 Cardiomyopathy type: unspecified Acute cor pulmonale I26.09 Acute renal failure N17.0 Acute renal failure type: with acute tubular necrosis Elevated troponin R77.8
[2020-07-14] MEDS: FUROsemide 10 mg/mL SDV 10mL 80 MG IVP (16:52)
[2020-07-15] VITALS (39 sets, daily range): BP systolic 109–144; BP diastolic 65–100; PULSE 73–145; RESP 14–38; TEMP 36.2–36.8; O2SAT 91–98; BMI 29.9
[2020-07-15] MEDS: ipratropium-albuterol 3 mL Neb INHALATION ×3 (02:15→20:14)
[2020-07-15] MEDS: dextrose 5% 1,000 ML 75 ML IV ×2 (03:22→17:29)
[2020-07-15 04:34] LABS: Basophils % 0.1 %; Hematocrit 46.8 % (42.0-52.0); Hemoglobin 13.9 g/dL (11.7-16.6); Lymphocytes # 0.8 10^3/uL (0.8-4.8); Lymphocytes % 3.5 %; Mean Corpuscular HGB Conc 29.7 g/dL (30.0-36.0); Mean Corpuscular Hemoglobin 27.5 pg (28.0-34.0); Mean Corpuscular Volume 92.7 fL (80-94); Monocytes # 1.2 10^3/uL (0.2-0.9); Monocytes % 5.5 %; Neutrophils # 20.02 10^3/uL (1.8-7.7); Neutrophils % 89.7 %; Nucleated Red Blood Cells % 0 %; Platelet Count 52 10^3/cmm (130-400); Red Blood Count 5.05 10^6/uL (4.1-5.3); Red Cell Distribution Width 14.2 % (12.1-15.1); White Blood Count 22.3 10^3/uL (4.0-10.0)
[2020-07-15] MEDS: FUROsemide 10 mg/mL SDV 10mL 80 MG IVP ×2 (04:35→15:31)
[2020-07-15 04:56] LABS: Alanine Aminotransferase 23 U/L (0-41); Albumin Level 2.4 g/dL (3.5-5.2); Alkaline Phosphatase 90 IU/L (40-130); Aspartate Amino Transferase 23 U/L (0-40); Blood Urea Nitrogen 26 mg/dL (8-23); Calcium 8.2 mg/dL (8.5-10.5); Carbon Dioxide 35 mmol/L (22-29); Chloride 97 mmol/L (98-107); Globulin 2.6 g/dL (1.3-4.6); Glomerular Filtration Rate 165.4 mL/min (90-130); Glucose 99 mg/dL (65-115); Magnesium 1.7 mg/dL (1.7-2.3); Osmolality Calculated 297 mOsm/kg (285-295); Phosphorus 2.6 mg/dL (2.5-4.5); Sodium 141 mmol/L (136-145); Total Bilirubin 1.6 mg/dL (0.15-1.2)
[2020-07-15 05:13] LABS: Anion Gap 12.4 (5-19); Potassium 3.4 mmol/L (3.5-5.1)
[2020-07-15] MEDS: acetaminophen 325 mg Tablet PO (05:31)
[2020-07-15] MEDS: linezolid premix 600 MG/300 ML PREMIX 300 MG IV ×2 (05:31→17:29)
[2020-07-15] MEDS: famotidine 20 mg/2 mL INJ IVP ×2 (05:32→17:28)
[2020-07-15] MEDS: levoFLOXacin 750 mg Tablet PO (05:32)
[2020-07-15] MEDS: fondaparinux 2.5 mg/0.5 mL Syringe SUBCUT (08:21)
[2020-07-15] MEDS: phosphorus 250 mg Tablet PO ×3 (08:21→21:20)
--- NOTE | 2020-07-15 08:30 | PM.PN ---
Subjective Subjective: Interval history: feels better, eating, pruitt w/ hematuria Medications: Reviewed: Yes Medication Review Details: Current Medications Acetaminophen (Acetaminophen 325 Mg Tablet) 325 - 650 mg PO Q4H PRN PRN Reason: MILD PAIN OR INCREASE TEMP Last Admin: 07/15/20 05:31 Dose: 650 mg Documented by: Acetaminophen (Acetaminophen 650 Mg Supp) 650 mg TX Q4H PRN PRN Reason: MILD PAIN OR INCREASE TEMP Last Admin: 07/13/20 09:19 Dose: 650 mg Documented by: Albuterol/Ipratropium (Ipratropium-Albuterol 3 Ml Neb) 3 ml INHALATION Q4H.RESPIRATORY PRN PRN Reason: SHORTNESS OF BREATH Last Admin: 07/15/20 02:15 Dose: 3 ml Documented by: Budesonide (Budesonide 0.5 Mg/2 Ml Neb) 0.5 mg INHALATION BID.RESPIRATORY VIMAL Last Admin: 07/15/20 07:52 Dose: Not Given Documented by: Famotidine (Famotidine 20 Mg/2 Ml Inj) 20 mg IVP Q12H VIMAL Last Admin: 07/15/20 05:32 Dose: 20 mg Documented by: Fondaparinux (Fondaparinux 2.5 Mg/0.5 Ml Syringe) 2.5 mg SUBCUT DAILY VIMAL Last Admin: 07/15/20 08:21 Dose: 2.5 mg Documented by: Furosemide (Furosemide 10 Mg/Ml Sdv 10ml) 80 mg IVP Q12H VIMAL Last Admin: 07/15/20 04:35 Dose: 80 mg Documented by: Norepinephrine Bitartrate 4 mg (/ Dextrose) 254 mls @ 0 mls/hr IV .Q0M VIMAL; Protocol Last Titration: 07/13/20 19:09 Dose: Infused Documented by: Dexmedetomidine HCl 400 mcg/ (Sodium Chloride) 104 mls @ 0 mls/hr IV .Q0M VIMAL; Protocol Last Titration: 07/13/20 19:08 Dose: Infused Documented by: Imipenem/Cilastatin Sodium 500 (mg/ Sodium Chloride) 100 mls @ 200 mls/hr IV Q6H VIMAL; Protocol Last Admin: 07/15/20 08:21 Dose: 200 mls/hr Documented by: Dextrose (D5w) 1,000 mls @ 75 mls/hr IV .[id number] VIMAL Last Admin: 07/15/20 03:22 Dose: 75 mls/hr Documented by: Linezolid (Zyvox Premix) 600 mg in 300 mls @ 300 mls/hr IV Q12H [facility]; Protocol Last Infusion: 07/15/20 06:31 Dose: Infused Documented by: Levofloxacin (Levofloxacin 750 Mg Tablet) 750 mg PO DAILY@0600 [facility]; Protocol Last Admin: 07/15/20 05:32 Dose: 750 mg Documented by: Methylprednisolone Sodium Succinate (Methylprednisolone Sod Succ 40 Mg/Ml Inj) 40 mg IVP DAILY [facility] Last Admin: 07/15/20 08:22 Dose: 40 mg Documented by: Morphine Sulfate (Morphine 4 Mg/Ml Sdv 1 Ml) 2 mg IVP Q2H PRN PRN Reason: SEVERE PAIN Last Admin: 07/13/20 02:39 Dose: 2 mg Documented by: Potassium Phosphate (Phosphorus 250 Mg Tablet) 250 mg PO TID [facility] Last Admin: 07/15/20 08:21 Dose: 250 mg Documented by: Vitals/I&O/Wt Last Vital Signs Temp 98.3 F 07/15/20 08:00 Pulse 133 H 07/15/20 08:00 Resp 21 H 07/15/20 08:00 BP 144/72 07/15/20 08:00 Pulse Ox 93 07/15/20 08:00 07/14/20 07/15/20 07/15/20 22:59 06:59 14:59 Intake Total 814.0909 / 2574.0909 1587.5 / 4161.5909 Output Total 3525 / 3525 2600 / 6125 Balance -2710.9091 / -950.9091 -1012.5 / -1963.4091 Weight last 48 hrs Weight 108.862 kg Weight 108.862 kg Weight 116.574 kg Physical Exam Narrative: EXAM NARRATIVE: extubated, comfortable, on liquid diet, hungry heent- ncat, eomi anicteric neck supple lungs ronchi, but improved b/l air movement heart reg abd soft, nt, nd, + bs ext 1+ b/l edema neuro- a,a, o x 2, responsive skin no rashes Urinary Catheter Management^: [place]: Cath Placed During This Visit: yes Reason for Continuing Indwelling Catheter: Accurate Measurement of Urinary Output in Critically Ill Patients Urinary Catheter Date of Insertion: 07/05/20 Urinary Catheter Time of Insertion: 15:50 Data : 07/15/20 03:46 07/15/20 03:46 Micro: Microbiology 07/12/20 08:40 Gram Stain - Final Sputum - Endotracheal Tube Aspirate Sputum Culture - Final 07/13/20 02:30 Blood Culture - Preliminary Blood NEGATIVE TO DATE 07/13/20 02:35 Blood Culture - Preliminary Blood NEGATIVE TO DATE A&P Additional A&P Information 1. Acute kidney injury, good urine output, serum creatinine normalized 2. Hypernatremia, resolved 3. Hypophosphatemia, improved- will likely need k-phos w/ diuretics 4. Hypercapneic respiratory failure, improving 5. Hypokalemia, metabolic alkalosis- from diuretics- replace k, mag, phos as needed will see PRN seen w/ RN- telehealth visit Attestations Medical Necessity Statement*: new drop in EF, electrolyte abnormalities from diuretics- per hospitalist Time Spent in Patient Care: 16 - 35 minutes Coding Level of Care Code Acute Emergency Planning And Response Manager for Liannag Roseann
--- NOTE | 2020-07-15 10:35 | PM.PN ---
Subjective Subjective: Interval history: Patient has been feeling better. He was started on IV Lasix 80mg BID yesterday and has responded well, putting out about 7 L UO over last 24 hours. Overall he is 10+Liter in negative fluid balance. He denies chest pain, says shortness of breath has been improving Vitals/I&O/Wt Last Vital Signs Temp 98.3 F 07/15/20 08:00 Pulse 133 H 07/15/20 08:00 Resp 21 H 07/15/20 08:00 BP 144/72 07/15/20 08:00 Pulse Ox 93 07/15/20 08:00 07/14/20 07/15/20 07/15/20 22:59 06:59 14:59 Intake Total 814.0909 / 2574.0909 1587.5 / 4161.5909 340 / 340 Output Total 3525 / 3525 2600 / 6125 950 / 950 Balance -2710.9091 / -950.9091 -1012.5 / -1963.4091 -610 / -610 Weight last 48 hrs Weight 240 lb Weight 240 lb Weight 257 lb 0.034 oz Physical Exam Narrative: EXAM NARRATIVE: GENERAL: Patient is alert, awake and oriented x3. [] NECK: No jugular vein distension. [] HEENT: No cyanosis. No icterus. No pallor. [] HEART: Regular S1 and S2. No murmur, rub or gallop. [] LUNGS:Wheezing ABDOMEN: Soft, nontender and nondistended. Positive bowel sounds. No guarding, rebound or tenderness. [] CENTRAL NERVOUS SYSTEM: Grossly nonfocal. [] EXTREMITIES: Lower extremities with 1+ edema bilaterally. Pulses palpable in the lower extremities, both dorsalis pedis and posterior tibial. [] Urinary Catheter Management^: [place]: Cath Placed During This Visit: yes Reason for Continuing Indwelling Catheter: Accurate Measurement of Urinary Output in Critically Ill Patients Urinary Catheter Date of Insertion: 07/05/20 Urinary Catheter Time of Insertion: 15:50 Data : 07/15/20 03:46 07/15/20 03:46 Micro: Microbiology 07/14/20 14:00 Urine Culture - Preliminary Urine Catheterized 07/12/20 08:40 Gram Stain - Final Sputum - Endotracheal Tube Aspirate Sputum Culture - Final A&P Assessment and plan (1) Cardiomyopathy: newly diagnosed drop in LV function. -He will require further ischemic w/u once stable. Responding well to IV Lasix. Will decrease to 40mg BID starting tomorrow. We will need to monitor potassium and magnesium closely and replace as needed. Strict I&O's. Follow creatinine closely Status: Acute Qualifiers: Cardiomyopathy type: unspecified Qualified Code(s): I42.9 - Cardiomyopathy, unspecified (2) Acute cor pulmonale: Most likely secondary to COPD; CT scan negative for PE Status: Acute (3) Acute renal failure: Improved. Nephrology is on board Status: Acute Qualifiers: Acute renal failure type: with acute tubular necrosis Qualified Code(s): N17.0 - Acute kidney failure with tubular necrosis (4) Elevated troponin: NSTEMI type II in setting of renal failure and respiratory failure Status: Acute (5) Atrial fibrillation: New onset. Patient will need to be started on full antiacoagulation. 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
--- NOTE | 2020-07-15 13:16 | PC.NURSE ---
Patient requested to lay down. Patient sat on the edge of the bed for over 4 hours with no complaints.
[2020-07-15] MEDS: morphine 4 mg/mL SDV 1 mL 2 MG IVP ×2 (13:20→16:30)
--- NOTE | 2020-07-15 13:55 | PM.PN ---
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 History was obtained from review of records and discussion with ER staff. Patient was apparently found to have oxygen saturation in mid 70s with increasing o2 requirement. Upon arrival to ER he was placed on BiPAP. Initial laboratory work up showed a WBC of 11.1, hemoglobin of 14.0, hematocrit 44.5 and platelet count of 183. Sodium 125, potassium 4.6, chloride 77, bicarb 32, BUN 136 and creatinine of 3.0. Lactic acid of 2.0. AST of 76, ALT of 397 and alkaline phosphatase of 186. Troponin T 474 - > 480.6, Delta troponin T of 6.6. ProBNP of 20,006. INR of 1.65, D-dimer of 2.84. Initial ABG on BiPAP of 7.33, PCO2 of 72.8, Po2 of 89.6, bicarb of 37.9. Patient was not tolerating Bipap due to agitation. He was subsequently intubated on placed on mechanical ventilation. Was noted to have hypotension as well after sedative medications for which he was started on Levophed. He was placed on versed and fentanyl for sedation. Imaging studies included a chest x-ray which showed cardiomegaly, pulmonary vascularity appeared normal with no evidence of pneumothorax or infiltrates. Head CT was also ordered and pending at the time of my eval. In addition to above patient was also given Lasix 40 mg IV x 1 and Levaquin 750 mg IV x 1. Upon admission he was started on broad spectrum antibiotics for suspected R>L cellulitis however patient did have underlying dependent rubra with chronic lymphedema/wounds. Blood cultures were drawn. Due to elevated troponin the trend of which was not indicative of acs he was started on heparin gtt. Also due to elevated d-dimer with inablity to entirely rule out acute PE however given the decrease of hypoxemia with out any chest x-ray findings of pulmonary edema possiblity of acute PE was high. Nephrology was also consulted due to worsening acute renal function. He was given lasix in ER however appeared for me intravascularly dry. Was started on IVF. He continued to require levophed to mantain MAP of greater than 65. 07/06/20 Overnight patient remained intubated on mechanical vent. He was started on broad spectrum antibiotics for suspected R>L cellulitis however patient did have underlying dependent rubra with chronic lymphedema/wounds. Blood cultures were drawn. Due to elevated troponin the trend of which was not indicative of acs he was started on heparin gtt. Also due to elevated d-dimer with inablity to entirely rule out acute PE however given the decrease of hypoxemia with out any chest x-ray findings of pulmonary edema possiblity of acute PE was high. Nephrology was also consulted due to worsening acute renal function. He was given lasix in ER however was started on IV fluids after seen by Nephrology. 07/07/2020 Patient was started on IV Lasix last evening. Noted to have 6 L urine output. Was weaned off her sed and transition to Precedex. Of 2 sets remained stable. Continue to require IV Levophed. 07/08/2020 Overnight no new clinical events. Patient remained on FiO2 of 50%. Noted to have 1400 mL output overnight. In a.m. he was weaned off Precedex. Did not have any fever overnight. Remained on low-dose of Precedex. Lasix were held by nephrology. Was given a dose of diamox. CT chest PE protocol was performed which did not show any evidence of acute embolism. heparin drip was discontinued. 07/09/2020 No clinical events overnight, patient was weaned off sedation and on pressure support this am, still very drowsy. Fio2 was weaned to 45%, PEEP of 5. Was arousable however with stimulation and followed commands. Would fall back asleep. 07/10/2020 No new clinical events overnight. Patient was at MMV. FiO2 of 45%. Peep of 5. Was off sedation. 07/11/2020 Patient was again started on weaning trial earlier at the time of my evaluation. Once sedation was weaned off patient had become tachycardic can became tachypneic. Eventually restarted on sedation and full vent support. Noted to have low-grade fevers overnight. 07/12/20 Patient became agitated, tachypneic on fentanyl and Precedex. He was transitioned to Versed however this morning this was changed back to Precedex. He was also given a one time dose of seth. Patient was arousable and minimally follows commands. 07/13/20 Overnight patient was noted to have multiple fevers. T-max of 103.1?. Also suspected to have a possible adverse reaction to cefepime. Early in a.m. he was however extubated. He had transition to BiPAP and subsequently nasal cannula. Was still remaining confused. addition was started on D5. Sodium trended down to 148. Potassium of 3.0 which was replaced. 07/14 Extubated,no distress 07/15 Patient was noted to have atrial fibrillation with uncontrlled rate otherwise was alert awake with no acute distress. No fever overnight issues. Medications: Reviewed: Yes Medication Review Details: Current Medications Albuterol/Ipratropium (Ipratropium-Albuterol 3 Ml Neb) 3 ml INHALATION Q4H.RESPIRATORY PRN PRN Reason: SHORTNESS OF BREATH Last Admin: 07/10/20 07:58 Dose: 3 ml Documented by: Budesonide (Budesonide 0.5 Mg/2 Ml Neb) 0.5 mg INHALATION BID.RESPIRATORY VIMAL Last Admin: 07/10/20 07:58 Dose: 0.5 mg Documented by: Famotidine (Famotidine 20 Mg/2 Ml Inj) 20 mg IVP Q12H VIMAL Last Admin: 07/10/20 05:07 Dose: 20 mg Documented by: Heparin Sodium (Beef Lung) (Heparin 5,000 Unit/Ml Inj 1 Ml) 5,000 unit SUBCUT Q8H VIMAL Last Admin: 07/10/20 10:22 Dose: 5,000 unit Documented by: Rocuronium [place] 250 mg/ (Sodium Chloride) 250 mls @ 0 mls/hr IV .Q0M VIMAL; Protocol Norepinephrine Bitartrate 4 mg (/ Dextrose) 254 mls @ 0 mls/hr IV .Q0M [facility]IMAL; Protocol Last Titration: 07/09/20 09:14 Dose: 0 mcg/min, 0 mls/hr Documented by: Dexmedetomidine HCl 400 mcg/ (Sodium Chloride) 104 mls @ 0 mls/hr IV .Q0M VIMAL; Protocol Last Titration: 07/10/20 02:22 Dose: 0 mcg/kg/hr, 0 mls/hr Documented by: Imipenem/Cilastatin Sodium 500 (mg/ Sodium Chloride) 100 mls @ 200 mls/hr IV Q6H REPLACED BY [facility]; Protocol Last Infusion: 07/10/20 11:00 Dose: Infused Documented by: Fentanyl 1,000 mcg/ Sodium (Chloride) 100 mls @ 0 mls/hr IV .Q0M REPLACED BY [facility]; Protocol Methylprednisolone Sodium Succinate (Methylprednisolone Sod Succ 40 Mg/Ml Inj) 40 mg IVP Q8H REPLACED BY [facility] Last Admin: 07/10/20 04:43 Dose: 40 mg Documented by: Ondansetron HCl (Ondansetron 2 Mg/Ml Sdv 2 Ml) 4 mg IVP Q6H PRN PRN Reason: NAUSEA AND VOMITING Vitals/I&O/Wt Last Vital Signs Temp 98.3 F 07/15/20 12:00 Pulse 121 H 07/15/20 12:00 Resp 17 07/15/20 13:20 BP 111/79 07/15/20 12:00 Pulse Ox 94 07/15/20 12:00 07/14/20 07/15/20 07/15/20 22:59 06:59 14:59 Intake Total 814.0909 / 2574.0909 1587.5 / 4161.5909 512 / 512 Output Total 3525 / 3525 2600 / 6125 950 / 950 Balance -2710.9091 / -950.9091 -1012.5 / -1963.4091 -438 / -438 Weight last 48 hrs Weight 108.862 kg Weight 108.862 kg Weight 116.574 kg Physical Exam Narrative: EXAM NARRATIVE: General : Extubated on NC, Confused however pleseant HEENT - Grossly unremarkable Chest - Decreased BS bilaterally CVS : NSR ABD ; Non-distended Ext : Bilateral LE with chronic wound, dependent rubra L>R - Improved. Neuro: Moving all extremitis. Urinary Catheter Management^: [place]: Cath Placed During This Visit: yes Reason for Continuing Indwelling Catheter: Accurate Measurement of Urinary Output in Critically Ill Patients Urinary Catheter Date of Insertion: 07/05/20 Urinary Catheter Time of Insertion: 15:50 Data : 07/15/20 03:46 07/15/20 03:46 Micro: Microbiology 07/14/20 14:00 Urine Culture - Preliminary Urine Catheterized 07/12/20 08:40 Gram Stain - Final Sputum - Endotracheal Tube Aspirate Sputum Culture - Final A&P Assessment and plan (1) Acute respiratory failure with hypoxia and hypercapnia: Status: Acute (2) Acute renal failure: Status: Acute Qualifiers: Acute renal failure type: with acute tubular necrosis Qualified Code(s): N17.0 - Acute kidney failure with tubular necrosis (3) Cellulitis: Status: Acute Qualifiers: Site of cellulitis: extremity Site of cellulitis of extremity: lower extremity Laterality: unspecified laterality Qualified Code(s): L03.119 - Cellulitis of unspecified part of limb (4) Chronic respiratory failure: Status: Acute (5) PAD (peripheral artery disease): Status: Acute (6) Mixed hyperlipidemia: Status: Acute (7) Lesion of true vocal cord: Status: Acute (8) Chronic bilateral low back pain: Status: Chronic Qualifiers: Sciatica presence: with sciatica Sciatica laterality: bilateral sciatica Qualified Code(s): M54.42 - Lumbago with sciatica, left side; M54.41 - Lumbago with sciatica, right side; G89.29 - Other chronic pain (9) Lower extremity edema: Status: Chronic (10) Transaminitis: Status: Acute (11) COPD (chronic obstructive pulmonary disease): Status: Chronic Qualifiers: COPD type: unspecified COPD Qualified Code(s): J44.9 - Chronic obstructive pulmonary disease, unspecified (12) Hyponatremia: Status: Acute Acute on chronic hypoxemic hypercapnia respiratory failure - On 6 L of o2 at baseline / Trilogy at home - Intubated on MV on arrival - > Extubated on 07/13 - CTA chest - no PE - Duoneb q6r scheduled - Pulmicort 0.5 mg INH BID - Solu-medrol 40 mg IV q8h - changed to daily - Chest x-ray- Bilateral pulmonary infiltrates. There is increasing infiltrate in the mid right lung zone since the prior study. - Wean o2 as tolerated, Use trilogy qhs - Pulmonary on board and assisting with management - Chest -xray in am 02/Steroid dependent COPD exacerbation - Management as noted above - Bronchodilators Fevers suspected to possible HCAP - WBC improving - Cefepime stopped - Resumed on imipenum - Levaquin 750 mg daily - Zyvox 600 mg iv q12 added - Fever curve improved - Follow up on culture - If improved will transition to oral abx - Chest x-ray in am - Procalcitonin 1.34 Acute systolic HF with cor pulmonale - Cardiomegaly noted on chest x-ray - Improving LE edema - Lasix 40 mg IV BID ordered - held by nephro on 07/07 - S/p Diamox x 4 days - ECHO - EF 45, with severe RV dysfunction - ProBMP - - Net negative balance -900cc - Replace Lytes Non-ST elevation TX - Troponin 474 ->480-> 426 - Cardiology consulted - ECHO noted - no RWM abnormality - Will likely require ischemic work up once stable - Awaiting further recs from cardiology Acute renal failure - resolved. - Creatinine 3.0 > 2.0 - > 1.2 - 1.0 - 0.8 - CK 832 on admit - BMP in am - Nephrology on board - Diuresis on hold Hypernatremia - Na 143- > 150 - 141 - Would d/c IVF - Repeat BMP in Am Hypokalemia, - Replaced KCL 40 MEq x 1 today - Repeat in AM - K. 3.4 - > 3.7 - > 3.0 Hypomag - Mg 1.4 -> 1.7 Elevated D-Dimer - PE ruled out - Discontinue Heparin gtt -heparin 5000 units Q8hr for dvt ppx Elevated LFTs - Improving - Etiology likely due to right heart failure/passive congestion - AST 76-59 - 31 - ALT 397-257 - 126 - Hepatitis panel negative - CT abd/pelvis - stable Additional medical History - Vocal cord malignancy s/p Chemo-radiation - Hx of Colon cancer s/p p.colectomy - Obstructive sleep apnea - Peripheral arterial disease - Polyneuropathy - Gasteroesophageal reflux disease disease - DVT ppx Attestations Medical Necessity Statement*: Continue hospitalization for management of respiratory, infection, and atrial fib Time Spent in Patient Care: Greater than 35 minutes Coding Level of Care Code Acute 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01 COPD (chronic obstructive pulmonary disease) J44.9 COPD type: unspecified COPD Hyponatremia E87.1
--- NOTE | 2020-07-15 15:52 | PC.NURSE ---
Patient's reports patient is sick to his stomach and in alot of pain. When asked previously patient reported no pain. Gave PRN Morphine since patient reported nausea and stated he could not swallow pills at this time. No PRN on chart for nausea. Left message for Doctor to call me back for orders.
[2020-07-15] MEDS: budesonide 0.5 mg/2 mL Neb INHALATION (20:14)
[2020-07-16] VITALS (33 sets, daily range): BP systolic 97–123; BP diastolic 57–96; PULSE 87–130; RESP 15–32; TEMP 36.4–37.1; O2SAT 82–96
[2020-07-16] MEDS: ipratropium-albuterol 3 mL Neb INHALATION ×5 (00:24→20:03)
[2020-07-16] MEDS: morphine 4 mg/mL SDV 1 mL 2 MG IVP (02:52)
--- NOTE | 2020-07-16 03:00 | PC.NURSE ---
Patient requesting something for pain et help with sleep. Called Dr. Whiting et updated on patient status et requests. New orders noted et implemented. Will continue to monitor.
[2020-07-16] MEDS: FUROsemide 10 mg/mL SDV 10mL 80 MG IVP (03:37)
[2020-07-16 04:57] LABS: Basophils # 0.1 10^3/uL (0.0-0.1); Basophils % 0.3 %; Hematocrit 48.4 % (42.0-52.0); Hemoglobin 14.7 g/dL (11.7-16.6); Lymphocytes % 4.2 %; Mean Corpuscular HGB Conc 30.4 g/dL (30.0-36.0); Mean Corpuscular Hemoglobin 27.7 pg (28.0-34.0); Mean Corpuscular Volume 91.1 fL (80-94); Monocytes # 1.3 10^3/uL (0.2-0.9); Monocytes % 5.2 %; Neutrophils # 21.33 10^3/uL (1.8-7.7); Neutrophils % 89.4 %; Nucleated Red Blood Cells % 0 %; Platelet Count 61 10^3/cmm (130-400); Red Blood Count 5.31 10^6/uL (4.1-5.3); Red Cell Distribution Width 14.1 % (12.1-15.1); White Blood Count 23.9 10^3/uL (4.0-10.0)
[2020-07-16] MEDS: linezolid premix 600 MG/300 ML PREMIX 300 MG IV ×2 (05:26→18:43)
[2020-07-16] MEDS: famotidine 20 mg/2 mL INJ IVP (05:27)
[2020-07-16] MEDS: levoFLOXacin 750 mg Tablet PO (05:27)
--- NOTE | 2020-07-16 08:31 | PM.PN ---
Subjective Subjective: Interval history: pleasently confused, good uop. no n/v/c/f/franco/sob/cp Medications: Reviewed: Yes Medication Review Details: Current Medications Acetaminophen (Acetaminophen 325 Mg Tablet) 325 - 650 mg PO Q4H PRN PRN Reason: MILD PAIN OR INCREASE TEMP Last Admin: 07/15/20 05:31 Dose: 650 mg Documented by: Acetaminophen (Acetaminophen 650 Mg Supp) 650 mg OR Q4H PRN PRN Reason: MILD PAIN OR INCREASE TEMP Last Admin: 07/13/20 09:19 Dose: 650 mg Documented by: Albuterol/Ipratropium (Ipratropium-Albuterol 3 Ml Neb) 3 ml INHALATION Q4H.RESPIRATORY PRN PRN Reason: SHORTNESS OF BREATH Last Admin: 07/16/20 04:06 Dose: 3 ml Documented by: Budesonide (Budesonide 0.5 Mg/2 Ml Neb) 0.5 mg INHALATION BID.RESPIRATORY VIMAL Last Admin: 07/15/20 20:14 Dose: 0.5 mg Documented by: Famotidine (Famotidine 20 Mg/2 Ml Inj) 20 mg IVP Q12H [facility] Last Admin: 07/16/20 05:27 Dose: 20 mg Documented by: Fondaparinux (Fondaparinux 2.5 Mg/0.5 Ml Syringe) 2.5 mg SUBCUT DAILY VIMAL Last Admin: 07/15/20 08:21 Dose: 2.5 mg Documented by: Norepinephrine Bitartrate 4 mg (/ Dextrose) 254 mls @ 0 mls/hr IV .Q0M [facility]; Protocol Last Titration: 07/13/20 19:09 Dose: Infused Documented by: Dexmedetomidine HCl 400 mcg/ (Sodium Chloride) 104 mls @ 0 mls/hr IV .Q0M [facility]; Protocol Last Titration: 07/13/20 19:08 Dose: Infused Documented by: Imipenem/Cilastatin Sodium 500 (mg/ Sodium Chloride) 100 mls @ 200 mls/hr IV Q6H [facility]; Protocol Last Infusion: 07/16/20 04:04 Dose: Infused Documented by: Dextrose (D5w) 1,000 mls @ 75 mls/hr IV .[id number] VIMAL Last Admin: 07/15/20 17:29 Dose: 75 mls/hr Documented by: Linezolid (Zyvox Premix) 600 mg in 300 mls @ 300 mls/hr IV Q12H [facility]; Protocol Last Admin: 07/16/20 05:26 Dose: 300 mls/hr Documented by: Levofloxacin (Levofloxacin 750 Mg Tablet) 750 mg PO DAILY@0600 [facility]; Protocol Last Admin: 07/16/20 05:27 Dose: 750 mg Documented by: Methylprednisolone Sodium Succinate (Methylprednisolone Sod Succ 40 Mg/Ml Inj) 40 mg IVP DAILY [facility] Last Admin: 07/16/20 07:53 Dose: 40 mg Documented by: Morphine Sulfate (Morphine 4 Mg/Ml Sdv 1 Ml) 2 mg IVP Q2H PRN PRN Reason: SEVERE PAIN Last Admin: 07/16/20 02:52 Dose: 2 mg Documented by: Oxycodone HCl (Oxycodone 5 Mg Ir Tab/Cap) 15 mg PO Q4H PRN PRN Reason: SEVERE PAIN Potassium Phosphate (Phosphorus 250 Mg Tablet) 250 mg PO TID [facility] Last Admin: 07/15/20 21:20 Dose: 250 mg Documented by: Vitals/I&O/Wt Last Vital Signs Temp 98.7 F 07/16/20 04:00 Pulse 88 07/16/20 06:00 Resp 30 H 07/16/20 06:00 BP 123/75 07/16/20 06:00 Pulse Ox 90 07/16/20 06:00 07/15/20 07/16/20 07/16/20 22:59 06:59 14:59 Intake Total 1740 / 2252 450 / 2702 Output Total 3100 / 4050 2000 / 6050 Balance -1360 / -1798 -1550 / -3348 Weight last 48 hrs Weight 99.926 kg Weight 108.862 kg Weight 108.862 kg Physical Exam Narrative: EXAM NARRATIVE: extubated, comfortable, NARD, pleasantly confused heent- ncat, eomi anicteric neck supple lungs ronchi b/l heart reg abd soft, nt, nd, + bs ext 1+ b/l edema neuro- a,a, o x 1- 2, responsive skin no rashes Urinary Catheter Management^: [place]: Cath Placed During This Visit: yes Reason for Continuing Indwelling Catheter: Acute Urinary Retention or Obstruction Urinary Catheter Date of Insertion: 07/05/20 Urinary Catheter Time of Insertion: 15:50 Data : 07/16/20 04:31 07/16/20 07:38 Micro: Microbiology 07/14/20 14:00 Urine Culture - Preliminary Urine Catheterized A&P Additional A&P Information 1. Acute kidney injury, good urine output, serum creatinine normalized - early am labs- likely an error 2. Hyponatremia from diuretics - now on hold. consider giving ns ivf, free water restrict 3. hypokalemia- replete lytes and monitor 4.met alkalosis- dec diuresis- check abg 5. leukpocytosis per medicine- on levaquin and linezolid seen w/ RN- telehealth visit Attestations Medical Necessity Statement*: per medicine- replace k Time Spent in Patient Care: 16 - 35 minutes Coding Level of Care Code Acute Production Control Scheduler for [facility]
[2020-07-16] MEDS: budesonide 0.5 mg/2 mL Neb INHALATION ×2 (08:44→20:03)
[2020-07-16 08:56] LABS: ABG PCO2 46.1 mmHg (35-45); Arterial Blood Gas Hematocrit 49.8 % (42-52); Blood Gas Allen Test Pos; Blood Gas Sample Type Arterial; Carboxyhemoglobin 1.7 %THgb (0.4-20.1); HCO3 ABG 42.7 mmol/L (22-26); HGB O2 Sat 90.5 % (95-100); Methemoglobin 0.7 % (0.4-1.5); Oxygen Saturation ABG 92.7; Potassium Level - ABG 3.1 mmol/L (3.5-5.0); Total Hemoglobin 16.2 g/dL (14-18)
[2020-07-16 08:57] LABS: ABG PH Result 7.58 (7.35-7.45)
[2020-07-16 08:58] LABS: Alveolar-Arterial Oxygen Gradi 18.7 mmHg (5-10); Blood Gas Operator Identificat BD; Blood Gas Sample Site Radial, left; Oxygen Device NC
--- NOTE | 2020-07-16 09:26 | PC.CHAP ---
Pastoral Care Encounter/Spiritual Assessment Type of Contact [] Declined iron handler visit [] Patient/Family/Request visit [] Outpatient visit [] Follow-up visit [] Physician referral [] Code/Alert [x] Routine visit [] Staff referral [] Actively dying [] Patient sleeping [] Family support [] [] Out of room [] Palliative care [] [] Receiving care in room [] Pre-surgical visit [] Trauma [] Long length of stay [x] ICU visit [] Other: Relational/Emotional Strength [] Patient feels connected with others/family/visitors/staff [] Distress [] Loneliness/isolation [] Abandonment Spirituality of Patient [] Person of Jessica [] Attends Denominational of their Jessica [] Believes in Prayer [] Reads Bible or Buddhist materials [] There are Spiritual issues to be addressed Director Of Database Marketing Interventions x[] Prayer [x] Active listening [x] Non-anxious presence [x] Spiritual/emotional support [] Crisis/trauma care [] Spiritual counseling [] Bereavement support [] Provided bereavement packet [] Provided Bible/devotional materials [] Provided toy/stuffed animal, coloring book to patient or family member [] Provided Communion [] Anointing/Haiku [] Salvation [x] Completed spiritual assessment [] Other: Impact on Illness or Injury [] Angry [] Fearful [] Anxious [] Often cries [] Exhaustion [] Unable to work [] Unable to attend moravian [] Unable to walk/stand [] Unable to read [] Unable to drive [] Unable to eat/drink [] Unable to sleep [] Unable to be with family [] Patient intubated [] Other: Summary patient setting up and having breakfast... so excited to see patient responding.. Time spent with patient 15 min
[2020-07-16] MEDS: potassium chloride oral liq 20 mEq/15 mL UDC 40 MEQ PO (09:42)
[2020-07-16] MEDS: dextrose 5% 1,000 ML 75 ML IV (09:43)
[2020-07-16] MEDS: phosphorus 250 mg Tablet PO ×3 (09:43→21:49)
[2020-07-16] MEDS: metoprolol tartrate 25 mg Tablet PO ×2 (09:44→21:49)
--- NOTE | 2020-07-16 10:23 | PC.NURSE ---
Pt assisted up to chair. Max assist with Staff and gait belt.
[2020-07-16] MEDS: sodium chloride 0.9% 1,000 ML 50 ML IV (11:10)
[2020-07-16 11:15] LABS: Sodium 134 mmol/L (136-145)
[2020-07-16 11:16] LABS: Chloride 86 mmol/L (98-107); Potassium 3.1 mmol/L (3.5-5.1)
[2020-07-16 11:17] LABS: Anion Gap 10.1 (5-19); Blood Urea Nitrogen 23 mg/dL (8-23); Carbon Dioxide 41 mmol/L (22-29)
[2020-07-16 11:18] LABS: Calcium 8.1 mg/dL (8.5-10.5); Glomerular Filtration Rate 213.9 mL/min (90-130); Glucose 117 mg/dL (65-115); Osmolality Calculated 283 mOsm/kg (285-295); Phosphorus 2.7 mg/dL (2.5-4.5)
[2020-07-16 11:19] LABS: Alanine Aminotransferase 28 U/L (0-41); Aspartate Amino Transferase 30 U/L (0-40); Total Bilirubin 2.1 mg/dL (0.15-1.2); Total Protein 5.6 g/dL (6.6-8.7)
[2020-07-16 11:20] LABS: Albumin Level 2.8 g/dL (3.5-5.2); Alkaline Phosphatase 122 IU/L (40-130); Globulin 2.8 g/dL (1.3-4.6)
[2020-07-16 11:21] LABS: Creatine Phosphokinase 43 U/L (39-308)
--- NOTE | 2020-07-16 12:53 | PM.PN ---
Subjective Subjective: Interval history: History and physical was reviewed as well as daily progress notes. Patient reports he is feeling okay today. Denies being significantly short of breath. Intermittently coughs during the interview. Medications: Reviewed: Yes Vitals/I&O/Wt Last Vital Signs Temp 98.7 F 07/16/20 04:00 Pulse 106 H 07/16/20 11:00 Resp 23 H 07/16/20 11:00 BP 107/77 07/16/20 09:00 Pulse Ox 96 07/16/20 11:00 07/15/20 07/16/20 07/16/20 22:59 06:59 14:59 Intake Total 1740 / 2252 1450 / 3702 120 / 120 Output Total 3100 / 4050 2000 / 6050 1000 / 1000 Balance -1360 / -1798 -550 / -2348 -880 / -880 Weight last 48 hrs Weight 99.926 kg Weight 108.862 kg Weight 108.862 kg Physical Exam Narrative: EXAM NARRATIVE: General exam is no apparent distress, intermittently coughing HEENT: Atraumatic, normocephalic. Neck is supple no lymphadenopathy, thyromegaly Cardiovascular irregular, irregular with accelerated rate. No murmur Lungs coarse at both bases with markedly diminished breath sounds Abdomen is soft with positive bowel sounds Extremities no cyanosis clubbing or edema. Urinary Catheter Management^: [place]: Cath Placed During This Visit: yes Reason for Continuing Indwelling Catheter: Acute Urinary Retention or Obstruction Urinary Catheter Date of Insertion: 07/05/20 Urinary Catheter Time of Insertion: 15:50 Data : 07/16/20 04:31 07/16/20 04:14 Micro: Microbiology 07/14/20 14:00 Urine Culture - Final Urine Catheterized A&P Assessment and plan (1) Acute respiratory failure with hypoxia and hypercapnia: He was extubated July 13. Multifactorial etiology secondary to pneumonia, COPD, renal failure Status: Acute (2) Acute renal failure: Resolved. Does have some significant metabolic alkalosis currently. Discussed with nephrology and have started saline at a low rate and will reassess. Status: Acute Qualifiers: Acute renal failure type: with acute tubular necrosis Qualified Code(s): N17.0 - Acute kidney failure with tubular necrosis (3) Cardiomyopathy: Ejection fraction around 30% Add low-dose beta-ayla Status: Acute Qualifiers: Cardiomyopathy type: unspecified Qualified Code(s): I42.9 - Cardiomyopathy, unspecified (4) Atrial fibrillation: Metoprolol added Currently on Arixtra for DVT prophylaxis. There was some concern thrombocytopenia may be secondary to heparin products. Status: Acute (5) Elevated troponin: Type II Status: Acute (6) Left lower lobe pneumonia: Currently on Levaquin, Primaxin, linezolid MRSA PCR not reported secondary to inhibitors present. Status: Acute (7) COPD (chronic obstructive pulmonary disease): Currently on Solu-Medrol 40 mg IV daily Status: Chronic Qualifiers: COPD type: unspecified COPD Qualified Code(s): J44.9 - Chronic obstructive pulmonary disease, unspecified (8) Anemia: Stable Status: Acute (9) Thrombocytopenia: Appears to have stabilized Status: Acute Attestations Medical Necessity Statement*: Needs continued hospital stay for IV antibiotics related to pneumonia. Coding Level of Care Code Acute Business Office Coordinator for [facility] Diagnoses Acute respiratory failure with hypoxia and hypercapnia J96.01; J96.02 Acute renal failure N17.0 Acute renal failure type: with acute tubular necrosis Cardiomyopathy I42.9 Cardiomyopathy type: unspecified Atrial fibrillation I48.91 Elevated troponin R77.8 Left lower lobe pneumonia J18.9 COPD (chronic obstructive pulmonary disease) J44.9 COPD type: unspecified COPD Anemia D64.9 Thrombocytopenia D69.6
--- NOTE | 2020-07-16 12:58 | PM.PN ---
Subjective Subjective: Interval history: wrongly reported creatinine this morning that has been corrected to 0.4 now. started on low dose metoprolol. -intermittent confusion noted. Medications: Reviewed: Yes Vitals/I&O/Wt Last Vital Signs Temp 98.7 F 07/16/20 04:00 Pulse 106 H 07/16/20 11:00 Resp 23 H 07/16/20 11:00 BP 107/77 07/16/20 09:00 Pulse Ox 96 07/16/20 11:00 07/15/20 07/16/20 07/16/20 22:59 06:59 14:59 Intake Total 1740 / 2252 1450 / 3702 120 / 120 Output Total 3100 / 4050 2000 / 6050 1000 / 1000 Balance -1360 / -1798 -550 / -2348 -880 / -880 Weight last 48 hrs Weight 220 lb 4.8 oz Weight 240 lb Weight 240 lb Physical Exam Narrative: EXAM NARRATIVE: GENERAL: Patient is extubated to MD NECK: No jugular vein distension appreciated. HEENT: No cyanosis. No icterus. No pallor. HEART: Regular S1 and S2. No murmur, rub or gallop. LUNGS:coarse bilateral breath sounds ABDOMEN: Soft, nondistended. CENTRAL NERVOUS SYSTEM: sedated EXTREMITIES: Lower extremities trace edema bilaterally. Bilateral leg chronic discoloration Urinary Catheter Management^: [place]: Cath Placed During This Visit: yes Reason for Continuing Indwelling Catheter: Acute Urinary Retention or Obstruction Urinary Catheter Date of Insertion: 07/05/20 Urinary Catheter Time of Insertion: 15:50 Data : 07/16/20 04:31 07/16/20 04:14 Micro: Microbiology 07/14/20 14:00 Urine Culture - Final Urine Catheterized A&P Assessment and plan (1) Cardiomyopathy: newly diagnosed drop in LV function. -He will require further ischemic w/u once stable. -UO 6L, -2.3 L from yesterday and -12L from LOS. -lasix 80 mg IV Q 12h since 07/14/20 and held after this morning. -started on low dose metoprolol tartrate 25 mg BID Status: Acute Qualifiers: Cardiomyopathy type: unspecified Qualified Code(s): I42.9 - Cardiomyopathy, unspecified (2) Acute cor pulmonale: Most likely secondary to COPD; CT scan negative for PE Status: Acute (3) Acute renal failure: Improved. Nephrology is on board Status: Acute Qualifiers: Acute renal failure type: with acute tubular necrosis Qualified Code(s): N17.0 - Acute kidney failure with tubular necrosis (4) Elevated troponin: NSTEMI type II in setting of renal failure and respiratory failure Status: Acute Additional A&P Information Acute on chronic respiratory failure: now extubated Hyponatremia Metabolic alkalosis HTN COPD PAD SCC of vocal cord MANISH Abnormal liver enzymes Hypokalemia Attestations Medical Necessity Statement*: As per primary team Coding Level of Care Code Acute Manuscripts Curator for [facility] Diagnoses Cardiomyopathy I42.9 Cardiomyopathy type: unspecified Acute cor pulmonale I26.09 Acute renal failure N17.0 Acute renal failure type: with acute tubular necrosis Elevated troponin R77.8
[2020-07-16] MEDS: lidocaine 1% 5 ML in potassium chloride premix 100 ML 25 ML IV (13:18)
[2020-07-16] MEDS: fondaparinux 2.5 mg/0.5 mL Syringe SUBCUT (13:39)
--- NOTE | 2020-07-16 13:39 | PC.NURSE ---
med delay, called pharmacy x 2 for medication.
[2020-07-16] MEDS: lanolin oint 7 gm 1 APPLIC TOPICAL (18:12)
[2020-07-16] MEDS: pantoprazole DR 40 mg Tablet PO (18:13)
[2020-07-17] VITALS (31 sets, daily range): BP systolic 84–136; BP diastolic 56–88; PULSE 54–112; RESP 16–29; TEMP 28.3–36.8; O2SAT 88–100; BMI 27.5
[2020-07-17 04:03] LABS: Basophils # 0.1 10^3/uL (0.0-0.1); Basophils % 0.3 %; Hematocrit 46.2 % (42.0-52.0); Hemoglobin 14.2 g/dL (11.7-16.6); Lymphocytes % 3.8 %; Mean Corpuscular HGB Conc 30.7 g/dL (30.0-36.0); Mean Corpuscular Hemoglobin 27.9 pg (28.0-34.0); Mean Corpuscular Volume 90.8 fL (80-94); Mean Platelet Volume 12.4 fL (7.4-10.4); Monocytes # 1.4 10^3/uL (0.2-0.9); Monocytes % 5.2 %; Neutrophils # 23.81 10^3/uL (1.8-7.7); Neutrophils % 89.6 %; Nucleated Red Blood Cells % 0 %; Platelet Count 56 10^3/cmm (130-400); Red Blood Count 5.09 10^6/uL (4.1-5.3); Red Cell Distribution Width 14.1 % (12.1-15.1); White Blood Count 26.6 10^3/uL (4.0-10.0)
[2020-07-17 04:23] LABS: Alanine Aminotransferase 33 U/L (0-41); Albumin Level 2.8 g/dL (3.5-5.2); Alkaline Phosphatase 139 IU/L (40-130); Anion Gap 10.4 (5-19); Aspartate Amino Transferase 36 U/L (0-40); Blood Urea Nitrogen 32 mg/dL (8-23); Calcium 7.9 mg/dL (8.5-10.5); Carbon Dioxide 37 mmol/L (22-29); Chloride 93 mmol/L (98-107); Globulin 2.7 g/dL (1.3-4.6); Glucose 91 mg/dL (65-115); Magnesium 1.3 mg/dL (1.7-2.3); Osmolality Calculated 290 mOsm/kg (285-295); Phosphorus 2.8 mg/dL (2.5-4.5); Potassium 3.4 mmol/L (3.5-5.1); Sodium 137 mmol/L (136-145); Total Bilirubin 2.2 mg/dL (0.15-1.2); Total Protein 5.5 g/dL (6.6-8.7)
[2020-07-17] MEDS: linezolid premix 600 MG/300 ML PREMIX 300 MG IV ×2 (06:29→19:22)
--- NOTE | 2020-07-17 06:56 | XRR_ITS ---
PROCEDURE INFORMATION: Exam: XR Chest, 1 View Exam date and time: 07/17/2020 7:05 AM Age: 70 years old Clinical indication: Condition or disease; Lung condition and disease; Pneumonia; Other: Not specified; Additional info: Follow up pneumonia TECHNIQUE: Imaging protocol: XR of the chest Views: 1 view. COMPARISON: CR XR chest 1V portable [id number] 07/14/2020 5:14 AM FINDINGS: Tubes, catheters and devices: PICC line from the right with the tip projecting over the central venous structures/superior vena cava. Lungs: Alveolar airspace consolidation within the left lower lobe. Left pleural effusion. Severe emphysema Pleural spaces: See Lungs finding. Heart/Mediastinum: Cardiac silhouette is enlarged. Bones/joints: Rib fractures posteriorly on the right XR/XR chest 1V portable [id number] IMPRESSION: Alveolar airspace consolidation within the left lower lobe. Left pleural effusion.
--- NOTE | 2020-07-17 07:50 | P.PN_ITS ---
Subjective Subjective: Interval history: sleepy, dec sob. Medications: Reviewed: Yes Medication Review Details: Current Medications Acetaminophen (Acetaminophen 325 Mg Tablet) 325 - 650 mg PO Q4H PRN PRN Reason: MILD PAIN OR INCREASE TEMP Last Admin: 07/15/20 05:31 Dose: 650 mg Documented by: Acetaminophen (Acetaminophen 650 Mg Supp) 650 mg RI Q4H PRN PRN Reason: MILD PAIN OR INCREASE TEMP Last Admin: 07/13/20 09:19 Dose: 650 mg Documented by: Albuterol/Ipratropium (Ipratropium-Albuterol 3 Ml Neb) 3 ml INHALATION Q4H.RESPIRATORY PRN PRN Reason: SHORTNESS OF BREATH Last Admin: 07/16/20 20:03 Dose: 3 ml Documented by: Budesonide (Budesonide 0.5 Mg/2 Ml Neb) 0.5 mg INHALATION BID.RESPIRATORY VIMAL Last Admin: 07/16/20 20:03 Dose: 0.5 mg Documented by: Fondaparinux (Fondaparinux 2.5 Mg/0.5 Ml Syringe) 2.5 mg SUBCUT DAILY [facility] Last Admin: 07/16/20 13:39 Dose: 2.5 mg Documented by: Imipenem/Cilastatin Sodium 500 (mg/ Sodium Chloride) 100 mls @ 200 mls/hr IV Q6H [facility]; Protocol Last Admin: 07/17/20 03:26 Dose: 200 mls/hr Documented by: Linezolid (Zyvox Premix) 600 mg in 300 mls @ 300 mls/hr IV Q12H [facility]; Protocol Last Admin: 07/17/20 06:29 Dose: 300 mls/hr Documented by: Potassium Chloride/Sodium Chloride (Sodium Chlor 0.9% + Kcl 40 Meq) 40 meq in 1,000 mls @ 60 mls/hr IV .[id number] [facility] Fluconazole (Diflucan Premix) 200 mg in 100 mls @ 100 mls/hr IV Q24H [facility] Lanolin (Lanolin Oint 7 Gm) 1 applic TOPICAL PRN PRN PRN Reason: DRYNESS Last Admin: 07/16/20 18:12 Dose: 1 applic Documented by: Levofloxacin (Levofloxacin 750 Mg Tablet) 750 mg PO DAILY@0600 [facility]; Protocol Last Admin: 07/16/20 05:27 Dose: 750 mg Documented by: Metoprolol Tartrate (Metoprolol Tartrate 25 Mg Tablet) 25 mg PO BID@0900,2100 [facility] Last Admin: 07/16/20 21:49 Dose: 25 mg Documented by: Oxycodone HCl (Oxycodone 5 Mg Ir Tab/Cap) 15 mg PO Q4H PRN PRN Reason: SEVERE PAIN Pantoprazole Sodium (Pantoprazole Dr 40 Mg Tablet) 40 mg PO BID [facility] Last Admin: 07/16/20 18:13 Dose: 40 mg Documented by: Potassium Phosphate (Phosphorus 250 Mg Tablet) 250 mg PO TID [facility] Last Admin: 07/16/20 21:49 Dose: 250 mg Documented by: Vitals/I&O/Wt Last Vital Signs Temp 97.5 F L 07/16/20 20:00 Pulse 90 07/17/20 07:00 Resp 20 H 07/17/20 07:00 BP 136/88 07/17/20 07:00 Pulse Ox 100 07/17/20 07:00 07/16/20 07/17/20 07/17/20 22:59 06:59 14:59 Intake Total 2004 / 5 120 / 2365 Output Total 1650 / 3450 Balance 355 / -1205 120 / -1085 Weight last 48 hrs Weight 104.553 kg Weight 99.926 kg Weight 99.926 kg Physical Exam Narrative: EXAM NARRATIVE: extubated, comfortable, NARD heent- ncat, eomi anicteric neck supple lungs ronchi b/l heart reg abd soft, nt, nd, + bs ext 1+ b/l edema neuro- a,a, o x 1- 2, responsive skin no rashes Urinary Catheter Management^: [place]: Cath Placed During This Visit: yes Reason for Continuing Indwelling Catheter: Accurate Measurement of Urinary Output in Critically Ill Patients Urinary Catheter Date of Insertion: 07/05/20 Urinary Catheter Time of Insertion: 15:50 Data : 07/17/20 03:42 07/17/20 03:42 Micro: Microbiology 07/14/20 14:00 Urine Culture - Final Urine Catheterized A&P Additional A&P Information 1. Acute kidney injury, good urine output, serum creatinine normalized 2. Hyponatremia from diuretics - na impeoved 3. hypokalemia- replete k and mag and monitor 4.met alkalosis- improving on lower dose diuresis and gentle ivf- cont ns ivf today - abg yesterday 7.58/46/59- monitor oxygenation w/ chf and ns ivf. 5. leukpocytosis per medicine- on levaquin and linezolid 6. Cardiomyopathy w/ eF 30%- will d/c ivf soon seen w/ RN- telehealth visit discussed w/ Dr. Valentine yesterday Attestations Medical Necessity Statement*: per hospitalist Time Spent in Patient Care: 16 - 35 minutes Coding Level of Care Code Acute Shake Splitter for [facility]
[2020-07-17] MEDS: ipratropium-albuterol 3 mL Neb INHALATION ×3 (08:02→20:19)
[2020-07-17] MEDS: budesonide 0.5 mg/2 mL Neb INHALATION ×2 (08:02→20:19)
--- NOTE | 2020-07-17 08:06 | PC.NURSE ---
Pt HR dropping to 40-60's. Urine red shelly aid in color. Let Dr. Valentine know. No orders at this time.
[2020-07-17] MEDS: fluconazole premix 200 MG/100 ML PREMIX 100 MG IV (08:13)
[2020-07-17] MEDS: sodium chlor 0.9% + KCl 40 mEq 40 MEQ/1,000 ML BAG 60 MEQ IV (08:13)
--- NOTE | 2020-07-17 09:29 | PC.CHAP ---
Pastoral Care Encounter/Spiritual Assessment Type of Contact [] Declined packing and final assembly supervisor visit [] Patient/Family/Request visit [] Outpatient visit [] Follow-up visit [] Physician referral [] Code/Alert [x] Routine visit [] Staff referral [] Actively dying [x] Patient sleeping [] Family support [] [] Out of room [] Palliative care [] [] Receiving care in room [] Pre-surgical visit [] Trauma [] Long length of stay [x] ICU visit [] Other: Relational/Emotional Strength [] Patient feels connected with others/family/visitors/staff [] Distress [] Loneliness/isolation [] Abandonment Spirituality of Patient [] Person of Jessica [] Attends Bahai of their Jessica [] Believes in Prayer [] Reads Bible or Shinto materials [] There are Spiritual issues to be addressed Preparation Room Worker Interventions [x] Prayer [] Active listening [] Non-anxious presence [] Spiritual/emotional support [] Crisis/trauma care [] Spiritual counseling [] Bereavement support [] Provided bereavement packet [] Provided Bible/devotional materials [] Provided toy/stuffed animal, coloring book to patient or family member [] Provided Communion [] Anointing/[place] [] Salvation [x] Completed spiritual assessment [] Other: Impact on Illness or Injury [] Angry [] Fearful [] Anxious [] Often cries [] Exhaustion [] Unable to work [] Unable to attend christian [] Unable to walk/stand [] Unable to read [] Unable to drive [] Unable to eat/drink [] Unable to sleep [] Unable to be with family [] Patient intubated [] Other: Summary patient resting... hasnt address breakfast yet... wanted just to sleep Time spent with patient
[2020-07-17] MEDS: levoFLOXacin 750 mg Tablet PO (09:38)
[2020-07-17] MEDS: pantoprazole DR 40 mg Tablet PO ×2 (09:38→19:22)
[2020-07-17] MEDS: metoprolol tartrate 25 mg Tablet PO ×2 (09:40→21:36)
[2020-07-17] MEDS: fondaparinux 2.5 mg/0.5 mL Syringe SUBCUT (09:47)
--- NOTE | 2020-07-17 09:50 | PC.NURSE ---
1000 on IS, was pulling 1250 yesterday.
--- NOTE | 2020-07-17 10:26 | PM.PN ---
Subjective Subjective: Interval history: Jaime is confused but can answer a few questions when I visited with him this morning. Medications: Reviewed: Yes Vitals/I&O/Wt Last Vital Signs Temp 97.5 F L 07/16/20 20:00 Pulse 93 07/17/20 10:03 Resp 23 H 07/17/20 10:00 BP 127/86 07/17/20 10:00 Pulse Ox 92 07/17/20 10:03 07/16/20 07/17/20 07/17/20 22:59 06:59 14:59 Intake Total 2004 / 5 120 / 2365 1100 / 1100 Output Total 1650 / 3450 Balance 355 / -1205 120 / -1085 1100 / 1100 Weight last 48 hrs Weight 104.553 kg Weight 99.926 kg Weight 99.926 kg Physical Exam Narrative: EXAM NARRATIVE: General exam is no apparent distress, intermittently coughing HEENT: Atraumatic, normocephalic. Neck is supple no lymphadenopathy, thyromegaly Cardiovascular irregular, irregular with controlled rate. No murmur Lungs coarse at both bases with markedly diminished breath sounds Abdomen is soft with positive bowel sounds Extremities no cyanosis clubbing or edema. Urinary Catheter Management^: [place]: Cath Placed During This Visit: yes Reason for Continuing Indwelling Catheter: Accurate Measurement of Urinary Output in Critically Ill Patients Urinary Catheter Date of Insertion: 07/05/20 Urinary Catheter Time of Insertion: 15:50 Data : 07/17/20 03:42 07/17/20 03:42 Micro: Microbiology 07/14/20 14:00 Urine Culture - Final Urine Catheterized A&P Assessment and plan (1) Acute respiratory failure with hypoxia and hypercapnia: He was extubated July 13. Multifactorial etiology secondary to pneumonia, COPD, renal failure White blood cell count continues to increase Reviewed past history and apparently he is supposed to be using trilogy at home secondary to hypercapnic chronic respiratory failure. We will have him attempt to use BiPAP here. This could be used on discharge to skilled care. With persistently increasing white blood cell count cannot rule out aspiration. Changed to pur?ed diet with nectar thick liquids. Status: Acute (2) Acute renal failure: Resolved. Does have some significant metabolic alkalosis currently. Discussed with nephrology and have started saline at a low rate and will reassess. Metabolic alkalosis has improved. He probably has some of this chronically secondary to his chronic respiratory acidosis. Status: Acute Qualifiers: Acute renal failure type: with acute tubular necrosis Qualified Code(s): N17.0 - Acute kidney failure with tubular necrosis (3) Cardiomyopathy: Ejection fraction around 30% Low-dose beta-ayla added. Will eventually need low-dose ELYSIA inhibitor added if he can tolerate. Status: Acute Qualifiers: Cardiomyopathy type: unspecified Qualified Code(s): I42.9 - Cardiomyopathy, unspecified (4) Atrial fibrillation: Metoprolol added We will hold anticoagulation secondary to hematuria Status: Acute (5) Elevated troponin: Type II Status: Acute (6) Left lower lobe pneumonia: Currently on Levaquin, Primaxin, linezolid MRSA PCR not reported secondary to inhibitors present. Status: Acute (7) COPD (chronic obstructive pulmonary disease): Steroids discontinued at this point. He has some confusion and cannot rule out steroid psychosis. Status: Chronic Qualifiers: COPD type: unspecified COPD Qualified Code(s): J44.9 - Chronic obstructive pulmonary disease, unspecified (8) Anemia: Stable Status: Acute (9) Thrombocytopenia: Appears to have stabilized Status: Acute Additional A&P Information Hypokalemia. Supplemented. Hypomagnesemia. Supplement. Thrush noted on exam. Add fluconazole IV. Cannot rule out esophageal candidiasis. Full code SCDs for DVT prophylaxis. Arixtra will be held secondary to hematuria. Attestations Medical Necessity Statement*: Needs continued hospitalization secondary to pneumonia requiring IV antibiotics. Potential transfer this afternoon depending upon clinical course. If transferred will need to go to stepdown unit and will need one-on-one initially secondary to his confusion. Coding Level of Care Code Acute Manager Client Service for [facility]wd Diagnoses Acute respiratory failure with hypoxia and hypercapnia J96.01; J96.02 Acute renal failure N17.0 Acute renal failure type: with acute tubular necrosis Cardiomyopathy I42.9 Cardiomyopathy type: unspecified Atrial fibrillation I48.91 Elevated troponin R77.8 Left lower lobe pneumonia J18.9 COPD (chronic obstructive pulmonary disease) J44.9 COPD type: unspecified COPD Anemia D64.9 Thrombocytopenia D69.6
--- NOTE | 2020-07-17 10:49 | PC.SLP ---
Patient not seen per nursing request since he has not been able to sleep and has been given some medication to sleep.
--- NOTE | 2020-07-17 17:38 | PM.PN ---
Subjective Subjective: Interval history: - started on low dose metoprolol. no new complaints. -intermittent confusion noted. Medications: Reviewed: Yes Medication Review Details: Current Medications Acetaminophen (Acetaminophen 325 Mg Tablet) 325 - 650 mg PO Q4H PRN PRN Reason: MILD PAIN OR INCREASE TEMP Acetaminophen (Acetaminophen 650 Mg Supp) 650 mg [place] Q4H PRN PRN Reason: MILD PAIN OR INCREASE TEMP Last Admin: 07/13/20 09:19 Dose: 650 mg Documented by: Albuterol/Ipratropium (Ipratropium-Albuterol 3 Ml Neb) 3 ml INHALATION Q4H.RESPIRATORY PRN PRN Reason: SHORTNESS OF BREATH Last Admin: 07/13/20 13:47 Dose: 3 ml Documented by: Budesonide (Budesonide 0.5 Mg/2 Ml Neb) 0.5 mg INHALATION BID.RESPIRATORY VIMAL Last Admin: 07/13/20 07:26 Dose: 0.5 mg Documented by: Famotidine (Famotidine 20 Mg/2 Ml Inj) 20 mg IVP Q12H VIMAL Last Admin: 07/13/20 05:05 Dose: 20 mg Documented by: Fondaparinux (Fondaparinux 2.5 Mg/0.5 Ml Syringe) 2.5 mg SUBCUT DAILY VIMAL Last Admin: 07/13/20 10:01 Dose: 2.5 mg Documented by: Norepinephrine Bitartrate 4 mg (/ Dextrose) 254 mls @ 0 mls/hr IV .Q0M [facility]; Protocol Last Titration: 07/13/20 10:05 Dose: 0 mcg/min, 0 mls/hr Documented by: Dexmedetomidine HCl 400 mcg/ (Sodium Chloride) 104 mls @ 0 mls/hr IV .Q0M [facility]; Protocol Last Titration: 07/13/20 12:15 Dose: 0 mcg/kg/hr, 0 mls/hr Documented by: Imipenem/Cilastatin Sodium 500 (mg/ Sodium Chloride) 100 mls @ 200 mls/hr IV Q6H [facility]; Protocol Last Infusion: 07/13/20 16:31 Dose: Infused Documented by: Dextrose (D5w) 1,000 mls @ 75 mls/hr IV .[id number] VIMAL Last Infusion: 07/13/20 12:47 Dose: 75 mls/hr Documented by: Linezolid (Zyvox Premix) 600 mg in 300 mls @ 300 mls/hr IV Q12H [facility]; Protocol Potassium Chloride (K-Petey) 100 mls @ 25 mls/hr IV ONCE ONE Stop: 07/13/20 21:13 Last Admin: 07/13/20 17:50 Dose: 25 mls/hr Documented by: Levofloxacin (Levofloxacin 750 Mg Tablet) 750 mg PO DAILY@0600 [facility]; Protocol Last Admin: 07/13/20 05:05 Dose: 750 mg Documented by: Methylprednisolone Sodium Succinate (Methylprednisolone Sod Succ 40 Mg/Ml Inj) 40 mg IVP DAILY [facility] Last Admin: 07/13/20 08:57 Dose: 40 mg Documented by: Morphine Sulfate (Morphine 4 Mg/Ml Sdv 1 Ml) 2 mg IVP Q2H PRN PRN Reason: SEVERE PAIN Last Admin: 07/13/20 02:39 Dose: 2 mg Documented by: Potassium Phosphate (Phosphorus 250 Mg Tablet) 250 mg PO BID [facility] Vitals/I&O/Wt Last Vital Signs Temp 83 F L 07/17/20 10:00 Pulse 87 07/17/20 14:38 Resp 20 H 07/17/20 14:30 BP 96/58 07/17/20 13:00 Pulse Ox 91 07/17/20 14:30 07/17/20 07/17/20 07/17/20 06:59 14:59 22:59 Intake Total 120 / 2365 1727 / 1727 Output Total 1100 / 1100 Balance 120 / -1085 627 / 627 Weight last 48 hrs Weight 230 lb 8 oz Weight 220 lb 4.8 oz Weight 220 lb 4.8 oz Physical Exam Narrative: EXAM NARRATIVE: GENERAL: Patient currently on [place] NECK: No jugular vein distension appreciated. HEENT: No cyanosis. No icterus. No pallor. HEART: Regular S1 and S2. No murmur, rub or gallop. LUNGS:coarse bilateral breath sounds ABDOMEN: Soft, non distended. CENTRAL NERVOUS SYSTEM: awake and alert, moving all extremities and answering questions appropriately EXTREMITIES: Lower extremities w/o edema bilaterally. Bilateral leg chronic discoloration Urinary Catheter Management^: [place]: Cath Placed During This Visit: yes Reason for Continuing Indwelling Catheter: Accurate Measurement of Urinary Output in Critically Ill Patients Urinary Catheter Date of Insertion: 07/05/20 Urinary Catheter Time of Insertion: 15:50 Data : 07/17/20 03:42 07/17/20 03:42 A&P Assessment and plan (1) Cardiomyopathy: newly diagnosed drop in LV function. -He will require further ischemic w/u once stable as an outpatient. -started on low dose metoprolol tartrate 25 mg BID. -If labs are ok tomorrow, may add low dose aldactone tomorrow. This was discussed with patient and his , they are agreeable with the plan Status: Acute Qualifiers: Cardiomyopathy type: unspecified Qualified Code(s): I42.9 - Cardiomyopathy, unspecified (2) Acute cor pulmonale: Most likely secondary to COPD; CT scan negative for PE Status: Acute (3) Acute renal failure: Improved. Nephrology is on board Status: Acute Qualifiers: Acute renal failure type: with acute tubular necrosis Qualified Code(s): N17.0 - Acute kidney failure with tubular necrosis (4) Elevated troponin: NSTEMI type II in setting of renal failure and respiratory failure Status: Acute Additional A&P Information Acute on chronic respiratory failure: now extubated to NC Hyponatremia: resolved Metabolic alkalosis HTN COPD PAD SCC of vocal cord MANISH Abnormal liver enzymes Hypokalemia: replaced Thrombocytopenia Attestations Medical Necessity Statement*: As per primary team Time Spent in Patient Care: 16 - 35 minutes (>than 50% of time spent in counselling and/or direct pt care on unit). Coding Level of Care Code Acute Tenter Frame Back Tender for [facility] Diagnoses Cardiomyopathy I42.9 Cardiomyopathy type: unspecified Acute cor pulmonale I26.09 Acute renal failure N17.0 Acute renal failure type: with acute tubular necrosis Elevated troponin R77.8
[2020-07-17] MEDS: sennosides-docusate Tablet 2 TAB PO (19:21)
[2020-07-17] MEDS: zolpidem 5 mg Tablet PO (21:36)
[2020-07-18] VITALS (20 sets, daily range): BP systolic 85–136; BP diastolic 47–87; PULSE 59–92; RESP 16–27; TEMP 36.3–37.1; O2SAT 90–99
[2020-07-18] MEDS: sodium chlor 0.9% + KCl 40 mEq 40 MEQ/1,000 ML BAG 60 MEQ IV (01:37)
[2020-07-18 03:57] LABS: Basophils # 0.1 10^3/uL (0.0-0.1); Basophils % 0.3 %; Eosinophils % 0.1 %; Hematocrit 45.2 % (42.0-52.0); Hemoglobin 13.4 g/dL (11.7-16.6); Lymphocytes # 1.1 10^3/uL (0.8-4.8); Lymphocytes % 4.8 %; Mean Corpuscular HGB Conc 29.6 g/dL (30.0-36.0); Mean Corpuscular Hemoglobin 27.8 pg (28.0-34.0); Mean Corpuscular Volume 93.8 fL (80-94); Monocytes % 4.2 %; Neutrophils # 20.49 10^3/uL (1.8-7.7); Neutrophils % 89.6 %; Nucleated Red Blood Cells % 0 %; Platelet Count 42 10^3/cmm (130-400); Red Blood Count 4.82 10^6/uL (4.1-5.3); Red Cell Distribution Width 14.2 % (12.1-15.1); White Blood Count 22.9 10^3/uL (4.0-10.0)
[2020-07-18 04:03] LABS: Alanine Aminotransferase 25 U/L (0-41); Albumin Level 2.7 g/dL (3.5-5.2); Alkaline Phosphatase 129 IU/L (40-130); Anion Gap 8.3 (5-19); Aspartate Amino Transferase 21 U/L (0-40); Blood Urea Nitrogen 26 mg/dL (8-23); Calcium 7.7 mg/dL (8.5-10.5); Carbon Dioxide 37 mmol/L (22-29); Chloride 97 mmol/L (98-107); Globulin 2.3 g/dL (1.3-4.6); Glomerular Filtration Rate 165.4 mL/min (90-130); Glucose 79 mg/dL (65-115); Magnesium 1.4 mg/dL (1.7-2.3); Osmolality Calculated 292 mOsm/kg (285-295); Phosphorus 2.4 mg/dL (2.5-4.5); Potassium 3.3 mmol/L (3.5-5.1); Sodium 139 mmol/L (136-145); Total Bilirubin 1.6 mg/dL (0.15-1.2)
[2020-07-18 05:52] LABS: Slide Review Slide Review Perform
[2020-07-18] MEDS: linezolid premix 600 MG/300 ML PREMIX 300 MG IV (06:13)
[2020-07-18] MEDS: fluconazole premix 200 MG/100 ML PREMIX 100 MG IV (07:11)
--- NOTE | 2020-07-18 07:20 | PC.NURSE ---
Pt agitated last part of shift. Attempted to deescalate. Phoned after 0700 with no answer.
[2020-07-18] MEDS: budesonide 0.5 mg/2 mL Neb INHALATION ×2 (08:01→20:40)
[2020-07-18] MEDS: ipratropium-albuterol 3 mL Neb INHALATION ×2 (08:01→20:40)
[2020-07-18] MEDS: pantoprazole DR 40 mg Tablet PO (08:23)
[2020-07-18] MEDS: sennosides-docusate Tablet 2 TAB PO ×2 (08:23→17:21)
[2020-07-18] MEDS: metoprolol tartrate 25 mg Tablet PO ×2 (08:34→21:49)
--- NOTE | 2020-07-18 09:21 | PC.CHAP ---
Pastoral Care Encounter/Spiritual Assessment Type of Contact [] Declined audit manager visit [] Patient/Family/Request visit [] Outpatient visit [] Follow-up visit [] Physician referral [] Code/Alert [x] Routine visit [] Staff referral [] Actively dying [] Patient sleeping [] Family support [] [] Out of room [] Palliative care [] [] Receiving care in room [] Pre-surgical visit [] Trauma [] Long length of stay [x] ICU visit [] Other: Relational/Emotional Strength [] Patient feels connected with others/family/visitors/staff [] Distress [] Loneliness/isolation [] Abandonment Spirituality of Patient [] Person of Jessica [] Attends Latter-Day of their Jessica [] Believes in Prayer [] Reads Bible or Hindu materials [] There are Spiritual issues to be addressed Stay Cutter Interventions [x] Prayer [] Active listening [] Non-anxious presence [] Spiritual/emotional support [] Crisis/trauma care [] Spiritual counseling [] Bereavement support [] Provided bereavement packet [] Provided Bible/devotional materials [] Provided toy/stuffed animal, coloring book to patient or family member [] Provided Communion [] Anointing/[place] [] Salvation [x] Completed spiritual assessment [] Other: Impact on Illness or Injury [] Angry [] Fearful [] Anxious [] Often cries [] Exhaustion [] Unable to work [] Unable to attend episcopalian [] Unable to walk/stand [] Unable to read [] Unable to drive [] Unable to eat/drink [] Unable to sleep [] Unable to be with family [] Patient intubated [] Other: Summary audit manager continuing to pray for healing and strength... receiving meds during visit.. patient goes in and out of sleep Time spent with patient 5 min
[2020-07-18] MEDS: fondaparinux 2.5 mg/0.5 mL Syringe SUBCUT (10:55)
[2020-07-18] MEDS: oxyCODONE 5 mg IR Tab/Cap 15 MG PO (10:56)
--- NOTE | 2020-07-18 11:28 | P.PN_ITS ---
Subjective Subjective: Interval history: Jaime reports he is feeling okay. Breathing is not a big issue. Wonders if he can get his catheter out. Medications: Reviewed: Yes Vitals/I&O/Wt Last Vital Signs Temp 98.2 F 07/18/20 10:00 Pulse 67 07/18/20 10:00 Resp 18 07/18/20 10:56 BP 90/61 07/18/20 10:00 Pulse Ox 93 07/18/20 10:00 07/17/20 07/18/20 07/18/20 22:59 06:59 14:59 Intake Total 520 / 2247 1220 / 3467 1052 / 1052 Output Total 650 / 1750 650 / 650 Balance 520 / 1147 570 / 1717 402 / 402 Weight last 48 hrs Weight 107.592 kg Weight 104.553 kg Weight 99.926 kg Physical Exam Narrative: EXAM NARRATIVE: General exam is no apparent distress, intermittently coughing HEENT: Atraumatic, normocephalic. Neck is supple no lymphadenopathy, thyromegaly Cardiovascular irregular, irregular with controlled rate. No murmur Lungs coarse at both bases with markedly diminished breath sounds Abdomen is soft with positive bowel sounds Extremities no cyanosis clubbing or edema. Urinary Catheter Management^: [place]: Cath Placed During This Visit: yes, but has since been removed by the nurse Reason for Continuing Indwelling Catheter: Decision to DC Catheter Urinary Catheter Date of Insertion: 07/05/20 Urinary Catheter Time of Insertion: 15:50 Date Urinary Catheter Removed: 07/18/20 Time Urinary Catheter Discontinued: 10:19 Data : 07/18/20 03:20 07/18/20 03:20 Micro: Microbiology 07/13/20 02:35 Blood Culture - Final Blood NO GROWTH AFTER 5 DAYS 07/13/20 02:30 Blood Culture - Final Blood NO GROWTH AFTER 5 DAYS A&P Assessment and plan (1) Acute respiratory failure with hypoxia and hypercapnia: He was extubated July 13. Multifactorial etiology secondary to pneumonia, COPD, renal failure White blood cell count has improved today. No evidence of diarrhea suggesting C. difficile colitis. Reviewed past history and apparently he is supposed to be using trilogy at home secondary to hypercapnic chronic respiratory failure. Attempting to have him use BiPAP here. This could be used on discharge to skilled care. With persistently increasing white blood cell count cannot rule out aspiration. Diet changed to pur?ed diet with nectar thick liquids. Family gives a history of aspiration and coughing at home. Status: Acute (2) Acute renal failure: Resolved. Does have some significant metabolic alkalosis currently. Discussed with nephrology and have started saline at a low rate and will reassess. Metabolic alkalosis has improved. He probably has some of this chronically secondary to his chronic respiratory acidosis.. Saline has since been discontinued Status: Acute Qualifiers: Acute renal failure type: with acute tubular necrosis Qualified Code(s): N17.0 - Acute kidney failure with tubular necrosis (3) Cardiomyopathy: Ejection fraction around 30% Low-dose beta-ayla added. Will eventually need low-dose ELYSIA inhibitor added if he can tolerate. Status: Acute Qualifiers: Cardiomyopathy type: unspecified Qualified Code(s): I42.9 - Cardiomyopathy, unspecified (4) Atrial fibrillation: Metoprolol added Status: Acute (5) Elevated troponin: Type II Status: Acute (6) Left lower lobe pneumonia: Currently on Levaquin, Primaxin, linezolid MRSA PCR not reported secondary to inhibitors present. With clinical improvement linezolid will be discontinued today Status: Acute (7) COPD (chronic obstructive pulmonary disease): Steroids discontinued at this point. He has some confusion and cannot rule out steroid psychosis. Status: Chronic Qualifiers: COPD type: unspecified COPD Qualified Code(s): J44.9 - Chronic obstructive pulmonary disease, unspecified (8) Anemia: Stable Status: Acute (9) Thrombocytopenia: Slightly lower counts today. There was a consideration for heparin- induced thrombocytopenia. I will order a heparin antibody testing so this would be available for future hospitalizations. As his hematuria has significantly improved we will discontinue his catheter and restart his Arixtra. Protonix changed to Pepcid in case this is playing a role in thrombocytopenia. Status: Acute Additional A&P Information Hypokalemia. Supplemented by nephrology Hypomagnesemia. Supplement. Thrush noted on exam. Fluconazole added yesterday. Full code SCDs for DVT prophylaxis. Currently on Arixtra. Attestations Medical Necessity Statement*: Needs continued hospitalization for IV antibiotics secondary to pneumonia Coding Level of Care Code Acute Pest Controller Assistant for [facility] Diagnoses Acute respiratory failure with hypoxia and hypercapnia J96.01; J96.02 Acute renal failure N17.0 Acute renal failure type: with acute tubular necrosis Cardiomyopathy I42.9 Cardiomyopathy type: unspecified Atrial fibrillation I48.91 Elevated troponin R77.8 Left lower lobe pneumonia J18.9 COPD (chronic obstructive pulmonary disease) J44.9 COPD type: unspecified COPD Anemia D64.9 Thrombocytopenia D69.6
[2020-07-18] MEDS: predniSONE 5 mg Tablet PO ×2 (11:55→17:22)
--- NOTE | 2020-07-18 16:10 | P.PN_ITS ---
Subjective Subjective: Interval history: - no new complaints. Transferred out of unit. Medications: Reviewed: Yes Medication Review Details: Current Medications Acetaminophen (Acetaminophen 325 Mg Tablet) 325 - 650 mg PO Q4H PRN PRN Reason: MILD PAIN OR INCREASE TEMP Acetaminophen (Acetaminophen 650 Mg Supp) 650 mg [place] Q4H PRN PRN Reason: MILD PAIN OR INCREASE TEMP Last Admin: 07/13/20 09:19 Dose: 650 mg Documented by: Albuterol/Ipratropium (Ipratropium-Albuterol 3 Ml Neb) 3 ml INHALATION Q4H.RESPIRATORY PRN PRN Reason: SHORTNESS OF BREATH Last Admin: 07/13/20 13:47 Dose: 3 ml Documented by: Budesonide (Budesonide 0.5 Mg/2 Ml Neb) 0.5 mg INHALATION BID.RESPIRATORY VIMAL Last Admin: 07/13/20 07:26 Dose: 0.5 mg Documented by: Famotidine (Famotidine 20 Mg/2 Ml Inj) 20 mg IVP Q12H [facility] Last Admin: 07/13/20 05:05 Dose: 20 mg Documented by: Fondaparinux (Fondaparinux 2.5 Mg/0.5 Ml Syringe) 2.5 mg SUBCUT DAILY [facility]IMAL Last Admin: 07/13/20 10:01 Dose: 2.5 mg Documented by: Norepinephrine Bitartrate 4 mg (/ Dextrose) 254 mls @ 0 mls/hr IV .Q0M [facility]; Protocol Last Titration: 07/13/20 10:05 Dose: 0 mcg/min, 0 mls/hr Documented by: Dexmedetomidine HCl 400 mcg/ (Sodium Chloride) 104 mls @ 0 mls/hr IV .Q0M [facility]; Protocol Last Titration: 07/13/20 12:15 Dose: 0 mcg/kg/hr, 0 mls/hr Documented by: Imipenem/Cilastatin Sodium 500 (mg/ Sodium Chloride) 100 mls @ 200 mls/hr IV Q6H [facility]; Protocol Last Infusion: 07/13/20 16:31 Dose: Infused Documented by: Dextrose (D5w) 1,000 mls @ 75 mls/hr IV .[id number] [facility] Last Infusion: 07/13/20 12:47 Dose: 75 mls/hr Documented by: Linezolid (Zyvox Premix) 600 mg in 300 mls @ 300 mls/hr IV Q12H [facility]; Protocol Potassium Chloride (K-Petey) 100 mls @ 25 mls/hr IV ONCE ONE Stop: 07/13/20 21:13 Last Admin: 07/13/20 17:50 Dose: 25 mls/hr Documented by: Levofloxacin (Levofloxacin 750 Mg Tablet) 750 mg PO DAILY@0600 [facility]; Protocol Last Admin: 07/13/20 05:05 Dose: 750 mg Documented by: Methylprednisolone Sodium Succinate (Methylprednisolone Sod Succ 40 Mg/Ml Inj) 40 mg IVP DAILY [facility] Last Admin: 07/13/20 08:57 Dose: 40 mg Documented by: Morphine Sulfate (Morphine 4 Mg/Ml Sdv 1 Ml) 2 mg IVP Q2H PRN PRN Reason: SEVERE PAIN Last Admin: 07/13/20 02:39 Dose: 2 mg Documented by: Potassium Phosphate (Phosphorus 250 Mg Tablet) 250 mg PO BID [facility] Vitals/I&O/Wt Last Vital Signs Temp 98.2 F 07/18/20 12:00 Pulse 67 07/18/20 10:00 Resp 16 07/18/20 12:00 BP 92/47 07/18/20 12:00 Pulse Ox 97 07/18/20 12:00 07/18/20 07/18/20 07/18/20 06:59 14:59 22:59 Intake Total 1220 / 3467 1172 / 1172 100 / 1272 Output Total 650 / 1750 650 / 650 Balance 570 / 1717 522 / 522 100 / 622 Weight last 48 hrs Weight 237 lb 3.2 oz Weight 230 lb 8 oz Weight 220 lb 4.8 oz Physical Exam Narrative: EXAM NARRATIVE: GENERAL: Patient currently on NC NECK: No jugular vein distension appreciated. HEENT: No cyanosis. No icterus. No pallor. HEART: Regular S1 and S2. No murmur, rub or gallop. LUNGS:coarse bilateral breath sounds ABDOMEN: Soft, non distended. CENTRAL NERVOUS SYSTEM: awake and alert, moving all extremities and answering questions appropriately EXTREMITIES: Lower extremities w/o edema bilaterally. Bilateral leg chronic discoloration Urinary Catheter Management^: [place]: Cath Placed During This Visit: yes, but has since been removed by the nurse Reason for Continuing Indwelling Catheter: Decision to DC Catheter Urinary Catheter Date of Insertion: 07/05/20 Urinary Catheter Time of Insertion: 15:50 Date Urinary Catheter Removed: 07/18/20 Time Urinary Catheter Discontinued: 10:19 Data : 07/18/20 03:20 07/18/20 03:20 Micro: Microbiology 07/13/20 02:35 Blood Culture - Final Blood NO GROWTH AFTER 5 DAYS 07/13/20 02:30 Blood Culture - Final Blood NO GROWTH AFTER 5 DAYS A&P Assessment and plan (1) Cardiomyopathy: newly diagnosed drop in LV function. -He will require further ischemic w/u once stable as an outpatient. -currently on low dose metoprolol tartrate 25 mg BID. -may add low dose aldactone. This was discussed with patient and his , they are agreeable with the plan Status: Acute Qualifiers: Cardiomyopathy type: unspecified Qualified Code(s): I42.9 - Cardiomyopathy, unspecified (2) Acute cor pulmonale: Most likely secondary to COPD; CT scan negative for PE Status: Acute (3) Acute renal failure: Improved. Nephrology is on board Status: Acute Qualifiers: Acute renal failure type: with acute tubular necrosis Qualified Code(s): N17.0 - Acute kidney failure with tubular necrosis (4) Elevated troponin: NSTEMI type II in setting of renal failure and respiratory failure Status: Acute Additional A&P Information Acute on chronic respiratory failure: now extubated to NC Hyponatremia: resolved Metabolic alkalosis HTN COPD PAD SCC of vocal cord MANISH Hypomagnesemia: replaced. Hypokalemia: replaced Thrombocytopenia Attestations Medical Necessity Statement*: As per primary team Time Spent in Patient Care: 16 - 35 minutes (>than 50% of time spent in counselling and/or direct pt care on unit) . Coding Level of Care Code Acute Database Consultant for [facility] Fwd Diagnoses Cardiomyopathy I42.9 Cardiomyopathy type: unspecified Acute cor pulmonale I26.09 Acute renal failure N17.0 Acute renal failure type: with acute tubular necrosis Elevated troponin R77.8
[2020-07-18] MEDS: famotidine 20 mg Tablet PO (17:22)
[2020-07-19] VITALS (12 sets, daily range): BP systolic 90–118; BP diastolic 50–77; PULSE 65–93; RESP 16–18; TEMP 36.4–36.9; O2SAT 88–99
[2020-07-19 06:47] LABS: Hemoglobin 13.2 g/dL (11.7-16.6); Mean Corpuscular HGB Conc 29.3 g/dL (30.0-36.0); Mean Corpuscular Hemoglobin 27.4 pg (28.0-34.0); Mean Corpuscular Volume 93.6 fL (80-94); Mean Platelet Volume 13.5 fL (7.4-10.4); Platelet Count 50 10^3/cmm (130-400); Red Blood Count 4.81 10^6/uL (4.1-5.3); Red Cell Distribution Width 14.1 % (12.1-15.1); White Blood Count 16.5 10^3/uL (4.0-10.0)
[2020-07-19] MEDS: levoFLOXacin 750 mg Tablet PO (06:51)
[2020-07-19 07:20] LABS: Alanine Aminotransferase 21 U/L (0-41); Albumin Level 2.7 g/dL (3.5-5.2); Alkaline Phosphatase 127 IU/L (40-130); Anion Gap 7.8 (5-19); Aspartate Amino Transferase 16 U/L (0-40); Blood Urea Nitrogen 19 mg/dL (8-23); Calcium 8.2 mg/dL (8.5-10.5); Carbon Dioxide 37 mmol/L (22-29); Chloride 98 mmol/L (98-107); Globulin 2.8 g/dL (1.3-4.6); Glomerular Filtration Rate 213.9 mL/min (90-130); Glucose 82 mg/dL (65-115); Magnesium 1.6 mg/dL (1.7-2.3); Osmolality Calculated 291 mOsm/kg (285-295); Sodium 140 mmol/L (136-145); Total Bilirubin 1.6 mg/dL (0.15-1.2); Total Protein 5.5 g/dL (6.6-8.7)
[2020-07-19 07:22] LABS: Potassium 2.8 mmol/L (3.5-5.1)
[2020-07-19 07:32] LABS: Absolute Eosinophils 0.1 10^3/cmm (0.0-0.7); Absolute Segmented Neutrophil 13.5 10/cmm (1.6-7.1); Band Neutrophils Absolute 0.2 10^3/cmm (0.0-1.2); Eosinophils 1 %; Lymphocytes 12 %; Monocytes Absolute 0.7 10^3/cmm (0.1-0.6); Segmented Neutrophils 82 %; Total Cells Counted 100 (0-100)
[2020-07-19 07:33] LABS: Absolute Neutrophil 13.7 10^3/cmm (1.4-6.5); Hypochromasia 1+; Platelet Estimate Decreased (Normal); Poikilocytosis 1+
[2020-07-19] MEDS: ipratropium-albuterol 3 mL Neb INHALATION (07:36)
[2020-07-19] MEDS: budesonide 0.5 mg/2 mL Neb INHALATION (07:36)
--- NOTE | 2020-07-19 07:45 | PC.NURSE ---
URINE: IN PREVIOUS NOTES IT IS SEEN THAT THE PATIENT HAS A HISTORY OF BLOOD IN HIS URINE. WHEN THE PATIENT VOIDS, THE URINE IS DARK RED/BROWN. PATIENT DENIES ANY BURNING WITH URINATION.
[2020-07-19] MEDS: fluconazole premix 200 MG/100 ML PREMIX 100 MG IV (09:52)
[2020-07-19] MEDS: potassium chloride ER 20 mEq Tablet 40 MEQ PO (09:53)
[2020-07-19] MEDS: metoprolol tartrate 25 mg Tablet PO ×2 (09:53→20:38)
[2020-07-19] MEDS: famotidine 20 mg Tablet PO ×2 (09:53→17:17)
[2020-07-19] MEDS: sennosides-docusate Tablet 2 TAB PO ×2 (09:53→17:17)
[2020-07-19] MEDS: fondaparinux 2.5 mg/0.5 mL Syringe SUBCUT (09:54)
[2020-07-19] MEDS: predniSONE 5 mg Tablet PO ×2 (09:54→17:17)
[2020-07-19] MEDS: oxyCODONE 5 mg IR Tab/Cap 15 MG PO ×2 (09:59→17:15)
--- NOTE | 2020-07-19 10:07 | P.PN_ITS ---
Subjective Subjective: Interval history: Jaime reports he is feeling better and getting stronger. He reports his breathing seems okay. Pain is under control. Medications: Reviewed: Yes Vitals/I&O/Wt Last Vital Signs Temp 97.8 F 07/19/20 07:17 Pulse 70 07/19/20 07:40 Resp 18 07/19/20 09:59 BP 113/75 07/19/20 07:17 Pulse Ox 92 07/19/20 07:39 07/18/20 07/19/20 07/19/20 22:59 06:59 14:59 Intake Total 200 / 1372 100 / 100 Output Total 100 / 750 200 / 950 600 / 600 Balance 100 / 622 -200 / 422 -500 / -500 Weight last 48 hrs Weight 111.402 kg Weight 107.592 kg Physical Exam Narrative: EXAM NARRATIVE: General exam is no apparent distress Neck is supple no lymphadenopathy, thyromegaly Cardiovascular irregular, irregular with controlled rate. No murmur Lungs coarse at both bases. Occasional wheeze Abdomen is soft with positive bowel sounds Extremities no cyanosis clubbing. Trace edema. Urinary Catheter Management^: [place]: Cath Placed During This Visit: yes, but has since been removed by the nurse Reason for Continuing Indwelling Catheter: Decision to DC Catheter Urinary Catheter Date of Insertion: 07/05/20 Urinary Catheter Time of Insertion: 15:50 Date Urinary Catheter Removed: 07/18/20 Time Urinary Catheter Discontinued: 10:19 Data : 07/19/20 05:34 07/19/20 05:34 A&P Assessment and plan (1) Acute respiratory failure with hypoxia and hypercapnia: He was extubated July 13. Multifactorial etiology secondary to pneumonia, COPD, renal failure White blood cell count has improved today. No evidence of diarrhea suggesting C. difficile colitis. Reviewed past history and apparently he is supposed to be using trilogy at home secondary to hypercapnic chronic respiratory failure. Attempting to have him use BiPAP here. This could be used on discharge to skilled care. With persistently increasing white blood cell count cannot rule out aspiration. Diet changed to pur?ed diet with nectar thick liquids. White blood cell count is decreasing. Family gives a history of aspiration and coughing at home. Overall he appears to be improving significantly. Status: Acute (2) Acute renal failure: Resolved. Status: Acute Qualifiers: Acute renal failure type: with acute tubular necrosis Qualified Code(s): N17.0 - Acute kidney failure with tubular necrosis (3) Cardiomyopathy: Ejection fraction around 30% Low-dose beta-ayla added, and tachycardia improved. EKGs during hospital stay demonstrated sinus rhythm. I was concerned during 1 point during his ICU stay that he might have multifocal atrial tachycardia. Check EKG today. Add low-dose ARB. Add low-dose ARB secondary to cardiomyopathy. Check TSH. Status: Acute Qualifiers: Cardiomyopathy type: unspecified Qualified Code(s): I42.9 - Cardiomyopathy, unspecified (4) Elevated troponin: Type II Status: Acute (5) Left lower lobe pneumonia: Currently on Levaquin, Primaxin MRSA PCR not reported secondary to inhibitors present. Discontinue Levaquin today Chest x-ray tomorrow Status: Acute (6) COPD (chronic obstructive pulmonary disease): On chronic steroids. Currently on 5 mg twice daily. Status: Chronic Qualifiers: COPD type: unspecified COPD Qualified Code(s): J44.9 - Chronic o bstructive pulmonary disease, unspecified (7) Anemia: Stable Status: Acute (8) Thrombocytopenia: Slightly improved today. There was a consideration for heparin-induced thrombocytopenia. I will order a heparin antibody testing so this would be available for future hospitalizations. As his hematuria has significantly improved we will discontinue his catheter and restart his Arixtra. Protonix changed to Pepcid in case this is playing a role in thrombocytopenia. Status: Acute Additional A&P Information Hypokalemia. Supplement Hypomagnesemia. Supplement. Thrush noted on exam. Fluconazole added yesterday. Full code SCDs for DVT prophylaxis. Currently on Arixtra. Possible discharge to correction tomorrow if remains stable. Attestations Medical Necessity Statement*: Needs continued hospitalization for correction of electrolyte abnormalities, continue treatment of pneumonia pending discharge to skilled care. Coding Level of Care Code Acute Sheet Metal Worker Apprentice for [facility] Fwd Diagnoses Acute respiratory failure with hypoxia and hypercapnia J96.01; J96.02 Acute renal failure N17.0 Acute renal failure type: with acute tubular necrosis Cardiomyopathy I42.9 Cardiomyopathy type: unspecified Elevated troponin R77.8 Left lower lobe pneumonia J18.9 COPD (chronic obstructive pulmonary disease) J44.9 COPD type: unspecified COPD Anemia D64.9 Thrombocytopenia D69.6
--- NOTE | 2020-07-19 10:17 | XR_ITS ---
WS: [id number] Portable AP upright chest, 07/19/2020 Clinical Data: follow up pneumonia Comparison: Portable chest, 07/17/2020. Findings: The left lower lobe patchy opacity has diminished. There is a right pleural effusion and ri ght lower lobe patchy opacity which remains the same. The heart is enlarged. The aortic arch is tortu ous. The right PICC line remains in same position. There are old right rib fractures. Monitor leads a re on the chest wall. XR/XR chest 1V portable [id number] Impression: 1. Arthritic clearing of left lower lobe patchy opacity. 2. No change in minimal right lung opacity and right pleural effusion. 3. Atherosclerosis and cardiomegaly.
[2020-07-19] MEDS: magnesium sulfate premix 2 GM/50 ML PIGGYBACK IV (10:56)
[2020-07-19] MEDS: lidocaine 1% 5 ML in potassium chloride premix 100 ML 25 ML IV ×2 (10:56→15:16)
[2020-07-19 12:18] LABS: Thyroid Stimulating Hormone 2.86 uIU/mL (0.27-4.20)
--- NOTE | 2020-07-19 12:59 | PC.OT ---
OT TREATMENT ATTEMPTED. PATIENT IS VERY CONFUSED TODAY. ASKED ME TO HELP HIM HE STATES THAT MY AND KIDS HAVE BEEN KIDNAPPED . I TRIED TO REASSURE HIM THAT ALL WAS FINE AND THAT HE NEEDED TO STAY IN THE HOSPITAL AT THIS TIME. HE DOES NOT THINK THAT HE IS CURRENTLY IN THE HOSPITAL. I SPOKE WITH THE SENIOR CISCO NETWORK ENGINEER AND SHE SAID THAT HIS CALLED 20-30 MINUTES AGO AND SPOKE WITH THE NURSE REGARDING HER . SHE TRIED AGAIN TO CALL SO THAT THE PATIENT COULD SPEAK WITH HIS , NO ANSWER. I TOLD THE PATIENT THIS INFORMATION. HE IS NOT EASILY REDIRECTED. PATIENT IS LEFT IN CARE OF ROUND KILN DRAWER.
[2020-07-19] MEDS: LORazepam 2 mg/mL INJ 1 mL 0.5 MG IVP (14:12)
--- NOTE | 2020-07-19 14:51 | PC.NURSE ---
pt has refused all other vitals. Being very combative when trying. CHUCKY Blair was in there.
[2020-07-19] MEDS: FUROsemide 40 mg Tablet PO (17:17)
--- NOTE | 2020-07-19 19:54 | PC.NURSE ---
pt became agitated this afternoon. he was upset his was not there. he was upset that display card writer would not get a wheel chair and take him outside to smoke pt was trying to move the chair he was sitting in. display card writer tried calling to talk to pt but there was no answer. Dr Valentine was notified orders for Ativan 0.5 one time dose. when arrived pt was angry at her for not being there sooner. informed display card writer pt hasn't smoked in years. she also said he gets this way when he doesn't sleep. she advised that he takes his nightly dose of Ambien. display card writer notified Dr. Valentine and ordered it for tonight.
[2020-07-20] VITALS (14 sets, daily range): BP systolic 94–143; BP diastolic 58–78; PULSE 68–85; RESP 16–20; TEMP 36.4–36.9; O2SAT 90–100
[2020-07-20] MEDS: LORazepam 2 mg/mL INJ 1 mL 0.5 MG IVP ×2 (04:55→05:35)
[2020-07-20 06:43] LABS: Basophils % 0.1 %; Eosinophils % 0.2 %; Hemoglobin 12.8 g/dL (11.7-16.6); Lymphocytes % 8.6 %; Mean Corpuscular HGB Conc 29.8 g/dL (30.0-36.0); Mean Corpuscular Hemoglobin 27.6 pg (28.0-34.0); Mean Corpuscular Volume 92.7 fL (80-94); Mean Platelet Volume 11.6 fL (7.4-10.4); Monocytes # 0.7 10^3/uL (0.2-0.9); Monocytes % 5.7 %; Neutrophils % 84.9 %; Nucleated Red Blood Cells % 0 %; Platelet Count 51 10^3/cmm (130-400); Red Blood Count 4.64 10^6/uL (4.1-5.3); Red Cell Distribution Width 14.1 % (12.1-15.1)
[2020-07-20 07:11] LABS: Alanine Aminotransferase 19 U/L (0-41); Albumin Level 2.6 g/dL (3.5-5.2); Alkaline Phosphatase 124 IU/L (40-130); Anion Gap 6.1 (5-19); Aspartate Amino Transferase 16 U/L (0-40); Blood Urea Nitrogen 14 mg/dL (8-23); Calcium 8.3 mg/dL (8.5-10.5); Carbon Dioxide 38 mmol/L (22-29); Chloride 97 mmol/L (98-107); Globulin 2.7 g/dL (1.3-4.6); Glomerular Filtration Rate 298.2 mL/min (90-130); Glucose 76 mg/dL (65-115); Magnesium 1.5 mg/dL (1.7-2.3); Osmolality Calculated 283 mOsm/kg (285-295); Potassium 4.1 mmol/L (3.5-5.1); Sodium 137 mmol/L (136-145); Total Bilirubin 1.5 mg/dL (0.15-1.2); Total Protein 5.3 g/dL (6.6-8.7)
[2020-07-20] MEDS: fluconazole premix 200 MG/100 ML PREMIX 100 MG IV (07:32)
[2020-07-20] MEDS: ipratropium-albuterol 3 mL Neb INHALATION ×3 (08:01→19:38)
[2020-07-20] MEDS: budesonide 0.5 mg/2 mL Neb INHALATION ×2 (08:01→19:38)
[2020-07-20] MEDS: predniSONE 5 mg Tablet PO (08:57)
[2020-07-20] MEDS: losartan 50 mg Tablet 25 MG PO (08:58)
[2020-07-20] MEDS: metoprolol tartrate 25 mg Tablet PO ×2 (08:58→21:03)
[2020-07-20] MEDS: sennosides-docusate Tablet 2 TAB PO (08:58)
[2020-07-20] MEDS: famotidine 20 mg Tablet PO ×2 (08:59→17:43)
[2020-07-20] MEDS: fondaparinux 2.5 mg/0.5 mL Syringe SUBCUT (10:09)
[2020-07-20] MEDS: magnesium sulfate premix 2 GM/50 ML PIGGYBACK IV (10:10)
--- NOTE | 2020-07-20 10:48 | P.DS_ITS ---
Discharge Providers Date of Admission: 07/05/20 17:16 Date of Discharge: July 20, 2020 Attending Provider at Admission: Oliverio Malagon Attending Provider at Discharge: Joe Valentine MD Diagnoses at Discharge Discharge Diagnosis (1) Acute respiratory failure with hypoxia and hypercapnia: Status: Acute (2) Acute renal failure: Status: Acute Qualifiers: Acute renal failure type: with acute tubular necrosis Qualified Code(s): N17.0 - Acute kidney failure with tubular necrosis (3) Cardiomyopathy: Status: Acute Qualifiers: Cardiomyopathy type: unspecified Qualified Code(s): I42.9 - Cardiomyopathy, unspecified (4) Elevated troponin: Status: Acute (5) Left lower lobe pneumonia: Status: Acute (6) COPD (chronic obstructive pulmonary disease): Status: Chronic Qualifiers: COPD type: unspecified COPD Qualified Code(s): J44.9 - Chronic obstructive pulmonary disease, unspecified (7) Anemia: Status: Acute (8) Thrombocytopenia: Status: Acute Reason for Visit Reason for Visit: SOB/AMS/ + COUGH Hospital Course Hospital Course Jaime presented July 05 with respiratory failure as well as renal failure. There was concern with LLE cellulitis. He required intubation. He was placed on broad-spectrum antibiotics. Nephrology was consulted and ultimately pulmonary. Cardiology was also consulted for concern of cardiomyopathy. With the help of all subspecialties, time on IV antibiotics, and diuresis his renal function improved. Pneumonia and COPD exacerbation improved to the point he was extubated on July 13. He had a history of trilogy use at home so BiPAP was recommended at night which he tried to comply with but had some difficulty with comfort of mask. In regards to his heart and echocardiogram was performed demonstrated an EF of 30%. Ultimately low-dose beta-ayla was added as well as low-dose ARB as soon as renal function improved. He will require cardiology follow-up to determine if further work-up is needed. He received a full course of most antibiotics while inpatient. He will require 3 more days of Levaquin upon discharge. He completed high-dose therapy with steroids for COPD exacerbation and was converted back to prednisone 5 mg a day on discharge. He did have thrombocytopenia during his hospital stay with question of heparin- induced thrombocytopenia. Testing was sent for this, but pending at time of discharge. Please avoid any heparin products. He will get laboratory including a CBC for platelet count monitoring and CMP for electrolytes in 3 to 4 days. Secondary to thrush he will continue fluconazole which he was taking prior to admission. During my conversations with him he was pleasant, but somewhat under hard to understand. Note that he did have a CTA done while in the hospital demonstrating small left effusion, bilateral lower lobe atelectasis, no pulmonary embolism. Physical Exam Narrative: EXAM NARRATIVE: General exam no apparent distress Cardiovascular regular rate and rhythm Lungs clear but with diminished breath sounds at the bases Abdomen is soft, positive bowel sounds Extremities trace edema Urinary Catheter Management^: [place]: Cath Placed During This Visit: yes, but has since been removed by the nurse Reason for Continuing Indwelling Catheter: Decision to DC Catheter Urinary Catheter Date of Insertion: 07/05/20 Urinary Catheter Time of Insertion: 15:50 Date Urinary Catheter Removed: 07/18/20 Time Urinary Catheter Discontinued: 10:19 Discharge Data Data Completed and Pending: Completed Studies During Hospitalization Category Date Time Status CT abdomen pelvis wo con 17241 Rout ine Cat Scan 07/06/20 13:[address] angio chest PE protcl 91530 Stat Cat Scan 07/08/20 10:[address] head wo con* 7 0450 Urgent Cat Scan 07/05/20 14:56 Completed XR chest 1V edmar ble [id number] Routine Exams 07/07/20 10:14 Completed XR chest 1V edmar ble 92132 Routine Exams 07/08/20 07:00 Completed XR chest 1V edmar ble 16798 Routine Exams 07/11/20 07:00 Completed XR chest 1V edmar ble [id number] Routine Exams 07/12/20 08:49 Completed XR chest 1V edmar ble 60862 Routine Exams 07/14/20 07:00 Completed XR chest 1V edmar ble 37854 Routine Exams 07/17/20 06:56 Completed XR chest 1V edmar ble [id number] Routine Exams 07/19/20 10:17 Completed XR chest 1V edmar ble 75748 Stat Exams 07/05/20 17:09 Completed XR chest 1V edmar ble 47470 Stat Exams 07/06/20 13:10 Completed XR chest 1V edmar ble [id number] Stat Exams 07/13/20 04:43 Completed XR chest 1V edmar ble 89758 Urgent Exams 07/05/20 14:56 Completed CV echo complete* 11645 Routine Ultrasound 07/06/20 19:02 Completed US abdomen comple te* 70785 Routine Ultrasound 07/06/20 12:10 Completed Pending at discharge Category Date Time Status Arterial Blood Ga s Full Stat Lab 07/05/20 16:57 Received Arterial Blood Ga s W/O Coox Stat Lab 07/05/20 18:30 Ordered Heparin Induced P latelet AB Routine Lab 07/19/20 05:34 Received Immunochemical Fe reva OCB Routine Lab 07/05/20 19:02 Uncollected Labs from last 24 hours 07/20/20 07/20/20 07/19/20 06:30 06:30 05:34 WBC 12.0 H RBC 4.64 Hgb 12.8 Hct 43.0 MCV 92.7 MCH 27.6 L MCHC 29.8 L RDW 14.1 Plt Count 51 L MPV 11.6 H Neut % (Auto) 84.9 Lymph % (Auto) 8.6 Zavala % (Auto) 5.7 Eos % (Auto) 0.2 Baso % (Auto) 0.1 Neut # (Auto) 10.20 H Lymph # (Auto) 1.0 Zavala # (Auto) 0.7 Eos # (Auto) 0.0 Baso # (Auto) 0.0 Nucleated RBC % (a uto) 0 Nucleated RBCs # 0.0 Sodium 137 Potassium 4.1 Chloride 97 L Carbon Dioxide 38 H Anion Gap 6.1 BUN 14 Creatinine 0.3 L GFR Calculation 298.2 H Glucose 76 Calculated Osmolal ity 283 L Calcium 8.3 L Magnesium 1.5 L Total Bilirubin 1.5 H AST 16 ALT 19 Alkaline Phosphata se 124 Total Protein 5.3 L Albumin 2.6 L Globulin 2.7 TSH 2.86 Vitals: Last Vital Signs Temp 97.9 F 07/20/20 07:12 Pulse 74 07/20/20 08:05 Resp 18 07/20/20 08:02 BP 131/74 07/20/20 08:58 Pulse Ox 94 07/20/20 08:02 Discharge Plan Discharge Patient Disposition: Xfer SNF Condition: Stable Prescriptions: New oxycodone 5 mg Tablet 15 mg PO Q4H PRN (Reason: Severe Pain) Qty: 20 RF: 0 metoprolol tartrate 25 mg Tablet 25 mg PO BID@0900,2100 Qty: 60 RF: 0 losartan 50 mg Tablet 25 mg PO DAILY Qty: 30 RF: 0 levofloxacin 750 mg tablet 750 mg PO Q24H 7 Days Qty: 7 RF: 0 Continued finasteride [Proscar] 5 mg tablet 5 mg PO DAILY 30 Days Qty: 30 RF: 2 albuterol sulfate 2.5 mg /3 mL (0.083 %) solution for nebulization 2.5 mg INHALATION QID PRN (Reason: Shortness Of Breath) RF: 0 butenafine [Lotrimin Ultra] 1 % cream 1 applic TOPICAL BID PRN (Reason: Allergic Reaction) RF: 0 fluticasone propionate 50 mcg/actuation spray,suspension 2 spray INTRANASAL BID RF: 0 epinephrine 0.3 mg/0.3 mL auto-injector 0.3 mg IM ONCE RF: 0 Restasis MultiDose 0.05 % drops 1 drop ophthalmic (eye) Q12H RF: 0 mupirocin 2 % ointment 1 applic TOPICAL BID Qty: 22 RF: 2 cetirizine [Zyrtec] 10 mg tablet 10 mg PO DAILY PRN (Reason: allergy symptoms) 30 Days Qty: 30 RF: 5 diazepam [Valium] 10 mg tablet 10 mg PO DAILY PRN (Reason: anxiety) 60 Days Qty: 60 RF: 0 Lidocaine Viscous 2 % solution See Rx Instructions .ROUTE .COMPLEX Qty: 100 RF: 5 nystatin 100,000 unit/mL suspension 5 ml PO QID 30 Days Qty: 600 RF: 5 sucralfate [Carafate] 100 mg/mL suspension 10 ml PO QID 30 Days Qty: 1200 RF: 2 pantoprazole [Protonix] 40 mg tablet,delayed release (DR/EC) 40 mg PO DAILY 30 Days Qty: 30 RF: 2 budesonide [Pulmicort] 0.5 mg/2 mL suspension for nebulization 0.5 mg INHALATION BID 90 Days Qty: 360 RF: 3 (DME) walker with seat /wheels See Rx Instructions .Route .MEDSUPPLY Qty: 1 RF: 0 montelukast 10 mg tablet 10 mg PO DAILY Qty: 30 RF: 3 carbamide peroxide [Debrox] 6.5 % drops 10 drop EAR-BOTH DAILY 4 Days Qty: 30 RF: 0 ipratropium-albuterol 0.5 mg-3 mg(2.5 mg base)/3 mL solution for nebulization See Rx Instructions .ROUTE .COMPLEX Qty: 360 RF: 3 albuterol sulfate [ProAir HFA] 90 mcg/actuation HFA aerosol inhaler See Rx Instructions .ROUTE .COMPLEX Qty: 8.5 RF: 3 potassium chloride 20 mEq tablet extended release See Rx Instructions .ROUTE .COMPLEX Qty: 30 RF: 5 magnesium L-lactate [Magtab] 84 mg tablet extended release See Rx Instructions .ROUTE .COMPLEX Qty: 30 RF: 5 citalopram 20 mg tablet 20 mg PO DAILY 30 Days Qty: 30 RF: 2 azithromycin 500 mg tablet 500 mg PO .QOD 30 Days Qty: 15 RF: 3 prednisone 5 mg tablet 5 mg PO DAILY Qty: 30 RF: 0 ondansetron HCl 8 mg tablet 8 mg PO BID PRN (Reason: Nausea And Vomiting) RF: 0 azelastine 137 mcg (0.1 %) aerosol,spray 1 - 2 spray INTRANASAL BID RF: 0 carbamazepine 100 mg capsule, ER multiphase 12 hr 100 mg PO DAILY RF: 0 fluconazole 100 mg tablet 100 mg PO DAILY Qty: 10 RF: 0 Changed furosemide 20 mg tablet 40 mg PO DAILY Qty: 60 RF: 5 Discontinued prochlorperazine maleate 5 mg tablet 5 mg PO QID PRN (Reason: unknown) RF: 0 Hold Instructions: Order Change metolazone 2.5 mg tablet See Rx Instructions .ROUTE .COMPLEX Qty: 30 RF: 3 levofloxacin 750 mg tablet 750 mg PO DAILY 5 Days Qty: 5 RF: 0 promethazine 25 mg tablet 25 mg PO Q6H PRN (Reason: Nausea) Qty: 14 RF: 0 morphine 30 mg tablet 30 mg PO TID PRN (Reason: Pain) RF: 0 OxyContin 60 mg tablet,oral only,ext.rel.12 hr 60 mg PO Q12H RF: 0 Discharge Orders: Discharge Order (Routine); Ordered 07/20/20 Ordered By: Joe Valentine Other Ambulatory Orders: DME: BIPAP (Order) Location: None Selected Ordered By: Joe Valentine Referrals: Lilly Rowell MD [Physician] - 2 weeks Leighton Kam MD [Physician] - 2 weeks (Follow-up, COPD, pneumonia, right heart failure) Discharge Diet: Cardiac Discharge Activity: Increase activity as tolerated Activity Restrictions/Additional Instructions: Follow-up cardiomyopathy also follow-up with primary care provider [facility] in 3 to 4 days. CBC and CMP at that time for follow-up of thrombocytopenia, electrolytes Follow-up with primary care provider in 4 to 6 weeks. 4 L of oxygen per NC, titrate for sat 88-92% BiPAP at night Discharge Attestations Time Spent in Discharge Care*: greater than 30 min Quality Metrics Clinical Quality Measures During this hospital stay, did patient experience: None Coding Level of Care Code Acute Caustic Room Attendant for g Fwd Diagnoses Acute respiratory failure with hypoxia and hypercapnia J96.01; J96.02 Acute renal failure N17.0 Acute renal failure type: with acute tubular necrosis Cardiomyopathy I42.9 Cardiomyopathy type: unspecified Elevated troponin R77.8 Left lower lobe pneumonia J18.9 COPD (chronic obstructive pulmonary disease) J44.9 COPD type: unspecified COPD Anemia D64.9 Thrombocytopenia D69.6
--- NOTE | 2020-07-20 10:56 | PC.NURSE ---
pt refused vitals
--- NOTE | 2020-07-20 15:16 | P.PN_ITS ---
Subjective Subjective: Interval history: His discharge this morning to [facility] was held. Medications: Reviewed: Yes Medication Review Details: Current Medications Acetaminophen (Acetaminophen 325 Mg Tablet) 325 - 650 mg PO Q4H PRN PRN Reason: MILD PAIN OR INCREASE TEMP Acetaminophen (Acetaminophen 650 Mg Supp) 650 mg VA Q4H PRN PRN Reason: MILD PAIN OR INCREASE TEMP Last Admin: 07/13/20 09:19 Dose: 650 mg Documented by: Albuterol/Ipratropium (Ipratropium-Albuterol 3 Ml Neb) 3 ml INHALATION Q4H.RESPIRATORY PRN PRN Reason: SHORTNESS OF BREATH Last Admin: 07/13/20 13:47 Dose: 3 ml Documented by: Budesonide (Budesonide 0.5 Mg/2 Ml Neb) 0.5 mg INHALATION BID.RESPIRATORY VIMAL Last Admin: 07/13/20 07:26 Dose: 0.5 mg Documented by: Famotidine (Famotidine 20 Mg/2 Ml Inj) 20 mg IVP Q12H VIMAL Last Admin: 07/13/20 05:05 Dose: 20 mg Documented by: Fondaparinux (Fondaparinux 2.5 Mg/0.5 Ml Syringe) 2.5 mg SUBCUT DAILY VIMAL Last Admin: 07/13/20 10:01 Dose: 2.5 mg Documented by: Norepinephrine Bitartrate 4 mg (/ Dextrose) 254 mls @ 0 mls/hr IV .Q0M [facility]; Protocol Last Titration: 07/13/20 10:05 Dose: 0 mcg/min, 0 mls/hr Documented by: Dexmedetomidine HCl 400 mcg/ (Sodium Chloride) 104 mls @ 0 mls/hr IV .Q0M [facility]; Protocol Last Titration: 07/13/20 12:15 Dose: 0 mcg/kg/hr, 0 mls/hr Documented by: Imipenem/Cilastatin Sodium 500 (mg/ Sodium Chloride) 100 mls @ 200 mls/hr IV Q6H [facility]; Protocol Last Infusion: 07/13/20 16:31 Dose: Infused Documented by: Dextrose (D5w) 1,000 mls @ 75 mls/hr IV .[id number] VIMAL Last Infusion: 07/13/20 12:47 Dose: 75 mls/hr Documented by: Linezolid (Zyvox Premix) 600 mg in 300 mls @ 300 mls/hr IV Q12H [facility]; Protocol Potassium Chloride (K-Petey) 100 mls @ 25 mls/hr IV ONCE ONE Stop: 07/13/20 21:13 Last Admin: 07/13/20 17:50 Dose: 25 mls/hr Documented by: Levofloxacin (Levofloxacin 750 Mg Tablet) 750 mg PO DAILY@0600 [facility]; Protocol Last Admin: 07/13/20 05:05 Dose: 750 mg Documented by: Methylprednisolone Sodium Succinate (Methylprednisolone Sod Succ 40 Mg/Ml Inj) 40 mg IVP DAILY [facility] Last Admin: 07/13/20 08:57 Dose: 40 mg Documented by: Morphine Sulfate (Morphine 4 Mg/Ml Sdv 1 Ml) 2 mg IVP Q2H PRN PRN Reason: SEVERE PAIN Last Admin: 07/13/20 02:39 Dose: 2 mg Documented by: Potassium Phosphate (Phosphorus 250 Mg Tablet) 250 mg PO BID [facility] Vitals/I&O/Wt Last Vital Signs Temp 97.8 F 07/20/20 15:08 Pulse 74 07/20/20 15:08 Resp 18 07/20/20 15:08 BP 94/62 07/20/20 15:08 Pulse Ox 91 07/20/20 15:08 07/20/20 07/20/20 07/20/20 06:59 14:59 22:59 Intake Total 100 / 1500 610 / 610 Output Total 650 / 1950 Balance -550 / -450 610 / 610 Weight last 48 hrs Weight 237 lb 12.8 oz Weight 245 lb 9.6 oz Physical Exam Narrative: EXAM NARRATIVE: GENERAL: Patient currently on NC NECK: No jugular vein distension appreciated. HEENT: No cyanosis. No icterus. No pallor. HEART: Regular S1 and S2. No murmur, rub or gallop. LUNGS:coarse bilateral breath sounds ABDOMEN: Soft, non distended. CENTRAL NERVOUS SYSTEM: awake and alert, moving all extremities and answering questions appropriately EXTREMITIES: Lower extremities w/o edema bilaterally. Bilateral leg chronic discoloration Urinary Catheter Management^: [place]: Cath Placed During This Visit: yes, but has since been removed by the nurse Reason for Continuing Indwelling Catheter: Decision to DC Catheter Urinary Catheter Date of Insertion: 07/05/20 Urinary Catheter Time of Insertion: 15:50 Date Urinary Catheter Removed: 07/18/20 Time Urinary Catheter Discontinued: 10:19 Data : 07/20/20 06:30 07/20/20 06:30 A&P Assessment and plan (1) Cardiomyopathy: newly diagnosed drop in LV function. -He will require further ischemic w/u once stable as an outpatient. -currently on low dose metoprolol tartrate 25 mg BID. -May change to metoprolol succinate 25 mg daily. -Losartan was added and renal function has been good. -recommend adding low dose aldactone. -I will sign off for now. Please call with questions or concerns. -f/u in office with me 2 weeks post discharge. Status: Acute Qualifiers: Cardiomyopathy type: unspecified Qualified Code(s): I42.9 - Cardiomyopathy, unspecified (2) Acute cor pulmonale: Most likely secondary to COPD; CT scan negative for PE Status: Acute (3) Acute renal failure: resolved. Status: Acute Qualifiers: Acute renal failure type: with acute tubular necrosis Qualified Code(s): N17.0 - Acute kidney failure with tubular necrosis (4) Elevated troponin: NSTEMI type II in setting of renal failure and respiratory failure Status: Acute Additional A&P Information Acute on chronic respiratory failure: now extubated to NC Hyponatremia: resolved Metabolic alkalosis HTN COPD PAD SCC of vocal cord MANISH Hypomagnesemia: being replaced. Hypokalemia: replaced Thrombocytopenia Attestations Medical Necessity Statement*: As per primary team Time Spent in Patient Care: 16 - 35 minutes (>than 50% of time spent in counselling and/or direct pt care on unit) . Coding Level of Care Code Acute Clinic Business Manager for Seymour Whitfield Diagnoses Cardiomyopathy I42.9 Cardiomyopathy type: unspecified Acute cor pulmonale I26.09 Acute renal failure N17.0 Acute renal failure type: with acute tubular necrosis Elevated troponin R77.8
[2020-07-20] MEDS: zolpidem 5 mg Tablet PO (21:04)
[2020-07-21] VITALS (14 sets, daily range): BP systolic 96–128; BP diastolic 54–88; PULSE 54–100; RESP 17–19; TEMP 36.3–37.1; O2SAT 90–98
[2020-07-21 04:53] LABS: Basophils % 0.2 %; Eosinophils # 0.1 10^3/uL (0.0-0.8); Hematocrit 42.5 % (42.0-52.0); Hemoglobin 12.5 g/dL (11.7-16.6); Lymphocytes # 1.5 10^3/uL (0.8-4.8); Lymphocytes % 13.2 %; Mean Corpuscular HGB Conc 29.4 g/dL (30.0-36.0); Mean Corpuscular Hemoglobin 27.3 pg (28.0-34.0); Mean Corpuscular Volume 92.8 fL (80-94); Mean Platelet Volume 12.4 fL (7.4-10.4); Monocytes # 0.8 10^3/uL (0.2-0.9); Monocytes % 6.9 %; Neutrophils # 8.97 10^3/uL (1.8-7.7); Neutrophils % 78.2 %; Nucleated Red Blood Cells % 0 %; Platelet Count 57 10^3/cmm (130-400); Red Blood Count 4.58 10^6/uL (4.1-5.3); White Blood Count 11.5 10^3/uL (4.0-10.0)
[2020-07-21 05:22] LABS: Alanine Aminotransferase 18 U/L (0-41); Albumin Level 2.7 g/dL (3.5-5.2); Alkaline Phosphatase 139 IU/L (40-130); Aspartate Amino Transferase 17 U/L (0-40); Blood Urea Nitrogen 14 mg/dL (8-23); Calcium 8.3 mg/dL (8.5-10.5); Carbon Dioxide 37 mmol/L (22-29); Chloride 98 mmol/L (98-107); Globulin 2.7 g/dL (1.3-4.6); Glomerular Filtration Rate 298.2 mL/min (90-130); Glucose 69 mg/dL (65-115); Osmolality Calculated 289 mOsm/kg (285-295); Sodium 140 mmol/L (136-145); Total Bilirubin 1.2 mg/dL (0.15-1.2); Total Protein 5.4 g/dL (6.6-8.7)
[2020-07-21] MEDS: oxyCODONE 5 mg IR Tab/Cap 15 MG PO (08:28)
[2020-07-21] MEDS: sennosides-docusate Tablet 2 TAB PO ×2 (08:28→18:24)
[2020-07-21] MEDS: losartan 50 mg Tablet 25 MG PO (08:29)
[2020-07-21] MEDS: fluconazole 100 mg Tablet PO (08:30)
[2020-07-21] MEDS: famotidine 20 mg Tablet PO ×2 (08:30→18:24)
[2020-07-21] MEDS: LORazepam 0.5 mg Tablet 0.25 MG PO (08:30)
[2020-07-21] MEDS: predniSONE 5 mg Tablet PO (08:30)
[2020-07-21] MEDS: metoprolol tartrate 25 mg Tablet PO (08:40)
[2020-07-21] MEDS: fondaparinux 2.5 mg/0.5 mL Syringe SUBCUT (08:41)
[2020-07-21] MEDS: budesonide 0.5 mg/2 mL Neb INHALATION ×2 (08:48→20:50)
[2020-07-21] MEDS: ipratropium-albuterol 3 mL Neb INHALATION ×2 (08:48→20:50)
--- NOTE | 2020-07-21 13:15 | P.PN_ITS ---
Subjective Subjective: Interval history: This is a 70-year-old male who presented July 05 with respiratory and renal failure. He also was concern for cellulitis. Patient was intubated. Nephrology, pulmonary and cardiology consulted. The patient was discharged yesterday. This was canceled. He was seen with physical therapy. No acute events. Vitals/I&O/Wt Last Vital Signs Temp 97.8 F 07/21/20 11:55 Pulse 72 07/21/20 11:55 Resp 18 07/21/20 11:55 BP 100/65 07/21/20 11:55 Pulse Ox 95 07/21/20 11:55 07/20/20 07/21/20 07/21/20 22:59 06:59 14:59 Intake Total 1040 / 1650 100 / 1750 340 / 340 Output Total 240 / 240 425 / 665 750 / 750 Balance 800 / 1410 -325 / 1085 -410 / -410 Weight last 48 hrs Weight 242 lb Weight 237 lb 12.8 oz Physical Exam Const: COMMON NORMALS: no acute distress and patient oriented x3 Resp: COMMON NORMALS: normal respiratory effort and No retractions Cardio: COMMON NORMALS: regular rate RATE: regular rate GI: COMMON NORMALS: Normal to inspection, nondistended, normoactive bowel sounds present and Soft to palpation PALPATION: Yes Soft to palpation Extremity: COMMON NORMALS: normal to inspection and full ROM Neuro: COMMON NORMALS: patient oriented x3 Urinary Catheter Management^: [place]: Cath Placed During This Visit: yes, but has since been removed by the nurse Reason for Continuing Indwelling Catheter: Decision to DC Catheter Urinary Catheter Date of Insertion: 07/05/20 Urinary Catheter Time of Insertion: 15:50 Date Urinary Catheter Removed: 07/18/20 Time Urinary Catheter Discontinued: 10:19 Data : 07/21/20 03:01 07/21/20 03:01 Micro: Microbiology 07/20/20 14:00 Occult Blood (FIT) - Final Stool Routine Collection A&P Assessment and plan (1) Acute respiratory failure with hypoxia and hypercapnia: Multifactorial including COPD pneumonia BiPAP as needed Modified diet, aspiration precautions Continue prednisone inhalers Status: Acute (2) Acute renal failure: Improved appreciate nephrology Noe Status: Acute Qualifiers: Acute renal failure type: with acute tubular necrosis Qualified Code(s): N17.0 - Acute kidney failure with tubular necrosis (3) Left lower lobe pneumonia: Off antibiotics Status: Acute (4) Elevated troponin: Status: Acute Additional A&P Information Thrush-fluconazole Full: Await case management for assistance and placement Attestations Medical Necessity Statement*: Jaime Olivares's hospital stay will require greater than 2 midnights for respiratory failure Coding Level of Care Code Acute Ordained Minister for g Fwd Exam Detailed Diagnoses Acute respiratory failure with hypoxia and hypercapnia J96.01; J96.02 Acute renal failure N17.0 Acute renal failure type: with acute tubular necrosis Left lower lobe pneumonia J18.9 Elevated troponin R77.8
[2020-07-21] MEDS: LORazepam 2 mg/mL INJ 1 mL 1 MG IVP (21:49)
[2020-07-21] MEDS: zolpidem 5 mg Tablet PO (23:48)
[2020-07-22] VITALS (12 sets, daily range): BP systolic 108–156; BP diastolic 64–74; PULSE 65–95; RESP 16–18; TEMP 36.6–37.1; O2SAT 92–98
[2020-07-22] MEDS: losartan 50 mg Tablet 25 MG PO (08:18)
[2020-07-22] MEDS: famotidine 20 mg Tablet PO (08:18)
[2020-07-22] MEDS: sennosides-docusate Tablet 2 TAB PO (08:18)
[2020-07-22] MEDS: metoprolol tartrate 25 mg Tablet PO ×2 (08:19→20:45)
[2020-07-22] MEDS: predniSONE 5 mg Tablet PO (08:20)
[2020-07-22] MEDS: LORazepam 0.5 mg Tablet 0.25 MG PO ×2 (08:20→14:57)
[2020-07-22] MEDS: fluconazole 100 mg Tablet PO (08:20)
[2020-07-22] MEDS: budesonide 0.5 mg/2 mL Neb INHALATION ×2 (08:34→20:25)
[2020-07-22] MEDS: ipratropium-albuterol 3 mL Neb INHALATION ×2 (08:34→20:25)
--- NOTE | 2020-07-22 08:35 | PC.NURSE ---
called patient's twice and transferred call to patient as requested.
--- NOTE | 2020-07-22 09:35 | PC.OT ---
OT tx attempted. Nurse and 1:1 in the room. Nurse requests OT tx to be withheld at this time as pt has just settled down and gone to sleep. Therapist to return around lunch time to check pt status.
[2020-07-22] MEDS: fondaparinux 2.5 mg/0.5 mL Syringe SUBCUT (10:45)
[2020-07-22 11:23] LABS: Heparin-Induced Platelet AB Negative (Negative)
--- NOTE | 2020-07-22 11:39 | PC.NURSE ---
patient is unable to urinate. patient has tried multiple times. bladder scanned patient. bladder scan shows 563ml. Notified Dr Botello. Per Dr Botello, place pruitt cath for retention. writer producer put in order for pruitt catheter, placed pruitt and 500ml urine out on insertion of pruitt catheter.
--- NOTE | 2020-07-22 11:46 | PM.PN ---
Subjective Subjective: Interval history: This is a 70-year-old male who presented July 05 with respiratory and renal failure. He also was concern for cellulitis. Patient was intubated. Nephrology, pulmonary and cardiology consulted. The patient was discharged 07/20 This was canceled. He was seen with sitter noted to have urinary retention on bladder scan no other acute events Medications: Reviewed: Yes Medication Review Details: Current Medications Acetaminophen (Acetaminophen 325 Mg Tablet) 325 - 650 mg PO Q4H PRN PRN Reason: MILD PAIN OR INCREASE TEMP Acetaminophen (Acetaminophen 650 Mg Supp) 650 mg [place] Q4H PRN PRN Reason: MILD PAIN OR INCREASE TEMP Last Admin: 07/13/20 09:19 Dose: 650 mg Documented by: Albuterol/Ipratropium (Ipratropium-Albuterol 3 Ml Neb) 3 ml INHALATION Q4H.RESPIRATORY PRN PRN Reason: SHORTNESS OF BREATH Last Admin: 07/13/20 13:47 Dose: 3 ml Documented by: Budesonide (Budesonide 0.5 Mg/2 Ml Neb) 0.5 mg INHALATION BID.RESPIRATORY VIMAL Last Admin: 07/13/20 07:26 Dose: 0.5 mg Documented by: Famotidine (Famotidine 20 Mg/2 Ml Inj) 20 mg IVP Q12H VIMAL Last Admin: 07/13/20 05:05 Dose: 20 mg Documented by: Fondaparinux (Fondaparinux 2.5 Mg/0.5 Ml Syringe) 2.5 mg SUBCUT DAILY VIMAL Last Admin: 07/13/20 10:01 Dose: 2.5 mg Documented by: Norepinephrine Bitartrate 4 mg (/ Dextrose) 254 mls @ 0 mls/hr IV .Q0M [facility]; Protocol Last Titration: 07/13/20 10:05 Dose: 0 mcg/min, 0 mls/hr Documented by: Dexmedetomidine HCl 400 mcg/ (Sodium Chloride) 104 mls @ 0 mls/hr IV .Q0M [facility]; Protocol Last Titration: 07/13/20 12:15 Dose: 0 mcg/kg/hr, 0 mls/hr Documented by: Imipenem/Cilastatin Sodium 500 (mg/ Sodium Chloride) 100 mls @ 200 mls/hr IV Q6H [facility]; Protocol Last Infusion: 07/13/20 16:31 Dose: Infused Documented by: Dextrose (D5w) 1,000 mls @ 75 mls/hr IV .[id number] [facility] Last Infusion: 07/13/20 12:47 Dose: 75 mls/hr Documented by: Linezolid (Zyvox Premix) 600 mg in 300 mls @ 300 mls/hr IV Q12H [facility]; Protocol Potassium Chloride (K-Petey) 100 mls @ 25 mls/hr IV ONCE ONE Stop: 07/13/20 21:13 Last Admin: 07/13/20 17:50 Dose: 25 mls/hr Documented by: Levofloxacin (Levofloxacin 750 Mg Tablet) 750 mg PO DAILY@0600 [facility]; Protocol Last Admin: 07/13/20 05:05 Dose: 750 mg Documented by: Methylprednisolone Sodium Succinate (Methylprednisolone Sod Succ 40 Mg/Ml Inj) 40 mg IVP DAILY [facility] Last Admin: 07/13/20 08:57 Dose: 40 mg Documented by: Morphine Sulfate (Morphine 4 Mg/Ml Sdv 1 Ml) 2 mg IVP Q2H PRN PRN Reason: SEVERE PAIN Last Admin: 07/13/20 02:39 Dose: 2 mg Documented by: Potassium Phosphate (Phosphorus 250 Mg Tablet) 250 mg PO BID [facility] Vitals/I&O/Wt Last Vital Signs Temp 98.3 F 07/22/20 10:39 Pulse 80 07/22/20 10:39 Resp 17 07/22/20 10:39 BP 114/71 07/22/20 10:39 Pulse Ox 97 07/22/20 10:39 07/21/20 07/22/20 07/22/20 22:59 06:59 14:59 Intake Total 460 / 1020 100 / 1120 320 / 320 Output Total 950 / 1700 500 / 500 Balance -490 / -680 100 / -580 -180 / -180 Weight last 48 hrs Weight 245 lb 1.6 oz Weight 242 lb Physical Exam Const: COMMON NORMALS: no acute distress Resp: COMMON NORMALS: normal respiratory effort and No retractions OTHER: dry cough Cardio: COMMON NORMALS: regular rate RATE: regular rate GI: COMMON NORMALS: Normal to inspection, nondistended, normoactive bowel sounds present and Soft to palpation PALPATION: Yes Soft to palpation Extremity: COMMON NORMALS: normal to inspection Urinary Catheter Management^: Pruitt: Cath Placed During This Visit: yes, but has since been removed by the nurse Reason for Continuing Indwelling Catheter: Decision to DC Catheter Urinary Catheter Date of Insertion: 07/22/20 Urinary Catheter Time of Insertion: 11:35 Date Urinary Catheter Removed: 07/18/20 Time Urinary Catheter Discontinued: 10:19 Data : 07/21/20 03:01 07/21/20 03:01 A&P Assessment and plan (1) Acute respiratory failure with hypoxia and hypercapnia: Multifactorial including COPD pneumonia BiPAP as needed Modified diet, aspiration precautions Continue prednisone inhalers Status: Acute (2) Acute renal failure: Improved appreciate nephrology Noe Status: Acute Qualifiers: Acute renal failure type: with acute tubular necrosis Qualified Code(s): N17.0 - Acute kidney failure with tubular necrosis (3) Left lower lobe pneumonia: Off antibiotics Status: Acute (4) Elevated troponin: no chest pain Status: Acute Additional A&P Information Thrush-fluconazole Thrombocytopenia- monitor CBC urinary retention- bladder scan, straight cath. he may need pruitt Full: Await case management for assistance and placement Attestations Medical Necessity Statement*: Jaime Olivares's hospital stay will require greater than 2 midnights for weakness, ams Coding Level of Care Code Acute Resort Manager for Chg Fwd Diagnoses Acute respiratory failure with hypoxia and hypercapnia J96.01; J96.02 Acute renal failure N17.0 Acute renal failure type: with acute tubular necrosis Left lower lobe pneumonia J18.9 Elevated troponin R77.8
[2020-07-22] MEDS: zolpidem 5 mg Tablet PO (20:45)
[2020-07-23] VITALS (15 sets, daily range): BP systolic 124–169; BP diastolic 69–82; PULSE 70–90; RESP 16–22; TEMP 36.2–36.7; O2SAT 85–94
[2020-07-23] MEDS: LORazepam 2 mg/mL INJ 1 mL 0.5 MG IVP (05:29)
[2020-07-23 06:33] LABS: Basophils % 0.3 %; Eosinophils % 0.4 %; Hematocrit 40.5 % (42.0-52.0); Hemoglobin 11.6 g/dL (11.7-16.6); Lymphocytes # 1.3 10^3/uL (0.8-4.8); Mean Corpuscular HGB Conc 28.6 g/dL (30.0-36.0); Mean Corpuscular Volume 94.4 fL (80-94); Mean Platelet Volume 11.2 fL (7.4-10.4); Monocytes # 0.9 10^3/uL (0.2-0.9); Monocytes % 8.2 %; Neutrophils % 77.5 %; Nucleated Red Blood Cells % 0 %; Platelet Count 64 10^3/cmm (130-400); Red Blood Count 4.29 10^6/uL (4.1-5.3); Red Cell Distribution Width 14.4 % (12.1-15.1); White Blood Count 10.3 10^3/uL (4.0-10.0)
[2020-07-23 07:26] LABS: Blood Urea Nitrogen 10 mg/dL (8-23); Calcium 8.2 mg/dL (8.5-10.5); Carbon Dioxide 36 mmol/L (22-29); Chloride 99 mmol/L (98-107); Glomerular Filtration Rate 298.2 mL/min (90-130); Glucose 79 mg/dL (65-115); Osmolality Calculated 286 mOsm/kg (285-295); Sodium 139 mmol/L (136-145)
[2020-07-23 07:47] LABS: Anion Gap 7.8 (5-19); Potassium 3.8 mmol/L (3.5-5.1)
[2020-07-23] MEDS: budesonide 0.5 mg/2 mL Neb INHALATION (07:55)
[2020-07-23] MEDS: ipratropium-albuterol 3 mL Neb INHALATION ×2 (07:55→15:11)
[2020-07-23] MEDS: fluconazole 100 mg Tablet PO (08:30)
[2020-07-23] MEDS: metoprolol tartrate 25 mg Tablet PO ×2 (08:30→21:10)
[2020-07-23] MEDS: sennosides-docusate Tablet 2 TAB PO (08:30)
[2020-07-23] MEDS: fondaparinux 2.5 mg/0.5 mL Syringe SUBCUT (08:31)
[2020-07-23] MEDS: famotidine 20 mg Tablet PO (08:31)
[2020-07-23] MEDS: predniSONE 5 mg Tablet PO (08:31)
[2020-07-23] MEDS: losartan 50 mg Tablet 25 MG PO (08:31)
[2020-07-23] MEDS: oxyCODONE 5 mg IR Tab/Cap 15 MG PO (09:12)
--- NOTE | 2020-07-23 10:00 | PC.NURSE ---
patient resting with eyes closed
--- NOTE | 2020-07-23 10:29 | PC.OT ---
Nursing requests OT to hold tx at this time as pt has been medicated and is now sleeping. OT to attempt tx again at a later time if possible.
[2020-07-23 11:33] LABS: ABG PCO2 55.3 mmHg (35-45); ABG PH Result 7.43 (7.35-7.45); Arterial Blood Gas Hematocrit 36.4 % (42-52); Base Excess ABG 10.5 mmol/L (-2.0-2.0); Blood Gas Allen Test Pos; Blood Gas Operator Identificat GD; Blood Gas Sample Site Radial, right; Blood Gas Sample Type Arterial; HCO3 ABG 36.6 mmol/L (22-26); Oxygen Device NC; PO2 ABG 70.1 mmHg (80.0-100.0)
--- NOTE | 2020-07-23 14:21 | PC.NURSE ---
Called patient's as patient requested and transferred call to patient's room
--- NOTE | 2020-07-23 15:04 | P.PN_ITS ---
Subjective Subjective: Interval history: This morning patient was examined, he is a bit somnolent, can arouse, can follow some commands, but falls back asleep, no episodes of agitation overnight, he did receive an oxycodone pill this morning, did receive Ambien overnight, did receive 0.5 mg of Ativan, his PCO2 is 55, afebrile, normotensive Patient will clinically benefit from a hospital bed, head of bed elevated greater than 30 degrees Medications: Reviewed: Yes Medication Review Details: Current Medications Acetaminophen (Acetaminophen 325 Mg Tablet) 325 - 650 mg PO Q4H PRN PRN Reason: MILD PAIN OR INCREASE TEMP Acetaminophen (Acetaminophen 650 Mg Supp) 650 mg [place] Q4H PRN PRN Reason: MILD PAIN OR INCREASE TEMP Last Admin: 07/13/20 09:19 Dose: 650 mg Documented by: Albuterol/Ipratropium (Ipratropium-Albuterol 3 Ml Neb) 3 ml INHALATION Q4H.RESPIRATORY PRN PRN Reason: SHORTNESS OF BREATH Last Admin: 07/13/20 13:47 Dose: 3 ml Documented by: Budesonide (Budesonide 0.5 Mg/2 Ml Neb) 0.5 mg INHALATION BID.RESPIRATORY VIMAL Last Admin: 07/13/20 07:26 Dose: 0.5 mg Documented by: Famotidine (Famotidine 20 Mg/2 Ml Inj) 20 mg IVP Q12H [facility] Last Admin: 07/13/20 05:05 Dose: 20 mg Documented by: Fondaparinux (Fondaparinux 2.5 Mg/0.5 Ml Syringe) 2.5 mg SUBCUT DAILY VIMAL Last Admin: 07/13/20 10:01 Dose: 2.5 mg Documented by: Norepinephrine Bitartrate 4 mg (/ Dextrose) 254 mls @ 0 mls/hr IV .Q0M [facility]; Protocol Last Titration: 07/13/20 10:05 Dose: 0 mcg/min, 0 mls/hr Documented by: Dexmedetomidine HCl 400 mcg/ (Sodium Chloride) 104 mls @ 0 mls/hr IV .Q0M [facility]; Protocol Last Titration: 07/13/20 12:15 Dose: 0 mcg/kg/hr, 0 mls/hr Documented by: Imipenem/Cilastatin Sodium 500 (mg/ Sodium Chloride) 100 mls @ 200 mls/hr IV Q6H [facility]; Protocol Last Infusion: 07/13/20 16:31 Dose: Infused Documented by: Dextrose (D5w) 1,000 mls @ 75 mls/hr IV .[id number] [facility] Last Infusion: 07/13/20 12:47 Dose: 75 mls/hr Documented by: Linezolid (Zyvox Premix) 600 mg in 300 mls @ 300 mls/hr IV Q12H [facility]; Protocol Potassium Chloride (K-Petey) 100 mls @ 25 mls/hr IV ONCE ONE Stop: 07/13/20 21:13 Last Admin: 07/13/20 17:50 Dose: 25 mls/hr Documented by: Levofloxacin (Levofloxacin 750 Mg Tablet) 750 mg PO DAILY@0600 [facility]; Protocol Last Admin: 07/13/20 05:05 Dose: 750 mg Documented by: Methylprednisolone Sodium Succinate (Methylprednisolone Sod Succ 40 Mg/Ml Inj) 40 mg IVP DAILY [facility] Last Admin: 07/13/20 08:57 Dose: 40 mg Documented by: Morphine Sulfate (Morphine 4 Mg/Ml Sdv 1 Ml) 2 mg IVP Q2H PRN PRN Reason: SEVERE PAIN Last Admin: 07/13/20 02:39 Dose: 2 mg Documented by: Potassium Phosphate (Phosphorus 250 Mg Tablet) 250 mg PO BID [facility] Vitals/I&O/Wt Last Vital Signs Temp 97.7 F 07/23/20 11:03 Pulse 87 07/23/20 14:00 Resp 22 H 07/23/20 11:03 BP 169/82 07/23/20 11:03 Pulse Ox 94 07/23/20 11:03 07/23/20 07/23/20 07/23/20 06:59 14:59 22:59 Intake Total 200 / 740 820 / 820 Output Total 625 / 1500 Balance -425 / -760 820 / 820 Weight last 48 hrs Weight 110.28 kg Weight 111.175 kg Physical Exam Const: COMMON NORMALS: no acute distress ORIENTATION/CONSCIOUSNESS: Yes awake and Yes confused; not oriented to person, not oriented to place and not oriented to time HENMT: COMMON NORMALS: normocephalic HEAD & SCALP: normocephalic Neck/C-Spine: COMMON NORMALS: no JVD Resp: COMMON NORMALS: normal respiratory effort, No retractions, No use of accessory muscles and clear to auscultation bilaterally AUSCULTATION: clear to auscultation bilaterally Cardio: COMMON NORMALS: no JVD, regular rate, regular rhythm, S1 normal heart sound present and S2 normal heart sound present RATE: regular rate RHYTHM: regular rhythm HEART SOUNDS: S1 normal heart sound present and S2 normal heart sound present GI: COMMON NORMALS: Normal to inspection, nondistended, normoactive bowel sounds present, Soft to palpation, non-tender, No hepatosplenomegaly present, no masses and no bruits PALPATION: Yes Soft to palpation and Yes No hepatosplenomegaly present Extremity: COMMON NORMALS: capillary refill normal, no clubbing, cyanosis or edema, no calf tenderness and no pedal edema Neuro: SENSORIUM/ORIENTATION: No oriented to person, No oriented to place and No oriented to time Urinary Catheter Management^: Pruitt: Cath Placed During This Visit: yes, but has since been removed by the nurse Reason for Continuing Indwelling Catheter: Assist Healing of Perineal & Sacral Wounds- Incontinent Patients Urinary Catheter Date of Insertion: 07/22/20 Urinary Catheter Time of Insertion: 11:35 Date Urinary Catheter Removed: 07/18/20 Time Urinary Catheter Discontinued: 10:19 Data : 07/23/20 06:00 07/23/20 06:00 A&P Assessment and plan (1) Altered mental status: -Likely multifactorial a component of hypercarbia, narcotics, Ativan, Ambien -Hold sedating medication -BiPAP schedule during the night -We will order CT of the head, carotid artery ultrasound -Continue to monitor mentation Status: Acute (2) Acute respiratory failure with hypoxia and hypercapnia: Multifactorial including COPD pneumonia Stop Primaxin BiPAP schedule during the night, as needed during the day Modified diet, aspiration precautions Continue prednisone inhalers Status: Acute (3) Acute renal failure: Improved appreciate nephrology Noe Status: Acute Qualifiers: Acute renal failure type: with acute tubular necrosis Qualified Code(s): N17.0 - Acute kidney failure with tubular necrosis (4) Left lower lobe pneumonia: Off antibiotics Status: Acute (5) Elevated troponin: no chest pain Status: Acute Additional A&P Information Left lower extremity cellulitis, finished IV antibiotic treatment Cardiomyopathy, EF of 30% mildly Work right now thrush-fluconazole Thrombocytopenia- monitor CBC urinary retention- bladder scan, straight cath. he may need pruitt DVT prophylaxis, fondaparinux Full: Await case management for assistance and placement Attestations Medical Necessity Statement*: Patient requires hospitalization for acute respiratory failure, acute metabolic encephalopathy, pneumonia, cellulitis, cor pulmonale, awaiting group home placement Coding Level of Care Code Acute Grinding Wheel Operator for Chg Fwd Diagnoses Altered mental status R41.82 Acute respiratory failure with hypoxia and hypercapnia J96.01; J96.02 Acute renal failure N17.0 Acute renal failure type: with acute tubular necrosis Left lower lobe pneumonia J18.9 Elevated troponin R77.8
--- NOTE | 2020-07-23 16:02 | PC.NURSE ---
asked patient if he wants to order ativan or something for patient for the CT scan. Per Dr George, no, cancel it.
--- NOTE | 2020-07-23 16:11 | PC.NURSE ---
patient's sent pictures of patient's morphine 30mg tab TID and oxycontin 60mg tab BID. Per Dr George, hold for now given patient's somnolence.
[2020-07-23] MEDS: amlodipine 10 mg Tablet PO (16:34)
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
--- NOTE | 2020-07-23 16:43 | PC.NURSE ---
patient was offered Jello, Pudding and broth and patient refused all
--- NOTE | 2020-07-23 16:53 | PC.NURSE ---
patient requested to speak with his . typewriter repairer called patient's and transferred call into patient's room.
--- NOTE | 2020-07-23 17:17 | PC.OT ---
OT tx attempted again at 1600. Pt fluctuating between agitated and lethargic behaviors. OT tx withheld at this time and will be attempted again tomorrow.
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
--- NOTE | 2020-07-23 17:58 | PC.NURSE ---
rcvd telephone order from Dr George for Haldol 2mg IM Q4H.
[2020-07-23] MEDS: haloperidol inj 5 mg/mL INJ 1 mL 2 MG IM (18:28)
[2020-07-24] VITALS (17 sets, daily range): BP systolic 105–131; BP diastolic 64–82; PULSE 70–99; RESP 15–21; TEMP 36.9–37; O2SAT 88–97
[2020-07-24] MEDS: haloperidol inj 5 mg/mL INJ 1 mL 2 MG IM ×2 (00:08→22:28)
[2020-07-24] MEDS: ipratropium-albuterol 3 mL Neb INHALATION ×4 (03:21→21:06)
[2020-07-24 05:38] LABS: Basophils % 0.3 %; Eosinophils % 0.2 %; Hematocrit 39.9 % (42.0-52.0); Hemoglobin 11.8 g/dL (11.7-16.6); Lymphocytes # 1.1 10^3/uL (0.8-4.8); Lymphocytes % 10.6 %; Mean Corpuscular HGB Conc 29.6 g/dL (30.0-36.0); Mean Corpuscular Hemoglobin 27.7 pg (28.0-34.0); Mean Corpuscular Volume 93.7 fL (80-94); Mean Platelet Volume 10.5 fL (7.4-10.4); Monocytes # 0.8 10^3/uL (0.2-0.9); Monocytes % 7.8 %; Neutrophils # 8.54 10^3/uL (1.8-7.7); Neutrophils % 80.3 %; Nucleated Red Blood Cells % 0 %; Platelet Count 90 10^3/cmm (130-400); Red Blood Count 4.26 10^6/uL (4.1-5.3); Red Cell Distribution Width 14.5 % (12.1-15.1); White Blood Count 10.6 10^3/uL (4.0-10.0)
[2020-07-24 06:11] LABS: Alanine Aminotransferase 19 U/L (0-41); Albumin Level 2.4 g/dL (3.5-5.2); Alkaline Phosphatase 124 IU/L (40-130); Anion Gap 8.8 (5-19); Aspartate Amino Transferase 21 U/L (0-40); Blood Urea Nitrogen 8 mg/dL (8-23); Calcium 8.3 mg/dL (8.5-10.5); Carbon Dioxide 35 mmol/L (22-29); Chloride 98 mmol/L (98-107); Globulin 2.8 g/dL (1.3-4.6); Glomerular Filtration Rate 298.2 mL/min (90-130); Glucose 104 mg/dL (65-115); Magnesium 1.3 mg/dL (1.7-2.3); NT Pro B Type Natriuretic Pept 2940 pg/mL (0-125); Osmolality Calculated 285 mOsm/kg (285-295); Phosphorus 1.8 mg/dL (2.5-4.5); Potassium 3.8 mmol/L (3.5-5.1); Sodium 138 mmol/L (136-145); Total Bilirubin 0.8 mg/dL (0.15-1.2); Total Protein 5.2 g/dL (6.6-8.7)
--- NOTE | 2020-07-24 07:39 | PC.NURSE ---
late entry at 1115 patient's ativan and oxy ir in the aug. notified Dr George. Per Dr George, patient is very somnolent. Did not receive orders for ativan or oxy ir.
[2020-07-24] MEDS: budesonide 0.5 mg/2 mL Neb INHALATION ×2 (07:46→21:06)
--- NOTE | 2020-07-24 07:58 | PC.NURSE ---
patient stated he needs to have bowel movement. Staff went in room to assist patient to BSC and patient refused to let staff assist him to BCS, patient said no you young girls will not help me, I will shit the bed. Sustainability Project Manager explained we are happy to help him, Patient said no, just give me my breakfast, I'm ready to eat. Try provided to patient as requested.
--- NOTE | 2020-07-24 08:14 | PC.NURSE ---
Rcvd order from Dr George for 1:1 sitter. proposal writer put order in for 1:1 sitter.
[2020-07-24] MEDS: magnesium sulfate premix 4 GM/100 ML PREMIX IV (08:53)
[2020-07-24] MEDS: predniSONE 5 mg Tablet PO (08:54)
[2020-07-24] MEDS: sennosides-docusate Tablet 2 TAB PO ×2 (08:54→18:16)
[2020-07-24] MEDS: famotidine 20 mg Tablet PO ×2 (08:54→18:16)
[2020-07-24] MEDS: fluconazole 100 mg Tablet PO (08:55)
[2020-07-24] MEDS: amlodipine 10 mg Tablet PO (08:55)
[2020-07-24] MEDS: metoprolol tartrate 25 mg Tablet PO ×2 (08:55→21:58)
[2020-07-24] MEDS: losartan 50 mg Tablet 25 MG PO (08:55)
--- NOTE | 2020-07-24 09:20 | PC.NURSE ---
at time of assessment patient is calm and cooperative. his is was on the phone, and voicing concerns about pain medications. Concerns about pain medications were addressed with Dr. George.
--- NOTE | 2020-07-24 10:27 | P.PN_ITS ---
Subjective Subjective: Interval history: Patient was examined yesterday afternoon, he is much more alert, awake, follows commands, did have episodes of agitation, refused his head CT and his carotid artery ultrasound, all narcotic medications have been held This morning patient was examined, he sitting up in bed, nursing staff at bedside, he is much more alert, awake, follows commands, he asked for his pain medications, his son is currently on the phone, and I was able to speak to him, I advised that patient has a high risk of respiratory failure and recurrent intubation on high doses of narcotic medications, at home he takes morphine 30 mg tab 3 times daily, OxyContin 60 mg tab twice daily, has a pain pump, he has not received these medications since the hospital admission, yesterday he did receive oxycodone 15 mg, and that seemed to cause significant somnolence, will have to work with the dosing and treat his pain, which at times will be difficult, son voiced understanding, all questions answered, son is adamant about bringing him home Vitals/I&O/Wt Last Vital Signs Temp 98.5 F 07/24/20 04:00 Pulse 88 07/24/20 08:00 Resp 17 07/24/20 08:00 BP 131/77 07/24/20 08:00 Pulse Ox 90 07/24/20 08:00 07/23/20 07/24/20 07/24/20 22:59 06:59 14:59 Output Total 750 / 750 700 / 1450 Balance -750 / 70 -700 / -630 Weight last 48 hrs Weight 110.314 kg Weight 110.28 kg Physical Exam Const: COMMON NORMALS: no acute distress ORIENTATION/CONSCIOUSNESS: Yes awake, Yes oriented to person and Yes oriented to place; not oriented to time HENMT: COMMON NORMALS: normocephalic HEAD & SCALP: normocephalic Neck/C-Spine: COMMON NORMALS: no JVD Resp: COMMON NORMALS: normal respiratory effort, No retractions, No use of accessory muscles and clear to auscultation bilaterally AUSCULTATION: clear to auscultation bilaterally Cardio: COMMON NORMALS: no JVD, regular rate, regular rhythm, S1 normal heart sound present and S2 normal heart sound present RATE: regular rate RHYTHM: regular rhythm HEART SOUNDS: S1 normal heart sound present and S2 normal heart sound present GI: COMMON NORMALS: Normal to inspection, nondistended, normoactive bowel sounds present, Soft to palpation, non-tender, No hepatosplenomegaly present, no masses and no bruits PALPATION: Yes Soft to palpation and Yes No hepatosplenomegaly present Extremity: COMMON NORMALS: capillary refill normal, no clubbing, cyanosis or edema, no calf tenderness and no pedal edema Neuro: SENSORIUM/ORIENTATION: Yes oriented to person, Yes oriented to place and No oriented to time Psych: COMMON NORMALS: mental status grossly normal Urinary Catheter Management^: Ventura: Cath Placed During This Visit: yes, but has since been removed by the nurse Reason for Continuing Indwelling Catheter: Acute Urinary Retention or Obstruction Urinary Catheter Date of Insertion: 07/22/20 Urinary Catheter Time of Insertion: 11:35 Date Urinary Catheter Removed: 07/18/20 Time Urinary Catheter Discontinued: 10:19 Data : 07/24/20 05:25 07/24/20 05:25 A&P Assessment and plan (1) Altered mental status: -Likely multifactorial a component of hypercarbia, narcotics, Ativan, Ambien -Mentation has significantly improved -BiPAP schedule during the night -Difficult to do further imaging as patient refuses CT of the head, carotid artery ultrasound -Reduce dose of oxycodone down to 10 mg IR every 4 hours as needed, monitor mentation and respiratory status closely -Continue to monitor mentation -Likely discharge the next 24 hours Status: Acute (2) Acute respiratory failure with hypoxia and hypercapnia: Multifactorial including COPD pneumonia Has finished Primaxin BiPAP schedule during the night, as needed during the day Modified diet, aspiration precautions Continue prednisone inhalers Status: Acute (3) Acute renal failure: Improved Status: Acute Qualifiers: Acute renal failure type: with acute tubular necrosis Qualified Code(s): N17.0 - Acute kidney failure with tubular necrosis (4) Left lower lobe pneumonia: Off antibiotics Status: Acute (5) Elevated troponin: no chest pain Status: Acute Additional A&P Information Left lower extremity cellulitis, finished IV antibiotic treatment Cardiomyopathy, EF of 30% mildly Work right now thrush-fluconazole Thrombocytopenia- monitor CBC urinary retention Ventura in place DVT prophylaxis, fondaparinux Full: Await case management for assistance and placement Attestations Medical Necessity Statement*: Patient requires hospitalization for acute hypercarbic respiratory failure, CHF, left lower lobe pneumonia, now with altered mentation likely secondary to pain medications, hypercarbia, likely discharge in the next 24 to 48 hours Coding Level of Care Code Acute Home Stereo Equipment Installer for Chg Fwd Diagnoses Altered mental status R41.82 Acute respiratory failure with hypoxia and hypercapnia J96.01; J96.02 Acute renal failure N17.0 Acute renal failure type: with acute tubular necrosis Left lower lobe pneumonia J18.9 Elevated troponin R77.8
--- NOTE | 2020-07-24 10:33 | CT_ITS ---
WS: [id number] CT HEAD TECHNIQUE: Noncontrast CT of the head obtained from the skullbase to the vertex. CLINICAL INFORMATION: ams COMPARISON: July 05, 2020 DLP: 1987.[address] scans at [facility] use at least one of these dose optimization techniques: automat ed exposure control; mA and/or kV adjustment per patient size (includes targeted exams where dose is matched to clinical indication); or iterative reconstruction. FINDINGS: No evidence of intracranial hemorrhage or mass effect. Ventricular system and basal cisterns are silveira nt. Mild small vessel changes with mild parenchymal volume loss. No extra-axial fluid collections. No evidence of mass or mass effect. Normal newman-white differentiation. Paranasal sinuses and mastoid air cells are well aerated. .Normal visualized soft tissues. CT/CT head wo con* [id number] IMPRESSION: 1. No evidence of intracranial hemorrhage or mass effect. 2. No acute intracranial findings.
[2020-07-24] MEDS: fondaparinux 2.5 mg/0.5 mL Syringe SUBCUT (10:36)
--- NOTE | 2020-07-24 11:04 | PC.NURSE ---
patient off floor for CT.
--- NOTE | 2020-07-24 11:42 | PC.NURSE ---
patient returned to room from CT. veterinary surgery technologist came to room, and patient was getting restless and requesting to get out of the bed. ultrasound stated they will return. pt redirected.
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
--- NOTE | 2020-07-24 18:32 | PC.NURSE ---
Called HOME to arrange set up of medical equipment. Spoke to Andrea who said it would be about 45 minutes before he was able to leave HOME to deliver equipment.
--- NOTE | 2020-07-24 20:17 | PC.NURSE ---
Toyin set up with Janina at [facility], [place]. Trip number [id number].
[2020-07-24] MEDS: oxyCODONE 5 mg IR Tab/Cap 10 MG PO (22:26)
--- NOTE | 2020-07-24 22:50 | PC.NURSE ---
PICC Line: PICC removed by by contract technical writer, catheter in tact. Small amount of blood noted and pressure dressing was applied. Ventura removed by CHUCKY Saez. EMS on site to transfer pt home, waiting and HOME has already delivered all equipment needed.
--- NOTE | 2020-07-24 22:59 | PC.NURSE ---
Discharge: Laney Gray, head charger nurse on day shift stated that Dr. George came out of pt room late in the afternoon and stated that the pt was leaving today and not to call him anymore regarding this patient. Physician never put in discharge orders so freelance writer placed orders.
--- NOTE | 2020-07-25 00:11 | PC.NURSE ---
DISCHARGE NOTE: CONTACTED AFTER PATIENT LEFT VIA EMS AND NOTIFIED OF DISCHARGE PLAN. SHE WAS INFORMED THAT THE DISCHARGE PAPERS MAY NOT HAVE BEEN IN PACKET GIVEN TO EMS TO PROVIDE TO HER. CHARGE NURSE KINZA HERNANDEZ, OFFERED TO PRINT AND DELIVER/MAIL THEM TO HER, TO WHICH SHE REFUSED. THIS NURSE THOROUGHLY DISCUSSED THE CHANGES TO MEDICATIONS SENT TO PHARMACY AND APPOINTMENT DATES AND TIMES PROVIDED. THE STATED HE CAN RECOMEND ALL HE WANTS, WE WILL CONTINUE HIS MEDICATIONS THEY WERE BEFORE. HIS DOCTOR KNOWS WHAT HE TAKES. THE DENIES THE DESIRE TO PRESERVATIVE FILLER MACHINE OPERATOR THE MEDICATIONS SENT TO THE PHARMACY. DENIES ANY QUESTIONS AT THIS TIME AND UNDERSTANDS TO CALL WITH ANY QUESTIONS THAT ARISE.
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
[2020-07-25 00:54] VITALS: RESP 21
--- NOTE | 2020-07-30 09:09 | PC.NURSE ---
patient's Kelly called and said patient's antibiotics was not sent to pharmacy. credit underwriter looked at discharge and antibiotics were discontinued. patient's number is [phone].
--- NOTE | 2020-09-05 12:37 | PC.SOCIAL ---
Verbal order entered for positive pressure humidifier for BIPAP. [employer] pre cert obtained for this and the Bipap. Sent information to [facility] at [facility]. Confirmation received that fax was sent successfully.
== END 2020-07-24 22:45 | disposition home or self-care (01) | DRG 870 ==
LOC: ER 16:34 → ICU 18:06 → MEDSURG 07-18 15:45
PROVIDERS: Internal Medicine; Internal Medicine Critical Care Medicine; Internal Medicine Nephrology; Admitting Provider Hospitalist; Emergency Provider Family Medicine; Visit Provider Family Medicine
DX: A41.9 Sepsis, unspecified organism (principal); I50.21 Acute systolic (congestive) heart failure; J96.22 Acute and chronic respiratory failure with hypercapnia; J96.21 Acute and chronic respiratory failure with hypoxia; N17.0 Acute kidney failure with tubular necrosis; I21.A1 Myocardial infarction type 2; G93.41 Metabolic encephalopathy; L03.116 Cellulitis of left lower limb; E87.1 Hypo-osmolality and hyponatremia; E87.3 Alkalosis; M62.82 Rhabdomyolysis; F11.23 Opioid dependence with withdrawal; B37.0 Candidal stomatitis; J43.9 Emphysema, unspecified; Z99.81 Dependence on supplemental oxygen; G47.33 Obstructive sleep apnea (adult) (pediatric); I11.0 Hypertensive heart disease with heart failure; I73.9 Peripheral vascular disease, unspecified; E78.2 Mixed hyperlipidemia; G62.9 Polyneuropathy, unspecified; K21.9 Gastro-esophageal reflux disease without esophagitis; Z85.038 Personal history of other malignant neoplasm of large intestine; Z90.49 Acquired absence of other specified parts of digestive tract; C32.0 Malignant neoplasm of glottis; Z92.21 Personal history of antineoplastic chemotherapy; Z92.3 Personal history of irradiation; I95.9 Hypotension, unspecified; Z87.891 Personal history of nicotine dependence; G89.29 Other chronic pain; M54.42 Lumbago with sciatica, left side; M54.41 Lumbago with sciatica, right side; E87.6 Hypokalemia; E83.42 Hypomagnesemia; I87.2 Venous insufficiency (chronic) (peripheral); I27.81 Cor pulmonale (chronic); D69.6 Thrombocytopenia, unspecified; F03.90 Unspecified dementia, unspecified severity, without behavioral disturbance, psychotic disturbance, mood disturbance, and anxiety; L27.1 Localized skin eruption due to drugs and medicaments taken internally; T36.1X5A Adverse effect of cephalosporins and other beta-lactam antibiotics, initial encounter; I48.91 Unspecified atrial fibrillation; T40.2X5A Adverse effect of other opioids, initial encounter; R33.9 Retention of urine, unspecified
CPT/HCPCS: 12345; 31500; 36415; 36569; 36592; 36600; 51702; 70450; 71045; 71275; 74176; 76700; 80048; 80051; 80053; 80074; 80202; 80307; 81001; 82248; 82274; 82330; 82550; 82575; 82803; 82805; 83605; 83735; 83880; 84100; 84145; 84300; 84443; 84484; 85007; 85025; 85027; 85378; 85610; 85730; 86022; 87040; 87070; 87081; 87086; 87205; 87426; 87635; 87641; 87804; 92507; 92523; 92526; 92610; 93005; 93306; 94002; 94003; 94640; 94660; 94799; 96372; 97110; 97161; 97167; 97530; 97535; 99283; A4570; J0131; J0330; J0692; J0743; J1120; J1450; J1630; J1644; J1650; J1652; J1940; J1956; J2020; J2060; J2250; J2270; J2920; J3010; J3370; J3475; J3480; J3490; J7030; J7512; J7626; Q3014; Q9967

== ENCOUNTER → 2020-08-31 11:30 | Outpatient (BNVA) | payer MEDICAID, SELFPAY | PROVIDERS: PCP Nurse Practitioner Family; Visit Provider Nurse Practitioner Family | DX: Z13.6 Encounter for screening for cardiovascular disorders (principal); L03.116 Cellulitis of left lower limb | CPT/HCPCS: 80053; 80061; 85025 ==

== ENCOUNTER → 2020-09-04 15:02 | Outpatient (BNVA) | payer MEDICAID, SELFPAY | PROVIDERS: PCP Nurse Practitioner Family; Visit Provider Nurse Practitioner Family | DX: L03.116 Cellulitis of left lower limb (principal); L89.609 Pressure ulcer of unspecified heel, unspecified stage | CPT/HCPCS: 73610 ==

== ENCOUNTER 2020-09-17 14:42 | Outpatient (CLI) | payer MEDICAID, SELFPAY ==
--- NOTE | 2020-09-17 14:53 | CT_ITS ---
WS: [id number] CT CERVICAL SPINE HISTORY: ANESTHESIA OF THE SKIN TECHNIQUE: Contiguous 2.5 mm axial imaging performed through the entire cervical spine. Sagittal and coronal reformats also performed. All CT scans at [facility] use at least one of these do se optimization techniques: automated exposure control; mA and/or kV adjustment per patient size (inc ludes targeted exams where dose is matched to clinical indication); or iterative reconstruction. DLP: 1011.48 mGycm COMPARISON: None available. Moderate increase in the cervical lordosis. Mild motion artifact at this cervical thoracic junction. Disc space narrowing is mild at C5-6 and C6-7. No fractures are identified. Lateral masses of C1 and C2 are aligned. C2-C3: Small central disc protrusion. Bilateral facet joint arthritis, greatest on the LEFT. C3-C4: Moderate size central disc protrusion resulting in mild central stenosis. C4-C5: Diffuse osteophytic ridging and a central disc protrusion. Mild bilateral facet arthritis. Mil d LEFT foraminal stenosis. C5-C6: Osteophytic ridging with a central disc osteophyte complex. Mild central and LEFT foraminal st enosis. C6-C7: Mild bilateral foraminal narrowing. C7-T1: Mild foraminal narrowing. Moderate amount of atherosclerotic plaque in the extracranial carotid arteries, RIGHT greater than LE FT. Emphysema at the lung apices. CT/CT cervical spin wo con* [id number] IMPRESSION: 1. Increase in the cervical lordosis. 2. Mild central stenosis at C3-4 due to a central disc protrusion. 3. Mild central and LEFT foraminal stenosis at C5-6. 4. Mild LEFT foraminal stenosis at C4-5.
== END 2020-09-17 14:43 | disposition home or self-care (01) ==
LOC: RADWPI 14:44
PROVIDERS: PCP Nurse Practitioner Family; Visit Provider Nurse Practitioner Family
DX: R20.0 Anesthesia of skin (principal); M48.02 Spinal stenosis, cervical region; M50.21 Other cervical disc displacement, high cervical region
CPT/HCPCS: 72125

== ENCOUNTER → 2020-10-24 11:04 | Outpatient (BNVA) | payer MEDICAID, SELFPAY | PROVIDERS: PCP Nurse Practitioner Family; Visit Provider Nurse Practitioner Family | DX: I27.81 Cor pulmonale (chronic) (principal); I42.9 Cardiomyopathy, unspecified; R60.0 Localized edema | CPT/HCPCS: 80048; 83735; 83880 ==

== ENCOUNTER 2020-12-03 09:27 | Outpatient (CLI) | payer MEDICAID, SELFPAY ==
[2020-12-03 10:07] VITALS: BMI 26.2
--- NOTE | 2020-12-03 10:38 | ECG_ITS ---
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 Interpretive Statements NAME OF STUDY: DOBUTAMINE SESTAMIBI STRESS TEST INDICATION: Shortness of breath PROCEDURE: At the baseline, the blood pressure was 124/62 mmHg with a heart rate of 78 bpm. The electrocardiogram showed normal sinus rhythm left axis deviation. Poor anterior R wave progression. Interventricular conduction delay. The dobutamine was infused over a period of 10 minutes 18 seconds. The maximum heart rate obtained was 135 (88% of the maximum predicted heart rate). The blood pressure at that time was 103/55 mmHg. The patient did not have any chest pain or any significant electrocardiogram changes with the dobutamine infusion. The physical examination remained unchanged. No arrhythmias were seen on the monitor. Patient developed intraprocedural shortness of breath that resolved by discharge. The study was terminated due to protocol completion. During the recovery phase, the patient did not have any specific symptoms. The blood pressure at the end of the recovery phase was 117/61 mmHg with a heart rate of 86 beats per minute. PVC couplet and isolated PVCs noted in recovery. CONCLUSION: 1. Normal EKG response to dobutamine infusion infusion. 2. Normal blood pressure and heart rate response. 3. Functional capacity could not be assessed because of pharmacological protocol. 4. Sestamibi/Sestamibi perfusion scan pending; see separate report. Electronically Signed On 12-05-2020 10:28:44 CDT by Kaila Reyes M.D. [id number]
--- NOTE | 2020-12-03 10:38 | NMCV_ITS ---
NM rosalie perf SPECT r/s* [id number] Jaime Olivares Age: 70 Gender: M : 1950 Exam Date: 12/03/2020 10:38 Ordering Phys: Kaila Reyes MD ([email or web address]) Technologist: MARIO Cook Exam Location: [facility] Indications: SHORTNESS OF BREATH STRESS TEST Please see separate stress test report in [facility] for full findings IMAGE PROTOCOL Rest/Stress 1 Dobutamine Day Radiopharmaceutical Dose (mCi) Administration Site Administered by Rest: Tc-99m 10.5 IV MARIO Cope Sestamibi Stress:Tc-99m 32.4 IV MARIO Cope Sestamibi Rest: 03-Dec-2020 60 Discovery 630 Stress: 03-Dec-2020 15 Discovery 630 Radiopharmaceutical was injected at 85 % maximum heart rate. Supine position only as patient was unable to lay prone. SPECT RESULTS Technical Quality: Good Raw Data Analysis: Normal Image Corrections: No attenuation or motion correction applied Summed Stress Score: 9 Summed Rest Score: 12 Summed Difference Score: 3 PERFUSION FINDINGS Medium sized perfusion abnormality of moderate severity of basal to apical inferior, mid inferolateral, apical lateral, mid anteroseptal and apical septal solitario on rest with no reversibility on stress images. FUNCTIONAL RESULTS (calculated via Gated SPECT) Stress Image LV EF (%): 65 Stress EDV (mL):98 TID: 0.9 Stress ESV (mL):34 FUNCTIONAL FINDINGS: The left ventricle is normal in size. Transient Ischemia Dilatation of 0.9. There is normal left ventricular systolic function. The left ventricular ejection fraction is normal with a value of 65%. There is normal left ventricular wall thickening with no regional wall abnormality. Normal end diastolic and end systolic volumes. IMPRESSIONS 1. Medium sized predominantly fixed perfusion abnormality of moderate severity of basal to apical inferior, mid inferolateral, apical lateral, mid anteroseptal and apical septal solitario. 2. This may represent old myocardial infarction in right coronary artery/circumflex artery territory or attenuation artifact. 3. Overall left ventricular systolic function is normal without regional wall motion abnormalities. 4. The left ventricular ejection fraction is normal with a value of 65%. 5. No significant coronary ischemia based on this study. Kaila Reyes MD (Electronically Signed) Final Date: 04 December 2020 20:46 S
[2020-12-03] MEDS: DOBUTtamine 200 MG in sodium chloride 0.9% 34 ML 14 MG IV (12:03)
[2020-12-03] MEDS: atropine 0.1 mg/mL Syr 10 mL 0.5 MG IVP (12:12)
[2020-12-03 12:27] VITALS: BP 117/61; PULSE 96
== END 2020-12-03 09:28 | disposition home or self-care (01) ==
PROVIDERS: PCP Nurse Practitioner Family; Visit Provider Internal Medicine Cardiovascular Disease
DX: I50.9 Heart failure, unspecified (principal); R06.02 Shortness of breath
CPT/HCPCS: 78452; 93017; A9500; J0461; J1250; J3490; J7050

== ENCOUNTER 2021-01-16 08:48 | Outpatient (CLI) | payer MEDICAID, SELFPAY ==
--- NOTE | 2021-01-16 09:04 | CT_ITS ---
WS: [id number] CT NECK TECHNIQUE: Contrast-enhanced CT of the neck with coronal and sagittal reformatted images. CLINICAL INFORMATION: MALIGNANT NEOPLASM OF GLOTTIS, CHRONIC LARYNGITIS COMPARISON: CT neck November 06, 2017 DLP: 1397.[address] scans at [facility] use at least one of these dose optimization techniques: automat ed exposure control; mA and/or kV adjustment per patient size (includes targeted exams where dose is matched to clinical indication); or iterative reconstruction. FINDINGS: Normal parotid glands. Normal submandibular glands. Tongue base appears normal. Normal posterior naso pharynx. Normal vallecula and parapharyngeal fat. Normal epiglottis. Normal piriform sinuses. No evid ence of supraglottic or glottic mass. Normal vocal cords. No cervical lymphadenopathy. Moderate emphysematous changes in the lung apices. C arotid bulb calcification. Mastoid air cells and paranasal sinuses are well aerated. Moderate spondyl itic changes cervical spine. Mild compression superior endplate T2 appears new since the cervical spi ne CT September 17, 2020.. CT/CT neck w con* [id number] IMPRESSION: 1. No evidence of supraglottic or glottic mass. Normal vallecula and piriform sinuses. 2. Normal subglottic airway. 3. No cervical lymphadenopathy. 4. Normal salivary glands. 5. Mild compression superior endplate T2 appears new since the cervical spine CT September 17, 2020. No retropulsion.
--- NOTE | 2021-01-16 09:05 | FL_ITS ---
WS: [id number] ESOPHAGRAM CLINICAL INFORMATION: MALIGNANT NEOPLASM OF GLOTTIS, CHRONIC LARYNGITIS, DYSPHONIA COMPARISON: None. Examination could not be adequately performed due to patient's difficulty standing and marked kyphosi s. Diagnostic images were not obtained. Small amount of barium was ingested in attempt to obtain imag es. Fluoroscopy time: 0.2 minutes.
[2021-01-16 09:37] LABS: Blood Urea Nitrogen 16 mg/dL (8-23); Glomerular Filtration Rate 95.8 mL/min (90-130)
[2021-01-16] MEDS: iohexol 300 mg/mL 100 mL Btl IV (09:49)
== END 2021-01-16 08:49 | disposition home or self-care (01) ==
PROVIDERS: PCP Nurse Practitioner Family; Visit Provider Specialist
DX: C32.0 Malignant neoplasm of glottis (principal); J37.0 Chronic laryngitis; R49.0 Dysphonia; S22.029A Unspecified fracture of second thoracic vertebra, initial encounter for closed fracture; X58.XXXA Exposure to other specified factors, initial encounter
CPT/HCPCS: 70491; 74220; 82565; 84520; Q9967

== ENCOUNTER → 2021-04-19 11:30 | Outpatient (BNVA) | payer MEDICAID, SELFPAY | PROVIDERS: PCP Nurse Practitioner Family; Visit Provider Nurse Practitioner Family | DX: J44.9 Chronic obstructive pulmonary disease, unspecified (principal); J96.11 Chronic respiratory failure with hypoxia; J96.12 Chronic respiratory failure with hypercapnia; R07.89 Other chest pain | CPT/HCPCS: 71046; 80053; 85025 ==

== ENCOUNTER 2021-04-22 13:56 | Outpatient (CLI) | payer MEDICAID, SELFPAY ==
--- NOTE | 2021-04-22 14:00 | XR_ITS ---
WS: [id number] PROCEDURE: XR chest 2V* [id number] CLINICAL INFORMATION: J44.9 - Chronic obstructive pulmonary disease, unspecified COMPARISON: None. FINDINGS: Improved inspiration today. Heart: Cardiomegaly. Aortic calcification. Lungs: Moderate chronic emphysematous changes. No focal pneumonia. Chronic right rib fractures with c allus formation. Small right pleural effusion or pleural thickening right lower lobe. Slight right ba silar atelectasis. Bones: Moderate thoracic kyphosis. Chronic anterior wedging in the mid thoracic spine. XR/XR chest 2V* [id number] IMPRESSION: 1. Chronic emphysematous changes. No focal pneumonia. 2. Small right pleural effusion or pleural thickening with slight right basila r atelectasis.. 3. Stable cardiomegaly. 4. Moderate thoracic kyphosis.
== END 2021-04-22 13:57 | disposition home or self-care (01) ==
PROVIDERS: PCP Nurse Practitioner Family; Visit Provider Nurse Practitioner Family
DX: J44.9 Chronic obstructive pulmonary disease, unspecified (principal); J96.11 Chronic respiratory failure with hypoxia; J96.12 Chronic respiratory failure with hypercapnia; R07.89 Other chest pain; R91.8 Other nonspecific abnormal finding of lung field; J90 Pleural effusion, not elsewhere classified; I51.7 Cardiomegaly; M40.204 Unspecified kyphosis, thoracic region
CPT/HCPCS: 71046

== ENCOUNTER 2021-04-26 12:23 | Emergency (ER) | payer MEDICAID, SELFPAY ==
[2021-04-26 13:07] VITALS: BP 142/73; PULSE 66; RESP 24; TEMP 36.3; O2SAT 99; BMI 27.5
--- NOTE | 2021-04-26 13:11 | XR_ITS ---
WS: [id number] Portable AP upright chest, 04/26/2021 Clinical Data: dyspnea/cough Comparison: PA and lateral chest, 04/22/2021. Findings: No nodules, masses or effusions are seen. There is a right pleural reaction. The heart is a t the upper limits of normal. The aortic arch and descending thoracic aorta show tortuosity. The diap hragms are flattened. There is a levoscoliosis of the thoracic spine. There are old right rib fractur es. There is an orthopedic anchor in the right humeral head. XR/XR chest 1V portable [id number] Impression: 1. Atherosclerosis. 2. Hyperinflation.
--- NOTE | 2021-04-26 13:11 | ECG_ITS ---
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 Measurements Intervals [place] Rate: 59 P: 60 MD: 184 QRS: -36 QRSD: 97 T: 44 QT: 404 QTc: 403 Interpretive Statements SINUS BRADYCARDIA LEFT AXIS DEVIATION [QRS AXIS < -30] Compared to ECG 07/06/2020 15:26:38 Left-axis deviation now present Sinus rhythm no longer present Right bundle-branch block no longer present Myocardial infarct finding no longer present Electronically Signed On 04-26-2021 19:45:22 LIMB DRIVER by Mukul Don M.D. [email or web address]
--- NOTE | 2021-04-26 13:45 | W.ED.SOB ---
HPI - SOB/Dyspnea General: Chief Complaint: Shortness of Breath/Dyspnea Stated Complaint: DIFF BREATHING Time Seen by Provider: 04/26/21 13:03 History of Present Illness: HPI Narrative: 71-year-old male with a history of COPD is chronically on oxygen comes in complaining of increasing shortness of breath and cough. He is currently on steroids as well as doxycycline. He has been using nebulizers regularly. He states he had a chest x-ray a few days ago and is advised it was questionable and needed a follow-up chest x-ray. He did get a follow-up chest x-ray on the eighth which actually looks like it was clear then the previous and then did another chest x-ray is being done today. MD elicited complaint: shortness of breath and cough Pertinent past history: COPD Onset (ago): minute(s) Timing: constant Severity: mild Exacerbating factors: exertion and coughing Relieving factors: nothing Known history of: COPD Associated symptoms: Reports cough; Deny abdominal pain, chest congestion, chest pain, diaphoresis, dizziness, extremity pain, fever(s), hemoptysis, lightheadedness, myalgias, nausea, orthopnea, palpitations, paresthesias, polydipsia, polyuria, rash, sense of impending doom, syncope or vomiting Treatment prior to arrival: oxygen, bronchodilator and other (Steroids and antibiotics) Review of Systems Const: Denies: fever(s) or diaphoresis ENMT: Denies: throat pain, ear or mastoid pain, nasal discharge or nasal congestion Card: Denies: chest pain, palpitations, lightheadedness, syncope or orthopnea Resp: Denies: hemoptysis or chest congestion GI: Denies: abdominal pain, nausea or vomiting : Denies: flank pain, dysuria, urinary frequency or urinary urgency Musc: Denies: extremity pain Skin/Breast: Denies: rash or pruritus Neuro: Denies: dizziness Endo: Denies: polyuria or polydipsia PFS ED PFSH: Medical History (Updated 04/26/21 @ 15:08 by Samir Hassan DO) Acquired bilateral hammer toes Acute diverticulitis Bee sting allergy Bilateral bunions Bulging lumbar disc Chronic bilateral low back pain Chronic erythematous candidosis Chronic low back pain Chronic nausea Chronic respiratory failure with hypoxia COPD (chronic obstructive pulmonary disease) Degenerative disc disease Dysphagia, unspecified Emphysema, unspecified GERD (gastroesophageal reflux disease) History of colon cancer Hypersomnia Lesion of true vocal cord Lower extremity edema Mixed hyperlipidemia Nicotine dependence, cigarettes, uncomplicated Nocturia Onychomycosis MANISH (obstructive sleep apnea) Other specified joint disorders, right shoulder PAD (peripheral artery disease) Polyneuropathy, unspecified Sebaceous cyst of scrotum Segmental and somatic dysfunction of rib cage Blanco-Isaac syndrome Vasomotor rhinitis Venous reflux Surgical History H/O foot surgery H/O hernia repair History of back surgery History of cholecystectomy History of esophagogastroduodenoscopy (EGD) History of partial colectomy Family History Mother , Age 73 Hodgkin disease Cancer Father , Age 67 Stroke Social History Smoking and tobacco status: current every day smoker cigarettes [ Other cigarette details: 2019PD x 50 Years ] Quit status (tobacco): considering quitting Second hand smoke exposure: Yes Smoking risk assessment/counseling performed?: Yes Alcohol intake: never Desire information about alcohol rehabilitation?: No Counseling given: No Desire information about substance/drug rehabilitation?: No Counseling given: Yes Lives independently: Yes Household members: spouse Marital status: Highest education level completed: Some College, No Degree service: No Current occupational status: retired History of recent travel: No Current gender identity: Male Physical Exam Const: COMMON NORMALS: no acute distress GENERAL APPEARANCE: cooperative and comfortable ORIENTATION/CONSCIOUSNESS: Yes awake, Yes oriented to person, Yes oriented to place and Yes oriented to time HENMT: COMMON NORMALS: normocephalic, atraumatic and hearing grossly normal bilaterally HEAD & SCALP: normocephalic and atraumatic Resp: AUSCULTATION: rhonchi and wheezes Cardio: COMMON NORMALS: regular rate, regular rhythm and No murmurs present (Cardio) RATE: regular rate RHYTHM: regular rhythm GI: COMMON NORMALS: Soft to palpation and No hepatosplenomegaly present AUSCULTATION: Yes normoactive bowel sounds PALPATION: Yes Soft to palpation, No Tenderness to palpation present (GI), No Guarding due to palpation present (GI) and Yes No hepatosplenomegaly present Extremity: COMMON NORMALS: normal to inspection, capillary refill normal, no clubbing, cyanosis or edema, no calf tenderness and no pedal edema Neuro: SENSORIUM/ORIENTATION: Yes oriented to person, Yes oriented to place and Yes oriented to time Skin: COMMON NORMALS: no rashes or lesions noted GENERAL SKIN EXAM: no rashes or lesions noted Course Vital Signs: Vital signs: Vital Signs Temperature 97.4 F L 04/26/21 13:07 Pulse Rate 66 04/26/21 13:07 Respiratory Rate 24 H 04/26/21 13:07 Blood Pressure 142/73 04/26/21 13:07 Pulse Oximetry 99 04/26/21 13:07 MDM - SOB/Dyspnea MDM Narrative: Medical decision making narrative: Reviewed CXR with patient. does not show any worsening. Would recommend he continue the steroids and antibiotics. Continue to use albuterol as needed patient states he is feeling better. Return if he has problems. Lab Data: Labs: Lab Results 04/26/21 04/26/21 04/26/21 13:54 13:54 13:54 WBC 14.8 10^3/uL H 10 ^3/uL (4.0-10.0) RBC 4.27 10^6/uL 10^6 /uL (4.1-5.3) Hgb 12.8 g/dL g/dL (11.7-16.6) Hct 40.6 % L % (42.0-52.0) MCV 95.1 fl H fl (80-94) MCH 30.0 pg pg (28.0-34.0) MCHC 31.5 g/dL g/dL (30.0-36.0) RDW 13.2 % % (12.1-15.1) Plt Count 172 10^3/cmm 10^3 /cmm (130-400) MPV 10.4 fL fL (7.4-10.4) Neut % (Auto) 77.6 % % Lymph % (Auto) 14.7 % % [place] % (Auto) 5.7 % % Eos % (Auto) 0.9 % % Baso % (Auto) 0.5 % % Neut # (Auto) 11.48 10^3/uL H 1 0^3/uL (1.8-7.7) Lymph # (Auto) 2.2 10^3/uL 10^3/ uL (0.8-4.8) [place] # (Auto) 0.9 10^3/uL 10^3/ uL (0.2-0.9) Eos # (Auto) 0.1 10^3/uL 10^3/ uL (0.0-0.8) Baso # (Auto) 0.1 10^3/uL 10^3/ uL (0.0-0.1) Nucleated RBC % (a uto) 0 % % Nucleated RBCs # 0.0 /100WBC /100W BC Sodium 138 mmol/L mmol/L (136-145) Potassium 3.7 mmol/L mmol/L (3.5-5.1) Chloride 98 mmol/L mmol/L (98-107) Carbon Dioxide 32 mmol/L H mmol/ L (22-29) Anion Gap 11.7 (5-19) BUN 15 mg/dL mg/dL (8-23) Creatinine 0.5 mg/dL L mg/dL (0.7-1.2) GFR Calculation 164.9 mL/min H mL /min (90-130) Glucose 83 mg/dL mg/dL (65-115) Calculated Osmolal ity 286 mOsm/kg mOsm/ kg (285-295) Calcium 8.6 mg/dL mg/dL (8.5-10.5) Total Bilirubin 0.6 mg/dL mg/dL (0.15-1.2) AST 7 U/L U/L (0-40) ALT < 5 U/L U/L (0-41) Alkaline Phosphata se 85 IU/L IU/L (40-130) Troponin T Baselin e 38 ng/L H ng/L (0-15) Total Protein 6.0 g/dL L g/dL (6.6-8.7) Albumin 3.8 g/dL g/dL (3.5-5.2) Globulin 2.2 g/dL g/dL (1.3-4.6) Discharge Plan Discharge Patient Disposition: Home Clinical Impression: Chronic respiratory failure with hypoxia and hypercapnia, COPD exacerbation Condition: Stable Prescriptions: No Action finasteride [Proscar] 5 mg tablet 5 mg PO DAILY 30 Days Qty: 30 RF: 2 citalopram 40 mg tablet 40 mg PO DAILY 30 Days Qty: 30 RF: 5 doxycycline hyclate 100 mg capsule 100 mg PO BID 10 Days Qty: 20 RF: 0 prednisone 20 mg tablet 20 mg PO BID Qty: 10 RF: 0 albuterol sulfate 2.5 mg /3 mL (0.083 %) solution for nebulization 2.5 mg INHALATION QID PRN (Reason: Shortness Of Breath) RF: 0 butenafine [Lotrimin Ultra] 1 % cream 1 applic TOPICAL BID PRN (Reason: Allergic Reaction) RF: 0 epinephrine 0.3 mg/0.3 mL auto-injector 0.3 mg IM ONCE RF: 0 Restasis MultiDose 0.05 % drops 1 drop ophthalmic (eye) Q12H RF: 0 mupirocin 2 % ointment 1 applic TOPICAL BID Qty: 22 RF: 2 levocetirizine [Xyzal] 5 mg tablet 5 mg PO DAILY RF: 0 (DME) walker with seat /wheels See Rx Instructions .Route .MEDSUPPLY Qty: 1 RF: 0 carbamide peroxide [Debrox] 6.5 % drops 10 drop EAR-BOTH DAILY 4 Days Qty: 30 RF: 0 albuterol sulfate [ProAir HFA] 90 mcg/actuation HFA aerosol inhaler See Rx Instructions .ROUTE .COMPLEX Qty: 8.5 RF: 3 budesonide [Pulmicort] 0.5 mg/2 mL suspension for nebulization 0.5 mg INHALATION BID 90 Days Qty: 360 RF: 3 ipratropium-albuterol 0.5 mg-3 mg(2.5 mg base)/3 mL solution for nebulization See Rx Instructions .ROUTE .COMPLEX Qty: 360 RF: 3 diazepam [Valium] 5 mg tablet 5 mg PO BID PRN (Reason: anxiety) Qty: 90 RF: 0 atorvastatin 40 mg tablet 40 mg PO DAILY Qty: 90 RF: 3 aspirin [Adult Aspirin Regimen] 81 mg tablet,delayed release (DR/EC) 81 mg PO DAILY Qty: 90 RF: 1 losartan 25 mg tablet 25 mg PO DAILY Qty: 90 RF: 3 nystatin 100,000 unit/mL suspension 5 ml PO QID 30 Days Qty: 600 RF: 5 montelukast 10 mg tablet See Rx Instructions .ROUTE .COMPLEX Qty: 30 RF: 0 spironolactone 25 mg tablet 25 mg PO DAILY Qty: 30 RF: 3 metoprolol tartrate 25 mg tablet 25 mg PO BID Qty: 60 RF: 5 magnesium L-lactate [Magtab] 84 mg tablet extended release See Rx Instructions .ROUTE .COMPLEX Qty: 30 RF: 5 furosemide 20 mg tablet 40 mg PO BID Qty: 120 RF: 3 potassium chloride 20 mEq tablet extended release 20 meq PO .COMPLEX Qty: 120 RF: 3 MediHoney (honey) 80 % gel 1 applic topical BID 30 Days Qty: 44 RF: 2 prednisone 5 mg tablet See Rx Instructions .ROUTE .COMPLEX Qty: 30 RF: 3 silver sulfadiazine 1 % cream 1 applic topical BID Qty: 25 RF: 0 Lidocaine Viscous 2 % solution See Rx Instructions .ROUTE .COMPLEX Qty: 100 RF: 5 azithromycin 500 mg tablet 500 mg PO .QOD 90 Days Qty: 45 RF: 3 pantoprazole 40 mg tablet,delayed release (DR/EC) See Rx Instructions .ROUTE .COMPLEX Qty: 30 RF: 2 doxycycline hyclate 100 mg tablet 100 mg PO BID 5 Days Qty: 10 RF: 0 prednisone 20 mg tablet 40 mg PO DAILY 5 Days Qty: 10 RF: 0 ondansetron HCl 8 mg tablet 8 mg PO BID PRN (Reason: Nausea And Vomiting) RF: 0 azelastine 137 mcg (0.1 %) aerosol,spray 1 - 2 spray INTRANASAL BID RF: 0 carbamazepine 100 mg capsule, ER multiphase 12 hr 100 mg PO DAILY RF: 0 Narcan 4 mg/actuation spray,non-aerosol 4 mg intranasal Q2M PRN (Reason: opioid overdose) Qty: 2 RF: 0 Discharge Orders: Discharge ED (Routine); Ordered 04/26/21 Ordered By: Samir Hassan Referrals: May Knapp FNP-C [Primary Care Provider] - Discharge Diet: Usual diet Discharge Activity: Increase activity as tolerated Patient Instructions: Opioid Safety Activity Restrictions/Additional Instructions: Continue antibiotics steroids and nebulizers follow-up with your primary care doctor within the next 4 to 5 days if any worsening symptoms return to emergency room. Coding Level of Care Code ED Application Support Engineer for Seymour Fwchris Exam Comprehensive
[2021-04-26 14:03] LABS: Basophils # 0.1 10^3/uL (0.0-0.1); Basophils % 0.5 %; Eosinophils # 0.1 10^3/uL (0.0-0.8); Eosinophils % 0.9 %; Hematocrit 40.6 % (42.0-52.0); Hemoglobin 12.8 g/dL (11.7-16.6); Lymphocytes # 2.2 10^3/uL (0.8-4.8); Lymphocytes % 14.7 %; Mean Corpuscular HGB Conc 31.5 g/dL (30.0-36.0); Mean Corpuscular Volume 95.1 fl (80-94); Mean Platelet Volume 10.4 fL (7.4-10.4); Monocytes # 0.9 10^3/uL (0.2-0.9); Monocytes % 5.7 %; Neutrophils # 11.48 10^3/uL (1.8-7.7); Neutrophils % 77.6 %; Nucleated Red Blood Cells % 0 %; Platelet Count 172 10^3/cmm (130-400); Red Blood Count 4.27 10^6/uL (4.1-5.3); Red Cell Distribution Width 13.2 % (12.1-15.1); White Blood Count 14.8 10^3/uL (4.0-10.0)
[2021-04-26 14:16] LABS: Troponin(5th) Baseline 38 ng/L (0-15)
[2021-04-26 14:18] LABS: Alanine Aminotransferase < 5 U/L (0-41); Albumin Level 3.8 g/dL (3.5-5.2); Alkaline Phosphatase 85 IU/L (40-130); Anion Gap 11.7 (5-19); Aspartate Amino Transferase 7 U/L (0-40); Blood Urea Nitrogen 15 mg/dL (8-23); Calcium 8.6 mg/dL (8.5-10.5); Carbon Dioxide 32 mmol/L (22-29); Chloride 98 mmol/L (98-107); Globulin 2.2 g/dL (1.3-4.6); Glomerular Filtration Rate 164.9 mL/min (90-130); Glucose 83 mg/dL (65-115); Osmolality Calculated 286 mOsm/kg (285-295); Potassium 3.7 mmol/L (3.5-5.1); Sodium 138 mmol/L (136-145); Total Bilirubin 0.6 mg/dL (0.15-1.2)
[2021-04-26 14:24] LABS: Creatinine Clr Calc Pharmacy 111.6968
== END 2021-04-26 15:36 | disposition home or self-care (01) ==
PROVIDERS: Emergency Provider Family Medicine; PCP Nurse Practitioner Family
DX: J44.1 Chronic obstructive pulmonary disease with (acute) exacerbation (principal); J96.12 Chronic respiratory failure with hypercapnia; J96.11 Chronic respiratory failure with hypoxia; Z79.82 Long term (current) use of aspirin; Z85.038 Personal history of other malignant neoplasm of large intestine; E78.2 Mixed hyperlipidemia; F17.210 Nicotine dependence, cigarettes, uncomplicated
CPT/HCPCS: 71045; 80053; 84484; 85025; 93005; 96374; 99283; J2930

== ENCOUNTER 2021-05-07 16:15 | Emergency (ER) | payer MEDICAID, SELFPAY ==
[2021-05-07] VITALS (7 sets, daily range): BP systolic 107–121; BP diastolic 60–77; PULSE 60–104; RESP 21–26; TEMP 36.6; O2SAT 94–98; BMI 27.2
--- NOTE | 2021-05-07 17:08 | CTR_ITS ---
PROCEDURE INFORMATION: Exam: CTA Chest With Contrast Exam date and time: 05/07/2021 5:08 PM Age: 71 years old Clinical indication: Shortness of breath; Prior surgery; Patient HX: HX of colon, skin, and throat cancer; Additional info: Severe R posterior thoracic back pain TECHNIQUE: Imaging protocol: Computed tomographic angiography of the chest with contrast. 3D rendering (Not supervised by radiologist): MIP and/or 3D reconstructed images were created by the technologist. Radiation optimization: All CT scans at this facility use at least one of these dose optimization techniques: automated exposure control; mA and/or kV adjustment per patient size (includes targeted exams where dose is matched to clinical indication); or iterative reconstruction. Contrast material: OMNI 350; Contrast volume: 77 ml; Contrast route: INTRAVENOUS (IV); COMPARISON: CT angio chest PE protcl [id number] 07/08/2020 11:27 AM RADIATION DOSE METRICS: Total DLP (mGy-cm): 639.47 FINDINGS: Tubes, catheters and devices: Spinal stimulator lead noted terminating in the midthoracic spinal canal. Pulmonary arteries: Normal. No pulmonary emboli. Aorta: No aortic aneurysm. No aortic dissection. Lungs: Advanced centrilobular emphysematous changes of the lungs. Linear biapical scarring as well as scarring within the right middle lobe, lingula, and lung bases. Focal area of rounded atelectasis in the medial left lung base containing calcified granulomas is not significantly changed from prior study. No suspicious masses. Pleural spaces: No pneumothorax. No pleural effusion. Heart: Coronary artery calcifications noted. No cardiomegaly. No pericardial effusion. Lymph nodes: Unremarkable. No enlarged lymph nodes. Bones/joints: Generalized osseous demineralization. Multiple old callused right posterior rib fractures again noted. Mild compression deformity of anterior/superior endplate of T6 which appears chronic with an estimated 33% vertebral body height loss, new from most recent comparison. No acute fracture. No aggressive osseous lesion. Soft tissues: Unremarkable. CT/CT angio chest PE protcl [id number] IMPRESSION: 1. Negative for pulmonary embolism or aortic dissection. 2. Chronic appearing mild compression deformity of T6 which is new from most recent comparison. 3. Advanced emphysema. 4. Similar appearance of rounded atelectasis in the medial left lung base. Radiation Dose CTDIVOL = (mGy): DLP = 639.47 (mGy-cm)
--- NOTE | 2021-05-07 17:08 | XRR_ITS ---
PROCEDURE INFORMATION: Exam: XR Chest Exam date and time: 05/07/2021 5:08 PM Age: 71 years old Clinical indication: Dyspnea and shortness of breath TECHNIQUE: Imaging protocol: XR of the chest. Views: 1 view. COMPARISON: CR XR chest 1V portable [id number] 04/26/2021 1:19 PM FINDINGS: Lungs: No consolidation. Pleural spaces: Redemonstrated bilateral costophrenic blunting most likely secondary to bibasilar scarring as opposed to small volume pleural effusions. No pneumothorax. Heart/Mediastinum: Unremarkable. No cardiomegaly. Bones/joints: Redemonstrated multiple old callused posterior right rib fractures. Rotator cuff anchor noted in the right humeral head. XR/XR chest 1V portable [id number] IMPRESSION: No acute findings. Radiation Dose CTDIVOL = (mGy): DLP = (mGy-cm)
--- NOTE | 2021-05-07 17:09 | ECG_ITS ---
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 Measurements Intervals [place] Rate: 71 P: 54 ME: 175 QRS: -52 QRSD: 95 T: 36 QT: 384 QTc: 418 Interpretive Statements SINUS RHYTHM WITH OCCASIONAL SUPRAVENTRICULAR PREMATURE COMPLEXES PATTERN CONSISTENT WITH PULMONARY DISEASE INFERIOR MYOCARDIAL INFARCTION , PROBABLY OLD [40+ ms Q WAVE AND/OR ST/T ABNORMALITY IN II/aVF] Compared to ECG 04/26/2021 13:38:53 Myocardial infarct finding now present Sinus bradycardia no longer present Left-axis deviation no longer present Electronically Signed On 05-08-2021 17:39:29 TRUST MANAGER by Mukul Don M.D. [id number]
[2021-05-07] MEDS: ipratropium-albuterol 3 mL Neb INHALATION ×3 (17:36→17:48)
[2021-05-07 17:50] LABS: Basophils # 0.1 10^3/uL (0.0-0.1); Basophils % 0.7 %; Eosinophils # 0.3 10^3/uL (0.0-0.8); Eosinophils % 1.7 %; Hematocrit 43.7 % (42.0-52.0); Hemoglobin 13.7 g/dL (11.7-16.6); Lymphocytes # 3.1 10^3/uL (0.8-4.8); Lymphocytes % 20.9 %; Mean Corpuscular HGB Conc 31.4 g/dL (30.0-36.0); Mean Corpuscular Volume 95.6 fl (80-94); Mean Platelet Volume 9.3 fL (7.4-10.4); Monocytes # 0.8 10^3/uL (0.2-0.9); Monocytes % 5.5 %; Neutrophils # 10.56 10^3/uL (1.8-7.7); Neutrophils % 70.5 %; Nucleated Red Blood Cells % 0 %; Platelet Count 175 10^3/cmm (130-400); Red Blood Count 4.57 10^6/uL (4.1-5.3); Red Cell Distribution Width 13.2 % (12.1-15.1)
--- NOTE | 2021-05-07 18:10 | PC.NURSE ---
PT REFUSED COVID SWABS STATING I AM FULLY VACCINATED AND DO NOT LEAVE MY HOUSE. I DON'T WANT IT.
[2021-05-07 18:19] LABS: Troponin(5th) Baseline 37 ng/L (0-15)
[2021-05-07 18:26] LABS: Blood Urea Nitrogen 12 mg/dL (8-23); Calcium 8.4 mg/dL (8.5-10.5); Carbon Dioxide 36 mmol/L (22-29); Chloride 95 mmol/L (98-107); Glomerular Filtration Rate 111.8 mL/min (90-130); Glucose 103 mg/dL (65-115); NT Pro B Type Natriuretic Pept 517 pg/mL (0-125); Osmolality Calculated 288 mOsm/kg (285-295); Sodium 139 mmol/L (136-145)
--- NOTE | 2021-05-07 18:28 | W.ED.GENADLT ---
HPI - General Adult General: Chief complaint: Shortness of Breath/Dyspnea Stated complaint: TROUBLE BREATHING/CHEST PAIN/SENT FROM PCP Time Seen by Provider: 05/07/21 16:43 History of Present Illness: HPI narrative: Patient is a 71-year-old gentleman with a history of COPD on 3 L of home oxygen, rustic aorta repair, lung cancer, esophageal cancer who presents the emergency room for evaluation of dyspnea, tenderness and chest pain x10 days. Patient said that over the last 10 days, and his symptoms of chest pain and tightness is progressively worsened. Patient took albuterol 20 minutes prior to arrival and still reports difficulty breathing. Patient says that his oxygen has been not been working. Patient denies a fever/chills, reports upper right back pain that is severe. Patient denies any fever or chills nausea/vomiting, diarrhea, melena hematochezia, abdominal complaints or complaints at this time. Onset: 10 days ago Duration:10 days Location:home Severity:moderate Review of Systems Narrative: Constitutional: No fever, no chills. HEENT: No vision changes CV: +chest pain, no palpitations PULM: no cough, +dyspnea, +wheezing GI: No abdominal pain, no N/V/D. : No dysuria MSKEL: No muscle pain SKIN: No new rashes, no lesions. NEURO: No headache, no focal weakness. HEME: No visible bruises PSYCH: Normal mood PFSH ED PFSH: Medical History (Updated 05/07/21 @ 18:50 by Chino Carrero MD) Acquired bilateral hammer toes Acute diverticulitis Bee sting allergy Bilateral bunions Bulging lumbar disc Chronic bilateral low back pain Chronic erythematous candidosis Chronic low back pain Chronic nausea Chronic respiratory failure with hypoxia COPD (chronic obstructive pulmonary disease) Degenerative disc disease Dysphagia, unspecified Emphysema, unspecified GERD (gastroesophageal reflux disease) History of colon cancer Hypersomnia Lesion of true vocal cord Lower extremity edema Mixed hyperlipidemia Nicotine dependence, cigarettes, uncomplicated Nocturia Onychomycosis MANISH (obstructive sleep apnea) Other specified joint disorders, right shoulder PAD (peripheral artery disease) Polyneuropathy, unspecified Sebaceous cyst of scrotum Segmental and somatic dysfunction of rib cage Blanco-Isaac syndrome Vasomotor rhinitis Venous reflux Surgical History H/O foot surgery H/O hernia repair History of back surgery History of cholecystectomy History of esophagogastroduodenoscopy (EGD) History of partial colectomy Family History Mother , Age 73 Hodgkin disease Cancer Father , Age 67 Stroke Social History Smoking and tobacco status: current every day smoker cigarettes [ Other cigarette details: 2019 x 50 Years ] Quit status (tobacco): considering quitting Second hand smoke exposure: Yes Smoking risk assessment/counseling performed?: Yes Alcohol intake: never Desire information about alcohol rehabilitation?: No Counseling given: No Desire information about substance/drug rehabilitation?: No Counseling given: Yes Lives independently: Yes Household members: spouse Marital status: Highest education level completed: Some College, No Degree service: No Current occupational status: retired History of recent travel: No Current gender identity: Male Physical Exam Narrative: EXAM NARRATIVE: Head: Atraumatic Eyes: PERRL, conjunctiva without injection ENT: Mucous membrane moist NECK: Supple, ROM intact LUNGS: +Decreased breath sounds b/k, +air tightness b/l CV: RRR ABDOMEN: Soft, nontender in all quadrants EXTREMITY: Normal ROM SKIN: No rash or erythema NEURO: Awake and alert, no focal motor deficits PSYCH: Normal mood and affect Course Vital Signs: Vital signs: Vital Signs Temperature 97.8 F 05/07/21 16:22 Pulse Rate 62 05/07/21 20:35 Respiratory Rate 22 H 05/07/21 20:35 Blood Pressure 118/77 05/07/21 20:35 Pulse Oximetry 94 05/07/21 20:35 MDM - General Adult MDM Narrative: Medical decision making narrative: 71-year-old male with a history of end-stage COPD on 3 L oxygen presenting to emergency room with chest pain shortness of breath. On arrival, patient is hemodynamically stable, with ear tightness and wheezing bilaterally. No signs of increased work of breathing. Work-up, CBC, BMP, troponin, EKG, chest x-ray, CTA chest Patient is negative for any acute pneumonia. White count is noted to be 15, likely reactive I do not suspect that this is pneumonia. Patient received 3 breathing treatments minimal treatment improvement in symptoms. I have offered patient further work-up and admission. However at this time, patient declines. Troponin at baseline. Patient given 10mg of valium prior to discharge for insomnia. Continues to hemodynamically stable. Patient was observed in the ED after administering Valium with no signs of respiratory distress. Patient electing to leave AMA. Patient counseled regarding risks of leaving including severe morbidity, brain , hypoxia, arrythmia, , chest pain, or any other unwanted consequences of leaving against medical advice today. Patient verbalizes understanding of the risks and still wishes to leave AMA. Signed AMA paperwork. Patient advised that patient is welcome to return at any time. Was instructed that patient may come back if symptoms continue to persist and that emergent adverse conditions have not fully been ruled out. Patient is A&Ox3 and has capacity and is of sound mind to make decisions. Lab Data: Labs: Lab Results 05/07/21 05/07/21 05/07/21 17:35 17:35 17:35 WBC 15.0 10^3/uL H 10 ^3/uL (4.0-10.0) RBC 4.57 10^6/uL 10^6 /uL (4.1-5.3) Hgb 13.7 g/dL g/dL (11.7-16.6) Hct 43.7 % % (42.0-52.0) MCV 95.6 fl H fl (80-94) MCH 30.0 pg pg (28.0-34.0) MCHC 31.4 g/dL g/dL (30.0-36.0) RDW 13.2 % % (12.1-15.1) Plt Count 175 10^3/cmm 10^3 /cmm (130-400) MPV 9.3 fL fL (7.4-10.4) Neut % (Auto) 70.5 % % Lymph % (Auto) 20.9 % % [place] % (Auto) 5.5 % % Eos % (Auto) 1.7 % % Baso % (Auto) 0.7 % % Neut # (Auto) 10.56 10^3/uL H 1 0^3/uL (1.8-7.7) Lymph # (Auto) 3.1 10^3/uL 10^3/ uL (0.8-4.8) [place] # (Auto) 0.8 10^3/uL 10^3/ uL (0.2-0.9) Eos # (Auto) 0.3 10^3/uL 10^3/ uL (0.0-0.8) Baso # (Auto) 0.1 10^3/uL 10^3/ uL (0.0-0.1) Nucleated RBC % (a uto) 0 % % Nucleated RBCs # 0.0 /100WBC /100W BC Sodium 139 mmol/L mmol/L (136-145) Potassium 4.0 mmol/L mmol/L (3.5-5.1) Chloride 95 mmol/L L mmol/ L (98-107) Carbon Dioxide 36 mmol/L H mmol/ L (22-29) Anion Gap 12.0 (5-19) BUN 12 mg/dL mg/dL (8-23) Creatinine 0.7 mg/dL mg/dL (0.7-1.2) GFR Calculation 111.8 mL/min mL/m in (90-130) Glucose 103 mg/dL mg/dL (65-115) Calculated Osmolal ity 288 mOsm/kg mOsm/ kg (285-295) Calcium 8.4 mg/dL L mg/dL (8.5-10.5) Troponin T Baselin e 37 ng/L H ng/L (0-15) Troponin T 120 Min [place] Troponin T NT-Pro-B Natriuret Pep 517 pg/mL H pg/mL (0-125) 05/07/21 19:40 WBC RBC Hgb Hct MCV MCH MCHC RDW Plt Count MPV Neut % (Auto) Lymph % (Auto) [place] % (Auto) Eos % (Auto) Baso % (Auto) Neut # (Auto) Lymph # (Auto) [place] # (Auto) Eos # (Auto) Baso # (Auto) Nucleated RBC % (a uto) Nucleated RBCs # Sodium Potassium Chloride Carbon Dioxide Anion Gap BUN Creatinine GFR Calculation Glucose Calculated Osmolal ity Calcium Troponin T Baselin e Troponin T 120 Min [place] 36.40 ng/L H ng/L (0-15) [place] Troponin T -0.60 ABS# L ABS# (0-10) NT-Pro-B Natriuret Pep Imaging Data^: Other Imaging: Radiologist's impression: [employer] [address], [place] [address]ODqr ReportSigned Patient: Mira Olivares #: [id number]: 1950cct#:[id number]/Sex: 71 / MADM Date: 05/07/21Loc: ERRoom/Bed:Attending Dr: Ordering Provider/Ordering MD: Chino Carrero MD Date of Service: 05/07/21 Procedure(s): XR chest 1V portable [id number] Accession Number(s): [id number] Report Number: [id number] PROCEDURE INFORMATION: Exam: XR Chest Exam date and time: 05/07/2021 5:08 PM Age: 71 years old Clinical indication: Dyspnea and shortness of breath TECHNIQUE: Imaging protocol: XR of the chest. Views: 1 view. COMPARISON: CR XR chest 1V portable [id number] 04/26/2021 1:19 PM FINDINGS: Lungs: No consolidation. Pleural spaces: Redemonstrated bilateral costophrenic blunting most likely secondary to bibasilar scarring as opposed to small volume pleural effusions. No pneumothorax. Heart/Mediastinum: Unremarkable. No cardiomegaly. Bones/joints: Redemonstrated multiple old callused posterior right rib fractures. Rotator cuff anchor noted in the right humeral head. XR/XR chest 1V portable [id number] IMPRESSION: No acute findings. Radiation Dose CTDIVOL = (mGy): DLP = (mGy-cm) Dictated By:Bryan Herrera DOSigned By:Bryan Herrera DOSigned Date/Time:05/07/21 1759DD/ [address], [place] [address]ML Scan ReportSigned Patient: Miar Olivares #: [id number]: 1950cct#:[id number]/Sex: 71 / MADM Date: 05/07/21Loc: ERRoom/Bed:Attending Dr: Ordering Provider/Ordering MD: Chino Carrero MD Date of Service: 05/07/21 Procedure(s): CT angio chest PE protcl [id number] Accession Number(s): [id number] Report Number: [id number] PROCEDURE INFORMATION: Exam: CTA Chest With Contrast Exam date and time: 05/07/2021 5:08 PM Age: 71 years old Clinical indication: Shortness of breath; Prior surgery; Patient HX: HX of colon, skin, and throat cancer; Additional info: Severe R posterior thoracic back pain TECHNIQUE: Imaging protocol: Computed tomographic angiography of the chest with contrast. 3D rendering (Not supervised by radiologist): MIP and/or 3D reconstructed images were created by the technologist. Radiation optimization: All CT scans at this facility use at least one of these dose optimization techniques: automated exposure control; mA and/or kV adjustment per patient size (includes targeted exams where dose is matched to clinical indication); or iterative reconstruction. Contrast material: OMNI 350; Contrast volume: 77 ml; Contrast route: INTRAVENOUS (IV); COMPARISON: CT angio chest PE protcl [id number] 07/08/2020 11:27 AM RADIATION DOSE METRICS: Total DLP (mGy-cm): 639.47 FINDINGS: Tubes, catheters and devices: Spinal stimulator lead noted terminating in the midthoracic spinal canal. Pulmonary arteries: Normal. No pulmonary emboli. Aorta: No aortic aneurysm. No aortic dissection. Lungs: Advanced centrilobular emphysematous changes of the lungs. Linear biapical scarring as well as scarring within the right middle lobe, lingula, and lung bases. Focal area of rounded atelectasis in the medial left lung base containing calcified granulomas is not significantly changed from prior study. No suspicious masses. Pleural spaces: No pneumothorax. No pleural effusion. Heart: Coronary artery calcifications noted. No cardiomegaly. No pericardial effusion. Lymph nodes: Unremarkable. No enlarged lymph nodes. Bones/joints: Generalized osseous demineralization. Multiple old callused right posterior rib fractures again noted. Mild compression deformity of anterior/superior endplate of T6 which appears chronic with an estimated 33% vertebral body height loss, new from most recent comparison. No acute fracture. No aggressive osseous lesion. Soft tissues: Unremarkable. CT/CT angio chest PE protcl [id number] IMPRESSION: 1. Negative for pulmonary embolism or aortic dissection. 2. Chronic appearing mild compression deformity of T6 which is new from most recent comparison. 3. Advanced emphysema. 4. Similar appearance of rounded atelectasis in the medial left lung base. Radiation Dose CTDIVOL = (mGy): DLP = 639.47 (mGy-cm) Dictated By:Bryan Herrera DOSigned By:Bryan Herrera DOSigned Date/Time:05/07/21 1904DD/ Discharge Plan Discharge Patient Disposition: Left Against Medical Advice Clinical Impression: COPD exacerbation Condition: Stable Prescriptions: No Action finasteride [Proscar] 5 mg tablet 5 mg PO DAILY 30 Days Qty: 30 RF: 2 citalopram 40 mg tablet 40 mg PO DAILY 30 Days Qty: 30 RF: 5 doxycycline hyclate 100 mg capsule 100 mg PO BID 10 Days Qty: 20 RF: 0 prednisone 20 mg tablet 20 mg PO BID Qty: 10 RF: 0 albuterol sulfate 2.5 mg /3 mL (0.083 %) solution for nebulization 2.5 mg INHALATION QID PRN (Reason: Shortness Of Breath) RF: 0 butenafine [Lotrimin Ultra] 1 % cream 1 applic TOPICAL BID PRN (Reason: Allergic Reaction) RF: 0 epinephrine 0.3 mg/0.3 mL auto-injector 0.3 mg IM ONCE RF: 0 Restasis MultiDose 0.05 % drops 1 drop ophthalmic (eye) Q12H RF: 0 mupirocin 2 % ointment 1 applic TOPICAL BID Qty: 22 RF: 2 levocetirizine [Xyzal] 5 mg tablet 5 mg PO DAILY RF: 0 (DME) walker with seat /wheels See Rx Instructions .Route .MEDSUPPLY Qty: 1 RF: 0 carbamide peroxide [Debrox] 6.5 % drops 10 drop EAR-BOTH DAILY 4 Days Qty: 30 RF: 0 albuterol sulfate [ProAir HFA] 90 mcg/actuation HFA aerosol inhaler See Rx Instructions .ROUTE .COMPLEX Qty: 8.5 RF: 3 budesonide [Pulmicort] 0.5 mg/2 mL suspension for nebulization 0.5 mg INHALATION BID 90 Days Qty: 360 RF: 3 ipratropium-albuterol 0.5 mg-3 mg(2.5 mg base)/3 mL solution for nebulization See Rx Instructions .ROUTE .COMPLEX Qty: 360 RF: 3 diazepam [Valium] 5 mg tablet 5 mg PO BID PRN (Reason: anxiety) Qty: 90 RF: 0 atorvastatin 40 mg tablet 40 mg PO DAILY Qty: 90 RF: 3 aspirin [Adult Aspirin Regimen] 81 mg tablet,delayed release (DR/EC) 81 mg PO DAILY Qty: 90 RF: 1 losartan 25 mg tablet 25 mg PO DAILY Qty: 90 RF: 3 nystatin 100,000 unit/mL suspension 5 ml PO QID 30 Days Qty: 600 RF: 5 montelukast 10 mg tablet See Rx Instructions .ROUTE .COMPLEX Qty: 30 RF: 0 spironolactone 25 mg tablet 25 mg PO DAILY Qty: 30 RF: 3 magnesium L-lactate [Magtab] 84 mg tablet extended release See Rx Instructions .ROUTE .COMPLEX Qty: 30 RF: 5 furosemide 20 mg tablet 40 mg PO BID Qty: 120 RF: 3 potassium chloride 20 mEq tablet extended release 20 meq PO .COMPLEX Qty: 120 RF: 3 MediHoney (honey) 80 % gel 1 applic topical BID 30 Days Qty: 44 RF: 2 prednisone 5 mg tablet See Rx Instructions .ROUTE .COMPLEX Qty: 30 RF: 3 silver sulfadiazine 1 % cream 1 applic topical BID Qty: 25 RF: 0 Lidocaine Viscous 2 % solution See Rx Instructions .ROUTE .COMPLEX Qty: 100 RF: 5 azithromycin 500 mg tablet 500 mg PO .QOD 90 Days Qty: 45 RF: 3 pantoprazole 40 mg tablet,delayed release (DR/EC) See Rx Instructions .ROUTE .COMPLEX Qty: 30 RF: 2 doxycycline hyclate 100 mg tablet 100 mg PO BID 5 Days Qty: 10 RF: 0 prednisone 20 mg tablet 40 mg PO DAILY 5 Days Qty: 10 RF: 0 metoprolol tartrate 25 mg tablet 25 mg PO BID Qty: 60 RF: 5 ondansetron HCl 8 mg tablet 8 mg PO BID PRN (Reason: Nausea And Vomiting) RF: 0 azelastine 137 mcg (0.1 %) aerosol,spray 1 - 2 spray INTRANASAL BID RF: 0 carbamazepine 100 mg capsule, ER multiphase 12 hr 100 mg PO DAILY RF: 0 Narcan 4 mg/actuation spray,non-aerosol 4 mg intranasal Q2M PRN (Reason: opioid overdose) Qty: 2 RF: 0 Referrals: May Knapp FNP-C [Primary Care Provider] - Coding Level of Care Code ED Inker for Chg Fwchris
[2021-05-07] MEDS: diazePAM 5 mg Tablet 10 MG PO (20:23)
== END 2021-05-07 20:30 | disposition left against medical advice (07) ==
PROVIDERS: Emergency Provider Emergency Medicine; PCP Nurse Practitioner Family
DX: J44.1 Chronic obstructive pulmonary disease with (acute) exacerbation (principal); Z53.29 Procedure and treatment not carried out because of patient's decision for other reasons
CPT/HCPCS: 71045; 71275; 80048; 83880; 84484; 85025; 93005; 94640; 96374; 99284; J2930; Q9967

== ENCOUNTER 2021-05-25 18:17 | Emergency (ER) | payer MEDICAID, SELFPAY ==
[2021-05-25] VITALS (11 sets, daily range): BP systolic 105–117; BP diastolic 56–84; PULSE 69–102; RESP 15–25; TEMP 36.6; O2SAT 94–100; BMI 27.5
--- NOTE | 2021-05-25 18:38 | XRR_ITS ---
PROCEDURE INFORMATION: Exam: XR Chest Exam date and time: 05/25/2021 6:38 PM Age: 71 years old Clinical indication: Shortness of breath; Additional info: SOB and cp TECHNIQUE: Imaging protocol: XR of the chest. Views: 1 view. COMPARISON: CR (CHEST, ) 05/07/2021 5:21 PM FINDINGS: Lungs: Emphysematous changes. Right lower lobe subsegmental atelectasis versus infiltrate. Pleural spaces: Small right pleural effusion. Heart/Mediastinum: Unremarkable. No cardiomegaly. Bones/joints: Unremarkable. XR/XR chest 1V portable [id number] IMPRESSION: 1. Small right pleural effusion. 2. Emphysematous changes. 3. Right lower lobe subsegmental atelectasis versus infiltrate.
--- NOTE | 2021-05-25 18:39 | ECG_ITS ---
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 Measurements Intervals [place] Rate: 87 P: 62 AL: 179 QRS: -63 QRSD: 106 T: 45 QT: 369 QTc: 445 Interpretive Statements SINUS RHYTHM WITH OCCASIONAL SUPRAVENTRICULAR PREMATURE COMPLEXES LEFT AXIS DEVIATION [QRS AXIS < -30] PATTERN CONSISTENT WITH PULMONARY DISEASE Compared to ECG 05/07/2021 17:16:31 Left-axis deviation now present Myocardial infarct finding no longer present Electronically Signed On 05-26-2021 20:05:08 DRAFTER LANDSCAPE by Lilly Rowell M.D. [id number]
--- NOTE | 2021-05-25 18:52 | ED_ITS ---
Documented by User: SHANDRA Hua 05/26/21 02:50 HPI - Chest Pain General: Chief Complaint: Chest Pain Stated Complaint: Chest pains SOB Time Seen by Provider: 05/25/21 18:41 History of Present Illness: HPI narrative: Patient is a 71-year-old male who comes to the ED with chest pain and shortness of breath. Patient was seen here for same complaint back on May 07. Patient has a past medical history of COPD, anemia, GERD, hyperlipidemia, lung and esophageal cancer. Patient is on 4 L of O2 via nasal cannula at home. Patient symptoms have been going on for the past 3 weeks. Chest pain is described as constant and started originally while at rest. He rates his chest pain currently 10 out of 10. He states that its located in the middle lower chest and radiates to his back. Denies any relieving or worsening factors. He also endorses having some shortness of breath and a cough but no change in his oxygen requirements at home. Patient said he had a cardiac stress test done about a month ago and it came back no rmal. Associated symptoms: Reports dyspnea; Deny abdominal pain, fever(s), nausea, palpitations or vomiting Review of Systems Const: Denies: fever(s), chills or fatigue Eyes: Denies: change in vision or eye discomfort ENMT: Denies: throat pain, odynophagia, nasal discharge or nasal congestion Card: Reports: chest pain; Denies: palpitations, edema, swelling of feet/ankles, dyspnea on exertion or orthopnea Resp: Reports: dyspnea; Denies: productive cough or non-productive cough GI: Denies: abdominal pain, nausea, vomiting, diarrhea, constipation or hematochezia : Denies: flank pain, difficulty urinating, dysuria or hematuria Musc: Denies: neck pain, back pain or extremity swelling Skin/Breast: Denies: rash or new lesions Neuro: Denies: headache(s), numbness in extremities or weakness in extremities PFS ED PFSH: Medical History Acquired bilateral hammer toes Acute diverticulitis Bee sting allergy Bilateral bunions Bulging lumbar disc Chronic bilateral low back pain Chronic erythematous candidosis Chronic low back pain Chronic nausea Chronic respiratory failure with hypoxia COPD (chronic obstructive pulmonary disease) Degenerative disc disease Dysphagia, unspecified Emphysema, unspecified GERD (gastroesophageal reflux disease) History of colon cancer Hypersomnia Lesion of true vocal cord Lower extremity edema Mixed hyperlipidemia Nicotine dependence, cigarettes, uncomplicated Nocturia Onychomycosis MANISH (obstructive sleep apnea) Other specified joint disorders, right shoulder PAD (peripheral artery disease) Polyneuropathy, unspecified Sebaceous cyst of scrotum Segmental and somatic dysfunction of rib cage Blanco-Isaac syndrome Vasomotor rhinitis Venous reflux Surgical History H/O foot surgery H/O hernia repair History of back surgery History of cholecystectomy History of esophagogastroduodenoscopy (EGD) History of partial colectomy Family History Mother , Age 73 Hodgkin disease Cancer Father , Age 67 Stroke Social History Smoking and tobacco status: current every day smoker cigarettes [ Other cigarette details: 2019PD x 50 Years ] Quit status (tobacco): considering quitting Second hand smoke exposure: Yes Smoking risk assessment/counseling performed?: Yes Alcohol intake: never Desire information about alcohol rehabilitation?: No Counseling given: No Desire information about substance/drug rehabilitation?: No Counseling given: Yes Lives independently: Yes Household members: spouse Marital status: Highest education level completed: Some College, No Degree service: No Current occupational status: retired History of recent travel: No Current gender identity: Male Physical Exam Const: COMMON NORMALS: no acute distress, patient oriented x3 and alert GENERAL APPEARANCE: cooperative and comfortable HENMT: COMMON NORMALS: normocephalic HEAD & SCALP: normocephalic MOUTH: Normal oral and palatal mucosa present THROAT: posterior oropharynx normal and uvula midline Eye: COMMON NORMALS: Equal, round and reactive pupils present PUPIL: Yes Equal, round and reactive pupils present Neck/C-Spine: COMMON NORMALS: supple GENERAL: Yes normal visual inspection Resp: COMMON NORMALS: normal respiratory effort, No retractions and No use of accessory muscles EFFORT & INSPECTION: Yes able to speak in complete sentences, No tachypneic, No respiratory distress and No labored AUSCULTATION: wheezes expiratory wheezes and throughout Cardio: COMMON NORMALS: regular rate, regular rhythm, S1 normal heart sound present, S2 normal heart sound present, No gallops present (Cardio), No clicks present (Cardio), No murmurs present (Cardio) and Peripheral pulses 2+ throughout RATE: regular rate RHYTHM: regular rhythm HEART SOUNDS: S1 normal heart sound present and S2 normal heart sound present PERIPHERAL PULSES: Peripheral pulses 2+ throughout GI: COMMON NORMALS: Normal to inspection, nondistended, normoactive bowel sounds present, Soft to palpation, non-tender and no masses PALPATION: Yes Soft to palpation : COMMON NORMALS: Yes no CVA tenderness BLADDER/KIDNEY EXAM: Yes no CVA tenderness Back/Pelvis: COMMON NORMALS: no CVA tenderness Extremity: COMMON NORMALS: normal to inspection and no pedal edema Neuro: COMMON NORMALS: patient oriented x3 and moves all extremities SENSORIUM/ORIENTATION: Yes alert Skin: COMMON NORMALS: no rashes or lesions noted GENERAL SKIN EXAM: no rashes or lesions noted and dry skin Course Reevaluation(s): Reevaluation #1: After patient received some IV morphine his chest pain improved. Time: 21:50 Vital Signs: Vital signs: Vital Signs Temperature 97.8 F 05/25/21 23:44 Pulse Rate 102 H 05/25/21 23:44 Respiratory Rate 23 H 05/25/21 23:44 Blood Pressure 117/63 05/25/21 23:44 Pulse Oximetry 94 05/25/21 23:44 MDM - Chest Pain MDM Narrative: Medical decision making narrative: Patient is a 71-year-old male who comes to the ED with chest pain. He has been having the same chest pain that is been constant for the past 3 weeks. He was seen here in the ED on May 07 for same complaint. Patient has a history of COPD and is on 4 L of oxygen at home continuously, esophageal and lung cancer. Vitals are stable and patient is at 99% O2 saturation on 4 L via nasal cannula. Lungs sound wheezy and tight bilaterally and throughout all lung amador. Rest of exam is benign. CBC and CMP were unremarkable. Troponins were negative. Patient's D-dimer was slightly elevated at 0.[address] after talking with Dr[address] Garcia about D-dimer level given patient's age and medical history he did not think a CTA of chest was necessary. BNP slightly elevated at 271. Chest x-ray showed small right pleuralal effusion, emphysematous changes and right lower lobe subs segmental atelectasis versus infiltrate. Discussed patient case with Dr. Garcia and he agreed that patient could be discharged home with follow-up. Patient's chest pain did improve with some morphine. He was also given 2 DuoNeb breathing treatments while here in the ED to help with his wheezing. He was given a dose of doxycycline and Solu-Medrol while here in the ED. I also placed outpatient order for patient to have possible cardiac stress test done for further evaluation of chest pain since it has been going on now for the past 3 weeks. Patient diagnosed with atypical chest pain and COPD and was discharged home with a prescription for doxycycline and prednisone. Patient was given strict return to ED precautions given. Follow-up with PCP within the next week for reevaluation. He was told case management should contact them the next several days set up an appointment for cardiac stress test. Patient understood and agreed with plan. Lab Data: Attestation: I reviewed the patient's lab results. Labs: Lab Results 05/25/21 05/25/21 05/25/21 20:04 20:04 20:04 WBC 12.0 10^3/uL H 10 ^3/uL (4.0-10.0) RBC 4.09 10^6/uL L 10 ^6/uL (4.1-5.3) Hgb 12.4 g/dL g/dL (11.7-16.6) Hct 39.1 % L % (42.0-52.0) MCV 95.6 fl H fl (80-94) MCH 30.3 pg pg (28.0-34.0) MCHC 31.7 g/dL g/dL (30.0-36.0) RDW 12.9 % % (12.1-15.1) Plt Count 214 10^3/cmm 10^3 /cmm (130-400) MPV 9.4 fL fL (7.4-10.4) Neut % (Auto) 78.5 % % Lymph % (Auto) 13.6 % % [place] % (Auto) 5.9 % % Eos % (Auto) 0.6 % % Baso % (Auto) 0.7 % % Neut # (Auto) 9.43 10^3/uL H 10 ^3/uL (1.8-7.7) Lymph # (Auto) 1.6 10^3/uL 10^3/ uL (0.8-4.8) [place] # (Auto) 0.7 10^3/uL 10^3/ uL (0.2-0.9) Eos # (Auto) 0.1 10^3/uL 10^3/ uL (0.0-0.8) Baso # (Auto) 0.1 10^3/uL 10^3/ uL (0.0-0.1) Nucleated RBC % (a uto) 0 % % Nucleated RBCs # 0.0 /100WBC /100W BC D-Dimer 0.61 ug/mIFEU H u g/mIFEU (0-0.59) Sodium 139 mmol/L mmol/L (136-145) Potassium 3.6 mmol/L mmol/L (3.5-5.1) Chloride 98 mmol/L mmol/L (98-107) Carbon Dioxide 29 mmol/L mmol/L (22-29) Anion Gap 15.6 (5-19) BUN 20 mg/dL mg/dL (8-23) Creatinine 0.8 mg/dL mg/dL (0.7-1.2) GFR Calculation 95.8 mL/min mL/mi n (90-130) Glucose 135 mg/dL H mg/dL (65-115) Calculated Osmolal ity 293 mOsm/kg mOsm/ kg (285-295) Calcium 8.3 mg/dL L mg/dL (8.5-10.5) Total Bilirubin 0.2 mg/dL mg/dL (0.15-1.2) AST 8 U/L U/L (0-40) ALT < 5 U/L U/L (0-41) Alkaline Phosphata se 131 IU/L H IU/L (40-130) Troponin T Baselin e Troponin T 120 Min [place] Troponin T NT-Pro-B Natriuret Pep 271 pg/mL H pg/mL (0-125) Total Protein 5.8 g/dL L g/dL (6.6-8.7) Albumin 3.7 g/dL g/dL (3.5-5.2) Globulin 2.1 g/dL g/dL (1.3-4.6) 05/25/21 05/25/21 20:04 22:16 WBC RBC Hgb Hct MCV MCH MCHC RDW Plt Count MPV Neut % (Auto) Lymph % (Auto) [place] % (Auto) Eos % (Auto) Baso % (Auto) Neut # (Auto) Lymph # (Auto) [place] # (Auto) Eos # (Auto) Baso # (Auto) Nucleated RBC % (a uto) Nucleated RBCs # D-Dimer Sodium Potassium Chloride Carbon Dioxide Anion Gap BUN Creatinine GFR Calculation Glucose Calculated Osmolal ity Calcium Total Bilirubin AST ALT Alkaline Phosphata se Troponin T Baselin e 38 ng/L H ng/L (0-15) Troponin T 120 Min [place] 36.40 ng/L H ng/L (0-15) Delta Troponin T -1.60 ABS# L ABS# (0-10) NT-Pro-B Natriuret Pep Total Protein Albumin Globulin Imaging Data^: CXR: Attestation: I personally reviewed and interpreted this imaging study as follows: Radiologist's impression: [facility] [address] XRay Report Signed Patient: Jaime Olivares Unit #: [id number] : 1950 Age/Sex: 71 / M ADM Date: Loc: ER Room/Bed: Attending Dr: Ordering Provider/Ordering MD: Dhiraj Torres Date of Service: 05/25/21 Procedure(s): XR chest 1V portable 73997 Accession Number(s): [id number] Report Number: [id number] PROCEDURE INFORMATION: Exam: XR Chest Exam date and time: 05/25/2021 6:38 PM Age: 71 years old Clinical indication: Shortness of breath; Additional info: SOB and cp TECHNIQUE: Imaging protocol: XR of the chest. Views: 1 view. COMPARISON: CR (CHEST, ) 05/07/2021 5:21 PM FINDINGS: Lungs: Emphysematous changes. Right lower lobe subsegmental atelectasis versus infiltrate. Pleural spaces: Small right pleural effusion. Heart/Mediastinum: Unremarkable. No cardiomegaly. Bones/joints: Unremarkable. XR/XR chest 1V portable [id number] IMPRESSION: 1. Small right pleural effusion. 2. Emphysematous changes. 3. Right lower lobe subsegmental atelectasis versus infiltrate. Dictated By: Duran Berger MD Signed By: Duran Berger MD Signed Date/Time: 05/25/211929 DD/ EKG Data^: EKG 1: Attestation: I personally reviewed and interpreted this EKG as follows: EKG interpretation date: 05/25/21 EKG interpretation time: 18:39 Interpretation: Normal sinus rhythm, 87 bpm, no ST segment elevation or depression seen. EKG 2: Attestation: I personally reviewed and interpreted this EKG as follows: EKG interpretation date: 05/25/21 EKG interpretation time: 20:41 Interpretation: Normal sinus rhythm, 72 bpm, no ST segment elevation or depression seen. Discharge Plan Discharge Patient Disposition: Home Clinical Impression: Atypical chest pain COPD (chronic obstructive pulmonary disease) Qualifiers: COPD type: unspecified COPD Qualified Code(s): J44.9 - Chronic obstructive pulmonary disease, unspecified Condition: Stable Prescriptions: New doxycycline hyclate 100 mg capsule 100 mg PO BID 10 Days Qty: 20 RF: 0 prednisone 20 mg tablet 20 mg PO BID 7 Days Qty: 14 RF: 0 No Action finasteride [Proscar] 5 mg tablet 5 mg PO DAILY 30 Days Qty: 30 RF: 2 citalopram 40 mg tablet 40 mg PO DAILY 30 Days Qty: 30 RF: 5 doxycycline hyclate 100 mg capsule 100 mg PO BID 10 Days Qty: 20 RF: 0 prednisone 20 mg tablet 20 mg PO BID Qty: 10 RF: 0 albuterol sulfate 2.5 mg /3 mL (0.083 %) solution for nebulization 2.5 mg INHALATION QID PRN (Reason: Shortness Of Breath) RF: 0 butenafine [Lotrimin Ultra] 1 % cream 1 applic TOPICAL BID PRN (Reason: Allergic Reaction) RF: 0 epinephrine 0.3 mg/0.3 mL auto-injector 0.3 mg IM ONCE RF: 0 Restasis MultiDose 0.05 % drops 1 drop ophthalmic (eye) Q12H RF: 0 mupirocin 2 % ointment 1 applic TOPICAL BID Qty: 22 RF: 2 levocetirizine [Xyzal] 5 mg tablet 5 mg PO DAILY RF: 0 (DME) walker with seat /wheels See Rx Instructions .Route .MEDSUPPLY Qty: 1 RF: 0 carbamide peroxide [Debrox] 6.5 % drops 10 drop EAR-BOTH DAILY 4 Days Qty: 30 RF: 0 albuterol sulfate [ProAir HFA] 90 mcg/actuation HFA aerosol inhaler See Rx Instructions .ROUTE .COMPLEX Qty: 8.5 RF: 3 budesonide [Pulmicort] 0.5 mg/2 mL suspension for nebulization 0.5 mg INHALATION BID 90 Days Qty: 360 RF: 3 ipratropium-albuterol 0.5 mg-3 mg(2.5 mg base)/3 mL solution for nebulization See Rx Instructions .ROUTE .COMPLEX Qty: 360 RF: 3 diazepam [Valium] 5 mg tablet 5 mg PO BID PRN (Reason: anxiety) Qty: 90 RF: 0 atorvastatin 40 mg tablet 40 mg PO DAILY Qty: 90 RF: 3 aspirin [Adult Aspirin Regimen] 81 mg tablet,delayed release (DR/EC) 81 mg PO DAILY Qty: 90 RF: 1 losartan 25 mg tablet 25 mg PO DAILY Qty: 90 RF: 3 nystatin 100,000 unit/mL suspension 5 ml PO QID 30 Days Qty: 600 RF: 5 montelukast 10 mg tablet See Rx Instructions .ROUTE .COMPLEX Qty: 30 RF: 0 spironolactone 25 mg tablet 25 mg PO DAILY Qty: 30 RF: 3 magnesium L-lactate [Magtab] 84 mg tablet extended release See Rx Instructions .ROUTE .COMPLEX Qty: 30 RF: 5 furosemide 20 mg tablet 40 mg PO BID Qty: 120 RF: 3 potassium chloride 20 mEq tablet extended release 20 meq PO .COMPLEX Qty: 120 RF: 3 MediHoney (honey) 80 % gel 1 applic topical BID 30 Days Qty: 44 RF: 2 prednisone 5 mg tablet See Rx Instructions .ROUTE .COMPLEX Qty: 30 RF: 3 silver sulfadiazine 1 % cream 1 applic topical BID Qty: 25 RF: 0 Lidocaine Viscous 2 % solution See Rx Instructions .ROUTE .COMPLEX Qty: 100 RF: 5 azithromycin 500 mg tablet 500 mg PO .QOD 90 Days Qty: 45 RF: 3 pantoprazole 40 mg tablet,delayed release (DR/EC) See Rx Instructions .ROUTE .COMPLEX Qty: 30 RF: 2 doxycycline hyclate 100 mg tablet 100 mg PO BID 5 Days Qty: 10 RF: 0 prednisone 20 mg tablet 40 mg PO DAILY 5 Days Qty: 10 RF: 0 metoprolol tartrate 25 mg tablet 25 mg PO BID Qty: 60 RF: 5 ondansetron HCl 8 mg tablet 8 mg PO BID PRN (Reason: Nausea And Vomiting) RF: 0 azelastine 137 mcg (0.1 %) aerosol,spray 1 - 2 spray INTRANASAL BID RF: 0 carbamazepine 100 mg capsule, ER multiphase 12 hr 100 mg PO DAILY RF: 0 Narcan 4 mg/actuation spray,non-aerosol 4 mg intranasal Q2M PRN (Reason: opioid overdose) Qty: 2 RF: 0 Discharge Orders: Discharge ED (Routine); Ordered 05/25/21 Ordered By: Dhiraj Torres Referrals: May Knapp FNP-C [Primary Care Provider] - Discharge Diet: Regular Discharge Activity: Increase activity as tolerated Patient Instructions: Chest Pain (DC), COPD (Chronic Obstructive Pulmonary Disease) (DC) Activity Restrictions/Additional Instructions: Follow-up with your PCP early next week for reevaluation. Case management will be contacting you next several days set up an appointment to have cardiac stress test performed. take medications as prescribed. Continue taking all other home meds. Return to the ER or your medical provider if condition worsens. Please read and understand discharge instructions. Thank you for choosing [facility] for your healthcare needs today. Please realize this is an emergency room and that we are providing you with a medical screening exam and this may not be complete and all inclusive of all the testing and or work up that you may need to determine your ailment or severity of your illness. It is very important that you follow up as instructed or that you return to the Emergency Department should you have concerns or if your condition changes or worsens in any way. Coding Level of Care Code ED Civil Clerk for Chg Fwd Exam Comprehensive Documented by User: Bonifacio Garcia, 05/26/21 04:40 HPI - Chest Pain General: Chief Complaint: Chest Pain Stated Complaint: Chest pains SOB Time Seen by Provider: 05/25/21 18:41 REPLACED BY [facility] ED PFSH: Medical History Acquired bilateral hammer toes Acute diverticulitis Bee sting allergy Bilateral bunions Bulging lumbar disc Chronic bilateral low back pain Chronic erythematous candidosis Chronic low back pain Chronic nausea Chronic respiratory failure with hypoxia COPD (chronic obstructive pulmonary disease) Degenerative disc disease Dysphagia, unspecified Emphysema, unspecified GERD (gastroesophageal reflux disease) History of colon cancer Hypersomnia Lesion of true vocal cord Lower extremity edema Mixed hyperlipidemia Nicotine dependence, cigarettes, uncomplicated Nocturia Onychomycosis MANISH (obstructive sleep apnea) Other specified joint disorders, right shoulder PAD (peripheral artery disease) Polyneuropathy, unspecified Sebaceous cyst of scrotum Segmental and somatic dysfunction of rib cage Blanco-Isaac syndrome Vasomotor rhinitis Venous reflux Surgical History H/O foot surgery H/O hernia repair History of back surgery History of cholecystectomy History of esophagogastroduodenoscopy (EGD) History of partial colectomy Family History Mother , Age 73 Hodgkin disease Cancer Father , Age 67 Stroke Social History Smoking and tobacco status: current every day smoker cigarettes [ Other cigarette details: 2019PD x 50 Years ] Quit status (tobacco): considering quitting Second hand smoke exposure: Yes Smoking risk assessment/counseling performed?: Yes Alcohol intake: never Desire information about alcohol rehabilitation?: No Counseling given: No Desire information about substance/drug rehabilitation?: No Counseling given: Yes Lives independently: Yes Household members: spouse Marital status: Highest education level completed: Some College, No Degree service: No Current occupational status: retired History of recent travel: No Current gender identity: Male Course Vital Signs: Vital signs: Vital Signs Temperature 97.8 F 05/25/21 23:44 Pulse Rate 102 H 05/25/21 23:44 Respiratory Rate 23 H 05/25/21 23:44 Blood Pressure 117/63 05/25/21 23:44 Pulse Oximetry 94 05/25/21 23:44 MDM - Chest Pain MDM Narrative: Medical decision making narrative: This patient was originally seen by Mr. Brian PA-C. I agree with his history, evaluation, and treatment. Lab Data: Labs: Lab Results 05/25/21 05/25/21 05/25/21 20:04 20:04 20:04 WBC 12.0 10^3/uL H 10 ^3/uL (4.0-10.0) RBC 4.09 10^6/uL L 10 ^6/uL (4.1-5.3) Hgb 12.4 g/dL g/dL (11.7-16.6) Hct 39.1 % L % (42.0-52.0) MCV 95.6 fl H fl (80-94) MCH 30.3 pg pg (28.0-34.0) MCHC 31.7 g/dL g/dL (30.0-36.0) RDW 12.9 % % (12.1-15.1) Plt Count 214 10^3/cmm 10^3 /cmm (130-400) MPV 9.4 fL fL (7.4-10.4) Neut % (Auto) 78.5 % % Lymph % (Auto) 13.6 % % [place] % (Auto) 5.9 % % Eos % (Auto) 0.6 % % Baso % (Auto) 0.7 % % Neut # (Auto) 9.43 10^3/uL H 10 ^3/uL (1.8-7.7) Lymph # (Auto) 1.6 10^3/uL 10^3/ uL (0.8-4.8) [place] # (Auto) 0.7 10^3/uL 10^3/ uL (0.2-0.9) Eos # (Auto) 0.1 10^3/uL 10^3/ uL (0.0-0.8) Baso # (Auto) 0.1 10^3/uL 10^3/ uL (0.0-0.1) Nucleated RBC % (a uto) 0 % % Nucleated RBCs # 0.0 /100WBC /100W BC D-Dimer 0.61 ug/mIFEU H u g/mIFEU (0-0.59) Sodium 139 mmol/L mmol/L (136-145) Potassium 3.6 mmol/L mmol/L (3.5-5.1) Chloride 98 mmol/L mmol/L (98-107) Carbon Dioxide 29 mmol/L mmol/L (22-29) Anion Gap 15.6 (5-19) BUN 20 mg/dL mg/dL (8-23) Creatinine 0.8 mg/dL mg/dL (0.7-1.2) GFR Calculation 95.8 mL/min mL/mi n (90-130) Glucose 135 mg/dL H mg/dL (65-115) Calculated Osmolal ity 293 mOsm/kg mOsm/ kg (285-295) Calcium 8.3 mg/dL L mg/dL (8.5-10.5) Total Bilirubin 0.2 mg/dL mg/dL (0.15-1.2) AST 8 U/L U/L (0-40) ALT < 5 U/L U/L (0-41) Alkaline Phosphata se 131 IU/L H IU/L (40-130) Troponin T Baselin e Troponin T 120 Min [place] Troponin T NT-Pro-B Natriuret Pep 271 pg/mL H pg/mL (0-125) Total Protein 5.8 g/dL L g/dL (6.6-8.7) Albumin 3.7 g/dL g/dL (3.5-5.2) Globulin 2.1 g/dL g/dL (1.3-4.6) 05/25/21 05/25/21 20:04 22:16 WBC RBC Hgb Hct MCV MCH MCHC RDW Plt Count MPV Neut % (Auto) Lymph % (Auto) [place] % (Auto) Eos % (Auto) Baso % (Auto) Neut # (Auto) Lymph # (Auto) [place] # (Auto) Eos # (Auto) Baso # (Auto) Nucleated RBC % (a uto) Nucleated RBCs # D-Dimer Sodium Potassium Chloride Carbon Dioxide Anion Gap BUN Creatinine GFR Calculation Glucose Calculated Osmolal ity Calcium Total Bilirubin AST ALT Alkaline Phosphata se Troponin T Baselin e 38 ng/L H ng/L (0-15) Troponin T 120 Min [place] 36.40 ng/L H ng/L (0-15) Delta Troponin T -1.60 ABS# L ABS# (0-10) NT-Pro-B Natriuret Pep Total Protein Albumin Globulin Discharge Plan Discharge Patient Disposition: Home Clinical Impression: Atypical chest pain COPD (chronic obstructive pulmonary disease) Qualifiers: COPD type: unspecified COPD Qualified Code(s): J44.9 - Chronic obstructive pulmonary disease, unspecified Condition: Stable Prescriptions: New doxycycline hyclate 100 mg capsule 100 mg PO BID 10 Days Qty: 20 RF: 0 prednisone 20 mg tablet 20 mg PO BID 7 Days Qty: 14 RF: 0 No Action finasteride [Proscar] 5 mg tablet 5 mg PO DAILY 30 Days Qty: 30 RF: 2 citalopram 40 mg tablet 40 mg PO DAILY 30 Days Qty: 30 RF: 5 doxycycline hyclate 100 mg capsule 100 mg PO BID 10 Days Qty: 20 RF: 0 prednisone 20 mg tablet 20 mg PO BID Qty: 10 RF: 0 albuterol sulfate 2.5 mg /3 mL (0.083 %) solution for nebulization 2.5 mg INHALATION QID PRN (Reason: Shortness Of Breath) RF: 0 butenafine [Lotrimin Ultra] 1 % cream 1 applic TOPICAL BID PRN (Reason: Allergic Reaction) RF: 0 epinephrine 0.3 mg/0.3 mL auto-injector 0.3 mg IM ONCE RF: 0 Restasis MultiDose 0.05 % drops 1 drop ophthalmic (eye) Q12H RF: 0 mupirocin 2 % ointment 1 applic TOPICAL BID Qty: 22 RF: 2 levocetirizine [Xyzal] 5 mg tablet 5 mg PO DAILY RF: 0 (DME) walker with seat /wheels See Rx Instructions .Route .MEDSUPPLY Qty: 1 RF: 0 carbamide peroxide [Debrox] 6.5 % drops 10 drop EAR-BOTH DAILY 4 Days Qty: 30 RF: 0 albuterol sulfate [ProAir HFA] 90 mcg/actuation HFA aerosol inhaler See Rx Instructions .ROUTE .COMPLEX Qty: 8.5 RF: 3 budesonide [Pulmicort] 0.5 mg/2 mL suspension for nebulization 0.5 mg INHALATION BID 90 Days Qty: 360 RF: 3 ipratropium-albuterol 0.5 mg-3 mg(2.5 mg base)/3 mL solution for nebulization See Rx Instructions .ROUTE .COMPLEX Qty: 360 RF: 3 diazepam [Valium] 5 mg tablet 5 mg PO BID PRN (Reason: anxiety) Qty: 90 RF: 0 atorvastatin 40 mg tablet 40 mg PO DAILY Qty: 90 RF: 3 aspirin [Adult Aspirin Regimen] 81 mg tablet,delayed release (DR/EC) 81 mg PO DAILY Qty: 90 RF: 1 losartan 25 mg tablet 25 mg PO DAILY Qty: 90 RF: 3 nystatin 100,000 unit/mL suspension 5 ml PO QID 30 Days Qty: 600 RF: 5 montelukast 10 mg tablet See Rx Instructions .ROUTE .COMPLEX Qty: 30 RF: 0 spironolactone 25 mg tablet 25 mg PO DAILY Qty: 30 RF: 3 magnesium L-lactate [Magtab] 84 mg tablet extended release See Rx Instructions .ROUTE .COMPLEX Qty: 30 RF: 5 furosemide 20 mg tablet 40 mg PO BID Qty: 120 RF: 3 potassium chloride 20 mEq tablet extended release 20 meq PO .COMPLEX Qty: 120 RF: 3 MediHoney (honey) 80 % gel 1 applic topical BID 30 Days Qty: 44 RF: 2 prednisone 5 mg tablet See Rx Instructions .ROUTE .COMPLEX Qty: 30 RF: 3 silver sulfadiazine 1 % cream 1 applic topical BID Qty: 25 RF: 0 Lidocaine Viscous 2 % solution See Rx Instructions .ROUTE .COMPLEX Qty: 100 RF: 5 azithromycin 500 mg tablet 500 mg PO .QOD 90 Days Qty: 45 RF: 3 pantoprazole 40 mg tablet,delayed release (DR/EC) See Rx Instructions .ROUTE .COMPLEX Qty: 30 RF: 2 doxycycline hyclate 100 mg tablet 100 mg PO BID 5 Days Qty: 10 RF: 0 prednisone 20 mg tablet 40 mg PO DAILY 5 Days Qty: 10 RF: 0 metoprolol tartrate 25 mg tablet 25 mg PO BID Qty: 60 RF: 5 ondansetron HCl 8 mg tablet 8 mg PO BID PRN (Reason: Nausea And Vomiting) RF: 0 azelastine 137 mcg (0.1 %) aerosol,spray 1 - 2 spray INTRANASAL BID RF: 0 carbamazepine 100 mg capsule, ER multiphase 12 hr 100 mg PO DAILY RF: 0 Narcan 4 mg/actuation spray,non-aerosol 4 mg intranasal Q2M PRN (Reason: opioid overdose) Qty: 2 RF: 0 Discharge Orders: Discharge ED (Routine); Ordered 05/25/21 Ordered By: Dhiraj Torres Referrals: May Knapp FNP-C [Primary Care Provider] - Discharge Diet: Regular Discharge Activity: Increase activity as tolerated Patient Instructions: Chest Pain (DC), COPD (Chronic Obstructive Pulmonary Disease) (DC) Activity Restrictions/Additional Instructions: Follow-up with your PCP early next week for reevaluation. Case management will be contacting you next several days set up an appointment to have cardiac stress test performed. take medications as prescribed. Continue taking all other home meds. Return to the ER or your medical provider if condition worsens. Please read and understand discharge instructions. Thank you for choosing [facility] for your healthcare needs today. Please realize this is an emergency room and that we are providing you with a medical screening exam and this may not be complete and all inclusive of all the testing and or work up that you may need to determine your ailment or severity of your illness. It is very important that you follow up as instructed or that you return to the Emergency Department should you have concerns or if your condition changes or worsens in any way. Coding Level of Care Code ED Civil Clerk for Seymour Whitfield Exam Comprehensive
[2021-05-25] MEDS: aspirin 81 mg Chew Tablet 324 MG PO (19:41)
[2021-05-25] MEDS: morphine 4 mg/mL SDV 1 mL IVP ×2 (20:07→21:30)
[2021-05-25 20:08] LABS: Basophils # 0.1 10^3/uL (0.0-0.1); Basophils % 0.7 %; Eosinophils # 0.1 10^3/uL (0.0-0.8); Eosinophils % 0.6 %; Hematocrit 39.1 % (42.0-52.0); Hemoglobin 12.4 g/dL (11.7-16.6); Lymphocytes # 1.6 10^3/uL (0.8-4.8); Lymphocytes % 13.6 %; Mean Corpuscular HGB Conc 31.7 g/dL (30.0-36.0); Mean Corpuscular Hemoglobin 30.3 pg (28.0-34.0); Mean Corpuscular Volume 95.6 fl (80-94); Mean Platelet Volume 9.4 fL (7.4-10.4); Monocytes # 0.7 10^3/uL (0.2-0.9); Monocytes % 5.9 %; Neutrophils # 9.43 10^3/uL (1.8-7.7); Neutrophils % 78.5 %; Nucleated Red Blood Cells % 0 %; Platelet Count 214 10^3/cmm (130-400); Red Blood Count 4.09 10^6/uL (4.1-5.3); Red Cell Distribution Width 12.9 % (12.1-15.1)
[2021-05-25] MEDS: ipratropium-albuterol 3 mL Neb 6 ML INHALATION (20:14)
[2021-05-25 20:22] LABS: D Dimer 0.61 ug/mIFEU (0-0.59)
[2021-05-25 20:31] LABS: Troponin(5th) Baseline 38 ng/L (0-15)
[2021-05-25 20:40] LABS: Alanine Aminotransferase < 5 U/L (0-41); Albumin Level 3.7 g/dL (3.5-5.2); Alkaline Phosphatase 131 IU/L (40-130); Anion Gap 15.6 (5-19); Aspartate Amino Transferase 8 U/L (0-40); Blood Urea Nitrogen 20 mg/dL (8-23); Calcium 8.3 mg/dL (8.5-10.5); Carbon Dioxide 29 mmol/L (22-29); Chloride 98 mmol/L (98-107); Creatinine Clr Calc Pharmacy 111.6968; Globulin 2.1 g/dL (1.3-4.6); Glomerular Filtration Rate 95.8 mL/min (90-130); Glucose 135 mg/dL (65-115); NT Pro B Type Natriuretic Pept 271 pg/mL (0-125); Osmolality Calculated 293 mOsm/kg (285-295); Potassium 3.6 mmol/L (3.5-5.1); Sodium 139 mmol/L (136-145); Total Bilirubin 0.2 mg/dL (0.15-1.2); Total Protein 5.8 g/dL (6.6-8.7)
[2021-05-25] MEDS: sodium chloride 0.9% 500 ML 999 ML IV (22:21)
--- NOTE | 2021-05-30 07:11 | DCPLANNER ---
late entry - director of casework services had message to schedule an outpatient stress test for patient. guest experience manager faxed signed order to centralized scheduling, who will call patient with appointment information.
--- NOTE | 2021-06-27 07:03 | DCPLANNER ---
Addendum entered by Adeola Santizo 07/18/21 15:15: Patient had a follow up appointment scheduled for 07.02.21 for an outpatient stress test - patient did not attend test/ Original Note: Patient has an outpatient stress test scheduled for Friday, July 02, 2021 at 9:15, centralized scheduling will call patient with appointment information.
== END 2021-05-25 23:47 | disposition home or self-care (01) ==
PROVIDERS: Emergency Provider Physician Assistant; PCP Nurse Practitioner Family
DX: R07.89 Other chest pain (principal); J44.9 Chronic obstructive pulmonary disease, unspecified; Z79.82 Long term (current) use of aspirin; Z85.038 Personal history of other malignant neoplasm of large intestine; E78.2 Mixed hyperlipidemia; F17.210 Nicotine dependence, cigarettes, uncomplicated
CPT/HCPCS: 36415; 71045; 80053; 83880; 84484; 85025; 85378; 93005; 94640; 96374; 96375; 99284; J2270; J7040

== ENCOUNTER 2021-05-30 11:16 | Outpatient (CLI) | payer MEDICAID, SELFPAY ==
--- NOTE | 2021-05-30 11:50 | XR_ITS ---
WS: [id number] CHEST 2 VIEWS HISTORY: J90 - Pleural effusion, not elsewhere classified COMPARISON: 05/25/2021 Lungs: Difficult positioning due to patient's condition. Images are performed within the wheelchair. Patient is markedly kyphotic. Lung volumes are decreased in part due to kyphosis. Mild pleural thicke arvin throughout the RIGHT lung. RIGHT costophrenic angle is not included on this examination. LEFT yehuda ng is clear. Cardiac size: Normal. Mediastinum/Aorta: Moderate atherosclerosis aorta. Bones: Osteopenia. Multiple rib fractures with deformity in the posterior RIGHT thorax. These appear to be remote fractures that were present on prior studies. XR/XR chest 2V* [id number] IMPRESSION: Pleural and interstitial thickening throughout the RIGHT lung. No pneumonia. Ma rked emphysema.
== END 2021-05-30 11:17 | disposition home or self-care (01) ==
PROVIDERS: PCP Nurse Practitioner Family; Visit Provider Nurse Practitioner Family
DX: J90 Pleural effusion, not elsewhere classified (principal); R07.89 Other chest pain; J43.9 Emphysema, unspecified
CPT/HCPCS: 71046; 85379

== ENCOUNTER 2021-06-01 16:24 | Emergency (ER) | payer MEDICAID, SELFPAY ==
[2021-06-01 16:45] VITALS: BP 154/86; PULSE 85; RESP 16; TEMP 36.9; O2SAT 93
--- NOTE | 2021-06-01 16:45 | XRR_ITS ---
PROCEDURE INFORMATION: Exam: XR Chest Exam date and time: 06/01/2021 4:45 PM Age: 71 years old Clinical indication: Shortness of breath; Additional info: Chest pain TECHNIQUE: Imaging protocol: XR of the chest. Views: 1 view. Other technique: The patient is rotated to the right. COMPARISON: CR XR chest 2V* [id number] 05/30/2021 12:01 PM FINDINGS: Lungs: Stable scarring in the right lower lobe. No focal consolidation. No pulmonary edema. Pleural spaces: No pleural effusion. No pneumothorax. Heart/Mediastinum: Stable moderate enlargement of the cardiac silhouette. Vasculature: Stable vascular calcifications in the aorta. Bones/joints: Bones are diffusely osteopenic. Degenerative changes in the spine and shoulders. Multiple old right rib fractures are stable. Patient has had a previous right rotator cuff repair. XR/XR chest 1V portable [id number] IMPRESSION: 1. No acute cardiopulmonary process. 2. Incidental/nonacute findings are listed in the report.
--- NOTE | 2021-06-01 16:45 | ECG_ITS ---
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
--- NOTE | 2021-06-01 19:12 | PC.NURSE ---
pt was called and this nurse spoke to about pt leaving with oxygen tank. upset with call stating pt was dying and wasnt seen by due to long wait times in ED.
--- NOTE | 2021-06-01 19:14 | PC.NURSE ---
at 1850 pt was not seen in ed registration staff stated that pt had left at 1827 with family
== END 2021-06-01 19:18 | disposition left against medical advice (07) ==
PROVIDERS: Emergency Provider Family Medicine; PCP Nurse Practitioner Family
DX: Z53.21 Procedure and treatment not carried out due to patient leaving prior to being seen by health care provider (principal)
CPT/HCPCS: 71045; 93005; 99282

== ENCOUNTER 2021-06-11 14:00 | Inpatient (IN) | payer MEDICAID, SELFPAY ==
[2021-06-11] VITALS (13 sets, daily range): BP systolic 111–154; BP diastolic 74–85; PULSE 58–111; RESP 16–34; TEMP 37.1; O2SAT 88–98; BMI 31.6
--- NOTE | 2021-06-11 14:11 | ECG_ITS ---
[facility] Test Date: 2021-06-11 Pat Name: Jaime Olivares Department: Room: Gender: Male Scaffolder: : 1950 Requested By: Samir Adame Order Number: [id number] Nora MD: Lilly Rowell M.D. Measurements Intervals [place] Rate: 63 P: 69 NH: 170 QRS: -58 QRSD: 93 T: 24 QT: 391 QTc: 403 Interpretive Statements SINUS RHYTHM PATTERN CONSISTENT WITH PULMONARY DISEASE INFERIOR MYOCARDIAL INFARCTION , OF INDETERMINATE AGE [40+ ms Q WAVE AND/OR ST/T ABNORMALITY IN II/aVF] Compared to ECG 06/01/2021 16:34:45 Myocardial infarct finding now present Left-axis deviation no longer present Electronically Signed On 06-12-2021 0:03:10 PROCESSING INSPECTOR by Lilly Rowell M.D. [id number]
--- NOTE | 2021-06-11 14:17 | W.ED.SOB ---
HPI - SOB/Dyspnea General: Chief Complaint: Shortness of Breath/Dyspnea Stated Complaint: RESPIRATORY DISTRESS/ CHEST PAIN Time Seen by Provider: 06/11/21 14:10 History of Present Illness: HPI Narrative: 71-year-old male who presents to the emergency room with shortness of breath wheezing cough congestion. Is a history of end-stage COPD and is generally on 4 L by nasal cannula. EMS called out because of the complaints of shortness of breath. He turned his oxygen up on arrival here he is on 6 L he is awake alert and talking he is denying any chest pain he did get albuterol and sublingual nitro in route. Denies any fever. No vomiting or diarrhea. MD elicited complaint: shortness of breath and cough Pertinent past history: COPD Onset (ago): hour(s) Context: occurred during exertion Timing: constant Severity: moderate Exacerbating factors: exertion and coughing Relieving factors: oxygen and rest Known history of: COPD Associated symptoms: Reports cough; Deny abdominal pain, chest congestion, chest pain, diaphoresis, dizziness, extremity pain, fever(s), hemoptysis, lightheadedness, myalgias, nausea, orthopnea, palpitations, paresthesias, polydipsia, polyuria, rash, sense of impending doom, syncope or vomiting Treatment prior to arrival: oxygen and bronchodilator Review of Systems Const: Denies: fever(s) or diaphoresis Card: Denies: chest pain, palpitations, lightheadedness, syncope or orthopnea Resp: Denies: hemoptysis or chest congestion GI: Denies: abdominal pain, nausea or vomiting Musc: Denies: extremity pain Neuro: Denies: dizziness Endo: Denies: polyuria or polydipsia PFS ED PFSH: Medical History (Updated 06/11/21 @ 16:47 by Samir Hassan DO) Acquired bilateral hammer toes Acute diverticulitis Bee sting allergy Bilateral bunions Bulging lumbar disc Chronic bilateral low back pain Chronic erythematous candidosis Chronic low back pain Chronic nausea Chronic respiratory failure with hypoxia COPD (chronic obstructive pulmonary disease) Degenerative disc disease Dysphagia, unspecified Emphysema, unspecified GERD (gastroesophageal reflux disease) History of colon cancer Hypersomnia Lesion of true vocal cord Lower extremity edema Mixed hyperlipidemia Nicotine dependence, cigarettes, uncomplicated Nocturia Onychomycosis MANISH (obstructive sleep apnea) Other specified joint disorders, right shoulder PAD (peripheral artery disease) Polyneuropathy, unspecified Sebaceous cyst of scrotum Segmental and somatic dysfunction of rib cage Blanco-Isaac syndrome Vasomotor rhinitis Venous reflux Surgical History H/O foot surgery H/O hernia repair History of back surgery History of cholecystectomy History of esophagogastroduodenoscopy (EGD) History of partial colectomy Family History Mother , Age 73 Hodgkin disease Cancer Father , Age 67 Stroke Social History Quit status (tobacco): considering quitting Second hand smoke exposure: Yes Smoking risk assessment/counseling performed?: Yes Alcohol intake: never Desire information about alcohol rehabilitation?: No Counseling given: No Desire information about substance/drug rehabilitation?: No Counseling given: Yes Lives independently: Yes Household members: spouse Marital status: Highest education level completed: Some College, No Degree service: No Current occupational status: retired History of recent travel: No Current gender identity: Male Physical Exam Const: GENERAL APPEARANCE: cooperative ORIENTATION/CONSCIOUSNESS: Yes awake, Yes oriented to person, Yes oriented to place and Yes oriented to time HENMT: COMMON NORMALS: normocephalic, atraumatic and hearing grossly normal bilaterally HEAD & SCALP: normocephalic and atraumatic Neck/C-Spine: COMMON NORMALS: no JVD Resp: AUSCULTATION: rhonchi and wheezes Cardio: COMMON NORMALS: no JVD, regular rate, regular rhythm and No murmurs present (Cardio) RATE: regular rate RHYTHM: regular rhythm GI: COMMON NORMALS: Soft to palpation and No hepatosplenomegaly present AUSCULTATION: Yes normoactive bowel sounds PALPATION: Yes Soft to palpation, No Tenderness to palpation present (GI), No Guarding due to palpation present (GI) and Yes No hepatosplenomegaly present Extremity: GENERAL: Yes edema (Trace lower extremity) Neuro: SENSORIUM/ORIENTATION: Yes oriented to person, Yes oriented to place and Yes oriented to time Course Vital Signs: Vital signs: Vital Signs Temperature 98.7 F 06/11/21 14:02 Pulse Rate 67 06/11/21 14:29 Respiratory Rate 16 06/11/21 14:29 Blood Pressure 126/81 06/11/21 14:29 Pulse Oximetry 93 06/11/21 14:29 MDM - SOB/Dyspnea MDM Narrative: Medical decision making narrative: Labs imaging and EKG reviewed on the chart. Patient has hypercapnic respiratory failure as well as a pneumonia. We will start him on antibiotics and continue on BiPAP. Patient had some difficulty maintaining the BiPAP mask so we gave him some Ativan to help with that. He is complaining of mid back pain and chest pain. He previously been evaluated recently and found with a T6 compression fracture that I think is the source of his pain he says he had the same pain now for several weeks. He did have a stress test earlier this year which was unremarkable. Discussed with hospitalist orders written Lab Data: Labs: Lab Results 06/11/21 06/11/21 06/11/21 14:12 14:12 14:12 WBC 16.3 10^3/uL H 10 ^3/uL (4.0-10.0) RBC 4.25 10^6/uL 10^6 /uL (4.1-5.3) Hgb 12.5 g/dL g/dL (11.7-16.6) Hct 40.9 % L % (42.0-52.0) MCV 96.2 fl H fl (80-94) MCH 29.4 pg pg (28.0-34.0) MCHC 30.6 g/dL g/dL (30.0-36.0) RDW 13.3 % % (12.1-15.1) Plt Count 211 10^3/cmm 10^3 /cmm (130-400) MPV 10.2 fL fL (7.4-10.4) Neut % (Auto) 81.1 % % Lymph % (Auto) 12.2 % % Pitt % (Auto) 5.0 % % Eos % (Auto) 0.6 % % Baso % (Auto) 0.6 % % Neut # (Auto) 13.25 10^3/uL H 1 0^3/uL (1.8-7.7) Lymph # (Auto) 2.0 10^3/uL 10^3/ uL (0.8-4.8) Pitt # (Auto) 0.8 10^3/uL 10^3/ uL (0.2-0.9) Eos # (Auto) 0.1 10^3/uL 10^3/ uL (0.0-0.8) Baso # (Auto) 0.1 10^3/uL 10^3/ uL (0.0-0.1) Nucleated RBC % (a uto) 0 % % Nucleated RBCs # 0.0 /100WBC /100W BC Specimen Type Sample Site ABG pH ABG pCO2 ABG pO2 ABG HCO3 ABG O2 Saturation ABG Base Excess Placido Test A-a O2 Gradient Hematocrit Hgb O2 Saturation Carboxyhemoglobin Methemoglobin Total Hemoglobin Ionized Calcium O2 Delivery Device O2 Liters/Min FiO2 Completion Engineer ID Sodium 137 mmol/L mmol/L (136-145) Potassium 4.9 mmol/L mmol/L (3.5-5.1) Chloride 96 mmol/L L mmol/ L (98-107) Carbon Dioxide 35 mmol/L H mmol/ L (22-29) Anion Gap 10.9 (5-19) BUN 9 mg/dL mg/dL (8-23) Creatinine 0.5 mg/dL L mg/dL (0.7-1.2) GFR Calculation 164.9 mL/min H mL /min (90-130) Glucose 101 mg/dL mg/dL (65-115) Calculated Osmolal ity 283 mOsm/kg L mOs m/kg (285-295) Calcium 8.4 mg/dL L mg/dL (8.5-10.5) Total Bilirubin 0.4 mg/dL mg/dL (0.15-1.2) AST 11 U/L U/L (0-40) ALT 8 U/L U/L (0-41) Alkaline Phosphata se 112 IU/L IU/L (40-130) Troponin T Baselin e 31 ng/L H ng/L (0-15) Troponin T 120 Min valeria Delta Troponin T Total Protein 6.6 g/dL g/dL (6.6-8.7) Albumin 3.8 g/dL g/dL (3.5-5.2) Globulin 2.8 g/dL g/dL (1.3-4.6) 06/11/21 06/11/21 14:24 15:50 WBC RBC Hgb Hct MCV MCH MCHC RDW Plt Count MPV Neut % (Auto) Lymph % (Auto) Pitt % (Auto) Eos % (Auto) Baso % (Auto) Neut # (Auto) Lymph # (Auto) Pitt # (Auto) Eos # (Auto) Baso # (Auto) Nucleated RBC % (a uto) Nucleated RBCs # Specimen Type Arterial Sample Site Radial, right ABG pH 7.33 L (7.35-7.45) ABG pCO2 72.4 mmHg H* mmHg (35-45) ABG pO2 64.5 mmHg L mmHg (80.0-100.0) ABG HCO3 38.1 mmol/L H mmo l/L (22-26) ABG O2 Saturation 93.0 ABG Base Excess 9.4 mmol/L H mmol /L (-2.0-2.0) Placido Test Pos A-a O2 Gradient 16.9 mmHg H mmHg (5-10) Hematocrit 39.8 % L % (42-52) Hgb O2 Saturation 86.8 % L % (95-100) Carboxyhemoglobin 5.6 %THgb %THgb (0.4-20.1) Methemoglobin 1.1 % % (0.4-1.5) Total Hemoglobin 13.0 g/dL L g/dL (14-18) Ionized Calcium 1.2 mmol/L mmol/L (1.1-1.4) O2 Delivery Device Nc O2 Liters/Min 5.0 % % FiO2 40.0 % % Completion Engineer ID Ed Sodium 137.0 mmol/L mmol /L (131-143) Potassium 4.7 mmol/L mmol/L (3.5-5.0) Chloride Carbon Dioxide Anion Gap BUN Creatinine GFR Calculation Glucose 111.0 mg/dL mg/dL (70-115) Calculated Osmolal ity Calcium Total Bilirubin AST ALT Alkaline Phosphata se Troponin T Baselin e Troponin T 120 Min valeria 30.19 ng/L H ng/L (0-15) Delta Troponin T -0.81 ABS# L ABS# (0-10) Total Protein Albumin Globulin Discharge Plan Discharge Patient Disposition: Admitted As Inpatient Clinical Impression: Acute and chronic respiratory failure with hypercapnia, Pneumonia, Compression fracture of thoracic vertebra Condition: Stable Coding Level of Care Code ED Renewable Energy Consultant for Chg Fwd Exam Detailed
[2021-06-11 14:18] LABS: Basophils # 0.1 10^3/uL (0.0-0.1); Basophils % 0.6 %; Eosinophils # 0.1 10^3/uL (0.0-0.8); Eosinophils % 0.6 %; Hematocrit 40.9 % (42.0-52.0); Hemoglobin 12.5 g/dL (11.7-16.6); Lymphocytes % 12.2 %; Mean Corpuscular HGB Conc 30.6 g/dL (30.0-36.0); Mean Corpuscular Hemoglobin 29.4 pg (28.0-34.0); Mean Corpuscular Volume 96.2 fl (80-94); Mean Platelet Volume 10.2 fL (7.4-10.4); Monocytes # 0.8 10^3/uL (0.2-0.9); Neutrophils # 13.25 10^3/uL (1.8-7.7); Neutrophils % 81.1 %; Nucleated Red Blood Cells % 0 %; Platelet Count 211 10^3/cmm (130-400); Red Blood Count 4.25 10^6/uL (4.1-5.3); Red Cell Distribution Width 13.3 % (12.1-15.1); White Blood Count 16.3 10^3/uL (4.0-10.0)
[2021-06-11 14:34] LABS: ABG PH Result 7.33 (7.35-7.45); Arterial Blood Gas Hematocrit 39.8 % (42-52); Base Excess ABG 9.4 mmol/L (-2.0-2.0); Blood Gas Allen Test Pos; Blood Gas Sample Type Arterial; Carboxyhemoglobin 5.6 %THgb (0.4-20.1); HCO3 ABG 38.1 mmol/L (22-26); HGB O2 Sat 86.8 % (95-100); Ionized Calcium Level - ABG 1.2 mmol/L (1.1-1.4); Methemoglobin 1.1 % (0.4-1.5); PO2 ABG 64.5 mmHg (80.0-100.0); Potassium Level - ABG 4.7 mmol/L (3.5-5.0)
[2021-06-11 14:35] LABS: ABG PCO2 72.4 mmHg (35-45); Alveolar-Arterial Oxygen Gradi 16.9 mmHg (5-10); Blood Gas Operator Identificat ED; Blood Gas Sample Site Radial, right; Oxygen Device NC
[2021-06-11 14:41] LABS: Alanine Aminotransferase 8 U/L (0-41); Albumin Level 3.8 g/dL (3.5-5.2); Alkaline Phosphatase 112 IU/L (40-130); Anion Gap 10.9 (5-19); Aspartate Amino Transferase 11 U/L (0-40); Blood Urea Nitrogen 9 mg/dL (8-23); Calcium 8.4 mg/dL (8.5-10.5); Carbon Dioxide 35 mmol/L (22-29); Chloride 96 mmol/L (98-107); Globulin 2.8 g/dL (1.3-4.6); Glomerular Filtration Rate 164.9 mL/min (90-130); Glucose 101 mg/dL (65-115); Osmolality Calculated 283 mOsm/kg (285-295); Potassium 4.9 mmol/L (3.5-5.1); Sodium 137 mmol/L (136-145); Total Bilirubin 0.4 mg/dL (0.15-1.2); Total Protein 6.6 g/dL (6.6-8.7)
[2021-06-11 14:43] LABS: Troponin(5th) Baseline 31 ng/L (0-15)
--- NOTE | 2021-06-11 14:51 | XR_ITS ---
WS: [id number] Portable AP upright chest, 06/11/2021 Clinical Data: dyspnea/cough Comparison: Portable chest, 06/01/2021. Findings: There are peripheral pulmonary opacities in the right lung. These opacities could represent acute pneumonia. The left lung is clear. The patient is rotated. There is pleural reaction at the [facility] lung base. The heart is enlarged. The aortic arch shows calcification and tortuosity. Monitor efrain ds are on the chest wall. There is an orthopedic anchor in the right humeral head. There are old righ t rib fractures. XR/XR chest 1V portable [id number] Impression: 1. Development of patchy right lung pulmonary opacity which could represent acu te pneumonia. 2. Atherosclerosis and cardiomegaly.
[2021-06-11] MEDS: morphine 4 mg/mL SDV 1 mL 2 MG IVP (15:32)
--- NOTE | 2021-06-11 15:53 | PC.RESP ---
patient was agreed to wear bipap. Therapist got the bipap all setup and patient rerfused to wear bipap unless he got pain meds. said pain meds were offered and patient refused them. Therapist went back in again and patient stated that he will not wear anything until he gets pain meds. multiple attempts were tried for patient to wear bipap and non were successful.
[2021-06-11 16:22] LABS: Troponin 5 2HR 30.19 ng/L (0-15)
[2021-06-11 16:25] LABS: Troponin 5 2HR Delta -0.81 ABS# (0-10)
[2021-06-11] MEDS: LORazepam 2 mg/mL INJ 1 mL 1 MG IVP (16:50)
[2021-06-11] MEDS: vancomycin 1,000 MG in sodium chloride 0.9% 250 ML 250 MG IV (16:57)
[2021-06-11] MEDS: aztreonam 2,000 MG in sodium chloride 0.9% (plus) 100 ML 200 MG IV (17:17)
--- NOTE | 2021-06-11 17:37 | P.HP_ITS ---
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 Patient has been given morphine and Ativan in the ER. As per the nursing staff patient was very demanding and was not willing to try BiPAP until ER MD gave him opioids. I called his who was able to tell me that his shortness of breath has been getting worse for last 4 weeks, he required multiple visits in the ER because of nonavailability of ICU beds he was discharged home, today he was complaining of severe shortness of breath associated with chest pain that is why he EMS was called again. Review of records: He had prolonged hospitalization in the past when he required pulmonology, nephrology and cardiology consultation he has poor ejection fraction about 30%, severe COPD, recurrent right-sided chest pain pleuritic, improved with doxycycline in the past, he has severe back pain and opiate dependent, opioids have been weaned off gradually, he was taking oxycodone and morphine high doses. On previous admission HIT panel was sent secondary to thrombocytopenia, HIT panel antibodies negative Initially in the ER his blood pressure was 154/85, after getting morphine and Ativan his blood pressure is ranging between 70s and 90s millimeter mercury, will transfer him to ICU, will give lowest dose of Narcan 0.1 mg IV push Currently he is on AVAPS EPAP 8 maximum and straight pressure 30 pulling tidal v olume 3 50-400ml Repeating blood gas right now I did speak with his who wanted me to notify Dr. Kam. I also spoke with Dr. Kam when I evaluated the patient in the ER Review of Systems General: Reports: ROS unobtainable due to medical condition (Hypercapnic respiratory failure) Medications/Allergies Home Medications Medication Instructions Recorded Confirmed Last Taken Type albuterol sulfate 2.5 mg INHALATION QID PRN 06/21/19 06/11/21 08/23/19 History butenafine 1 % topical cream 1 applic TOPICAL BID PRN 06/21/19 06/11/21 08/23/19 History cyclosporine 0.05 % eye drops 1 drop OPHTHALMIC (EYE) Q12H 06/21/19 06/11/21 08/23/19 History epinephrine 0.3 mg/0.3 mL 0.3 mg IM ONCE PRN 06/21/19 06/11/21 Unknown History injection, auto-injector mupirocin 2 % topical ointment 1 applic TOPICAL BID #22 gm 01/18/20 06/11/21 Unknown Rx walker with seat /wheels #1 ea 01/20/20 06/11/21 Unknown Rx albuterol sulfate 90 mcg/actuation See Rx Instructions .ROUTE 03/26/20 06/11/21 Unknown Rx aerosol inhaler .COMPLEX #8.5 gm azelastine 1 - 2 spray INTRANASAL BID 07/05/20 06/11/21 06/10/21 History naloxone [Narcan] 4 mg INTRANASAL Q2M PRN #2 ea 07/24/20 06/11/21 Unknown Rx budesonide 0.5 mg/2 mL suspension 0.5 mg INHALATION BID 90 Days #360 08/02/20 06/11/21 Unknown Rx for nebulization ml ipratropium 0.5 mg-albuterol 3 mg See Rx Instructions .ROUTE 08/02/20 06/11/21 Unknown Rx (2.5 mg base)/3 mL nebulization .COMPLEX #360 ml soln levocetirizine 5 mg tablet 5 mg PO DAILY 10/03/20 06/11/21 06/10/21 History losartan 25 mg tablet 25 mg PO DAILY #90 tab 10/05/20 06/11/21 06/10/21 Rx montelukast 10 mg tablet See Rx Instructions .ROUTE 10/31/20 06/11/21 06/10/21 Rx .COMPLEX #30 tab magnesium L-lactate 84 mg See Rx Instructions .ROUTE 12/26/20 06/11/21 06/10/21 Rx tablet,extended release .COMPLEX #30 tab honey 80 % topical gel 1 applic TOPICAL BID 30 Days #44 ml 02/07/21 06/11/21 Unknown Rx lidocaine HCl 2 % mucosal solution See Rx Instructions .ROUTE 03/13/21 06/11/21 Unknown Rx .COMPLEX #100 ml pantoprazole 40 mg tablet,delayed See Rx Instructions .ROUTE 04/01/21 06/11/21 06/10/21 Rx release .COMPLEX #30 tab doxycycline hyclate 100 mg tablet 100 mg PO BID 5 Days #10 tab 04/22/21 06/11/21 06/10/21 Rx metoprolol tartrate 25 mg tablet 25 mg PO BID #60 tab 04/29/21 06/11/21 06/10/21 Rx potassium chloride 20 mEq See Rx Instructions .ROUTE 05/27/21 06/11/21 06/10/21 Rx tablet,extended release .COMPLEX #120 tab aspirin 81 mg tablet,delayed 81 mg PO DAILY #90 tab 05/30/21 06/11/21 06/10/21 Rx release atorvastatin 40 mg tablet 40 mg PO DAILY #90 tab 05/30/21 06/11/21 06/10/21 Rx furosemide 20 mg tablet 40 mg PO BID #120 tab 05/30/21 06/11/21 06/10/21 Rx spironolactone 25 mg tablet 25 mg PO DAILY #30 tab 05/30/21 06/11/21 06/10/21 Rx azithromycin 500 mg PO EVERY OTHER DAY 06/11/21 06/11/21 06/10/21 History morphine 30 mg PO TID PRN 06/11/21 06/11/21 Unknown History oxycodone [OxyContin] 60 mg PO BID 06/11/21 06/11/21 Unknown History prednisone 5 mg PO DAILY 06/11/21 06/11/21 06/10/21 History Allergies Allergy/AdvReac Type Severity Reaction Status Date / Time levofloxacin Allergy Severe ALGY-Difficulty Verified 06/11/21 14:01 Breathing methadone Allergy Severe ALGY-Swell Verified 06/11/21 14:01 Lip/Tongue/Throat bee venom protein (honey bee) Allergy ALGY-Anaphy Verified 06/11/21 14:01 laxis Penicillins Allergy Unknown Verified 06/11/21 14:01 fentanyl AdvReac ADR-Shakine Verified 06/11/21 14:01 ss gabapentin [From Neurontin] AdvReac Unknown Verified 06/11/21 14:01 PFSH Acute PFSH: Medical History Acquired bilateral hammer toes Acute diverticulitis Bee sting allergy Bilateral bunions Bulging lumbar disc Chronic bilateral low back pain Chronic erythematous candidosis Chronic low back pain Chronic nausea Chronic respiratory failure with hypoxia COPD (chronic obstructive pulmonary disease) Degenerative disc disease Dysphagia, unspecified Emphysema, unspecified GERD (gastroesophageal reflux disease) History of colon cancer Hypersomnia Lesion of true vocal cord Lower extremity edema Mixed hyperlipidemia Nicotine dependence, cigarettes, uncomplicated Nocturia Onychomycosis MANISH (obstructive sleep apnea) Other specified joint disorders, right shoulder PAD (peripheral artery disease) Polyneuropathy, unspecified Sebaceous cyst of scrotum Segmental and somatic dysfunction of rib cage Blanco-Isaac syndrome Vasomotor rhinitis Venous reflux Surgical History H/O foot surgery H/O hernia repair History of back surgery History of cholecystectomy History of esophagogastroduodenoscopy (EGD) History of partial colectomy Family History Mother , Age 73 Hodgkin disease Cancer Father , Age 67 Stroke Social History Quit status (tobacco): considering quitting Second hand smoke exposure: Yes Smoking risk assessment/counseling performed?: Yes Alcohol intake: never Desire information about alcohol rehabilitation?: No Counseling given: No Desire information about substance/drug rehabilitation?: No Counseling given: Yes Lives independently: Yes Household members: spouse Marital status: Highest education level completed: Some College, No Degree service: No Current occupational status: retired History of recent travel: No Current gender identity: Male Vitals/I&O/Wt Last Vital Signs Temp 98.7 F 06/11/21 14:02 Pulse 68 06/11/21 17:22 Resp 16 06/11/21 14:29 BP 154/85 06/11/21 17:22 Pulse Ox 88 L 06/11/21 17:22 Weight last 48 hrs Weight 114.759 kg Physical Exam Narrative: EXAM NARRATIVE: Patient was hunched over with AVAPS mask on his face Soft blood pressure He opens his eyes to painful stimuli temporarily Not able to follow my commands Assisted diminished bilateral breath sounds with wheezing Distended abdomen, pain stimulator left lower quadrant Venous stasis dermatitis Multiple skin tattoos Clinically does not look fluid overloaded Unkept appearance Data : 06/11/21 14:12 06/11/21 14:12 Micro: Microbiology 06/11/21 15:50 Blood Culture - Preliminary Blood SPECIMEN COLLECTED 06/11/21 14:11 Blood Culture - Preliminary Blood SPECIMEN COLLECTED A&P Assessment and plan (1) Acute and chronic respiratory failure with hypercapnia: Status: Acute (2) Pneumonia: Status: Acute (3) Compression fracture of thoracic vertebra: Status: Acute (4) Cardiomyopathy: Status: Acute Qualifiers: Cardiomyopathy type: unspecified Qualified Code(s): I42.9 - Cardiomyopathy, unspecified (5) Chronic erythematous candidosis: Status: Chronic (6) Impaired mobility and activities of daily living: Status: Chronic (7) Bulging lumbar disc: Status: Acute (8) Chronic bilateral low back pain: Status: Chronic Qualifiers: Sciatica presence: with sciatica Sciatica laterality: bilateral sciatica Qualified Code(s): M54.42 - Lumbago with sciatica, left side; M54.41 - Lumbago with sciatica, right side; G89.29 - Other chronic pain (9) Dysphagia, unspecified: Status: Chronic Qualifiers: Dysphagia type: unspecified Qualified Code(s): R13.10 - Dysphagia, unspecified (10) COPD (chronic obstructive pulmonary disease): Status: Chronic Qualifiers: COPD type: unspecified COPD Qualified Code(s): J44.9 - Chronic obstructive pulmonary disease, unspecified Additional A&P Information End-stage COPD AVAPS/ventilator dependent, steroid dependent Opioid dependent Patient has multifactorial hypercapnic acute on chronic respiratory failure Patient received opioids and Ativan in the ER which made him obtunded, will give him 0.1 mg IV push of Narcan He is high risk for intubation, did discuss goals of care with his who asked me to notify Dr. Kam, she would like to make final decision after talking with Dr. Kam Repeat ABG in the ER First ABG pH 7.33 with PCO2 72 Currently on AVAPS EPAP 8 maximum instructed pressure 30, minimum 20 tidal volume 3 50-400 Transfer him to ICU High risk intubation Patient is opioid dependent has been very demanding in the ER to receive opioids He does have compression fracture of his spine which is chronic no spinal cord compression symptoms reported: Sensory exam is limited We will place Ventura catheter He has ischemic cardiomyopathy, he was diagnosed with cor pulmonale on previous admission, currently does not look fluid overloaded, we will keep him on low- dose Lasix for now, monitor for worsening alkalosis Guarded prognosis I did discuss palliative care/DNR/DNI with his but she insisted on speaking with Dr. Negin guillen N.p.o. 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[employer] [facility] Diagnoses Acute and chronic respiratory failure with hypercapnia J96.22 Pneumonia J18.9 Compression fracture of thoracic vertebra S22.000A Cardiomyopathy I42.9 Cardiomyopathy type: unspecified Chronic erythematous candidosis B37.9 Impaired mobility and activities of daily living Z74.09; Z78.9 Bulging lumbar disc M51.26 Chronic bilateral low back pain M54.42; M54.41; G89.29 Sciatica presence: with sciatica Sciatica laterality: bilateral sciatica Dysphagia, unspecified R13.10 Dysphagia type: unspecified COPD (chronic obstructive pulmonary disease) J44.9 COPD type: unspecified COPD
[2021-06-11 18:43] LABS: Procalcitonin 0.02 ng/mL (0-0.5)
--- NOTE | 2021-06-11 19:30 | PC.NURSE ---
received report. patient on bipap, 28%. patient has been very demanding and agitated. was given 1 mg ativan IVP and has been somnolent since. admitting physician has ordered Narcan .1mg IVP. will administer that shortly. Vital stable.
[2021-06-11 19:47] LABS: ABG PH Result 7.33 (7.35-7.45); Arterial Blood Gas Hematocrit 42.1 % (42-52); Base Excess ABG 8.8 mmol/L (-2.0-2.0); Blood Gas Allen Test Pos; Blood Gas Sample Site Radial, right; Blood Gas Sample Type Arterial; HCO3 ABG 37.7 mmol/L (22-26); Oxygen Device BIPAP; PO2 ABG 69.8 mmHg (80.0-100.0)
[2021-06-11 19:49] LABS: ABG PCO2 71.8 mmHg (35-45)
[2021-06-11] MEDS: naloxone 0.4 mg/ml SDV 0.1 MG IVP (20:06)
--- NOTE | 2021-06-11 20:10 | PC.NURSE ---
patient giving .1 mg Narcan and became more awake fighting with the medical equipment and nurse
--- NOTE | 2021-06-11 20:11 | ECG_ITS ---
[facility] Test Date: 2021-06-11 Pat Name: Jaime Olivares Department: Room: [facility] Gender: Male Telecommunicator: : 1950 Requested By: Samir Adame Order Number: [id number] Reading MD: Lilly Rowell M.D. Measurements Intervals [place] Rate: 66 P: 69 MO: 172 QRS: -66 QRSD: 96 T: 36 QT: 392 QTc: 412 Interpretive Statements SINUS RHYTHM PATTERN CONSISTENT WITH PULMONARY DISEASE INFERIOR MYOCARDIAL INFARCTION , OF INDETERMINATE AGE [40+ ms Q WAVE AND/OR ST/T ABNORMALITY IN II/aVF] Compared to ECG 06/11/2021 14:26:05 No significant changes Electronically Signed On 06-12-2021 0:17:12 PAINT TINTER by Lilly Rowell M.D. [email or web address]
[2021-06-11 21:03] LABS: Troponin 5 6HR 23.69 ng/L (0-15)
[2021-06-11 21:10] LABS: Troponin 5 6HR Delta -7.31 ng/L (0-12)
[2021-06-11] MEDS: enoxaparin 40 mg/0.4 mL Syringe SUBCUT (22:46)
[2021-06-11] MEDS: cefepime 2,000 MG in sodium chloride 0.9% (plus) 50 ML 100 MG IV (22:47)
[2021-06-11] MEDS: mupirocin oint 22 gm 1 APPLIC TOPICAL (22:47)
[2021-06-12] VITALS (79 sets, daily range): BP systolic 92–149; BP diastolic 58–124; PULSE 57–107; RESP 11–38; TEMP 36–36.5; O2SAT 86–99
[2021-06-12 03:11] LABS: ABG PH Result 7.33 (7.35-7.45); Arterial Blood Gas Hematocrit 43.7 % (42-52); Base Excess ABG 9.2 mmol/L (-2.0-2.0); Blood Gas Allen Test Pos; Blood Gas Sample Site Radial, right; Blood Gas Sample Type Arterial; Blood Gas Tidal Volume 0.45; HCO3 ABG 38.2 mmol/L (22-26); Oxygen Device BIPAP; PO2 ABG 80.1 mmHg (80.0-100.0)
[2021-06-12 03:15] LABS: ABG PCO2 72.2 mmHg (35-45)
[2021-06-12 04:41] LABS: Basophils % 0.2 %; Hematocrit 46.3 % (42.0-52.0); Hemoglobin 14.3 g/dL (11.7-16.6); Lymphocytes # 1.1 10^3/uL (0.8-4.8); Lymphocytes % 9.1 %; Mean Corpuscular HGB Conc 30.9 g/dL (30.0-36.0); Mean Corpuscular Hemoglobin 29.7 pg (28.0-34.0); Mean Corpuscular Volume 96.3 fl (80-94); Mean Platelet Volume 10.6 fL (7.4-10.4); Monocytes # 0.1 10^3/uL (0.2-0.9); Monocytes % 0.9 %; Neutrophils # 10.69 10^3/uL (1.8-7.7); Neutrophils % 89.4 %; Nucleated Red Blood Cells % 0 %; Platelet Count 238 10^3/cmm (130-400); Red Blood Count 4.81 10^6/uL (4.1-5.3); Red Cell Distribution Width 13.4 % (12.1-15.1)
[2021-06-12 05:15] LABS: Albumin Level 3.9 g/dL (3.5-5.2); Alkaline Phosphatase 128 IU/L (40-130); Blood Urea Nitrogen 14 mg/dL (8-23); Calcium 8.5 mg/dL (8.5-10.5); Carbon Dioxide 30 mmol/L (22-29); Chloride 93 mmol/L (98-107); Globulin 3.3 g/dL (1.3-4.6); Glomerular Filtration Rate 133.6 mL/min (90-130); Glucose 130 mg/dL (65-115); Osmolality Calculated 282 mOsm/kg (285-295); Sodium 135 mmol/L (136-145); Total Bilirubin 0.6 mg/dL (0.15-1.2); Total Protein 7.2 g/dL (6.6-8.7)
--- NOTE | 2021-06-12 05:15 | PC.NURSE ---
Patient refusing to keep BiPAP on after explaining that his PCO2 levels are high. Attempted to give patient a break from BiPAP with non rebreather mask and he refused to keep any oxygen on. Patient began yelling stating he did not need to keep oxygen on 05/01. Further explanation given to patient on the need for continuos oxygen. Patient states he wants to go home. Patient advised he would need to sign AMA paperwork if he continues to deny medical care and wants to leave against medical advice. Physician contacted and orders for one time does of xanax 0.25mg given. No opioids due to patient having to receive narcan in emergency department.
[2021-06-12 05:16] LABS: Alanine Aminotransferase 11 U/L (0-41); Anion Gap 17.5 (5-19); Aspartate Amino Transferase 20 U/L (0-40); C Reactive Protein 2.4 mg/L (0.0-4.9); Potassium 5.5 mmol/L (3.5-5.1)
--- NOTE | 2021-06-12 05:39 | PC.NURSE ---
Physician canceled ordered for PO xanax and is placing an order for Precedex drip.
[2021-06-12] MEDS: dexmedeTOMIDine 0.9 % NaCL 400 MCG/100 ML PREMIX 5.74 MCG IV (05:48)
[2021-06-12] MEDS: aztreonam 2,000 MG in sodium chloride 0.9% (plus) 100 ML 200 MG IV ×2 (05:48→16:03)
--- NOTE | 2021-06-12 07:25 | PC.NURSE ---
Precedex drip started. Patient wearing BiPAP mask and resting comfortably.
[2021-06-12] MEDS: budesonide 0.5 mg/2 mL Neb INHALATION ×2 (07:59→20:39)
[2021-06-12] MEDS: ipratropium-albuterol 3 mL Neb INHALATION ×3 (07:59→20:39)
[2021-06-12] MEDS: sennosides-docusate Tablet 1 TAB PO (08:57)
[2021-06-12] MEDS: atorvastatin 40 mg Tablet PO (08:57)
[2021-06-12] MEDS: montelukast sodium 10 mg Tablet PO (08:57)
[2021-06-12] MEDS: aspirin 81 mg EC Tablet PO (08:57)
[2021-06-12] MEDS: mupirocin oint 22 gm 1 APPLIC TOPICAL ×2 (09:14→17:49)
--- NOTE | 2021-06-12 09:49 | PC.CHAP ---
Pastoral Care Encounter/Spiritual Assessment Type of Contact [] Declined paver layer visit [] Patient/Family/Request visit [] Outpatient visit [] Follow-up visit [] Physician referral [] Code/Alert [x] Routine visit [] Staff referral [] Actively dying [] Patient sleeping [] Family support [] [] Out of room [] Palliative care [] [] Receiving care in room [] Pre-surgical visit [] Trauma [] Long length of stay [x] ICU visit [x] Other: Relational/Emotional Strength [] Patient feels connected with others/family/visitors/staff [] Distress [] Loneliness/isolation [] Abandonment Spirituality of Patient [] Person of Jessica [] Attends Restorationism of their Jessica [] Believes in Prayer [] Reads Bible or Advent materials [] There are Spiritual issues to be addressed 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 Interventions [x] Prayer [] Active listening [] Non-anxious presence [] Spiritual/emotional support [] Crisis/trauma care [] Spiritual counseling [] Bereavement support [] Provided bereavement packet [] Provided Bible/devotional materials [] Provided toy/stuffed animal, coloring book to patient or family member [] Provided Communion [] Anointing/[place] [] Salvation [x] Completed spiritual assessment [] Other: Impact on Illness or Injury [] Angry [] Fearful [] Anxious [] Often cries [] Exhaustion [] Unable to work [] Unable to attend cheondoism [] Unable to walk/stand [] Unable to read [] Unable to drive [] Unable to eat/drink [] Unable to sleep [] Unable to be with family [] Patient intubated [] Other: Summary Time spent with patient
[2021-06-12] MEDS: cefepime 2,000 MG in sodium chloride 0.9% (plus) 50 ML 100 MG IV (10:28)
[2021-06-12] MEDS: oxyCODONE 5 mg IR Tab/Cap 10 MG PO (11:35)
--- NOTE | 2021-06-12 12:19 | PM.PN ---
Subjective Subjective: Interval history: Yesterday patient responded well to Narcan 0.1 mg IV push, he woke up, repeat blood gas showed slight improvement in PCO2 however pH did not normalize This morning he was given Ativan, was started on Precedex with BiPAP however he took off his BiPAP treatment first, when I evaluated him he was on 5 L nasal cannula, eating his breakfast and he was requesting coffee with 6 sugar He is repeatedly asking for his opioids For now I have reduce the dosages of his oxycodone and morphine Output has not been calculated accurately Leukocytosis trending down As per the he has been going to [place] to get his opioids prescription filled regularly, patient is stating that current regimen is not helping him at all He has not used AVAPS for quite some time at home High risk for intubation and readmissions Potassium high however sample is hemolyzed Afebrile Vitals/I&O/Wt Last Vital Signs Temp 98.7 F 06/11/21 19:00 Pulse 78 06/12/21 07:50 Resp 19 H 06/12/21 11:35 BP 126/80 06/11/21 20:13 Pulse Ox 90 06/12/21 11:35 06/11/21 06/12/21 06/12/21 22:59 06:59 14:59 Intake Total 350 / 350 290 / 640 407.758 / 407.758 Balance 350 / 350 290 / 640 407.758 / 407.758 Weight last 48 hrs Weight 114.759 kg Physical Exam Narrative: EXAM NARRATIVE: Patient was eating breakfast when entered the room he was on 5 L nasal cannula He is not using his respiratory sensory muscles As soon as he was done with his breakfast he started asking for sugar in his coffee and then went back to sleep right away Hemodynamically stable Precedex drip has been weaned off Unkept appearance Very diminished bilateral breath sounds, I am not able to hear any wheezing or rhonchi due to diminished airflow Nonfocal neuro exam Seems very lethargic and fatigued Multiple skin tattoos Clinically does not look fluid overloaded Data : 06/12/21 04:03 06/12/21 04:03 Micro: Microbiology 06/11/21 15:50 Blood Culture - Preliminary Blood SPECIMEN COLLECTED 06/11/21 14:11 Blood Culture - Preliminary Blood SPECIMEN COLLECTED A&P Assessment and plan (1) Acute and chronic respiratory failure with hypercapnia: Status: Acute (2) Pneumonia: Status: Acute (3) Compression fracture of thoracic vertebra: Status: Acute (4) COPD (chronic obstructive pulmonary disease): Status: Chronic Qualifiers: COPD type: unspecified COPD Qualified Code(s): J44.9 - Chronic obstructive pulmonary disease, unspecified (5) Dysphagia, unspecified: Status: Chronic Qualifiers: Dysphagia type: unspecified Qualified Code(s): R13.10 - Dysphagia, unspecified (6) Lesion of true vocal cord: Status: Acute (7) MANISH (obstructive sleep apnea): Status: Acute (8) Opiate dependence: Status: Acute Additional A&P Information This morning patient is saturating well on 5 L nasal cannula Precedex drip has been turned off I would keep him on lowest possible dose of opioids for now Patient has not used trilogy/AVAPS at home for quite some time, He is threatening to leave AMA if we do not entertain his demands We will keep him in ICU as he is high risk for intubation and respiratory arrest Right lower lobe consolidation seems slightly dense however no significant change as compared to previous x-ray, I do suspect he has chronic aspiration changes in lung parenchyma He still has guarded prognosis considering severe COPD, It is a big challenge to address his pain without causing further deterioration of his chronic hypercapnic hypoxic respiratory failure We will follow-up with Dr. Kam As per his he has been regularly going to his pain management clinic in [place] Full code I will put him on mechanical soft diet for his dysphagia, will get another speech eval DVT prophylaxis: Lovenox Attestations Medical Necessity Statement*: Continue ICU management Time Spent in Patient Care: less than 15 minutes Coding Level of Care Code Acute Ambulatory Technologist for [facility] Fwd Diagnoses Acute and chronic respiratory failure with hypercapnia J96.22 Pneumonia J18.9 Compression fracture of thoracic vertebra S22.000A COPD (chronic obstructive pulmonary disease) J44.9 COPD type: unspecified COPD Dysphagia, unspecified R13.10 Dysphagia type: unspecified Lesion of true vocal cord J38.3 MANISH (obstructive sleep apnea) G47.33 Opiate dependence F11.20
--- NOTE | 2021-06-12 13:20 | PC.RESP ---
pt refusing ABG
[2021-06-12] MEDS: morphine IR 15 mg Tablet PO ×2 (13:56→23:39)
[2021-06-12 14:38] LABS: Adenovirus Not Detected (NOT DETECT); Chlamydia Pneumoniae Not Detected (NOT DETECT); Coronavirus 229E,HKU1,NL63,OC4 Not Detected (NOT DETECT); Human Metapneumovirus Not Detected (NOT DETECT); Human Rhinovirus/Enterovirus Not Detected (NOT DETECT); Influenza A Not Detected (NOT DETECT); Influenza A H1 Not Detected (NOT DETECT); Influenza A H1-2009 Not Detected (NOT DETECT); Influenza A H3 Not Detected (NOT DETECT); Influenza B Not Detected (NOT DETECT); Mycoplasma Pneumoniae Not Detected (NOT DETECT); Parainfluenza Virus Type 1 Not Detected (NOT DETECT); Parainfluenza Virus Type 2 Not Detected (NOT DETECT); Parainfluenza Virus Type 3 Not Detected (NOT DETECT); Parainfluenza Virus Type 4 Not Detected (NOT DETECT); Respiratory Syncytial Virus A Not Detected (NOT DETECT); Respiratory Syncytial Virus B Not Detected (NOT DETECT); SARS-COV-2 Not Detected (NOT DETECT)
[2021-06-12] MEDS: ketorolac 30 mg/mL INJ 15 MG IVP ×2 (16:37→23:39)
--- NOTE | 2021-06-12 18:49 | PC.NURSE ---
Shift Note Frequent safety and comfort rounds continue. Orders and/or nursing care completed as indicated. Patient monitored for response to intervention and treatment(s). Education provided includes medications, new orders, and care plan. Patient verbalized understanding. Patient stated that he is in pain. Patient stated that if he does not get pain medications he will leave AMA. Patient stated that the only reason he came to the hospital is to get pain medications. Nurse got orders for pain medications. Patient stated that he needs more pain medications. Nurse educated about need to space out two pain medications. Patient stated that the nurses are inadequate and used profanity to demand more pain medications. Nurse gave the patient the second PRN pain medication. Patient stated the he loves the nurse, that the nurse is very kind, and that the nurse is doing a good job. visited patient. Patient stated that nurse was kind and did a good job.
[2021-06-12] MEDS: enoxaparin 40 mg/0.4 mL Syringe SUBCUT (20:22)
[2021-06-12] MEDS: lidocaine 5% Patch 1 PATCH TOPICAL (20:22)
[2021-06-12] MEDS: cefepime 2,000 MG in sodium chloride 0.9% (plus) 50 ML 50 MG IV (21:16)
[2021-06-13] VITALS (112 sets, daily range): BP systolic 90–135; BP diastolic 49–96; PULSE 72–202; RESP 13–33; TEMP 36.4–36.6; O2SAT 84–100
[2021-06-13] MEDS: oxyCODONE 5 mg IR Tab/Cap 10 MG PO (03:56)
[2021-06-13] MEDS: aztreonam 2,000 MG in sodium chloride 0.9% (plus) 100 ML 200 MG IV (03:57)
[2021-06-13 04:11] LABS: Basophils % 0.1 %; Hemoglobin 12.1 g/dL (11.7-16.6); Lymphocytes % 11.6 %; Mean Corpuscular Hemoglobin 29.4 pg (28.0-34.0); Mean Corpuscular Volume 94.7 fl (80-94); Mean Platelet Volume 10.7 fL (7.4-10.4); Monocytes # 1.3 10^3/uL (0.2-0.9); Monocytes % 7.8 %; Neutrophils # 13.65 10^3/uL (1.8-7.7); Neutrophils % 80.1 %; Nucleated Red Blood Cells % 0 %; Platelet Count 183 10^3/cmm (130-400); Red Blood Count 4.12 10^6/uL (4.1-5.3); Red Cell Distribution Width 13.2 % (12.1-15.1); White Blood Count 17.1 10^3/uL (4.0-10.0)
[2021-06-13 04:31] LABS: Anion Gap 7.4 (5-19); Blood Urea Nitrogen 21 mg/dL (8-23); Calcium 7.9 mg/dL (8.5-10.5); Carbon Dioxide 37 mmol/L (22-29); Chloride 98 mmol/L (98-107); Glomerular Filtration Rate 164.9 mL/min (90-130); Glucose 122 mg/dL (65-115); Osmolality Calculated 290 mOsm/kg (285-295); Potassium 4.4 mmol/L (3.5-5.1); Sodium 138 mmol/L (136-145)
[2021-06-13] MEDS: ketorolac 30 mg/mL INJ 15 MG IVP ×2 (08:45→16:42)
[2021-06-13] MEDS: predniSONE 20 mg Tablet 40 MG PO (08:45)
[2021-06-13] MEDS: montelukast sodium 10 mg Tablet PO (08:45)
[2021-06-13] MEDS: sennosides-docusate Tablet 1 TAB PO (08:46)
[2021-06-13] MEDS: lidocaine 5% Patch 1 PATCH TOPICAL (08:46)
[2021-06-13] MEDS: atorvastatin 40 mg Tablet PO (08:46)
[2021-06-13] MEDS: aspirin 81 mg EC Tablet PO (08:46)
[2021-06-13] MEDS: mupirocin oint 22 gm 1 APPLIC TOPICAL (08:47)
[2021-06-13] MEDS: morphine IR 15 mg Tablet PO (08:48)
[2021-06-13] MEDS: budesonide 0.5 mg/2 mL Neb INHALATION (08:56)
[2021-06-13] MEDS: ipratropium-albuterol 3 mL Neb INHALATION ×2 (08:56→14:39)
--- NOTE | 2021-06-13 08:59 | PC.SOCIAL ---
Called [facility] in [place] to verify pain management regimen per Dr Whiting request. Nurse will fax a copy of his pain pump regimen. This will be given to Dr Whiting and placed in chart. Oxycontin 60 mg one tab Q12 hrs PRN Morphine 30mg one tab 3 times daily PRN
--- NOTE | 2021-06-13 09:12 | CT_ITS ---
WS: [id number] CT CHEST TECHNIQUE: Noncontrast CT of the chest with coronal and sagittal reformatted images. CLINICAL INFORMATION: rib pain hypoxia COMPARISON: CT May 07, 2021 DLP: [address] scans at [facility] use at least one of these dose optimization techniques: automated e xposure control; mA and/or kV adjustment per patient size (includes targeted exams where dose is matc hed to clinical indication); or iterative reconstruction. FINDINGS: Moderate chronic emphysematous changes. Chronic appearing right rib fractures with callus formation S light right basilar atelectasis.Small amount of new hazy infiltrate in right lower lobe. Subsegmental atelectasis in the lingula. Round atelectasis left lower lobe along the mediastinum is unchanged. Aortic calcification. Coronary calcification. No mediastinal or hilar lymphadenopathy. No axillary ly mphadenopathy. Cholecystectomy clips. Normal right adrenal gland. Left adrenal adenoma measuring 2.2 CM. Left renal cyst upper pole measuring 3.3 CM. Small esophageal hiatal hernia. Epidural catheter visualized in the mid thoracic spine. Anterior wedging with compression involving T 5 and T6. This is progressed compared to May 07, 2021 with compression superior endplates T5 and T6. Fracture cleft visualized at T6 superior endplate is new. Loss of approximately 40% vertebral vignesh dy height at T6. Loss of approximately 30% vertebral body height at T5. No retropulsion. Progress endplate sclerosis at T5-T6. Superimposed discitis is not entirely excluded. Recommend corre lation with infection. No visualized paravertebral inflammatory changes. CT/CT chest wo con [id number] IMPRESSION: 1. Moderate chronic erythematous changes. 2. Slight right basilar atelectasis. Small amount of new hazy infiltrate in ri ght lower lobe. No focal consolidation. 3. Round atelectasis left lower lobe along the posterior mediastinum is unchan ged. 4. Chronic right rib fractures with callus formation unchanged. 5. Progressed compression fractures with anterior wedging at T5 and T6 with co mpression of the superior endplates. No retropulsion. Loss of approximately 40% vertebral body height at T6. Compression at these levels has progressed compar ed to May 07, 2021. 6. Progress endplate sclerosis at T5-T6. Superimposed discitis is not entirely excluded. Recommend correlation with infection. No visualized paravertebral in flammatory changes.
--- NOTE | 2021-06-13 09:24 | P.PN_ITS ---
Subjective Subjective: Interval history: I did discuss this case with Dr. Kam yesterday This morning I also reviewed and reconciled his opioid regimen from [facility] pain clinic He has a pain pump as well OxyContin 60 mg every 12 as needed Morphine 30 mg every 8 hours as needed pain pump data will be transferred as well It is a challenge to manage his pain he has multiple calluses around his ribs from previous fractures, T6 fracture, I did discuss this case with Dr. Call he recommended follow-up with [place] pain clinic He does become obtunded if we give him his prescribed opioid dosage and there is a reason he came in with hypercapnic respiratory failure And then he refuses BiPAP This morning when entered the room he was sleeping however when I woke him up he started misbehaving and stated that his pain is not adequately treated and he wants to go home I reassured him that I would verify his pain medication dosages with the clinic, try to rearrange AVAPS/trilogy at home before his discharge because of his severe COPD is at high risk for intubation and respiratory arrest Vitals/I&O/Wt Last Vital Signs Temp 97.5 F L 06/12/21 20:00 Pulse 89 06/13/21 09:06 Resp 18 06/13/21 08:50 BP 105/61 06/13/21 04:00 Pulse Ox 95 06/13/21 08:50 06/12/21 06/13/21 06/13/21 22:59 06:59 14:59 Intake Total 180 / 1067.758 240 / 1307.758 Output Total 375 / 925 Balance 180 / 517.758 -135 / 382.758 Weight last 48 hrs Weight 114.759 kg Physical Exam Narrative: EXAM NARRATIVE: Patient was sleeping when I entered the room When I woke him up he started complaining about rib pain Is saturating well on 5 L nasal cannula He has diminished airflow that makes it hard to detect any adventitious sounds Soft abdomen Does not look fluid overloaded Chest congestion Unkept appearance Nonfocal neuro exam Data : 06/13/21 03:40 06/13/21 03:40 Micro: Microbiology 06/11/21 15:50 Blood Culture - Preliminary Blood NEGATIVE TO DATE 06/11/21 14:11 Blood Culture - Preliminary Blood NEGATIVE TO DATE 06/11/21 03:40 Gram Stain - Final Sputum - Expectorated Sputum 06/12/21 09:20 MRSA Culture - Final Nose A&P Assessment and plan (1) Opiate dependence: Status: Acute (2) Acute and chronic respiratory failure with hypercapnia: Status: Acute (3) Pneumonia: Status: Acute (4) Compression fracture of thoracic vertebra: Status: Acute (5) Nicotine addiction: Status: Acute (6) Cardiomyopathy: Status: Acute Qualifiers: Cardiomyopathy type: unspecified Qualified Code(s): I42.9 - Cardiomyopathy, unspecified (7) Chronic erythematous candidosis: Status: Chronic (8) Bulging lumbar disc: Status: Acute (9) Chronic bilateral low back pain: Status: Chronic Qualifiers: Sciatica presence: with sciatica Sciatica laterality: bilateral sciatica Qualified Code(s): M54.42 - Lumbago with sciatica, left side; M54.41 - Lumbago with sciatica, right side; G89.29 - Other chronic pain (10) Dysphagia, unspecified: Status: Chronic Qualifiers: Dysphagia type: unspecified Qualified Code(s): R13.10 - Dysphagia, unspecified Additional A&P Information Acute on chronic hypercapnic hypoxic respiratory failure we will try to rearrange AVAPS/trilogy, will coordinate with business planner Currently doing well on 5 L nasal cannula Discontinue aztreonam tomorrow if leukocytosis trended down, continue cefepime Opiate dependent: Did verify his opioid regimen with [facility] pain clinic he takes OxyContin 60 mg twice a day and morphine 30 mg every 8 hours as needed along his pain pump opioid dosages T6 fracture, multiple rib calluses Recommend following up with pain management clinic at [place] For now I would use morphine 30 mg every 8 hours and OxyContin 40 mg every 12 He is high risk for intubation and respiratory arrest, we will keep him in ICU for now Repeating chest CT Dr. Call recommended [place] [facility] clinic for his chronic fractures Ketorolac and lidocaine patches added as well Dr. Kam did discuss intercostal nerve block with anesthesiologist Dr. Krueger, she recommended against it as this would be a temporary measure Consistent carb diet Sliding scale DVT prophylaxis Lovenox Patient is full code Attestations Medical Necessity Statement*: Continue ICU management Time Spent in Patient Care: 16 - 35 minutes Coding Level of Care Code Acute Business Practices Officer for Chg Fwd Diagnoses Opiate dependence F11.20 Acute and chronic respiratory failure with hypercapnia J96.22 Pneumonia J18.9 Compression fracture of thoracic vertebra S22.000A Nicotine addiction F17.200 Cardiomyopathy I42.9 Cardiomyopathy type: unspecified Chronic erythematous candidosis B37.9 Bulging lumbar disc M51.26 Chronic bilateral low back pain M54.42; M54.41; G89.29 Sciatica presence: with sciatica Sciatica laterality: bilateral sciatica Dysphagia, unspecified R13.10 Dysphagia type: unspecified
[2021-06-13] MEDS: oxyCODONE 20 mg ER (12 HR) Tablet 40 MG PO (10:22)
[2021-06-13] MEDS: cefepime 2,000 MG in sodium chloride 0.9% (plus) 50 ML 50 MG IV (10:23)
--- NOTE | 2021-06-13 16:54 | PM.DCS ---
Discharge Providers Date of Admission: 06/11/21 21:08 Date of Discharge: June 13, 2021 Attending Provider at Admission: Kerwin Whiting MD Attending Provider at Discharge: Kerwin Whiting MD Primary Care Provider: TINA Eastman Diagnoses at Discharge Discharge Diagnosis (1) Opiate dependence: Status: Acute (2) Acute and chronic respiratory failure with hypercapnia: Status: Acute (3) Pneumonia: Status: Acute (4) Compression fracture of thoracic vertebra: Status: Acute (5) Nicotine addiction: Status: Acute (6) Cardiomyopathy: Status: Acute Qualifiers: Cardiomyopathy type: unspecified Qualified Code(s): I42.9 - Cardiomyopathy, unspecified (7) Chronic erythematous candidosis: Status: Chronic (8) Bulging lumbar disc: Status: Acute (9) Chronic bilateral low back pain: Status: Chronic Qualifiers: Sciatica presence: with sciatica Sciatica laterality: bilateral sciatica Qualified Code(s): M54.42 - Lumbago with sciatica, left side; M54.41 - Lumbago with sciatica, right side; G89.29 - Other chronic pain (10) Dysphagia, unspecified: Status: Chronic Qualifiers: Dysphagia type: unspecified Qualified Code(s): R13.10 - Dysphagia, unspecified Reason for Visit Reason for Visit: RESPIRATORY DISTRESS/ CHEST PAIN Hospital Course Hospital Course History of Present Illness Jaime Olivares is a 71-year-old with a past medical history significant for hypertension, dyslipidemia, peripheral arterial disease, polyneuropathy, gastroesophageal reflux disease, obstructive sleep apnea, adenocarcinoma of colon s/p partial colectomy, 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 Patient has been given morphine and Ativan in the ER. As per the nursing staff patient was very demanding and was not willing to try BiPAP until ER MD gave him opioids. I called his who was able to tell me that his shortness of breath has been getting worse for last 4 weeks, he required multiple visits in the ER because of nonavailability of ICU beds he was discharged home, today he was complaining of severe shortness of breath associated with chest pain that is why he EMS was called again. Review of records: He had prolonged hospitalization in the past when he required pulmonology, nephrology and cardiology consultation he has poor ejection fraction about 30%, severe COPD, recurrent right-sided chest pain pleuritic, improved with doxycycline in the past, he has severe back pain and opiate dependent, opioids have been weaned off gradually, he was taking oxycodone and morphine high doses. On previous admission HIT panel was sent secondary to thrombocytopenia, HIT panel antibodies negative Initially in the ER his blood pressure was 154/85, after getting morphine and Ativan his blood pressure is ranging between 70s and 90s millimeter mercury, will transfer him to ICU, will give lowest dose of Narcan 0.1 mg IV push Currently he is on AVAPS EPAP 8 maximum and straight pressure 30 pulling tidal volume 3 50-400ml Repeating blood gas right now I did speak with his who wanted me to notify Dr. Kam. I also spoke with Dr. Kam when I evaluated the patient in the ER Hospital course: Patient was admitted for management of acute on chronic hypercapnic respiratory failure, he was put on BiPAP in the ER, he received Ativan and morphine which made him very drowsy and obtunded, I had to give him 0.1 mg of Narcan IV push which woke him up, as soon as he woke up he started demanding more opioids and ripped his BiPAP off. Next day he was on 5 L nasal cannula. He was very noncooperative throughout his hospitalization. He would curse at staff and his family members. He would demand opioids. With the help of discharge planners plan was devised to verify dosages of his opioids from [facility] pain clinic in [place], he takes OxyContin 60 mg twice daily as needed, morphine 30 mg 3 times a day as needed, pain pump data was also sent, we are his pain pump he gets morphine and bupivacaine 12, 2 2 5 mg/day. I did discuss this case with Dr. Call and Dr. Kam. Dr. Call would not intervene as he already follows up with pain clinic in [place]. He does have multiple rib calluses from previous fractures, T6 fracture. Dr. Kam recommended anti-inflammatory ketorolac and lidocaine patches which seem to slightly improve his symptoms. On 06/13 we contacted oxygen [employer], today they will deliver trilogy. Multiple phone calls were made to make sure he gets trilogy tonight. Patient is cursing the staff, family members and threatening to leave AMA. We tried our best to arrange trilogy tonight before his discharge. At 5 PM I was notified that trilogy will be delivered for sure. I am discharging him on 5 L nasal cannula, I have not added any extra opioids for him. He is planning to go to his pain management clinic in [place]. He does not wish to to follow-up with Dr. Bauer in [place]. I did discuss palliative care option with his , she asked me to touch base with Dr. Kam. Please discussed with Dr. Kam if he gets readmitted, he has severe COPD, his opiate dependence makes it very hard to treat his underlying conditions, if he does not get opioids he experiences excruciating pain. It is a very challenging situation. He is high risk for acute on chronic hypercapnic respiratory failure, cardiac/respiratory arrest. He has been very noncompliant, because of his noncompliance insurance company did take away his trilogy in July 2020. On Thursday Alivia Meléndez is going to initiate pre-CERT. this plan was discussed with the patient and his . Physical Exam Narrative: EXAM NARRATIVE: Patient was sleeping when I entered the room he dozes off pretty quickly while operating his android tablet When I woke him up he started complaining about rib pain Is saturating well on 5 L nasal cannula He has diminished airflow that makes it hard to detect any adventitious sounds Soft abdomen Does not look fluid overloaded Chest congestion Unkept appearance Nonfocal neuro exam Discharge Data Data Completed and Pending: Completed Studies During Hospitalization Category Date Time Status CT chest wo con 7 1250 Routine Cat Scan 06/13/21 09:12 Completed XR chest 1V edmar ble [id number] Stat Exams 06/11/21 14:51 Completed Pending at discharge Category Date Time Status Arterial Blood Ga s W/O Coox AM LABS Lab 06/14/21 04:00 Ordered Basic Metabolic P litzy AM LABS Lab 06/14/21 04:00 Ordered Blood Culture Sta t Lab 06/11/21 15:50 Results Complete Blood Co unt w/Auto AM LABS Lab 06/14/21 04:00 Ordered Phosphorus AM LAB S Lab 06/14/21 04:00 Ordered Sputum Culture an d Gram Stain Routi ne Lab 06/11/21 03:40 Results Labs from last 24 hours 06/13/21 06/13/21 03:40 03:40 WBC 17.1 H RBC 4.12 Hgb 12.1 Hct 39.0 L MCV 94.7 H MCH 29.4 MCHC 31.0 RDW 13.2 Plt Count 183 MPV 10.7 H Neut % (Auto) 80.1 Lymph % (Auto) 11.6 Louisa % (Auto) 7.8 Eos % (Auto) 0.0 Baso % (Auto) 0.1 Neut # (Auto) 13.65 H Lymph # (Auto) 2.0 Louisa # (Auto) 1.3 H Eos # (Auto) 0.0 Baso # (Auto) 0.0 Nucleated RBC % (a uto) 0 Nucleated RBCs # 0.0 Sodium 138 Potassium 4.4 Chloride 98 Carbon Dioxide 37 H Anion Gap 7.4 BUN 21 Creatinine 0.5 L GFR Calculation 164.9 H Glucose 122 H Calculated Osmolal ity 290 Calcium 7.9 L Vitals: Last Vital Signs Temp 97.8 F 06/13/21 16:30 Pulse 85 06/13/21 16:30 Resp 14 06/13/21 16:30 BP 105/85 06/13/21 16:30 Pulse Ox 91 06/13/21 16:30 Discharge Plan Discharge Patient Disposition: Home Condition: Good Prescriptions: Continued aspirin [Adult Aspirin Regimen] 81 mg tablet,delayed release (DR/EC) 81 mg PO DAILY Qty: 90 RF: 1 atorvastatin 40 mg tablet 40 mg PO DAILY Qty: 90 RF: 3 spironolactone 25 mg tablet 25 mg PO DAILY Qty: 30 RF: 3 albuterol sulfate 2.5 mg /3 mL (0.083 %) solution for nebulization 2.5 mg INHALATION QID PRN (Reason: Shortness Of Breath) RF: 0 butenafine [Lotrimin Ultra] 1 % cream 1 applic TOPICAL BID PRN (Reason: Allergic Reaction) RF: 0 epinephrine 0.3 mg/0.3 mL auto-injector 0.3 mg IM ONCE PRN (Reason: Allergic Reaction) RF: 0 Restasis MultiDose 0.05 % drops 1 drop ophthalmic (eye) Q12H RF: 0 mupirocin 2 % ointment 1 applic TOPICAL BID Qty: 22 RF: 2 levocetirizine [Xyzal] 5 mg tablet 5 mg PO DAILY RF: 0 (DME) walker with seat /wheels See Rx Instructions .Route .MEDSUPPLY Qty: 1 RF: 0 albuterol sulfate [ProAir HFA] 90 mcg/actuation HFA aerosol inhaler See Rx Instructions .ROUTE .COMPLEX Qty: 8.5 RF: 3 budesonide [Pulmicort] 0.5 mg/2 mL suspension for nebulization 0.5 mg INHALATION BID 90 Days Qty: 360 RF: 3 ipratropium-albuterol 0.5 mg-3 mg(2.5 mg base)/3 mL solution for nebulization See Rx Instructions .ROUTE .COMPLEX Qty: 360 RF: 3 losartan 25 mg tablet 25 mg PO DAILY Qty: 90 RF: 3 montelukast 10 mg tablet See Rx Instructions .ROUTE .COMPLEX Qty: 30 RF: 0 magnesium L-lactate [Magtab] 84 mg tablet extended release See Rx Instructions .ROUTE .COMPLEX Qty: 30 RF: 5 MediHoney (honey) 80 % gel 1 applic topical BID 30 Days Qty: 44 RF: 2 Lidocaine Viscous 2 % solution See Rx Instructions .ROUTE .COMPLEX Qty: 100 RF: 5 pantoprazole 40 mg tablet,delayed release (DR/EC) See Rx Instructions .ROUTE .COMPLEX Qty: 30 RF: 2 doxycycline hyclate 100 mg tablet 100 mg PO BID 5 Days Qty: 10 RF: 0 metoprolol tartrate 25 mg tablet 25 mg PO BID Qty: 60 RF: 5 potassium chloride 20 mEq tablet extended release See Rx Instructions .ROUTE .COMPLEX Qty: 120 RF: 3 prednisone 5 mg tablet 5 mg PO DAILY RF: 0 azithromycin 500 mg tablet 500 mg PO EVERY OTHER DAY RF: 0 morphine 30 mg tablet 30 mg PO TID PRN (Reason: Pain) RF: 0 OxyContin 60 mg tablet,oral only,ext.rel.12 hr 60 mg PO BID RF: 0 azelastine 137 mcg (0.1 %) aerosol,spray 1 - 2 spray INTRANASAL BID RF: 0 Narcan 4 mg/actuation spray,non-aerosol 4 mg intranasal Q2M PRN (Reason: opioid overdose) Qty: 2 RF: 0 Changed furosemide 20 mg tablet 40 mg PO EVERY OTHER DAY Qty: 120 RF: 3 Discharge Orders: Discharge Order (Routine); Ordered 06/13/21 Ordered By: Kerwin Whiting Other Ambulatory Orders: DME: Non-Invasive Vent (Order) Timeframe: 1 Day Location: None Selected Ordered By: Kerwin Whiting Referrals: May Knapp FNP-C [Primary Care Provider] - 1-3 days Discharge Diet: Diabetic Discharge Activity: Use walker/crutches as instructed Patient Instructions: Opioid Safety Discharge Attestations Time Spent in Discharge Care*: greater than 30 min (Family meeting, discussion with the patient, multiple phone calls with the oxygen Home company, discharge planning,) Quality Metrics Clinical Quality Measures During this hospital stay, did patient experience: None Coding Level of Care Code Acute [facility] DC note Diagnoses Opiate dependence F11.20 Acute and chronic respiratory failure with hypercapnia J96.22 Pneumonia J18.9 Compression fracture of thoracic vertebra S22.000A Nicotine addiction F17.200 Cardiomyopathy I42.9 Cardiomyopathy type: unspecified Chronic erythematous candidosis B37.9 Bulging lumbar disc M51.26 Chronic bilateral low back pain M54.42; M54.41; G89.29 Sciatica presence: with sciatica Sciatica laterality: bilateral sciatica Dysphagia, unspecified R13.10 Dysphagia type: unspecified
--- NOTE | 2021-06-13 18:17 | PC.NURSE ---
Discharge Note Patient discharged home via wheelchair accompanied by spouse. Discharge instructions reviewed with patient and/or sales representative leather goods. Mobile pharmacy medications and/or prescriptions provided. Belongings/home medications returned. Patient up in chair all day today. Patient stated that if the doctor does not put discharge orders in before it get dark he will go AMA. Patient waited to get Trilogy. Patient agitated calling and using profanity when the phone goes to voice mail.
== END 2021-06-13 17:41 | disposition home or self-care (01) | DRG 189 ==
LOC: ER 18:45 → ICU 20:49
PROVIDERS: Emergency Medicine; Admitting Provider Internal Medicine; Emergency Provider Family Medicine; PCP Nurse Practitioner Family; Visit Provider Internal Medicine
DX: J96.22 Acute and chronic respiratory failure with hypercapnia (principal); J18.9 Pneumonia, unspecified organism; J96.21 Acute and chronic respiratory failure with hypoxia; Z99.89 Dependence on other enabling machines and devices; J43.9 Emphysema, unspecified; M54.42 Lumbago with sciatica, left side; M54.41 Lumbago with sciatica, right side; G89.29 Other chronic pain; K21.9 Gastro-esophageal reflux disease without esophagitis; Z85.038 Personal history of other malignant neoplasm of large intestine; E78.2 Mixed hyperlipidemia; F17.210 Nicotine dependence, cigarettes, uncomplicated; G47.33 Obstructive sleep apnea (adult) (pediatric); I73.9 Peripheral vascular disease, unspecified; G62.9 Polyneuropathy, unspecified; Z90.49 Acquired absence of other specified parts of digestive tract; I10 Essential (primary) hypertension; Z79.51 Long term (current) use of inhaled steroids; Z79.82 Long term (current) use of aspirin; Z91.19 Patient's noncompliance with other medical treatment and regimen; I25.5 Ischemic cardiomyopathy; Z79.891 Long term (current) use of opiate analgesic; B37.9 Candidiasis, unspecified; D69.6 Thrombocytopenia, unspecified; Z92.3 Personal history of irradiation; Z92.21 Personal history of antineoplastic chemotherapy; Z85.21 Personal history of malignant neoplasm of larynx
CPT/HCPCS: 36415; 36600; 71045; 71250; 80048; 80051; 80053; 82330; 82803; 82805; 83735; 84145; 84484; 85025; 86140; 87040; 87070; 87077; 87186; 87205; 87635; 87641; 93005; 94640; 94660; 96365; 96366; 96367; 96372; 96375; 99291; J0692; J1650; J1885; J2060; J2270; J2310; J2930; J3370; J3490; J7050; J7512; J7626

== ENCOUNTER 2021-07-08 21:09 | Emergency (ER) | payer MEDICAID, SELFPAY ==
--- NOTE | 2021-07-08 21:14 | XRR_ITS ---
PROCEDURE INFORMATION: Exam: XR Chest Exam date and time: 07/08/2021 9:14 PM Age: 71 years old Clinical indication: Angina; Patient HX: SOB chest pain coughing since yesteday TECHNIQUE: Imaging protocol: XR of the chest. Views: 1 view. COMPARISON: CT chest con [id number] 06/13/2021 9:49 AM, also plain films from 06/01/2021 FINDINGS: Lungs: Although there are chronic opacities in the right lung base, this haziness has increased since May . There are also new peripheral hazy opacities in the left lung. Pleural spaces: No pleural effusion. Heart/Mediastinum: Unremarkable. No cardiomegaly. Bones/joints: Multiple chronic healed right rib fractures. XR/XR chest 1V portable [id number] IMPRESSION: New and increased bilateral peripheral hazy opacities. Pneumonitis favored over interstitial edema
--- NOTE | 2021-07-08 21:14 | ECG_ITS ---
[facility] Test Date: 2021-07-08 Pat Name: Jaime Olivares Department: Room: Gender: Male Medical Clinic Manager: : 1950 Requested By: Cj Rosen Order Number: [id number] Nora MD: Kaila Reyes M.D. Measurements Intervals [place] Rate: 103 P: 53 OR: 173 QRS: -53 QRSD: 94 T: 14 QT: 337 QTc: 442 Interpretive Statements SINUS TACHYCARDIA WITH FREQUENT SUPRAVENTRICULAR PREMATURE COMPLEXES INFERIOR MYOCARDIAL INFARCTION , PROBABLY OLD [40+ ms Q WAVE AND/OR ST/T ABNORMALITY IN II/aVF] Compared to ECG 06/11/2021 19:55:44 Sinus rhythm no longer present Myocardial infarct finding still present Electronically Signed On 07-09-2021 17:24:21 CHEMICAL ETCHING PROCESSOR by Kaila Reyes M.D. [email or web address]
[2021-07-08 21:23] VITALS: BP 130/60; PULSE 100; RESP 18; TEMP 36.7; O2SAT 100; BMI 28.5
--- NOTE | 2021-07-08 21:26 | ED_ITS ---
HPI - SOB/Dyspnea General: Chief Complaint: Shortness of Breath/Dyspnea Stated Complaint: RESP. 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 Patient here is on his baseline oxygen able to speak in full sentences he states he feels improved after he got IV Solu- Medrol along with a breathing treatment denies any cough denies any fever denies any worsening factors. Denies any chest pain. Associated symptoms: Deny abdominal pain, chest pain, fever(s), nausea or vomiting Review of Systems Const: Denies: fever(s), chills, body aches or change in appetite Eyes: Denies: blurry vision or eye discomfort ENMT: Denies: throat pain or dental pain Card: Denies: chest pain Resp: Reports: dyspnea GI: Denies: abdominal pain, nausea, vomiting or diarrhea : Denies: dysuria Musc: Denies: neck pain or back pain Skin/Breast: Denies: rash Neuro: Denies: headache(s) Psych: Denies: depression Johan/Lymph: Denies: easy bruising All/Imm: Denies: urticaria PFSH ED PFSH: Medical History (Updated 07/08/21 @ 23:56 by Cj Rosen MD) Acquired bilateral hammer toes Acute diverticulitis Bee sting allergy Bilateral bunions Bulging lumbar disc Cardiomyopathy Chronic bilateral low back pain Chronic erythematous candidosis Chronic low back pain Chronic nausea Chronic respiratory failure with hypoxia Compression fracture of thoracic vertebra COPD (chronic obstructive pulmonary disease) Degenerative disc disease Dysphagia, unspecified Emphysema, unspecified GERD (gastroesophageal reflux disease) History of colon cancer Hypersomnia Impaired mobility and activities of daily living Lesion of true vocal cord Lower extremity edema Mixed hyperlipidemia Nicotine addiction Nicotine dependence, cigarettes, uncomplicated Nocturia Onychomycosis MANISH (obstructive sleep apnea) Other specified joint disorders, right shoulder PAD (peripheral artery disease) Polyneuropathy, unspecified Sebaceous cyst of scrotum Segmental and somatic dysfunction of rib cage Blanco-Isaac syndrome Vasomotor rhinitis Venous reflux Surgical History H/O foot surgery H/O hernia repair History of back surgery History of cholecystectomy History of esophagogastroduodenoscopy (EGD) History of partial colectomy Family History Mother , Age 73 Hodgkin disease Cancer Father , Age 67 Stroke Social History Smoking and tobacco status: former smoker Quit status (tobacco): considering quitting Second hand smoke exposure: Yes Smoking risk assessment/counseling performed?: Yes Alcohol intake: never Desire information about alcohol rehabilitation?: No Counseling given: No Desire information about substance/drug rehabilitation?: No Counseling given: Yes Lives independently: Yes Household members: spouse Marital status: Highest education level completed: Some College, No Degree service: No Current occupational status: retired History of recent travel: No Current gender identity: Male Physical Exam Const: COMMON NORMALS: no acute distress, patient oriented x3 and healthy appearing HENMT: COMMON NORMALS: normocephalic and atraumatic HEAD & SCALP: normocephalic and atraumatic Eye: COMMON NORMALS: Equal, round and reactive pupils present and EOMs intact bilaterally PUPIL: Yes Equal, round and reactive pupils present Neck/C-Spine: COMMON NORMALS: full ROM and supple Chest: COMMONS NORMALS: normal inspection of the chest and normal palpation of entire chest wall Resp: COMMON NORMALS: normal respiratory effort, No retractions and No use of accessory muscles AUSCULTATION: wheezes Cardio: COMMON NORMALS: regular rate, regular rhythm and No murmurs present (Cardio) RATE: regular rate RHYTHM: regular rhythm GI: COMMON NORMALS: Normal to inspection, nondistended, normoactive bowel sounds present, Soft to palpation, non-tender and no masses PALPATION: Yes Soft to palpation Extremity: COMMON NORMALS: normal to inspection and full ROM Neuro: COMMON NORMALS: patient oriented x3, moves all extremities and no focal motor deficits Psych: COMMON NORMALS: mental status grossly normal, Normal thought process present and cooperative THOUGHT PROCESS: Normal thought process present Skin: COMMON NORMALS: no rashes or lesions noted and no wounds GENERAL SKIN EXAM: no rashes or lesions noted Course Vital Signs: Vital signs: Vital Signs Temperature 98.0 F 07/08/21 21:23 Pulse Rate 104 H 07/08/21 23:19 Respiratory Rate 20 H 07/08/21 23:19 Blood Pressure 130/60 07/08/21 21:23 Pulse Oximetry 96 07/08/21 23:19 MDM - SOB/Dyspnea MDM Narrative: Medical decision making narrative: Patient presents here with bronchitis COPD exacerbation he is at his baseline here 98% no distress x-ray shows possible pneumonia will start him on doxycycline increase his prednisone to 50 mg for 5 days he is stable for discharge return if worsening. Lab Data: Labs: Lab Results 07/08/21 07/08/21 07/08/21 21:33 21:33 21:33 WBC 12.5 10^3/uL H 10 ^3/uL (4.0-10.0) RBC 4.41 10^6/uL 10^6 /uL (4.1-5.3) Hgb 13.1 g/dL g/dL (11.7-16.6) Hct 41.7 % L % (42.0-52.0) MCV 94.6 fl H fl (80-94) MCH 29.7 pg pg (28.0-34.0) MCHC 31.4 g/dL g/dL (30.0-36.0) RDW 13.2 % % (12.1-15.1) Plt Count 191 10^3/cmm 10^3 /cmm (130-400) MPV 10.1 fL fL (7.4-10.4) Neut % (Auto) 81.3 % % Lymph % (Auto) 11.2 % % [place] % (Auto) 6.6 % % Eos % (Auto) 0.1 % % Baso % (Auto) 0.5 % % Neut # (Auto) 10.17 10^3/uL H 1 0^3/uL (1.8-7.7) Lymph # (Auto) 1.4 10^3/uL 10^3/ uL (0.8-4.8) [place] # (Auto) 0.8 10^3/uL 10^3/ uL (0.2-0.9) Eos # (Auto) 0.0 10^3/uL 10^3/ uL (0.0-0.8) Baso # (Auto) 0.1 10^3/uL 10^3/ uL (0.0-0.1) Nucleated RBC % (a uto) 0 % % Nucleated RBCs # 0.0 /100WBC /100W BC PT 15.80 SECONDS H S ECONDS (12.1-14.9) INR 1.22 H (0.8-1.2) Specimen Type Sample Site ABG pH ABG pO2 ABG HCO3 ABG Base Excess Placido Test Hematocrit O2 Delivery Device O2 Liters/Min Java J2Ee Technical Lead ID Sodium 138 mmol/L mmol/L (136-145) Potassium 3.8 mmol/L mmol/L (3.5-5.1) Chloride 95 mmol/L L mmol/ L (98-107) Carbon Dioxide 33 mmol/L H mmol/ L (22-29) Anion Gap 13.8 (5-19) BUN 12 mg/dL mg/dL (8-23) Creatinine 0.6 mg/dL L mg/dL (0.7-1.2) GFR Calculation 133.6 mL/min H mL /min (90-130) Glucose 97 mg/dL mg/dL (65-115) Calculated Osmolal ity 286 mOsm/kg mOsm/ kg (285-295) Calcium 8.0 mg/dL L mg/dL (8.5-10.5) Total Bilirubin 1.1 mg/dL mg/dL (0.15-1.2) AST 10 U/L U/L (0-40) ALT 7 U/L U/L (0-41) Alkaline Phosphata se 103 IU/L IU/L (40-130) Troponin T Baselin e Troponin T 120 Min stebbins Delta Troponin T NT-Pro-B Natriuret Pep 2631 pg/mL H pg/m L (0-125) Total Protein 5.8 g/dL L g/dL (6.6-8.7) Albumin 3.9 g/dL g/dL (3.5-5.2) Globulin 1.9 g/dL g/dL (1.3-4.6) 07/08/21 07/08/21 07/08/21 21:33 23:10 23:18 WBC RBC Hgb Hct MCV MCH MCHC RDW Plt Count MPV Neut % (Auto) Lymph % (Auto) [place] % (Auto) Eos % (Auto) Baso % (Auto) Neut # (Auto) Lymph # (Auto) [place] # (Auto) Eos # (Auto) Baso # (Auto) Nucleated RBC % (a uto) Nucleated RBCs # PT INR Specimen Type Arterial Sample Site Radial, left ABG pH 7.34 L (7.35-7.45) ABG pO2 138.0 mmHg H mmHg (80.0-100.0) ABG HCO3 37.2 mmol/L H mmo l/L (22-26) ABG Base Excess 8.8 mmol/L H mmol /L (-2.0-2.0) Placido Test N/a Hematocrit 41.3 % L % (42-52) O2 Delivery Device Nc O2 Liters/Min 6.0 % % Java [id number] Technical Lead ID Nicer2 Sodium Potassium Chloride Carbon Dioxide Anion Gap BUN Creatinine GFR Calculation Glucose Calculated Osmolal ity Calcium Total Bilirubin AST ALT Alkaline Phosphata se Troponin T Baselin e 41 ng/L H ng/L (0-15) Troponin T 120 Min stebbins 39.89 ng/L H ng/L (0-15) Delta Troponin T -1.11 ABS# L ABS# (0-10) NT-Pro-B Natriuret Pep Total Protein Albumin Globulin Imaging Data^: CXR: Attestation: I personally reviewed and interpreted this imaging study as follows: Radiologist's impression: New and increased bilateral peripheral hazy opacities. Pneumonitis favored over interstitial edema EKG Data^: EKG 1: Attestation: I personally reviewed and interpreted this EKG as follows: EKG Interpretation Date: 07/08/21 EKG interpretation time: 21:42 Interpretation: sinus tach hr [address] or t wave abnormalities qrs 94 [id number] EKG 2: Attestation: I personally reviewed and interpreted this EKG as follows: EKG Interpretation Date: 07/08/21 EKG interpretation time: 22:53 Interpretation: nsr hr [address] or t wave abnormalities qrs 101 qtc 408 Discharge Plan Discharge Patient Disposition: Home Clinical Impression: Bronchitis Condition: Stable Prescriptions: New prednisone 50 mg tablet 50 mg PO DAILY Qty: 5 RF: 0 doxycycline hyclate 100 mg tablet 100 mg PO BID 7 Days Qty: 14 RF: 0 No Action aspirin [Adult Aspirin Regimen] 81 mg tablet,delayed release (DR/EC) 81 mg PO DAILY Qty: 90 RF: 1 atorvastatin 40 mg tablet 40 mg PO DAILY Qty: 90 RF: 3 spironolactone 25 mg tablet 25 mg PO DAILY Qty: 30 RF: 3 albuterol sulfate 2.5 mg /3 mL (0.083 %) solution for nebulization 2.5 mg INHALATION QID PRN (Reason: Shortness Of Breath) RF: 0 butenafine [Lotrimin Ultra] 1 % cream 1 applic TOPICAL BID PRN (Reason: Allergic Reaction) RF: 0 epinephrine 0.3 mg/0.3 mL auto-injector 0.3 mg IM ONCE PRN (Reason: Allergic Reaction) RF: 0 Restasis MultiDose 0.05 % drops 1 drop ophthalmic (eye) Q12H RF: 0 mupirocin 2 % ointment 1 applic TOPICAL BID Qty: 22 RF: 2 levocetirizine [Xyzal] 5 mg tablet 5 mg PO DAILY RF: 0 budesonide-formoterol [Symbicort] 160-4.5 mcg/actuation HFA aerosol inhaler 2 puff inhalation BID RF: 0 Spiriva with HandiHaler 18 mcg capsule, w/inhalation device 1 cap inhalation DAILY 30 Days Qty: 60 RF: 3 (DME) walker with seat /wheels See Rx Instructions .Route .MEDSUPPLY Qty: 1 RF: 0 albuterol sulfate [ProAir HFA] 90 mcg/actuation HFA aerosol inhaler See Rx Instructions .ROUTE .COMPLEX Qty: 8.5 RF: 3 ipratropium-albuterol 0.5 mg-3 mg(2.5 mg base)/3 mL solution for nebulization See Rx Instructions .ROUTE .COMPLEX Qty: 360 RF: 3 losartan 25 mg tablet 25 mg PO DAILY Qty: 90 RF: 3 montelukast 10 mg tablet See Rx Instructions .ROUTE .COMPLEX Qty: 30 RF: 0 magnesium L-lactate [Magtab] 84 mg tablet extended release See Rx Instructions .ROUTE .COMPLEX Qty: 30 RF: 5 MediHoney (honey) 80 % gel 1 applic topical BID 30 Days Qty: 44 RF: 2 metoprolol tartrate 25 mg tablet 25 mg PO BID Qty: 60 RF: 5 potassium chloride 20 mEq tablet extended release See Rx Instructions .ROUTE .COMPLEX Qty: 120 RF: 3 azithromycin 500 mg tablet 500 mg PO EVERY OTHER DAY Qty: 45 RF: 3 prednisone 5 mg tablet 5 mg PO DAILY Qty: 30 RF: 3 budesonide [Pulmicort] 0.5 mg/2 mL suspension for nebulization 0.5 mg INHALATION BID 90 Days Qty: 360 RF: 3 pantoprazole 40 mg tablet,delayed release (DR/EC) See Rx Instructions .ROUTE .COMPLEX Qty: 30 RF: 2 Lidocaine Viscous 2 % solution See Rx Instructions .ROUTE .COMPLEX Qty: 600 RF: 5 morphine 30 mg tablet 30 mg PO TID PRN (Reason: Pain) RF: 0 OxyContin 60 mg tablet,oral only,ext.rel.12 hr 60 mg PO BID RF: 0 furosemide 20 mg tablet 40 mg PO EVERY OTHER DAY Qty: 120 RF: 3 azelastine 137 mcg (0.1 %) aerosol,spray 1 - 2 spray INTRANASAL BID RF: 0 Narcan 4 mg/actuation spray,non-aerosol 4 mg intranasal Q2M PRN (Reason: opioid overdose) Qty: 2 RF: 0 Discharge Orders: Discharge ED (Routine); Ordered 07/08/21 Ordered By: Cj Rosen Referrals: May Knapp FNP-C [Primary Care Provider] - Patient Instructions: Opioid Safety Coding Level of Care Code ED Molecular Biology Professor for Chg Fwd Exam Comprehensive
[2021-07-08 21:41] LABS: Basophils # 0.1 10^3/uL (0.0-0.1); Basophils % 0.5 %; Eosinophils % 0.1 %; Hematocrit 41.7 % (42.0-52.0); Hemoglobin 13.1 g/dL (11.7-16.6); Lymphocytes # 1.4 10^3/uL (0.8-4.8); Lymphocytes % 11.2 %; Mean Corpuscular HGB Conc 31.4 g/dL (30.0-36.0); Mean Corpuscular Hemoglobin 29.7 pg (28.0-34.0); Mean Corpuscular Volume 94.6 fl (80-94); Mean Platelet Volume 10.1 fL (7.4-10.4); Monocytes # 0.8 10^3/uL (0.2-0.9); Monocytes % 6.6 %; Neutrophils # 10.17 10^3/uL (1.8-7.7); Neutrophils % 81.3 %; Nucleated Red Blood Cells % 0 %; Platelet Count 191 10^3/cmm (130-400); Red Blood Count 4.41 10^6/uL (4.1-5.3); Red Cell Distribution Width 13.2 % (12.1-15.1); White Blood Count 12.5 10^3/uL (4.0-10.0)
[2021-07-08 21:56] LABS: INR 1.22 (0.8-1.2)
[2021-07-08 22:05] LABS: Troponin(5th) Baseline 41 ng/L (0-15)
[2021-07-08 22:10] LABS: Alanine Aminotransferase 7 U/L (0-41); Albumin Level 3.9 g/dL (3.5-5.2); Alkaline Phosphatase 103 IU/L (40-130); Anion Gap 13.8 (5-19); Aspartate Amino Transferase 10 U/L (0-40); Blood Urea Nitrogen 12 mg/dL (8-23); Carbon Dioxide 33 mmol/L (22-29); Chloride 95 mmol/L (98-107); Globulin 1.9 g/dL (1.3-4.6); Glomerular Filtration Rate 133.6 mL/min (90-130); Glucose 97 mg/dL (65-115); NT Pro B Type Natriuretic Pept 2631 pg/mL (0-125); Osmolality Calculated 286 mOsm/kg (285-295); Potassium 3.8 mmol/L (3.5-5.1); Sodium 138 mmol/L (136-145); Total Bilirubin 1.1 mg/dL (0.15-1.2); Total Protein 5.8 g/dL (6.6-8.7)
[2021-07-08] MEDS: FUROsemide 10 mg/mL SDV 4mL 40 MG IVP (22:25)
--- NOTE | 2021-07-08 23:14 | ECG_ITS ---
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 Measurements Intervals [place] Rate: 97 P: 29 VA: 154 QRS: 268 QRSD: 101 T: -11 QT: 354 QTc: 450 Interpretive Statements SINUS RHYTHM WITH FREQUENT SUPRAVENTRICULAR PREMATURE COMPLEXES POSSIBLE RIGHT VENTRICULAR HYPERTROPHY POSSIBLE ANTERIOR MYOCARDIAL INFARCTION , PROBABLY OLD POSSIBLE INFERIOR MYOCARDIAL INFARCTION , OF INDETERMINATE AGE [30 ms Q WAVE IN II/aVF] Compared to ECG 06/11/2021 19:55:44 No significant changes Electronically Signed On 07-09-2021 22:12:51 EXPEDITIONARY FORCE COMBAT SKILLS by Kaila Reyes M.D. [id number]
[2021-07-08 23:19] VITALS: PULSE 104; RESP 20; O2SAT 96
[2021-07-08 23:30] LABS: ABG PH Result 7.34 (7.35-7.45); Arterial Blood Gas Hematocrit 41.3 % (42-52); Base Excess ABG 8.8 mmol/L (-2.0-2.0); Blood Gas Sample Site Radial, left; Blood Gas Sample Type Arterial; HCO3 ABG 37.2 mmol/L (22-26); Oxygen Device NC
[2021-07-08 23:50] LABS: Troponin 5 2HR 39.89 ng/L (0-15)
[2021-07-08 23:52] LABS: Troponin 5 2HR Delta -1.11 ABS# (0-10)
[2021-07-09 02:22] VITALS: BP 129/73; PULSE 88; RESP 17; O2SAT 99
== END 2021-07-09 02:10 | disposition home or self-care (01) ==
PROVIDERS: Emergency Provider Emergency Medicine; PCP Nurse Practitioner Family
DX: J40 Bronchitis, not specified as acute or chronic (principal); Z79.82 Long term (current) use of aspirin; J44.9 Chronic obstructive pulmonary disease, unspecified; Z85.038 Personal history of other malignant neoplasm of large intestine; E78.2 Mixed hyperlipidemia; Z87.891 Personal history of nicotine dependence
CPT/HCPCS: 71045; 80053; 82803; 83880; 84484; 85025; 85610; 93005; 94640; 96374; 99283; J1940; J7611

== ENCOUNTER 2021-07-22 18:44 | Emergency (ER) | payer MEDICAID, SELFPAY ==
[2021-07-22 18:45] VITALS: BP 108/66; PULSE 72; RESP 22; TEMP 36.4; O2SAT 99; BMI 28.5
--- NOTE | 2021-07-22 18:46 | ECG_ITS ---
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 Measurements Intervals [place] Rate: 70 P: 56 MT: 176 QRS: -51 QRSD: 91 T: 17 QT: 386 QTc: 416 Interpretive Statements SINUS RHYTHM PATTERN CONSISTENT WITH PULMONARY DISEASE INFERIOR MYOCARDIAL INFARCTION , PROBABLY OLD [40+ ms Q WAVE AND/OR ST/T ABNORMALITY IN II/aVF] Compared to ECG 07/08/2021 22:53:29 No significant changes Electronically Signed On 07-23-2021 5:06:58 PRODUCT APPLICATIONS SCIENTIST by Kaila Reyes M.D. [id number]
--- NOTE | 2021-07-22 18:46 | XRR_ITS ---
PROCEDURE INFORMATION: Exam: XR Chest Exam date and time: 07/22/2021 6:46 PM Age: 71 years old Clinical indication: Chest wall pain; Additional info: Cp TECHNIQUE: Imaging protocol: XR of the chest. Views: 1 view. COMPARISON: CR (CHEST, ) 07/08/2021 9:32 PM FINDINGS: Lungs: Diffuse coarsening of the lung parenchyma with bibasilar scarring. No consolidation. Pleural spaces: No pleural effusion. No pneumothorax. Heart/Mediastinum: No cardiomegaly. Bones/joints: Old posterolateral right upper and mid rib fractures noted. Rotator cuff suture anchor noted in the right humeral head. Visualized osseous structures are intact. XR/XR chest 1V portable [id number] IMPRESSION: No acute findings.
--- NOTE | 2021-07-22 18:56 | W.ED.SOB ---
HPI - SOB/Dyspnea General: Chief Complaint: Shortness of Breath/Dyspnea Stated Complaint: SOB, CHEST WALL PAIN Time Seen by Provider: 07/22/21 18:45 Source: patient and EMS Mode of arrival: EMS Limitations: no limitations History of Present Illness: HPI Narrative: 71-year-old male who has a long history of COPD he states he wears 4 to 5 L of oxygen at home at baseline. He has been seen here twice for last month he states he just keeps having cough and shortness of breath over the last 6 weeks. States he is not having any improvement. Patient here is actually 98% on 3 L does have some mild wheezing he denies any fever but has had continued cough denies any vomiting or diarrhea. He states he is having some sharp chest pain in his chest especially with coughing. Associated symptoms: Deny abdominal pain, chest pain, fever(s), nausea or vomiting Review of Systems Const: Denies: fever(s), chills, body aches or change in appetite Eyes: Denies: blurry vision or eye discomfort ENMT: Denies: throat pain or dental pain Card: Denies: chest pain Resp: Reports: dyspnea and non-productive cough GI: Denies: abdominal pain, nausea, vomiting or diarrhea : Denies: dysuria Musc: Denies: neck pain or back pain Skin/Breast: Denies: rash Neuro: Denies: headache(s) Psych: Denies: depression Johan/Lymph: Denies: easy bruising All/Imm: Denies: urticaria PFSH ED PFSH: Medical History (Updated 07/22/21 @ 22:15 by Cj Rosen MD) Acquired bilateral hammer toes Acute diverticulitis Bee sting allergy Bilateral bunions Bulging lumbar disc Cardiomyopathy Chronic bilateral low back pain Chronic erythematous candidosis Chronic low back pain Chronic nausea Chronic respiratory failure with hypoxia Compression fracture of thoracic vertebra COPD (chronic obstructive pulmonary disease) Degenerative disc disease Dysphagia, unspecified Emphysema, unspecified GERD (gastroesophageal reflux disease) History of colon cancer Hypersomnia Impaired mobility and activities of daily living Lesion of true vocal cord Lower extremity edema Mixed hyperlipidemia Nicotine addiction Nicotine dependence, cigarettes, uncomplicated Nocturia Onychomycosis MANISH (obstructive sleep apnea) Other specified joint disorders, right shoulder PAD (peripheral artery disease) Polyneuropathy, unspecified Sebaceous cyst of scrotum Segmental and somatic dysfunction of rib cage Blanco-Isaac syndrome Vasomotor rhinitis Venous reflux Surgical History H/O foot surgery H/O hernia repair History of back surgery History of cholecystectomy History of esophagogastroduodenoscopy (EGD) History of partial colectomy Family History Mother , Age 73 Hodgkin disease Cancer Father , Age 67 Stroke Social History Smoking and tobacco status: former smoker Quit status (tobacco): considering quitting Second hand smoke exposure: Yes Smoking risk assessment/counseling performed?: Yes Alcohol intake: never Desire information about alcohol rehabilitation?: No Counseling given: No Desire information about substance/drug rehabilitation?: No Counseling given: Yes Lives independently: Yes Household members: spouse Marital status: Highest education level completed: Some College, No Degree service: No Current occupational status: retired History of recent travel: No Current gender identity: Male Physical Exam Const: COMMON NORMALS: no acute distress, patient oriented x3 and healthy appearing HENMT: COMMON NORMALS: normocephalic and atraumatic HEAD & SCALP: normocephalic and atraumatic Eye: COMMON NORMALS: Equal, round and reactive pupils present and EOMs intact bilaterally PUPIL: Yes Equal, round and reactive pupils present Neck/C-Spine: COMMON NORMALS: full ROM and supple Chest: COMMONS NORMALS: normal inspection of the chest and normal palpation of entire chest wall Resp: COMMON NORMALS: normal respiratory effort, No retractions, No use of accessory muscles and clear to auscultation bilaterally AUSCULTATION: clear to auscultation bilaterally Cardio: COMMON NORMALS: regular rate, regular rhythm and No murmurs present (Cardio) RATE: regular rate RHYTHM: regular rhythm GI: COMMON NORMALS: Normal to inspection, nondistended, normoactive bowel sounds present, Soft to palpation, non-tender and no masses PALPATION: Yes Soft to palpation Extremity: COMMON NORMALS: normal to inspection and full ROM Neuro: COMMON NORMALS: patient oriented x3, moves all extremities and no focal motor deficits Psych: COMMON NORMALS: mental status grossly normal, Normal thought process present and cooperative THOUGHT PROCESS: Normal thought process present Skin: COMMON NORMALS: no rashes or lesions noted and no wounds GENERAL SKIN EXAM: no rashes or lesions noted Course Vital Signs: Vital signs: Vital Signs Temperature 97.9 F 07/22/21 21:05 Pulse Rate 75 07/22/21 21:05 Respiratory Rate 22 H 07/22/21 21:05 Blood Pressure 95/59 07/22/21 21:05 Pulse Oximetry 95 07/22/21 21:05 MDM - SOB/Dyspnea Medical Decision Making Patient presents with cough along with chest pain his chest pains atypical in nature likely from his cough patient's troponins EKGs are normal here x-ray shows no pneumonia he also complained of some abdominal pain will get a CT his abdomen be states he feels improved and would not like to stay here any longer will prescribe him pain meds he is to follow-up with PCP and return if worsening he understands agrees to plan. Lab Data : 07/22/21 19:10 07/22/21 19:10 Labs/Radiology: Radiology Impressions Chest X-Ray 07/22/21 18:46 IMPRESSION: No acute findings. Laboratory Results WBC 12.9 10^3/uL (4.0-10.0) H 07/22/21 19:10 RBC 3.90 10^6/uL (4.1-5.3) L 07/22/21 19:10 Hgb 11.6 g/dL (11.7-16.6) L 07/22/21 19:10 Hct 38.9 % (42.0-52.0) L 07/22/21 19:10 MCV 99.7 fl (80-94) H 07/22/21 19:10 MCH 29.7 pg (28.0-34.0) 07/22/21 19:10 MCHC 29.8 g/dL (30.0-36.0) L 07/22/21 19:10 RDW 13.8 % (12.1-15.1) 07/22/21 19:10 Plt Count 161 10^3/cmm (130-400) 07/22/21 19:10 MPV 10.3 fL (7.4-10.4) 07/22/21 19:10 Neut % (Auto) 91.6 % 07/22/21 19:10 Lymph % (Auto) 5.6 % 07/22/21 19:10 [place] % (Auto) 1.5 % 07/22/21 19:10 Eos % (Auto) 0.2 % 07/22/21 19:10 Baso % (Auto) 0.5 % 07/22/21 19:10 Neut # (Auto) 11.83 10^3/uL (1.8-7.7) H 07/22/21 19:10 Lymph # (Auto) 0.7 10^3/uL (0.8-4.8) L 07/22/21 19:10 [place] # (Auto) 0.2 10^3/uL (0.2-0.9) 07/22/21 19:10 Eos # (Auto) 0.0 10^3/uL (0.0-0.8) 07/22/21 19:10 Baso # (Auto) 0.1 10^3/uL (0.0-0.1) 07/22/21 19:10 Nucleated RBC % (auto) 0 % 07/22/21 19:10 Nucleated RBCs # 0.0 /100WBC 07/22/21 19:10 Sodium 140 mmol/L (136-145) 07/22/21 19:10 Potassium 4.4 mmol/L (3.5-5.1) 07/22/21 19:10 Chloride 101 mmol/L (98-107) 07/22/21 19:10 Carbon Dioxide 29 mmol/L (22-29) 07/22/21 19:10 Anion Gap 14.4 (5-19) 07/22/21 19:10 BUN 15 mg/dL (8-23) 07/22/21 19:10 Creatinine 0.6 mg/dL (0.7-1.2) L 07/22/21 19:10 GFR Calculation 133.6 mL/min (90-130) H 07/22/21 19:10 Glucose 104 mg/dL (65-115) 07/22/21 19:10 Calculated Osmolality 291 mOsm/kg (285-295) 07/22/21 19:10 Calcium 8.7 mg/dL (8.5-10.5) 07/22/21 19:10 Total Bilirubin 0.4 mg/dL (0.15-1.2) 07/22/21 19:10 AST 11 U/L (0-40) 07/22/21 19:10 ALT 8 U/L (0-41) 07/22/21 19:10 Alkaline Phosphatase 97 IU/L (40-130) 07/22/21 19:10 Troponin T Baseline 46 ng/L (0-15) H 07/22/21 19:10 Troponin T 120 Minute 43.11 ng/L (0-15) H 07/22/21 20:44 Delta Troponin T -2.89 ABS# (0-10) L 07/22/21 20:44 NT-Pro-B Natriuret Pep 1506 pg/mL (0-125) H 07/22/21 19:10 Total Protein 5.5 g/dL (6.6-8.7) L 07/22/21 19:10 Albumin 3.7 g/dL (3.5-5.2) 07/22/21 19:10 Globulin 1.8 g/dL (1.3-4.6) 07/22/21 19:10 Lipase 19 U/L (13-60) 07/22/21 19:10 EKG Data EKG 1: I personally reviewed and interpreted this EKG as follows: EKG Interpretation Date: 07/22/21 EKG interpretation time: 19:00 Interpretation: nsr hr [address] or t wave abnormalities qrs 91 qtc 406 Discharge Plan Discharge Patient Disposition: Home Clinical Impression: Atypical chest pain, Breath shortness Condition: Stable Prescriptions: New hydrocodone-acetaminophen 5-325 mg tablet 1 tab PO Q6H PRN (Reason: pain) Qty: 14 0RF No Action aspirin [Adult Aspirin Regimen] 81 mg tablet,delayed release (DR/EC) 81 mg PO DAILY Qty: 90 1RF atorvastatin 40 mg tablet 40 mg PO DAILY Qty: 90 3RF spironolactone 25 mg tablet 25 mg PO DAILY Qty: 30 3RF albuterol sulfate 2.5 mg /3 mL (0.083 %) solution for nebulization 2.5 mg INHALATION QID PRN (Reason: Shortness Of Breath) 0RF butenafine [Lotrimin Ultra] 1 % cream 1 applic TOPICAL BID PRN (Reason: Allergic Reaction) 0RF epinephrine 0.3 mg/0.3 mL auto-injector 0.3 mg IM ONCE PRN (Reason: Allergic Reaction) 0RF Restasis MultiDose 0.05 % drops 1 drop ophthalmic (eye) Q12H 0RF mupirocin 2 % ointment 1 applic TOPICAL BID Qty: 22 2RF levocetirizine [Xyzal] 5 mg tablet 5 mg PO DAILY 0RF budesonide-formoterol [Symbicort] 160-4.5 mcg/actuation HFA aerosol inhaler 2 puff inhalation BID 0RF Spiriva with HandiHaler 18 mcg capsule, w/inhalation device 1 cap inhalation DAILY 30 Days Qty: 60 3RF Rx Instructions: puncture 1 cap using device; one dose = 2 inhalations (DME) walker with seat /wheels See Rx Instructions .Route .MEDSUPPLY Qty: 1 0RF Rx Instructions: [id number] 99 months albuterol sulfate [ProAir HFA] 90 mcg/actuation HFA aerosol inhaler See Rx Instructions .ROUTE .COMPLEX Qty: 8.5 3RF Dose Instruction: INHALE 2 PUFFS INTO LUNGS EVERY 6 HOURS NEEDED FOR SHORTNESS OF BREATH Rx Instructions: INHALE 2 PUFFS INTO LUNGS EVERY 6 HOURS NEEDED FOR SHORTNESS OF BREATH ipratropium-albuterol 0.5 mg-3 mg(2.5 mg base)/3 mL solution for nebulization See Rx Instructions .ROUTE .COMPLEX Qty: 360 3RF Dose Instruction: NEBULIZE 1 VIAL FOUR TIMES DAILY NEEDED FOR WHEEZING Rx Instructions: NEBULIZE 1 VIAL FOUR TIMES DAILY NEEDED FOR WHEEZING losartan 25 mg tablet 25 mg PO DAILY Qty: 90 3RF montelukast 10 mg tablet See Rx Instructions .ROUTE .COMPLEX Qty: 30 0RF Dose Instruction: TAKE ONE TABLET BY MOUTH DAILY Rx Instructions: TAKE ONE TABLET BY MOUTH DAILY magnesium L-lactate [Magtab] 84 mg tablet extended release See Rx Instructions .ROUTE .COMPLEX Qty: 30 5RF Dose Instruction: TAKE ONE TABLET BY MOUTH DAILY Rx Instructions: TAKE ONE TABLET BY MOUTH DAILY MediHoney (honey) 80 % gel 1 applic topical BID 30 Days Qty: 44 2RF metoprolol tartrate 25 mg tablet 25 mg PO BID Qty: 60 5RF potassium chloride 20 mEq tablet extended release See Rx Instructions .ROUTE .COMPLEX Qty: 120 3RF Dose Instruction: TAKE TWO TABLETS BY MOUTH IN THE MORNING AND TAKE TWO TABLETS IN THE EVENING Rx Instructions: TAKE TWO TABLETS BY MOUTH IN THE MORNING AND TAKE TWO TABLETS IN THE EVENING azithromycin 500 mg tablet 500 mg PO EVERY OTHER DAY Qty: 45 3RF prednisone 5 mg tablet 5 mg PO DAILY Qty: 30 3RF budesonide [Pulmicort] 0.5 mg/2 mL suspension for nebulization 0.5 mg INHALATION BID 90 Days Qty: 360 3RF pantoprazole 40 mg tablet,delayed release (DR/EC) See Rx Instructions .ROUTE .COMPLEX Qty: 30 2RF Dose Instruction: TAKE ONE TABLET BY MOUTH DAILY Rx Instructions: TAKE ONE TABLET BY MOUTH DAILY Lidocaine Viscous 2 % solution See Rx Instructions .ROUTE .COMPLEX Qty: 600 5RF Dose Instruction: TAKE ONE TEASPOONFUL ( 5 ML'S ) BY MOUTH EVERY THREE HOURS NEEDED FOR MOUTH PAIN Rx Instructions: TAKE ONE TEASPOONFUL ( 5 ML'S ) BY MOUTH EVERY THREE HOURS NEEDED FOR MOUTH PAIN amoxicillin-pot clavulanate [Augmentin] 875-125 mg tablet 1 tab PO BID Qty: 20 0RF morphine 30 mg tablet 30 mg PO TID PRN (Reason: Pain) 0RF OxyContin 60 mg tablet,oral only,ext.rel.12 hr 60 mg PO BID 0RF furosemide 20 mg tablet 40 mg PO EVERY OTHER DAY Qty: 120 3RF Rx Instructions: 2 TABS TWICE DAILY azelastine 137 mcg (0.1 %) aerosol,spray 1 - 2 spray INTRANASAL BID 0RF Narcan 4 mg/actuation spray,non-aerosol 4 mg intranasal Q2M PRN (Reason: opioid overdose) Qty: 2 0RF Rx Instructions: spray 1 dose into ONE nostril; alternate nostrils w each dose until help arrives prednisone 50 mg tablet 50 mg PO DAILY Qty: 5 0RF Discharge Orders: Discharge ED (Routine); Ordered 07/22/21 Ordered By: Cj Rosen Referrals: May Knapp FNP-C [Primary Care Provider] - Discharge Diet: Advance as tolerated Discharge Activity: Resume usual activity Patient Instructions: Chest Pain (ED) Coding Level of Care Code ED Custom Bike Builder for [place] Fwd Exam Comprehensive
[2021-07-22 19:23] LABS: Basophils # 0.1 10^3/uL (0.0-0.1); Basophils % 0.5 %; Eosinophils % 0.2 %; Hematocrit 38.9 % (42.0-52.0); Hemoglobin 11.6 g/dL (11.7-16.6); Lymphocytes # 0.7 10^3/uL (0.8-4.8); Lymphocytes % 5.6 %; Mean Corpuscular HGB Conc 29.8 g/dL (30.0-36.0); Mean Corpuscular Hemoglobin 29.7 pg (28.0-34.0); Mean Corpuscular Volume 99.7 fl (80-94); Mean Platelet Volume 10.3 fL (7.4-10.4); Monocytes # 0.2 10^3/uL (0.2-0.9); Monocytes % 1.5 %; Neutrophils # 11.83 10^3/uL (1.8-7.7); Neutrophils % 91.6 %; Nucleated Red Blood Cells % 0 %; Platelet Count 161 10^3/cmm (130-400); Red Cell Distribution Width 13.8 % (12.1-15.1); White Blood Count 12.9 10^3/uL (4.0-10.0)
[2021-07-22 20:05] LABS: Troponin(5th) Baseline 46 ng/L (0-15)
[2021-07-22 20:14] LABS: Alanine Aminotransferase 8 U/L (0-41); Albumin Level 3.7 g/dL (3.5-5.2); Alkaline Phosphatase 97 IU/L (40-130); Anion Gap 14.4 (5-19); Aspartate Amino Transferase 11 U/L (0-40); Blood Urea Nitrogen 15 mg/dL (8-23); Calcium 8.7 mg/dL (8.5-10.5); Carbon Dioxide 29 mmol/L (22-29); Chloride 101 mmol/L (98-107); Globulin 1.8 g/dL (1.3-4.6); Glomerular Filtration Rate 133.6 mL/min (90-130); Glucose 104 mg/dL (65-115); Lipase 19 U/L (13-60); NT Pro B Type Natriuretic Pept 1506 pg/mL (0-125); Osmolality Calculated 291 mOsm/kg (285-295); Potassium 4.4 mmol/L (3.5-5.1); Sodium 140 mmol/L (136-145); Total Bilirubin 0.4 mg/dL (0.15-1.2); Total Protein 5.5 g/dL (6.6-8.7)
--- NOTE | 2021-07-22 20:46 | ECG_ITS ---
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 Measurements Intervals [place] Rate: 71 P: 60 IL: 176 QRS: -62 QRSD: 89 T: 39 QT: 384 QTc: 420 Interpretive Statements SINUS RHYTHM PATTERN CONSISTENT WITH PULMONARY DISEASE LEFT ANTERIOR FASCICULAR BLOCK [QRS AXIS <= -45, QR IN I, RS IN II] Compared to ECG 07/22/2021 19:00:17 Left anterior fascicular block now present Myocardial infarct finding no longer present Electronically Signed On 07-23-2021 20:57:44 TURNSTILE COLLECTOR by Mukul Don M.D. [id number]
[2021-07-22 21:05] VITALS: BP 95/59; PULSE 75; RESP 22; TEMP 36.6; O2SAT 95
[2021-07-22 21:22] LABS: Troponin 5 2HR 43.11 ng/L (0-15)
[2021-07-22 21:33] LABS: Troponin 5 2HR Delta -2.89 ABS# (0-10)
[2021-07-22 22:59] VITALS: RESP 17; O2SAT 94
[2021-07-22] MEDS: morphine 4 mg/mL SDV 1 mL IVP (22:59)
[2021-07-23 00:56] VITALS: BP 142/78; PULSE 98; RESP 18; O2SAT 96
== END 2021-07-23 00:58 | disposition home or self-care (01) ==
PROVIDERS: Emergency Provider Emergency Medicine; PCP Nurse Practitioner Family
DX: R07.89 Other chest pain (principal); R06.02 Shortness of breath; Z79.82 Long term (current) use of aspirin; J44.9 Chronic obstructive pulmonary disease, unspecified; Z85.038 Personal history of other malignant neoplasm of large intestine; E78.2 Mixed hyperlipidemia; Z87.891 Personal history of nicotine dependence
CPT/HCPCS: 36415; 71045; 80053; 83690; 83880; 84484; 85025; 93005; 96374; 99283; J2270

== ENCOUNTER → 2021-08-06 10:50 | Outpatient (BNVA) | payer MEDICAID, SELFPAY | PROVIDERS: PCP Nurse Practitioner Family; Visit Provider Nurse Practitioner Family | DX: R30.0 Dysuria (principal) | CPT/HCPCS: 81000 ==

== ENCOUNTER 2021-08-10 20:38 | Inpatient (IN) | payer MEDICAID, SELFPAY ==
[2021-08-10 20:37] VITALS: BP 127/86; PULSE 74; RESP 24; TEMP 36.4; O2SAT 96; BMI 29.7
--- NOTE | 2021-08-10 20:45 | ECG_ITS ---
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 Measurements Intervals [place] Rate: 72 P: 69 [place]: 170 QRS: -47 QRSD: 88 T: 30 QT: 379 QTc: 416 Interpretive Statements SINUS RHYTHM PATTERN CONSISTENT WITH PULMONARY DISEASE INFERIOR MYOCARDIAL INFARCTION , OF INDETERMINATE AGE [40+ ms Q WAVE AND/OR ST/T ABNORMALITY IN II/aVF] Compared to ECG 07/22/2021 20:27:16 Myocardial infarct finding now present Left anterior fascicular block no longer present Electronically Signed On 08-11-2021 21:36:56 MIXING TANK OPERATOR by Lilly Rowell M.D. [id number]
--- NOTE | 2021-08-10 20:45 | XRR_ITS ---
PROCEDURE INFORMATION: Exam: XR Chest Exam date and time: 08/10/2021 8:45 PM Age: 71 years old Clinical indication: Dyspnea; Additional info: SOB TECHNIQUE: Imaging protocol: XR of the chest. Views: 1 view. COMPARISON: CR (CHEST, ) 07/22/2021 7:02 PM FINDINGS: Lungs: Emphysematous lung changes. Coarsened reticular interstitial change bilaterally. No focal consolidation. Reduced lung volumes. Pleural spaces: Unremarkable. No pleural effusion. No pneumothorax. Heart/Mediastinum: Unremarkable. No cardiomegaly. Bones/joints: Several old right posterior rib fractures. XR/XR chest 1V portable [id number] IMPRESSION: 1. No focal acute pulmonary disease. 2. No change from prior.
[2021-08-10 20:59] VITALS: O2SAT 96
[2021-08-10 21:01] LABS: Basophils # 0.1 10^3/uL (0.0-0.1); Basophils % 0.7 %; Hematocrit 44.7 % (42.0-52.0); Hemoglobin 13.5 g/dL (11.7-16.6); Lymphocytes # 1.2 10^3/uL (0.8-4.8); Lymphocytes % 10.1 %; Mean Corpuscular HGB Conc 30.2 g/dL (30.0-36.0); Mean Corpuscular Volume 96.1 fl (80-94); Monocytes # 0.8 10^3/uL (0.2-0.9); Monocytes % 6.9 %; Neutrophils # 9.57 10^3/uL (1.8-7.7); Neutrophils % 81.9 %; Nucleated Red Blood Cells % 0 %; Platelet Count 224 10^3/cmm (130-400); Red Blood Count 4.65 10^6/uL (4.1-5.3); Red Cell Distribution Width 13.2 % (12.1-15.1); White Blood Count 11.7 10^3/uL (4.0-10.0)
[2021-08-10 21:02] LABS: Add Urine Microscopic? NO; Charge for UA Resulting for Rev
--- NOTE | 2021-08-10 21:03 | PC.NURSE ---
patient arrived via EMS stretcher with CHF exacerbation for 2-4 days. bilateral legs with 3+ non pitting edema. states symptoms increase with exertion. states had difficulty urinating but declines pruitt catheter at this time. lungs sound wet, EMS gave A&A, lasix 80mg, NGT x1, and oxygen.
[2021-08-10 21:08] LABS: Bilirubin Urine Neg (Negative); Blood Urine Neg (Negative); Glucose Urine UA Norm (Normal); Ketones Urine Negative (Negative); Leukocyte Esterase Urine Negative (Negative); Nitrate Urine Negative (Negative); Protein Urine Neg (Negative); Urine Appearance Clear (CLEAR); Urine Color Yellow (Yellow); Urobilinogen Urine Norm (Negative); pH Urine 6 (5-7)
[2021-08-10 21:11] LABS: ABG PCO2 69.8 mmHg (35-45); Base Excess ABG 14.9 mmol/L (-2.0-2.0); Blood Gas Sample Site Brachial, right; Blood Gas Sample Type Arterial; HCO3 ABG 43.3 mmol/L (22-26); Oxygen Device NC; PO2 ABG 75.9 mmHg (80.0-100.0)
[2021-08-10 21:25] LABS: Troponin(5th) Baseline 64 ng/L (0-15)
[2021-08-10 21:32] LABS: NT Pro B Type Natriuretic Pept 1830 pg/mL (0-125); Procalcitonin 0.04 ng/mL (0-0.5)
[2021-08-10 21:43] LABS: Alanine Aminotransferase 10 U/L (0-41); Albumin Level 4.3 g/dL (3.5-5.2); Alkaline Phosphatase 117 IU/L (40-130); Anion Gap 11.8 (5-19); Aspartate Amino Transferase 19 U/L (0-40); Blood Urea Nitrogen 26 mg/dL (8-23); C Reactive Protein 7.4 mg/L (0.0-4.9); Calcium 9.4 mg/dL (8.5-10.5); Carbon Dioxide 39 mmol/L (22-29); Chloride 91 mmol/L (98-107); Globulin 2.5 g/dL (1.3-4.6); Glomerular Filtration Rate 95.8 mL/min (90-130); Glucose 107 mg/dL (65-115); Osmolality Calculated 289 mOsm/kg (285-295); Potassium 4.8 mmol/L (3.5-5.1); Sodium 137 mmol/L (136-145); Total Bilirubin 0.6 mg/dL (0.15-1.2); Total Protein 6.8 g/dL (6.6-8.7)
[2021-08-10 22:03] LABS: D Dimer 1.11 ug/mIFEU (0-0.59)
--- NOTE | 2021-08-10 22:34 | ED_ITS ---
HPI - SOB/Dyspnea General: Chief Complaint: Shortness of Breath/Dyspnea Stated Complaint: SOB, CHF Time Seen by Provider: 08/10/21 20:43 Source: patient History of Present Illness: HPI Narrative: 71 yo male with hx of diastolic hf, cor pulmonale, and end stage copd. Has hadincreasing sob for past couple of days. cough without significant sputum production. increased swelling to LE. no fever. no chest pain. MD elicited complaint: shortness of breath and cough Pertinent past history: COPD Onset (ago): day(s) Context: medication noncompliance Timing: constant and progressively worsening Exacerbating factors: lying flat and exertion Relieving factors: oxygen, bronchodilators and other (lasix 80mg iv en route) Known history of: COPD and congestive heart failure Associated symptoms: Reports chest congestion, cough, nausea and orthopnea; Deny abdominal pain, chest pain, dizziness, fever(s), hemoptysis, palpitations or vomiting Treatment prior to arrival: bronchodilator and diuretics Review of Systems Const: Denies: fever(s) Card: Reports: orthopnea; Denies: chest pain or palpitations Resp: Reports: chest congestion; Denies: hemoptysis GI: Reports: nausea; Denies: abdominal pain or vomiting Neuro: Denies: dizziness PFSH ED PFSH: Medical History Acquired bilateral hammer toes Acute diverticulitis Bee sting allergy Bilateral bunions Bulging lumbar disc Cardiomyopathy Chronic bilateral low back pain Chronic erythematous candidosis Chronic low back pain Chronic nausea Chronic respiratory failure with hypoxia Compression fracture of thoracic vertebra COPD (chronic obstructive pulmonary disease) Degenerative disc disease Dysphagia, unspecified Emphysema, unspecified GERD (gastroesophageal reflux disease) History of colon cancer Hypersomnia Impaired mobility and activities of daily living Lesion of true vocal cord Lower extremity edema Mixed hyperlipidemia Nicotine addiction Nicotine dependence, cigarettes, uncomplicated Nocturia Onychomycosis MANISH (obstructive sleep apnea) Other specified joint disorders, right shoulder PAD (peripheral artery disease) Polyneuropathy, unspecified Sebaceous cyst of scrotum Segmental and somatic dysfunction of rib cage Blanco-Isaac syndrome Vasomotor rhinitis Venous reflux Surgical History H/O foot surgery H/O hernia repair History of back surgery History of cholecystectomy History of esophagogastroduodenoscopy (EGD) History of partial colectomy Family History Mother , Age 73 Hodgkin disease Cancer Father , Age 67 Stroke Social History Smoking and tobacco status: former smoker Quit status (tobacco): considering quitting Second hand smoke exposure: Yes Smoking risk assessment/counseling performed?: Yes Alcohol intake: never Desire information about alcohol rehabilitation?: No Counseling given: No Desire information about substance/drug rehabilitation?: No Counseling given: Yes Lives independently: Yes Household members: spouse Marital status: Highest education level completed: Some College, No Degree service: No Current occupational status: retired History of recent travel: No Current gender identity: Male Physical Exam Const: GENERAL APPEARANCE: cooperative, ill appearing and frail appearing HENMT: COMMON NORMALS: normocephalic, atraumatic and external ears normal HEAD & SCALP: normocephalic and atraumatic NOSE: Abnormal mucous membranes and turbinates present EXTERNAL EAR: Yes external ears normal THROAT: posterior oropharynx normal Eye: COMMON NORMALS: Equal, round and reactive pupils present and EOMs intact bilaterally PUPIL: Yes Equal, round and reactive pupils present Chest: COMMONS NORMALS: normal inspection of the chest Resp: EFFORT & INSPECTION: Yes tachypneic, Yes respiratory distress and Yes uses accessory muscles AUSCULTATION: rales and wheezes Cardio: RATE: tachycardic RHYTHM: abnormal rhythm irregularly irregular GI: COMMON NORMALS: Soft to palpation and non-tender PALPATION: Yes Soft to palpation OTHER: pain pump present Extremity: NARRATIVE EXTREMITY EXAM: 2-3+ edema present. And stasis dermatitis present. Changes of peripheral arterial disease to the toes. Neuro: GAURANG COMA SCALE: document GCS findings Gaurang coma scale eye opening: Spontaneous Gaurang coma scale verbal response: Orientated Gaurang coma scale motor response: Obey commands Brandenburg coma scale total score: 15 Skin: NARRATIVE SKIN EXAM: Feet are caked with dirt. see above for extremity changes otherwise. Course Consultations: Consultation #1: ayaz Vital Signs: Vital signs: Vital Signs Temperature 97.5 F L 08/10/21 20:37 Pulse Rate 74 08/10/21 20:37 Respiratory Rate 24 H 08/10/21 20:37 Blood Pressure 127/86 08/10/21 20:37 Pulse Oximetry 96 08/10/21 20:59 MDM - SOB/Dyspnea Medical Decision Making Patient has put out a significant amount of urine. He adamantly declined [place] placement. I believe there is some obstructive uropathy present likely exacerbating his inability to diurese completely. His BUN is 26, creatinine 0.8. Hemoglobin is normal. White blood cell count 11.7 no infiltrate or effusion, no pulmonary edema on chest x-ray. His BNP is elevated though. Saturations have improved a bit after Lasix, but now the patient is wheezing significantly. Blood gas shows a compensated respiratory acidosis. No come in for treatment of exacerbation of diastolic heart failure and COPD, which is end- stage Lab Data : 08/10/21 20:45 08/10/21 20:45 Labs/Radiology: Radiology Impressions Chest X-Ray 08/10/21 20:45 IMPRESSION: 1. No focal acute pulmonary disease. 2. No change from prior. Laboratory Results WBC 11.7 10^3/uL (4.0-10.0) H 08/10/21 20:45 RBC 4.65 10^6/uL (4.1-5.3) 08/10/21 20:45 Hgb 13.5 g/dL (11.7-16.6) 08/10/21 20:45 Hct 44.7 % (42.0-52.0) 08/10/21 20:45 MCV 96.1 fl (80-94) H 08/10/21 20:45 MCH 29.0 pg (28.0-34.0) 08/10/21 20:45 MCHC 30.2 g/dL (30.0-36.0) 08/10/21 20:45 RDW 13.2 % (12.1-15.1) 08/10/21 20:45 Plt Count 224 10^3/cmm (130-400) 08/10/21 20:45 MPV 11.0 fL (7.4-10.4) H 08/10/21 20:45 Neut % (Auto) 81.9 % 08/10/21 20:45 Lymph % (Auto) 10.1 % 08/10/21 20:45 Swift % (Auto) 6.9 % 08/10/21 20:45 Eos % (Auto) 0.0 % 08/10/21 20:45 Baso % (Auto) 0.7 % 08/10/21 20:45 Neut # (Auto) 9.57 10^3/uL (1.8-7.7) H 08/10/21 20:45 Lymph # (Auto) 1.2 10^3/uL (0.8-4.8) 08/10/21 20:45 Swift # (Auto) 0.8 10^3/uL (0.2-0.9) 08/10/21 20:45 Eos # (Auto) 0.0 10^3/uL (0.0-0.8) 08/10/21 20:45 Baso # (Auto) 0.1 10^3/uL (0.0-0.1) 08/10/21 20:45 Nucleated RBC % (auto) 0 % 08/10/21 20:45 Nucleated RBCs # 0.0 /100WBC 08/10/21 20:45 D-Dimer 1.11 ug/mIFEU (0-0.59) H 08/10/21 21:46 Specimen Type Arterial 08/10/21 21:00 Sample Site Brachial, right 08/10/21 21:00 ABG pH 7.40 (7.35-7.45) 08/10/21 21:00 ABG pCO2 69.8 mmHg (35-45) H* 08/10/21 21:00 ABG pO2 75.9 mmHg (80.0-100.0) L 08/10/21 21:00 ABG HCO3 43.3 mmol/L (22-26) H 08/10/21 21:00 ABG Base Excess 14.9 mmol/L (-2.0-2.0) H 08/10/21 21:00 Placido Test N/a 08/10/21 21:00 Hematocrit 42.0 % (42-52) 08/10/21 21:00 O2 Delivery Device Nc 08/10/21 21:00 O2 Liters/Min 6.0 % 08/10/21 21:00 Sofa Cover Inspector ID Hinja 08/10/21 21:00 Sodium 137 mmol/L (136-145) 08/10/21 20:45 Potassium 4.8 mmol/L (3.5-5.1) 08/10/21 20:45 Chloride 91 mmol/L (98-107) L 08/10/21 20:45 Carbon Dioxide 39 mmol/L (22-29) H 08/10/21 20:45 Anion Gap 11.8 (5-19) 08/10/21 20:45 BUN 26 mg/dL (8-23) H 08/10/21 20:45 Creatinine 0.8 mg/dL (0.7-1.2) 08/10/21 20:45 GFR Calculation 95.8 mL/min (90-130) 08/10/21 20:45 Glucose 107 mg/dL (65-115) 08/10/21 20:45 Calculated Osmolality 289 mOsm/kg (285-295) 08/10/21 20:45 Calcium 9.4 mg/dL (8.5-10.5) 08/10/21 20:45 Total Bilirubin 0.6 mg/dL (0.15-1.2) 08/10/21 20:45 AST 19 U/L (0-40) 08/10/21 20:45 ALT 10 U/L (0-41) 08/10/21 20:45 Alkaline Phosphatase 117 IU/L (40-130) 08/10/21 20:45 Troponin T Baseline 64 ng/L (0-15) H 08/10/21 20:45 Troponin T 120 Minute 66.31 ng/L (0-15) H 08/10/21 22:57 Delta Troponin T 2.31 ABS# (0-10) 08/10/21 22:57 C-Reactive Protein 7.4 mg/L (0.0-4.9) H 08/10/21 20:45 NT-Pro-B Natriuret Pep 1830 pg/mL (0-125) H 08/10/21 20:45 Total Protein 6.8 g/dL (6.6-8.7) 08/10/21 20:45 Albumin 4.3 g/dL (3.5-5.2) 08/10/21 20:45 Globulin 2.5 g/dL (1.3-4.6) 08/10/21 20:45 Procalcitonin 0.04 ng/mL (0-0.5) 08/10/21 20:45 Urine Color Yellow (Yellow) 08/10/21 20:50 Urine Appearance Clear (CLEAR) 08/10/21 20:50 Urine pH 6 (5-7) 08/10/21 20:50 Ur Specific Outing 1.010 (1.005-1.030) 08/10/21 20:50 Urine Protein Neg (Negative) 08/10/21 20:50 Urine Glucose (UA) Norm (Normal) 08/10/21 20:50 Urine Ketones Negative (Negative) 08/10/21 20:50 Urine Blood Neg (Negative) 08/10/21 20:50 Urine Nitrate Negative (Negative) 08/10/21 20:50 Urine Bilirubin Neg (Negative) 08/10/21 20:50 Urine Urobilinogen Norm mg/dL (Negative) 08/10/21 20:50 Ur Leukocyte Esterase Negative (Negative) 08/10/21 20:50 Coronavirus 229E (PCR) Not detected (NOT DETECT) 08/10/21 20:50 SARS-CoV-2 (PCR) Not detected (NOT DETECT) 08/10/21 20:50 Discharge Plan Discharge Patient Disposition: Admitted As Inpatient Clinical Impression: Respiratory failure Qualifiers: Chronicity: acute on chronic Respiratory failure complication: hypoxia and hypercapnia Qualified Code(s): J96.21 - Acute and chronic respiratory failure with hypoxia Condition: Fair Coding Level of Care Code ED Air Duct Mechanic for Seymour Fwd Exam Comprehensive
[2021-08-10 22:41] LABS: Adenovirus Not Detected (NOT DETECT); Chlamydia Pneumoniae Not Detected (NOT DETECT); Coronavirus 229E,HKU1,NL63,OC4 Not Detected (NOT DETECT); Human Metapneumovirus Not Detected (NOT DETECT); Human Rhinovirus/Enterovirus Not Detected (NOT DETECT); Influenza A Not Detected (NOT DETECT); Influenza A H1 Not Detected (NOT DETECT); Influenza A H1-2009 Not Detected (NOT DETECT); Influenza A H3 Not Detected (NOT DETECT); Influenza B Not Detected (NOT DETECT); Mycoplasma Pneumoniae Not Detected (NOT DETECT); Parainfluenza Virus Type 1 Not Detected (NOT DETECT); Parainfluenza Virus Type 2 Not Detected (NOT DETECT); Parainfluenza Virus Type 3 Not Detected (NOT DETECT); Parainfluenza Virus Type 4 Not Detected (NOT DETECT); Respiratory Syncytial Virus A Not Detected (NOT DETECT); Respiratory Syncytial Virus B Not Detected (NOT DETECT); SARS-COV-2 Not Detected (NOT DETECT)
[2021-08-10 23:31] LABS: Troponin 5 2HR 66.31 ng/L (0-15)
[2021-08-10 23:58] LABS: Troponin 5 2HR Delta 2.31 ABS# (0-10)
[2021-08-11] VITALS (17 sets, daily range): BP systolic 97–153; BP diastolic 62–94; PULSE 69–103; RESP 12–22; TEMP 36.6–37.2; O2SAT 85–97; BMI 25.9
--- NOTE | 2021-08-11 02:34 | USCV_ITS ---
Elise [place] Age: 71 Gender: M : 1950 Exam Date: 08/11/2021 05:55 Ordering Phys: Oliverio Malagon MD Technologist: Lana Haynes Exam Location: [facility] – [place] Indication: HF AND SOB BP: 97 / 53 HR: 71 Rhythm: Sinus Technical Quality: Adequate MEASUREMENTS (Male / Female) Normal Values 2D ECHO LV Diastolic Diameter PLAX 4.4 cm 4.2 - 5.9 / 3.9 - 5.3 cm LV Systolic Diameter PLAX 3.7 cm LV Chamber Size 4.0 cm IVS Diastolic Thickness 5.3 cm 0.6 - 1.0 / 0.6 - 0.9 cm IVS Systolic Thickness 1.2 cm LVPW Diastolic Thickness 1.1 cm 0.6 - 1.0 / 0.6 - 0.9 cm LVPW Systolic Thickness 1.9 cm RV Chamber Size 3.7 cm LVOT Diameter 2.0 cm LV Ejection Fraction 2D Teich 52.8 % LV Ejection Fraction MOD 2C 56.0 % LV Ejection Fraction 2C AL 58.6 % LA Diameter 4.0 cm LA Width 4.4 cm LA Height 4.9 cm RA Width 3.7 cm RA Height 4.3 cm Aorta at Sinotubular Diameter 3.1 cm M-MODE Aortic Annulus Diameter 2.5 cm LA Ao Ratio MM 0.9 MV E Point Septal Separation 0.6 cm DOPPLER AV Peak Velocity 88.0 cm/s LVOT Peak Velocity 85.0 cm/s AV Area Cont Eq vti 3.7 cm squared AV Area Cont Eq pk 3.1 cm squared MV Area PHT 4.9 cm squared Mitral E to A Ratio 1.0 MV E' Velocity 90.0 cm/s TR Peak Velocity 173.0 cm/s TR Peak Gradient 12.0 mmHg TR Mean Velocity 109.9 cm/s TR Mean Gradient 5.7 mmHg TR Velocity Time Integral 41.6 cm TV Peak E Velocity 58.0 cm/s Right Atrial Pressure 15.0 mmHg Pulmonary Artery Systolic Pressu 27.0 mmHg PV Peak Velocity 73.0 cm/s RV Acceleration Time 0.2 s RV Ejection Time 0.4 s RV AcT/ET 0.4 FINDINGS Left Ventricle Normal left ventricular size and systolic function, EF 59 %. Mild left ventricular hypertrophy. No regional wall motion abnormalities. Segmental wall motion analysis somewhat difficult because of the poor ultrasonic window.Grade II/IV diastolic dysfunction, moderately elevated filling pressures. Right Ventricle The right ventricle is normal in size and function. Right Atrium The right atrium is normal in size. Left Atrium Mildly increased left atrial size. Mitral Valve No gross abnormalities noted Aortic Valve No gross abnormalities noted Tricuspid Valve Trace tricuspid valve regurgitation. Pulmonic Valve Pulmonic valve not well visualized. Pericardium Normal pericardium without effusion. Aorta Normal aortic annulus size. CONCLUSIONS Normal left ventricular size and systolic function, EF 59 %. Mild left ventricular hypertrophy. No regional wall motion abnormalities. Segmental wall motion analysis somewhat difficult because of the poor ultrasonic window. Mildly increased left atrial size. Type II diastolic dysfunction. Trace tricuspid valve regurgitation. There is no pericardial effusion. There are no intracardiac masses. Technically difficult study because of the poor ultrasonic window. Dr Lilly Rowell MD FAC (Electronically Signed) Final Date: 11 August 2021 09:33 S
--- NOTE | 2021-08-11 02:35 | PM.HP ---
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 Patient has been admitted multiple times in the past for similar issue.Patient also complained increasing bilateral lower extremity edema. In route to emergency room patient was given 80 mg of Lasix IV x1. Laboratory workup arrival showed a WBC of 11.7, hemoglobin 13.5, hematocrit 44.7 and a platelet count of 224. D-dimer 1.11. PH 7.40, pCO2 of 69.8, PO2 of 75.9 and a bicarb of 43.3. This was on 6 L of O2 via nasal cannula. Sodium 137, potassium 4.8, chloride 91, bicarb 39, BUN 26 and creatinine of 0.8. Troponin T baseline of 64. Repeat of 66.3. ProBNP of 1830. Urinalysis was normal. COVID-19 PCR not detected. Chest x-ray did not show any focal acute cardiopulmonary abnormality. AVAPS EPAP 8 maximum and straight pressure 30 pulling tidal volume 3 50-400ml Review of Systems General: Reports: 10 or more systems reviewed and unremarkable except in HPI and below Medications/Allergies Home Medications Medication Instructions Recorded Confirmed Last Taken Type albuterol sulfate 2.5 mg INHALATION QID PRN 06/21/19 08/02/21 08/23/19 History butenafine 1 % topical cream 1 applic TOPICAL BID PRN 06/21/19 08/02/21 08/23/19 History (Lotrimin Ultra) cyclosporine 0.05 % eye drops 1 drop OPHTHALMIC (EYE) Q12H 06/21/19 08/02/21 08/23/19 History (Restasis MultiDose) epinephrine 0.3 mg/0.3 mL 0.3 mg IM ONCE PRN 06/21/19 08/02/21 Unknown History injection, auto-injector mupirocin 2 % topical ointment 1 applic TOPICAL BID #22 gm 01/18/20 08/02/21 Unknown Rx walker with seat /wheels #1 ea 01/20/20 08/02/21 Unknown Rx albuterol sulfate 90 mcg/actuation See Rx Instructions .ROUTE 03/26/20 08/02/21 Unknown Rx aerosol inhaler (ProAir HFA) .COMPLEX #8.5 gm azelastine 137 mcg (0.1 %) nasal 1 - 2 spray INTRANASAL BID 07/05/20 08/02/21 06/10/21 History spray aerosol naloxone 4 mg/actuation nasal 4 mg INTRANASAL Q2M PRN #2 ea 07/24/20 08/02/21 Unknown Rx spray (Narcan) ipratropium 0.5 mg-albuterol 3 mg See Rx Instructions .ROUTE 08/02/20 08/02/21 Unknown Rx (2.5 mg base)/3 mL nebulization .COMPLEX #360 ml soln levocetirizine 5 mg tablet (Xyzal) 5 mg PO DAILY 10/03/20 08/02/21 06/10/21 History losartan 25 mg tablet 25 mg PO DAILY #90 tab 10/05/20 08/02/21 06/10/21 Rx montelukast 10 mg tablet See Rx Instructions .ROUTE 10/31/20 08/02/21 06/10/21 Rx .COMPLEX #30 tab magnesium L-lactate 84 mg See Rx Instructions .ROUTE 12/26/20 08/02/21 06/10/21 Rx tablet,extended release (Magtab) .COMPLEX #30 tab honey 80 % topical gel (MediHoney 1 applic TOPICAL BID 30 Days #44 ml 02/07/21 08/02/21 Unknown Rx (honey)) metoprolol tartrate 25 mg tablet 25 mg PO BID #60 tab 04/29/21 08/02/21 06/10/21 Rx potassium chloride 20 mEq See Rx Instructions .ROUTE 05/27/21 08/02/21 06/10/21 Rx tablet,extended release .COMPLEX #120 tab aspirin 81 mg tablet,delayed 81 mg PO DAILY #90 tab 05/30/21 08/02/21 06/10/21 Rx release (Adult Aspirin Regimen) atorvastatin 40 mg tablet 40 mg PO DAILY #90 tab 05/30/21 08/02/21 06/10/21 Rx spironolactone 25 mg tablet 25 mg PO DAILY #30 tab 05/30/21 08/02/21 06/10/21 Rx oxycodone 60 mg tablet,crush 60 mg PO BID 06/11/21 08/02/21 Unknown History resistant,extended release 12 hr (OxyContin) furosemide 20 mg tablet 40 mg PO EVERY OTHER DAY #120 tab 06/13/21 08/02/21 06/10/21 Rx azithromycin 500 mg tablet 500 mg PO EVERY OTHER DAY #45 tab 06/28/21 08/02/21 Unknown Rx budesonide 0.5 mg/2 mL suspension 0.5 mg (2 mL) INHALATION BID 90 06/28/21 08/02/21 Unknown Rx for nebulization (Pulmicort) Days #360 ml pantoprazole 40 mg tablet,delayed See Rx Instructions .ROUTE 06/28/21 08/02/21 Unknown Rx release .COMPLEX #30 tab prednisone 5 mg tablet 5 mg PO DAILY #30 tab 06/28/21 08/02/21 Unknown Rx budesonide-formoterol HFA 160 2 puff INHALATION BID 07/01/21 08/02/21 Unknown History mcg-4.5 mcg/actuation aerosol inhaler (Symbicort) lidocaine HCl 2 % mucosal solution See Rx Instructions .ROUTE 07/01/21 08/02/21 Unknown Rx (Lidocaine Viscous) .COMPLEX #600 ml tiotropium bromide 18 mcg capsule 1 cap INHALATION DAILY 30 Days #60 07/01/21 08/02/21 Unknown Rx with inhalation device (Spiriva inh with HandiHaler) prednisone 50 mg tablet 50 mg PO DAILY #5 tab 07/08/21 08/02/21 Unknown Rx amoxicillin 875 mg-potassium 1 tab PO BID #20 tab 07/16/21 08/02/21 Unknown Rx clavulanate 125 mg tablet (Augmentin) hydrocodone 5 mg-acetaminophen 325 1 tab PO Q6H PRN #14 tab 07/22/21 08/02/21 Unknown Rx mg tablet citalopram 40 mg tablet 40 mg PO DAILY 30 Days #30 tab 07/24/21 08/02/21 Unknown Rx morphine 30 mg immediate release 30 mg PO TID PRN 30 Days #90 tab 08/02/21 08/02/21 Unknown Rx tablet Allergies Allergy/AdvReac Type Severity Reaction Status Date / Time levofloxacin Allergy Severe ALGY-Difficulty Verified 07/01/21 11:59 Breathing methadone Allergy Severe ALGY-Swell Verified 07/01/21 11:59 Lip/Tongue/Throat bee venom protein (honey bee) Allergy ALGY-Anaphy Verified 07/01/21 11:59 laxis Penicillins Allergy Unknown Verified 07/01/21 11:59 fentanyl AdvReac ADR-Shakine Verified 07/01/21 11:59 ss gabapentin [From Neurontin] AdvReac Unknown Verified 07/01/21 11:59 PFSH Acute PFSH: Medical History Acquired bilateral hammer toes Acute diverticulitis Bee sting allergy Bilateral bunions Bulging lumbar disc Cardiomyopathy Chronic bilateral low back pain Chronic erythematous candidosis Chronic low back pain Chronic nausea Chronic respiratory failure with hypoxia Compression fracture of thoracic vertebra COPD (chronic obstructive pulmonary disease) Degenerative disc disease Dysphagia, unspecified Emphysema, unspecified GERD (gastroesophageal reflux disease) History of colon cancer Hypersomnia Impaired mobility and activities of daily living Lesion of true vocal cord Lower extremity edema Mixed hyperlipidemia Nicotine addiction Nicotine dependence, cigarettes, uncomplicated Nocturia Onychomycosis MANISH (obstructive sleep apnea) Other specified joint disorders, right shoulder PAD (peripheral artery disease) Polyneuropathy, unspecified Sebaceous cyst of scrotum Segmental and somatic dysfunction of rib cage Blanco-Isaac syndrome Vasomotor rhinitis Venous reflux Surgical History H/O foot surgery H/O hernia repair History of back surgery History of cholecystectomy History of esophagogastroduodenoscopy (EGD) History of partial colectomy Family History Mother , Age 73 Hodgkin disease Cancer Father , Age 67 Stroke Social History Smoking and tobacco status: former smoker Quit status (tobacco): considering quitting Second hand smoke exposure: Yes Smoking risk assessment/counseling performed?: Yes Alcohol intake: never Desire information about alcohol rehabilitation?: No Counseling given: No Desire information about substance/drug rehabilitation?: No Counseling given: Yes Lives independently: Yes Household members: spouse Marital status: Highest education level completed: Some College, No Degree service: No Current occupational status: retired History of recent travel: No Current gender identity: Male Vitals/I&O/Wt Last Vital Signs Temp 97.5 F L 08/10/21 20:37 Pulse 74 08/10/21 20:37 Resp 24 H 08/10/21 20:37 BP 127/86 08/10/21 20:37 Pulse Ox 96 08/10/21 20:59 Weight last 48 hrs Weight 94.376 kg Weight 107.955 kg Physical Exam Narrative: General -alert awake and oriented HEENT- grossly unremarkable exp superficial wound on nasal bridge. CVS- regular rate rhythm Chest- Nonlabored respiration, decrease at bases Abdomen- soft nontender nondistended Extremities- bilateral edema R>L Data : 08/10/21 20:45 08/10/21 20:45 A&P Assessment and plan (1) Acute on chronic respiratory failure with hypoxia and hypercapnia: Unclear if patient was using his AVAPS Resume - order placed EPAP 8 max 20-30 pressure TV 400 Will continue neb chest xray - no acute finding May consider CTA chest Solu-medrol 40 mg IV q8hr No evidence of infectious process on chest xray Procal in am Consider pulmonary consult Status: Acute (2) Acute on chronic systolic (congestive) heart failure: Chest xray - no evidence of pulmonary edema S/p lasix 80 mg IV x 1 in EMS Will hold on further lasix may consider resuming po in am ECHo ordered LE edema R>L - venous doppler ordered Status: Acute (3) Cor pulmonale, chronic: Noted on prior echo management as noted above. Status: Acute (4) DVT prophylaxis: Heparin 5000 units q8hr Status: Acute Plan Verify home meds in AM and restart. Attestations Medical Necessity Statement*: Will require > 2 midnight stay in hospital for eval and treatment Time Spent in Patient Care: Greater than 35 minutes Coding Level of Care Code Acute Marketing Performance Analyst for Seymour Fwd Diagnoses Acute on chronic respiratory failure with hypoxia and hypercapnia J96.21; J96.22 Acute on chronic systolic (congestive) heart failure I50.23 Cor pulmonale, chronic I27.81 DVT prophylaxis Z29.9
[2021-08-11] MEDS: heparin 5,000 unit/mL INJ 1 mL 5000 UNIT SUBCUT ×3 (02:36→17:44)
--- NOTE | 2021-08-11 02:45 | ECG_ITS ---
[facility] Test Date: 2021-08-11 Pat Name: Jaime Olivares Department: Room: 250 Gender: Male [employer]: : 1950 Requested By: Bonifacio Hearn Order Number: [id number] Nora MD: Lilly Rowell M.D. Measurements Intervals [place] Rate: 61 P: 58 TX: 194 QRS: -40 QRSD: 91 T: 28 QT: 394 QTc: 398 Interpretive Statements SINUS RHYTHM WITH? Sinus pauses POSSIBLE ANTERIOR MYOCARDIAL INFARCTION , PROBABLY OLD [30 ms Q WAVE IN V3/V4, OR R < 0.2 mV IN V4] INFERIOR MYOCARDIAL INFARCTION , PROBABLY OLD [40+ ms Q WAVE AND/OR ST/T ABNORMALITY IN II/aVF] Heavy baseline artifact Compared to ECG 08/10/2021 20:56:22 Ventricular premature complex(es) now present Myocardial infarct finding still present Defective EKG, need to repeat Electronically Signed On 08-12-2021 17:15:58 LINK FABRIC MACHINE OPERATOR by Lilly Rowell M.D. [email or web address]
[2021-08-11] MEDS: ipratropium-albuterol 3 mL Neb INHALATION ×3 (04:09→14:22)
--- NOTE | 2021-08-11 04:17 | USCV_ITS ---
Elise [place] Age: 71 Gender: M : 1950 Exam Date: 08/11/2021 06:27 Ordering Phys: Oliverio Malagon MD Technologist: Lana Haynes Exam Location: [facility] [place] Indication: RT LEG SWELLING HISTORY: RT LEG SWELLING PROCEDURES: Venous duplex imaging was performed in only the right lower extremity. The following venous structures were evaluated: common femoral vein, profunda vein, proximal portion of the greater saphenous vein, superficial femoral vein, and the popliteal vein. In addition, the posterior tibial and peroneal trunk were evaluated. Serial compression, augmentation maneuvers, and spectral Doppler flow evaluation were performed. FINDINGS: Normal 2-D Doppler and augmentation and compressibility throughout the lower extremity venous structures. Additional imaging through the proximal calf veins also reveals no thrombus. Limited evaluation of the greater saphenous vein is patent with no thrombus.. The veins were found to be easily compressible with spontaneous blood flow. Non pulsatile flow pattern. CONCLUSIONS No evidence of DVT in the above-mentioned identifiable veins. Dr Lilly Rowell MD [facility] (Electronically Signed) Final Date: 11 August 2021 21:26 S
[2021-08-11 06:26] LABS: Troponin 5 6HR 65.22 ng/L (0-15)
[2021-08-11 07:08] LABS: Troponin 5 6HR Delta 1.22 ng/L (0-12)
[2021-08-11] MEDS: acetaZOLAMIDE 250 mg Tablet PO (08:28)
[2021-08-11] MEDS: pantoprazole DR 40 mg Tablet PO (08:29)
--- NOTE | 2021-08-11 08:59 | P.MISC_ITS ---
Miscellaneous Note Note: This morning I evaluated the patient, spoke with his , I would recommend palliative consult, will request Dr. Rolon to evaluate him for palliative Patient currently is on nasal cannula, he does use trilogy at home He has been released from his pain management clinic in [place], currently PCP is prescribing opioids He gets oxycodone 30 mg 3 times a day for his back pain At the time of my evaluation I did not notice worsening of shortness of breath, he had the nasal cannula in his mouth Nonpurulent cellulitis of right leg, unkept appearance Poor hygiene Plan to discharge home with palliative consult by tomorrow
[2021-08-11] MEDS: mupirocin oint 22 gm 1 APPLIC TOPICAL ×3 (10:00→21:03)
[2021-08-11] MEDS: morphine IR 15 mg Tablet 30 MG PO ×2 (10:01→19:20)
[2021-08-11] MEDS: doxycycline 100 mg Tablet PO ×2 (10:02→17:44)
[2021-08-11] MEDS: sennosides-docusate Tablet 1 TAB PO (17:44)
[2021-08-11] MEDS: CELEcoxib 200 mg Capsule 400 MG PO (19:20)
[2021-08-11] MEDS: acetaminophen 325 mg Tablet 650 MG PO (21:04)
[2021-08-12] VITALS (10 sets, daily range): BP systolic 113–146; BP diastolic 64–88; PULSE 64–94; RESP 17–22; TEMP 36.3–36.7; O2SAT 83–100
[2021-08-12] MEDS: heparin 5,000 unit/mL INJ 1 mL 5000 UNIT SUBCUT ×2 (03:43→09:34)
[2021-08-12 05:25] LABS: Basophils % 0.1 %; Hematocrit 44.8 % (42.0-52.0); Hemoglobin 13.6 g/dL (11.7-16.6); Lymphocytes # 0.7 10^3/uL (0.8-4.8); Lymphocytes % 9.7 %; Mean Corpuscular HGB Conc 30.4 g/dL (30.0-36.0); Mean Corpuscular Hemoglobin 28.6 pg (28.0-34.0); Mean Corpuscular Volume 94.3 fl (80-94); Mean Platelet Volume 12.6 fL (7.4-10.4); Monocytes # 0.1 10^3/uL (0.2-0.9); Monocytes % 1.7 %; Neutrophils % 88.1 %; Nucleated Red Blood Cells % 0 %; Platelet Count 174 10^3/cmm (130-400); Red Blood Count 4.75 10^6/uL (4.1-5.3); Red Cell Distribution Width 13.1 % (12.1-15.1)
[2021-08-12] MEDS: ipratropium-albuterol 3 mL Neb INHALATION ×3 (08:49→08:52)
--- NOTE | 2021-08-12 09:30 | PM.DCS ---
Discharge Providers Date of Admission: 08/11/21 01:11 Date of Discharge: August 12, 2021 Attending Provider at Admission: Oliverio Malagon Attending Provider at Discharge: Kewrin Whiting MD Primary Care Provider: TINA Eastman Diagnoses at Discharge Discharge Diagnosis (1) Acute on chronic respiratory failure with hypoxia and hypercapnia: Status: Acute (2) Acute on chronic systolic (congestive) heart failure: Status: Acute (3) Cor pulmonale, chronic: Status: Acute (4) DVT prophylaxis: Status: Acute Reason for Visit Reason for Visit: SOB, CHF Hospital Course Hospital Course 71-year-old male who carries history of chronic hypoxic respiratory failure for which he is on 4 to 5 L of oxygen at baseline and requires trilogy at night and on as needed basis in the daytime. I recently discharged this patient from the hospital when he was admitted for COPD acute exacerbation, at that point trilogy was arranged from [facility]. Previously it was taken back because of his noncompliance. This time he presented to the hospital for worsening of shortness of breath however at the time of admission his pH was compensated no signs of pneumonia were seen on the chest x-ray, echo did not reveal any new wall motion abnormality. We did diurese him with spironolactone and used BiPAP which improved his symptoms. Contributing his recurrent admissions, end-stage COPD and opiate dependency for his compression fracture, rib fracture I recommended palliative consult. Dr. Araya will see him on . She recommended adding Celebrex during this hospitalization and discharging him home on his morphine regimen which she takes 30 mg every 8 hours. Of note he was recently released from pain management clinic [place] because he is not wanting to travel anymore, and MD was not feeling comfortable with telemetry consult. When I discussed goals of care patient stated that he he would like to discuss further with palliative consult. His was updated. Physical Exam Narrative: Patient is at his baseline keeping his nasal cannula in his mouth 4 L nasal cannula No acute respite distress Cachectic, malnourished Unkept appearance Onychomycosis S1, S2 Soft abdomen Nonfocal neuro exam Awake and alert Discharge Data Studies Completed and Pending Completed Studies During Hospitalization Category Date Time Status XR chest 1V portable [id number] Stat Exams 08/10/21 20:45 [place] [id number] Routine Ultrasound 08/11/21 04:17 Completed CV. echo complete* [id number] Routine Ultrasound 08/11/21 02:34 Completed Pending at discharge Category Date Time Status Comprehensive Metabolic Panel AM LABS Lab 08/12/21 04:00 Ordered Radiology Impressions Chest X-Ray 08/10/21 20:45 IMPRESSION: 1. No focal acute pulmonary disease. 2. No change from prior. Laboratory Results WBC 7.0 10^3/uL (4.0-10.0) 08/12/21 04:07 RBC 4.75 10^6/uL (4.1-5.3) 08/12/21 04:07 Hgb 13.6 g/dL (11.7-16.6) 08/12/21 04:07 Hct 44.8 % (42.0-52.0) 08/12/21 04:07 MCV 94.3 fl (80-94) H 08/12/21 04:07 MCH 28.6 pg (28.0-34.0) 08/12/21 04:07 MCHC 30.4 g/dL (30.0-36.0) 08/12/21 04:07 RDW 13.1 % (12.1-15.1) 08/12/21 04:07 Plt Count 174 10^3/cmm (130-400) 08/12/21 04:07 MPV 12.6 fL (7.4-10.4) H 08/12/21 04:07 Neut % (Auto) 88.1 % 08/12/21 04:07 Lymph % (Auto) 9.7 % 08/12/21 04:07 Clay % (Auto) 1.7 % 08/12/21 04:07 Eos % (Auto) 0.0 % 08/12/21 04:07 Baso % (Auto) 0.1 % 08/12/21 04:07 Neut # (Auto) 6.20 10^3/uL (1.8-7.7) 08/12/21 04:07 Lymph # (Auto) 0.7 10^3/uL (0.8-4.8) L 08/12/21 04:07 Clay # (Auto) 0.1 10^3/uL (0.2-0.9) L 08/12/21 04:07 Eos # (Auto) 0.0 10^3/uL (0.0-0.8) 08/12/21 04:07 Baso # (Auto) 0.0 10^3/uL (0.0-0.1) 08/12/21 04:07 Nucleated RBC % (auto) 0 % 08/12/21 04:07 Nucleated RBCs # 0.0 /100WBC 08/12/21 04:07 D-Dimer 1.11 ug/mIFEU (0-0.59) H 08/10/21 21:46 Specimen Type Arterial 08/10/21 21:00 Sample Site Brachial, right 08/10/21 21:00 ABG pH 7.40 (7.35-7.45) 08/10/21 21:00 ABG pCO2 69.8 mmHg (35-45) H* 08/10/21 21:00 ABG pO2 75.9 mmHg (80.0-100.0) L 08/10/21 21:00 ABG HCO3 43.3 mmol/L (22-26) H 08/10/21 21:00 ABG Base Excess 14.9 mmol/L (-2.0-2.0) H 08/10/21 21:00 Placido Test N/a 08/10/21 21:00 Hematocrit 42.0 % (42-52) 08/10/21 21:00 O2 Delivery Device Nc 08/10/21 21:00 O2 Liters/Min 6.0 % 08/10/21 21:00 Perinatal Tech ID Hinja 08/10/21 21:00 Sodium 137 mmol/L (136-145) 08/10/21 20:45 Potassium 4.8 mmol/L (3.5-5.1) 08/10/21 20:45 Chloride 91 mmol/L (98-107) L 08/10/21 20:45 Carbon Dioxide 39 mmol/L (22-29) H 08/10/21 20:45 Anion Gap 11.8 (5-19) 08/10/21 20:45 BUN 26 mg/dL (8-23) H 08/10/21 20:45 Creatinine 0.8 mg/dL (0.7-1.2) 08/10/21 20:45 GFR Calculation 95.8 mL/min (90-130) 08/10/21 20:45 Glucose 107 mg/dL (65-115) 08/10/21 20:45 Calculated Osmolality 289 mOsm/kg (285-295) 08/10/21 20:45 Calcium 9.4 mg/dL (8.5-10.5) 08/10/21 20:45 Total Bilirubin 0.6 mg/dL (0.15-1.2) 08/10/21 20:45 AST 19 U/L (0-40) 08/10/21 20:45 ALT 10 U/L (0-41) 08/10/21 20:45 Alkaline Phosphatase 117 IU/L (40-130) 08/10/21 20:45 Troponin T Baseline 64 ng/L (0-15) H 08/10/21 20:45 Troponin T 120 Minute 66.31 ng/L (0-15) H 08/10/21 22:57 Delta Troponin T 2.31 ABS# (0-10) 08/10/21 22:57 Troponin T Hi Sens 6Hr 65.22 ng/L (0-15) H 08/11/21 05:46 Troponin T Hi Sens 6Hr Delta 1.22 ng/L (0-12) 08/11/21 05:46 C-Reactive Protein 7.4 mg/L (0.0-4.9) H 08/10/21 20:45 NT-Pro-B Natriuret Pep 1830 pg/mL (0-125) H 08/10/21 20:45 Total Protein 6.8 g/dL (6.6-8.7) 08/10/21 20:45 Albumin 4.3 g/dL (3.5-5.2) 08/10/21 20:45 Globulin 2.5 g/dL (1.3-4.6) 08/10/21 20:45 Procalcitonin 0.04 ng/mL (0-0.5) 08/10/21 20:45 Urine Color Yellow (Yellow) 08/10/21 20:50 Urine Appearance Clear (CLEAR) 08/10/21 20:50 Urine pH 6 (5-7) 08/10/21 20:50 Ur Specific [place] 1.010 (1.005-1.030) 08/10/21 20:50 Urine Protein Neg (Negative) 08/10/21 20:50 Urine Glucose (UA) Norm (Normal) 08/10/21 20:50 Urine Ketones Negative (Negative) 08/10/21 20:50 Urine Blood Neg (Negative) 08/10/21 20:50 Urine Nitrate Negative (Negative) 08/10/21 20:50 Urine Bilirubin Neg (Negative) 08/10/21 20:50 Urine Urobilinogen Norm mg/dL (Negative) 08/10/21 20:50 Ur Leukocyte Esterase Negative (Negative) 08/10/21 20:50 Coronavirus 229E (PCR) Not detected (NOT DETECT) 08/10/21 20:50 SARS-CoV-2 (PCR) Not detected (NOT DETECT) 08/10/21 20:50 Vitals Last Vital Signs Temp 97.4 F L 08/12/21 07:32 Pulse 87 08/12/21 08:52 Resp 18 08/12/21 08:52 BP 132/88 08/12/21 07:32 Pulse Ox 97 08/12/21 08:52 Discharge Plan Discharge Patient Disposition: Home Condition: Stable Prescriptions: New doxycycline monohydrate 100 mg Tablet 100 mg PO BID Qty: 10 0RF celecoxib 100 mg Capsule 100 mg PO BID Qty: 20 0RF morphine 15 mg Tablet 30 mg PO Q8H PRN (Reason: Severe Pain) Qty: 9 0RF Continued aspirin [Adult Aspirin Regimen] 81 mg tablet,delayed release (DR/EC) 81 mg PO DAILY Qty: 90 1RF atorvastatin 40 mg tablet 40 mg PO DAILY Qty: 90 3RF spironolactone 25 mg tablet 25 mg PO DAILY Qty: 30 3RF morphine 30 mg tablet 30 mg PO TID PRN (Reason: Pain) 30 Days Qty: 90 0RF albuterol sulfate 2.5 mg /3 mL (0.083 %) solution for nebulization 2.5 mg INHALATION QID PRN (Reason: Shortness Of Breath) 0RF butenafine [Lotrimin Ultra] 1 % cream 1 applic TOPICAL BID PRN (Reason: Allergic Reaction) 0RF epinephrine 0.3 mg/0.3 mL auto-injector 0.3 mg IM ONCE PRN (Reason: Allergic Reaction) 0RF Restasis MultiDose 0.05 % drops 1 drop ophthalmic (eye) Q12H 0RF mupirocin 2 % ointment 1 applic TOPICAL BID Qty: 22 2RF levocetirizine [Xyzal] 5 mg tablet 5 mg PO DAILY 0RF budesonide-formoterol [Symbicort] 160-4.5 mcg/actuation HFA aerosol inhaler 2 puff inhalation BID 0RF Spiriva with HandiHaler 18 mcg capsule, w/inhalation device 1 cap inhalation DAILY 30 Days Qty: 60 3RF Rx Instructions: puncture 1 cap using device; one dose = 2 inhalations (DME) walker with seat /wheels See Rx Instructions .Route .MEDSUPPLY Qty: 1 0RF Rx Instructions: [id number] 99 months albuterol sulfate [ProAir HFA] 90 mcg/actuation HFA aerosol inhaler See Rx Instructions .ROUTE .COMPLEX Qty: 8.5 3RF Dose Instruction: INHALE 2 PUFFS INTO LUNGS EVERY 6 HOURS NEEDED FOR SHORTNESS OF BREATH Rx Instructions: INHALE 2 PUFFS INTO LUNGS EVERY 6 HOURS NEEDED FOR SHORTNESS OF BREATH ipratropium-albuterol 0.5 mg-3 mg(2.5 mg base)/3 mL solution for nebulization See Rx Instructions .ROUTE .COMPLEX Qty: 360 3RF Dose Instruction: NEBULIZE 1 VIAL FOUR TIMES DAILY NEEDED FOR WHEEZING Rx Instructions: NEBULIZE 1 VIAL FOUR TIMES DAILY NEEDED FOR WHEEZING losartan 25 mg tablet 25 mg PO DAILY Qty: 90 3RF MediHoney (honey) 80 % gel 1 applic topical BID 30 Days Qty: 44 2RF metoprolol tartrate 25 mg tablet 25 mg PO BID Qty: 60 5RF azithromycin 500 mg tablet 500 mg PO EVERY OTHER DAY Qty: 45 3RF budesonide [Pulmicort] 0.5 mg/2 mL suspension for nebulization 0.5 mg INHALATION BID 90 Days Qty: 360 3RF Lidocaine Viscous 2 % solution See Rx Instructions .ROUTE .COMPLEX Qty: 600 5RF Dose Instruction: TAKE ONE TEASPOONFUL ( 5 ML'S ) BY MOUTH EVERY THREE HOURS NEEDED FOR MOUTH PAIN Rx Instructions: TAKE ONE TEASPOONFUL ( 5 ML'S ) BY MOUTH EVERY THREE HOURS NEEDED FOR MOUTH PAIN citalopram 40 mg tablet 40 mg PO DAILY 30 Days Qty: 30 5RF hydrocodone-acetaminophen 5-325 mg tablet 1 tab PO Q6H PRN (Reason: pain) Qty: 14 0RF pantoprazole 40 mg tablet,delayed release (DR/EC) 40 mg PO DAILY 0RF montelukast 10 mg tablet 10 mg PO DAILY 0RF furosemide 20 mg tablet 40 mg PO BID 0RF Magtab 84 mg tablet extended release 84 mg PO DAILY 0RF potassium chloride 20 mEq tablet extended release 40 meq PO BID 0RF nystatin 100,000 unit/mL Suspension 5 ml BUCCAL DAILY 0RF Rx Instructions: SWISH AND SWALLOW ONE TEASPOONFUL ( 5 ML'S ) BY MOUTH FOUR TIMES DAILY azelastine 137 mcg (0.1 %) aerosol,spray 1 - 2 spray INTRANASAL BID 0RF Narcan 4 mg/actuation spray,non-aerosol 4 mg intranasal Q2M PRN (Reason: opioid overdose) Qty: 2 0RF Rx Instructions: spray 1 dose into ONE nostril; alternate nostrils w each dose until help arrives Discontinued oxycodone [OxyContin] 60 mg tablet,oral only,ext.rel.12 hr 60 mg PO BID 0RF prednisone 50 mg tablet 50 mg PO DAILY Qty: 5 0RF Discharge Orders: Discharge Order (Routine); Ordered 08/12/21 Ordered By: Kerwin Whiting Other Ambulatory Orders: DME: Oxygen (Order) Location: None Selected Ordered By: Kerwin Whiting Referrals: [facility] [Other] (Call this # to see if you qualify for in home services. They will ask you a series of questions and assign you points based off your answers. The total # of points you get assigned will determine if you qualify for in home services and how much you may qualify for.) [facility] [Other] (This # may be able to help you with in home services set up.) May Knapp FNP-C [Primary Care Provider] - 08/16/21 10:00 am Discharge Diet: Cardiac Discharge Activity: Increase activity as tolerated Patient Instructions: Doxycycline (By mouth), Morphine, Rapid Release (By mouth), Celecoxib (By mouth) (chelsi Miller), Heart Failure (DC), Cor Pulmonale (DC), COPD (Chronic Obstructive Pulmonary Disease) (DC), Opioid Safety Discharge Attestations Time Spent in Discharge Care*: less than 30 min Quality Metrics Clinical Quality Measures [ No reported AMI, CVA or VTE this stay] Coding Level of Care Code Acute Chg FW DC note Diagnoses Acute on chronic respiratory failure with hypoxia and hypercapnia J96.21; J96.22 Acute on chronic systolic (congestive) heart failure I50.23 Cor pulmonale, chronic I27.81 DVT prophylaxis Z29.9
[2021-08-12] MEDS: doxycycline 100 mg Tablet PO (09:32)
[2021-08-12] MEDS: pantoprazole DR 40 mg Tablet PO (09:32)
[2021-08-12] MEDS: sennosides-docusate Tablet 1 TAB PO (09:32)
[2021-08-12] MEDS: mupirocin oint 22 gm 1 APPLIC TOPICAL (09:44)
[2021-08-12] MEDS: morphine IR 15 mg Tablet 30 MG PO (09:46)
--- NOTE | 2021-08-12 12:02 | PC.CHAP ---
Pastoral Care Encounter/Spiritual Assessment Type of Contact [] Declined senior center director visit [] Patient/Family/Request visit [] Outpatient visit [] Follow-up visit [] Physician referral [] Code/Alert [x] Routine visit [] Staff referral [] Actively dying [] Patient sleeping [] Family support [] [] Out of room [] Palliative care [] [] Receiving care in room [] Pre-surgical visit [] Trauma [] Long length of stay [] ICU visit [] Other: Relational/Emotional Strength [x] Patient feels connected with others/family/visitors/staff []x Distress [] Loneliness/isolation [] Abandonment Spirituality of Patient [x] Person of Jessica [x] Attends Bahai of their Jessica [x] Believes in Prayer [x] Reads Bible or Nondenominational materials [] There are Spiritual issues to be addressed Jive Developer Interventions [x] Prayer [x] Active listening [x] Non-anxious presence [x] Spiritual/emotional support [] Crisis/trauma care [x] Spiritual counseling [] Bereavement support [] Provided bereavement packet [] Provided Bible/devotional materials [] Provided toy/stuffed animal, coloring book to patient or family member [] Provided Communion [] Anointing/[place] [] Salvation [x] Completed spiritual assessment [] Other: Impact on Illness or Injury [] Angry [] Fearful [] Anxious [] Often cries [] Exhaustion [] Unable to work [] Unable to attend roman catholic [] Unable to walk/stand [] Unable to read [] Unable to drive [] Unable to eat/drink [] Unable to sleep [] Unable to be with family [] Patient intubated [] Other: Summary Time spent with patient 10 min
== END 2021-08-12 16:20 | disposition home or self-care (01) | DRG 189 ==
LOC: ER 08-11 01:33 → MEDSURG 08-11 01:37
PROVIDERS: Admitting Provider Hospitalist; Emergency Provider Emergency Medicine; PCP Nurse Practitioner Family; Visit Provider Internal Medicine
DX: J96.21 Acute and chronic respiratory failure with hypoxia (principal); I50.23 Acute on chronic systolic (congestive) heart failure; E87.2 Acidosis; J96.22 Acute and chronic respiratory failure with hypercapnia; I27.81 Cor pulmonale (chronic); J44.9 Chronic obstructive pulmonary disease, unspecified; E78.2 Mixed hyperlipidemia; I11.0 Hypertensive heart disease with heart failure; I73.9 Peripheral vascular disease, unspecified; G62.9 Polyneuropathy, unspecified; K21.9 Gastro-esophageal reflux disease without esophagitis; G47.33 Obstructive sleep apnea (adult) (pediatric); Z85.038 Personal history of other malignant neoplasm of large intestine; Z85.21 Personal history of malignant neoplasm of larynx; Z92.3 Personal history of irradiation; Z99.81 Dependence on supplemental oxygen; Z79.82 Long term (current) use of aspirin; Z79.52 Long term (current) use of systemic steroids; Z79.891 Long term (current) use of opiate analgesic; Z79.899 Other long term (current) drug therapy
CPT/HCPCS: 36415; 71045; 80053; 81003; 82803; 83880; 84145; 84484; 85025; 85378; 86140; 87635; 93005; 93306; 93971; 94640; 94664; 96372; 97110; 97161; 97530; 99285; J1644; J2920

== ENCOUNTER 2021-09-07 08:15 | Emergency (ER) | payer MEDICAID, SELFPAY ==
[2021-09-07 08:20] VITALS: BMI 22.5
--- NOTE | 2021-09-07 08:39 | XRR_ITS ---
PROCEDURE INFORMATION: Exam: XR Chest Exam date and time: 09/07/2021 8:47 AM Age: 71 years old Clinical indication: Cough and dyspnea; Additional info: Dyspnea/cough TECHNIQUE: Imaging protocol: XR of the chest. Views: 1 view. COMPARISON: CR (CHEST, ) 08/10/2021 9:05 PM FINDINGS: Lungs: Left basilar airspace disease. Pleural spaces: Unremarkable. No pleural effusion. No pneumothorax. Heart/Mediastinum: Unremarkable. No cardiomegaly. Bones/joints: Remote right-sided fractures. XR/XR chest 1V portable [id number] IMPRESSION: Left basilar pneumonia.
--- NOTE | 2021-09-07 08:39 | ECG_ITS ---
[facility] Test Date: 2021-09-07 Pat Name: Jaime Olivares Department: Room: Gender: Male Care Advocate: : 1950 Requested By: Samir Adame Order Number: [id number] Nora MD: Mukul Don M.D. Measurements Intervals [place] Rate: 103 P: 62 CO: 140 QRS: -56 QRSD: 104 T: 25 QT: 353 QTc: 463 Interpretive Statements SINUS TACHYCARDIA WITH OCCASIONAL SUPRAVENTRICULAR PREMATURE COMPLEXES PATTERN CONSISTENT WITH PULMONARY DISEASE LEFT ANTERIOR FASCICULAR BLOCK [QRS AXIS <= -45, QR IN I, RS IN II] Compared to ECG 08/11/2021 03:32:32 Left anterior fascicular block now present Sinus rhythm no longer present Myocardial infarct finding no longer present Electronically Signed On 09-09-2021 9:03:13 CDT by Mukul Don M.D. [email or web address]
--- NOTE | 2021-09-07 08:47 | W.ED.SOB ---
HPI - SOB/Dyspnea General: Chief Complaint: Shortness of Breath/Dyspnea Stated Complaint: RESP DISTRESS Time Seen by Provider: 09/07/21 08:20 Source: patient Mode of arrival: EMS Limitations: no limitations History of Present Illness: HPI Narrative: 71-year-old male with a known history of COPD presents emergency room complaining of shortness of breath increase in productive cough with green sputum. He denies any chest pain. He has been doing his regular medications. He normally is on oxygen at 6 L/min via nasal cannula. He frequently puts it in his mouth because he states he breathes through his mouth and that is the only way he can get enough oxygen. He has not had any orthopnea. No vomiting no diarrhea no fever sweats or chills. MD elicited complaint: shortness of breath and cough Pertinent past history: COPD Onset (ago): day(s) Timing: constant Severity: moderate Exacerbating factors: exertion and coughing Relieving factors: oxygen, rest and bronchodilators Known history of: COPD Associated symptoms: Reports chest congestion and cough; Deny abdominal pain, chest pain, diaphoresis, dizziness, extremity pain, fever(s), hemoptysis, lightheadedness, myalgias, nausea, orthopnea, palpitations, paresthesias, polydipsia, polyuria, rash, sense of impending doom, syncope or vomiting Treatment prior to arrival: oxygen and bronchodilator Review of Systems Const: Denies: fever(s) or diaphoresis ENMT: Denies: throat pain, ear or mastoid pain, nasal discharge or nasal congestion Card: Denies: chest pain, palpitations, lightheadedness, syncope or orthopnea Resp: Reports: dyspnea, productive cough, wheezing and chest congestion; Denies: hemoptysis GI: Denies: abdominal pain, nausea or vomiting : Denies: flank pain, dysuria, urinary frequency or urinary urgency Musc: Denies: extremity pain Skin/Breast: Denies: rash or pruritus Neuro: Denies: dizziness Endo: Denies: polyuria or polydipsia PFS ED PFSH: Medical History Acquired bilateral hammer toes Acute diverticulitis Acute on chronic respiratory failure with hypoxia and hypercapnia Acute on chronic systolic (congestive) heart failure Bee sting allergy Bilateral bunions Bulging lumbar disc Cardiomyopathy Chronic bilateral low back pain Chronic erythematous candidosis Chronic low back pain Chronic nausea Chronic respiratory failure with hypoxia Compression fracture of thoracic vertebra COPD (chronic obstructive pulmonary disease) Cor pulmonale, chronic Degenerative disc disease DVT prophylaxis Dysphagia, unspecified Emphysema, unspecified GERD (gastroesophageal reflux disease) History of colon cancer Hypersomnia Impaired mobility and activities of daily living Lesion of true vocal cord Lower extremity edema Mixed hyperlipidemia Nicotine addiction Nicotine dependence, cigarettes, uncomplicated Nocturia Onychomycosis MANISH (obstructive sleep apnea) Other specified joint disorders, right shoulder PAD (peripheral artery disease) Polyneuropathy, unspecified Respiratory failure Sebaceous cyst of scrotum Segmental and somatic dysfunction of rib cage Blanco-Isaac syndrome Vasomotor rhinitis Venous reflux Surgical History H/O foot surgery H/O hernia repair History of back surgery History of cholecystectomy History of esophagogastroduodenoscopy (EGD) History of partial colectomy Family History Mother , Age 73 Hodgkin disease Cancer Father , Age 67 Stroke Social History Smoking and tobacco status: current every day smoker Quit status (tobacco): considering quitting Second hand smoke exposure: Yes Smoking risk assessment/counseling performed?: Yes Alcohol intake: never Desire information about alcohol rehabilitation?: No Counseling given: No Desire information about substance/drug rehabilitation?: No Counseling given: Yes Lives independently: Yes Household members: spouse Marital status: Highest education level completed: Some College, No Degree service: No Current occupational status: retired History of recent travel: No Current gender identity: Male Physical Exam Const: GENERAL APPEARANCE: cooperative and comfortable ORIENTATION/CONSCIOUSNESS: Yes awake, Yes oriented to person, Yes oriented to place and Yes oriented to time HENMT: COMMON NORMALS: normocephalic, atraumatic and hearing grossly normal bilaterally HEAD & SCALP: normocephalic and atraumatic Resp: EFFORT & INSPECTION: Yes tachypneic AUSCULTATION: rhonchi and wheezes Cardio: COMMON NORMALS: regular rhythm and No murmurs present (Cardio) RATE: tachycardic RHYTHM: regular rhythm GI: COMMON NORMALS: Soft to palpation and No hepatosplenomegaly present AUSCULTATION: Yes normoactive bowel sounds PALPATION: Yes Soft to palpation, No Tenderness to palpation present (GI), No Guarding due to palpation present (GI) and Yes No hepatosplenomegaly present Extremity: COMMON NORMALS: normal to inspection, capillary refill normal, no clubbing, cyanosis or edema, no calf tenderness and no pedal edema Neuro: SENSORIUM/ORIENTATION: Yes oriented to person, Yes oriented to place and Yes oriented to time Skin: COMMON NORMALS: no rashes or lesions noted GENERAL SKIN EXAM: no rashes or lesions noted Course Vital Signs: Vital signs: Vital Signs Temperature 98.0 F 09/07/21 09:28 Pulse Rate 99 09/07/21 10:04 Respiratory Rate 16 09/07/21 10:01 Blood Pressure 111/66 09/07/21 09:28 Pulse Oximetry 94 09/07/21 10:01 MDM - SOB/Dyspnea Medical Decision Making Question of left base pneumonia. Given prescription for Levaquin started on albuterol Medrol Dosepak return if has further problems. Medical Records I reviewed the patient's medical records. Lab Data I reviewed the patient's lab results. : 09/07/21 08:45 09/07/21 08:45 Labs/Radiology: Radiology Impressions Chest X-Ray 09/07/21 08:39 IMPRESSION: Left basilar pneumonia. Laboratory Results WBC 11.0 10^3/uL (4.0-10.0) H 09/07/21 08:45 RBC 4.31 10^6/uL (4.1-5.3) 09/07/21 08:45 Hgb 12.3 g/dL (11.7-16.6) 09/07/21 08:45 Hct 39.2 % (42.0-52.0) L 09/07/21 08:45 MCV 91.0 fl (80-94) 09/07/21 08:45 MCH 28.5 pg (28.0-34.0) 09/07/21 08:45 MCHC 31.4 g/dL (30.0-36.0) 09/07/21 08:45 RDW 13.1 % (12.1-15.1) 09/07/21 08:45 Plt Count 169 10^3/cmm (130-400) 09/07/21 08:45 MPV 10.2 fL (7.4-10.4) 09/07/21 08:45 Neut % (Auto) 75.3 % 09/07/21 08:45 Lymph % (Auto) 14.7 % 09/07/21 08:45 [place] % (Auto) 9.0 % 09/07/21 08:45 Eos % (Auto) 0.2 % 09/07/21 08:45 Baso % (Auto) 0.5 % 09/07/21 08:45 Neut # (Auto) 8.24 10^3/uL (1.8-7.7) H 09/07/21 08:45 Lymph # (Auto) 1.6 10^3/uL (0.8-4.8) 09/07/21 08:45 [place] # (Auto) 1.0 10^3/uL (0.2-0.9) H 09/07/21 08:45 Eos # (Auto) 0.0 10^3/uL (0.0-0.8) 09/07/21 08:45 Baso # (Auto) 0.1 10^3/uL (0.0-0.1) 09/07/21 08:45 Nucleated RBC % (auto) 0 % 09/07/21 08:45 Nucleated RBCs # 0.0 /100WBC 09/07/21 08:45 Specimen Type Arterial 09/07/21 09:04 Sample Site Radial, left 09/07/21 09:04 ABG pH 7.40 (7.35-7.45) 09/07/21 09:04 ABG pCO2 67.9 mmHg (35-45) H* 09/07/21 09:04 ABG pO2 102.0 mmHg (80.0-100.0) H 09/07/21 09:04 ABG HCO3 42.0 mmol/L (22-26) H 09/07/21 09:04 ABG O2 Saturation 98.7 09/07/21 09:04 ABG Base Excess 14.3 mmol/L (-2.0-2.0) H 09/07/21 09:04 [place] Test Pos 09/07/21 09:04 A-a O2 Gradient Not Reportable 09/07/21 09:04 Hematocrit 36.7 % (42-52) L 09/07/21 09:04 Hgb O2 Saturation 98.8 % (95-100) 09/07/21 09:04 Carboxyhemoglobin 1.7 %THgb (0.4-20.1) 09/07/21 09:04 Methemoglobin < 0.0 % (0.4-1.5) L 09/07/21 09:04 Total Hemoglobin 12.0 g/dL (14-18) L 09/07/21 09:04 Sodium 136.0 mmol/L (131-143) 09/07/21 09:04 Potassium 3.7 mmol/L (3.5-5.0) 09/07/21 09:04 Glucose 121.0 mg/dL (70-115) H 09/07/21 09:04 Ionized Calcium 1.2 mmol/L (1.1-1.4) 09/07/21 09:04 O2 Delivery Device Nc 09/07/21 09:04 O2 Liters/Min 5.0 % 09/07/21 09:04 Executive Vice President ID Cak 09/07/21 09:04 Sodium 134 mmol/L (136-145) L 09/07/21 08:45 Potassium 3.7 mmol/L (3.5-5.1) 09/07/21 08:45 Chloride 90 mmol/L (98-107) L 09/07/21 08:45 Carbon Dioxide 38 mmol/L (22-29) H 09/07/21 08:45 Anion Gap 9.7 (5-19) 09/07/21 08:45 BUN 17 mg/dL (8-23) 09/07/21 08:45 Creatinine 0.6 mg/dL (0.7-1.2) L 09/07/21 08:45 GFR Calculation 133.6 mL/min (90-130) H 09/07/21 08:45 Glucose 126 mg/dL (65-115) H 09/07/21 08:45 Calculated Osmolality 281 mOsm/kg (285-295) L 09/07/21 08:45 Calcium 9.2 mg/dL (8.5-10.5) 09/07/21 08:45 Total Bilirubin 0.5 mg/dL (0.15-1.2) 09/07/21 08:45 AST 26 U/L (0-40) 09/07/21 08:45 ALT 8 U/L (0-41) 09/07/21 08:45 Alkaline Phosphatase 103 IU/L (40-130) 09/07/21 08:45 Total Protein 6.9 g/dL (6.6-8.7) 09/07/21 08:45 Albumin 3.8 g/dL (3.5-5.2) 09/07/21 08:45 Globulin 3.1 g/dL (1.3-4.6) 09/07/21 08:45 Discharge Plan Discharge Patient Disposition: Home Clinical Impression: Pneumonia, Chronic respiratory failure with hypoxia and hypercapnia, Acute exacerbation of chronic obstructive airways disease Condition: Stable Prescriptions: New Medrol (Yakov) 4 mg tablets,dose pack See Rx Instructions .ROUTE .COMPLEX Qty: 21 0RF Rx Instructions: orally per package directions albuterol sulfate 90 mcg/actuation HFA aerosol inhaler 2 inh INHALATION Q4H PRN (Reason: shortness of breath or wheezing) Qty: 18 0RF No Action atorvastatin 40 mg tablet 40 mg PO DAILY Qty: 90 3RF morphine 30 mg tablet 30 mg PO TID PRN (Reason: Pain) 30 Days Qty: 90 0RF albuterol sulfate 2.5 mg /3 mL (0.083 %) solution for nebulization 2.5 mg INHALATION QID PRN (Reason: Shortness Of Breath) 0RF butenafine [Lotrimin Ultra] 1 % cream 1 applic TOPICAL BID PRN (Reason: Allergic Reaction) 0RF epinephrine 0.3 mg/0.3 mL auto-injector 0.3 mg IM ONCE PRN (Reason: Allergic Reaction) 0RF Restasis MultiDose 0.05 % drops 1 drop ophthalmic (eye) Q12H 0RF mupirocin 2 % ointment 1 applic TOPICAL BID Qty: 22 2RF levocetirizine [Xyzal] 5 mg tablet 5 mg PO DAILY 0RF budesonide-formoterol [Symbicort] 160-4.5 mcg/actuation HFA aerosol inhaler 2 puff inhalation BID 0RF Spiriva with HandiHaler 18 mcg capsule, w/inhalation device 1 cap inhalation DAILY 30 Days Qty: 60 3RF Rx Instructions: puncture 1 cap using device; one dose = 2 inhalations mirtazapine [Remeron] 15 mg tablet 15 mg PO DAILY Qty: 7 0RF (DME) walker with seat /wheels See Rx Instructions .Route .MEDSUPPLY Qty: 1 0RF Rx Instructions: [id number] 99 months albuterol sulfate [ProAir HFA] 90 mcg/actuation HFA aerosol inhaler See Rx Instructions .ROUTE .COMPLEX Qty: 8.5 3RF Dose Instruction: INHALE 2 PUFFS INTO LUNGS EVERY 6 HOURS NEEDED FOR SHORTNESS OF BREATH Rx Instructions: INHALE 2 PUFFS INTO LUNGS EVERY 6 HOURS NEEDED FOR SHORTNESS OF BREATH ipratropium-albuterol 0.5 mg-3 mg(2.5 mg base)/3 mL solution for nebulization See Rx Instructions .ROUTE .COMPLEX Qty: 360 3RF Dose Instruction: NEBULIZE 1 VIAL FOUR TIMES DAILY NEEDED FOR WHEEZING Rx Instructions: NEBULIZE 1 VIAL FOUR TIMES DAILY NEEDED FOR WHEEZING losartan 25 mg tablet 25 mg PO DAILY Qty: 90 3RF MediHoney (honey) 80 % gel 1 applic topical BID 30 Days Qty: 44 2RF metoprolol tartrate 25 mg tablet 25 mg PO BID Qty: 60 5RF budesonide [Pulmicort] 0.5 mg/2 mL suspension for nebulization 0.5 mg INHALATION BID 90 Days Qty: 360 3RF Lidocaine Viscous 2 % solution See Rx Instructions .ROUTE .COMPLEX Qty: 600 5RF Dose Instruction: TAKE ONE TEASPOONFUL ( 5 ML'S ) BY MOUTH EVERY THREE HOURS NEEDED FOR MOUTH PAIN Rx Instructions: TAKE ONE TEASPOONFUL ( 5 ML'S ) BY MOUTH EVERY THREE HOURS NEEDED FOR MOUTH PAIN citalopram 40 mg tablet 40 mg PO DAILY 30 Days Qty: 30 5RF oxycodone 10 mg tablet 10 mg PO Q6H PRN (Reason: pain) 10 Days Qty: 40 0RF aspirin [Adult Aspirin Regimen] 81 mg tablet,delayed release (DR/EC) 81 mg PO DAILY Qty: 90 1RF spironolactone 25 mg tablet 25 mg PO DAILY Qty: 90 1RF hydrocodone-acetaminophen 5-325 mg tablet 1 tab PO Q6H PRN (Reason: pain) Qty: 14 0RF pantoprazole 40 mg tablet,delayed release (DR/EC) 40 mg PO DAILY 0RF montelukast 10 mg tablet 10 mg PO DAILY 0RF furosemide 20 mg tablet 40 mg PO BID 0RF Magtab 84 mg tablet extended release 84 mg PO DAILY 0RF potassium chloride 20 mEq tablet extended release 40 meq PO BID 0RF nystatin 100,000 unit/mL Suspension 5 ml BUCCAL DAILY 0RF Rx Instructions: SWISH AND SWALLOW ONE TEASPOONFUL ( 5 ML'S ) BY MOUTH FOUR TIMES DAILY celecoxib 100 mg Capsule 100 mg PO BID Qty: 20 0RF morphine 15 mg Tablet 30 mg PO Q8H PRN (Reason: Severe Pain) Qty: 9 0RF azelastine 137 mcg (0.1 %) aerosol,spray 1 - 2 spray INTRANASAL BID 0RF Narcan 4 mg/actuation spray,non-aerosol 4 mg intranasal Q2M PRN (Reason: opioid overdose) Qty: 2 0RF Rx Instructions: spray 1 dose into ONE nostril; alternate nostrils w each dose until help arrives Discharge Orders: Discharge ED (Routine); Ordered 09/07/21 Ordered By: Samir Hassan Referrals: May Knapp FNP-C [Primary Care Provider] - Patient Instructions: Opioid Safety Coding Level of Care Code ED Washer Off for Chg Fwd Exam Detailed
[2021-09-07 09:04] LABS: Basophils # 0.1 10^3/uL (0.0-0.1); Basophils % 0.5 %; Eosinophils % 0.2 %; Hematocrit 39.2 % (42.0-52.0); Hemoglobin 12.3 g/dL (11.7-16.6); Lymphocytes # 1.6 10^3/uL (0.8-4.8); Lymphocytes % 14.7 %; Mean Corpuscular HGB Conc 31.4 g/dL (30.0-36.0); Mean Corpuscular Hemoglobin 28.5 pg (28.0-34.0); Mean Platelet Volume 10.2 fL (7.4-10.4); Neutrophils # 8.24 10^3/uL (1.8-7.7); Neutrophils % 75.3 %; Nucleated Red Blood Cells % 0 %; Platelet Count 169 10^3/cmm (130-400); Red Blood Count 4.31 10^6/uL (4.1-5.3); Red Cell Distribution Width 13.1 % (12.1-15.1)
[2021-09-07 09:15] LABS: Arterial Blood Gas Hematocrit 36.7 % (42-52); Base Excess ABG 14.3 mmol/L (-2.0-2.0); Blood Gas Allen Test Pos; Blood Gas Operator Identificat CAK; Blood Gas Sample Site Radial, left; Blood Gas Sample Type Arterial; Carboxyhemoglobin 1.7 %THgb (0.4-20.1); HGB O2 Sat 98.8 % (95-100); Ionized Calcium Level - ABG 1.2 mmol/L (1.1-1.4); Methemoglobin < 0.0 % (0.4-1.5); Oxygen Device NC; Oxygen Saturation ABG 98.7; Potassium Level - ABG 3.7 mmol/L (3.5-5.0)
[2021-09-07 09:16] LABS: ABG PCO2 67.9 mmHg (35-45)
[2021-09-07 09:28] VITALS: BP 111/66; PULSE 90; RESP 22; TEMP 36.7; O2SAT 98
[2021-09-07 09:35] LABS: Alanine Aminotransferase 8 U/L (0-41); Albumin Level 3.8 g/dL (3.5-5.2); Alkaline Phosphatase 103 IU/L (40-130); Anion Gap 9.7 (5-19); Aspartate Amino Transferase 26 U/L (0-40); Blood Urea Nitrogen 17 mg/dL (8-23); Calcium 9.2 mg/dL (8.5-10.5); Carbon Dioxide 38 mmol/L (22-29); Chloride 90 mmol/L (98-107); Globulin 3.1 g/dL (1.3-4.6); Glomerular Filtration Rate 133.6 mL/min (90-130); Glucose 126 mg/dL (65-115); Osmolality Calculated 281 mOsm/kg (285-295); Potassium 3.7 mmol/L (3.5-5.1); Sodium 134 mmol/L (136-145); Total Bilirubin 0.5 mg/dL (0.15-1.2); Total Protein 6.9 g/dL (6.6-8.7)
--- NOTE | 2021-09-07 09:59 | PC.NURSE ---
Patient request triple antibiotic cream for is buttocks, he reports he has had sores for 1 month and his pcp instructed him to do this, this RN notified provider, provide states he is okay with that.
[2021-09-07] MEDS: ipratropium-albuterol 3 mL Neb INHALATION (10:00)
[2021-09-07 10:01] VITALS: PULSE 102; RESP 16; O2SAT 94
[2021-09-07 10:04] VITALS: PULSE 99
== END 2021-09-07 14:00 | disposition home or self-care (01) ==
PROVIDERS: Emergency Provider Family Medicine; PCP Nurse Practitioner Family
DX: J44.0 Chronic obstructive pulmonary disease with (acute) lower respiratory infection (principal); J18.9 Pneumonia, unspecified organism; J44.1 Chronic obstructive pulmonary disease with (acute) exacerbation; J96.12 Chronic respiratory failure with hypercapnia; J96.11 Chronic respiratory failure with hypoxia; Z99.81 Dependence on supplemental oxygen; Z79.82 Long term (current) use of aspirin; F17.200 Nicotine dependence, unspecified, uncomplicated
CPT/HCPCS: 36415; 36600; 71045; 80051; 80053; 82330; 82805; 85025; 87040; 87070; 87205; 93005; 94640; 96374; 99283; J2930

== ENCOUNTER 2021-09-17 14:51 | Inpatient (IN) | payer MEDICAID, SELFPAY ==
[2021-09-17] VITALS (9 sets, daily range): BP systolic 109–122; BP diastolic 57–76; PULSE 72–97; RESP 20–26; TEMP 36.6–36.8; O2SAT 88–96; BMI 26.2; BMI 25.9
--- NOTE | 2021-09-17 14:53 | ECG_ITS ---
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 Measurements Intervals [place] Rate: 74 P: 78 AK: 178 QRS: -30 QRSD: 96 T: 24 QT: 390 QTc: 433 Interpretive Statements Supraventricular rhythm. Further interpretation is not possible. Heavy baseline artifact. Defective EKG Electronically Signed On 09-17-2021 22:56:54 CDT by Lilly Rowell M.D. [email or web address]
--- NOTE | 2021-09-17 14:53 | XR_ITS ---
WS: [id number] XR chest 1V portable [id number] REASON FOR EXAM: dyspnea FINDINGS: There is cardiomegaly. Compared to the previous examination of 09/07/2021 the reticular groundglass opacities in the left low er lung have undergone significant resolution. There are now appears to be reticular and groundglass opacity in the periphery of the right lower and right mid lung field, however there is significant rotation of the chest on this examination and thi s appearance may be created by overlying soft tissue No other significant interval change is noted. XR/XR chest 1V portable [id number] IMPRESSION: Questionable new abnormality in the right lung with malpositioning of the chest x-ray. Repeat examination is recommended.
--- NOTE | 2021-09-17 14:58 | W.ED.GENADLT ---
HPI - General Adult General: Chief complaint: Shortness of Breath/Dyspnea Stated complaint: INCREASED SOB Time Seen by Provider: 09/17/21 14:53 History of Present Illness: Patient is a 71-year-old male with a history of emphysema/COPD who presents the emergency room for cough concerns for worsening dyspnea. Patient tells me for the last 3 days, he has had acute worsening of shortness of breath. He reports sputum production and cough since then it is unrelieved with breathing treatments at home Patient denies any abdominal complaints, nausea/vomiting, fever/chills, complaints, melena or hematochezia. Onset:3 days ago Duration:3 days Location:home Severity:moderate Associated symptoms: Reports chest pain and dyspnea; Deny nausea, rash, palpitations or vomiting Review of Systems Const: Denies: fever(s) or chills Eyes: Denies: change in vision ENMT: Denies: mouth pain Card: Reports: chest pain; Denies: palpitations Resp: Reports: dyspnea; Denies: non-productive cough GI: Denies: abdominal pain, nausea, vomiting or diarrhea : Denies: dysuria Musc: Denies: extremity pain Skin/Breast: Denies: rash or new lesions Neuro: Denies: weakness in extremities Psych: Reports: other (Normal mood) Johan/Lymph: Denies: easy bruising PFSH ED PFSH: Medical History Acquired bilateral hammer toes Acute diverticulitis Acute on chronic respiratory failure with hypoxia and hypercapnia Acute on chronic systolic (congestive) heart failure Bee sting allergy Bilateral bunions Bulging lumbar disc Cardiomyopathy Chronic bilateral low back pain Chronic erythematous candidosis Chronic low back pain Chronic nausea Chronic respiratory failure with hypoxia Compression fracture of thoracic vertebra COPD (chronic obstructive pulmonary disease) Cor pulmonale, chronic Degenerative disc disease DVT prophylaxis Dysphagia, unspecified Emphysema, unspecified GERD (gastroesophageal reflux disease) History of colon cancer Hypersomnia Impaired mobility and activities of daily living Lesion of true vocal cord Lower extremity edema Mixed hyperlipidemia Nicotine addiction Nicotine dependence, cigarettes, uncomplicated Nocturia Onychomycosis MANISH (obstructive sleep apnea) Other specified joint disorders, right shoulder PAD (peripheral artery disease) Polyneuropathy, unspecified Respiratory failure Sebaceous cyst of scrotum Segmental and somatic dysfunction of rib cage Blanco-Isaac syndrome Vasomotor rhinitis Venous reflux Surgical History H/O foot surgery H/O hernia repair History of back surgery History of cholecystectomy History of esophagogastroduodenoscopy (EGD) History of partial colectomy Family History Mother , Age 73 Hodgkin disease Cancer Father , Age 67 Stroke Social History Smoking and tobacco status: current every day smoker Quit status (tobacco): considering quitting Second hand smoke exposure: Yes Smoking risk assessment/counseling performed?: Yes Alcohol intake: never Desire information about alcohol rehabilitation?: No Counseling given: No Desire information about substance/drug rehabilitation?: No Counseling given: Yes Lives independently: Yes Household members: spouse Marital status: Highest education level completed: Some College, No Degree service: No Current occupational status: retired History of recent travel: No Current gender identity: Male Physical Exam Const: COMMON NORMALS: alert HENMT: COMMON NORMALS: atraumatic HEAD & SCALP: atraumatic MOUTH: moist mucous membranes not abnormal Eye: COMMON NORMALS: EOMs intact bilaterally and conjunctivae normal CONJUNCTIVA: Yes conjunctivae normal Neck/C-Spine: COMMON NORMALS: full ROM and supple Resp: COMMON NORMALS: normal respiratory effort OTHER: +Mild increased work of breathing, wheezes b/l Cardio: COMMON NORMALS: regular rate RATE: regular rate GI: COMMON NORMALS: Soft to palpation and non-tender PALPATION: Yes Soft to palpation Extremity: COMMON NORMALS: full ROM Neuro: SENSORIUM/ORIENTATION: Yes alert MOTOR EXAM: No Abnormal motor strength present and Other motor observations present (no focal motor deficits) Psych: COMMON NORMALS: speech normal SPEECH: Yes normal speech MOOD & AFFECT: Yes euthymic mood Course Vital Signs: Vital signs: Vital Signs Temperature 98 F 09/20/21 16:55 Pulse Rate 60 09/20/21 16:55 Respiratory Rate 20 H 09/20/21 16:55 Blood Pressure 106/65 09/20/21 16:55 Pulse Oximetry 90 09/20/21 16:55 [facility] - General Adult Medical Decision Making 71-year-old male with history of emphysema/COPD presenting to the emergency room with increased work of breathing, cough, and dyspnea x 3 days. Physical exam, patient is noted to have mild increased work of breathing with wheezing bilaterally. Findings are most consistent with COPD exacerbation. X-ray chest not show any signs of pneumonia Patient received DuoNeb treatment x3, Solu-Medrol with minimal improvement in symptoms. Patient is noted to have a white count of 14.3. proBNP resting much elevated compared to prior. Patient having CO2 retention with PCO2 of 62 on blood gas. X-ray showed minimal infiltrate vs atelectasis. I do not suspect patient having acute pneumonia and we will not treat with antibiotics at this time. Patient will need further breathing treatment for further management of COPD exacerbation Disposition: admission Lab Data : 09/20/21 05:15 09/20/21 05:15 Radiology Impressions Chest X-Ray 09/18/21 07:00 IMPRESSION: There appear to be progression of the lower lung zone opacities however in part this may be due to poor inspiration and atelectasis. Laboratory Results WBC 13.9 10^3/uL (4.0-10.0) H 09/17/21 15:40 RBC 4.32 10^6/uL (4.1-5.3) 09/17/21 15:40 Hgb 12.4 g/dL (11.7-16.6) 09/17/21 15:40 Hct 41.7 % (42.0-52.0) L 09/17/21 15:40 MCV 96.5 fl (80-94) H 09/17/21 15:40 MCH 28.7 pg (28.0-34.0) 09/17/21 15:40 MCHC 29.7 g/dL (30.0-36.0) L 09/17/21 15:40 RDW 13.3 % (12.1-15.1) 09/17/21 15:40 Plt Count 211 10^3/cmm (130-400) 09/17/21 15:40 MPV 10.0 fL (7.4-10.4) 09/17/21 15:40 Neut % (Auto) 84.5 % 09/17/21 15:40 Lymph % (Auto) 6.5 % 09/17/21 15:40 [place] % (Auto) 7.8 % 09/17/21 15:40 Eos % (Auto) 0.1 % 09/17/21 15:40 Baso % (Auto) 0.4 % 09/17/21 15:40 Neut # (Auto) 11.78 10^3/uL (1.8-7.7) H 09/17/21 15:40 Lymph # (Auto) 0.9 10^3/uL (0.8-4.8) 09/17/21 15:40 [place] # (Auto) 1.1 10^3/uL (0.2-0.9) H 09/17/21 15:40 Eos # (Auto) 0.0 10^3/uL (0.0-0.8) 09/17/21 15:40 Baso # (Auto) 0.1 10^3/uL (0.0-0.1) 09/17/21 15:40 Nucleated RBC % (auto) 0 % 09/17/21 15:40 Nucleated RBCs # 0.0 /100WBC 09/17/21 15:40 Sodium 143 mmol/L (136-145) 09/17/21 15:40 Potassium 4.4 mmol/L (3.5-5.1) 09/17/21 15:40 Chloride 95 mmol/L (98-107) L 09/17/21 15:40 Carbon Dioxide 41 mmol/L (22-29) H 09/17/21 15:40 Anion Gap 11.4 (5-19) 09/17/21 15:40 BUN 20 mg/dL (8-23) 09/17/21 15:40 Creatinine 0.6 mg/dL (0.7-1.2) L 09/17/21 15:40 GFR Calculation 133.6 mL/min (90-130) H 09/17/21 15:40 Glucose 82 mg/dL (65-115) 09/17/21 15:40 Calculated Osmolality 298 mOsm/kg (285-295) H 09/17/21 15:40 Calcium 8.8 mg/dL (8.5-10.5) 09/17/21 15:40 Troponin T Baseline 66 ng/L (0-15) H 09/17/21 15:40 NT-Pro-B Natriuret Pep 4402 pg/mL (0-125) H 09/17/21 15:40 Procalcitonin 0.04 ng/mL (0-0.5) 09/17/21 15:40 Nasal Influ A H1 2009 PCR Not detected (NOT DETECT) 09/17/21 15:55 Coronavirus 229E (PCR) Not detected (NOT DETECT) 09/17/21 15:55 Influenza A (H1) PCR Not detected (NOT DETECT) 09/17/21 15:55 Influenza A (H3) PCR Not detected (NOT DETECT) 09/17/21 15:55 Influenza Type A (PCR) Not detected (NOT DETECT) 09/17/21 15:55 Influenza Type B (PCR) Not detected (NOT DETECT) 09/17/21 15:55 SARS-CoV-2 (PCR) Not detected (NOT DETECT) 09/17/21 15:55 Imaging Data Other Imaging: Radiologist's impression: [address] [address] XRay Report Signed Patient: Jaime Olivares Unit #: [id number] : 1950 Age/Sex: 71 / M ADM Date: 09/17/21 Loc: ER Room/Bed: Attending Dr: Ordering Provider/Ordering MD: Chino Carrero MD Date of Service: 09/17/21 Procedure(s): XR chest 1V portable [id number] Accession Number(s): [id number] Report Number: [id number] WS: [id number] XR chest 1V portable [id number] REASON FOR EXAM: dyspnea FINDINGS: There is cardiomegaly. Compared to the previous examination of 09/07/2021 the reticular groundglass opacities in the left lower lung have undergone significant resolution. There are now appears to be reticular and groundglass opacity in the periphery of the right lower and right mid lung field, however there is significant rotation of the chest on this examination and this appearance may be created by overlying soft tissue No other significant interval change is noted. XR/XR chest 1V portable [id number] IMPRESSION: Questionable new abnormality in the right lung with malpositioning of the chest x-ray. Repeat examination is recommended. ? ? Dictated By: Jaylon Patterson Jr, MD Signed By: Jaylon Patterson Jr, MD Signed Date/Time: 09/17/21 1542 DD/ [address] [address] XRay Report Signed Patient: Jaime Olivares Unit #: [id number] : 1950 Age/Sex: 71 / M ADM Date: 09/17/21 Loc: ER Room/Bed: Attending Dr: Ordering Provider/Ordering MD: Chino Carrero MD Date of Service: 09/17/21 Procedure(s): XR chest 2V* [id number] Accession Number(s): [id number] Report Number: [id number] PROCEDURE INFORMATION: Exam: XR Chest Exam date and time: 09/17/2021 5:06 PM Age: 71 years old Clinical indication: Shortness of breath; Additional info: Eval for right lower lobe pathologies per radiologist TECHNIQUE: Imaging protocol: XR of the chest. Views: 2 views. COMPARISON: CR XR chest 1V portable [id number] 09/17/2021 3:09 PM FINDINGS: Lungs: Bibasilar atelectasis versus minimal infiltrate. Pleural spaces: Unremarkable. No pleural effusion. No pneumothorax. Heart/Mediastinum: Unremarkable. No cardiomegaly. Bones/joints:? Multiple chronic right posterior rib fractures. XR/XR chest 2V* [id number] IMPRESSION: Bibasilar atelectasis versus minimal infiltrate. ? Dictated By: Duran Berger MD Signed By: Duran Berger MD Signed Date/Time: 09/17/21 1736 DD/ 1706 Discharge Plan Discharge Patient Disposition: Admitted As Inpatient Admit Provider: Evan George Clinical Impression: COPD exacerbation, Cough, CHF exacerbation, Leg swelling Condition: Stable Discharge Diet: Regular Discharge Activity: Resume usual activity Coding Level of Care Code ED Sexual Assault Nurse for Chg Fwd Exam Comprehensive
--- NOTE | 2021-09-17 15:51 | PC.PHAR ---
pt unable to verify meds-patients Kelly was able to verify medications over the phone.
[2021-09-17 15:57] LABS: Basophils # 0.1 10^3/uL (0.0-0.1); Basophils % 0.4 %; Eosinophils % 0.1 %; Hematocrit 41.7 % (42.0-52.0); Hemoglobin 12.4 g/dL (11.7-16.6); Lymphocytes # 0.9 10^3/uL (0.8-4.8); Lymphocytes % 6.5 %; Mean Corpuscular HGB Conc 29.7 g/dL (30.0-36.0); Mean Corpuscular Hemoglobin 28.7 pg (28.0-34.0); Mean Corpuscular Volume 96.5 fl (80-94); Monocytes # 1.1 10^3/uL (0.2-0.9); Monocytes % 7.8 %; Neutrophils # 11.78 10^3/uL (1.8-7.7); Neutrophils % 84.5 %; Nucleated Red Blood Cells % 0 %; Platelet Count 211 10^3/cmm (130-400); Red Blood Count 4.32 10^6/uL (4.1-5.3); Red Cell Distribution Width 13.3 % (12.1-15.1); White Blood Count 13.9 10^3/uL (4.0-10.0)
--- NOTE | 2021-09-17 16:14 | XRR_ITS ---
PROCEDURE INFORMATION: Exam: XR Chest Exam date and time: 09/17/2021 5:06 PM Age: 71 years old Clinical indication: Shortness of breath; Additional info: Eval for right lower lobe pathologies per radiologist TECHNIQUE: Imaging protocol: XR of the chest. Views: 2 views. COMPARISON: CR XR chest 1V portable [id number] 09/17/2021 3:09 PM FINDINGS: Lungs: Bibasilar atelectasis versus minimal infiltrate. Pleural spaces: Unremarkable. No pleural effusion. No pneumothorax. Heart/Mediastinum: Unremarkable. No cardiomegaly. Bones/joints: Multiple chronic right posterior rib fractures. XR/XR chest 2V* [id number] IMPRESSION: Bibasilar atelectasis versus minimal infiltrate.
[2021-09-17 16:30] LABS: Troponin(5th) Baseline 66 ng/L (0-15)
[2021-09-17 16:38] LABS: Blood Urea Nitrogen 20 mg/dL (8-23); Calcium 8.8 mg/dL (8.5-10.5); Chloride 95 mmol/L (98-107); Glomerular Filtration Rate 133.6 mL/min (90-130); Glucose 82 mg/dL (65-115); NT Pro B Type Natriuretic Pept 4402 pg/mL (0-125); Osmolality Calculated 298 mOsm/kg (285-295); Sodium 143 mmol/L (136-145)
[2021-09-17 16:46] LABS: Anion Gap 11.4 (5-19); Carbon Dioxide 41 mmol/L (22-29); Potassium 4.4 mmol/L (3.5-5.1)
--- NOTE | 2021-09-17 16:47 | PC.NURSE ---
Notified Dr. Carrero of patient's critical co2 value of 41. blood gas ordered.
--- NOTE | 2021-09-17 16:53 | ECG_ITS ---
[facility] Test Date: 2021-09-17 Pat Name: Jaime Olivares Department: Room: Gender: Male Bright Cutter: : 1950 Requested By: Chino Carrero Order Number: [id number] Reading MD: Lilly Rowell M.D. Measurements Intervals [place] Rate: 86 P: 64 [place]: 162 QRS: -53 QRSD: 100 T: 45 QT: 363 QTc: 436 Interpretive Statements SINUS RHYTHM INFERIOR MYOCARDIAL INFARCTION , PROBABLY OLD [40+ ms Q WAVE AND/OR ST/T ABNORMALITY IN II/aVF] Compared to ECG 09/07/2021 08:36:57 Myocardial infarct finding now present Sinus tachycardia no longer present Left anterior fascicular block no longer present Electronically Signed On 09-17-2021 23:00:56 CDT by Lilly Rowell M.D. [email or web address].[email or web address]/store/[id number]
[2021-09-17 17:50] LABS: ABG PH Result 7.45 (7.35-7.45); Arterial Blood Gas Hematocrit 38.6 % (42-52); Base Excess ABG 15.9 mmol/L (-2.0-2.0); Blood Gas Allen Test Pos; Blood Gas Sample Type Arterial; HCO3 ABG 42.9 mmol/L (22-26); PO2 ABG 51.7 mmHg (80.0-100.0)
[2021-09-17 17:51] LABS: Blood Gas Operator Identificat ED; Blood Gas Sample Site Radial, left; Oxygen Device NC
[2021-09-17 17:52] LABS: ABG PCO2 62.1 mmHg (35-45)
[2021-09-17 17:57] LABS: Adenovirus Not Detected (NOT DETECT); Chlamydia Pneumoniae Not Detected (NOT DETECT); Coronavirus 229E,HKU1,NL63,OC4 Not Detected (NOT DETECT); Human Metapneumovirus Not Detected (NOT DETECT); Human Rhinovirus/Enterovirus Not Detected (NOT DETECT); Influenza A Not Detected (NOT DETECT); Influenza A H1 Not Detected (NOT DETECT); Influenza A H1-2009 Not Detected (NOT DETECT); Influenza A H3 Not Detected (NOT DETECT); Influenza B Not Detected (NOT DETECT); Mycoplasma Pneumoniae Not Detected (NOT DETECT); Parainfluenza Virus Type 1 Not Detected (NOT DETECT); Parainfluenza Virus Type 2 Not Detected (NOT DETECT); Parainfluenza Virus Type 3 Not Detected (NOT DETECT); Parainfluenza Virus Type 4 Not Detected (NOT DETECT); Respiratory Syncytial Virus A Not Detected (NOT DETECT); Respiratory Syncytial Virus B Not Detected (NOT DETECT); SARS-COV-2 Not Detected (NOT DETECT)
--- NOTE | 2021-09-17 17:57 | PC.NURSE ---
Patient not leaving monitoring devices on at this time.
--- NOTE | 2021-09-17 18:21 | P.HP_ITS ---
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 Patient tells me that he continues to smoke, he had 2 cigarettes last week, he is progressively feeling increasingly short of breath, increasingly wheezy, productive cough, yellow- green sputum, he tells me that he is adamant that he uses his AVAPS, denies any chest pain, no lightheaded, dizziness, no nondistorted COVID-19, no known exposure to influenza, no d fevers, no sick contacts Review of Systems Const: Denies: fever(s) Eyes: Denies: change in vision ENMT: Denies: nasal congestion Card: Reports: edema and swelling of feet/ankles; Denies: chest pain or palpitations Resp: Reports: dyspnea, productive cough and wheezing GI: Denies: abdominal pain, nausea or vomiting : Denies: difficulty urinating Musc: Denies: neck pain Skin/Breast: Denies: rash Neuro: Denies: headache(s) Psych: Denies: anxiety Endo: Denies: polyuria or polydipsia Medications/Allergies Home Medications Medication Instructions Recorded Confirmed Last Taken Type albuterol sulfate 2.5 mg INHALATION QID PRN 06/21/19 09/17/21 09/16/21 History butenafine 1 % topical cream 1 applic TOPICAL BID PRN 06/21/19 09/17/21 08/23/19 History (Lotrimin Ultra) cyclosporine 0.05 % eye drops 1 drop OPHTHALMIC (EYE) Q12H 06/21/19 09/17/21 09/16/21 History (Restasis MultiDose) mupirocin 2 % topical ointment 1 applic TOPICAL BID #22 gm 01/18/20 09/17/21 09/16/21 Rx walker with seat /wheels #1 ea 01/20/20 09/17/21 Unknown Rx albuterol sulfate 90 mcg/actuation See Rx Instructions .ROUTE 03/26/20 09/17/21 09/16/21 Rx aerosol inhaler (ProAir HFA) .COMPLEX #8.5 gm azelastine 137 mcg (0.1 %) nasal 1 - 2 spray INTRANASAL BID 07/05/20 09/17/21 09/16/21 History spray aerosol naloxone 4 mg/actuation nasal 4 mg INTRANASAL Q2M PRN #2 ea 07/24/20 09/17/21 Unknown Rx spray (Narcan) ipratropium 0.5 mg-albuterol 3 mg See Rx Instructions .ROUTE 08/02/20 09/17/21 09/16/21 Rx (2.5 mg base)/3 mL nebulization .COMPLEX #360 ml soln levocetirizine 5 mg tablet (Xyzal) 5 mg PO DAILY 10/03/20 09/17/21 09/16/21 History losartan 25 mg tablet 25 mg PO DAILY #90 tab 10/05/20 09/17/21 09/16/21 Rx metoprolol tartrate 25 mg tablet 25 mg PO BID #60 tab 04/29/21 09/17/21 09/16/21 Rx atorvastatin 40 mg tablet 40 mg PO DAILY #90 tab 05/30/21 09/17/21 09/16/21 Rx budesonide 0.5 mg/2 mL suspension 0.5 mg (2 mL) INHALATION BID 90 06/28/21 09/17/21 09/16/21 Rx for nebulization (Pulmicort) Days #360 ml budesonide-formoterol HFA 160 2 puff INHALATION BID 07/01/21 09/17/21 09/16/21 History mcg-4.5 mcg/actuation aerosol inhaler (Symbicort) lidocaine HCl 2 % mucosal solution See Rx Instructions .ROUTE 07/01/21 09/17/21 09/16/21 Rx (Lidocaine Viscous) .COMPLEX #600 ml tiotropium bromide 18 mcg capsule 1 cap INHALATION DAILY 30 Days #60 07/01/21 09/17/21 09/16/21 Rx with inhalation device (Spiriva inh with HandiHaler) citalopram 40 mg tablet 40 mg PO DAILY 30 Days #30 tab 07/24/21 09/17/21 09/16/21 Rx furosemide 20 mg tablet 40 mg PO BID 08/11/21 09/17/21 09/16/21 History magnesium L-lactate 84 mg 84 mg PO DAILY 08/11/21 09/17/21 09/16/21 History tablet,extended release (Magtab) nystatin 100,000 unit/mL oral 5 ml BUCCAL DAILY 08/11/21 09/17/21 09/16/21 History suspension pantoprazole 40 mg tablet,delayed 40 mg PO DAILY 08/11/21 09/17/21 09/16/21 History release potassium chloride 20 mEq 40 meq PO BID 08/11/21 09/17/21 09/16/21 History tablet,extended release aspirin 81 mg tablet,delayed 81 mg PO DAILY #90 tab 08/30/21 09/17/21 09/16/21 Rx release (Adult Aspirin Regimen) spironolactone 25 mg tablet 25 mg PO DAILY #90 tab 08/30/21 09/17/21 09/16/21 Rx albuterol sulfate 90 mcg/actuation 2 inh INHALATION Q4H PRN #18 gm 09/07/21 09/17/21 Unknown Rx aerosol inhaler azithromycin 500 mg tablet 500 mg PO EVERY OTHER DAY 09/17/21 09/17/21 Unknown History doxycycline hyclate 100 mg capsule 100 mg PO BID 09/17/21 09/17/21 09/16/21 History morphine 15 mg immediate release 30 mg PO QID PRN 09/17/21 09/17/21 09/16/21 History tablet prednisone 5 mg tablet 5 mg PO DAILY 09/17/21 09/17/21 09/16/21 History Allergies Allergy/AdvReac Type Severity Reaction Status Date / Time levofloxacin Allergy Severe ALGY-Difficulty Verified 09/17/21 15:35 Breathing methadone Allergy Severe ALGY-Swell Verified 09/17/21 15:35 Lip/Tongue/Throat bee venom protein (honey bee) Allergy ALGY-Anaphy Verified 09/17/21 15:35 laxis Penicillins Allergy Unknown Verified 09/17/21 15:35 fentanyl AdvReac ADR-Shakine Verified 09/17/21 15:35 ss gabapentin [From Neurontin] AdvReac Unknown Verified 09/17/21 15:35 PFSH Acute PFSH: Medical History Acquired bilateral hammer toes Acute diverticulitis Acute on chronic respiratory failure with hypoxia and hypercapnia Acute on chronic systolic (congestive) heart failure Bee sting allergy Bilateral bunions Bulging lumbar disc Cardiomyopathy Chronic bilateral low back pain Chronic erythematous candidosis Chronic low back pain Chronic nausea Chronic respiratory failure with hypoxia Compression fracture of thoracic vertebra COPD (chronic obstructive pulmonary disease) Cor pulmonale, chronic Degenerative disc disease DVT prophylaxis Dysphagia, unspecified Emphysema, unspecified GERD (gastroesophageal reflux disease) History of colon cancer Hypersomnia Impaired mobility and activities of daily living Lesion of true vocal cord Lower extremity edema Mixed hyperlipidemia Nicotine addiction Nicotine dependence, cigarettes, uncomplicated Nocturia Onychomycosis AMNISH (obstructive sleep apnea) Other specified joint disorders, right shoulder PAD (peripheral artery disease) Polyneuropathy, unspecified Respiratory failure Sebaceous cyst of scrotum Segmental and somatic dysfunction of rib cage Blanco-Isaac syndrome Vasomotor rhinitis Venous reflux Surgical History H/O foot surgery H/O hernia repair History of back surgery History of cholecystectomy History of esophagogastroduodenoscopy (EGD) History of partial colectomy Family History Mother , Age 73 Hodgkin disease Cancer Father , Age 67 Stroke Social History Smoking and tobacco status: current every day smoker Quit status (tobacco): considering quitting Second hand smoke exposure: Yes Smoking risk assessment/counseling performed?: Yes Alcohol intake: never Desire information about alcohol rehabilitation?: No Counseling given: No Desire information about substance/drug rehabilitation?: No Counseling given: Yes Lives independently: Yes Household members: spouse Marital status: Highest education level completed: Some College, No Degree service: No Current occupational status: retired History of recent travel: No Current gender identity: Male Vitals/I&O/Wt Last Vital Signs Temp 98.2 F 09/17/21 14:55 Pulse 89 09/17/21 15:20 Resp 20 H 09/17/21 15:17 BP 122/76 09/17/21 14:55 Pulse Ox 90 09/17/21 15:17 Weight last 48 hrs Weight 95.254 kg Physical Exam Const: COMMON NORMALS: no acute distress and patient oriented x3 Eye: COMMON NORMALS: Equal, round and reactive pupils present and EOMs intact bilaterally Lymph: LYMPHATIC: no lymphadenopathy noted Resp: COMMON NORMALS: normal respiratory effort, No retractions, No use of accessory muscles and clear to auscultation bilaterally AUSCULTATION: diminished lung sounds diffuse Cardio: COMMON NORMALS: regular rate, regular rhythm, S1 normal heart sound present and S2 normal heart sound present RATE: regular rate RHYTHM: regular rhythm HEART SOUNDS: S1 normal heart sound present and S2 normal heart sound present GI: COMMON NORMALS: Normal to inspection, nondistended, normoactive bowel sounds present, Soft to palpation, non-tender and No hepatosplenomegaly present Extremity: COMMON NORMALS: normal to inspection NARRATIVE EXTREMITY EXAM: 1+edema Neuro: COMMON NORMALS: patient oriented x3 Psych: COMMON NORMALS: mental status grossly normal Data : 09/17/21 15:40 09/17/21 15:40 A&P Assessment and plan (1) COPD exacerbation: Status: Acute (2) CHF exacerbation: Status: Acute (3) Pneumonia: Status: Acute (4) Chronic respiratory failure with hypoxia and hypercapnia: Status: Acute (5) PAD (peripheral artery disease): Status: Acute (6) Mixed hyperlipidemia: Status: Acute (7) Acute respiratory failure with hypoxia: Status: Acute Plan Acute hypoxic respiratory failure secondary to COPD exacerbation, systolic CHF exacerbation, pneumonia -With end-stage COPD, cor pulmonale, AVAPS dependent -Admit to general medical floors -Continue BiPAP therapy -Rocephin and azithromycin -Sputum cultures, blood cultures, -Solu-Medrol -Lasix 40 IV twice daily -Monitor respiratory status closely -Full code -Lovenox for DVT prophylaxis Elevated troponins, likely supply demand ischemia from respiratory failure, continue to trend troponins, serial EKGs serial troponins, return for chest pain aspirin, statin Attestations Medical Necessity Statement*: patient requires hospitalization for shortness of breath secondary to acute hypoxic respiratory failure, inpatient greater than 2 midnights Coding Level of Care Code 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
--- NOTE | 2021-09-17 19:06 | PC.NURSE ---
Patient refused bipap.
[2021-09-17 19:07] LABS: Procalcitonin 0.04 ng/mL (0-0.5)
[2021-09-17] MEDS: FUROsemide 10 mg/mL SDV 4mL 40 MG IVP (19:16)
[2021-09-17] MEDS: cefTRIAXone 1,000 MG in sodium chloride 0.9% (plus) 50 ML 100 MG IV (19:16)
[2021-09-17] MEDS: pantoprazole 40 mg SDV IVP (19:16)
--- NOTE | 2021-09-17 19:26 | PC.NURSE ---
Patient pulse ox not picking up on patient, patient moving in bed.
--- NOTE | 2021-09-17 19:29 | PC.NURSE ---
Attempted to call unable to reach her, assisted patient with calling unable to reach her.
--- NOTE | 2021-09-17 19:30 | PC.NURSE ---
Kelly patient's updated per patient request. she can be reached at [phone].
[2021-09-17 19:44] LABS: Lactic Sepsis W/Reflex 2.4 mmol/L (0.5-2.2)
[2021-09-17 20:06] LABS: Troponin 5 2HR 63.54 ng/L (0-15)
[2021-09-17 20:10] LABS: Troponin 5 2HR Delta -2.46 ABS# (0-10)
[2021-09-17 20:19] LABS: Influenza A Not Detected (NOT DETECT); Influenza A H1 Not Detected (NOT DETECT); Influenza A H1-2009 Not Detected (NOT DETECT); Influenza A H3 Not Detected (NOT DETECT); Influenza B Not Detected (NOT DETECT); Results from Genmark
[2021-09-17] MEDS: azithromycin 500 MG in sodium chloride 0.9% 250 ML 250 MG IV (20:40)
[2021-09-17] MEDS: enoxaparin 40 mg/0.4 mL Syringe SUBCUT (20:40)
[2021-09-17 20:49] LABS: Reflex Lactate Order REFLEX LACTIC ORDERD
--- NOTE | 2021-09-17 20:53 | ECG_ITS ---
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 Measurements Intervals [place] Rate: 72 P: 42 AR: 176 QRS: -40 QRSD: 86 T: 35 QT: 383 QTc: 419 Interpretive Statements SINUS RHYTHM WITH PAC'S LEFT AXIS DEVIATION INFERIOR MYOCARDIAL INFARCTION , PROBABLY OLD Compared to ECG 09/17/2021 17:22:20 Myocardial infarct finding now present Supraventricular rhythm no longer present Electronically Signed On 09-19-2021 7:18:25 CDT by Kaila Reyes M.D. [id number]
[2021-09-17] MEDS: ipratropium-albuterol 3 mL Neb INHALATION (21:47)
[2021-09-17] MEDS: budesonide 0.5 mg/2 mL Neb INHALATION (21:48)
[2021-09-17 21:57] LABS: Troponin 5 6HR 72.36 ng/L (0-15); Troponin 5 6HR Delta 6.36 ng/L (0-12)
[2021-09-18] VITALS (16 sets, daily range): BP systolic 94–134; BP diastolic 51–66; PULSE 68–100; RESP 18–22; TEMP 36.6–36.9; O2SAT 89–98
[2021-09-18 03:58] LABS: ABG PH Result 7.39 (7.35-7.45); Base Excess ABG 14.8 mmol/L (-2.0-2.0); Blood Gas Allen Test Pos; Blood Gas Sample Site Radial, left; Blood Gas Sample Type Arterial; HCO3 ABG 42.9 mmol/L (22-26); Oxygen Device NC; PO2 ABG 72.6 mmHg (80.0-100.0)
[2021-09-18 04:02] LABS: ABG PCO2 70.9 mmHg (35-45)
[2021-09-18 05:17] LABS: Basophils % 0.1 %; Hematocrit 37.6 % (42.0-52.0); Hemoglobin 11.3 g/dL (11.7-16.6); Lymphocytes # 0.8 10^3/uL (0.8-4.8); Lymphocytes % 7.4 %; Mean Corpuscular HGB Conc 30.1 g/dL (30.0-36.0); Mean Corpuscular Hemoglobin 28.6 pg (28.0-34.0); Mean Corpuscular Volume 95.2 fl (80-94); Mean Platelet Volume 10.3 fL (7.4-10.4); Monocytes # 0.6 10^3/uL (0.2-0.9); Monocytes % 5.2 %; Neutrophils # 9.14 10^3/uL (1.8-7.7); Neutrophils % 86.7 %; Nucleated Red Blood Cells % 0 %; Platelet Count 198 10^3/cmm (130-400); Red Blood Count 3.95 10^6/uL (4.1-5.3); Red Cell Distribution Width 13.2 % (12.1-15.1); White Blood Count 10.5 10^3/uL (4.0-10.0)
[2021-09-18 05:23] LABS: INR 1.29 (0.8-1.2)
[2021-09-18 05:29] LABS: Alanine Aminotransferase 10 U/L (0-41); Albumin Level 3.7 g/dL (3.5-5.2); Alkaline Phosphatase 80 IU/L (40-130); Anion Gap 12.4 (5-19); Aspartate Amino Transferase 26 U/L (0-40); Blood Urea Nitrogen 23 mg/dL (8-23); C Reactive Protein 12.5 mg/L (0.0-4.9); Calcium 8.5 mg/dL (8.5-10.5); Carbon Dioxide 38 mmol/L (22-29); Chloride 95 mmol/L (98-107); Globulin 2.7 g/dL (1.3-4.6); Glomerular Filtration Rate 133.6 mL/min (90-130); Glucose 123 mg/dL (65-115); Magnesium 1.6 mg/dL (1.7-2.3); Osmolality Calculated 297 mOsm/kg (285-295); Phosphorus 3.3 mg/dL (2.5-4.5); Potassium 4.4 mmol/L (3.5-5.1); Sodium 141 mmol/L (136-145); Total Bilirubin 0.5 mg/dL (0.15-1.2); Total Protein 6.4 g/dL (6.6-8.7)
[2021-09-18 05:31] LABS: Lactate (Lactic Acid level) 1.1 mmol/L (0.5-2.2)
[2021-09-18 05:38] LABS: NT Pro B Type Natriuretic Pept 4494 pg/mL (0-125); Procalcitonin 0.05 ng/mL (0-0.5)
[2021-09-18 05:49] LABS: Creatine Phosphokinase 965 U/L (39-308)
[2021-09-18] MEDS: FUROsemide 10 mg/mL SDV 4mL 40 MG IVP (06:18)
--- NOTE | 2021-09-18 07:00 | XR_ITS ---
WS: [id number] XR chest 1V portable [id number] REASON FOR EXAM: sob FINDINGS: Compared to the examination of the previous day there appears to be interval increasing reticular and groundglass opacities in both lower lungs predominating on the right. No other interval change or new finding is noted. XR/XR chest 1V portable [id number] IMPRESSION: There appear to be progression of the lower lung zone opacities however in part this may be due to poor inspiration and atelectasis.
[2021-09-18] MEDS: ipratropium-albuterol 3 mL Neb INHALATION ×4 (08:35→20:28)
[2021-09-18] MEDS: budesonide 0.5 mg/2 mL Neb INHALATION ×2 (08:35→20:28)
[2021-09-18] MEDS: losartan 50 mg Tablet 25 MG PO (09:55)
[2021-09-18] MEDS: magnesium lactate 84 mg Tablet PO (09:55)
[2021-09-18] MEDS: potassium chloride ER 20 mEq Tablet PO ×2 (09:56→18:52)
[2021-09-18] MEDS: aspirin 81 mg EC Tablet PO (09:56)
[2021-09-18] MEDS: citalopram 20 mg Tablet 40 MG PO (09:57)
[2021-09-18] MEDS: metoprolol tartrate 25 mg Tablet PO (09:57)
[2021-09-18] MEDS: atorvastatin 40 mg Tablet PO (09:57)
[2021-09-18] MEDS: spironolactone 25 mg Tablet PO (09:57)
[2021-09-18] MEDS: magnesium sulfate premix 4 GM/100 ML PREMIX IV (09:58)
--- NOTE | 2021-09-18 10:08 | PC.CHAP ---
Pastoral Care Encounter/Spiritual Assessment Type of Contact [] Declined detective chief visit [] Patient/Family/Request visit [] Outpatient visit [] Follow-up visit [] Physician referral [] Code/Alert [x] Routine visit [] Staff referral [] Actively dying [] Patient sleeping [] Family support [] [] Out of room [] Palliative care [] [x] Receiving care in room [] Pre-surgical visit [] Trauma [] Long length of stay [] ICU visit [] Other: Relational/Emotional Strength [] Patient feels connected with others/family/visitors/staff [] Distress [] Loneliness/isolation [] Abandonment Spirituality of Patient [] Person of Jessica [] Attends Caodaism of their Jessica [] Believes in Prayer [] Reads Bible or Restorationist materials [] There are Spiritual issues to be addressed 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 Interventions [] Prayer [] Active listening [] Non-anxious presence [] Spiritual/emotional support [] Crisis/trauma care [] Spiritual counseling [] Bereavement support [] Provided bereavement packet [] Provided Bible/devotional materials [] Provided toy/stuffed animal, coloring book to patient or family member [] Provided Communion [] Anointing/Cucumber [] Salvation [] Completed spiritual assessment [] Other: Impact on Illness or Injury [] Angry [] Fearful [] Anxious [] Often cries [] Exhaustion [] Unable to work [] Unable to attend mosque [] Unable to walk/stand [] Unable to read [] Unable to drive [] Unable to eat/drink [] Unable to sleep [] Unable to be with family [] Patient intubated [] Other: Summary Time spent with patient
--- NOTE | 2021-09-18 12:38 | P.PN_ITS ---
Subjective Subjective: Patient was seen this morning, he sitting up to the side of the bed, he tells me that he did not use the BiPAP overnight, due to claustrophobia his is bringing his home AVAPS, advised of compliance Vitals/I&O/Wt Last Vital Signs Temp 97.8 F 09/18/21 08:00 Pulse 75 09/18/21 12:00 Resp 18 09/18/21 12:00 BP 134/55 09/18/21 12:00 Pulse Ox 95 09/18/21 12:00 09/17/21 09/18/21 09/18/21 22:59 06:59 14:59 Intake Total 300 / 300 240 / 240 Output Total 125 / 125 Balance 175 / 175 240 / 240 Weight last 48 hrs Weight 94.256 kg Weight 95.254 kg Physical Exam Const: COMMON NORMALS: no acute distress and patient oriented x3 Resp: COMMON NORMALS: normal respiratory effort, No retractions and No use of accessory muscles AUSCULTATION: diminished lung sounds diffuse Cardio: COMMON NORMALS: regular rate, regular rhythm, S1 normal heart sound present and S2 normal heart sound present RATE: regular rate RHYTHM: regular rhythm HEART SOUNDS: S1 normal heart sound present and S2 normal heart sound present GI: COMMON NORMALS: Normal to inspection, nondistended, normoactive bowel sounds present, Soft to palpation and non-tender PALPATION: Yes Soft to palpation Extremity: COMMON NORMALS: no pedal edema Neuro: COMMON NORMALS: patient oriented x3 Psych: COMMON NORMALS: mental status grossly normal Data : 09/18/21 04:36 09/18/21 04:36 Micro: Microbiology 09/17/21 19:01 Blood Culture - Preliminary Blood SPECIMEN COLLECTED 09/17/21 18:59 Blood Culture - Preliminary Blood SPECIMEN COLLECTED A&P Assessment and plan (1) COPD exacerbation: Status: Acute (2) CHF exacerbation: Status: Acute (3) Pneumonia: Status: Acute (4) Chronic respiratory failure with hypoxia and hypercapnia: Status: Acute (5) PAD (peripheral artery disease): Status: Acute (6) Mixed hyperlipidemia: Status: Acute (7) Acute respiratory failure with hypoxia: Status: Acute Plan Acute hypoxic respiratory failure secondary to COPD exacerbation, systolic CHF exacerbation, pneumonia -With end-stage COPD, cor pulmonale, AVAPS dependent -Admit noncompliant with BiPAP therapy overnight, advised morbidity and mortality of his respiratory failure, will bring home AVAPS -ABG PCO2 70.9, PO2 72.6, bicarb 42.9, pH 7.39 on 5 L -Elevated CPK, 965, continue to monitor -Rocephin and azithromycin -Sputum cultures, blood cultures, -Solu-Medrol 40 every 8 hours -Lasix 40 IV twice daily, BNP 4494 -Monitor respiratory status closely -Full code -Lovenox for DVT prophylaxis Elevated troponins, likely supply demand ischemia from respiratory failure, continue to trend troponins, serial EKGs serial troponins, return for chest pain aspirin, statin Attestations Medical Necessity Statement*: Patient requires hospitalization for acute on chronic hypoxic hypercarbic respiratory failure Coding Level of Care Code Acute Metal Template 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
[2021-09-18] MEDS: cefTRIAXone 1,000 MG in sodium chloride 0.9% (plus) 50 ML 100 MG IV (18:47)
--- NOTE | 2021-09-18 18:55 | PC.NURSE ---
Dr. George notified of patient blood pressure and pulse. Hold Lasix and metoprolol. Patient also refused Pantoprazole
[2021-09-18] MEDS: azithromycin 500 MG in sodium chloride 0.9% 250 ML 250 MG IV (20:09)
[2021-09-18] MEDS: enoxaparin 40 mg/0.4 mL Syringe SUBCUT (20:09)
[2021-09-18 23:10] LABS: Bacillus cereus group Not Detected (NOT DETECT); Bacillus subtillis group Not Detected (NOT DETECT); Corynebacterium Not Detected (NOT DETECT); Cutibacterium acnes (P.acnes) Not Detected (NOT DETECT); Enterococcus Not Detected (NOT DETECT); Enterococcus faecalis Not Detected (NOT DETECT); Enterococcus faecium Not Detected (NOT DETECT); Lactobacillus species Not Detected (NOT DETECT); Listeria Not Detected (NOT DETECT); Listeria monocytogenes Not Detected (NOT DETECT); Micrococcus Not Detected (NOT DETECT); Pan Candida Not Detected (NOT DETECT); Pan Gram-Negative Not Detected (NOT DETECT); Staphylococcus epidermidis Detected (NOT DETECT); Staphylococcus lugdunensis Not Detected (NOT DETECT); Staphylococcus species Detected (NOT DETECT); Streptococcus agalactiae Not Detected (NOT DETECT); Streptococcus anginosus group Not Detected (NOT DETECT); Streptococcus pneumoniae Not Detected (NOT DETECT); Streptococcus pyogenes Not Detected (NOT DETECT); Streptococcus species Not Detected (NOT DETECT); mecA Detected (NOT DETECT); mecC Not Detected (NOT DETECT)
[2021-09-19] VITALS (14 sets, daily range): BP systolic 95–123; BP diastolic 51–69; PULSE 57–98; RESP 16–22; TEMP 36.4–37.2; O2SAT 92–97
[2021-09-19 03:28] LABS: ABG PH Result 7.35 (7.35-7.45); Arterial Blood Gas Hematocrit 34.3 % (42-52); Base Excess ABG 15.1 mmol/L (-2.0-2.0); Blood Gas Allen Test Pos; Blood Gas Sample Site Radial, left; Blood Gas Sample Type Arterial; HCO3 ABG 43.8 mmol/L (22-26); Oxygen Device NC; PO2 ABG 84.9 mmHg (80.0-100.0)
[2021-09-19 03:29] LABS: ABG PCO2 78.6 mmHg (35-45)
[2021-09-19 05:06] LABS: Hematocrit 35.7 % (42.0-52.0); Hemoglobin 10.7 g/dL (11.7-16.6); Lymphocytes # 0.5 10^3/uL (0.8-4.8); Lymphocytes % 4.3 %; Mean Corpuscular Hemoglobin 28.5 pg (28.0-34.0); Mean Corpuscular Volume 95.2 fl (80-94); Mean Platelet Volume 10.1 fL (7.4-10.4); Monocytes # 0.4 10^3/uL (0.2-0.9); Monocytes % 3.2 %; Neutrophils # 11.21 10^3/uL (1.8-7.7); Nucleated Red Blood Cells % 0 %; Platelet Count 198 10^3/cmm (130-400); Red Blood Count 3.75 10^6/uL (4.1-5.3); Red Cell Distribution Width 13.2 % (12.1-15.1); White Blood Count 12.2 10^3/uL (4.0-10.0)
[2021-09-19 05:16] LABS: INR 1.19 (0.8-1.2)
[2021-09-19 05:23] LABS: Lactate (Lactic Acid level) 1.4 mmol/L (0.5-2.2)
[2021-09-19 05:26] LABS: Alanine Aminotransferase 9 U/L (0-41); Albumin Level 3.7 g/dL (3.5-5.2); Alkaline Phosphatase 83 IU/L (40-130); Anion Gap 11.3 (5-19); Aspartate Amino Transferase 19 U/L (0-40); Blood Urea Nitrogen 25 mg/dL (8-23); C Reactive Protein 7.1 mg/L (0.0-4.9); Calcium 8.9 mg/dL (8.5-10.5); Carbon Dioxide 38 mmol/L (22-29); Chloride 93 mmol/L (98-107); Globulin 2.6 g/dL (1.3-4.6); Glomerular Filtration Rate 164.9 mL/min (90-130); Glucose 170 mg/dL (65-115); Magnesium 2.4 mg/dL (1.7-2.3); Osmolality Calculated 294 mOsm/kg (285-295); Potassium 4.3 mmol/L (3.5-5.1); Sodium 138 mmol/L (136-145); Total Bilirubin 0.4 mg/dL (0.15-1.2); Total Protein 6.3 g/dL (6.6-8.7)
[2021-09-19 05:33] LABS: NT Pro B Type Natriuretic Pept 1619 pg/mL (0-125); Procalcitonin 0.05 ng/mL (0-0.5)
[2021-09-19 05:51] LABS: Creatine Phosphokinase 406 U/L (39-308)
[2021-09-19] MEDS: FUROsemide 10 mg/mL SDV 4mL 40 MG IVP (06:22)
[2021-09-19] MEDS: atorvastatin 40 mg Tablet PO (08:05)
[2021-09-19] MEDS: metoprolol tartrate 25 mg Tablet PO ×2 (08:05→16:43)
[2021-09-19] MEDS: magnesium lactate 84 mg Tablet PO (08:05)
[2021-09-19] MEDS: potassium chloride ER 20 mEq Tablet PO ×2 (08:05→16:43)
[2021-09-19] MEDS: spironolactone 25 mg Tablet PO (08:05)
[2021-09-19] MEDS: citalopram 20 mg Tablet 40 MG PO (08:05)
[2021-09-19] MEDS: aspirin 81 mg EC Tablet PO (08:05)
[2021-09-19] MEDS: losartan 50 mg Tablet 25 MG PO (08:05)
[2021-09-19] MEDS: ipratropium-albuterol 3 mL Neb INHALATION ×4 (09:00→20:37)
[2021-09-19] MEDS: budesonide 0.5 mg/2 mL Neb INHALATION ×2 (09:00→20:37)
[2021-09-19] MEDS: midodrine 5 mg TABLET 10 MG PO ×2 (10:16→16:43)
--- NOTE | 2021-09-19 14:48 | PM.PN ---
Subjective Subjective: Patient was seen this morning, he sitting up to the side of bed, he has been using the AVAPS machine throughout the night he promises me, he tells me that his breathing has improved, still has a cough, he asked me if his COPD is end-stage, I confirm that he has severe COPD, he tells me what can he do to reverse it, I advised him that he has severe end-stage COPD, the first episode to quit smoking, he told me that he only smoked a few cigarettes last week, he tells me that he really wants to go home tomorrow, to be with his , he knows that he is going to sometime, but he thinks that he has a few months left in him, but he wants to go home and be with his , because he loves his and he wants to be with her, but is worried about his elevated CO2 levels, he tells me that if he is always cannot be like that, I advised that with the severe [place] PD he chronically he chronically has elevated CO2 levels, but he needs to be compliant with his AVAPS, I will have him use it throughout the day today, I went over his CODE STATUS, he wants to remain a full code. I advised him that likely if he would be intubated, he would likely remain ventilator dependent, likely require a trach, he tells me that he thinks he will do fine, because he made it off the ventilator a few months ago Vitals/I&O/Wt Last Vital Signs Temp 97.5 F L 09/19/21 10:53 Pulse 57 L 09/19/21 11:42 Resp 18 09/19/21 11:29 BP 106/69 09/19/21 10:53 Pulse Ox 93 09/19/21 11:29 09/18/21 09/19/21 09/19/21 22:59 06:59 14:59 Intake Total 980 / 1460 150 / 1610 480 / 480 Balance 980 / 1335 150 / 1485 480 / 480 Weight last 48 hrs Weight 94.256 kg Weight 95.254 kg Physical Exam Const: COMMON NORMALS: no acute distress and patient oriented x3 Resp: COMMON NORMALS: No retractions and No use of accessory muscles AUSCULTATION: diminished lung sounds diffuse Cardio: COMMON NORMALS: regular rate, regular rhythm, S1 normal heart sound present and S2 normal heart sound present RATE: regular rate RHYTHM: regular rhythm HEART SOUNDS: S1 normal heart sound present and S2 normal heart sound present GI: COMMON NORMALS: Normal to inspection, nondistended, normoactive bowel sounds present, Soft to palpation and non-tender PALPATION: Yes Soft to palpation Extremity: COMMON NORMALS: no pedal edema Neuro: COMMON NORMALS: patient oriented x3 Psych: COMMON NORMALS: mental status grossly normal Data : 09/19/21 04:25 09/19/21 04:25 Micro: Microbiology 09/17/21 19:01 Blood Culture - Preliminary Blood Staphylococcus epidermidis 09/17/21 18:59 Blood Culture - Preliminary Blood NEGATIVE TO DATE A&P Assessment and plan (1) COPD exacerbation: Status: Acute (2) CHF exacerbation: Status: Acute (3) Pneumonia: Status: Acute (4) Chronic respiratory failure with hypoxia and hypercapnia: Status: Acute (5) PAD (peripheral artery disease): Status: Acute (6) Mixed hyperlipidemia: Status: Acute (7) Acute respiratory failure with hypoxia: Status: Acute Plan Acute hypoxic respiratory failure secondary to COPD exacerbation, systolic CHF exacerbation, pneumonia -With end-stage COPD, cor pulmonale, AVAPS dependent -Compliant of AVAPS overnight -ABG pH 7.35, PCO2 70.6, PO2 84.9, bicarb 43.8 -Elevated CPK, 965, continue to monitor -Rocephin and azithromycin -Sputum cultures, blood cultures, -Solu-Medrol 40 every 8 hours -Decrease Lasix to 40 mg IV daily -Monitor respiratory status closely -Full code -Lovenox for DVT prophylaxis Elevated CPK, likely secondary to diuresis, Elevated troponins, likely supply demand ischemia from respiratory failure, continue to trend troponins, serial EKGs serial troponins, return for chest pain aspirin, statin Attestations Medical Necessity Statement*: Patient requires hospitalization for acute hypercarbic respiratory failure secondary to COPD Coding Level of Care Code Acute 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
[2021-09-19] MEDS: pantoprazole 40 mg SDV IVP (16:42)
[2021-09-19] MEDS: cefTRIAXone 1,000 MG in sodium chloride 0.9% (plus) 50 ML 100 MG IV (18:23)
[2021-09-19] MEDS: azithromycin 500 MG in sodium chloride 0.9% 250 ML 250 MG IV (20:06)
[2021-09-19] MEDS: enoxaparin 40 mg/0.4 mL Syringe SUBCUT (20:07)
[2021-09-20] VITALS (10 sets, daily range): BP systolic 106–132; BP diastolic 62–73; PULSE 57–85; RESP 20–22; TEMP 36.6–36.8; O2SAT 90–97
[2021-09-20] MEDS: midodrine 5 mg TABLET 10 MG PO ×2 (00:46→08:30)
[2021-09-20 04:08] LABS: Arterial Blood Gas Hematocrit 36.3 % (42-52); Base Excess ABG 16.1 mmol/L (-2.0-2.0); Blood Gas Allen Test Pos; Blood Gas Sample Site Radial, right; Blood Gas Sample Type Arterial; HCO3 ABG 44.2 mmol/L (22-26); Oxygen Device NC; PO2 ABG 76.8 mmHg (80.0-100.0)
[2021-09-20 04:11] LABS: ABG PCO2 71.5 mmHg (35-45)
[2021-09-20 05:30] LABS: Basophils % 0.1 %; Hematocrit 38.5 % (42.0-52.0); Hemoglobin 11.5 g/dL (11.7-16.6); Lymphocytes # 0.6 10^3/uL (0.8-4.8); Lymphocytes % 3.4 %; Mean Corpuscular HGB Conc 29.9 g/dL (30.0-36.0); Mean Corpuscular Hemoglobin 28.8 pg (28.0-34.0); Mean Corpuscular Volume 96.5 fl (80-94); Monocytes # 0.5 10^3/uL (0.2-0.9); Neutrophils # 16.44 10^3/uL (1.8-7.7); Neutrophils % 92.9 %; Nucleated Red Blood Cells % 0 %; Platelet Count 220 10^3/cmm (130-400); Red Blood Count 3.99 10^6/uL (4.1-5.3); Red Cell Distribution Width 13.1 % (12.1-15.1); White Blood Count 17.7 10^3/uL (4.0-10.0)
[2021-09-20 05:37] LABS: INR 1.19 (0.8-1.2)
[2021-09-20 05:43] LABS: Lactate (Lactic Acid level) 1.3 mmol/L (0.5-2.2)
[2021-09-20 05:49] LABS: Alanine Aminotransferase 8 U/L (0-41); Albumin Level 4.1 g/dL (3.5-5.2); Alkaline Phosphatase 87 IU/L (40-130); Anion Gap 7.9 (5-19); Aspartate Amino Transferase 14 U/L (0-40); Blood Urea Nitrogen 26 mg/dL (8-23); Calcium 9.1 mg/dL (8.5-10.5); Chloride 93 mmol/L (98-107); Globulin 2.1 g/dL (1.3-4.6); Glomerular Filtration Rate 111.8 mL/min (90-130); Glucose 134 mg/dL (65-115); Magnesium 2.1 mg/dL (1.7-2.3); Osmolality Calculated 293 mOsm/kg (285-295); Phosphorus 3.6 mg/dL (2.5-4.5); Potassium 4.9 mmol/L (3.5-5.1); Sodium 138 mmol/L (136-145); Total Bilirubin 0.4 mg/dL (0.15-1.2); Total Protein 6.2 g/dL (6.6-8.7)
[2021-09-20 05:53] LABS: NT Pro B Type Natriuretic Pept 1404 pg/mL (0-125); Procalcitonin 0.04 ng/mL (0-0.5)
[2021-09-20 06:11] LABS: Creatine Phosphokinase 180 U/L (39-308)
[2021-09-20 06:26] LABS: Carbon Dioxide 42 mmol/L (22-29)
[2021-09-20] MEDS: ipratropium-albuterol 3 mL Neb INHALATION ×2 (07:54→11:48)
[2021-09-20] MEDS: budesonide 0.5 mg/2 mL Neb INHALATION (07:54)
[2021-09-20] MEDS: aspirin 81 mg EC Tablet PO (08:26)
[2021-09-20] MEDS: citalopram 20 mg Tablet 40 MG PO (08:29)
[2021-09-20] MEDS: atorvastatin 40 mg Tablet PO (08:29)
[2021-09-20] MEDS: spironolactone 25 mg Tablet PO (08:30)
[2021-09-20] MEDS: losartan 50 mg Tablet 25 MG PO (08:30)
[2021-09-20] MEDS: magnesium lactate 84 mg Tablet PO (08:30)
[2021-09-20] MEDS: potassium chloride ER 20 mEq Tablet PO (08:30)
[2021-09-20] MEDS: metoprolol tartrate 25 mg Tablet PO (08:30)
[2021-09-20] MEDS: bumetanide 0.25 mg/mL SDV 4 mL 1 MG IVP (09:45)
--- NOTE | 2021-09-20 10:37 | P.DS_ITS ---
Discharge Providers Date of Admission: 09/17/21 17:01 Date of Discharge: September 20, 2021 Attending Provider at Admission: Evan George MD Attending Provider at Discharge: Evan George MD Primary Care Provider: TINA Eastman Diagnoses at Discharge Discharge Diagnosis (1) COPD exacerbation: Status: Acute (2) CHF exacerbation: Status: Acute (3) Pneumonia: Status: Acute (4) Chronic respiratory failure with hypoxia and hypercapnia: Status: Acute (5) PAD (peripheral artery disease): Status: Acute (6) Mixed hyperlipidemia: Status: Acute (7) Acute respiratory failure with hypoxia: Status: Acute Reason for Visit Reason for Visit: INCREASED SOB Hospital Course Hospital Course Jaime Olivares is a 71 year old male with a past medical history of with a past medical history of chronic hypoxic respiratory failure on 4 to 5 L oxygen at baseline, requires trilogy at home, end-stage COPD, cor pulmonale, continues to smoke, dyslipidemia, bronchial disease, polyneuropathy, GERD, obstructive sleep apnea, and known carcinoma of the colon status post partial colectomy, 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 Patient was admitted to [facility] for acute on chronic COPD exacerbation, hypoxic hypercarbic respiratory failure, diastolic CHF exacerbation Was managed with broad-spectrum antibiotic therapy, steroid therapy, diuretic therapy. Patient clinically improved, there was issues with compliance with his AVAPS during his hospitalization. On discharge I have strongly advised for him to remain compliant with AVAPS, his chronically elevated PCO2 levels, he should use AVAPS schedule during the night, as needed during the day if he were to be increasingly confused or short of breath. I have discharged him on a present taper, cefdinir. Follow-up with pulmonary as outpatient. Patient was advised to stop smoking. If you were to have recurrent shortness of breath go to the emergency room Physical Exam Const: COMMON NORMALS: no acute distress and patient oriented x3 Resp: COMMON NORMALS: normal respiratory effort, No retractions and No use of accessory muscles AUSCULTATION: diminished lung sounds diffuse Cardio: COMMON NORMALS: regular rate, regular rhythm, S1 normal heart sound present and S2 normal heart sound present RATE: regular rate RHYTHM: regular rhythm HEART SOUNDS: S1 normal heart sound present and S2 normal heart sound present GI: COMMON NORMALS: Normal to inspection, nondistended, normoactive bowel sounds present, Soft to palpation and non-tender PALPATION: Yes Soft to palpation Extremity: COMMON NORMALS: no pedal edema Neuro: COMMON NORMALS: patient oriented x3 Psych: COMMON NORMALS: mental status grossly normal Discharge Data Studies Completed and Pending Completed Studies During Hospitalization Category Date Time Status XR chest 1V portable [id number] Routine Exams 09/18/21 07:00 Completed XR chest 1V portable [id number] Urgent Exams 09/17/21 14:53 Completed XR chest 2V* [id number] Urgent Exams 09/17/21 16:14 Completed Pending at discharge Category Date Time Status Blood Culture Stat Lab 09/17/21 19:01 Results Sputum Culture and Gram Stain Stat Lab 09/17/21 18:39 Uncollected Radiology Impressions Chest X-Ray 09/18/21 07:00 IMPRESSION: There appear to be progression of the lower lung zone opacities however in part this may be due to poor inspiration and atelectasis. Laboratory Results WBC 17.7 10^3/uL (4.0-10.0) H 09/20/21 05:15 RBC 3.99 10^6/uL (4.1-5.3) L 09/20/21 05:15 Hgb 11.5 g/dL (11.7-16.6) L 09/20/21 05:15 Hct 38.5 % (42.0-52.0) L 09/20/21 05:15 MCV 96.5 fl (80-94) H 09/20/21 05:15 MCH 28.8 pg (28.0-34.0) 09/20/21 05:15 MCHC 29.9 g/dL (30.0-36.0) L 09/20/21 05:15 RDW 13.1 % (12.1-15.1) 09/20/21 05:15 Plt Count 220 10^3/cmm (130-400) 09/20/21 05:15 MPV 10.0 fL (7.4-10.4) 09/20/21 05:15 Neut % (Auto) 92.9 % 09/20/21 05:15 Lymph % (Auto) 3.4 % 09/20/21 05:15 Preble % (Auto) 3.0 % 09/20/21 05:15 Eos % (Auto) 0.0 % 09/20/21 05:15 Baso % (Auto) 0.1 % 09/20/21 05:15 Neut # (Auto) 16.44 10^3/uL (1.8-7.7) H 09/20/21 05:15 Lymph # (Auto) 0.6 10^3/uL (0.8-4.8) L 09/20/21 05:15 Preble # (Auto) 0.5 10^3/uL (0.2-0.9) 09/20/21 05:15 Eos # (Auto) 0.0 10^3/uL (0.0-0.8) 09/20/21 05:15 Baso # (Auto) 0.0 10^3/uL (0.0-0.1) 09/20/21 05:15 Nucleated RBC % (auto) 0 % 09/20/21 05:15 Nucleated RBCs # 0.0 /100WBC 09/20/21 05:15 PT 15.40 SECONDS (12.1-14.9) H 09/20/21 05:15 INR 1.19 (0.8-1.2) 09/20/21 05:15 Specimen Type Arterial 09/20/21 03:58 Sample Site Radial, right 09/20/21 03:58 ABG pH 7.40 (7.35-7.45) 09/20/21 03:58 ABG pCO2 71.5 mmHg (35-45) H* 09/20/21 03:58 ABG pO2 76.8 mmHg (80.0-100.0) L 09/20/21 03:58 ABG HCO3 44.2 mmol/L (22-26) H 09/20/21 03:58 ABG Base Excess 16.1 mmol/L (-2.0-2.0) H 09/20/21 03:58 Placido Test Pos 09/20/21 03:58 Hematocrit 36.3 % (42-52) L 09/20/21 03:58 O2 Delivery Device Nc 09/20/21 03:58 O2 Liters/Min 3.0 % 09/20/21 03:58 FiO2 36.0 % 09/17/21 17:41 Head Cd Reactor Operator ID Cristy 09/20/21 03:58 Sodium 138 mmol/L (136-145) 09/20/21 05:15 Potassium 4.9 mmol/L (3.5-5.1) 09/20/21 05:15 Chloride 93 mmol/L (98-107) L 09/20/21 05:15 Carbon Dioxide 42 mmol/L (22-29) H* 09/20/21 05:15 Anion Gap 7.9 (5-19) 09/20/21 05:15 BUN 26 mg/dL (8-23) H 09/20/21 05:15 Creatinine 0.7 mg/dL (0.7-1.2) 09/20/21 05:15 GFR Calculation 111.8 mL/min (90-130) 09/20/21 05:15 Glucose 134 mg/dL (65-115) H 09/20/21 05:15 Calculated Osmolality 293 mOsm/kg (285-295) 09/20/21 05:15 Lactic Acid 2.4 mmol/L (0.5-2.2) H 09/17/21 18:59 Lactic Acid (Sepsis) 2.0 mmol/L (0.5-2.2) 09/17/21 21:29 Lactate 1.3 mmol/L (0.5-2.2) 09/20/21 05:15 Calcium 9.1 mg/dL (8.5-10.5) 09/20/21 05:15 Phosphorus 3.6 mg/dL (2.5-4.5) 09/20/21 05:15 Magnesium 2.1 mg/dL (1.7-2.3) 09/20/21 05:15 Total Bilirubin 0.4 mg/dL (0.15-1.2) 09/20/21 05:15 AST 14 U/L (0-40) 09/20/21 05:15 ALT 8 U/L (0-41) 09/20/21 05:15 Alkaline Phosphatase 87 IU/L (40-130) 09/20/21 05:15 Creatine Kinase 180 U/L (39-308) 09/20/21 05:15 Troponin T Baseline 66 ng/L (0-15) H 09/17/21 15:40 Troponin T 120 Minute 63.54 ng/L (0-15) H 09/17/21 18:59 Delta Troponin T -2.46 ABS# (0-10) L 09/17/21 18:59 Troponin T Hi Sens 6Hr 72.36 ng/L (0-15) H 09/17/21 21:29 Troponin T Hi Sens 6Hr Delta 6.36 ng/L (0-12) 09/17/21 21:29 C-Reactive Protein 4.0 mg/L (0.0-4.9) 09/20/21 05:15 NT-Pro-B Natriuret Pep 1404 pg/mL (0-125) H 09/20/21 05:15 Total Protein 6.2 g/dL (6.6-8.7) L 09/20/21 05:15 Albumin 4.1 g/dL (3.5-5.2) 09/20/21 05:15 Globulin 2.1 g/dL (1.3-4.6) 09/20/21 05:15 Procalcitonin 0.04 ng/mL (0-0.5) 09/20/21 05:15 Nasal Influ A H1 2009 PCR Not detected (NOT DETECT) 09/17/21 15:55 Coronavirus 229E (PCR) Not detected (NOT DETECT) 09/17/21 15:55 Influenza A (H1) PCR Not detected (NOT DETECT) 09/17/21 15:55 Influenza A (H3) PCR Not detected (NOT DETECT) 09/17/21 15:55 Influenza Type A (PCR) Not detected (NOT DETECT) 09/17/21 15:55 Influenza Type B (PCR) Not detected (NOT DETECT) 09/17/21 15:55 SARS-CoV-2 (PCR) Not detected (NOT DETECT) 09/17/21 15:55 Vitals Last Vital Signs Temp 98.2 F 09/20/21 07:58 Pulse 59 L 09/20/21 08:00 Resp 20 H 09/20/21 07:58 BP 111/69 09/20/21 07:58 Pulse Ox 91 09/20/21 07:58 Discharge Plan Discharge Patient Disposition: Home Condition: Stable Prescriptions: New prednisone 5 mg tablet See Rx Instructions .ROUTE .COMPLEX Qty: 105 0RF Rx Instructions: prednisone 5 mg: take 8 tablets (40 mg) on Day 1-3; 7 tablets (35 mg) on Day 4-7; then decrease by 1 tablet every day 3 until finished cefdinir 300 mg capsule 300 mg PO BID 5 Days Qty: 10 0RF Continued atorvastatin 40 mg tablet 40 mg PO DAILY Qty: 90 3RF albuterol sulfate 2.5 mg /3 mL (0.083 %) solution for nebulization 2.5 mg INHALATION QID PRN (Reason: Shortness Of Breath) 0RF butenafine [Lotrimin Ultra] 1 % cream 1 applic TOPICAL BID PRN (Reason: Allergic Reaction) 0RF Restasis MultiDose 0.05 % drops 1 drop ophthalmic (eye) Q12H 0RF mupirocin 2 % ointment 1 applic TOPICAL BID Qty: 22 2RF levocetirizine [Xyzal] 5 mg tablet 5 mg PO DAILY 0RF budesonide-formoterol [Symbicort] 160-4.5 mcg/actuation HFA aerosol inhaler 2 puff inhalation BID 0RF Spiriva with HandiHaler 18 mcg capsule, w/inhalation device 1 cap inhalation DAILY 30 Days Qty: 60 3RF Rx Instructions: puncture 1 cap using device; one dose = 2 inhalations (DME) walker with seat /wheels See Rx Instructions .Route .MEDSUPPLY Qty: 1 0RF Rx Instructions: [id number] 99 months albuterol sulfate [ProAir HFA] 90 mcg/actuation HFA aerosol inhaler See Rx Instructions .ROUTE .COMPLEX Qty: 8.5 3RF Dose Instruction: INHALE 2 PUFFS INTO LUNGS EVERY 6 HOURS NEEDED FOR SHORTNESS OF BREATH Rx Instructions: INHALE 2 PUFFS INTO LUNGS EVERY 6 HOURS NEEDED FOR SHORTNESS OF BREATH ipratropium-albuterol 0.5 mg-3 mg(2.5 mg base)/3 mL solution for nebulization See Rx Instructions .ROUTE .COMPLEX Qty: 360 3RF Dose Instruction: NEBULIZE 1 VIAL FOUR TIMES DAILY NEEDED FOR WHEEZING Rx Instructions: NEBULIZE 1 VIAL FOUR TIMES DAILY NEEDED FOR WHEEZING losartan 25 mg tablet 25 mg PO DAILY Qty: 90 3RF metoprolol tartrate 25 mg tablet 25 mg PO BID Qty: 60 5RF budesonide [Pulmicort] 0.5 mg/2 mL suspension for nebulization 0.5 mg INHALATION BID 90 Days Qty: 360 3RF Lidocaine Viscous 2 % solution See Rx Instructions .ROUTE .COMPLEX Qty: 600 5RF Dose Instruction: TAKE ONE TEASPOONFUL ( 5 ML'S ) BY MOUTH EVERY THREE HOURS NEEDED FOR MOUTH PAIN Rx Instructions: TAKE ONE TEASPOONFUL ( 5 ML'S ) BY MOUTH EVERY THREE HOURS NEEDED FOR MOUTH PAIN citalopram 40 mg tablet 40 mg PO DAILY 30 Days Qty: 30 5RF aspirin [Adult Aspirin Regimen] 81 mg tablet,delayed release (DR/EC) 81 mg PO DAILY Qty: 90 1RF spironolactone 25 mg tablet 25 mg PO DAILY Qty: 90 1RF pantoprazole 40 mg tablet,delayed release (DR/EC) 40 mg PO DAILY 0RF magnesium L-lactate [Magtab] 84 mg tablet extended release 84 mg PO DAILY 0RF nystatin 100,000 unit/mL Suspension 5 ml BUCCAL DAILY 0RF Rx Instructions: SWISH AND SWALLOW ONE TEASPOONFUL ( 5 ML'S ) BY MOUTH FOUR TIMES DAILY azelastine 137 mcg (0.1 %) aerosol,spray 1 - 2 spray INTRANASAL BID 0RF naloxone [Narcan] 4 mg/actuation spray,non-aerosol 4 mg intranasal Q2M PRN (Reason: opioid overdose) Qty: 2 0RF Rx Instructions: spray 1 dose into ONE nostril; alternate nostrils w each dose until help arrives albuterol sulfate 90 mcg/actuation HFA aerosol inhaler 2 inh INHALATION Q4H PRN (Reason: shortness of breath or wheezing) Qty: 18 0RF morphine 15 mg tablet 30 mg PO QID PRN (Reason: Severe Pain) 0RF Changed furosemide 20 mg tablet 20 mg PO BID Qty: 0 0RF potassium chloride 20 mEq tablet extended release 20 meq PO BID Qty: 0 0RF Held prednisone 5 mg tablet 5 mg PO DAILY 0RF Hold Instructions: Resume on 10/13/21. azithromycin 500 mg tablet 500 mg PO EVERY OTHER DAY 0RF Hold Instructions: Resume on 09/26/21. hold until cefdinnir completed Discontinued doxycycline hyclate 100 mg capsule 100 mg PO BID 0RF Discharge Orders: Discharge Order (Routine); Ordered 09/20/21 Ordered By: Evan George Referrals: [facility] [Other] May Knapp FNP-C [Primary Care Provider] - Discharge Diet: Regular Discharge Activity: Resume usual activity Patient Instructions: Opioid Safety Activity Restrictions/Additional Instructions: -Please he uses AVAPS as prescribed -Schedule the AVAPS during the night, as needed during the day for shortness of breath or increased confusion -If use during the day, use for least 3 hours -Please take steroid taper as prescribed -Please monitor for worsening shortness of breath go to emergency room Discharge Attestations Time Spent in Discharge Care*: less than 30 min Quality Metrics Clinical Quality Measures [ No reported AMI, CVA or VTE this stay] Coding Level of Care Code Acute [facility] note Diagnoses COPD exacerbation J44.1 CHF exacerbation I50.9 Pneumonia J18.9 Chronic respiratory failure with hypoxia and hypercapnia J96.11; J96.12 PAD (peripheral artery disease) I73.9 Mixed hyperlipidemia E78.2 Acute respiratory failure with hypoxia J96.01
--- NOTE | 2021-09-20 12:02 | PC.NURSE ---
Got ahold of the to let her know that the patient was discharged. stated she could not get up here yet but could in a couple of hours.
== END 2021-09-20 16:55 | disposition home or self-care (01) | DRG 291 ==
LOC: ER 17:09 → MEDSURG 09-18 11:06
PROVIDERS: Admitting Provider Family Medicine; Emergency Provider Emergency Medicine; PCP Nurse Practitioner Family; Visit Provider Family Medicine
DX: I50.23 Acute on chronic systolic (congestive) heart failure (principal); J18.9 Pneumonia, unspecified organism; J96.21 Acute and chronic respiratory failure with hypoxia; J44.1 Chronic obstructive pulmonary disease with (acute) exacerbation; J44.0 Chronic obstructive pulmonary disease with (acute) lower respiratory infection; I24.8 Other forms of acute ischemic heart disease; Z90.49 Acquired absence of other specified parts of digestive tract; F17.210 Nicotine dependence, cigarettes, uncomplicated; Z99.81 Dependence on supplemental oxygen; I27.81 Cor pulmonale (chronic); E78.5 Hyperlipidemia, unspecified; G62.9 Polyneuropathy, unspecified; K21.9 Gastro-esophageal reflux disease without esophagitis; G47.33 Obstructive sleep apnea (adult) (pediatric); Z85.038 Personal history of other malignant neoplasm of large intestine; Z85.21 Personal history of malignant neoplasm of larynx; Z92.21 Personal history of antineoplastic chemotherapy; Z92.3 Personal history of irradiation; Z79.891 Long term (current) use of opiate analgesic; Z79.82 Long term (current) use of aspirin; Z79.51 Long term (current) use of inhaled steroids; F40.240 Claustrophobia; E78.2 Mixed hyperlipidemia; I73.9 Peripheral vascular disease, unspecified
CPT/HCPCS: 36415; 36600; 71045; 71046; 80048; 80053; 82550; 82803; 83605; 83735; 83880; 84100; 84145; 84484; 85025; 85610; 86140; 87040; 87150; 87205; 87631; 87635; 93005; 94640; 94660; 94664; 96372; C9113; J0456; J0696; J1650; J1940; J2920; J2930; J3475; J3490; J7050; J7626